=== PATIENT | female | born 1975 | race Caucasian/White ===

== ENCOUNTER → 2019-02-20 10:51 | Outpatient (CLI) | payer OTHER, SELFPAY ==
[2019-02-23 10:20] LABS: HPV Reflexed? NOT INDICATED
== END ==
PROVIDERS: Referring Provider Obstetrics & Gynecology; Visit Provider Obstetrics & Gynecology
DX: Z01.419 Encounter for gynecological examination (general) (routine) without abnormal findings (principal)
CPT/HCPCS: 87624; 88175; G0145

== ENCOUNTER → 2024-06-13 | Outpatient (CLI) | payer OTHER, SELFPAY ==
--- NOTE | 2024-06-13 | IMM_PTH ---
PATIENT: STEPHANIE LIN LOC: [facility] U#:[id number] AGE/SX: 48/F ROOM: RE06/13/[address]: Dr. Gareth Mcdaniel MD : 1975 BED: DIS: 06/13/2024 SPEC #: [id number] RECD: 06/17/24 10:29 STATUS: CAMPOS REQ #: [id number] ROSITA: 06/13/24 00:[address]: Gareth Mcdaniel DEPT: IMMUNOHISTOCHEMISTRY RECD BY: Roberto Elise ENTERED: 06/17/24 10:31 SP TYPE: IMMUNO OTHR DR: TATE Genao Tissues: A - Left breast, NOS B - Axillary lymph node, NOS Procedures: E-CAD (initial) Mammoglobin (initial) CALPONIN-1 (add) CK5-6 (add) CK7 (add) CK8 (add) E-CAD (add) HER2 QUAN (add) KI-67 (add) P53 (add) AK (add) GATA3 (add) P40 (add) ER (initial) PHYSICIAN & [address] [address] SPECIMEN INFORMATION: Tissue Source: A- Left breast, B- Axillary lymph node Clinical Info: Left breast mass and axillary lymph node biopsy Specimen Number: [id number] A, B CPT code: [id number] METHODOLOGY: Deparaffinized sections of prefer/formalin-fixed tissue or PAP/DQ stained slides are incubated with monoclonal/polyclonal antibodies/oligonucleotide probes. Localization is made via biotin free immunoperoxidase method. Appropriate controls are performed and reacted as expected. Results on target cell population are indicated in the following table: RESULTS: ANTIBODY / CLONE RESULT Block A E-Cad (ECH-6) positive CK8 (37mahzN63) positive Calponin-1 (DY711N) negative * CK5-6 (D5 & 1684) negative * P40 (BC28) negative * P53 (DO-7) positive, rare cells (wild type pattern) Ki-67 (30-9) positive, low, ~10% * Positive in the myoepithelial cells in the areas of ductal carcinoma in situ MORPHOMETRIC ANALYSIS ER (clone 6F11) >95%, moderate intensity AK (clone 16/1E2) >95 %, strong intensity Her-2Neu (clone CB11) 2+ The prognostic test for HER2 is performed on formalin-fixed paraffin embedded tissue. A 3+ (positive) staining pattern is defined as intense, homogeneous, complete, circumferential membranous staining in >10% of contiguous tumor cells. A similar weak (2+) staining pattern is interpreted as equivocal. LISA follow-up testing is recommended for all equivocal cases. Positivity/negativity for ER/AK is reported if > or < 1% of the tumor cells are immuno- reactive, respectively. The ASCO/CAP criteria is used for scoring. Reference: Journal of Clinical Oncology, 2013; 31:3622-5677 & 2010; 16:8871-5998. Ischemic time: Less than one hour. Duration of fixation: __ Hrs; Sample Adequate: Yes. These assays have not been validated on decalcified tissues. Results should be interpreted with caution given the likelihood of false negativity on decalcified specimens or fixation greater than 72 hours. Alternative testing methods (FISH/dualISH for Her2; gene expression for ER) are recommended, if applicable. Please notify the laboratory if additional testing is required. Block B E-Cad (ECH-6) positive Mammaglobin (31A5) negative GATA3 (L50-823) positive CK7 (OV-TL12/30) positive CK8 (60fmrcF58) positive These tests were developed and their performance characteristics determined by [facility]. They may not have been cleared or approved by the U.S. Food and Drug Administration. The FDA has determined that such clearance or approval is not necessary. The above immunohistochemical/dualISH markers are ordered and reviewed by the Pathologist. INTERPRETATION: A. 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 Positive for estrogen receptors (favorable prognostic indicator). Positive for progesterone receptors (favorable prognostic indicator). Equivocal for overexpression of LWB5vyw. B. Left axillary lymph node, biopsy: Metastatic carcinoma, consistent with breast primary (ductal carcinoma). SJ.mr 06/18/2024
--- NOTE | 2024-06-13 15:15 | BREAST_PTH ---
PATIENT: STEPHANIE LIN LOC: [facility] U#:[id number] AGE/SX: 48/F ROOM: RE06/13/[address]: Dr. Gareth Mcdaniel MD : 1975 BED: DIS: 06/13/2024 SPEC #: [id number] RECD: 06/14/24 08:49 STATUS: CAMPOS RETahmina #: [id number] ROSITA: 06/13/24 15:[address]: Gareth Mcdaniel DEPT: SURGICAL PATHOLOGY RECD BY: Roberto Elise ENTERED: 06/14/24 08:50 SP TYPE: BREAST OTHR DR: TATE Genao Tissues: A - Left breast, NOS B - Axillary lymph node, NOS Procedures: Surgery Specimen Level IV HEADER OPERATION: Left breast and left axillary lymph node biopsy PRE-OP DIAGNOSIS: Left breast mass and axillary lymph node biopsy TISSUE SUBMITTED: A- Left breast mass, B- Left axillary lymph node MICROSCOPIC DIAGNOSIS A. Left breast mass, core biopsy: Invasive ductal carcinoma. Ductal carcinoma in situ. See cancer summary in the comment section. B. Left axillary lymph node, core biopsy: Metastatic carcinoma, consistent with breast primary. 06/17/2024 COMMENT A. Immunohistochemistry ([id number]) supports the above diagnosis. INVASIVE BREAST CANCER SUMMARY: Procedure: Needle core biopsy Specimen Laterality: Left Tumor site: Not specified Histologic type: Invasive ductal carcinoma, not otherwise specified Provisional Histologic grade: Glandular/tubule Differentiation Score: 2 Nuclear Pleomorphism Score: 2 Mitotic Rate Score:1 Overall grade: 1 (score of 5) Tumor Size (greatest dimension): 1.1cm in greatest length Ductal Carcinoma In situ: Present Architectural Pattern: Solid Nuclear Grade: 2 Necrosis: Not identified Angiolymphatic Invasion: Not identified Microcalcifications: Not identified Additional Findings: None Breast Marker Study: RF25-32 ER: positive (>95, moderate intensity) RI: positive (>95, strong intensity) Her2: equivocal (2+) Ki67: positive, low, ~10% [id number]: is being performed and will be reported as an addendum. The above summary is in compliance with [employer] [place] [employer] (CAP) Cancer Protocols Checklist and [place] [employer] Joint Committee on Cancer (AJCC), Staging Manual, 8th Ed. B. Immunohistochemistry ([id number]) supports the above diagnosis. Metastatic tumor measures 0.5 cm in greatest dimension. This case has been reviewed in consultation with Dr. Goetz who concurs with the above diagnosis. IDC:PW MICROSCOPIC DESCRIPTION Slides are reviewed. GROSS DESCRIPTION A. Received in fixative is one container labeled with the patient's name and designated Left breast. The specimen consists of multiple elongated fragments of barber soft tissue that in aggregate measure 1.5 x 0.3 x 0.1 cm. The specimen is totally submitted in one cassette. B. Received in fixative is one container labeled with the patient's name and designated Left axillary lymph node. The specimen consists of multiple elongated fragments of barber-yellow soft tissue that in aggregate measure 1.5 x 0.3 x 0.1 cm. The specimen is totally submitted in one cassette. 06/14/2024 TC:0 CPT:[id number] ADDENDUM ADDENDUM ADDENDUM ADDENDUM ADDENDUM ADDENDUM ADDENDUM ADDENDUM ADDENDUM ADDENDUM ADDENDUM ADDENDUM ADDENDUM ADDENDUM ADDENDUM ADDENDUM ADDENDUM 07/05/2024 13:36 ADDENDUM 07/05/2024 13:36 ADDENDUM 07/05/2024 13:36 ADDENDUM 07/05/2024 13:36 ADDENDUM 07/05/2024 13:36 AUTOMATED BREAST CANCER HER2/QUAN FISH ANALYSIS FROM [employer] TEST DESCRIPTION INTERPRETATION AND RESULTS [id number] NEGATIVE / NOT AMPLIFIED Her2: CEP-17 ratio: 1.4:1 Average HER2 signal: 3.8 Average CEP-17 signal: 2.7 Number of selected invasive cells scanned: 50 Please see complete report in e-chart or EMR
== END | disposition home or self-care (01) ==
LOC: LABSPEC 06-14 08:29
PROVIDERS: Visit Provider Surgery
DX: N63.20 Unspecified lump in the left breast, unspecified quadrant (principal)
CPT/HCPCS: 88305; 88341; 88342

== ENCOUNTER → 2024-06-24 | Outpatient (CLI) | payer OTHER, SELFPAY ==
--- NOTE | 2024-06-24 12:35 | MRI_ITS ---
STUDY: BILATERAL BREAST MR WITHOUT AND WITH CONTRAST REASON FOR EXAM: Female, 48 years old. Left breast cancer TECHNIQUE: Multi-sequence multi-echo imaging of both breasts was performed with a dedicated breast coil. T1-weighted and T2-weighted images were performed before the administration of contrast. T1-weighted images were also performed after the intravenous administration of 14 cc of Clariscan contrast. COMPARISON: Bilateral diagnostic mammogram dated June 10, 2024 and left breast ultrasound June 10, 2019 FINDINGS: RIGHT BREAST: Heterogeneously dense fibroglandular tissue with minimal background enhancement. No abnormal enhancing masses or areas of non-mass enhancement in the right breast. LEFT BREAST: Heterogeneously dense fibroglandular tissue with minimal background. Irregular enhancing mass at the 2:00 to 3:00 position measuring 2.3 cm x 1.2 cm x 2 cm with a tissue clip artifact within the mass. This mass corresponds to the mass shown on the left breast ultrasound examination. No other abnormal enhancing areas identified. No enlarged or abnormal lymph nodes. No abnormality in the visualized regions of the chest or liver. MRI/Breast Bilateral W/O and W IMPRESSION: Enhancing mass at the 2:00 to 3:00 position of the left breast corresponding to the ultrasonographic abnormality representing the index lesion. No other abnormality identified. CATEGORY: BIRADS Category 6: Known Biopsy-Proven Malignancy - Appropriate Action Should Be Taken. A letter regarding these results will be sent to the patient by the facility within 30 days. Electronically Signed: Luisito Arevalo MD at 12:53 EST ,
== END | disposition home or self-care (01) ==
LOC: MRI 12:30
PROVIDERS: Referring Provider Surgery; Visit Provider Surgery
DX: C50.919 Malignant neoplasm of unspecified site of unspecified female breast (principal)
CPT/HCPCS: 77049; A9575; A4216; C8908

== ENCOUNTER → 2024-07-16 | Outpatient (CLI) | payer OTHER, SELFPAY ==
--- NOTE | 2024-07-16 12:29 | CT_ITS ---
PROCEDURE: CHEST WITH CONTRAST REASON FOR EXAM: Left breast cancer with lymph node involvement. TECHNIQUE: Chest CT with intravenous contrast. One or more dose reduction techniques were used (e.g., Automated exposure control, adjustment of the mA and/or kV according to patient size, use of iterative reconstruction technique). CT Dose Length Product Total 343.47 mGy.cm COMPARISON: None. FINDINGS: Hardware: None. Lymph nodes: No mediastinal, hilar or axillary lymphadenopathy. Small nonspecific bilateral axillary lymph nodes are noted. Heart and Vasculature: Normal heart size. No pericardial effusion. Thoracic aorta and pulmonary arteries are unremarkable. Lungs and Airways: The lungs are normally expanded and clear. Pleura: No pleural effusion. No pneumothorax. Upper Abdomen: Visualized portions of the upper abdominal viscera are unremarkable. Bones: Bone windows are unremarkable. Possible surgical clip noted in the lateral left breast. CT/Chest WITH Contrast IMPRESSION: Unremarkable CT of the chest with intravenous contrast. Small nonspecific bilateral axillary lymph nodes are noted. Reading Location: [id number]
== END | disposition home or self-care (01) ==
LOC: CT 12:22
PROVIDERS: Referring Provider Student in an Organized Health Care Education/Training Program; Visit Provider Student in an Organized Health Care Education/Training Program
DX: C50.912 Malignant neoplasm of unspecified site of left female breast (principal); Z17.0 Estrogen receptor positive status [ER+]
CPT/HCPCS: 71260; Q9967

== ENCOUNTER 2024-08-13 09:32 | Day surgery (SDC) | payer OTHER, SELFPAY ==
[2024-08-13] VITALS (13 sets, daily range): BP systolic 107–138; BP diastolic 58–80; PULSE 59–100; RESP 14–18; TEMP 36.4–37.3; O2SAT 98–100; BMI 22.4
[2024-08-13 09:59] LABS: Internal QC Validated? YES +Cl - CLEAR BKGD; Pregnancy, Urine Negative Negative
--- NOTE | 2024-08-13 10:02 | NM_ITS ---
PROCEDURE: LYMPH NODE INJECTION ONLY REASON FOR EXAM: BREAST CANCER TECHNIQUE: 570 microcuries of Tilmanocept injected subdermally in the left breast. RADIOPHARMACEUTICAL: 507 microcuries of Tilmanocept COMPARISON: None FINDINGS: Subdermal injection of the radiopharmaceutical. NM/Lymph Node Injection Only IMPRESSION: Subdermal injection of the radiopharmaceutical. Reading Location: [place] [address]
--- NOTE | 2024-08-13 10:35 | PCM.PRE.AN2 ---
ASA Classification* ASA Classification ASA Classification: 2 Assessment & Plan Anesthesia* Anesthesia Assessment Anesthesia Assessment: Discussed sedation and/or anesthesia options, risks, benefits, and alternatives with patient/parents/legal guardian/POA. Questions invited. The patient/parents/legal guardian/POA seems to understand and agrees to proceed with anesthesia plan. Reviewed the physical assessment, medical history, allergy history and patient home medications list prior to surgery/procedure/anesthetic and documented any changes. Performed airway and anesthesia risk assessments. Please have background propofol for PONV prevention Anesthesia Type Anesthesia Type: General History Source History Obtained from:: Patient and Chart Anesthesia Focused Assessment* Temperature: 99.1 F Pulse Rate: 73 Blood Pressure: 138/80 Respiratory Rate: 16 Pulse Ox: 100 Oxygen Delivery Method: Room Air Airway Assessment Mouth opens: >3 cm Mallampati Score: I Teeth Condition: Intact and Chipped/Broken (front slightly chipped) Neck Range of motion (ROM): Full ROM Focused Labs Anesthesia Preop lab: CBC WBC 6.5 K/mm3 (4.4-11.0) 07/08/24 10:20 07/08/24 RBC 5.16 M/mm3 (4.2-5.4) 07/08/24 10:20 07/08/24 Hgb 11.2 g/dL (12.0-15.0) L 07/08/24 10:20 07/08/24 Hct 37.3 % (37-47) 07/08/24 10:20 07/08/24 Plt Count 292 K/mm3 (150-450) 07/08/24 10:20 07/08/24 CHEMISTRY Potassium 4.2 mmol/L (3.5-5.1) 07/08/24 10:20 07/08/24 Sodium 140 mmol/L (136-145) 07/08/24 10:20 07/08/24 BUN 12 mg/dL (7-18) 07/08/24 10:20 07/08/24 Creatinine 0.64 mg/dL (0.55-1.02) 07/08/24 10:20 07/08/24 Glucose 95 mg/dL (74-106) 07/08/24 10:20 07/08/24 COAG Urine Test Negative Negative 08/13/24 09:45 08/13/24 Pre-Assessment Diagnosis/Proposed Procedure Planned Operative Procedure(s): LEFT BREAST STEREOTACTIC WIRE LOC LUMPECTOMY X2 SLN BIOPSY AXILLARY DISECTION WITH RIGHT PORT INSERTION PER DR BURNS LEFT AXILLARY IMMEDIATED LYMPHATIC RECONSTRUCTION IWTH LYPHOVENOUS ANASTOMOSIS PER DR FLORES Anesthesia History Anesthesia History - manager residential: Anesthesia History - manager residential Hx Hospitalization No 08/01/24 13:18 Any Problems With Anesthesia No 08/01/24 13:18 Cholinesterase deficiency No 08/01/24 13:18 You/Your Family Experience No 08/01/24 13:18 fever (hyperthermia) with Relationship Recent Exposure to Contagious No 08/13/24 09:57 Disease Does patient have nerve No 08/01/24 13:18 stimulator Patient instructed to have device shut off --Does patient have Pacemaker No 08/13/24 09:57 or ICD? When Was Last Pacemaker Check QUESTION #4 FULL TEXT: You/Your Family Experience fever (hyperthermia) with Anesthesia Any additional information?: No Last Oral Intake Last Oral intake: Last Oral Intake NPO since 07:00 08/13/24 09:57 Meds taken in AM with sips of No 08/13/24 09:57 water? Meds patient instructed to take am of surgery Any additional information?: No PONV PONV - manager residential: PONV - manager residential Female Yes 08/01/24 13:18 HX of Motion Sickness Yes 08/01/24 13:18 HX of N/V After Surgery No 08/01/24 13:18 Non-Smoker Yes 08/01/24 13:18 Duration of Surgery greater Yes 08/01/24 13:18 than 60 minutes Number of Risk Factors 4 08/01/24 13:18 PONV Score Severe Risk 08/01/24 13:18 Any additional information?: No Height & Weight Height & Weight: Anesthesia: Height & Weight Height 5 ft 9 in 08/13/24 09:57 Weight: 69 kg 08/13/24 09:57 Body Mass Index (BMI) 22.4 08/13/24 09:57 Respiratory Assessment Respiratory Assessment - manager residential: Respiratory Tract Infection Hx - manager residential Hx Respiratory Tract Infection No 08/01/24 13:18 Any additional information?: No STOP Sleep Apnea STOP Sleep Apnea - manager residential: STOP Sleep Apnea - manager residential Hx Hypertension No 08/01/24 13:18 Hx Sleep Apnea No 08/01/24 13:18 CPAP BIPAP Do you snore loudly (louder No 08/01/24 13:18 than talking or can be heard Do you often feel tired/ No 08/01/24 13:18 fatigued/ sleepy during daytime? Has anyone observed you stop No 08/01/24 13:18 breathing during sleep? STOP Results Negative 08/01/24 13:18 QUESTION #5 FULL TEXT : Do you snore loudly (louder than talking or can be heard through closed doors)? 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 Specify any problems Hx of Preganancy in last 3 No 08/01/24 13:18 Months Nurse Filling Out Transfusion DSCHRIBER 08/01/24 13:18 & Questions: Date: 08/01/24 08/01/24 13:18 Time: 13:19 08/01/24 13:18 Patient unable to answer at this time (ie. confused, unrespo Any additional information?: No /Reproduction History /Reproductive History - manager residential: /Reproductive Hx- manager residential Hx Now No 08/01/24 13:18 Gestational Age (in weeks): EDC: Hx Hx Para Hx Section SAB No 08/01/24 13:18 Any additional information?: No Active Medications Active Medications: Current Medications Generic Name Dose Route Start Last Admin Trade Name Freq PRN Reason Stop Dose Admin Sodium Chloride 1,000 mls @ 15 mls/hr 08/13/24 09:50 IV 08/18/24 23:09 .Q48H [facility] Protocol PFSH Medical History Wears glasses Low iron Restless leg syndrome History of migraine Non-smoker Iron deficiency anemia due to chronic blood loss Breast cancer Abnormal mammogram of left breast Home Medications ?Medication ?Instructions ?Recorded ?Last Taken ?Type ferrous fumarate 325 mg (106 mg 325 mg PO QDAY 07/09/24 Unknown History iron) tablet ascorbic acid (vitamin C) 500 mg 500 mg PO DAILY 08/01/24 Unknown History tablet (C-500) cholecalciferol (vitamin D3) 25 25 mcg PO DAILY 08/01/24 Unknown History mcg (1,000 unit) capsule (Vitamin D3) Allergy/AdvReac Type Severity Reaction Status Date / Time No Known Allergies Allergy Verified 08/13/24 10:12 Family History Mother CVA (cerebral vascular accident) Surgical History History of Social History Smoking Status: Never smoker alcohol intake: never substance use type: does not use Review of Systems (Anesthesia) ROS Narrative System reviewed and no additional complaints, except as documented. Physical Exam Const alert, oriented x3 and average body habitus Resp normal respiratory effort, normal air movement and clear to auscultation bilaterally Cardio regular rate, regular rhythm, no murmurs and diaphoretic
--- NOTE | 2024-08-13 11:30 | BI_ITS ---
PROCEDURE: BREAST BIOPSY SPECIMEN REASON FOR EXAM: Excisional breast biopsy. TECHNIQUE: Radiograph of the operative specimen was performed. COMPARISON: None FINDINGS: The localization wire with breast tissue is seen. BI/Breast Biopsy Specimen IMPRESSION: The specimen shows a localization wire present. Follow-up code: Routine Follow-up Reading Location: [place] [address]
--- NOTE | 2024-08-13 11:30 | BI_ITS ---
PROCEDURE: BREAST BIOPSY SPECIMEN REASON FOR EXAM: Breast biopsy specimen TECHNIQUE: Radiograph of the operative specimen was obtained. COMPARISON: Prior study done earlier in the day. FINDINGS: The specimen contains the tissue clip markers. BI/Breast Biopsy Specimen IMPRESSION: The specimen contains the tissue clip marker is. Follow-up code: Routine Follow-up Reading Location: [place] [address]
--- NOTE | 2024-08-13 12:00 | LYMN_PTH ---
PATIENT: STEPHANIE LIN LOC: [facility] U#:[id number] AGE/SX: 48/F ROOM: RE08/13/[address]: Dr. Gareth Mcdaniel MD : 1975 BED: DIS: 08/13/2024 SPEC #: [id number] RECD: 08/13/24 15:34 STATUS: CAMPOS REQ #: [id number] ROSITA: 08/13/24 12:[address]: Gareth Mcdaniel DEPT: SURGICAL PATHOLOGY RECD BY: Roberto Elise ENTERED: 08/13/24 15:37 SP TYPE: LYMPH NODE OTHR DR: TATE Genao Tissues: A - Left breast, NOS B - Lymph node, NOS C - Lymph node, NOS D - Axillary lymph node, NOS E - Left breast, NOS Procedures: Frozen Section (charge) Immunohistochemical Stains Frozen Section Add'l ([facility]) Surgery Specimen Level IV IHC Stain ADDITIONAL HEADER OPERATION: Stereo wire localization lumpectomy x2, sentinel lymph node biopsy, blue dye PRE-OP DIAGNOSIS: Left breast cancer TISSUE SUBMITTED: A- Left breast lumpectomy, B- [place] lymph node #1, C- [place] lymph node #2, D- Left axillary contents, E- New anterior margins Ischemic Time: 42 minute Fixation Time: 53 hours FROZEN SECTION DIAGNOSIS B. [place] lymph node #1, biopsy: Positive for metastasis. C. [place] lymph node #2, biopsy: Positive for metastasis. MS/mr 08/13/2024 MICROSCOPIC DIAGNOSIS A: LEFT BREAST, NEEDLE-LOCALIZED LUMPECTOMY: * Invasive ductal carcinoma NST, Grade 2, surgical margins negative, pT2 pN2a. * DCIS, extensive, intermediate grade with focal necrosis, involving the anterior surgical margin. * See Comment for Synoptic Report. B: SENTINEL LYMPH NODE #1, EXCISION: * Positive for metastasis (14 mm) (/). C: SENTINEL LYMPH NODE #2, EXCISION: * Positive for metastasis (/). D: LEFT AXILLARY CONTENTS, EXCISION: * Two lymph nodes positive for metastasis (2/2). E: NEW ANTERIOR MARGINS, EXCISION: * Negative for invasive carcinoma. * Additional IHC to rule out DCIS are PENDING (to be reported in an addendum). COMMENT SYNOPTIC REPORT FOR INVASIVE BREAST CARCINOMA Specimen (P=partial, M=mastectomy): P Laterality (R=right, L=left): L Focality (U=unifocal, M=multifocal): U Tumor size (cm): 2.2 x 1.5 x 1.4 cm Histologic type: invasive ductal carcinoma Histologic grade: 2 ??? Tubule score (1-3): 3 ??? Nuclear score (1-3): 2 ??? Mitotic score (1-3): 1 Skin (I=involved, N=negative, NA=not applicable): N Lymphovascular invasion (E=extensive, F=focal, N=not identified): assessment PENDING IHC (to be reported in an addendum). Margins of main specimen (P=positive, N=negative): N Distance to closest margin of main specimen (mm): 0.5 mm Designation of closest margin of main specimen: posterior Designation of other margins of main specimen </=1 mm: NA Re-resection margin status (P=positive, N=negative, NA=not applicable): N DCIS (P=present, N=not identified): P ?? Nuclear grade: 2 ?? Comedo necrosis (P=present, N=not identified): P ?? Extensive intraductal component (P=present, N=not identified): P ?? Margins of main specimen (P=positive, N=negative): P ?? Distance to closest margin of main specimen (mm): 0 mm ?? Designation of closest margin of main specimen: anterior ?? Designation of other margins of main specimen </=2 mm: posterior ?? Longest span </= 2 mm to margin of main specimen (mm): 2.5 mm ?? Re-resection margin status (P=positive, N=negative, NA=not applicable): N Regional lymph nodes: ?? Total number of lymph nodes: 4 ?? Number of sentinel lymph nodes: 2 ?? Number with macrometastases: 4 ?? Number with micrometastases: NA ?? Number with isolated tumor cells: NA ?? Size of largest cole metastasis (mm): 14 mm ?? Size of extranodal extension (mm) (N=not identified): N Estrogen receptor: positive (95%, strong intensity) Progesterone receptor: positive (90%, intermediate intensity) HER2 IHC: equivocal (2+) HER2 FISH: PENDING (at [facility]) Specimen in which ER/OH/HER2 performed: [id number] A pTNM: pT2 pN2a Additional findings: Comment: IHCs were utilized in the assessment: E cadherin: A1, A2, A3 CK5/6: A1, A2, A3, A8, E5, E7 ER: A1, A2, A3 [place]: A1 HER2: A1 ERG*: A9, A10 *performed at [facility] The above synoptic report complies, in slightly modified form, with the guidelines of the [employer] and the Association of Directors of Anatomic and Surgical Pathology for the reporting of cancer specimens. MICROSCOPIC DESCRIPTION Slides are reviewed. These tests were developed and their performance characteristics determined by [facility]. They may not have been cleared or approved by the U.S. Food and Drug Administration. The FDA has determined that such clearance or approval is not necessary. The above immunohistochemical/dualISH markers are ordered and reviewed by the Pathologist. GROSS DESCRIPTION A: The specimen is received fresh for intraoperative consultation, in a biohazard bag, labeled with the patient's name, accession number and left breast lumpectomy, long suture- lateral, short suture- superior. It consists of an irregularly-shaped lump of yellow-white fibrofatty breast tissue with skin on it and 2 sets of sutures designated as above. The skin is present on the lateral surface of the specimen. A localization wire protrudes out of the skin. The specimen is inked as follows: Superior is blue, inferior is green, anterior is georgina, posterior is black, medial is red and lateral is orange. The specimen is sectioned from medial to lateral at 3 mm intervals, revealing an ill-defined silva-white firm gritty mass which measures 2.2 x 1.5 x 1.4 cm. The mass is located less than 1 mm from the posterior black margin and it appears to involve the anterior georgina margin. It is located 2 cm from the superior blue margin, 1.2 cm from the inferior green margin, 4.5 cm from the medial red margin and 2.5 cm from the lateral orange margin. The tip of the localization wire is located superolateral to the mass. A 3 x 2 mm hemorrhagic biopsy cavity is located in the medial aspect of the mass. The remainder of the breast tissue consists of approximately 75% rubbery white fibrous tissue with 25% fat. No other masses or lesions are identified. Cold ischemia time is 42 minutes. Slitter Processed Film sections including the entire mass are submitted as follows (RS10): Cassette summary: A1-4- mass. A5- tissue inferior to mass. A6- superior perpendicular margin A7-medial perpendicular margin A8-lateral perpendicular margin and skin A9,A10- remainder of mass. B: The specimen is received fresh for intraoperative consultation in a biohazard bag labeled with the patient's name and sentinel lymph node #1. It consists of a nodule of pink-yellow firm to fatty tissue measuring 2.5 x 1.4 x 1.4 cm. It is serially sectioned parallel to the long axis and totally frozen in 3 blocks. Totally submitted for permanent sections after frozen section consultation in cassettes B1-B3. TE3. C: The specimen is received in a biohazard bag, fresh for intraoperative consultation, labeled with the patient's name and sentinel lymph node #2. It consists of a nodule of pink tissue consistent with lymph node, which measures 1.5 x 1 x 0.5 cm. Attached to the lymph node is a segment of fat measuring 2 x 0.8 x 0.2 cm. The lymph node is sectioned parallel to the long axis and totally frozen in 1 block. This tissue is submitted for permanent section in cassette C1 after frozen section and the remainder of the tissue is submitted in cassette C2. TE2. D: The specimen is received in formalin labeled with the patient's name and left axillary contents. It consists of 2 irregularly shaped segments of yellow fatty tissue measuring in aggregate 7.5 x 3.5 x 0.5 cm. Dissection and palpation reveal 2 lymph nodes, measuring 1 cm and 1.3 cm in greatest dimension each. TE 6. Cassette summary: D1-one bivalved lymph node. D2- one bivalved lymph node D3-D6- remainder of fat. E: The specimen is received in formalin labeled with the patient's name and new anterior margins. It consists of multiple unoriented fragments of yellow-white fibrofatty breast tissue which have an aggregate measurement of 7.5 x 5.5 x 2 cm. The pieces range in size from 1.3 cm to 7 cm in greatest dimension. The 3 largest fragments have convex and concave surfaces. The concave surfaces on these fragments appear to be the old margin. The opposite surfaces of these fragments are inked blue. Sectioning through the tissue reveals approximately 60% fibrous white tissue and 40% fat. No suspicious areas are identified. The specimen is totally submitted in 13 cassettes. TE13. EH 08/14/24 CPT: 46875z6,[id number], [id number] ADDENDUM ADDENDUM ADDENDUM ADDENDUM ADDENDUM ADDENDUM ADDENDUM ADDENDUM ADDENDUM ADDENDUM ADDENDUM ADDENDUM 08/21/2024 09:44 ADDENDUM 08/21/2024 09:44 ADDENDUM 08/21/2024 09:44 ADDENDUM 08/21/2024 09:44 ADDENDUM 08/22/2024 15:14 ADDENDUM 08/29/2024 08:13 ADDENDUM 08/21/2024 09:44 This addendum is to report the findings of the additional CK5/6 IHCs performed on blocks A8, E3, E5, E7: A8) A focus of DCIS closely approaches the LATERAL surgical margin of the lumpectomy. E3,5,7) Multiple foci of usual ductal hyperplasia (UDH) are demonstrated. No DCIS is observed in these sections of the new anterior margin. Dr Mcdaniel's office was notified of the addendum report by Roberto Elise (phone call 08/21/2024, 9:45 AM). This addendum is to report the results of the IHC for ERG (blocks A9, A10) performed at [facility]: No definitive lymphovascular invasion is identified with the ERG IHC. All immunohistochemistry, in situ hybridization, and histochemical tests were developed by and are performed at the [facility], [address], [place] [address]. All Immunofluorescent (IF) tests were developed by and are performed at the [facility], [address], [place], [place] ?[address]. All tests reported here, except those addressing HER2 overexpression as a predictive marker, have not been cleared by or approved by the US Food and Drug Administration (FDA). The laboratory is regulated under CLIA as qualified to perform high-complexity testing. The tests are used for clinical purposes. They should not be regarded as investigational or for research. This addendum is added to incorporate an outside pathology consultation report. The case was examined at [facility] (#[id number]) and the following diagnosis was rendered. Left breast, needle -localized lumpectomy: HER2 score: NEGATIVE HER2 FISH RESULT HER SCORE: NEGATIVE HER2 / CEP17 RATIO: 1.4 HER2 COPY NUMBER / CELL: 3.8 Please see complete report in e-chart or EMR *
--- NOTE | 2024-08-13 12:06 | PCM.HP.STD ---
HPI - General General Date of Admission: 08/13/24 Date of Service: 08/13/24 Chief Complaint: BREAST cancer HPI Narrative STEPHANIE LIN, is a 48 F who presents for left breast lumpectomy and axillary disection/SLN bx along with port placement patient recently diagnosed with left breast cancer [facility] Medical History Wears glasses Low iron Restless leg syndrome History of migraine Non-smoker Iron deficiency anemia due to chronic blood loss Breast cancer Abnormal mammogram of left breast Home Medications ?Medication ?Instructions ?Recorded ?Last Taken ?Type ferrous fumarate 325 mg (106 mg 325 mg PO QDAY 07/09/24 Unknown History iron) tablet ascorbic acid (vitamin C) 500 mg 500 mg PO DAILY 08/01/24 Unknown History tablet (C-500) cholecalciferol (vitamin D3) 25 25 mcg PO DAILY 08/01/24 Unknown History mcg (1,000 unit) capsule (Vitamin D3) Allergy/AdvReac Type Severity Reaction Status Date / Time No Known Allergies Allergy Verified 08/13/24 10:12 Family History Mother CVA (cerebral vascular accident) Surgical History History of Social History Smoking Status: Never smoker alcohol intake: never substance use type: does not use Vital Signs Vital Signs Vital Signs: 08/13/24 09:57 08/13/24 09:57 08/13/24 10:43 Temperature 99.1 F 99.1 F Temperature Source Temporal Pulse Rate 73 73 Respiratory Rate 16 16 Respiratory Pattern Normal Blood Pressure 138/80 H 138/80 H Blood Pressure Mean 99 Blood Pressure Source Monitor Blood Pressure Position Semi-Fowlers Blood Pressure Location Left Arm Pulse Ox 100 100 Oxygen Delivery Method Room Air Room Air Weight Weight: 152 lb 1.903 oz Body Mass Index (BMI) 22.4 Results Lab / Micro Data Labs: Laboratory Results - last 24 hr 08/13/24 09:45: Urine Test Negative Imaging Radiology Impression [place] Node 08/13/24 10:02 IMPRESSION: Subdermal injection of the radiopharmaceutical. Reading Location: [facility] Assessment & Plan Assessment/Plan (1) Breast cancer: QUALIFIERS: Breast location: unspecified site of breast Estrogen receptor status: positive Patient sex: female Laterality: left Qualified Code(s): C50.912 - Malignant neoplasm of unspecified site of left female breast; Z17.0 - Estrogen receptor positive status [ER+] PLAN: Plan left breast lumpectomy and SLN Bx / axillary disection along w port placement today
--- NOTE | 2024-08-13 12:23 | PCM.HP.STD ---
[facility] - General General Date of Admission: 08/13/24 Chief Complaint: BREAST cancer [facility] Narrative Susan Chu is a delightful 48-year-old female with past medical history of recently diagnosed ER/TX+ left breast cancer which will likely require left axillary lymph node dissection. She recently met with my partner Dr. Florina Hall to discuss breast reconstruction options, and she follows with Dr. Mcdaniel who is her breast surgeon. The patient has decided on breast conserving therapy with lumpectomy and radiation. I talked to the patient today about immediate lymphatic reconstruction with lymphovenous anastomoses at the time of axillary dissection. No plan for neoadjuvant chemotherapy at this time. Plan from radiation oncology is radiation to the breast and the left axilla. The patient reports that they do not have any personal or family history of bleeding or clotting disorders. No history of problems with anesthesia. Caprini score 5 for her history of malignancy She has had 2 C sections Current Encounter (DATE OF SURGERY H&P UPDATE): I saw and examined the patient this morning in pre-operative holding. We discussed risks and benefits of today's surgery and they would like to proceed. NO CHANGE in health history since last seen and evaluated. Ready to proceed with surgery. [facility] Medical History Wears glasses Low iron Restless leg syndrome History of migraine Non-smoker Iron deficiency anemia due to chronic blood loss Breast cancer Abnormal mammogram of left breast Home Medications ?Medication ?Instructions ?Recorded ?Last Taken ?Type ferrous fumarate 325 mg (106 mg 325 mg PO QDAY 07/09/24 Unknown History iron) tablet ascorbic acid (vitamin C) 500 mg 500 mg PO DAILY 08/01/24 Unknown History tablet (C-500) cholecalciferol (vitamin D3) 25 25 mcg PO DAILY 08/01/24 Unknown History mcg (1,000 unit) capsule (Vitamin D3) Allergy/AdvReac Type Severity Reaction Status Date / Time No Known Allergies Allergy Verified 08/13/24 10:12 Family History Mother CVA (cerebral vascular accident) Surgical History History of Social History Smoking Status: Never smoker alcohol intake: never substance use type: does not use Vital Signs Vital Signs Vital Signs: 08/13/24 09:57 08/13/24 09:57 08/13/24 10:43 Temperature 99.1 F 99.1 F Temperature Source Temporal Pulse Rate 73 73 Respiratory Rate 16 16 Respiratory Pattern Normal Blood Pressure 138/80 H 138/80 H Blood Pressure Mean 99 Blood Pressure Source Monitor Blood Pressure Position Semi-Fowlers Blood Pressure Location Left Arm Pulse Ox 100 100 Oxygen Delivery Method Room Air Room Air Weight Weight: 152 lb 1.903 oz Body Mass Index (BMI) 22.4 Physical Exam Narrative LEFT AXILLA No obvious left axillary lymphadenopathy No baseline LUE swelling/lymphadenopathy s/p wire placement left breast Results Lab / Micro Data Labs: Laboratory Results - last 24 hr 08/13/24 09:45: Urine Test Negative Imaging Radiology Impression [place] Node 08/13/24 10:02 IMPRESSION: Subdermal injection of the radiopharmaceutical. [facility] Assessment & Plan Assessment/Plan (1) Breast cancer: QUALIFIERS: Breast location: unspecified site of breast Estrogen receptor status: positive Patient sex: female Laterality: left Qualified Code(s): C50.912 - Malignant neoplasm of unspecified site of left female breast; Z17.0 - Estrogen receptor positive status [ER+] PLAN: Plan We had an extensive discussion about the risk of developing lymphedema in the months following lymph node sampling. We discussed the varying rates of lymphedema after sentinel node biopsy and after axillary lymph node dissection, which are approximately 6 to 13% and 13 to 65%, respectively. We discussed that studies have shown that patients who had immediate lymphatic reconstruction following axillary dissection (known as LYMPHA) have subsequent lymphedema rates as low as 4% (with lymphedema and rates around 30% in the lymphedema control groups). We discussed conflicting data about immediate lymphatic reconstruction and how more studies need to be performed; however, I also offered her my opinion that I believe it is oncologically safe and effective. Studies have demonstrated metastatic disease at 2 years to be similar between reconstructed and non-reconstructed cohorts (about 12% rate of metastatic disease in both), which I discussed with the patient. After our discussion, she would like to proceed with left immediate lymphatic reconstruction if she requires a left lymph node dissection at the time of the mastectomy and lymph node sampling. We discussed extensively the risks of increased operative time and the risks of anesthesia including strokes (from ischemia/hypovolemia). We discussed the risks of blood clots from prolonged immobilization/general anesthesia. INTERVAL H&P PLAN, DATE OF SURGERY: I spoke with the patient again about the above noted risks and benefits of possible lymphatic reconstruction with immediate lymphovenous bypass. We talked about oncologic safety, risks of anesthesia (prolonging the OR time), as well as post-operative compression and restrictions. She elected to proceed. We will proceed with surgery today.
[2024-08-13] MEDS: Cefazolin 2 GM in Syringe 10 ML IV (12:54)
[2024-08-13] MEDS: Bupiv/Epi 0.25% 30 ML Vial (13:00)
--- NOTE | 2024-08-13 13:21 | PCM.OPRPT ---
Operative Report (Standard) Operative Information Date of Procedure: 08/13/24 Pre-Operative Diagnosis: Left breast cancer with left axillary dissection Post-Operative Diagnosis: Same Surgery/Procedure Performed: 1) No reconstructive surgery required. Physician on standby for possible LVA from (1:30 PM to 3:30 pm, CPT 26175 x 4 Units (Five 30 minute increments)) publishing director: No Type of Anesthesia: General RN Documented Start/Stop Times: Operation Date: 08/13/24 12:00 Case Time Into Pre-Op 08/13/24 09:44 Anesthesia Start 08/13/24 12:29 Into Room 08/13/24 12:29 Procedure Start 08/13/24 12:56 Procedure Start Time: 14:00 Procedure Stop Time: 16:00 Select all DRAINS/GRAFTS/IMPLANTS that apply: None Estimated Blood Loss: none Specimen collected: No Description of surgery: Indications: Susan Chu is a delightful 48-year-old female who on the date of surgery underwent left lumpectomy with lymph node sampling and a full left axillary lymph node dissection of levels 1 and 2 by the general surgery service. Plastic surgery was called into the room for immediate lymphatic reconstruction. Preoperatively I talked to the patient about the risks, benefits, and alternatives to this procedure, and they agreed to proceed if indicated. PROCEDURE DETAILS I was on standby from 1:30 pm to 3:30 pm for possible lymphovenous bypass to reconstruct the left axillary lymphatics. I was a family practice physician assistant to Dr. Mcdaniel for a short portion of the left axillary dissection (please see his separate operative dictation for details). A small amount of Lymphazurin was injected intradermally along the medial left arm in the style of reverse axillary mapping. The left arm carefully so as to promote uptake of the Lymphazurin into the left axilla. There were no obvious transected lymphatics within the wound (no spill of the Lymphazurin was seen) and therefore no targets for reconstruction. Surgical Findings: No targets for lymphatic reconstruction in the left axilla Complications Complications: No
[2024-08-13] MEDS: Isosulfan Blue 1% 5 ML Vial ×2 (14:00→15:46)
--- NOTE | 2024-08-13 17:03 | EX.PCM.DISCH ---
Discharge Instructions Diet Discharge Diet: Light diet - advance as tolerated Activity Discharge Activity: Return to Normal Activity and May Shower May shower in (days): 1 Ice area for (Minutes): 30 Dressing / Incision Call your doctor if your incision/area has: Continuous Slow Oozing, Sudden Increased Bleeding, Increased Pain/ Swelling, Increased Redness, Foul Smelling Discharge and Swelling at the incision site Call your doctor if you observe: Fever of 101 or Higher Cleanse incision/area with: Soap & Water Additional Dressing/Incision Instructions:: Okay to remove Alejandro wrap and gauze prior to first shower. Recommend sports bra or Alejandro wrap for compression. Follow Up Care Please Follow Up With: Gareth Mcdaniel MD When: 1 week. Please call office to schedule appointment. Test Results: Test results from this visit will be discussed in further detail at your follow-up appointment, if applicable. Discharge Plan Admission Primary Reason for Your Visit: Left breast lumpectomy Attending Provider: Gareth Mcdaniel Primary Care Provider: Keira Castillo Instructions Print Language: Icelandic Discharge Orders/Prescriptions Prescriptions: New hydrocodone-acetaminophen 5-325 mg tablet 1 tab PO Q8H PRN (Reason: pain) 4 Days Qty: 10 0RF Continued ferrous fumarate 325 mg (106 mg iron) tablet 325 mg PO QDAY ascorbic acid (vitamin C) [C-500] 500 mg tablet 500 mg PO DAILY cholecalciferol (vitamin D3) [Vitamin D3] 25 mcg (1,000 unit) capsule 25 mcg PO DAILY Referrals / Follow Up: Keira Castillo PA [Primary Care Provider] - Disposition Disposition (needs filled in before D/C Order can be placed): Home, Self Care
--- NOTE | 2024-08-13 17:05 | RAD_ITS ---
PROCEDURE: CXR FOR LINE PLACEMENT REASON FOR EXAM: NEW PORT TECHNIQUE: Frontal view(s) of the chest. COMPARISON: Chest x-ray dated 08/13/2024. FINDINGS: Right chest MediPort is present. The cardiac silhouette is stable in size. No focal infiltrate or consolidation is seen within the lungs. There are no acute osseous abnormalities present. Surgical clips seen within the left axillary region, likely from axillary node dissection. Correlate clinically. RAD/CXR for Line Placement IMPRESSION: Right chest MediPort. No definite new infiltrate or consolidation is seen with in the lungs. Reading Location: [id number]
--- NOTE | 2024-08-13 17:16 | PCM.POST.ANE ---
Anesthesia: Postop Eval I Current Vital Signs Temperature: 98.5 F Pulse Rate: 100 Blood Pressure: 124/68 Respiratory Rate: 18 Pulse Ox: 98 Oxygen Delivery Method: Room Air Assessment Airway patent: Yes Spontaneous unlabored respirations: Yes Mental status: Awake nausea: No Vomiting: No Anesthesia Complication: No Fluid Hydration Crystalloid volume administer (ml): 1,900 Total IV fluid infused: 1,900 Progress Note Anesthesia document: Postop Eval 1 completed: Yes
--- NOTE | 2024-08-13 17:47 | PCM.OPRPT ---
Problems Associated Problem List Diagnoses (1) Breast cancer: Oncology: Peyton Requirements . Oncology surgical intervention performed: Axillary Lymph Node Dissection for Breast Cancer performed Axillary Lymph - Breast Cancer: Synoptic Portion: Element Response Options Operation performed with curative intent. Yes Resection was performed within the boundaries of the axillary vein, chest wall (serratus anterior), and latissimus dorsi. Yes Nerves identified and preserved during dissection (select all that apply) Long thoracic nerve; Thoracodorsal nerve; Branches of the intercostobrachial nerves Level III nodes were removed. Yes Emily Node Biopsy for Breast Cancer performed Emily Node Bx - Breast Cancer: Synoptic Portion: Element Response Options Operation performed with curative intent. Yes Tracer(s) used to identify sentinel nodes in the upfront surgery (non-neoadjuvant) setting (select all that apply). Dye; Radioactive tracer Tracer(s) used to identify sentinel nodes in the neoadjuvant setting (select all that apply). N/A. All nodes (colored or non-colored) present at the end of a dye-filled lymphatic channel were removed. Yes All significantly radioactive nodes were removed. Yes All palpably suspicious nodes were removed. Yes Biopsy-proven positive nodes marked with clips prior to chemotherapy were identified and removed. Yes Multi Select Codes Integumentary Integumentary CPT Codes: 51764 Perq dev breast 1st us imag and 09534 Partial mastectomy Respiratory/Cardiovascular Resp/Cardiovascular CPT Codes: 04187 Insert tunneled cv cath, 68468 Biopsy/removal lymph nodes and 43812 Ra tracer id of sentinl node Operative Report (Standard) Operative Information Date of Procedure: 08/13/24 Pre-Operative Diagnosis: Left breast cancer Post-Operative Diagnosis: Left breast cancer Surgery/Procedure Performed: 1. Right subclavian Mediport placement with C arm. 2. Left breast wire localized lumpectomy 3. Ultrasound-guided localization wire placement in left axilla 4. Left axillary sentinel lymph node biopsy 5. Left axillary lymph node dissection. accounting instructor: Yes Resident Inspector: Karen Richards Tasks completed by list of first job ideas: Closing and Retracting Additional human resource assistant?: Yes Additional Senior Web Services Developer #2: Angel Bernardo Tasks completed by human resource assistant #2: Other Additional human resource assistant?: No Type of Anesthesia: General and Local RN Documented Start/Stop Times: Operation Date: 08/13/24 12:00 Case Time Into Pre-Op 08/13/24 09:44 Anesthesia Start 08/13/24 12:29 Into Room 08/13/24 12:29 Procedure Start 08/13/24 12:56 Procedure End 08/13/24 16:48 Anesthesia End 08/13/24 16:58 Out of Room 08/13/24 16:58 Into Recovery 08/13/24 17:00 Procedure Start Time: 12:56 Procedure Stop Time: 16:48 Select all DRAINS/GRAFTS/IMPLANTS that apply: Implanted device Implanted device details: 8 Vincentian PowerPort Special Medications: 2 g Ancef IV Estimated Blood Loss: 30 mL Specimen collected: Yes Description of specimen(s) removed: 1. Left breast lumpectomy specimen 2. New anterior margin of the left breast lumpectomy 3. Left axillary sentinel lymph node biopsy #1 4. Left axillary sentinel lymph node biopsy #2 5. Left axillary contents Description of surgery: The patient is a 48-year-old female who was recently discovered with left breast cancer. This was discovered as a palpable mass developed. This was biopsied as well as a suspicious lymph node. Both were consistent with breast cancer. After extensive workup, surgical options were discussed and she wished to proceed with lumpectomy and axillary node sampling/dissection. We discussed the details of the planned procedure and she wished to proceed. She will likely need chemotherapy and she requested that Mediport be placed at the time of the surgery as well. Patient was brought to the operating room today following informed consent. Preoperative antibiotics were given and a timeout was performed. Earlier in the day Lymphoseek radioactive tracer was injected into the left periareolar area. A stereotactic wire was placed earlier in the day in radiology as well. A wire was attempted to be placed in the left axilla in radiology but was unable to be performed due to its location. Patient was placed supine on the operative table with arms outstretched on arm boards. A general endotracheal anesthesia was induced. Once adequately sedated the right side of the neck and chest were prepped and draped in the usual sterile manner for placement of the right-sided Mediport. An axillary roll was placed between her shoulder blades. Local anesthetic was then injected into the right periclavicular area. Using the supplied needle and syringe, the right subclavian vein was cannulated. The blood return was a dark red venous appearing blood return. Guidewire was then threaded through the aperture and the needle and secured to the drapes. C-arm was brought in and confirmed good positioning of the wire. The subcutaneous pocket was then created by injecting local anesthetic and then using a #15 blade to make about a 2-1/2 to 3 cm incision just below the entry point of the guidewire. A subcutaneous pocket was created using Bovie electrocautery. Another small incision was made at the entry point of the guidewire. The Mediport tubing was connected to the tunneler and this was tunneled into the larger incision and up and out through the smaller incision. The tubing was cut to about 19 cm. It was attached to the port hub. The hub was then affixed to the chest wall in the pocket using Prolene suture x 2. This fit nicely. The dilator and tear-away sheath were then threaded over the guidewire. This was performed and advanced under C arm. The guidewire and dilator were then removed thus leaving the sheath in place. The free end of the tubing was then threaded down the sheath. The sheath was then extracted. The port was tested using injectable saline. It sonam and flushed easily. C-arm was then brought into confirm good positioning of the port and tubing. The port was then flushed with heparin. The incision overlying the hub was then closed with 3-0 Vicryl and 4-0 Vicryl. 4-0 Vicryl was also used to close the smaller incision as well. Skin glue was applied as dressing along with a sterile 2 x 2 and a large Tegaderm. A postprocedure chest x-ray was performed. The patient was then reprepped and draped for the left breast portion of the surgery. Before doing the full prep, the previously biopsied left axillary lymph node that was suspicious and positive, was localized under ultrasound using a Kopan's needle/wire. This was performed without incident. The left chest, axilla and entire left arm were then prepped and draped in the usual sterile manner. The left breast lumpectomy was performed first. An ellipse incision was made around the entry point of the guidewire. Bovie electrocautery was then used dissect down through subtendinous tissues. The mass seemed to be somewhat close to the overlying skin. Very careful dissection was performed to try to stay as close as possible to the skin anteriorly. The specimen was eventually excised. It was oriented using marking stitches. These marking sutures were such that a long stitch johnson the lateral aspect, and a shorter stitch johnson the more superior aspect. The specimen once removed was sent to radiology and confirmed clip and wire placement. The specimen was then sent to pathology for evaluation. Pathologist stated that the anterior margin seemed very close and potentially even grossly positive. At this point I did go back in and remove some additional subcutaneous tissue anteriorly. I stated as close to the skin as possible. There really was not much additional subcutaneous tissue anteriorly below the skin. This tissue was sent as new anterior margin and was sent for permanent section to pathology. The wound was then copiously irrigated. Hemostasis was achieved using electrocautery. We then turned our attention to the left axilla. An incision was made just below the hairbearing area in the left axilla. Bovie electrocautery was then used dissect down through subcutaneous tissues. The Kopan's wire was able to be traced down to the left axilla. Neoprobe was also utilized, and 2 sentinel lymph nodes which were both blue were located near the wire. The first enlarged lymph node was excised as sentinel lymph node 1. This was x-rayed and did confirm the clip from the previous biopsy. The sentinel lymph node #2 was then removed as well. Both of these were sent to pathology. Both were positive on frozen section. No additional sentinel lymph nodes were encountered as no additional lymph nodes were blue or radioactive. A complete left axillary node dissection was performed. Most of the other lymph node seems to be of more normal size and appearance. Hemostasis was achieved. At this point we asked Dr. Bernardo to come evaluate the axilla for evaluation of a lymphovascular bypass to decrease chances of developing lymphedema. He will dictate his portion of the evaluation. It was eventually noted that no lymphatic leakage was readily apparent with injection of dye and so lymphovascular bypass was not indicated. He did assist with portion of the axillary dissection as well. Again he will dictate his note separately. Finally, the wounds were again irrigated and hemostasis was reconfirmed. Both incisions were closed in a subdermal layer using 3-0 Vicryl. 4-0 Vicryl was then used to close the skin. Dermabond was also applied. 4 x 4 fluffs and an Alejandro wrap were then applied. She was awakened from anesthesia and taken to recovery in good condition. A MANAGER OF HOUSEKEEPING was utilized as a first coat operator. Her role included assistance with positioning, retraction, and incision closure Surgical Findings: See description of surgery Complications Complications: No Admit VTE Documentation VTE Present on Admission: No VTE Mechan Device Prophylaxis: SCD's VTE Pharm Prophylaxis ordered?: No Reason prophylaxis not ordered: Treatment Not Indicated
--- NOTE | 2024-08-13 18:39 | POSTOPAN2_ITS ---
Anesthesia Postop Eval I Sum Postop Eval Completion status Anesthesia document: Postop Eval 1 completed: Yes Anesthesia Postop Eval I Summary Anesthesia Postop Eval I Summary: Anesthesia Postop Eval I: Assessment Summary Airway patent Yes 08/13/24 17:17 FOLDING MACHINE FEEDER.ACAR Spontaneous unlabored Yes 08/13/24 17:17 FOLDING MACHINE FEEDER.ACAR respirations Mental status Awake 08/13/24 17:17 FOLDING MACHINE FEEDER.ACAR nausea No 08/13/24 17:17 FOLDING MACHINE FEEDER.ACAR Vomiting No 08/13/24 17:17 FOLDING MACHINE FEEDER.ACAR Anesthesia Postop Eval I: Fluid Summary Crystalloid volume administer 1,900 08/13/24 17:17 FOLDING MACHINE FEEDER.ACAR (ml) Colloids volume administered ( ml) Blood Product volume administered (ml) Total IV fluid infused 1,900 08/13/24 17:17 FOLDING MACHINE FEEDER.ACAR Anesthesia Postop Eval I: Summary Notes Anesthesia Complication No 08/13/24 17:17 FOLDING MACHINE FEEDER.ACAR Anesthesia Complication Comment: Post-operative progress note Anesthesia: Postop Eval II Evaluation Mental status: Awake Pain Level: 0 nausea: No Vomiting: No Complications Anesthesia Complication: No
--- NOTE | 2024-08-13 18:39 | PCM.POSTANE2 ---
Anesthesia Postop Eval I Sum Postop Eval Completion status Anesthesia document: Postop Eval 1 completed: Yes Anesthesia Postop Eval I Summary Anesthesia Postop Eval I Summary: Anesthesia Postop Eval I: Assessment Summary Airway patent Yes 08/13/24 17:17 SPECIAL EDUCATION ASSOCIATE.ACAR Spontaneous unlabored Yes 08/13/24 17:17 SPECIAL EDUCATION ASSOCIATE.ACAR respirations Mental status Awake 08/13/24 17:17 SPECIAL EDUCATION ASSOCIATE.ACAR nausea No 08/13/24 17:17 SPECIAL EDUCATION ASSOCIATE.ACAR Vomiting No 08/13/24 17:17 SPECIAL EDUCATION ASSOCIATE.ACAR Anesthesia Postop Eval I: Fluid Summary Crystalloid volume administer 1,900 08/13/24 17:17 SPECIAL EDUCATION ASSOCIATE.ACAR (ml) Colloids volume administered ( ml) Blood Product volume administered (ml) Total IV fluid infused 1,900 08/13/24 17:17 SPECIAL EDUCATION ASSOCIATE.ACAR Anesthesia Postop Eval I: Summary Notes Anesthesia Complication No 08/13/24 17:17 SPECIAL EDUCATION ASSOCIATE.ACAR Anesthesia Complication Comment: Post-operative progress note Anesthesia: Postop Eval II Evaluation Mental status: Awake Pain Level: 0 nausea: No Vomiting: No Complications Anesthesia Complication: No
== END 2024-08-13 19:20 | disposition home or self-care (01) ==
LOC: SDC 09:32 → AC 09:35
PROVIDERS: Anesthesiology; Referring Provider Surgery; Visit Provider Surgery
PROC: 0HBV0ZZ Excision of Bilateral Breast, Open Approach (ICD-10-PCS; CPT 19302; principal; 2024-08-13 11:30)
PROC: (CPT 19302; 2024-08-13 11:30)
DX: C50.912 Malignant neoplasm of unspecified site of left female breast (principal); C77.3 Secondary and unspecified malignant neoplasm of axilla and upper limb lymph nodes; Z17.0 Estrogen receptor positive status [ER+]; D50.0 Iron deficiency anemia secondary to blood loss (chronic)
CPT/HCPCS: 19302; 36561; 00404; 38792; 19281; 71045; 76098; 77001; 81025; 88305; 88331; 88332; 88341; 88342; A4648; A9520; C1788; J2405; Q9968

== ENCOUNTER 2024-09-11 09:50 | Day surgery (SDC) | payer OTHER, SELFPAY ==
[2024-09-11] VITALS (7 sets, daily range): BP systolic 102–146; BP diastolic 59–81; PULSE 73–106; RESP 16–18; TEMP 36.5–36.8; O2SAT 100; BMI 22.1
--- NOTE | 2024-09-11 10:10 | PCM.PRE.AN2 ---
ASA Classification* ASA Classification ASA Classification: 2 Assessment & Plan Anesthesia* Anesthesia Assessment Anesthesia Assessment: Discussed sedation and/or anesthesia options, risks, benefits, and alternatives with patient/parents/legal guardian/POA. Questions invited. The patient/parents/legal guardian/POA seems to understand and agrees to proceed with anesthesia plan. Reviewed the physical assessment, medical history, allergy history and patient home medications list prior to surgery/procedure/anesthetic and documented any changes. Performed airway and anesthesia risk assessments. Anesthesia Type Anesthesia Type: General Anesthesia Focused Assessment* Airway Assessment Mouth opens: >3 cm Mallampati Score: II Focused Labs Anesthesia Preop lab: CBC WBC 6.5 K/mm3 (4.4-11.0) 07/08/24 10:20 07/08/24 RBC 5.16 M/mm3 (4.2-5.4) 07/08/24 10:20 07/08/24 Hgb 11.2 g/dL (12.0-15.0) L 07/08/24 10:20 07/08/24 Hct 37.3 % (37-47) 07/08/24 10:20 07/08/24 Plt Count 292 K/mm3 (150-450) 07/08/24 10:20 07/08/24 CHEMISTRY Potassium 4.2 mmol/L (3.5-5.1) 07/08/24 10:20 07/08/24 Sodium 140 mmol/L (136-145) 07/08/24 10:20 07/08/24 BUN 12 mg/dL (7-18) 07/08/24 10:20 07/08/24 Creatinine 0.64 mg/dL (0.55-1.02) 07/08/24 10:20 07/08/24 Glucose 95 mg/dL (74-106) 07/08/24 10:20 07/08/24 COAG Urine Test Negative Negative 08/13/24 09:45 08/13/24 Pre-Assessment Diagnosis/Proposed Procedure Planned Operative Procedure(s): RE-EXCISION BREAST MASS LEFT Anesthesia History Anesthesia History - senior telecommunications 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 When Was Last Pacemaker Check QUESTION #4 FULL TEXT: You/Your Family Experience fever (hyperthermia) with Anesthesia Last Oral Intake Last Oral intake: Last Oral Intake NPO since Meds taken in AM with sips of water? Meds patient instructed to take am of surgery PONV PONV - senior telecommunications engineer: PONV - senior telecommunications engineer Female Yes 08/28/24 14:49 HX of Motion Sickness Yes 08/28/24 14:49 HX of N/V After Surgery No 08/28/24 14:49 Non-Smoker Yes 08/28/24 14:49 Duration of Surgery greater No 08/28/24 14:49 than 60 minutes Number of Risk Factors 3 08/28/24 14:49 PONV Score Moderate Risk 08/28/24 14:49 Height & Weight Height & Weight: Anesthesia: Height & Weight Height 5 ft 9 in 08/26/24 14:33 Respiratory Assessment Respiratory Assessment - senior telecommunications engineer: Respiratory Tract Infection Hx - senior telecommunications engineer Hx Respiratory Tract Infection No 08/28/24 14:49 STOP Sleep Apnea STOP Sleep Apnea - senior telecommunications engineer: STOP Sleep Apnea - senior telecommunications engineer Hx Hypertension No 08/28/24 14:49 Hx Sleep Apnea No 08/28/24 14:49 CPAP BIPAP Do you snore loudly (louder No 08/28/24 14:49 than talking or can be heard Do you often feel tired/ No 08/28/24 14:49 fatigued/ sleepy during daytime? Has anyone observed you stop No 08/28/24 14:49 breathing during sleep? STOP Results Negative 08/28/24 14:49 QUESTION #5 FULL TEXT : Do you snore loudly (louder than talking or can be heard through closed doors)? Tobacco Use History Tobacco Use History - senior telecommunications engineer: Tobacco Use History - senior telecommunications engineer Tobacco Use Smoking Status Never smoker 08/28/24 14:49 Hx Tobacco Use No 08/28/24 14:49 Years Smoking Packs Smoked per Day Smoking Cessation Date was within the last 15 years Hx Smoking Cessation Date Hx Smoking Cessation Counseling Hematologic Medial History Hematologic Hx - senior telecommunications engineer: Hematologic Medical Hx - biomass technician Hx of Blood Transfusion No 08/28/24 14:49 Hx of Transfusion in last 3 No 08/28/24 14:49 Months Date of Last Transfusion (if within last 3 months) Ever experience any problems No 08/28/24 14:49 with transfusion(s)? Specify any problems Hx of Preganancy in last 3 No 08/28/24 14:49 Months Nurse Filling Out Transfusion DSCHRIBER 08/28/24 14:49 & Questions: Date: 08/28/24 08/28/24 14:49 Time: 14:50 08/28/24 14:49 Patient unable to answer at this time (ie. confused, unrespo /Reproduction History /Reproductive History - senior telecommunications engineer: /Reproductive Hx- senior telecommunications engineer Hx Now Gestational Age (in weeks): EDC: Hx Hx Para Hx Section SAB No 08/28/24 14:49 PFSH Medical History Wears glasses Low iron Restless leg syndrome History of migraine Non-smoker Iron deficiency anemia due to chronic blood loss Breast cancer Abnormal mammogram of left breast Home Medications ?Medication ?Instructions ?Recorded ?Last Taken ?Type ferrous fumarate 325 mg (106 mg 325 mg PO QDAY 07/09/24 Unknown History iron) tablet ascorbic acid (vitamin C) 500 mg 500 mg PO DAILY 08/01/24 Unknown History tablet (C-500) cholecalciferol (vitamin D3) 25 25 mcg PO DAILY 08/01/24 Unknown History mcg (1,000 unit) capsule (Vitamin D3) Allergy/AdvReac Type Severity Reaction Status Date / Time No Known Allergies Allergy Verified 08/26/24 14:35 Family History Mother CVA (cerebral vascular accident) Surgical History Status post left breast lumpectomy History of Social History Smoking Status: Never smoker alcohol intake: never substance use type: does not use Review of Systems (Anesthesia) ROS Narrative System reviewed and no additional complaints, except as documented.
[2024-09-11 10:25] LABS: Internal QC Validated? YES +Cl - CLEAR BKGD; Pregnancy, Urine Negative Negative
[2024-09-11 10:26] LABS: Record Kit Lot#,Urine Preg 929381
[2024-09-11] MEDS: 0.9% Normal Saline (1000mL) 1,000 ML 15 ML IV (10:41)
--- NOTE | 2024-09-11 10:57 | PCM.HP.STD ---
HPI - General General Date of Admission: 09/11/24 Date of Service: 09/11/24 Chief Complaint: Breast cancer HPI Narrative STEPHANIE LIN, is a 48 F who presents for reexcision lumpectomy for wider margins. She was recently diagnosed with breast cancer. Lumpectomy was performed however pathology indicated DCIS to be very close to the lateral margin. She presents today for reexcision to ensure sufficient margins prior to beginning chemo and radiation [facility] Medical History Wears glasses Low iron Restless leg syndrome History of migraine Non-smoker Iron deficiency anemia due to chronic blood loss Breast cancer Abnormal mammogram of left breast Home Medications ?Medication ?Instructions ?Recorded ?Last Taken ?Type ferrous fumarate 325 mg (106 mg 325 mg PO QDAY 07/09/24 Unknown History iron) tablet ascorbic acid (vitamin C) 500 mg 500 mg PO DAILY 08/01/24 Unknown History tablet (C-500) cholecalciferol (vitamin D3) 25 25 mcg PO DAILY 08/01/24 Unknown History mcg (1,000 unit) capsule (Vitamin D3) Allergy/AdvReac Type Severity Reaction Status Date / Time No Known Allergies Allergy Verified 09/11/24 10:34 Family History Mother CVA (cerebral vascular accident) Surgical History Status post left breast lumpectomy History of Social History Smoking Status: Never smoker alcohol intake: never substance use type: does not use Vital Signs Vital Signs Vital Signs: 09/11/24 10:36 09/11/24 10:36 Temperature 98.1 F Temperature Source Temporal Pulse Rate 78 Respiratory Rate 18 Respiratory Pattern Normal Blood Pressure 146/81 H Blood Pressure Mean 102 Blood Pressure Source Monitor Blood Pressure Position Sitting Blood Pressure Location Right Arm Pulse Ox 100 Oxygen Delivery Method Room Air Weight Weight: 149 lb 14.629 oz Body Mass Index (BMI) 22.1 Physical Exam Const alert and oriented x3 Results Lab / Micro Data Labs: Laboratory Results - last 24 hr 09/11/24 10:10: Urine Test Negative Assessment & Plan Assessment/Plan (1) Breast cancer: QUALIFIERS: Breast location: unspecified site of breast Estrogen receptor status: positive Patient sex: female Laterality: left Qualified Code(s): C50.912 - Malignant neoplasm of unspecified site of left female breast; Z17.0 - Estrogen receptor positive status [ER+] PLAN: Plan The patient is a 48-year-old female with breast cancer. She presents today for reexcision of her lateral margin to ensure sufficient margins as DCIS was noted to be at or very close to this lateral margin. We discussed the details of the planned surgery in the office. She wishes to proceed. Surgery will take place today
--- NOTE | 2024-09-11 11:30 | BRBX_PTH ---
PATIENT: STEPHANIE LIN LOC: [facility] [place] U#:[id number] AGE/SX: 48/F ROOM: RE09/11/[address]: Dr. Gareth Mcdaniel MD : 1975 BED: DIS: 09/11/2024 SPEC #: [id number] RECD: 09/11/24 13:43 STATUS: CAMPOS REQ #: [id number] ROSITA: 09/11/24 11:[address]: Gareth Mcdaniel DEPT: SURGICAL PATHOLOGY RECD BY: Roberto Elise ENTERED: 09/11/24 13:43 SP TYPE: BREAST BX OTHR DR: TATE Genao Tissues: A - Left breast, NOS Procedures: Immunohistochemical Stains Surgery Specimen Level V IHC Stain ADDITIONAL HEADER OPERATION: Re-excision, breast mass or biopsy PRE-OP DIAGNOSIS: Breast cancer TISSUE SUBMITTED: A- New lateral margin, left breast * long - lateral, short - superior* Ischemic Time: 1 minute Fixation Time: 7 hours MICROSCOPIC DIAGNOSIS A. Left breast, new lateral margin, re-excision lateral margin: * Focal DCIS (ductal carcinoma in situ), 2 mm, greater than 2 mm from the nearest surgical margin (inferior aspect) - see note. * No invasive carcinoma seen. * Fibroadipose tissue with granulation tissue, foreign body giant cell reaction and fat necrosis, consistent with a previous surgical procedure. Note: IHC for SMM, CK5/6, and E-cadherin support the diagnosis. MICROSCOPIC DESCRIPTION Slides are reviewed. All matched controls reacted appropriately. These tests were developed and their performance characteristics determined by [facility]. They may not have been cleared or approved by the U.[place]. Food and Drug Administration. The FDA has determined that such clearance or approval is not necessary. The above immunohistochemical/dualISH markers are ordered and reviewed by the Pathologist. GROSS DESCRIPTION A. Received in formalin in a container labeled with the patient's name, date of , and new lateral margin; long = lateral, short = superior is an oriented, 11.8 g additional left lumpectomy specimen with stitches indicating margins. The specimen is 5.5 cm from anterior to posterior, 2.8 cm from superior to inferior, and 2.2 cm from medial to lateral. The old surgical resection margin exhibits [id number] possible fat necrosis. The new surgical resection margin is barber-yellow and lobulated. Ink jacobs: New lateral margin-greenSuperior aspect of new lateral margin-blueInferior aspect of new lateral margin-red The specimen is serially sectioned from anterior to posterior into 9 slices to reveal pale barber-yellow possible fat necrosis. The cut surfaces are comprised of approximately 80% barber-yellow adipose tissue and 20% white-pink, dense fibrous tissue. No distinct mass lesion is grossly recognized. The entire new surgical resection margin is submitted sequentially from anterior to posterior as follows: NOTE: Yellow ink does not indicate margin and is for orientation only.A1. Slices 1-2 (anterior)A2. Slice 3A3. Slice 4A4. Slice 5, bisected A5-6. Slice 6, bisected and inked yellow where sections connect A7. Slice 7, bisected and inked yellow where sections connectA 8. Slice 8, bisected and inked yellow resections connectA9. Slice 9 (posterior aspect) Total formalin fixation time: Between 6 and 72 hours. [facility] 09-11-2024 CPT:74274, 28274, [id number]
[2024-09-11] MEDS: Bupiv/Epi 0.25% 30 ML Vial (12:08)
[2024-09-11] MEDS: 0.9% Saline Lock 10 ML Syringe IV (12:09)
--- NOTE | 2024-09-11 12:23 | PCM.POST.ANE ---
Anesthesia: Postop Eval I Current Vital Signs Temperature: 97.7 F Pulse Rate: 106 Blood Pressure: 116/69 Respiratory Rate: 16 Pulse Ox: 100 Oxygen Delivery Method: Room Air Assessment Airway patent: Yes Spontaneous unlabored respirations: Yes Mental status: Awake and Calm nausea: No Vomiting: No Anesthesia Complication: No Fluid Hydration Crystalloid volume administer (ml): 800 Total IV fluid infused: 800 Progress Note Anesthesia document: Postop Eval 1 completed: Yes
--- NOTE | 2024-09-11 12:36 | EX.PCM.DISCH ---
Discharge Instructions Diet Discharge Diet: Light diet - advance as tolerated Activity Discharge Activity: Return to Normal Activity May shower in (days): 1 Ice area for (Minutes): 30 Dressing / Incision Call your doctor if your incision/area has: Continuous Slow Oozing, Sudden Increased Bleeding, Increased Pain/ Swelling, Increased Redness, Foul Smelling Discharge and Swelling at the incision site Call your doctor if you observe: Fever of 101 or Higher Cleanse incision/area with: Soap & Water Additional Dressing/Incision Instructions:: Remove gauze dressing prior to first shower. Wear supportive bra/sports bra Follow Up Care Please Follow Up With: Gareth Mcdaniel MD When: Approximately 2 weeks. Please call to schedule appointment Test Results: Test results from this visit will be discussed in further detail at your follow-up appointment, if applicable. Discharge Plan Admission Primary Reason for Your Visit: Left breast cancer Attending Provider: Gareth Mcdaniel Primary Care Provider: Keira Castillo Instructions Print Language: American Discharge Orders/Prescriptions Prescriptions: New oxycodone-acetaminophen [Percocet] 5-325 mg tablet 1 tab PO Q8H PRN (Reason: pain) 3 Days Qty: 9 0RF Continued ferrous fumarate 325 mg (106 mg iron) tablet 325 mg PO QDAY ascorbic acid (vitamin C) [C-500] 500 mg tablet 500 mg PO DAILY cholecalciferol (vitamin D3) [Vitamin D3] 25 mcg (1,000 unit) capsule 25 mcg PO DAILY Referrals / Follow Up: Keira Castillo PA [Primary Care Provider] - Disposition Disposition (needs filled in before D/C Order can be placed): Home, Self Care
--- NOTE | 2024-09-11 12:41 | OP.PCM_ITS ---
Problems Associated Problem List Diagnoses (1) Breast cancer: Procedures Integumentary [id number]: 10376 Partial mastectomy (With modifier 58) Operative Report (Standard) Operative Information Date of Procedure: 09/11/24 Pre-Operative Diagnosis: Left breast cancer Post-Operative Diagnosis: Left breast cancer Surgery/Procedure Performed: 1. Reexcision of left lateral breast margin 2. Flush Mediport with heparin chief information security officer: Yes Delivery Aide: Karen Richards Tasks completed by customer care assistant: Closing and Retracting Additional assistant spa director?: No Type of Anesthesia: Local and MAC RN Documented Start/Stop Times: Operation Date: 09/11/24 11:30 Case Time Into Pre-Op 09/11/24 10:34 Anesthesia Start 09/11/24 11:26 Into Room 09/11/24 11:26 Out of Pre-Op 09/11/24 11:26 Procedure Start 09/11/24 11:49 Procedure End 09/11/24 12:17 Anesthesia End 09/11/24 12:19 Out of Room 09/11/24 12:19 Into Recovery 09/11/24 12:21 Procedure Start Time: 11:49 Procedure Stop Time: 12:17 Select all DRAINS/GRAFTS/IMPLANTS that apply: None Estimated Blood Loss: 10 mL Specimen collected: Yes Description of specimen(s) removed: New left lateral breast margin. Long stitch marking the lateral aspect. Short stitch marking superior aspect Description of surgery: The patient is a 48-year-old female recently diagnosed with left breast cancer. A few weeks ago she underwent left breast lumpectomy. The margins of the invasive cancer were clear however there was a small area in the lateral margin that was considered close for DCIS. This was discussed with radiation oncology, and it was felt that reexcision to ensure excellent margins would be in the patient's best interest. This was offered to the patient and she wished to proceed. She also requested that her right-sided Mediport be flushed as this has not been flushed since it was installed in surgery about 3 to 4 weeks ago. She is not planning to be seen by oncology for another month. The patient was brought to the op room today following informed consent. She was placed supine on the operative table with arms outstretched on arm boards. Bilateral chest and neck regions were prepped and draped in the usual sterile manner. The reexcision lumpectomy was performed first. Residual skin glue was removed. Local anesthetic was infiltrated into the area. #15 blade was then used to make a skin incision through the previous incision. Seroma was then evacuated. This did not appear to be infected. The lateral margin was excised by developing a subdermal plane. This was then grasped with an Allis clamp and this was developed further. The posterior margin was down to the chest wall. There was really minimal if any significant anterior margin. The resultant lateral margin specimen was then oriented such that a long stitch was placed on the lateral aspect. This would be opposite to the seroma cavity. A short stitch was then placed on the anterior aspect of the new margin. Hemostasis was excellent. The wound was then copiously irrigated. Multiple small 5 mm clips were then placed for marking of the biopsy cavity. The wound was then closed using 3-0 Vicryl in the subdermal layer and then 4-0 Vicryl was run in the skin. Skin glue was applied as dressing. The right sided port was then flushed. In order to do so, a small opening was made in the drapes to expose the port. This was prepped underneath sterilely. The port was easily accessed. It sonam and flushed nicely with good blood return. 5 cc of heparin flush was then flushed through the catheter. The site was then dressed with a sterile OpSite. She was then awakened from anesthesia and taken to recovery in good condition. A GUNNER'S MATE was utilized as a plant attendant or assistant operator. Her role included skin retraction and assistance with skin closure Surgical Findings: See operative note Complications Complications: No Admit VTE Documentation VTE Present on Admission: No VTE Mechan Device Prophylaxis: SCD's VTE Pharm Prophylaxis ordered?: No Reason prophylaxis not ordered: Treatment Not Indicated
--- NOTE | 2024-09-11 14:32 | POSTOPAN2_ITS ---
Anesthesia Postop Eval I Sum Postop Eval Completion status Anesthesia document: Postop Eval 1 completed: Yes Anesthesia Postop Eval I Summary Anesthesia Postop Eval I Summary: Anesthesia Postop Eval I: Assessment Summary Airway patent Yes 09/11/24 12:24 FRONT DESK [email or web address] Spontaneous unlabored Yes 09/11/24 12:24 FRONT DESK [email or web address] respirations Mental status Awake,Calm 09/11/24 12:24 FRONT DESK MONITOR.[email or web address] nausea No 09/11/24 12:24 FRONT DESK MONITOR.[email or web address] Vomiting No 09/11/24 12:24 FRONT DESK [email or web address] Anesthesia Postop Eval I: Fluid Summary Crystalloid volume administer 800 09/11/24 12:24 FRONT DESK [email or web address] (ml) Colloids volume administered ( ml) Blood Product volume administered (ml) Total IV fluid infused 800 09/11/24 12:24 FRONT DESK [email or web address] Anesthesia Postop Eval I: Summary Notes Anesthesia Complication No 09/11/24 12:24 FRONT DESK [email or web address] Anesthesia Complication Comment: Post-operative progress note Anesthesia: Postop Eval II Evaluation Mental status: Awake Pain Level: 0 nausea: No Vomiting: No
--- NOTE | 2024-09-11 14:32 | PCM.POSTANE2 ---
Anesthesia Postop Eval I Sum Postop Eval Completion status Anesthesia document: Postop Eval 1 completed: Yes Anesthesia Postop Eval I Summary Anesthesia Postop Eval I Summary: Anesthesia Postop Eval I: Assessment Summary Airway patent Yes 09/11/24 12:24 PRODUCT [email or web address] Spontaneous unlabored Yes 09/11/24 12:24 PRODUCT [email or web address] respirations Mental status Awake,Calm 09/11/24 12:24 PRODUCT DEVELOPMENT.[email or web address] nausea No 09/11/24 12:24 PRODUCT DEVELOPMENT.[email or web address] Vomiting No 09/11/24 12:24 PRODUCT [email or web address] Anesthesia Postop Eval I: Fluid Summary Crystalloid volume administer 800 09/11/24 12:24 PRODUCT [email or web address] (ml) Colloids volume administered ( ml) Blood Product volume administered (ml) Total IV fluid infused 800 09/11/24 12:24 PRODUCT [email or web address] Anesthesia Postop Eval I: Summary Notes Anesthesia Complication No 09/11/24 12:24 PRODUCT [email or web address] Anesthesia Complication Comment: Post-operative progress note Anesthesia: Postop Eval II Evaluation Mental status: Awake Pain Level: 0 nausea: No Vomiting: No
== END 2024-09-11 14:16 | disposition home or self-care (01) ==
LOC: SDC 09:51 → AC 10:05
PROVIDERS: Anesthesiology; Referring Provider Surgery; Visit Provider Surgery
PROC: (CPT 19301; principal; 2024-09-11 11:15)
DX: C50.912 Malignant neoplasm of unspecified site of left female breast (principal); Z17.0 Estrogen receptor positive status [ER+]
CPT/HCPCS: 19301; 00404; 81025; 88305; 88307; 88341; 88342; A4648; A4216

== ENCOUNTER 2024-09-26 09:49 | Outpatient (CLI) | payer OTHER, SELFPAY ==
--- NOTE | 2024-09-26 09:55 | ECHODONC_ITS ---
Reason For Study Reason For Study: ANTINERPLASTIC CHEMO Procedure This was a 2D Doppler, Color Flow transthoracic echocardiogram. Myocardial strain analysis was performed in this exam to aid in the assessment of cardiac function. Exam performed in department. Left Ventricle Normal left ventricle. The global longitudinal strain = -18.4 % (normal). The left ventricular ejection fraction is 60 %. No regional wall motion abnormalities noted. Right Ventricle Normal RV size. Normal systolic function. Atria Normal left atrium. Normal right atrium. Mitral Valve Normal mitral valve. Tricuspid Valve Normal tricuspid valve. Aortic Valve Trisinus/trileaflet aortic valve. Pulmonic Valve Normal pulmonic valve. Great Vessels Normal aortic root. The pulmonary artery is normal size. Inferior vena cava collapse with respiration. Pericardium/Pleural No pericardial effusion. MMode/2D Measurements & Calculations LVIDd: 5.2 cm IVSd: 0.95 cm LVOT diam: 2.0 cm LVIDs: 3.5 cm LVPWd: 0.89 cm LVOT area: 3.2 cm2 RVDd: 3.2 cm FS: 33.0 % Ao root diam: 3.2 cm LAV(MOD-sp4): 26.3 ml LVAd ap4: 24.8 cm2 LVLd ap4: 7.4 cm EDV(MOD-sp4): 69.0 ml EDV(sp4-el): 70.6 ml LVAs ap4: 13.6 cm2 LVLs ap4: 6.0 cm ESV(MOD-sp4): 26.6 ml ESV(sp4-el): 25.9 ml EF(MOD-sp4): 61.5 % EF(sp4-el): 63.3 % SV(MOD-sp4): 42.4 ml SV(sp4-el): 44.7 ml LA A4 area: 12.0 cm2 SI(MOD-sp4): 23.1 ml/m2 LA dimension(2D): 2.9 cm RA A4 area: 11.3 cm2 Time Measurements MV dec time: 0.17 sec Doppler Measurements & Calculations MV E max jonathan: 69.7 cm/sec Lat Peak E' Jonathan: 17.2 cm/sec Med Peak E' Jonathan: 15.8 cm/sec MV A max jonathan: 63.6 cm/sec E/E' lat: 4.0 E/E' med: 4.4 MV E/A: 1.1 MV V2 max: 80.4 cm/sec Ao V2 max: 118.5 cm/sec MV max P.6 mmHg MV dec slope: 422.8 cm/sec2 Ao max P.6 mmHg MV V2 mean: 51.5 cm/sec Ao V2 mean: 84.0 cm/sec MV mean P.2 mmHg Ao mean P.2 mmHg MV V2 VTI: 33.7 cm Ao V2 VTI: 27.9 cm AV (velocity ratio): 0.93 MVA(VTI): 2.5 cm2 PATO(I,D): 3.0 cm2 PATO(V,D): 3.2 cm2 LV V1 max: 116.0 cm/sec SV(LVOT): 83.5 ml PA V2 max: 91.4 cm/sec LV V1 max P.4 mmHg PA V2 mean: 71.7 cm/sec LV V1 mean P.8 mmHg LV V1 mean: 77.3 cm/sec LV V1 VTI: 25.9 cm ECHO/ONC Echo Complete Interpretation Summary Normal left ventricle. The global longitudinal strain = -18.4 % (normal). The left ventricular ejection fraction is 60 %. Structurally normal valves. Ordering Physician: Bandar Stubbs Referring Physician: Bandar Stubbs Performed By: Paula Pavon RCS
== END 2024-09-26 23:59 | disposition home or self-care (01) ==
LOC: CVS 09:52
PROVIDERS: Referring Provider Internal Medicine Hematology & Oncology; Visit Provider Internal Medicine Hematology & Oncology
DX: C50.912 Malignant neoplasm of unspecified site of left female breast (principal)
CPT/HCPCS: 93306; 93356

== ENCOUNTER → 2024-10-09 | Outpatient (CLI) | payer OTHER, SELFPAY ==
--- NOTE | 2024-10-09 09:12 | US_ITS ---
PROCEDURE: PELVIC W/ TRANSVAGINAL 10/09/2024 REASON FOR EXAM: CYST. History of left breast cancer. She had a prior lumpectomy. 1st day of last menstrual period was 10/04/2024. 3 para 3. TECHNIQUE: Transabdominal pelvic ultrasound COMPARISON: PET-CT exam dated 10/02/2024 FINDINGS: Measurements: Uterus: 10.1 x 5.8 x 4.4 cm. The uterus is anteverted. Nabothian cysts are seen. Endometrial Thickness: 6 mm. The endometrial stripe is hyperechoic. Right Ovary: The right ovary was only appreciated on the transabdominal images. Right ovary measures 2.2 x 1.8 x 1.4 cm. Contour and echogenicity are within thin normal limits. Left Ovary: The left ovary was best visualized on the endovaginal pelvic study. The left ovary measures 7.2 x 6.0 x 4.8 cm. There is a cyst identified involving the left ovary measuring 6.2 x 5.8 x 4.2 cm. The borders of the cyst has echogenic foci along it. Other: There is no fluid in the cul-de-sac. The urinary bladder measures 4.0 x 3.1 x 7.1 cm. Urinary bladder volume is 46 mL. US/Pelvic w/ Transvaginal IMPRESSION: 1. The uterus is anteverted. 2. Nabothian cyst. 3. Left ovarian cyst which has echogenic foci along portions of the border. RECOMMENDATION: Follow-up pelvic ultrasound in 6 weeks for re-evaluation of the left ovarian cy st. Reading Location: [id number]
== END | disposition home or self-care (01) ==
PROVIDERS: Referring Provider Internal Medicine Hematology & Oncology; Visit Provider Internal Medicine Hematology & Oncology
DX: N83.209 Unspecified ovarian cyst, unspecified side (principal)
CPT/HCPCS: 76830; 76856

== ENCOUNTER → 2024-12-20 | Outpatient (CLI) | payer OTHER, SELFPAY ==
--- NOTE | 2024-12-20 08:31 | US_ITS ---
EXAM: US Abdomen Limited, Right Upper Quadrant CLINICAL INDICATION: TRANSAMINITIS TECHNIQUE: Real-time ultrasound of the right upper quadrant with image documentation. COMPARISON: No relevant prior studies available. FINDINGS: LIVER: The liver measures up to 6.0 cm. No intrahepatic bile duct dilation. GALLBLADDER: Negative Spence's sign was reported by the escalator installer. 0.5 cm gallbladder polyp. Gallbladder sludge. No gallstones. COMMON BILE DUCT: Unremarkable as visualized. No stones. No dilation. Common bile duct measures 0.31 cm in diameter. PANCREAS: Probable fatty pancreas. RIGHT KIDNEY: Unremarkable. No stones. No hydronephrosis. The right kidney measures 11.1 x 6.2 x 4.0 cm. US/Abdomen Limited IMPRESSION: Gallbladder polyp and sludge. Reading [facility]
== END | disposition home or self-care (01) ==
LOC: US 08:30
PROVIDERS: Referring Provider Nurse Practitioner Family; Visit Provider Nurse Practitioner Family
DX: R74.01 Elevation of levels of liver transaminase levels (principal); C50.912 Malignant neoplasm of unspecified site of left female breast; Z17.0 Estrogen receptor positive status [ER+]
CPT/HCPCS: 76705

== ENCOUNTER → 2024-12-23 | Outpatient (CLI) | payer OTHER, SELFPAY ==
--- NOTE | 2024-12-23 12:20 | US_ITS ---
EXAM: US Pelvis Transabdominal and Transvaginal, Complete CLINICAL INDICATION: OVARIAN CYST TECHNIQUE: Real-time complete transabdominal and transvaginal pelvic ultrasound with image documentation. Transvaginal imaging was used for better evaluation of the endometrium and adnexa. COMPARISON: US Pelvis Transabdominal Endovaginal dated 10/09/2024 FINDINGS: UTERUS/CERVIX: 1.3 cm uterine fibroid. The uterus measures 7.9 x 5.0 x 4.3 cm. The endometrial stripe measures 0.29 cm in thickness. RIGHT OVARY: Unremarkable. Normal blood flow. The right ovary measures 1.7 x 1.5 x 1.4 cm. LEFT OVARY: 7.0 left ovarian cyst containing debris and possible peripheral calculi. Normal blood flow. The left ovary measures 7.7 x 7.3 x 5.8 cm. FREE FLUID: No free fluid. BLADDER: Unremarkable as visualized. Wall is normal thickness for degree of distention. US/Pelvic w/ Transvaginal IMPRESSION: 7.0 left ovarian cyst containing debris and possible peripheral calculi. No si gnificant change from the prior exam. Reading Location[facility]
== END | disposition home or self-care (01) ==
PROVIDERS: Referring Provider Obstetrics & Gynecology; Visit Provider Obstetrics & Gynecology
DX: N83.209 Unspecified ovarian cyst, unspecified side (principal)
CPT/HCPCS: 76830; 76856

== ENCOUNTER → 2025-03-18 | Outpatient (CLI) | payer OTHER, SELFPAY ==
--- NOTE | 2025-03-18 09:53 | BD_ITS ---
PROCEDURE: DEXA BONE DENSITY STUDY 03/18/2025 REASON FOR EXAM: SCREENING F, age 49 y/o . Postmenopausal. TECHNIQUE: Procedure Code: BDDBD Modality: DX Procedure: DEXA BONE DENSITY STUDY COMPARISON: None FINDINGS: BMD and T-SCORES Lumbar spine: 1.035 g/cm2, T-score 0.5 Levels: L1 through L4 Left femoral neck: 0.866 g/cm2, T-score 0.2 Femoral neck comparison data not recommended for monitoring change. Left total hip: 1.025 g/cm2, T-score 0.7 Right femoral neck: 0.946 g/cm2, T-score 0.9 Femoral neck comparison data not recommended for monitoring change. Right total hip: 1.053 g/cm2, T-score 0.9 The World Health Organization has defined the following categories based on bone density: Normal bone density: T-score equal to or greater than -1.0 Osteopenia: T-score between -1.0 and -2.5 Osteoporosis: T-score equal to or less than -2.5 FRAX (or Comparable) Fracture Risk Assessment: 10 Year Probability of Fracture: Major Osteoporotic Fracture: 3.4% Hip Fracture: 0.1% (Note: FRAX is not to be reported in setting of normal range bone density, osteoporosis on DEXA, known history of osteoporosis, prior osteoporotic hip or vertebral fracture, or for any patient undergoing pharmacological treatment for bone loss.) The National Osteoporosis Foundation (NOF) recommends pharmacological treatment for patients with a FRAX 10-year risk of 3% or higher for a hip fracture, or 20% or higher for a major osteoporotic fracture, to prevent osteoporosis and reduce fracture risk. The patient does not meet the pharmacological treatment recommendations for prevention of osteoporosis. BD/Dexa Bone Density Study IMPRESSION: NORMAL T-SCORES. Recommend follow-up as clinically warranted. Reading Location: [place] [id number]
== END | disposition home or self-care (01) ==
LOC: OPBD 09:50
PROVIDERS: Referring Provider Internal Medicine Hematology & Oncology; Visit Provider Internal Medicine Hematology & Oncology
DX: Z78.0 Asymptomatic menopausal state (principal)
CPT/HCPCS: 77080

== ENCOUNTER 2025-05-02 06:28 | Day surgery (SDC) | payer OTHER, SELFPAY ==
--- NOTE | 2025-04-21 07:12 | EKG12_ITS ---
Test Reason : PREOP Blood Pressure : */* mmHG Vent. Rate : 62 BPM Atrial Rate : 62 BPM P-R Int : 146 ms QRS Dur : 72 ms QT Int : 380 ms P-R-T Axes : 73 80 44 degrees QTcB Int : 385 ms Normal sinus rhythm Normal ECG No previous ECGs available Confirmed by VICKIE SYED, DAT ([id number]), publishing editor ISABELLA OLIVARES ([id number]) on 04/21/2025 10:58:53 AM Referred By: Jennifer Gallego Confirmed By: DAT JOHNSTON MD
[2025-04-21 08:04] LABS: Hematocrit 42.4 % (37-47); Hemoglobin 14.1 g/dL (12.0-15.0); Mean Corp Hgb Conc 33.3 g/dL (32-36); Mean Corpuscular Volume 84.8 fL (81-99); Mean Platelet Vol. 9.4 fl (6.2-12.0); Platelet Count 168 K/mm3 (150-450); RBC Distribution Width CV 12.6 % (11.6-14.6); RBC Distribution Width SD 38.8 fl (35.1-43.9); Red Blood Count 5.00 M/mm3 (4.2-5.4); White Blood Count 3.3 K/mm3 (4.4-11.0)
[2025-04-21 08:38] LABS: Anion Gap 10 (5-15); BUN 12 mg/dL (4-19); BUN/Creat Ratio 19.7 RATIO (10-20); Calcium,Total 10.2 mg/dL (7.6-11.0); Carbon Dioxide 28.0 mmol/L (21.0-32.0); Chloride 106 mmol/L (98-108); Glucose 98 mg/dL (70-99); Potassium 4.1 mmol/L (3.3-5.1)
--- NOTE | 2025-04-22 16:58 | PAT.ANESEVAL ---
Pre-Assessment Diagnosis/Proposed Procedure Planned Operative Procedure(s): (B) Laparoscopic, Salpingo-oopherectomy Anesthesia History Anesthesia History - account manager education: Anesthesia History - account manager education Hx Hospitalization No 04/18/25 10:52 Any Problems With Anesthesia No 04/18/25 10:52 Cholinesterase deficiency No 04/18/25 10:52 You/Your Family Experience No 04/18/25 10:52 fever (hyperthermia) with Relationship Recent Exposure to Contagious No 09/11/24 10:36 Disease Does patient have nerve No 04/18/25 10:52 stimulator Patient instructed to have device shut off --Does patient have Pacemaker or ICD? When Was Last Pacemaker Check QUESTION #4 FULL TEXT: You/Your Family Experience fever (hyperthermia) with Anesthesia Last Oral Intake Last Oral intake: Last Oral Intake NPO since Meds taken in AM with sips of water? Meds patient instructed to take am of surgery PONV PONV - account manager education: PONV - account manager education Female Yes 04/18/25 10:52 HX of Motion Sickness Yes 04/18/25 10:52 HX of N/V After Surgery No 04/18/25 10:52 Non-Smoker Yes 04/18/25 10:52 Duration of Surgery greater Yes 04/18/25 10:52 than 60 minutes Number of Risk Factors 4 04/18/25 10:52 PONV Score Severe Risk 04/18/25 10:52 Height & Weight Height & Weight: Anesthesia: Height & Weight Height 5 ft 9 in 03/05/25 09:46 Respiratory Assessment Respiratory Assessment - account manager education: Respiratory Tract Infection Hx - account manager education Hx Respiratory Tract Infection No 04/18/25 10:52 STOP Sleep Apnea STOP Sleep Apnea - account manager education: STOP Sleep Apnea - account manager education Hx Hypertension No 04/18/25 10:52 Hx Sleep Apnea No 04/18/25 10:52 CPAP BIPAP Do you snore loudly (louder No 04/18/25 10:52 than talking or can be heard Do you often feel tired/ No 04/18/25 10:52 fatigued/ sleepy during daytime? Has anyone observed you stop No 04/18/25 10:52 breathing during sleep? STOP Results Negative 04/18/25 10:52 QUESTION #5 FULL TEXT : Do you snore loudly (louder than talking or can be heard through closed doors)? 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 Specify any problems Hx of Preganancy in last 3 No 04/18/25 10:52 Months Nurse Filling Out Transfusion JZOLLINGE 04/18/25 10:52 & Questions: Date: 04/18/25 04/18/25 10:52 Time: 10:54 04/18/25 10:52 Patient unable to answer at this time (ie. confused, unrespo /Reproduction History /Reproductive History - account manager education: /Reproductive Hx- account manager education Hx Now No 04/18/25 10:52 Gestational Age (in weeks): EDC: Hx Hx Para Hx Section SAB No 04/18/25 10:52 Does the father of the baby or his family experience fever w Father of the baby Malignant Hypertension history comment [facility] Medical History (Updated 04/18/25 @ 10:52 by Lori Capps) Transaminitis Regional lymph node metastasis present Encounter for chemotherapy management Well woman exam Ovarian cyst Encounter for education Wears glasses Low iron Restless leg syndrome History of migraine Non-smoker Iron deficiency anemia due to chronic blood loss Breast cancer Abnormal mammogram of left breast Home Medications ?Medication ?Instructions ?Recorded ?Last Taken ?Type ascorbic acid (vitamin C) 500 mg 500 mg PO DAILY 08/01/24 Unknown History tablet (C-500) cholecalciferol (vitamin D3) 25 25 mcg PO DAILY 08/01/24 Unknown History mcg (1,000 unit) capsule (Vitamin D3) trazodone 50 mg tablet 50 mg PO QHS insomnia #30 tabs 04/09/25 Unknown Rx Allergy/AdvReac Type Severity Reaction Status Date / Time No Known Allergies Allergy Verified 04/18/25 10:48 Family History Mother CVA (cerebral vascular accident) Surgical History Status post left breast lumpectomy History of Social History household members: spouse and children number of children: 3 current occupational status: employed current occupation: [email or web address] Smoking Status: Never smoker alcohol intake: never substance use type: does not use seatbelt use: always do you feel safe at home: Yes additional social history: - [place] Audit: Pertinent Findings Pertinent Findings EKG Perinent findings: EKG 04/21/2025. Normal sinus rhythm Echo (EF%) pertinent findings: Echo 09/26/2024. Normal left ventricle. The left ventricular ejection fraction is 60%. Structurally normal valves. Recommendation Anesthesia Recommendation Anesthesia recommendation: OPTIMIZED for anesthesia
[2025-05-02] VITALS (11 sets, daily range): BP systolic 107–123; BP diastolic 54–67; PULSE 84–100; RESP 16–18; TEMP 36.1–36.8; O2SAT 93–100; BMI 23.4
--- OUTSIDE RECORDS SUMMARY | 2025-05-02 06:33 | XMS RPT_ITS | CCD ---
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 Name Role Phone Harvey SYED, Danielito Rodriguez Unavailable Harvey SYED, Danielito Rodriguez Unavailable Luis Angel Claudio MD Unavailable Yolanda KERNS, Korin Bain Unavailable Katia TRANSMISSION TESTER, Gisela Unavailable Vess TRANSMISSION TESTER, Fartun L Unavailable Unavailable Ale ROSE, Brynn Willis Unavailable Unavailable Elayne TRANSMISSION TESTER, Lili Peralta Unavailable Unavailab joselyn Paiz TRANSMISSION TESTER, Debra Unavailable Unavailabl e Stan KERNS, Uma J Unavailable Blas RSOE, Korin Watson Unavailable Unavaila malik Troncoso TRANSMISSION TESTER, Yara Unavailable Unavailable Shawn TRANSMISSION TESTER, Ellie Unavailable Unavailable Veronica KERNS, Romelia J Unavailable Barton TRANSMISSION TESTER, Cathi Unavailable Unavailable Gabino TRANSMISSION TESTER, Shell Unavailable Unavailabl e Unavailable Unavailable General Surgery Provider Unavailable Unavail able LUIS ANGEL CLAUDIO Consulting Unavailable VERONICA, ROMELIA PAC Attending Unavailable MARTIN, ROMELIA PAC Primary Care Unavailable MARTIN, ROMELIA PAC Admitting Unavailable PROVIDER, UNKNOWN Consulting Unavailable PROVIDER, UNKNOWN Consulting Unavailable PROVIDER, UNKNOWN Consulting Unavailable ROSENDO Attending Unavailable Violeta SYED, Dr. Gareth Watson Attending Provider Romelia Cobian Primary Care Provider Romelia Cobian Referring Provider Dr. Gareth Mcdaniel MD Referring Provider Dr. Florina Hall MD Attending Provider Enoc SYED, Dr. Portillo Attending Provider Enoc SYED, Dr. Portillo Referring Provider Dr. Wellington Moctezuma DO Attending Provider Dr. Wellington Moctezuma DO Referring Provider Dr. Angel Bernardo MD Attending Provider Dr. Gareth Mcdaniel MD Other Provider Martin PA, Romelia Primary Care Provider Martin PA, Romelia Referring Provider Violeta SYED, Dr. Gareth Watson Attending Provider Lucas SYED, Dr. Garcia Attending Provider Verna DIRECTOR PHARMACEUTICAL-C, Alyssa Attending Provider Verna DIRECTOR PHARMACEUTICAL-C, Alyssa Other Provider Verna DIRECTOR PHARMACEUTICAL-C, Alyssa Other Provider Martin PA, Romelia Primary Care Provider Dr. Wellington Moctezuma DO Attending Provider Martin PA, Romelia Referring Provider Dr. Gareth Mcdaniel MD Attending Provider Violeta SYED, Dr. Gareth Watson Referring Provider Enoc SYED, Dr. Portillo Attending Provider Dr. Bandar Stubbs MD Referring Provider Verna DIRECTOR PHARMACEUTICAL-C, Alyssa Other Provider Martin PA, Romelia Primary Care Provider Martin PA, Romelia Referring Provider Violeta SYED, Dr. Gareth Watson Attending Provider Verna DIRECTOR PHARMACEUTICAL-C, Alyssa Other Provider Martin PA, Romelia Primary Care Provider Az SYED, Dr. Ortiz Attending Provider Martin PA, Romelia Referring Provider Verna DIRECTOR PHARMACEUTICAL-C, Alyssa Other Provider Martin PA, Romelia Primary Care Provider Violeta SYED, Dr. Gareth Watson Attending Provider Violeta SYED, Dr. Gareth Watson Referring Provider Violeta SYED, Dr. Gareth Watson Other Provider Verna DIRECTOR PHARMACEUTICAL-C, Alyssa Other Provider Julián SYED, Dr. Rodriguez Attending Provider [phone] Martin PA, Romelia Primary Care Provider Martin PA, Romelia Referring Provider Violeta SYED, Dr. Gareth Watson Attending Provider Verna DIRECTOR PHARMACEUTICAL-C, Alyssa Other Provider Martin PA, Romelia Primary Care Provider Martin PA, Romelia Referring Provider Enoc SYED, Dr. Portillo Attending Provider Verna DIRECTOR PHARMACEUTICAL-C, Alyssa Referring Provider Julián SYED, Dr. Rodriguez Referring Provider [phone] Verna DIRECTOR PHARMACEUTICAL-C, Alyssa Other Provider Dr. Leighton Mercado MD Attending Provider Verna DIRECTOR PHARMACEUTICAL-C, Alyssa Other Provider Rj Ta MD Unavailable Martin, Romelia Primary Care Provider Martin PA, Romelia Primary Care Provider Violeta SYED, Dr. Gareth Watson Attending Provider Verna DIRECTOR PHARMACEUTICAL-C, Alyssa Other Provider Unavailable Primary Care Provider Unavailabl e Martin PA, Romelia Primary Care Provider Enoc SYED, Dr. Portillo Attending Provider Enoc SYED, Dr. Portillo Referring Provider Martin PA, Romelia Referring Provider Verna DIRECTOR PHARMACEUTICAL-C, Alyssa Attending Provider Verna DIRECTOR PHARMACEUTICAL-C, Alyssa Other Provider Martin PA, Romelia Primary Care Provider Martin PA, Romelia Referring Provider Verna DIRECTOR PHARMACEUTICAL-C, Alyssa Attending Provider Enoc SYED, Dr. Portillo Attending Provider Verna DIRECTOR PHARMACEUTICAL-C, Alyssa Other Provider Enoc SYED, Dr. Portillo Referring Provider [facility] Attending Unavailable JENNIFER DUENAS Referring Unavailable Martin PA, Romelia Primary Care Physician Martin PA, Romelia Referring Provider Verna DIRECTOR PHARMACEUTICAL-C, Alyssa Attending Physician Enoc SYED, Dr. Portillo Attending Physician Dr. Jennifer Duenas MD Attending Physician Dr. Leighton Mercado MD Attending Physician Verna DIRECTOR PHARMACEUTICAL-C, Alyssa Nurse Practitioner Dr. Wellington Moctezuma DO Attending Physician Martin PA, Romelia Primary Care Physician Martin PA, Romelia Referring Provider Verna DIRECTOR PHARMACEUTICAL-C, Alyssa Attending Physician Martin PA, Romelia Primary Care Physician Martin PA, Romelia Referring Provider Verna DIRECTOR PHARMACEUTICAL-C, Alyssa Attending Physician Verna DIRECTOR PHARMACEUTICAL-C, Alyssa Nurse Practitioner Enoc SYED, Dr. Portillo Referring Provider [phone] Martin, Romelia Primary Care Unavailable Martin, Romelia Referring Unavailable Verna DIRECTOR PHARMACEUTICAL, Alyssa Attending Unavailable Martin, Romelia Primary Care Unavailable Bandar Stubbs Referring Unavailable Bandar Stubbs Attending Unavailable Martin, Romelia Primary Care Unavailable Jennifer Duenas Admitting Unavailable Jennifer Duenas Attending Unavailable Wellington Moctezuma Referring Unavailable Martin, Romelia Primary Care Unavailable Wellington Moctezuma Attending Unavailable WanekGareth Referring Unavailable WanekGareth Attending Unavailable Martin, Romelia Primary Care Unavailable Martin, Romelia Primary Care Unavailable IsckarBandar schmidt Attending Unavailable Martin, Romelia Referring Unavailable Martin, Romelia Primary Care Unavailable Verna DIRECTOR PHARMACEUTICAL, Alyssa Attending Unavailable Martin, Romelia Referring Unavailable Verna DIRECTOR PHARMACEUTICAL, Alyssa Attending Unavailable Martin, Romelia Primary Care Unavailable Verna DIRECTOR PHARMACEUTICAL, Alyssa Referring Unavailable Martin, Romelia Referring Unavailable Martin, Romelia Primary Care Unavailable Florina Hall Attending Unavailable Martin, Romelia Referring Unavailable Martin, Romelia Primary Care Unavailable Angel Bernardo Attending Unavailable RhiannaWellington jones Attending Unavailable Martin, Romelia Primary Care Unavailable Martin, Romelia Referring Unavailable WanekGareth Attending Unavailable Martin, Romelia Primary Care Unavailable Martin, Romelia Referring Unavailable Martin, Romelia Primary Care Unavailable Verna DIRECTOR PHARMACEUTICAL, Alyssa Attending Unavailable Wellington Moctezuma Attending Unavailable Martin, Romelia Primary Care Unavailable Martin, Romelia Referring Unavailable WanGareth jeronimo Referring Unavailable Gareth Mcdaniel Consulting Unavailable WanGareth jeronimo Attending Unavailable Martin, Romelia Primary Care Unavailable Wellington Moctezuma Referring Unavailable Wellington Moctezuma Attending Unavailable Martin, Romelia Primary Care Unavailable Jose Zavala Attending Unavailable Martin, Romelia Primary Care Unavailable Bandar Stubbs Attending Unavailable RishabhkarBandar schmidt Referring Unavailable Martin, Romelia Primary Care Unavailable Wellington Moctezuma Attending Unavailable Martin, Romelia Primary Care Unavailable Wellington Moctezuma Attending Unavailable Martin, Romelia Primary Care Unavailable Martin, Romelia Referring Unavailable Martin, Romelia Primary Care Unavailable Bandar Stubbs Attending Unavailable Martin, Romelia Referring Unavailable WanekGareth Referring Unavailable WanKen jeronimoen A Attending Unavailable Martin, Romelia Primary Care Unavailable Wellington Moctezuma Referring Unavailable Martin, Romelia Primary Care Unavailable Wellington Moctezuma Attending Unavailable Wellington Moctezuma Referring Unavailable Wellington Moctezuma Attending Unavailable Martin, Romelia Primary Care Unavailable Gareth Mcdaniel Attending Unavailable Martin, Romelia Referring Unavailable Martin, Romelia Primary Care Unavailable Martin, Romelia Referring Unavailable Martin, Romelia Primary Care Unavailable Verna DIRECTOR PHARMACEUTICAL, Alyssa Attending Unavailable Martin, Romelia Referring Unavailable Martin, Romelia Primary Care Unavailable Verna DIRECTOR PHARMACEUTICAL, Alyssa Attending Unavailable Martin, Romelia Referring Unavailable Martin, Romelia Primary Care Unavailable Verna DIRECTOR PHARMACEUTICAL, Alyssa Attending Unavailable Martin, Romelia Referring Unavailable Martin, Romelia Primary Care Unavailable Verna DIRECTOR PHARMACEUTICAL, Alyssa Attending Unavailable Gareth Mcdaniel Consulting Unavailable Martin, Romelia Primary Care Unavailable Gareth Mcdaniel Referring Unavailable Angel Bernardo Attending Unavailable Martin, Romelia Attending Unavailable Martin, Romelia Primary Care Unavailable Martin, Romelia Primary Care Unavailable RoniusBandar Referring Unavailable IsckarusBandar Attending Unavailable MarcanthonyJennifer Referring Unavailable MarcanthonyJennifer Attending Unavailable Martin, Romelia Primary Care Unavailable Gareth Mcdaniel Attending Unavailable Martin, Romelia Primary Care Unavailable Martin, Romelia Referring Unavailable Martin, Romelia Primary Care Unavailable Verna DIRECTOR PHARMACEUTICAL, Alyssa Attending Unavailable Wellington Moctezuma Attending Unavailable Martin, Romelia Referring Unavailable Martin, Romelia Primary Care Unavailable Gareth Mcdaniel Attending Unavailable Martin, Romelia Referring Unavailable Martin, Romelia Primary Care Unavailable Martin, Romelia Referring Unavailable IsckarusBandar Attending Unavailable Martin, Romelia Primary Care Unavailable Gareth Mcdaniel Attending Unavailable Martin, Romelia Primary Care Unavailable Martin, Romelia Referring Unavailable Wellington Moctezuma Attending Unavailable Martin, Romelia Primary Care Unavailable Martin, Romelia Referring Unavailable Martin, Romelia Referring Unavailable Martin, Romelia Primary Care Unavailable Verna DIRECTOR PHARMACEUTICAL, Alyssa Attending Unavailable Martin, Romelia Primary Care Unavailable Wellington Moctezuma Attending Unavailable Martin, Romelia Primary Care Unavailable Wellington Moctezuma Attending Unavailable WanGareth jeronimo Attending Unavailable Martin, Romelia Primary Care Unavailable Wanek, Gareth A Referring Unavailable Wanek, Gareth Watson Consulting Unavailable Wanek, Gareth Watson Attending Unavailable Martin, Romelia Primary Care Unavailable Verna DIRECTOR PHARMACEUTICAL, Alyssa Attending Unavailable Martin, Roemlia Referring Unavailable Martin, Romelia Primary Care Unavailable Martin, Romelia Primary Care Unavailable Leighton Mercado Attending Unavailable Martin, Romelia Referring Unavailable MarcanthonyJennifer Admitting Unavailable Marcanthsharon, Jennifer Attending Unavailable Martin, Romelia Primary Care Unavailable Wanek, Gareth A Referring Unavailable Wanek, Gareth A Attending Unavailable Martin, Romelia Primary Care Unavailable Verna DIRECTOR PHARMACEUTICAL, Alyssa Consulting Unavailable Isckarus, Bandar Attending Unavailable Isckarus, Bandar Referring Unavailable Martin, Romelia Primary Care Unavailable Wanek, Gareth A Attending Unavailable Martin, Romelia Referring Unavailable Martin, Romelia Primary Care Unavailable Wanek, Gareth A Referring Unavailable Martin, Romelia Primary Care Unavailable Isckarus, Bandar Attending Unavailable Marcanthony, Jennifer Attending Unavailable Martin, Romelia Referring Unavailable Martin, Romelia Primary Care Unavailable Isckarus, Bandar Attending Unavailable Martin, Romelia Referring Unavailable Martin, Romelia Primary Care Unavailable Rhianna, Wellington Attending Unavailable Amrtin, Romelia Primary Care Unavailable Martin, Romelia Primary Care Unavailable Marcanthony, Jennifer Attending Unavailable Martin, Romelia Referring Unavailable Martin, Romelia Primary Care Unavailable Rhianna, Wellington Attending Unavailable Martin, Romelia Referring Unavailable Martin, Romelia Primary Care Unavailable RhiannaWellington jones Attending Unavailable Isckarus, Bandar Attending Unavailable Isckarus, Arletteour Referring Unavailable Martin, Romelia Primary Care Unavailable Rhianna, Wellington Referring Unavailable Rhianna, Wellington Attending Unavailable Martin, Romelia Primary Care Unavailable Martin PA, Romelia Primary Care Physician Martin PA, Romelia Referring Provider Verna DIRECTOR PHARMACEUTICAL-C, Alyssa Attending Physician Verna DIRECTOR PHARMACEUTICAL-C, Alyssa Referring Provider Julián SYED, Dr. Rodriguez Attending Physician Dr. Jennifer Duenas MD Referring Provider Dr. Leighton Mercado MD Attending Physician Dr. Bandar Stubbs MD Attending Physician Dr. Wellington Moctezuma DO Attending Physician Dr. Wellington Moctezuma DO Referring Provider Dr. Bandar Stubbs MD Referring Provider Verna DIRECTOR PHARMACEUTICAL-C, Alyssa Nurse Practitioner Medications Current Medications Medication Drug Class(es) Dates Sig (Normalized) Sig (Original) ascorbic acid 500 mg oral tablet (20 sources) Vitamin C Start: 08-01-2024 take 1 tablet by mouth once daily take 500 mg by mouth once daily ascorbic acid (VITAMIN C) 250 mg chew Take 500 mg by mouth once daily. Active cholecalciferol 0.025 mg oral capsule (20 sources) Vitamin D Start: 08-01-2024 take 1 capsule by mouth once daily dexamethasone 4 mg oral tablet (20 sources) Corticosteroid Start: 09-26-2024 End: 04-02-2025 Dexamethasone 4 mg tablet Discontinued 8 mg PO .COMPLEX 14 0 November 07, 2024 9:08am April 02, 2025 8:53am Malignant neoplasm of breast Malignant neoplasm of unspecified site of left female breast Estrogen receptor positive status [ER+] 8 mg orally ONLY on days 2-3 of chemotherapy cycle ergocalciferol, vitamin D2, (VITAMIN D2 PO) (1 source) ergocalciferol, vitamin D2, (VITAMIN D2 PO) Take by mouth. Active lidocaine 25 mg/ml / prilocaine 25 mg/ml topical cream (20 sources) Antiarrhythmic, Amide Local Anesthetic Start: 09-26-2024 End: 04-09-2025 Lidocaine-Prilocai ne 2.5-2.5 % cream Discontinued 1 NMA TOPICAL ONCE as needed for port access 30 30 2 September 25, 2024 11:00pm April 09, 2025 8:55am Malignant neoplasm of breast Malignant neoplasm of unspecified site of left female breast Estrogen receptor positive status [ER+] omeprazole 20 mg delayed release oral capsule (20 sources) Proton Pump Inhibitor Start: 11-21-2024 End: 04-02-2025 take 1 capsule by mouth twice daily Omeprazole Magnesium (Acid Metal Rolling Mill Operator (Omeprazole)) 20 mg capsule,delayed release(DR/EC) Discontinued 20 mg PO TWICE A DAY November 20, 2024 11:00pm April 02, 2025 8:53am Start: 12-17-2018 End: 02-19-2021 take 1 capsule by mouth once daily Omeprazole 20 MG Oral Capsule Delayed Release ; 1 (one) Capsule Capsule qd for 0 days Quantity: 30 {Capsule} Refills: 5 Ordered: 19-Feb-2021 LAURA Montalvo Start: 17-Dec-2018 End: 19-Feb-2021 Status: Inactive ondansetron 8 mg disintegrating oral tablet (20 sources) Serotonin-3 Receptor Antagonist Start: 09-26-2024 End: 04-02-2025 take 1 tablet by mouth every eight hours as needed for nausea and vomiting Ondansetron 8 mg tablet,disintegrating Discontinued 8 mg PO Q8H as needed for nausea and vomiting 30 September 25, 2024 11:00pm April 02, 2025 8:53am Malignant neoplasm of breast Malignant neoplasm of unspecified site of left female breast Estrogen receptor positive status [ER+] prochlorperazine 10 mg oral tablet (20 sources) Phenothiazine Start: 09-26-2024 End: 04-02-2025 take 1 tablet by mouth every six hours as needed for nausea and vomiting Prochlorperazine Maleate 10 mg tablet Discontinued 10 mg PO EVERY 6 HOURS as needed for nausea and vomiting 30 September 25, 2024 11:00pm April 02, 2025 8:53am Malignant neoplasm of breast Malignant neoplasm of unspecified site of left female breast Estrogen receptor positive status [ER+] traZODone hydrochloride 50 mg oral tablet (1 source) Serotonin Reuptake Inhibitor Start: 04-09-2025 take 1 tablet by mouth at bedtime Start: 04-09-2025 take 1 tablet by mouth at bedt jerald Completed/Discontinued Medications Medication Drug Class(es) Dates Sig (Normalized) Sig (Original) acetaminophen 325 mg / HYDROcodone bitartrate 5 mg oral tablet (20 sources) Opioid Agonist Start: 08-13-2024 End: 08-20-2024 Hydrocodone-Acetam inophen 5-325 mg tablet Discontinued 1 {tbl} PO Q8H as needed for pain 10 4 0 August 13, 2024 August 20, 2024 1:54pm Malignant neoplasm of breast Malignant neoplasm of unspecified site of left female breast Estrogen receptor positive status [ER+] acetaminophen 325 mg / oxyCODONE hydrochloride 5 mg oral tablet (20 sources) Opioid Agonist Start: 09-11-2024 End: 09-24-2024 Oxycodone-Acetamin ophen (Percocet) 5-325 mg tablet Discontinued 1 {tbl} PO Q8H as needed for pain 9 3 0 September 11, 2024 September 24, 2024 8:36am Malignant neoplasm of breast Malignant neoplasm of unspecified site of left female breast Estrogen receptor positive status [ER+] amoxicillin 875 mg / clavulanate 125 mg oral tablet (20 sources) Penicillin-class Antibacterial Start: 07-05-2022 End: 07-15-2022 take 1 tablet by mouth twice daily Amoxicillin-Pot Clavulanate 875-125 MG Oral Tablet ; 1 (one) Tablet two times daily for 10 days Quantity: 20 {Tablet} Refills: 0 Ordered: 05-Jul-2022 SAUMYA Martin Start: 05-Jul-2022 End: 15-Jul-2022 Status: Inactive Start: 07-02-2016 End: 07-12-2016 take 1 tablet by mouth twice daily at mealtime Augmentin 875-125 MG Oral Tablet ; 1 Tab two times daily for 10 days Quantity: 20 {Tablet} Refills: 0 Ordered: 02-Jul-2016 MD Danielito Gabriel Start: 02-Jul-2016 End: 12-Jul-2016 Status: Inactive Comments: Take with food Comment on above: Take with food azithromycin 250 mg oral tablet (20 sources) Macrolide Antimicrobial Start : 04-25 End: 01-15 ZITHROMAX Z-JE, 250MG (Oral Tablet) ; 2 (two) Tabs day one, then one daily for 4 days for 0 days Quantity: 1 {Z-pack} Refills: 0 Ordered: 15-Jan-2013 LAURA Paiz Start: 25-Apr-2012 End: 15-Jan-2013 Status: Inactive ciprofloxacin 500 mg oral tablet (20 sources) Quinolone Antimicrobial Start : 02-19 End: 03-17 take 1 tablet by mouth once daily Ciprofloxacin HCl 500 MG Oral Tablet ; 1 (one) Tablet daily for 0 days Quantity: 10 {Tablet} Refills: 0 Ordered: 17-Mar-2021 LAURA Barton Cathi Start: 19-Feb-2021 End: 17-Mar-2021 Status: Inactive cyclobenzaprine hydrochloride 5 mg oral tablet (20 sources) Muscle Relaxant Start : 02-19 End: 07-05 take 1 tablet by mouth every eight hours as needed for muscle spasms Cyclobenzaprine HCl 5 MG Oral Tablet ; 1 (one) Tablet q8hrs, prn spasm for 0 days Quantity: 10 {Tablet} Refills: 0 Ordered: 05-Jul-2022 LAURA Holly Lili Peralta Start: 19-Feb-2021 End: 05-Jul-2022 Status: Inactive famotidine 20 mg oral tablet (20 sources) Histamine-2 Receptor Antagonist take 1 tablet by mouth once daily Pepcid 20 MG Oral Tablet ; 1 daily (20 MG) Status: Inactive ferrous fumarate 325 mg oral tablet (20 sources) Start : 07-09 End: 12-04 take 1 tablet by mouth once daily Ferrous Fumarate 325 mg (106 mg iron) tablet Discontinued 325 mg PO daily July 09, 2024 12:00am December 04, 2024 8:22am ferrous sulfate 325 mg oral tablet (20 sources) take 1 tablet by mouth once daily Ferrous Sulfate 325 (65 Fe) MG Oral Tablet ; 1 daily (325 (65 Fe) MG) Status: Inactive fluconazole 150 mg oral tablet (20 sources) Azole Antifungal Start : 07-02 End: 07-03 Diflucan 150 MG Oral Tablet ; 1 Tablet single dose for 1 days Quantity: 1 {Tablet} Refills: 0 Ordered: 02-Jul-2016 MD Danielito Gabriel Start: 02-Jul-2016 End: 03-Jul-2016 Status: Inactive hydrocortisone acetate 25 mg rectal suppository (20 sources) Corticosteroid Start : 10-07 End: 07-02 Anusol-HC 25 MG Rectal Suppository ; 1 (one) Suppository two times daily for 6 days Quantity: 12 {Suppository} Refills: 2 Ordered: 02-Jul-2016 Start: 07-Oct-2013 End: 02-Jul-2016 Status: Inactive methylPREDNISolone 4 mg oral tablet (20 sources) Corticosteroid Start : 02-19 End: 03-17 take 1 tablet by mouth once methylPREDNISolone 4 MG Oral Tablet Therapy Pack ; 4 mg use as directed per instructions in pack for 0 days Quantity: 1 {Packet} Refills: 0 Ordered: 17-Mar-2021 LAURA Barton Start: 19-Feb-2021 End: 17-Mar-2021 Status: Inactive oseltamivir 75 mg oral capsule (20 sources) Neuraminidase Inhibitor Start : 08-06 End: 12-17 take 1 capsule by mouth twice daily Tamiflu 75 MG Oral Capsule ; 1 (one) Capsule two times daily for 0 days Quantity: 10 {Capsule} Refills: 0 Ordered: 17-Dec-2018 ROSE Odonnell Start: 06-Aug-2018 End: 17-Dec-2018 Status: Inactive 0.6 ml pegfilgrastim-cbqv 10 mg/ml prefilled syringe (19 sources) Leukocyte Growth Factor Start : 10-21 End: 12-19 inject 6 mg by subcutaneous injection every other week Pegfilgrastim-Cbqv (Udenyca) 6 mg/0.6 mL syringe Discontinued 6 mg SC .COMPLEX 0.6 7 October 20, 2024 11:00pm December 19, 2024 9:33am 6 mg subcutaneously Q14d; raNITIdine 150 mg oral tablet (20 sources) Histamine-2 Receptor Antagonist Start : 05-18 End: 01-15 take 1 tablet by mouth twice daily RANITIDINE HCL, 150MG (Oral Tablet) ; 1 (one) Tablet two times daily for 0 days Quantity: 60 {Tablet} Refills: 0 Ordered: 15-Jan-2013 LAURA Piaz Start: 18-May-2011 End: 15-Jan-2013 Status: Inactive rizatriptan 10 mg disintegrating oral tablet (20 sources) Serotonin-1b and Serotonin-1d Receptor Agonist Start : 10-21 End: 07-02 take 1 tablet by mouth every two hours Maxalt-DRESSMAKER OR TAILOR 10 MG Oral Tablet Dispersible ; 1 Tab Disp AT ONSET OF HEADACHE, MAY REPEAT AFTER 2 HRS for 0 days Quantity: 6 {Tablet} Refills: 3 Ordered: 02-Jul-2016 Start: 21-Oct-2013 End: 02-Jul-2016 Status: Inactive Comments: Don't exceed 30 mg/24 hours Comment on above: Don't exceed 30 mg/2 4 hours sucralfate 1000 mg oral tablet (20 sources) Aluminum Complex take 1 tablet by mouth four times daily before mealtime Carafate 1 GM Oral Tablet ; 1 four times daily before meals (1 GM) Status: Inactive Problems Active Problems Problem Classification Problem Date Documented Da te Episodic/Chronic Abdominal pain (20 sources) Abdominal pain, epigastric 05-18-2011 Episodic Cancer of breast (20 sources) Malignant neoplasm of unspecified site of left female breast; Translations: [Malignant neoplasm of breast (female), unspecified] Onset: 5 06-20-2024 Chronic Comment on above: ER VA positive, diag nosed Jun 2024 Deficiency and other anemia (20 sources) Iron deficiency anemia due to blood loss; Translations: [Iron deficiency anemia secondary to blood loss (chronic)] 07-08-2024 Chronic Deficiency and other anemia (1 source) Iron deficiency anemia secondary to blood loss (chronic); Translations: [Iron deficiency anemia secondary to blood loss (chronic)] Onset: Chronic Deficiency and other anemia (20 sources) Iron deficiency anemia; Translations: [Iron deficiency anemia, unspecified] 04-29-2019 Episodic Diseases of mouth; excluding dental (20 sources) Diseases of lips 02-20-2012 Episodic E Codes: Adverse effects of medical drugs (20 sources) Pneumococcal vaccine adverse reaction; Translations: [Adverse effect of other bacterial vaccines, initial encounter] 06-06-2024 Episodic Esophageal disorders (20 sources) Gastroesophageal reflux disease; Translations: [Gastro-esophageal reflux disease without esophagitis] 01-22-2019 Chronic Genitourinary symptoms and ill-defined conditions (20 sources) Dysuria; Translations: [Dysuria] 04-12-2010 Episodic Headache; including migraine (20 sources) Daily headache; Translations: [Headache] 10-07-2013 Episodic Hemorrhoids (20 sources) Hemorrhoids; Translations: [Unspecified hemorrhoids] 10-07-2013 Episodic Immunizations and screening for infectious disease (20 sources) Requires measles, mumps and rubella vaccination; Translations: [Encounter for immunization] 01-22-2019 Episodic Inflammatory diseases of female pelvic organs (20 sources) Vulvovaginitis; Translations: [Acute vaginitis] 04-12-2010 Episodic Influenza (20 sources) Influenza; Translations: [Influenza due to unidentified influenza virus with other respiratory manifestations] 08-06-2018 Episodic Intestinal infection (20 sources) Traveler's diarrhea; Translations: [Infectious gastroenteritis and colitis, unspecified] 06-06-2024 Episodic Maintenance chemotherapy; radiotherapy (20 sources) Patient encounter status; Translations: [Encounter for antineoplastic chemotherapy] Onset: 5 10-24-2024 Chronic Mycoses (20 sources) Mycosis; Translations: [Candidiasis, unspecified] 09-04-2014 Episodic Other aftercare (20 sources) Long-term (current) use of other medications 05-17-2010 Episodic Other gastrointestinal disorders (2 sources) Pelvic mass; Translations: [Intra-abdominal and pelvic swelling, mass and lump, unspecified site] Onset: 5 02-19-2025 Episodic Other hematologic conditions (20 sources) History of anemia; Translations: [Personal history of diseases of the blood and blood-forming organs and certain disorders involving the immune mechanism] 06-10-2024 Episodic Other liver diseases (20 sources) Enzyme level - finding; Translations: [Elevated transaminase measurement] 12-19-2024 Episodic Other screening for suspected conditions (not mental disorders or infectious disease) (20 sources) Patient encounter status; Translations: [Encounter for screening for lipoid disorders] 01-11-2019 Episodic Other upper respiratory infections (20 sources) Sinusitis; Translations: [Chronic sinusitis, unspecified] 06-06-2024 Chronic Other upper respiratory infections (20 sources) Upper respiratory infection; Translations: [Acute upper respiratory infection, unspecified] 03-17-2021 Episodic Ovarian cyst (20 sources) Cyst of ovary; Translations: [Unspecified ovarian cyst, unspecified side] Onset: 5 10-03-2024 Episodic Comment on above: repeat US ordered an d cea and ca 125. plan laparoscopic BSO Pneumonia (except that caused by tuberculosis or sexually transmitted disease) (20 sources) Pneumonia; Translations: [Pneumonia, unspecified organism] 01-15-2013 Episodic Residual codes; unclassified (2 sources) Estrogen receptor positive status [ER+]; Translations: [Estrogen receptor positive status [ER+]] Onset: 5 Episodic Residual codes; unclassified (1 source) Insomnia, unspecified; Translations: [Insomnia, unspecified] Onset: 5 Episodic Residual codes; unclassified (1 source) Asymptomatic menopausal state; Translations: [Asymptomatic menopausal state] Onset: 5 Episodic Residual codes; unclassified (2 sources) Insomnia; Translations: [Insomnia, unspecified] 04-09-2025 Episodic Comment on above: trazodone Secondary malignancies (20 sources) Regional lymph node metastasis present ; Translations: [Secondary and unspecified malignant neoplasm of lymph node, unspecified] 12-04-2024 Chronic Secondary malignancies (2 sources) Secondary and unspecified malignant neoplasm of lymph node, unspecified; Translations: [Secondary and unspecified malignant neoplasm of lymph node, unspecified] Onset: 5 Chronic Spondylosis; intervertebral disc disorders; other back problems (20 sources) Low back pain; Translations: [Lumbago] 06-06-2024 Episodic Unclassified (20 sources) deliveries 01-22-2019 Comment on above: 2. Unclassified (20 sources) Number of Children 01-22-2019 Comment on above: 3. Unclassified (20 sources) Number of Pregnancies 01-22-2019 Comment on above: 3. Unclassified (20 sources) Vaginal deliveries 01-22-2019 Comment on above: 1. Unclassified (20 sources) Follow up from hospital stay - Name of Hospital: [facility]. Date of Admission: 12/13/2018. Date of Discharge: 12/13/2018 (same day). The patient was hospitalized for chest pain and Anemia. New medications include Pepcid, Carafate, iron supplement. Patient did not have any consultations ordered while in the hospital. No post hospital therapies were ordered. Patient was discharged to home. Current Symptoms: no symptoms (did have burning pain of chest yesterday but none today). Note for Follow up from hospital stay: reviewed by [facility] 12-17-2018 Unclassified (20 sources) [ADDITIONAL REASON] Transition into care - The patient is transitioning into care from an emergency room ([facility] 12/13/2018) and a summary of care was reviewed. 12-17-2018 Unclassified (20 sources) Headache - The onset of the headache has been gradual and has been occurring in an intermittent pattern for 3 months. The course has been increasing in severity and increasing in frequency. The headache is characterized as moderate, a dull ache, tightness and a pressure sensation. The headache is experienced any time of the day (no diurnal variation) (pain can wake her up in the middle of the night). The headache is described as being located in the frontal area. The symptoms are aggravated by fatigue, but not by noise, bright light, reading, trauma or neck movement. The symptoms have been associated with insomnia and vertigo, while the symptoms have not been associated with blurring of vision, depression, ear pain, eye pain, fever, flashing lights, focal neurological deficit, head trauma, hypertension, migraine in the past, nasal discharge/stuffy nose, nausea, neck pain, neck stiffness, sore throat, tenderness over sinuses, unilateral numbness or vomiting. Note for Headache: duration of REED is also varaiable - can be present for a short time, or like last week, the REED came and was present all week 10-07-2013 Unclassified (12 sources) Transition into care - The patient is transitioning into care from an emergency room ([facility] 12/13/2018) and a summary of care was reviewed. 12-17-2018 Unclassified (12 sources) [ADDITIONAL REASON] Follow up from hospital stay - Name of Hospital: [facility]. Date of Admission: 12/13/2018. Date of Discharge: 12/13/2018 (same day). The patient was hospitalized for chest pain and Anemia. New medications include Pepcid, Carafate, iron supplement. Patient did not have any consultations ordered while in the hospital. No post hospital therapies were ordered. Patient was discharged to home. Current Symptoms: no symptoms (did have burning pain of chest yesterday but none today). Note for Follow up from hospital stay: reviewed by [facility] 12-17-2018 Unclassified (20 sources) Malignant neoplasm of breast; Translations: [C50.919 - Malignant neoplasm of unspecified site of unspecified female breast] Unclassified (8 sources) C50.912 - Malignant neoplasm of unspecified site of left female breast,Z17.0 - Estrogen receptor positive status [ER+] Unclassified (6 sources) C50.412 - Malignant neoplasm of upper-outer quadrant of left female breast,Z17.0 - Estrogen receptor positive status [ER+],C77.9 - Secondary and unspecified malignant neoplasm of lymph node, unspecified,C50.912 - Malignant neoplasm of unspecified site of left female breast Unclassified (1 source) Elevation of levels of liver transaminase levels; Translations: [Elevation of levels of liver transaminase levels] Onset: Unclassified (1 source) C50.412 - Malignant neoplasm of upper-outer quadrant of left female breast,Z17.0 - Estrogen receptor positive status [ER+],C77.9 - Secondary and unspecified malignant neoplasm of lymph node, unspecified Unclassified (1 source) C50.412 - Malignant neoplasm of upper-outer quadrant of left female breast,Z17.0 - Estrogen receptor positive status [ER+] Past or Other Problems Problem Classification Problem Date Documented Date Episodic/Chronic Nonmalignant breast conditions (20 sources) Lump in left breast; Translations: [Unspecified lump in the left breast, unspecified quadrant] Onset: 10-09-2024 06-06-2024 Episodic Unclassified (20 sources) Breast lump - The lump is on the left breast. The onset of the lump has been sudden and has been occurring in a persistent pattern for 1 week. The course has been constant. The lump is described as tender (at times). The lump is described as moderate. The first day of the last menstrual period was : (mid-May). Note for Breast lump: Patient denies any other changes to the breast. She denies any family history of breast cancer. She has never had a mammogram. 06-06-2024 Unclassified (20 sources) Cold Symptoms - Symptoms include sneezing, nasal congestion (Sinus drainage), runny nose, ear pain (left side), sore throat, hoarseness, dry cough, headache and facial pain, but do not include ear fullness, productive cough, wheezing, fever, chills or general malaise. The onset was sudden 2 week(s) ago. The symptoms occur constantly. The patient describes this as moderate in severity and worsening (worse over the past 3 days). Current treatment includes non-prescription cold medication. The patient has been exposed to an individual with similar symptoms (grandchildren). Patient denies history of seasonal allergies or recurrent sinusitis. 07-05-2022 Unclassified (20 sources) Cold Symptoms - Symptoms include nasal congestion, runny nose, ear fullness, sore throat, dry cough, general malaise (fatigue, but no body aches) and headache, but do not include sneezing, ear pain, hoarseness, productive cough, wheezing, fever, chills or facial pain. The onset was sudden 5 day(s) ago. The symptoms occur frequently. The patient describes this as moderate in severity and unchanged. Current treatment includes non-prescription cold medication. Risk factors do not include child in daycare or smoking. The patient has not been exposed to an individual with a cough, an individual with an upper respiratory infection, an individual with similar symptoms, an individual with strep or secondhand smoke. Medical history includes recurrent sinusitis, but patient denies history of seasonal allergies, recurrent strep pharyngitis, asthma, tonsillectomy or recurrent ear infections. Note for Upper respiratory infection: Last seen in our office for sinusitis in 2017.Patient is not currently vaccinated for COVID. 03-17-2021 Unclassified (20 sources) Back pain - The onset of the back pain has been sudden and has been occurring for 1 week. Note for Back pain: -Seeing Dr Garsia. Requesting meds due to travel tomorrow. [facility]. 02-19-2021 Unclassified (20 sources) Well Adult, female - The patient feels well with minor complaints (continues with fatigue. Is taking iron supplement), has decreased energy level and is sleeping well. The first day of the last menstrual period was : (12-24-18). The patient has a balanced diet and takes no supplemental vitamins & iron. The patient exercises weekly (classes at the gym twice a week.). The patient sleeps 6 hours per night. Note for Well Adult, female: reviewed by [facility] 01-22-2019 Unclassified (20 sources) Cold Symptoms - Symptoms include nasal congestion, runny nose, sore throat, hoarseness, dry cough, productive cough, fever, chills, general malaise and headache. The onset was sudden 1 day(s) ago. The symptoms occur constantly. The patient describes this as moderate in severity and worsening. The patient is not currently being treated for this problem. Risk factors do not include smoking. The patient has been exposed to an individual with a cough and an individual with similar symptoms. Patient denies history of asthma. 08-06-2018 Unclassified (20 sources) Cold Symptoms - Symptoms include nasal congestion, runny nose, ear pain, ear fullness, sore throat, dry cough, general malaise, headache and facial pain. The onset was sudden 3 day(s) ago. The symptoms occur constantly. The patient describes this as moderate in severity and worsening. Current treatment includes non-prescription cold medication and an oral decongestant. Risk factors do not include smoking. The patient has not been exposed to an individual with similar symptoms or secondhand smoke. Patient denies history of seasonal allergies. Note for Upper respiratory infection: reviewed by [facility] 07-02-2016 Unclassified (20 sources) Cold Symptoms - Symptoms include nasal congestion, runny nose, purulent discharge, ear fullness, scratchy throat, productive cough, headache and facial pain, but do not include sneezing, ear pain, fever or general malaise. The onset was gradual 2 week(s) ago. The symptoms occur constantly. The patient describes this as moderate in severity and worsening. Current treatment includes non-prescription cold medication. Risk factors do not include smoking. The patient has been exposed to an individual with similar symptoms. Patient denies history of recurrent sinusitis, asthma or tonsillectomy. 08-25-2014 Unclassified (20 sources) pneumovax - Patient received a pneumovax vaccination yesterday in the office and is now having a reaction/irritation to it. On her left arm she has two streaks - going different directions, each from the area where the injection was given. It is raised above the skin, red, and warm. Appears blotchy. No fever, SOB, or nausea. Arm in general is sore (like with a flu shot) but no other symptoms. 02-14-2013 Unclassified (20 sources) Follow up consultation - The patient is here to follow-up after Emergency Room/Urgent Care (01/10/13 at [facility] for pneumonia. given Atb adn did xray showed right middle lobe infiltrate.). Current symptoms include cough. There is no family history of breast cancer, cardiovascular disease, cystic fibrosis or myocardial infarction before age 55. Note for Consultation follow-up: No previous hx of pneumonia. Pt is improving 01-15-2013 Unclassified (20 sources) Cold Symptoms - Symptoms include nasal congestion, runny nose, non-purulent sputum, sore throat, scratchy throat, dry cough, chills, general malaise, headache and facial pain, but do not include sneezing, ear pain, ear fullness or fever. The onset was gradual 3 day(s) ago. The symptoms occur constantly. The patient describes this as moderate in severity and worsening. Current treatment includes NSAIDs. Risk factors do not include smoking. The patient has been exposed to an individual with an upper respiratory infection and an individual with similar symptoms. Medical history includes recurrent sinusitis (once/year), but patient denies history of seasonal allergies, recurrent strep pharyngitis, asthma, tonsillectomy or recurrent ear infections. 04-25-2012 Unclassified (20 sources) dry lips - Pt c/o dry, flaky lips x 1 month. Pt c/o burning pain to lips. Pt has used vaseline, neomycin, blistex and an rx cream for impetigo (had this for one of the children) with no improvement. Pt has not eaten any new foods and does not know the cause of dryness. Denies any bumps or lesions initially. Says she does fairly good with her water intake. 02-20-2012 Unclassified (20 sources) Abdominal pain - The onset of the pain has been acute and has been occurring in an intermittent pattern for 5 days. The course has been recurrent. The pain is described as a moderate burning, sharp pain, dull ache and gnawing. The pain is located in the epigastrium and does not radiate. The symptoms are aggravated by meals (1/2 to 1 hour after eating) but are relieved by nothing (has tried tums without relief). The symptoms have been associated with nausea, while the symptoms have not been associated with bloating, bloody stools, constipation, dark urine, diarrhea, dysuria, fever, hematuria or vomiting. 05-18-2011 Unclassified (20 sources) Cold Symptoms - Symptoms include nasal congestion, runny nose, purulent discharge, ear fullness, sore throat, productive cough, fever, chills and general malaise, but do not include sneezing, ear pain or wheezing. The onset was gradual 2 week(s) ago. The symptoms occur constantly. The patient describes this as moderate in severity and worsening. Current treatment includes non-prescription cold medication (sudafed). Risk factors do not include smoking. The patient has been exposed to an individual with similar symptoms. Medical History dose not include seasonal allergies, recurrent sinusitis or asthma. 04-19-2011 Unclassified (20 sources) UTI - There is no known event that preceded symptom onset. Symptoms include dysuria, but do not include urinary frequency, urinary urgency, hematuria, flank pain, abdominal pain or back pain. The pain is located none (has a slight irritative feeling vaginal). There is no radiation. The patient describes the pain as burning. Onset was gradual 4 day(s) ago. The symptoms occur constantly. The patient describes this as moderate in severity and unchanged. Associated symptoms include vaginal discharge (there is also some increased vaginal discharge as well), but do not include fever, chills, nausea, urinary incontinence, urinary retention or nocturia. Risk factors do not include current or diaphragm use. Note for UTI: Denies risk of STD - monogamous with her ; no h/o STDs; not diabetic; burning is only when urine hits the vaginal skin, it doesn't burn to urinate 04-12-2010 Unclassified (1 source) Well adult female - Note for Well adult female: Last Mammogram 06/10/2024. Right breast normal. Ultrasound done on left breast that was abnormal, pt referred for biopsy. Patient was seen by Dr. Mcdaniel. 06-17-2024 Unclassified (20 sources) [ADDITIONAL REASON] Transition into care - The patient is transitioning into care from another physician ([facility] with Dr. Mcdaniel.) and a summary of care was reviewed. 06-17-2024 Unclassified (20 sources) Well adult female - The patient feels well with no complaints, has good energy level and is sleeping well. The first day of the last menstrual period was : (week of May 13 2024). The patient has a balanced diet and takes no supplemental vitamins & iron. The patient exercises weekly (cross fit 4 times a week). The patient sleeps 8 hours per night. Note for Well adult female: Last Mammogram 06/10/2024. Right breast normal. Ultrasound done on left breast that was abnormal, pt referred for biopsy. Patient was seen by Dr. Mcdaniel. She is currently waiting on the biopsy results.Patient is unsure of last pap, would like to get updated today.Patient has labs to be reviewed today.Patient is interested in colon cancer screening, but would like to finish workup of her breast lump before considering this. 06-17-2024 Unclassified (13 sources) Transition into care - The patient is transitioning into care from another physician ([facility] with Dr. Mcdaniel.) and a summary of care was reviewed. 06-17-2024 Unclassified (13 sources) [ADDITIONAL REASON] Well adult female - The patient feels well with no complaints, has good energy level and is sleeping well. The first day of the last menstrual period was : (week of May 13 2024). The patient has a balanced diet and takes no supplemental vitamins & iron. The patient exercises weekly (cross fit 4 times a week). The patient sleeps 8 hours per night. Note for Well adult female: Last Mammogram 06/10/2024. Right breast normal. Ultrasound done on left breast that was abnormal, pt referred for biopsy. Patient was seen by Dr. Mcdaniel. She is currently waiting on the biopsy results.Patient is unsure of last pap, would like to get updated today.Patient has labs to be reviewed today.Patient is interested in colon cancer screening, but would like to finish workup of her breast lump before considering this. 06-17-2024 Results Test Name Value Interpretation Reference Range Facility End of Treatment Summaryon 1 06-14-2024 End of Treatment Summary Normal [facility] Oncology Visit Reporton 04-05 Oncology Visit Report Normal [facility] Radiation Oncology Visiton 1 06-11-2024 Radiation Oncology Visit Normal [facility] Visit Reporton 04-09-2025 [facility] Visit Report Normal [facility] Radiation Oncology Visiton 1 06-09-2024 Radiation Oncology Visit Normal [facility] Radiation Oncology Visiton 1 Radiation Oncology Visit Normal [facility] Radiation Oncology Visiton 1 Radiation Oncology Visit Normal [facility] Radiation Oncology Visiton 1 Radiation Oncology Visit Normal [facility] Dexa Bone Density Studyon Dexa Bone Density Study Normal [facility] Radiation Oncology Visiton 1 Radiation Oncology Visit Normal [facility] Radiation Oncology Visiton 1 Radiation Oncology Visit Normal [facility] Absolute lymphocyte countOrd ered By: Bandar Stubbs on 02-20-2025 Lymphocytes Auto (Unsp spec) [#/Vol] 1.18 10*3/uL 0.83-4.51 [facility] Absolute neutrophil countOrd ered By: Bandar Stubbs on 02-20-2025 Neutrophils (Bld) [#/Vol] 3.6 10*3/uL 2.0-7.7 [facility] Automated lymphocyte count a s percentage of total leukocytesOrdered By: Bandar Keatingedwin on 02-20-2025 Lymphocytes/100 WBC Auto (Unsp spec) 21.5 % 19-41 [facility] Basophil percentageOrdered B y: Bandar Stubbs on 02-20-2025 Basophils/100 WBC (Bld) 0.7 % 0-1 [facility] CBC W/Diff, Automatedon 02-03 Absolute Lymph 1.18 X10 3/uL Normal 0.83-4.51 [facility] Comment on above: Performed By: #### L 100.0100 ####[facility] [address] [place], [address] Absolute Neut 3.6 X10 3/uL Normal 2.0-7.7 [facility] Comment on above: Performed By: #### L 100.0100 ####[facility] [address] [place], [address] Basophils/100 WBC (Bld) 0.7 % Normal 0-1 [facility] Comment on above: Performed By: #### L 100.0100 ####[facility] [address] [place], [address] Eosinophils/100 WBC (Bld) 2.0 % Normal 0-5 [facility] Comment on above: Performed By: #### L 100.0100 ####[facility] [address] [place], [address] Erythrocyte distribution width (RBC) [Ratio] 12.5 % Normal 11.6-14.6 [facility] Comment on above: Performed By: #### L 100.0100 ####[facility] [address] [place], [address] Hematocrit (Bld) [Volume fraction] 35.9 % Low 37-47 [facility] Comment on above: Performed By: #### L 100.0100 ####[facility] [address] [place], [address] Hemoglobin (Bld) [Mass/Vol] 12.4 g/dL Normal 12.0-15.0 [facility] Comment on above: Performed By: #### L 100.0100 ####[facility] [address] [place], [address] IG% 0.200 Normal 0.0-0.9 [facility] Comment on above: Result Comment: IG% - Immature Granulocytes (promyelocytes, myelocytes andmetamyelocytes) > 1% indicates that a LEFT SHIFT is Present. Performed By: #### L 100.0100 ####[facility] [address] [place], [address] Lymphocytes/100 WBC (Bld) 21.5 % Normal 19-41 [facility] Comment on above: Performed By: #### L 100.0100 ####[facility] [address] [place], [address] MCH (RBC) [Entitic mass] 30.6 pg Normal 27.0-32.0 [facility] Comment on above: Performed By: #### L 100.0100 ####[facility] [address] [place], [address] MCHC (RBC) [Mass/Vol] 34.5 g/dL Normal 32-36 [facility] Comment on above: Performed By: #### L 100.0100 ####[facility] [address] [place], [address] MCV (RBC) [Entitic vol] 88.6 fL Normal 81-99 [facility] Comment on above: Performed By: #### L 100.0100 ####[facility] [address] [place], [address] Monocytes/100 WBC (Bld) 10.4 % High 0-10 [facility] Comment on above: Performed By: #### L 100.0100 ####[facility] [address] [place], [address] Neutrophils/100 WBC (Bld) 65.2 % Normal 47-70 [facility] Comment on above: Performed By: #### L 100.0100 ####[facility] [address] [place], [address] Nucleated RBC (Bld) [#/Vol] 0 10*3/uL Normal 0-5 [facility] Comment on above: Performed By: #### L 100.0100 ####[facility] [address] [place], [address] Platelet mean volume (Bld) [Entitic vol] 9.3 fL Normal 6.2-12.0 [facility] Comment on above: Performed By: #### L 100.0100 ####[facility] [address] [place], [address] Platelets (Bld) [#/Vol] 244 10*3/uL Normal 150-450 [facility] Comment on above: Performed By: #### L 100.0100 ####[facility] [address] [place], [address] RBC (Bld) [#/Vol] 4.05 10*6/uL Low 4.2-5.4 [facility] Comment on above: Performed By: #### L 100.0100 ####[facility] [address] [place], [address] RDW SD 40.5 fl Normal 35.1-43.9 [facility] Comment on above: Performed By: #### L 100.0100 ####[facility] [address] [place], [place], [address] WBC (Bld) [#/Vol] 5.5 10*3/uL Normal 4.4-11.0 [facility] Comment on above: Performed By: #### L 100.0100 ####[facility] [address] [place], [address] Eosinophil percentageOrdered By: [facility] Stubbs on 02-20-2025 Eosinophils/100 WBC (Bld) 2.0 % 0-5 [facility] Erythrocyte distribution wid th ratioOrdered By: [facility] on 02-20-2025 Erythrocyte distribution width (RBC) [Ratio] 12.5 % 11.6-14.6 [facility] Erythrocyte distribution wid th standard deviationOrdered By: [facility] on 02-20-2025 Erythrocyte distribution width (RBC) [Ratio] 40.5 fl 35.1-43.9 [facility] Hematocrit Auto (Bld) [Volum e fraction]Ordered By: [facility] on 02-20-2025 Hematocrit (Bld) [Volume fraction] 35.9 % Low 37-47 [facility] Hemoglobin measurementOrdere d By: [facility] Sutbbs on 02-20-2025 Hemoglobin (Bld) [Mass/Vol] 12.4 g/dL 12.0-15.0 [facility] Immature granulocytes/100 WB C Auto (Bld)Ordered By: [facility] on 02-20-2025 Immature granulocytes/100 WBC (Bld) 0.200 % 0.0-0.9 [facility] Comment on above: IG% - Immature Granu locytes (promyelocytes, myelocytes and metamyelocytes) > 1% indicates that a LEFT SHIFT is Present. MCV (mean corpuscular volume ) determinationOrdered By: Bandar Stubbs on 02-20-2025 MCV (RBC) [Entitic vol] 88.6 fL 81-99 [facility] Mean corpuscular hemoglobin (MCH) determinationOrdered By: [facility] on 02-20-2025 MCH (RBC) [Entitic mass] 30.6 pg 27.0-32.0 [facility] Mean corpuscular hemoglobin concentration (MCHC) determinationOrdered By: Bandar Stubbs on 02-20-2025 MCHC (RBC) [Mass/Vol] 34.5 g/dL 32-36 [facility] Mean platelet volume determi nationOrdered By: Bandar Stubbs on 02-20-2025 Platelet mean volume (Bld) [Entitic vol] 9.3 fL 6.2-12.0 [facility] Monocyte percentageOrdered B y: Bandar Stubbs on 02-20-2025 Monocytes/100 WBC (Bld) 10.4 % High 0-10 [facility] Neutrophil percentageOrdered By: Bandar Stubbs on 02-20-2025 Neutrophils/100 WBC (Bld) 65.2 % 47-70 [facility] Nucleated red blood cell per centageOrdered By: Bandar Stubbs on 02-20-2025 Nucleated RBC/100 WBC (Bld) [Ratio] 0 % 0-5 [facility] Oncology Visit Reporton 02-03 Oncology Visit Report Normal [facility] Platelet countOrdered By: Deven Stubbs on 02-20-2025 Platelets (Bld) [#/Vol] 244 10*3/uL 150-450 [facility] RBC Auto (Bld) [#/Vol]Ordere d By: Bandar Stubbs on 02-20-2025 RBC (Bld) [#/Vol] 4.05 10*6/uL Low 4.2-5.4 [facility] Radiation Oncology Visiton 0 02-20-2025 Radiation Oncology Visit Normal [facility] White blood cell (WBC) count Ordered By: Bandar Stubbs on 02-20-2025 WBC (Bld) [#/Vol] 5.5 10*3/uL 4.4-11.0 [facility] CNOVSPon 02-17-2025 CNOVSP Visit (SP) Office (AGGYNONAALIYAH) -- SUSAN LIN ([id number]) 1975 F Date Time Provider Department 02/17/25 2:00 PM NATACHA BIRMING[place]AM During your visit today, we recorded the following information about you: Temperature Pulse Blood pressure Weight 97.9 degrees 68/minute 122/76 73 kg Height 1.753 m Natacha Birmingham MD 02/19/2025 8:40 AM Signed Gynecologic Oncology Consultation Note [facility] Referring provider: Dr. Jennifer Duenas MD ([facility]) Chief complaint: Left adnexal mass HPI: This is a 49 year old patient with left breast cancer (ER/VA positive, her2 neg), HANNAH, h/o migraines, and restless leg syndrome referred for L adnexal mass. This adnexal mass was first identified on PET CT scan earlier this year - notable it was not PET avid - followed by 2 additional pelvic ultrasounds. Denies nausea, vomiting, changes in bowel or bladder function, bloating, abdominal pain, pelvic pain. No h/o hormone replacement. Initially planned for BSO with Dr. Duenas, last seen on 12/13/24, who rec'd BSO but was referred to [facility] for second opinion. Breast cancer was diagnosed in Jun 2024, ER+ VA+ HER2-. She had lumpectomy and sentinel node dissection with finding of positive nodes. Received 8 cycles of chemo: 4 AC dose-dense and 4 Taxol. Last dose 01/30/25, with plan for radiation. Oncology at [facility]. Dr. Suarez. ROS: 14 point ROS negative unless indicated in above HPI. Medical history: PAST MEDICAL HISTORY Diagnosis Date - Breast cancer, left (HCC) 06/2024 with regional lymph node metastasis - Iron deficiency anemia - Migraine - Restless leg syndrome Surgical history: PAST SURGICAL HISTORY Procedure Laterality Date - DELIVERY ONLY N/A 2007 - SECTION SINGLE N/A 1999 - LUMPECTOMY/RADIOTHERAPY DIAG MAMM/A10 Left 2024 Drag Down history: OB Hx: , [place] 1996 , [place] 1999 c/s, [place] 2007 c/s menarche at 14-14 menses - typically regular, heavy, lasting 5 days Family history: Family History Problem Relation Age of Onset - Stroke Mother - Breast Cancer No Family History - Ovarian cancer No Family History - Uterine Cancer No Family History - Colon Cancer No Family History Social history: SOCIAL HISTORY[1] Medications: Current Outpatient Medications Medication Sig Dispense Refill - ascorbic acid (VITAMIN C) 250 mg chew Take 500 mg by mouth once daily. - ergocalciferol, vitamin D2, (VITAMIN D2 PO) Take by mouth. No current facility-administered medications for this visit. Healthcare maintenance: not discussed today PE: EGOG PS 0 BP 122/76 (BP Site: Right Arm, BP Position: Sitting, BP Cuff Size: Extra Large Adult) Pulse 68 Temp 36.6 ?C (97.9 ?F) (Oral) Ht 175.3 cm (5' 9) Wt 73 kg (161 lb) LMP (LMP Unknown) SpO2 100% BMI 23.78 kg/m? Gen: Alert, comfortable. No acute distress. Card: Regular rate. Resp: Good effort and expansion. Abd: Nondistended. Extremity: No LE edema. Remainder of exam deferred Labs/Imaging: CEA 1.9 (12/19/24) [place] [address].7 (12/19/24) No images were personally reviewed because they were not available. US Pelvis TAB and TV on 12/27/24: Findings; UTERUS/CERVIX: 1.3 cm uterine fibroid. The uterus measures 7.9 x 6.0 x 4.3 cm. The endometrial stripe measures 0.29 cmm in thickness. RIGHT OVARY: Unremarkable. Normal blood flow. The right ovary measures 1.7 x 1.5 x 1.4 cm. LEFT OVARY: 7.0 left ovarian cyst containing debris and possible peripheral calculi. Normal blood flow. The left ovary measures 7.7 x 7.3 x 5.8 cm. FREE FLUID: No free fluid. BLADDER: Unremarkable as visualized. Wall is normal thickness for degree of distention. Impression: 7.0 left ovarian cyst containing debris and possible peripheral calculi. No significant change from the prior exam. PET/CT on 10/01/24 IMPRESSION: Peripheral hypermetabolic uptake along the left breast mass, greatest along the left lower and upper aspects. Recommend correlation with recent lumpectomy surgical margins and consideration of increased reexcision field. Hypermetabolic uptake involving the left level I axillary nodes. No hypermetabolic level II or III nodes visualized on PET-CT examination. Mild asymmetric hypermetabolic activity of the left breat parenchyma compared to the right, which may be due to inflammation from recent surgical excision. Ovarian cystic lesion within the lower pelvis without hypermetabolic activity and most compatible with ovarian cyst, however this is incompletely characterized by noncontrast examination. Pelvic ultrasound is recommended for further evaluation. A/P: This is a 49 year old patient here for consultation for a LEFT ADNEXAL MASS. Pelvic mass: - Discussed differential including benign, borderline, malignant, or metastatic tumors (more content not included)... Normal [facility] Absolute lymphocyte countOrd ered By: Bandar Stubbs on 01-30-2025 Lymphocytes Auto (Unsp spec) [#/Vol] 1.38 10*3/uL 0.83-4.51 [facility] Absolute neutrophil countOrd ered By: [facility] St[facility] on 01-30-2025 Neutrophils (Bld) [#/Vol] 3.5 10*3/uL 2.0-7.7 [facility] Anion gap in Serum or Plasma Ordered By: [facility] Stubbs on 01-30-2025 Anion gap [Moles/Vol] 9 mmol/L 5-15 [facility] Automated lymphocyte count a s percentage of total leukocytesOrdered By: Bandar Stubbs on 01-30-2025 Lymphocytes/100 WBC Auto (Unsp spec) 24.6 % 19-41 [facility] BUN/creatinine ratioOrdered By: [facility] Stub[facility] on 01-30-2025 Urea nitrogen/Creatinine [Mass ratio] 21.5 mg/mg High 10-20 [facility] Basophil percentageOrdered B y: [facility] St[facility] on 01-30-2025 Basophils/100 WBC (Bld) 0.7 % 0-1 [facility] Bilirubin, totalOrdered By: [facility] St[facility] on 01-30-2025 Bilirubin [Mass/Vol] 0.23 mg/dL 0.00-1.30 [facility] CBC W/Diff, Automatedon 01-04 REACTIVE LYMPH 2+ Normal [facility] Comment on above: Performed By: #### L 501.5200, L100.0100, L500.4050 ####[facility] [address] [place], [address] Carbon dioxide, total [Moles /volume] in Central venous bloodOrdered By: Bandar Stubbs on 01-30-2025 CO2 [Moles/Vol] 27.0 mmol/L 21.0-32.0 [facility] Chloride assayOrdered By: Deven Stubbs on 01-30-2025 Chloride [Moles/Vol] 105 mmol/L 98-108 [facility] Comprehensive Metabolic Prof ilon 01-30-2025 Albumin [Mass/Vol] 4.2 g/dL Normal 3.5-5.0 [facility] Comment on above: Performed By: #### L 501.5200, L100.0100, L500.4050 ####[facility] [address] [place], [address] Albumin/Globulin [Mass ratio] 1.7 {ratio} Normal 0.9-2.4 [facility] Comment on above: Performed By: #### L 501.5200, L100.0100, L500.4050 ####[facility] [address] [place], [address] ALK PHOS 114 U/L High 35-104 [facility] Comment on above: Performed By: #### L 501.5200, L100.0100, L500.4050 ####[facility] [address] [place], [address] ALT [Catalytic activity/Vol] 96 U/L High <=34 [facility] Comment on above: Performed By: #### L 501.5200, L100.0100, L500.4050 ####[facility] [address] [place], [address] AST [Catalytic activity/Vol] 51 U/L High <=31 [facility] Comment on above: Performed By: #### L 501.5200, L100.0100, L500.4050 ####[facility] [address] [place], [address] Bilirubin [Mass/Vol] 0.23 mg/dL Normal 0.00-1.30 [facility] Comment on above: Performed By: #### L 501.5200, L100.0100, L500.4050 ####[facility] [address] [place], [address] BUN/CRE 21.5 RATIO High 10-20 [facility] Comment on above: Performed By: #### L 501.5200, L100.0100, L500.4050 ####[facility] [address] [place], [address] Calcium [Mass/Vol] 9.4 mg/dL Normal 7.6-11.0 [facility] Comment on above: Performed By: #### L 501.5200, L100.0100, L500.4050 ####[facility] [address] [place], [address] Chloride [Moles/Vol] 105 mmol/L Normal 98-108 [facility] Comment on above: Performed By: #### L 501.5200, L100.0100, L500.4050 ####[facility] [address] [place], [address] CO2 [Moles/Vol] 27.0 mmol/L Normal 21.0-32.0 [facility] Comment on above: Performed By: #### L 501.5200, L100.0100, L500.4050 ####[facility] [address] [place], [address] Creatinine [Mass/Vol] 0.54 mg/dL Low 0.70-1.20 [facility] Comment on above: Performed By: #### L 501.5200, L100.0100, L500.4050 ####[facility] [address] [place], [address] ECRCL 130.25 ml/min Normal 50-250 [facility] Comment on above: Performed By: #### L 501.5200, L100.0100, L500.4050 ####[facility] [address] [place], [address] GAP 9 Normal 5-15 [facility] Comment on above: Performed By: #### L 501.5200, L100.0100, L500.4050 ####[facility] [address] [place], [address] GFR/1.73 sq M.predicted among non-blacks MDRD (S/P/Bld) [Vol rate/Area] 112 mL/min/{1.73_m2} Normal >60 [facility] Comment on above: Result Comment: mL/m in/1.73m2 CKD-EPI Creatinine Equation (2020) Performed By: #### L 501.5200, L100.0100, L500.4050 ####[facility] [address] [place], [address] Globulin (S) [Mass/Vol] 2.5 g/dL Normal 2.2-4.2 [facility] Comment on above: Performed By: #### L 501.5200, L100.0100, L500.4050 ####[facility] [address] [place], [address] Glucose [Mass/Vol] 79 mg/dL Normal 70-99 [facility] Comment on above: Performed By: #### L 501.5200, L100.0100, L500.4050 ####[facility] [address] [place], [address] Potassium [Moles/Vol] 4.0 mmol/L Normal 3.3-5.1 [facility] Comment on above: Performed By: #### L 501.5200, L100.0100, L500.4050 ####[facility] [address] [place], [address] Sodium [Moles/Vol] 141 mmol/L Normal 133-145 [facility] Comment on above: Performed By: #### L 501.5200, L100.0100, L500.4050 ####[facility] [address] [place], [address] T PROT 6.7 g/dL Normal 5.9-8.4 [facility] Comment on above: Performed By: #### L 501.5200, L100.0100, L500.4050 ####[facility] [address] [place], [address] Urea nitrogen [Mass/Vol] 12 mg/dL Normal 4-19 [facility] Comment on above: Performed By: #### L 501.5200, L100.0100, L500.4050 ####[facility] [address] [place], [address] Eosinophil percentageOrdered By: Bandar Stubbs on 01-30-2025 Eosinophils/100 WBC (Bld) 2.0 % 0-5 [facility] Erythrocyte distribution wid th ratioOrdered By: [facility] St[facility] on 01-30-2025 Erythrocyte distribution width (RBC) [Ratio] 12.4 % 11.6-14.6 [facility] Erythrocyte distribution wid th standard deviationOrdered By: [facility] Stubbs on 01-30-2025 Erythrocyte distribution width (RBC) [Ratio] 40.7 fl 35.1-43.9 [facility] Glomerular filtration rate ( GFR) estimation/1.73 sq m using serum, plasma, or whole bOrdered By: Bandar Stubbs on 01-30-2025 GFR/1.73 sq M.predicted among non-blacks MDRD (S/P/Bld) [Vol rate/Area] 112 mL/min/{1.73_m2} >60 [facility] Comment on above: mL/min/1.73m2 CKD-EP I Creatinine Equation (2020) Hematocrit Auto (Bld) [Volum e fraction]Ordered By: Bandar Stubbs on 01-30-2025 Hematocrit (Bld) [Volume fraction] 35.8 % Low 37-47 [facility] Hemoglobin measurementOrdere d By: Bandar Stubbs on 01-30-2025 Hemoglobin (Bld) [Mass/Vol] 12.0 g/dL 12.0-15.0 [facility] Immature granulocytes/100 WB C Auto (Bld)Ordered By: Bandar Stubbs on 01-30-2025 Immature granulocytes/100 WBC (Bld) 0.700 % 0.0-0.9 [facility] Comment on above: IG% - Immature Granu locytes (promyelocytes, myelocytes and metamyelocytes) > 1% indicates that a LEFT SHIFT is Present. Laboratory - Chemistry and C hemistry - challengeOrdered By: Bandar Stubbs on 01-30-2025 AST [Catalytic activity/Vol] 51 U/L High <32 [facility] MCV (mean corpuscular volume ) determinationOrdered By: Bandar Stubbs on 01-30-2025 MCV (RBC) [Entitic vol] 89.9 fL 81-99 [facility] Magnesiumon 01-30-2025 Magnesium [Mass/Vol] 2.0 mg/dL Normal 1.5-2.2 [facility] Comment on above: Performed By: #### L 501.5200, L100.0100, L500.4050 ####[facility] [address] [place], [address] Magnesium measurement (mass/ volume)Ordered By: Bandar Stubbs on 01-30-2025 Magnesium (Unsp spec) [Mass/Vol] 2.0 mg/dL 1.5-2.2 [facility] Mean corpuscular hemoglobin (MCH) determinationOrdered By: Bandar Stubbs on 01-30-2025 MCH (RBC) [Entitic mass] 30.2 pg 27.0-32.0 [facility] Mean corpuscular hemoglobin concentration (MCHC) determinationOrdered By: Bandar Stubbs on 01-30-2025 MCHC (RBC) [Mass/Vol] 33.5 g/dL 32-36 [facility] Mean platelet volume determi nationOrdered By: Bandar Stubbs on 01-30-2025 Platelet mean volume (Bld) [Entitic vol] 10.0 fL 6.2-12.0 [facility] Monocyte percentageOrdered B y: Bandar Stubbs on 01-30-2025 Monocytes/100 WBC (Bld) 8.8 % 0-10 [facility] Neutrophil percentageOrdered By: Bandar Stubbs on 01-30-2025 Neutrophils/100 WBC (Bld) 63.2 % 47-70 [facility] Nucleated red blood cell per centageOrdered By: Bandar Stubbs on 01-30-2025 Nucleated RBC/100 WBC (Bld) [Ratio] 0 % 0-5 [facility] Oncology Visit Reporton 01-04 Oncology Visit Report Normal [facility] Phosphoruson 01-30-2025 Phosphate [Mass/Vol] 3.8 mg/dL Normal 2.7-4.5 [facility] Comment on above: Performed By: #### L 501.2300 ####[facility] [address] [place], [place], [id number] Platelet countOrdered By: Deven Stubbs on 01-30-2025 Platelets (Bld) [#/Vol] 190 10*3/uL 150-450 [facility] Potassium measurement (mass/ volume)Ordered By: Bandar Stubbs on 01-30-2025 Potassium (Unsp spec) [Mass/Vol] 4.0 mmol/L 3.3-5.1 [facility] RBC Auto (Bld) [#/Vol]Ordere d By: Bandar Stubbs on 01-30-2025 RBC (Bld) [#/Vol] 3.98 10*6/uL Low 4.2-5.4 [facility] Serum creatinine measurement (mass/volume)Ordered By: Bandar Stubbs on 01-30-2025 Creatinine [Mass/Vol] 0.54 mg/dL Low 0.70-1.20 [facility] Serum globulin measurementOr dered By: Badnar Stubbs on 01-30-2025 Globulin (S) [Mass/Vol] 2.5 g/dL 2.2-4.2 [facility] Serum glucose measurement (m ass/volume)Ordered By: Bandar Stubbs on 01-30-2025 Glucose [Mass/Vol] 79 mg/dL 70-99 [facility] Serum or plasma alanine moreno otransferase (ALT) measurementOrdered By: Bandar Stubbs on 01-30-2025 ALT [Catalytic activity/Vol] 96 U/L High <35 [facility] Serum or plasma albumin laurie urement (mass/volume)Ordered By: Bandar Stubbs on 01-30-2025 Albumin [Mass/Vol] 4.2 g/dL 3.5-5.0 [facility] Serum or plasma albumin/glob ulin mass ratioOrdered By: Bandar Stubbs on 01-30-2025 Albumin/Globulin [Mass ratio] 1.7 {ratio} 0.9-2.4 [facility] Serum or plasma alkaline geoffrey sphatase measurementOrdered By: Bandar Stubbs on 01-30-2025 ALP [Catalytic activity/Vol] 114 U/L High 35-104 [facility] Serum or plasma calcium laurie urement (mass/volume)Ordered By: Bandar Stubbs on 01-30-2025 Calcium [Mass/Vol] 9.4 mg/dL 7.6-11.0 [facility] Serum or plasma urea nitroge n measurement (mass/volume)Ordered By: Bandar Stubbs on 01-30-2025 Urea nitrogen [Mass/Vol] 12 mg/dL 4-19 [facility] Sodium levelOrdered By: Arlette Stubbs on 01-30-2025 Sodium [Moles/Vol] 141 mmol/L 133-145 [facility] Total proteinOrdered By: Fabio Stubbs on 01-30-2025 Protein [Mass/Vol] 6.7 g/dL 5.9-8.4 [facility] White blood cell (WBC) count Ordered By: Bandar Stubbs on 01-30-2025 WBC (Bld) [#/Vol] 5.6 10*3/uL 4.4-11.0 [facility] CNPNon 01-28-2025 CNPN Telephone (AGGREID Rodríguez) -- RILEYSUSAN Jose ([id number]) 1975 F Date Time Provider Department 01/28[facility] During your visit today, we recorded the following information about you: Joselyn Yarbrough RN 01/28/2025 3:01 PM Signed Called Susan to review new patient appointment date and time. No answer, left detailed message informing her of 02/17 at 2:00 pm, appointment, and office address. Encouraged her to call with any questions or concerns. Joselyn Yarbrough RN Allergies As of Date: 01/28/2025 (Not on File) Date Reviewed: Never Reviewed Reason for Visit: Appointment [[id number]] Problem List As Of Date: 01/28/2025 (None) Encounter Status:Closed by JOSELYN YARBROUGH on 01/28/25 [facility] Absolute lymphocyte countOrd ered By: Bandar Stubbs on 01-16-2025 Lymphocytes Auto (Unsp spec) [#/Vol] 0.99 10*3/uL 0.83-4.51 [facility] Absolute neutrophil countOrd ered By: Bandar Stubbs on 01-16-2025 Neutrophils (Bld) [#/Vol] 4.3 10*3/uL 2.0-7.7 [facility] Anion gap in Serum or Plasma Ordered By: Bandar Stubbs on 01-16-2025 Anion gap [Moles/Vol] 10 mmol/L 5- [facility] BUN/creatinine ratioOrdered By: Bandar Stubbs on 01-16-2025 Urea nitrogen/Creatinine [Mass ratio] 19.2 mg/mg 10-20 [facility] Basophil percentageOrdered B y: Bandar Stubbs on 01-16-2025 Basophils/100 WBC (Bld) 0.8 % 0-1 [facility] Bilirubin, totalOrdered By: Bandar Keatingedwin on 01-16-2025 Bilirubin [Mass/Vol] 0.42 mg/dL 0.00-1.30 [facility] Blood platelets count (numbe r/volume)Ordered By: Bandar Enoc on 01-16-2025 Platelets (Bld) [#/Vol] 159 10*3/uL 150-450 [facility] CBC W/Diff, Automatedon 01-03 Absolute Lymph 0.99 X10 3/uL Normal 0.83-4.51 [facility] Comment on above: Performed By: #### L 100.0100, L501.5200, L500.4050 ####[facility] [address] [place], [address] Absolute Neut 4.3 X10 3/uL Normal 2.0-7.7 [facility] Comment on above: Performed By: #### L 100.0100, L501.5200, L500.4050 ####[facility] [address] [place], [address] Basophils/100 WBC (Bld) 0.8 % Normal 0-1 [facility] Comment on above: Performed By: #### L 100.0100, L501.5200, L500.4050 ####[facility] [address] [place], [address] Eosinophils/100 WBC (Bld) 2.0 % Normal 0-5 [facility] Comment on above: Performed By: #### L 100.0100, L501.5200, L500.4050 ####[facility] [address] [place], [address] IG% 0.800 Normal 0.0-0.9 [facility] Comment on above: Result Comment: IG% - Immature Granulocytes (promyelocytes, myelocytes andmetamyelocytes) > 1% indicates that a LEFT SHIFT is Present. Performed By: #### L 100.0100, L501.5200, L500.4050 ####[facility] [address] [place], [address] Monocytes/100 WBC (Bld) 7.3 % Normal 0-10 [facility] Comment on above: Performed By: #### L 100.0100, L501.5200, L500.4050 ####[facility] [address] [place], [address] Erythrocyte distribution width (RBC) [Ratio] 13.1 % Normal 11.6-14.6 [facility] Comment on above: Performed By: #### L 100.0100, L501.5200, L500.4050 ####[facility] [address] [place], [address] Hematocrit (Bld) [Volume fraction] 37.1 % Normal 37-47 [facility] Comment on above: Performed By: #### L 100.0100, L501.5200, L500.4050 ####[facility] [address] [place], [address] Hemoglobin (Bld) [Mass/Vol] 12.4 g/dL Normal 12.0-15.0 [facility] Comment on above: Performed By: #### L 100.0100, L501.5200, L500.4050 ####[facility] [address] [place], [address] Lymphocytes/100 WBC (Bld) 16.8 % Low 19-41 [facility] Comment on above: Performed By: #### L 100.0100, L501.5200, L500.4050 ####[facility] [address] [place], [address] MCH (RBC) [Entitic mass] 30.0 pg Normal 27.0-32.0 [facility] Comment on above: Performed By: #### L 100.0100, L501.5200, L500.4050 ####[facility] [address] [place], [address] MCHC (RBC) [Mass/Vol] 33.4 g/dL Normal 32-36 [facility] Comment on above: Performed By: #### L 100.0100, L501.5200, L500.4050 ####[facility] [address] [place], [address] MCV (RBC) [Entitic vol] 89.8 fL Normal 81-99 [facility] Comment on above: Performed By: #### L 100.0100, L501.5200, L500.4050 ####[facility] [address] [place], [address] Neutrophils/100 WBC (Bld) 72.3 % High 47-70 [facility] Comment on above: Performed By: #### L 100.0100, L501.5200, L500.4050 ####[facility] [address] [place], [address] Platelet mean volume (Bld) [Entitic vol] 10.0 fL Normal 6.2-12.0 [facility] Comment on above: Performed By: #### L 100.0100, L501.5200, L500.4050 ####[facility] [address] [place], [address] Platelets (Bld) [#/Vol] 159 10*3/uL Normal 150-450 [facility] Comment on above: Performed By: #### L 100.0100, L501.5200, L500.4050 ####[facility] [address] [place], [address] RBC (Bld) [#/Vol] 4.13 10*6/uL Low 4.2-5.4 [facility] Comment on above: Performed By: #### L 100.0100, L501.5200, L500.4050 ####[facility] [address] [place], [address] RDW SD 43.0 fl Normal 35.1-43.9 [facility] Comment on above: Performed By: #### L 100.0100, L501.5200, L500.4050 ####[facility] [address] [place], [address] WBC (Bld) [#/Vol] 5.9 10*3/uL Normal 4.4-11.0 [facility] Comment on above: Performed By: #### L 100.0100, L501.5200, L500.4050 ####[facility] [address] [place], [address] Carbon dioxide, total [Moles /volume] in Central venous bloodOrdered By: Bandar Stubbs on 01-16-2025 CO2 [Moles/Vol] 25.8 mmol/L 21.0-32.0 [facility] Chloride assayOrdered By: Deven Stubbs on 01-16-2025 Chloride [Moles/Vol] 103 mmol/L 98-108 [facility] Comprehensive Metabolic Prof ilon 01-16-2025 Albumin [Mass/Vol] 4.3 g/dL Normal 3.5-5.0 [facility] Comment on above: Performed By: #### L 100.0100, L501.5200, L500.4050 ####[facility] [address] [place], [address] Albumin/Globulin [Mass ratio] 1.8 {ratio} Normal 0.9-2.4 [facility] Comment on above: Performed By: #### L 100.0100, L501.5200, L500.4050 ####[facility] [address] [place], [address] ALK PHOS 95 U/L Normal 35-104 [facility] Comment on above: Performed By: #### L 100.0100, L501.5200, L500.4050 ####[facility] [address] [place], [address] ALT [Catalytic activity/Vol] 132 U/L High <=34 [facility] Comment on above: Performed By: #### L 100.0100, L501.5200, L500.4050 ####[facility] [address] [place], [address] AST [Catalytic activity/Vol] 70 U/L High <=31 [facility] Comment on above: Performed By: #### L 100.0100, L501.5200, L500.4050 ####[facility] [address] [place], [address] Bilirubin [Mass/Vol] 0.42 mg/dL Normal 0.00-1.30 [facility] Comment on above: Performed By: #### L 100.0100, L501.5200, L500.4050 ####[facility] [address] [place], [address] BUN/CRE 19.2 RATIO Normal 10-20 [facility] Comment on above: Performed By: #### L 100.0100, L501.5200, L500.4050 ####[facility] [address] [place], [address] Calcium [Mass/Vol] 9.8 mg/dL Normal 7.6-11.0 [facility] Comment on above: Performed By: #### L 100.0100, L501.5200, L500.4050 ####[facility] [address] [place], [address] Chloride [Moles/Vol] 103 mmol/L Normal 98-108 [facility] Comment on above: Performed By: #### L 100.0100, L501.5200, L500.4050 ####[facility] [address] [place], [address] CO2 [Moles/Vol] 25.8 mmol/L Normal 21.0-32.0 [facility] Comment on above: Performed By: #### L 100.0100, L501.5200, L500.4050 ####[facility] [address] [place], [address] Creatinine [Mass/Vol] 0.55 mg/dL Low 0.70-1.20 [facility] Comment on above: Performed By: #### L 100.0100, L501.5200, L500.4050 ####[facility] [address] [place], [address] ECRCL 127.89 ml/min Normal 50-250 [facility] Comment on above: Performed By: #### L 100.0100, L501.5200, L500.4050 ####[facility] [address] [place], [address] GAP 10 Normal 5-15 [facility] Comment on above: Performed By: #### L 100.0100, L501.5200, L500.4050 ####[facility] [address] [place], [address] GFR/1.73 sq M.predicted among non-blacks MDRD (S/P/Bld) [Vol rate/Area] 112 mL/min/{1.73_m2} Normal >60 [facility] Comment on above: Result Comment: mL/m in/1.73m2 CKD-EPI Creatinine Equation (2020) Performed By: #### L 100.0100, L501.5200, L500.4050 ####[facility] [address] [place], [address] Globulin (S) [Mass/Vol] 2.4 g/dL Normal 2.2-4.2 [facility] Comment on above: Performed By: #### L 100.0100, L501.5200, L500.4050 ####[facility] [address] [place], [address] Glucose [Mass/Vol] 98 mg/dL Normal 70-99 [facility] Comment on above: Performed By: #### L 100.0100, L501.5200, L500.4050 ####[facility] [address] [place], [address] Potassium [Moles/Vol] 4.2 mmol/L Normal 3.3-5.1 [facility] Comment on above: Performed By: #### L 100.0100, L501.5200, L500.4050 ####[facility] [address] [place], [address] Sodium [Moles/Vol] 139 mmol/L Normal 133-145 [facility] Comment on above: Performed By: #### L 100.0100, L501.5200, L500.4050 ####[facility] [address] [place], [address] T PROT 6.7 g/dL Normal 5.9-8.4 [facility] Comment on above: Performed By: #### L 100.0100, L501.5200, L500.4050 ####[facility] [address] [place], [address] Urea nitrogen [Mass/Vol] 11 mg/dL Normal 4-19 [facility] Comment on above: Performed By: #### L 100.0100, L501.5200, L500.4050 ####[facility] [address] [place], [address] Eosinophil %Ordered By: Arlette Stubbs on 01-16-2025 Eosinophils/100 WBC (Bld) 2.0 % 0-5 [facility] Erythrocyte distribution wid th ratioOrdered By: Bandar Stubbs on 01-16-2025 Erythrocyte distribution width (RBC) [Ratio] 13.1 % 11.6-14.6 [facility] Glomerular filtration rate ( GFR) estimation/1.73 sq m using serum, plasma, or whole bOrdered By: Bandar Stubbs on 01-16-2025 GFR/1.73 sq M.predicted among non-blacks MDRD (S/P/Bld) [Vol rate/Area] 112 mL/min/{1.73_m2} >60 [facility] Comment on above: mL/min/1.73m2 CKD-EP I Creatinine Equation (2020) Hematocrit Auto (Bld) [Volum e fraction]Ordered By: Bandar Stubbs on 01-16-2025 Hematocrit (Bld) [Volume fraction] 37.1 % 37-47 [facility] Hemoglobin measurementOrdere d By: Bandar Stubbs on 01-16-2025 Hemoglobin (Bld) [Mass/Vol] 12.4 g/dL 12.0-15.0 [facility] Immature granulocyte percent ageOrdered By: [facility] on 01-16-2025 Immature granulocytes/100 WBC (Bld) 0.800 % 0.0-0.9 [facility] Comment on above: IG% - Immature Granu locytes (promyelocytes, myelocytes and metamyelocytes) > 1% indicates that a LEFT SHIFT is Present. Laboratory - Chemistry and C hemistry - challengeOrdered By: Bandar Stubbs on 01-16-2025 AST [Catalytic activity/Vol] 70 U/L High <32 [facility] Lymphocyte %Ordered By: Arlette Stubbs on 01-16-2025 Lymphocytes/100 WBC (Bld) 16.8 % Low 19-41 [facility] MCV (mean corpuscular volume ) determinationOrdered By: Bandar Stubbs on 01-16-2025 MCV (RBC) [Entitic vol] 89.8 fL 81-99 [facility] Magnesiumon 01-16-2025 Magnesium [Mass/Vol] 2.1 mg/dL Normal 1.5-2.2 [facility] Comment on above: Performed By: #### L 100.0100, L501.5200, L500.4050 ####[facility] [address] [place], [address] Magnesium measurement (mass/ volume)Ordered By: Bandar Stubbs on 01-16-2025 Magnesium (Unsp spec) [Mass/Vol] 2.1 mg/dL 1.5-2.2 [facility] Mean corpuscular hemoglobin (MCH) determinationOrdered By: Bandar Stubbs on 01-16-2025 MCH (RBC) [Entitic mass] 30.0 pg 27.0-32.0 [facility] Mean corpuscular hemoglobin concentration (MCHC) determinationOrdered By: Bandar Stubbs on 01-16-2025 MCHC (RBC) [Mass/Vol] 33.4 g/dL 32-36 [facility] Mean platelet volume determi nationOrdered By: Bandar Stubbs on 01-16-2025 Platelet mean volume (Bld) [Entitic vol] 10.0 fL 6.2-12.0 [facility] Monocyte percentageOrdered B y: Bandar Stubbs on 01-16-2025 Monocytes/100 WBC (Bld) 7.3 % 0-10 [facility] Neutrophil %Ordered By: Arlette Stubbs on 01-16-2025 Neutrophils/100 WBC (Bld) 72.3 % High 47-70 [facility] Oncology Visit Reporton 01-03 Oncology Visit Report Normal [facility] Potassium measurement (mass/ volume)Ordered By: Bandar Stubbs on 01-16-2025 Potassium (Unsp spec) [Mass/Vol] 4.2 mmol/L 3.3-5.1 [facility] RBC Auto (Bld) [#/Vol]Ordere d By: Bandar Stubbs on 01-16-2025 RBC (Bld) [#/Vol] 4.13 10*6/uL Low 4.2-5.4 [facility] RDWOrdered By: Bandar swann on 01-16-2025 RDW 43.0 fl 35.1-43.9 [facility] Serum creatinine measurement (mass/volume)Ordered By: Bandar Stubbs on 01-16-2025 Creatinine [Mass/Vol] 0.55 mg/dL Low 0.70-1.20 [facility] Serum globulin measurementOr dered By: Bandar Stubbs on 01-16-2025 Globulin (S) [Mass/Vol] 2.4 g/dL 2.2-4.2 [facility] Serum glucose measurement (m ass/volume)Ordered By: Bandar Stubbs on 01-16-2025 Glucose [Mass/Vol] 98 mg/dL 70-99 [facility] Serum or plasma alanine moreno otransferase (ALT) measurementOrdered By: Bandar Stubbs on 01-16-2025 ALT [Catalytic activity/Vol] 132 U/L High <35 [facility] Serum or plasma albumin laurie urement (mass/volume)Ordered By: Bandar Stubbs on 01-16-2025 Albumin [Mass/Vol] 4.3 g/dL 3.5-5.0 [facility] Serum or plasma albumin/glob ulin mass ratioOrdered By: Bandar Stubbs on 01-16-2025 Albumin/Globulin [Mass ratio] 1.8 {ratio} 0.9-2.4 [facility] Serum or plasma alkaline geoffrey sphatase measurementOrdered By: Bandar Stubbs on 01-16-2025 ALP [Catalytic activity/Vol] 95 U/L 35-104 [facility] Serum or plasma calcium laurie urement (mass/volume)Ordered By: Bandar Stubbs on 01-16-2025 Calcium [Mass/Vol] 9.8 mg/dL 7.6-11.0 [facility] Serum or plasma urea nitroge n measurement (mass/volume)Ordered By: Bandar Stubbs on 01-16-2025 Urea nitrogen [Mass/Vol] 11 mg/dL 4-19 [facility] Sodium levelOrdered By: Arlette Stubbs on 01-16-2025 Sodium [Moles/Vol] 139 mmol/L 133-145 [facility] Total proteinOrdered By: Fabio Stubbs on 01-16-2025 Protein [Mass/Vol] 6.7 g/dL 5.9-8.4 [facility] White blood cell (WBC) count Ordered By: Bandar Stubbs on 01-16-2025 WBC (Bld) [#/Vol] 5.9 10*3/uL 4.4-11.0 [facility] Absolute lymphocyte countOrd ered By: [facility] Stubbs on 01-02-2025 Lymphocytes Auto (Unsp spec) [#/Vol] 0.92 10*3/uL 0.83-4.51 [facility] Absolute neutrophil countOrd ered By: [facility] on 01-02-2025 Neutrophils (Bld) [#/Vol] 1.9 10*3/uL Low 2.0-7.7 [facility] Anion gap in Serum or Plasma Ordered By: [facility] St[facility] on 01-02-2025 Anion gap [Moles/Vol] 12 mmol/L 5-15 [facility] Automated lymphocyte count a s percentage of total leukocytesOrdered By: [facility] on 01-02-2025 Lymphocytes/100 WBC Auto (Unsp spec) 24.9 % 19-41 [facility] BUN/creatinine ratioOrdered By: [facility] on 01-02-2025 Urea nitrogen/Creatinine [Mass ratio] 13.8 mg/mg 10-20 [facility] Basophil percentageOrdered B y: [facility] on 01-02-2025 Basophils/100 WBC (Bld) 1.1 % High 0-1 [facility] Bilirubin, totalOrdered By: [facility] on 01-02-2025 Bilirubin [Mass/Vol] 0.30 mg/dL 0.00-1.30 [facility] CBC W/Diff, Automatedon 12-05 Absolute Lymph 0.92 X10 3/uL Normal 0.83-4.51 [facility] Comment on above: Performed By: #### L 501.5200, L100.0100, L500.4050 ####[facility] [address] [place], [place], [address] Absolute Neut 1.9 X10 3/uL Low 2.0-7.7 [facility] Comment on above: Performed By: #### L 501.5200, L100.0100, L500.4050 ####[facility] [address] [place], [address] Basophils/100 WBC (Bld) 1.1 % High 0-1 [facility] Comment on above: Performed By: #### L 501.5200, L100.0100, L500.4050 ####[facility] [address] [place], [address] Eosinophils/100 WBC (Bld) 9.7 % High 0-5 [facility] Comment on above: Performed By: #### L 501.5200, L100.0100, L500.4050 ####[facility] [address] [place], [address] Erythrocyte distribution width (RBC) [Ratio] 14.6 % Normal 11.6-14.6 [facility] Comment on above: Performed By: #### L 501.5200, L100.0100, L500.4050 ####[facility] [address] [place], [address] Hematocrit (Bld) [Volume fraction] 36.2 % Low 37-47 [facility] Comment on above: Performed By: #### L 501.5200, L100.0100, L500.4050 ####[facility] [address] [place], [address] Hemoglobin (Bld) [Mass/Vol] 12.1 g/dL Normal 12.0-15.0 [facility] Comment on above: Performed By: #### L 501.5200, L100.0100, L500.4050 ####[facility] [address] [place], [address] IG% 0.300 Normal 0.0-0.9 [facility] Comment on above: Result Comment: IG% - Immature Granulocytes (promyelocytes, myelocytes andmetamyelocytes) > 1% indicates that a LEFT SHIFT is Present. Performed By: #### L 501.5200, L100.0100, L500.4050 ####[facility] [address] [place], [address] Lymphocytes/100 WBC (Bld) 24.9 % Normal 19-41 [facility] Comment on above: Performed By: #### L 501.5200, L100.0100, L500.4050 ####[facility] [address] [place], [address] MCH (RBC) [Entitic mass] 30.2 pg Normal 27.0-32.0 [facility] Comment on above: Performed By: #### L 501.5200, L100.0100, L500.4050 ####[facility] [address] [place], [address] MCHC (RBC) [Mass/Vol] 33.4 g/dL Normal 32-36 [facility] Comment on above: Performed By: #### L 501.5200, L100.0100, L500.4050 ####[facility] [address] [place], [address] MCV (RBC) [Entitic vol] 90.3 fL Normal 81-99 [facility] Comment on above: Performed By: #### L 501.5200, L100.0100, L500.4050 ####[facility] [address] [place], [address] Monocytes/100 WBC (Bld) 11.6 % High 0-10 [facility] Comment on above: Performed By: #### L 501.5200, L100.0100, L500.4050 ####[facility] [address] [place], [address] Neutrophils/100 WBC (Bld) 52.4 % Normal 47-70 [facility] Comment on above: Performed By: #### L 501.5200, L100.0100, L500.4050 ####[facility] [address] [place], [address] Nucleated RBC (Bld) [#/Vol] 0 10*3/uL Normal 0-5 [facility] Comment on above: Performed By: #### L 501.5200, L100.0100, L500.4050 ####[facility] [address] [place], [address] Platelet mean volume (Bld) [Entitic vol] 10.1 fL Normal 6.2-12.0 [facility] Comment on above: Performed By: #### L 501.5200, L100.0100, L500.4050 ####[facility] [address] [place], [address] Platelets (Bld) [#/Vol] 151 10*3/uL Normal 150-450 [facility] Comment on above: Performed By: #### L 501.5200, L100.0100, L500.4050 ####[facility] [address] [place], [address] RBC (Bld) [#/Vol] 4.01 10*6/uL Low 4.2-5.4 [facility] Comment on above: Performed By: #### L 501.5200, L100.0100, L500.4050 ####[facility] [address] [place], [address] RDW SD 48.9 fl High 35.1-43.9 [facility] Comment on above: Performed By: #### L 501.5200, L100.0100, L500.4050 ####[facility] [address] [place], [address] WBC (Bld) [#/Vol] 3.7 10*3/uL Low 4.4-11.0 [facility] Comment on above: Performed By: #### L 501.5200, L100.0100, L500.4050 ####[facility] [address] [place], [address] Carbon dioxide, total [Moles /volume] in Central venous bloodOrdered By: Bandar Stubbs on 01-02-2025 CO2 [Moles/Vol] 24.6 mmol/L 21.0-32.0 [facility] Chloride assayOrdered By: Deven Stubbs on 01-02-2025 Chloride [Moles/Vol] 107 mmol/L 98-108 [facility] Comprehensive Metabolic Prof ilon 01-02-2025 Albumin [Mass/Vol] 4.3 g/dL Normal 3.5-5.0 [facility] Comment on above: Performed By: #### L 501.5200, L100.0100, L500.4050 ####[facility] [address] [place], [address] Albumin/Globulin [Mass ratio] 1.7 {ratio} Normal 0.9-2.4 [facility] Comment on above: Performed By: #### L 501.5200, L100.0100, L500.4050 ####[facility] [address] [place], [address] ALK PHOS 77 U/L Normal 35-104 [facility] Comment on above: Performed By: #### L 501.5200, L100.0100, L500.4050 ####[facility] [address] [place], [address] ALT [Catalytic activity/Vol] 91 U/L High <=34 [facility] Comment on above: Performed By: #### L 501.5200, L100.0100, L500.4050 ####[facility] [address] [place], [address] AST [Catalytic activity/Vol] 66 U/L High <=31 [facility] Comment on above: Performed By: #### L 501.5200, L100.0100, L500.4050 ####[facility] [address] [place], [address] Bilirubin [Mass/Vol] 0.30 mg/dL Normal 0.00-1.30 [facility] Comment on above: Performed By: #### L 501.5200, L100.0100, L500.4050 ####[facility] [address] [place], [address] BUN/CRE 13.8 RATIO Normal 10-20 [facility] Comment on above: Performed By: #### L 501.5200, L100.0100, L500.4050 ####[facility] [address] [place], [address] Calcium [Mass/Vol] 9.8 mg/dL Normal 7.6-11.0 [facility] Comment on above: Performed By: #### L 501.5200, L100.0100, L500.4050 ####[facility] [address] [place], [address] Chloride [Moles/Vol] 107 mmol/L Normal 98-108 [facility] Comment on above: Performed By: #### L 501.5200, L100.0100, L500.4050 ####[facility] [address] [place], [address] CO2 [Moles/Vol] 24.6 mmol/L Normal 21.0-32.0 [facility] Comment on above: Performed By: #### L 501.5200, L100.0100, L500.4050 ####[facility] [address] [place], [address] Creatinine [Mass/Vol] 0.58 mg/dL Low 0.70-1.20 [facility] Comment on above: Performed By: #### L 501.5200, L100.0100, L500.4050 ####[facility] [address] [place], [address] ECRCL 121.27 ml/min Normal 50-250 [facility] Comment on above: Performed By: #### L 501.5200, L100.0100, L500.4050 ####[facility] [address] [place], [address] GAP 12 Normal 5-15 [facility] Comment on above: Performed By: #### L 501.5200, L100.0100, L500.4050 ####[facility] [address] [place], [address] GFR/1.73 sq M.predicted among non-blacks MDRD (S/P/Bld) [Vol rate/Area] 110 mL/min/{1.73_m2} Normal >60 [facility] Comment on above: Result Comment: mL/m in/1.73m2 CKD-EPI Creatinine Equation (2020) Performed By: #### L 501.5200, L100.0100, L500.4050 ####[facility] [address] [place], [address] Globulin (S) [Mass/Vol] 2.5 g/dL Normal 2.2-4.2 [facility] Comment on above: Performed By: #### L 501.5200, L100.0100, L500.4050 ####[facility] [address] [place], [address] Glucose [Mass/Vol] 101 mg/dL High 70-99 [facility] Comment on above: Performed By: #### L 501.5200, L100.0100, L500.4050 ####[facility] [address] [place], [address] Potassium [Moles/Vol] 4.3 mmol/L Normal 3.3-5.1 [facility] Comment on above: Performed By: #### L 501.5200, L100.0100, L500.4050 ####[facility] [address] [place], [address] Sodium [Moles/Vol] 143 mmol/L Normal 133-145 [facility] Comment on above: Performed By: #### L 501.5200, L100.0100, L500.4050 ####[facility] [address] [place], [address] T PROT 6.8 g/dL Normal 5.9-8.4 [facility] Comment on above: Performed By: #### L 501.5200, L100.0100, L500.4050 ####[facility] [address] [place], [address] Urea nitrogen [Mass/Vol] 8 mg/dL Normal 4-19 [facility] Comment on above: Performed By: #### L 501.5200, L100.0100, L500.4050 ####[facility] [address] [place], [address] Eosinophil percentageOrdered By: Bandar Stubbs on 01-02-2025 Eosinophils/100 WBC (Bld) 9.7 % High 0-5 [facility] Erythrocyte distribution wid th ratioOrdered By: Bandar Stubbs on 01-02-2025 Erythrocyte distribution width (RBC) [Ratio] 14.6 % 11.6-14.6 [facility] Erythrocyte distribution wid th standard deviationOrdered By: Bandar Stubbs on 01-02-2025 Erythrocyte distribution width (RBC) [Ratio] 48.9 fl High 35.1-43.9 [facility] Glomerular filtration rate ( GFR) estimation/1.73 sq m using serum, plasma, or whole bOrdered By: Bandar Stubbs on 01-02-2025 GFR/1.73 sq M.predicted among non-blacks MDRD (S/P/Bld) [Vol rate/Area] 110 mL/min/{1.73_m2} >60 [facility] Comment on above: mL/min/1.73m2 CKD-EP I Creatinine Equation (2020) Hematocrit Auto (Bld) [Volum e fraction]Ordered By: Bandar Stubbs on 01-02-2025 Hematocrit (Bld) [Volume fraction] 36.2 % Low 37-47 [facility] Hemoglobin measurementOrdere d By: Bandar Stubbs on 01-02-2025 Hemoglobin (Bld) [Mass/Vol] 12.1 g/dL 12.0-15.0 [facility] Immature granulocytes/100 WB C Auto (Bld)Ordered By: Bandar Stubbs on 01-02-2025 Immature granulocytes/100 WBC (Bld) 0.300 % 0.0-0.9 [facility] Comment on above: IG% - Immature Granu locytes (promyelocytes, myelocytes and metamyelocytes) > 1% indicates that a LEFT SHIFT is Present. Laboratory - Chemistry and C hemistry - challengeOrdered By: Bandar Stubbs on 01-02-2025 AST [Catalytic activity/Vol] 66 U/L High <32 [facility] MCV (mean corpuscular volume ) determinationOrdered By: Bandar Stubbs on 01-02-2025 MCV (RBC) [Entitic vol] 90.3 fL 81-99 [facility] Magnesiumon 01-02-2025 Magnesium [Mass/Vol] 2.1 mg/dL Normal 1.5-2.2 [facility] Comment on above: Performed By: #### L 501.5200, L100.0100, L500.4050 ####[facility] [address] [place], [address] Magnesium measurement (mass/ volume)Ordered By: Bandar Stubbs on 01-02-2025 Magnesium (Unsp spec) [Mass/Vol] 2.1 mg/dL 1.5-2.2 [facility] Mean corpuscular hemoglobin (MCH) determinationOrdered By: Bandar Stubbs on 01-02-2025 MCH (RBC) [Entitic mass] 30.2 pg 27.0-32.0 [facility] Mean corpuscular hemoglobin concentration (MCHC) determinationOrdered By: Bandar Stubbs on 01-02-2025 MCHC (RBC) [Mass/Vol] 33.4 g/dL 32-36 [facility] Mean platelet volume determi nationOrdered By: Bandar Stubbs on 01-02-2025 Platelet mean volume (Bld) [Entitic vol] 10.1 fL 6.2-12.0 [facility] Monocyte percentageOrdered B y: Bandar Stubbs on 01-02-2025 Monocytes/100 WBC (Bld) 11.6 % High 0-10 [facility] Neutrophil percentageOrdered By: Bandar Stubbs on 01-02-2025 Neutrophils/100 WBC (Bld) 52.4 % 47-70 [facility] Nucleated red blood cell per centageOrdered By: Bandar Stubbs on 01-02-2025 Nucleated RBC/100 WBC (Bld) [Ratio] 0 % 0-5 [facility] Oncology Visit Reporton 12-05 Oncology Visit Report Normal [facility] Platelet countOrdered By: Deven Stubbs on 01-02-2025 Platelets (Bld) [#/Vol] 151 10*3/uL 150-450 [facility] Potassium measurement (mass/ volume)Ordered By: Bandar Stubbs on 01-02-2025 Potassium (Unsp spec) [Mass/Vol] 4.3 mmol/L 3.3-5.1 [facility] RBC Auto (Bld) [#/Vol]Ordere d By: Bandar Stubbs on 01-02-2025 RBC (Bld) [#/Vol] 4.01 10*6/uL Low 4.2-5.4 [facility] Serum creatinine measurement (mass/volume)Ordered By: Bandar Stubbs on 01-02-2025 Creatinine [Mass/Vol] 0.58 mg/dL Low 0.70-1.20 [facility] Serum globulin measurementOr dered By: Bandar Stubbs on 01-02-2025 Globulin (S) [Mass/Vol] 2.5 g/dL 2.2-4.2 [facility] Serum glucose measurement (m ass/volume)Ordered By: Bandar Stubbs on 01-02-2025 Glucose [Mass/Vol] 101 mg/dL High 70-99 [facility] Serum or plasma alanine moreno otransferase (ALT) measurementOrdered By: Bandar Stubbs on 01-02-2025 ALT [Catalytic activity/Vol] 91 U/L High <35 [facility] Serum or plasma albumin laurie urement (mass/volume)Ordered By: Bandar Stubbs on 01-02-2025 Albumin [Mass/Vol] 4.3 g/dL 3.5-5.0 [facility] Serum or plasma albumin/glob ulin mass ratioOrdered By: Bandar Stubbs on 01-02-2025 Albumin/Globulin [Mass ratio] 1.7 {ratio} 0.9-2.4 [facility] Serum or plasma alkaline geoffrey sphatase measurementOrdered By: Bandar Stubbs on 01-02-2025 ALP [Catalytic activity/Vol] 77 U/L 35-104 [facility] Serum or plasma calcium laurie urement (mass/volume)Ordered By: Bandar Stubbs on 01-02-2025 Calcium [Mass/Vol] 9.8 mg/dL 7.6-11.0 [facility] Serum or plasma urea nitroge n measurement (mass/volume)Ordered By: Bandar Stubbs on 01-02-2025 Urea nitrogen [Mass/Vol] 8 mg/dL 4-19 [facility] Sodium levelOrdered By: Arlette Stubbs on 01-02-2025 Sodium [Moles/Vol] 143 mmol/L 133-145 [facility] Total proteinOrdered By: Fabio Stubbs on 01-02-2025 Protein [Mass/Vol] 6.8 g/dL 5.9-8.4 [facility] White blood cell (WBC) count Ordered By: Bandar Stubbs on 01-02-2025 WBC (Bld) [#/Vol] 3.7 10*3/uL Low 4.4-11.0 [facility] Absolute lymphocyte countOrd ered By: Bandar Stubbs on 12-26-2024 Lymphocytes Auto (Unsp spec) [#/Vol] 0.98 10*3/uL 0.83-4.51 [facility] Absolute neutrophil countOrd ered By: Bandar Stubbs on 12-26-2024 Neutrophils (Bld) [#/Vol] 2.2 10*3/uL 2.0-7.7 [facility] Anion gap in Serum or Plasma Ordered By: Bandar Keatingedwin on 12-26-2024 Anion gap [Moles/Vol] 10 mmol/L 5-15 [facility] Automated lymphocyte count a s percentage of total leukocytesOrdered By: Bandar Keatingedwin on 12-26-2024 Lymphocytes/100 WBC Auto (Unsp spec) 24.9 % - [facility] BUN/creatinine ratioOrdered By: [facility] Keatingedwin on 12-26-2024 Urea nitrogen/Creatinine [Mass ratio] 18.5 mg/mg 10- [facility] Basophil percentageOrdered B y: Bandar Keatingedwin on 12-26-2024 Basophils/100 WBC (Bld) 1.5 % High 0-1 [facility] Bilirubin, totalOrdered By: Bandar Keatingedwin on 12-26-2024 Bilirubin [Mass/Vol] 0.36 mg/dL 0.00-1.30 [facility] CBC W/Diff, Automatedon 12-04 Absolute Lymph 0.98 X10 3/uL Normal 0.83-4.51 [facility] Comment on above: Performed By: #### L 500.4050, L501.5200, L100.0100 ####[facility] [address] [place], [address] Absolute Neut 2.2 X10 3/uL Normal 2.0-7.7 [facility] Comment on above: Performed By: #### L 500.4050, L501.5200, L100.0100 ####[facility] [address] [place], [address] Basophils/100 WBC (Bld) 1.5 % High 0-1 [facility] Comment on above: Performed By: #### L 500.4050, L501.5200, L100.0100 ####[facility] [address] [place], [address] Eosinophils/100 WBC (Bld) 3.3 % Normal 0-5 [facility] Comment on above: Performed By: #### L 500.4050, L501.5200, L100.0100 ####[facility] [address] [place], [address] Erythrocyte distribution width (RBC) [Ratio] 16.2 % High 11.6-14.6 [facility] Comment on above: Performed By: #### L 500.4050, L501.5200, L100.0100 ####[facility] [address] [place], [address] Hematocrit (Bld) [Volume fraction] 35.1 % Low 37-47 [facility] Comment on above: Performed By: #### L 500.4050, L501.5200, L100.0100 ####[facility] [address] [place], [address] Hemoglobin (Bld) [Mass/Vol] 11.7 g/dL Low 12.0-15.0 [facility] Comment on above: Performed By: #### L 500.4050, L501.5200, L100.0100 ####[facility] [address] [place], [address] IG% 0.800 Normal 0.0-0.9 [facility] Comment on above: Result Comment: IG% - Immature Granulocytes (promyelocytes, myelocytes andmetamyelocytes) > 1% indicates that a LEFT SHIFT is Present. Performed By: #### L 500.4050, L501.5200, L100.0100 ####[facility] [address] [place], [address] Lymphocytes/100 WBC (Bld) 24.9 % Normal 19-41 [facility] Comment on above: Performed By: #### L 500.4050, L501.5200, L100.0100 ####[facility] [address] [place], [address] MCH (RBC) [Entitic mass] 30.3 pg Normal 27.0-32.0 [facility] Comment on above: Performed By: #### L 500.4050, L501.5200, L100.0100 ####[facility] [address] [place], [address] MCHC (RBC) [Mass/Vol] 33.3 g/dL Normal 32-36 [facility] Comment on above: Performed By: #### L 500.4050, L501.5200, L100.0100 ####[facility] [address] [place], [address] MCV (RBC) [Entitic vol] 90.9 fL Normal 81-99 [facility] Comment on above: Performed By: #### L 500.4050, L501.5200, L100.0100 ####[facility] [address] [place], [address] Monocytes/100 WBC (Bld) 14.7 % High 0-10 [facility] Comment on above: Performed By: #### L 500.4050, L501.5200, L100.0100 ####[facility] [address] [place], [address] Neutrophils/100 WBC (Bld) 54.8 % Normal 47-70 [facility] Comment on above: Performed By: #### L 500.4050, L501.5200, L100.0100 ####[facility] [address] [place], [address] Nucleated RBC (Bld) [#/Vol] 0 10*3/uL Normal 0-5 [facility] Comment on above: Performed By: #### L 500.4050, L501.5200, L100.0100 ####[facility] [address] [place], [address] Platelet mean volume (Bld) [Entitic vol] 9.9 fL Normal 6.2-12.0 [facility] Comment on above: Performed By: #### L 500.4050, L501.5200, L100.0100 ####[facility] [address] [place], [address] Platelets (Bld) [#/Vol] 198 10*3/uL Normal 150-450 [facility] Comment on above: Performed By: #### L 500.4050, L501.5200, L100.0100 ####[facility] [address] [place], [address] RBC (Bld) [#/Vol] 3.86 10*6/uL Low 4.2-5.4 [facility] Comment on above: Performed By: #### L 500.4050, L501.5200, L100.0100 ####[facility] [address] [place], [address] RDW SD 54.0 fl High 35.1-43.9 [facility] Comment on above: Performed By: #### L 500.4050, L501.5200, L100.0100 ####[facility] [address] [place], [address] WBC (Bld) [#/Vol] 3.9 10*3/uL Low 4.4-11.0 [facility] Comment on above: Performed By: #### L 500.4050, L501.5200, L100.0100 ####[facility] [address] [place], [address] Absolute Neut Normal 2.0-7.7 [facility] Comment on above: Result Comment: Canc elled via OM: transaminitis Performed By: #### L 500.4050, L100.0100 ####[facility] [address] [place], [address] HCT Normal 37-47 [facility] Comment on above: Result Comment: Canc elled via OM: transaminitis Performed By: #### L 500.4050, L100.0100 ####[facility] [address] [place], [address] HGB Normal 12.0-15.0 [facility] Comment on above: Result Comment: Canc elled via OM: transaminitis Performed By: #### L 500.4050, L100.0100 ####[facility] [address] [place], [address] MCH Normal 27.0-32.0 [facility] Comment on above: Result Comment: Canc elled via OM: transaminitis Performed By: #### L 500.4050, L100.0100 ####[facility] [address] [place], [address] MCHC Normal 32-36 [facility] Comment on above: Result Comment: Canc elled via OM: transaminitis Performed By: #### L 500.4050, L100.0100 ####[facility] [address] [place], [address] MCV Normal 81-99 [facility] Comment on above: Result Comment: Canc elled via OM: transaminitis Performed By: #### L 500.4050, L100.0100 ####[facility] [address] [place], [address] NEUT% Normal 47-70 [facility] Comment on above: Result Comment: Canc elled via OM: transaminitis Performed By: #### L 500.4050, L100.0100 ####[facility] [address] [place], [address] PLT Normal 150-450 [facility] Comment on above: Result Comment: Canc elled via OM: transaminitis Performed By: #### L 500.4050, L100.0100 ####[facility] [address] [place], [address] RBC Normal 4.2-5.4 [facility] Comment on above: Result Comment: Canc elled via OM: transaminitis Performed By: #### L 500.4050, L100.0100 ####[facility] [address] [place], [address] RDW CV Normal 11.6-14.6 [facility] Comment on above: Result Comment: Canc elled via OM: transaminitis Performed By: #### L 500.4050, L100.0100 ####[facility] [address] [place], [address] RDW SD Normal 35.1-43.9 [facility] Comment on above: Result Comment: Canc elled via OM: transaminitis Performed By: #### L 500.4050, L100.0100 ####[facility] [address] [place], [address] WBC Normal 4.4-11.0 [facility] Comment on above: Result Comment: Canc elled via OM: transaminitis Performed By: #### L 500.4050, L100.0100 ####[facility] [address] [place], [address] Carbon dioxide, total [Moles /volume] in Central venous bloodOrdered By: Bandar Stubbs on 12-26-2024 CO2 [Moles/Vol] 24.9 mmol/L 21.0-32.0 [facility] Chloride assayOrdered By: Deevn Stubbs on 12-26-2024 Chloride [Moles/Vol] 106 mmol/L 98-108 [facility] Comprehensive Metabolic Prof ilon 12-26-2024 Albumin [Mass/Vol] 4.2 g/dL Normal 3.5-5.0 [facility] Comment on above: Performed By: #### L 500.4050, L501.5200, L100.0100 ####[facility] [address] [place], [address] Albumin/Globulin [Mass ratio] 1.8 {ratio} Normal 0.9-2.4 [facility] Comment on above: Performed By: #### L 500.4050, L501.5200, L100.0100 ####[facility] [address] [place], [address] ALK PHOS 81 U/L Normal 35-104 [facility] Comment on above: Performed By: #### L 500.4050, L501.5200, L100.0100 ####[facility] [address] [place], [address] ALT [Catalytic activity/Vol] 99 U/L High <=34 [facility] Comment on above: Performed By: #### L 500.4050, L501.5200, L100.0100 ####[facility] [address] [place], [address] AST [Catalytic activity/Vol] 64 U/L High <=31 [facility] Comment on above: Performed By: #### L 500.4050, L501.5200, L100.0100 ####[facility] [address] [place], [address] Bilirubin [Mass/Vol] 0.36 mg/dL Normal 0.00-1.30 [facility] Comment on above: Performed By: #### L 500.4050, L501.5200, L100.0100 ####[facility] [address] [place], [address] BUN/CRE 18.5 RATIO Normal 10-20 [facility] Comment on above: Performed By: #### L 500.4050, L501.5200, L100.0100 ####[facility] [address] [place], [address] Calcium [Mass/Vol] 9.7 mg/dL Normal 7.6-11.0 [facility] Comment on above: Performed By: #### L 500.4050, L501.5200, L100.0100 ####[facility] [address] [place], [address] Chloride [Moles/Vol] 106 mmol/L Normal 98-108 [facility] Comment on above: Performed By: #### L 500.4050, L501.5200, L100.0100 ####[facility] [address] [place], [address] CO2 [Moles/Vol] 24.9 mmol/L Normal 21.0-32.0 [facility] Comment on above: Performed By: #### L 500.4050, L501.5200, L100.0100 ####[facility] [address] [place], [address] Creatinine [Mass/Vol] 0.58 mg/dL Low 0.70-1.20 [facility] Comment on above: Performed By: #### L 500.4050, L501.5200, L100.0100 ####[facility] [address] [place], [address] ECRCL 122.62 ml/min Normal 50-250 [facility] Comment on above: Performed By: #### L 500.4050, L501.5200, L100.0100 ####[facility] [address] [place], [address] GAP 10 Normal 5-15 [facility] Comment on above: Performed By: #### L 500.4050, L501.5200, L100.0100 ####[facility] [address] [place], [address] GFR/1.73 sq M.predicted among non-blacks MDRD (S/P/Bld) [Vol rate/Area] 111 mL/min/{1.73_m2} Normal >60 [facility] Comment on above: Result Comment: mL/m in/1.73m2 CKD-EPI Creatinine Equation (2020) Performed By: #### L 500.4050, L501.5200, L100.0100 ####[facility] [address] [place], [address] Globulin (S) [Mass/Vol] 2.3 g/dL Normal 2.2-4.2 [facility] Comment on above: Performed By: #### L 500.4050, L501.5200, L100.0100 ####[facility] [address] [place], [address] Glucose [Mass/Vol] 88 mg/dL Normal 70-99 [facility] Comment on above: Performed By: #### L 500.4050, L501.5200, L100.0100 ####[facility] [address] [place], [address] Potassium [Moles/Vol] 4.1 mmol/L Normal 3.3-5.1 [facility] Comment on above: Performed By: #### L 500.4050, L501.5200, L100.0100 ####[facility] [address] [place], [address] Sodium [Moles/Vol] 141 mmol/L Normal 133-145 [facility] Comment on above: Performed By: #### L 500.4050, L501.5200, L100.0100 ####[facility] [address] [place], [address] T PROT 6.6 g/dL Normal 5.9-8.4 [facility] Comment on above: Performed By: #### L 500.4050, L501.5200, L100.0100 ####[facility] [address] [place], [address] Urea nitrogen [Mass/Vol] 11 mg/dL Normal 4-19 [facility] Comment on above: Performed By: #### L 500.4050, L501.5200, L100.0100 ####[facility] [address] [place], [address] ALB Normal 3.5-5.0 [facility] Comment on above: Result Comment: Canc elled via OM: transaminitis Performed By: #### L 500.4050, L100.0100 ####[facility] [address] [place], [address] ALK PHOS Normal 35-104 [facility] Comment on above: Result Comment: Canc elled via OM: transaminitis Performed By: #### L 500.4050, L100.0100 ####[facility] [address] [place], [address] ALT Normal <=34 [facility] Comment on above: Result Comment: Canc elled via OM: transaminitis Performed By: #### L 500.4050, L100.0100 ####[facility] [address] [place], [address] AST Normal <=31 [facility] Comment on above: Result Comment: Canc elled via OM: transaminitis Performed By: #### L 500.4050, L100.0100 ####[facility] [address] [place], [address] BUN Normal 4-19 [facility] Comment on above: Result Comment: Canc elled via OM: transaminitis Performed By: #### L 500.4050, L100.0100 ####[facility] [address] [place], [address] BUN/CRE Normal 10-20 [facility] Comment on above: Result Comment: Canc elled via OM: transaminitis Performed By: #### L 500.4050, L100.0100 ####[facility] [address] [place], [address] Calcium Normal 7.6-11.0 [facility] Comment on above: Result Comment: Canc elled via OM: transaminitis Performed By: #### L 500.4050, L100.0100 ####[facility] [address] [place], [address] CL Normal 98-108 [facility] Comment on above: Result Comment: Canc elled via OM: transaminitis Performed By: #### L 500.4050, L100.0100 ####[facility] [address] [place], [address] CO2 Normal 21.0-32.0 [facility] Comment on above: Result Comment: Canc elled via OM: transaminitis Performed By: #### L 500.4050, L100.0100 ####[facility] [address] [place], [address] CREAT,SERUM Normal 0.70-1.20 [facility] Comment on above: Result Comment: Canc elled via OM: transaminitis Performed By: #### L 500.4050, L100.0100 ####[facility] [address] [place], [address] eGFR Normal >60 [facility] Comment on above: Result Comment: Canc elled via OM: transaminitis Performed By: #### L 500.4050, L100.0100 ####[facility] [address] [place], [address] GAP Normal 5-15 [facility] Comment on above: Result Comment: Canc elled via OM: transaminitis Performed By: #### L 500.4050, L100.0100 ####[facility] [address] [place], [address] GLU Normal 70-99 [facility] Comment on above: Result Comment: Canc elled via OM: transaminitis Performed By: #### L 500.4050, L100.0100 ####[facility] [address] [place], [address] Potassium Normal 3.3-5.1 [facility] Comment on above: Result Comment: Canc elled via OM: transaminitis Performed By: #### L 500.4050, L100.0100 ####[facility] [address] [place], [address] T BILI Normal 0.00-1.30 [facility] Comment on above: Result Comment: Canc elled via OM: transaminitis Performed By: #### L 500.4050, L100.0100 ####[facility] [address] [place], [address] T PROT Normal 5.9-8.4 [facility] Comment on above: Result Comment: Canc elled via OM: transaminitis Performed By: #### L 500.4050, L100.0100 ####[facility] [address] [place], [address] Comprehensive Metabolic Profil Normal 133-145 [facility] Comment on above: Result Comment: Canc elled via OM: transaminitis Performed By: #### L 500.4050, L100.0100 ####[facility] [address] [place], [address] Eosinophil percentageOrdered By: Bandar Stubbs on 12-26-2024 Eosinophils/100 WBC (Bld) 3.3 % 0-5 [facility] Erythrocyte distribution wid th ratioOrdered By: Bandar Stubbs on 12-26-2024 Erythrocyte distribution width (RBC) [Ratio] 16.2 % High 11.6-14.6 [facility] Erythrocyte distribution wid th standard deviationOrdered By: Bandar Stubbs on 12-26-2024 Erythrocyte distribution width (RBC) [Ratio] 54.0 fl High 35.1-43.9 [facility] Glomerular filtration rate ( GFR) estimation/1.73 sq m using serum, plasma, or whole bOrdered By: Bandar Stubbs on 12-26-2024 GFR/1.73 sq M.predicted among non-blacks MDRD (S/P/Bld) [Vol rate/Area] 111 mL/min/{1.73_m2} >60 [facility] Comment on above: mL/min/1.73m2 CKD-EP I Creatinine Equation (2020) Hematocrit Auto (Bld) [Volum e fraction]Ordered By: Bandar Stubbs on 12-26-2024 Hematocrit (Bld) [Volume fraction] 35.1 % Low 37-47 [facility] Hemoglobin measurementOrdere d By: Bandar Stubbs on 12-26-2024 Hemoglobin (Bld) [Mass/Vol] 11.7 g/dL Low 12.0-15.0 [facility] Immature granulocytes/100 WB C Auto (Bld)Ordered By: [facility] on 12-26-2024 Immature granulocytes/100 WBC (Bld) 0.800 % 0.0-0.9 [facility] Comment on above: IG% - Immature Granu locytes (promyelocytes, myelocytes and metamyelocytes) > 1% indicates that a LEFT SHIFT is Present. Laboratory - Chemistry and C hemistry - challengeOrdered By: Bandar Stubbs on 12-26-2024 AST [Catalytic activity/Vol] 64 U/L High <32 [facility] MCV (mean corpuscular volume ) determinationOrdered By: [facility] St[facility] on 12-26-2024 MCV (RBC) [Entitic vol] 90.9 fL 81-99 [facility] Magnesiumon 12-26-2024 Magnesium [Mass/Vol] 2.0 mg/dL Normal 1.5-2.2 [facility] Comment on above: Performed By: #### L 500.4050, L501.5200, L100.0100 ####[facility] [address] [place], [address] Magnesium measurement (mass/ volume)Ordered By: Bandar Stubsb on 12-26-2024 Magnesium (Unsp spec) [Mass/Vol] 2.0 mg/dL 1.5-2.2 [facility] Mean corpuscular hemoglobin (MCH) determinationOrdered By: Bandar Stubbs on 12-26-2024 MCH (RBC) [Entitic mass] 30.3 pg 27.0-32.0 [facility] Mean corpuscular hemoglobin concentration (MCHC) determinationOrdered By: Bandar Stubbs on 12-26-2024 MCHC (RBC) [Mass/Vol] 33.3 g/dL 32-36 [facility] Mean platelet volume determi nationOrdered By: Bandar Stubbs on 12-26-2024 Platelet mean volume (Bld) [Entitic vol] 9.9 fL 6.2-12.0 [facility] Monocyte percentageOrdered B y: Bandar Stubbs on 12-26-2024 Monocytes/100 WBC (Bld) 14.7 % High 0-10 [facility] Neutrophil percentageOrdered By: Bandar Stubbs on 12-26-2024 Neutrophils/100 WBC (Bld) 54.8 % 47-70 [facility] Nucleated red blood cell per centageOrdered By: Bandar Stubbs on 12-26-2024 Nucleated RBC/100 WBC (Bld) [Ratio] 0 % 0-5 [facility] Oncology Visit Reporton 12-04 Oncology Visit Report Normal [facility] Platelet countOrdered By: Deven Stubbs on 12-26-2024 Platelets (Bld) [#/Vol] 198 10*3/uL 150-450 [facility] Potassium measurement (mass/ volume)Ordered By: Bandar Stubbs on 12-26-2024 Potassium (Unsp spec) [Mass/Vol] 4.1 mmol/L 3.3-5.1 [facility] RBC Auto (Bld) [#/Vol]Ordere d By: Bandar Stubbs on 12-26-2024 RBC (Bld) [#/Vol] 3.86 10*6/uL Low 4.2-5.4 [facility] Serum creatinine measurement (mass/volume)Ordered By: Bandar Stubbs on 12-26-2024 Creatinine [Mass/Vol] 0.58 mg/dL Low 0.70-1.20 [facility] Serum globulin measurementOr dered By: Bandar Stubbs on 12-26-2024 Globulin (S) [Mass/Vol] 2.3 g/dL 2.2-4.2 [facility] Serum glucose measurement (m ass/volume)Ordered By: Bandar Stubbs on 12-26-2024 Glucose [Mass/Vol] 88 mg/dL 70-99 [facility] Serum or plasma alanine moreno otransferase (ALT) measurementOrdered By: Bandar Stubbs on 12-26-2024 ALT [Catalytic activity/Vol] 99 U/L High <35 [facility] Serum or plasma albumin laurie urement (mass/volume)Ordered By: Bandar Stubbs on 12-26-2024 Albumin [Mass/Vol] 4.2 g/dL 3.5-5.0 [facility] Serum or plasma albumin/glob ulin mass ratioOrdered By: Bandar Stubbs on 12-26-2024 Albumin/Globulin [Mass ratio] 1.8 {ratio} 0.9-2.4 [facility] Serum or plasma alkaline geoffrey sphatase measurementOrdered By: Bandar Stubbs on 12-26-2024 ALP [Catalytic activity/Vol] 81 U/L 35-104 [facility] Serum or plasma calcium laurie urement (mass/volume)Ordered By: Bandar Stubbs on 12-26-2024 Calcium [Mass/Vol] 9.7 mg/dL 7.6-11.0 [facility] Serum or plasma urea nitroge n measurement (mass/volume)Ordered By: Bandar Stubbs on 12-26-2024 Urea nitrogen [Mass/Vol] 11 mg/dL 4-19 [facility] Sodium levelOrdered By: Arlette Stubbs on 12-26-2024 Sodium [Moles/Vol] 141 mmol/L 133-145 [facility] Total proteinOrdered By: Fabio Stubbs on 12-26-2024 Protein [Mass/Vol] 6.6 g/dL 5.9-8.4 [facility] White blood cell (WBC) count Ordered By: Bandar Stubbs on 12-26-2024 WBC (Bld) [#/Vol] 3.9 10*3/uL Low 4.4-11.0 [facility] CBC W/Diff, Automatedon 12-04 PATH REV Reviewed Normal [facility] Comment on above: Result Comment: SEE REPORT IN PATIENT'S EMR AMENDED REPORT 12/25/24 1110 PATH REV previously reported as: October Performed By: #### L 500.4050, L501.5200, L100.0100 ####[facility] [address] [place], [place], [id number] Pelvic w/ Transvaginalon Pelvic w/ Transvaginal Normal [facility] Abdomen Limitedon 12-20-2024 Abdomen Limited Normal [facility] CEA Serial Monitoron 025 CEA 1.9 ng/mL Normal 0.0-4.7 [facility] Comment on above: Result Comment: Nons mokers <3.9 Smokers <5.6[employer] Electrochemiluminescence Immunoassay(ECLIA)Values obtained with different assay methods or kitscannot be used interchangeably. Results cannot beinterpreted as absolute evidence of the presence orabsence of malignant disease. Performed By: #### L 3100.5000, L3100.2275 ####[facility] [address] [place], [place], [id number] Cancer Antigen 125on 025 CA 125 11.7 U/mL Normal 0.0-38.1 [facility] Comment on above: Result Comment: [employer] Electrochemiluminescence Immunoassay(ECLIA)Values obtained with different assay methods or kits cannotbe used interchangeably. Results cannot be interpreted asabsolute evidence of the presence or absence of malignantdisease.Performed at: [facility] [id number] Director: Ga Coronado PhD, Phone: [phone] Performed By: #### L 3100.5000, L3100.2275 ####[facility] [address] [place], [place], [id number] Absolute lymphocyte countOrd ered By: [facility] on 12-19-2024 Lymphocytes Auto (Unsp spec) [#/Vol] 1.53 10*3/uL 0.83-4.51 [facility] Absolute neutrophil countOrd ered By: [facility] St[facility] on 12-19-2024 Neutrophils (Bld) [#/Vol] 7.9 10*3/uL High 2.0-7.7 [facility] Anion gap in Serum or Plasma Ordered By: [facility] on 12-19-2024 Anion gap [Moles/Vol] 12 mmol/L 5-15 [facility] Automated lymphocyte count a s percentage of total leukocytesOrdered By: [facility] on 12-19-2024 Lymphocytes/100 WBC Auto (Unsp spec) 14.3 % Low 19-41 [facility] BUN/creatinine ratioOrdered By: [facility] on 12-19-2024 Urea nitrogen/Creatinine [Mass ratio] 16.0 mg/mg 10-20 [facility] Basophil percentageOrdered B y: [facility] Stubbs on 12-19-2024 Basophils/100 WBC (Bld) 0.9 % 0- [facility] Bilirubin, totalOrdered By: [facility] on 12-19-2024 Bilirubin [Mass/Vol] 0.28 mg/dL 0.00-1.30 [facility] CBC W/Diff, Automatedon 12-03 Absolute Lymph 1.53 X10 3/uL Normal 0.83-4.51 [facility] Comment on above: Performed By: #### L 500.4050, L501.5200, L100.0100 ####[facility] [address] [place], [place], [id number] Absolute Neut 7.9 X10 3/uL High 2.0-7.7 [facility] Comment on above: Performed By: #### L 500.4050, L501.5200, L100.0100 ####[facility] [address] [place], [address] Basophils/100 WBC (Bld) 0.9 % Normal 0-1 [facility] Comment on above: Performed By: #### L 500.4050, L501.5200, L100.0100 ####[facility] [address] [place], [address] Eosinophils/100 WBC (Bld) 0.7 % Normal 0-5 [facility] Comment on above: Performed By: #### L 500.4050, L501.5200, L100.0100 ####[facility] [address] [place], [address] Erythrocyte distribution width (RBC) [Ratio] 16.4 % High 11.6-14.6 [facility] Comment on above: Performed By: #### L 500.4050, L501.5200, L100.0100 ####[facility] [address] [place], [address] Hematocrit (Bld) [Volume fraction] 35.1 % Low 37-47 [facility] Comment on above: Performed By: #### L 500.4050, L501.5200, L100.0100 ####[facility] [address] [place], [address] Hemoglobin (Bld) [Mass/Vol] 11.8 g/dL Low 12.0-15.0 [facility] Comment on above: Performed By: #### L 500.4050, L501.5200, L100.0100 ####[facility] [address] [place], [address] IG% 3.400 High 0.0-0.9 [facility] Comment on above: Result Comment: IG% - Immature Granulocytes (promyelocytes, myelocytes andmetamyelocytes) > 1% indicates that a LEFT SHIFT is Present. Performed By: #### L 500.4050, L501.5200, L100.0100 ####[facility] [address] [place], [address] Lymphocytes/100 WBC (Bld) 14.3 % Low 19-41 [facility] Comment on above: Performed By: #### L 500.4050, L501.5200, L100.0100 ####[facility] [address] [place], [address] MCH (RBC) [Entitic mass] 30.2 pg Normal 27.0-32.0 [facility] Comment on above: Performed By: #### L 500.4050, L501.5200, L100.0100 ####[facility] [address] [place], [address] MCHC (RBC) [Mass/Vol] 33.6 g/dL Normal 32-36 [facility] Comment on above: Performed By: #### L 500.4050, L501.5200, L100.0100 ####[facility] [address] [place], [address] MCV (RBC) [Entitic vol] 89.8 fL Normal 81-99 [facility] Comment on above: Performed By: #### L 500.4050, L501.5200, L100.0100 ####[facility] [address] [place], [address] Monocytes/100 WBC (Bld) 6.9 % Normal 0-10 [facility] Comment on above: Performed By: #### L 500.4050, L501.5200, L100.0100 ####[facility] [address] [place], [address] Neutrophils/100 WBC (Bld) 73.8 % High 47-70 [facility] Comment on above: Performed By: #### L 500.4050, L501.5200, L100.0100 ####[facility] [address] [place], [address] Nucleated RBC (Bld) [#/Vol] 0 10*3/uL Normal 0-5 [facility] Comment on above: Performed By: #### L 500.4050, L501.5200, L100.0100 ####[facility] [address] [place], [address] Platelet mean volume (Bld) [Entitic vol] 10.2 fL Normal 6.2-12.0 [facility] Comment on above: Performed By: #### L 500.4050, L501.5200, L100.0100 ####[facility] [address] [place], [address] Platelets (Bld) [#/Vol] 162 10*3/uL Normal 150-450 [facility] Comment on above: Performed By: #### L 500.4050, L501.5200, L100.0100 ####[facility] [address] [place], [address] RBC (Bld) [#/Vol] 3.91 10*6/uL Low 4.2-5.4 [facility] Comment on above: Performed By: #### L 500.4050, L501.5200, L100.0100 ####[facility] [address] [place], [address] RDW SD 53.0 fl High 35.1-43.9 [facility] Comment on above: Performed By: #### L 500.4050, L501.5200, L100.0100 ####[facility] [address] [place], [address] WBC (Bld) [#/Vol] 10.7 10*3/uL Normal 4.4-11.0 [facility] Comment on above: Performed By: #### L 500.4050, L501.5200, L100.0100 ####[facility] [address] [place], [address] Cancer antigen 125 (CA-125) measurementOrdered By: Jennifer Duenas on 12-19-2024 Cancer antigen 125 (CA-125) measurement 11.7 U/mL 0.0-38.1 [facility] Comment on above: [employer] El ectrochemiluminescence Immunoassay(ECLIA)Values obtained with different assay methods or kits cannotbe used interchangeably. Results cannot be interpreted asabsolute evidence of the presence or absence of malignantdisease.Performed at: [facility] [id number] Director: Ga Coronado PhD, Phone: [phone] Carbon dioxide, total [Moles /volume] in Central venous bloodOrdered By: Bandar Stubbs on 12-19-2024 CO2 [Moles/Vol] 23.5 mmol/L 21.0-32.0 [facility] Chloride assayOrdered By: Deven Stubbs on 12-19-2024 Chloride [Moles/Vol] 106 mmol/L 98-108 [facility] Comprehensive Metabolic Prof ilon 12-19-2024 Albumin [Mass/Vol] 4.3 g/dL Normal 3.5-5.0 [facility] Comment on above: Performed By: #### L 500.4050, L501.5200, L100.0100 ####[facility] [address] [place], [address] Albumin/Globulin [Mass ratio] 1.7 {ratio} Normal 0.9-2.4 [facility] Comment on above: Performed By: #### L 500.4050, L501.5200, L100.0100 ####[facility] [address] [place], [address] ALK PHOS 120 U/L High 35-104 [facility] Comment on above: Performed By: #### L 500.4050, L501.5200, L100.0100 ####[facility] [address] [place], [address] ALT [Catalytic activity/Vol] 179 U/L High <=34 [facility] Comment on above: Performed By: #### L 500.4050, L501.5200, L100.0100 ####[facility] [address] [place], [address] AST [Catalytic activity/Vol] 113 U/L High <=31 [facility] Comment on above: Performed By: #### L 500.4050, L501.5200, L100.0100 ####[facility] [address] [place], [address] Bilirubin [Mass/Vol] 0.28 mg/dL Normal 0.00-1.30 [facility] Comment on above: Performed By: #### L 500.4050, L501.5200, L100.0100 ####[facility] [address] [place], [address] BUN/CRE 16.0 RATIO Normal 10-20 [facility] Comment on above: Performed By: #### L 500.4050, L501.5200, L100.0100 ####[facility] [address] [place], [address] Calcium [Mass/Vol] 9.5 mg/dL Normal 7.6-11.0 [facility] Comment on above: Performed By: #### L 500.4050, L501.5200, L100.0100 ####[facility] [address] [place], [address] Chloride [Moles/Vol] 106 mmol/L Normal 98-108 [facility] Comment on above: Performed By: #### L 500.4050, L501.5200, L100.0100 ####[facility] [address] [place], [address] CO2 [Moles/Vol] 23.5 mmol/L Normal 21.0-32.0 [facility] Comment on above: Performed By: #### L 500.4050, L501.5200, L100.0100 ####[facility] [address] [place], [address] Creatinine [Mass/Vol] 0.52 mg/dL Low 0.70-1.20 [facility] Comment on above: Performed By: #### L 500.4050, L501.5200, L100.0100 ####[facility] [address] [place], [address] ECRCL 136.77 ml/min Normal 50-250 [facility] Comment on above: Performed By: #### L 500.4050, L501.5200, L100.0100 ####[facility] [address] [place], [address] GAP 12 Normal 5-15 [facility] Comment on above: Performed By: #### L 500.4050, L501.5200, L100.0100 ####[facility] [address] [place], [address] GFR/1.73 sq M.predicted among non-blacks MDRD (S/P/Bld) [Vol rate/Area] 114 mL/min/{1.73_m2} Normal >60 [facility] Comment on above: Result Comment: mL/m in/1.73m2 CKD-EPI Creatinine Equation (2020) Performed By: #### L 500.4050, L501.5200, L100.0100 ####[facility] [address] [place], [address] Globulin (S) [Mass/Vol] 2.5 g/dL Normal 2.2-4.2 [facility] Comment on above: Performed By: #### L 500.4050, L501.5200, L100.0100 ####[facility] [address] [place], [address] Glucose [Mass/Vol] 98 mg/dL Normal 70-99 [facility] Comment on above: Performed By: #### L 500.4050, L501.5200, L100.0100 ####[facility] [address] [place], [address] Potassium [Moles/Vol] 4.2 mmol/L Normal 3.3-5.1 [facility] Comment on above: Performed By: #### L 500.4050, L501.5200, L100.0100 ####[facility] [address] [place], [address] Sodium [Moles/Vol] 141 mmol/L Normal 133-145 [facility] Comment on above: Performed By: #### L 500.4050, L501.5200, L100.0100 ####[facility] [address] [place], [address] T PROT 6.8 g/dL Normal 5.9-8.4 [facility] Comment on above: Performed By: #### L 500.4050, L501.5200, L100.0100 ####[facility] [address] [place], [address] Urea nitrogen [Mass/Vol] 8 mg/dL Normal 4-19 [facility] Comment on above: Performed By: #### L 500.4050, L501.5200, L100.0100 ####[facility] [address] [place], [address] Eosinophil percentageOrdered By: Bandar Stubbs on 12-19-2024 Eosinophils/100 WBC (Bld) 0.7 % 0-5 [facility] Erythrocyte distribution wid th ratioOrdered By: Bandar Stubbs on 12-19-2024 Erythrocyte distribution width (RBC) [Ratio] 16.4 % High 11.6-14.6 [facility] Erythrocyte distribution wid th standard deviationOrdered By: Bandar Stubbs on 12-19-2024 Erythrocyte distribution width (RBC) [Ratio] 53.0 fl High 35.1-43.9 [facility] Glomerular filtration rate ( GFR) estimation/1.73 sq m using serum, plasma, or whole bOrdered By: Bandar Stubbs on 12-19-2024 GFR/1.73 sq M.predicted among non-blacks MDRD (S/P/Bld) [Vol rate/Area] 114 mL/min/{1.73_m2} >60 [facility] Comment on above: mL/min/1.73m2 CKD-EP I Creatinine Equation (2020) Hematocrit Auto (Bld) [Volum e fraction]Ordered By: Bandar Stubbs on 12-19-2024 Hematocrit (Bld) [Volume fraction] 35.1 % Low 37-47 [facility] Hemoglobin measurementOrdere d By: Bandar Stubbs on 12-19-2024 Hemoglobin (Bld) [Mass/Vol] 11.8 g/dL Low 12.0-15.0 [facility] Immature granulocytes/100 WB C Auto (Bld)Ordered By: Bandar Stubbs on 12-19-2024 Immature granulocytes/100 WBC (Bld) 3.400 % High 0.0-0.9 [facility] Comment on above: IG% - Immature Granu locytes (promyelocytes, myelocytes and metamyelocytes) > 1% indicates that a LEFT SHIFT is Present. Laboratory - Chemistry and C hemistry - challengeOrdered By: Bandar Stubbs on 12-19-2024 AST [Catalytic activity/Vol] 113 U/L High <32 [facility] MCV (mean corpuscular volume ) determinationOrdered By: [facility] on 12-19-2024 MCV (RBC) [Entitic vol] 89.8 fL 81-99 [facility] Magnesiumon 12-19-2024 Magnesium [Mass/Vol] 2.2 mg/dL Normal 1.5-2.2 [facility] Comment on above: Performed By: #### L 500.4050, L501.5200, L100.0100 ####[facility] [address] [place], [address] Magnesium measurement (mass/ volume)Ordered By: Bandar Stubbs on 12-19-2024 Magnesium (Unsp spec) [Mass/Vol] 2.2 mg/dL 1.5-2.2 [facility] Mean corpuscular hemoglobin (MCH) determinationOrdered By: Bandar Stubbs on 12-19-2024 MCH (RBC) [Entitic mass] 30.2 pg 27.0-32.0 [facility] Mean corpuscular hemoglobin concentration (MCHC) determinationOrdered By: Bandar Stubbs on 12-19-2024 MCHC (RBC) [Mass/Vol] 33.6 g/dL 32-36 [facility] Mean platelet volume determi nationOrdered By: Bandar Stubbs on 12-19-2024 Platelet mean volume (Bld) [Entitic vol] 10.2 fL 6.2-12.0 [facility] Monocyte percentageOrdered B y: Bandar Stubbs on 12-19-2024 Monocytes/100 WBC (Bld) 6.9 % 0-10 [facility] Neutrophil percentageOrdered By: [facility] on 12-19-2024 Neutrophils/100 WBC (Bld) 73.8 % High 47-70 [facility] Nucleated red blood cell per centageOrdered By: Bandar Stubbs on 12-19-2024 Nucleated RBC/100 WBC (Bld) [Ratio] 0 % 0-5 [facility] Oncology Visit Reporton 12-03 Oncology Visit Report Normal [facility] Platelet countOrdered By: Deven Stubbs on 12-19-2024 Platelets (Bld) [#/Vol] 162 10*3/uL 150-450 [facility] Potassium measurement (mass/ volume)Ordered By: Bandar Stubbs on 12-19-2024 Potassium (Unsp spec) [Mass/Vol] 4.2 mmol/L 3.3-5.1 [facility] RBC Auto (Bld) [#/Vol]Ordere d By: Bandar Stubbs on 12-19-2024 RBC (Bld) [#/Vol] 3.91 10*6/uL Low 4.2-5.4 [facility] Serum creatinine measurement (mass/volume)Ordered By: Bandar Stubbs on 12-19-2024 Creatinine [Mass/Vol] 0.52 mg/dL Low 0.70-1.20 [facility] Serum globulin measurementOr dered By: Bandar Stubbs on 12-19-2024 Globulin (S) [Mass/Vol] 2.5 g/dL 2.2-4.2 [facility] Serum glucose measurement (m ass/volume)Ordered By: Bandar Stubbs on 12-19-2024 Glucose [Mass/Vol] 98 mg/dL 70-99 [facility] Serum or plasma alanine moreno otransferase (ALT) measurementOrdered By: Bandar Stubbs on 12-19-2024 ALT [Catalytic activity/Vol] 179 U/L High <35 [facility] Serum or plasma albumin laurie urement (mass/volume)Ordered By: Bandar Stubbs on 12-19-2024 Albumin [Mass/Vol] 4.3 g/dL 3.5-5.0 [facility] Serum or plasma albumin/glob ulin mass ratioOrdered By: Bandar Stubbs on 12-19-2024 Albumin/Globulin [Mass ratio] 1.7 {ratio} 0.9-2.4 [facility] Serum or plasma alkaline geoffrey sphatase measurementOrdered By: [facility] on 12-19-2024 ALP [Catalytic activity/Vol] 120 U/L High 35-104 [facility] Serum or plasma calcium laurie urement (mass/volume)Ordered By: Bandar Stubbs on 12-19-2024 Calcium [Mass/Vol] 9.5 mg/dL 7.6-11.0 [facility] Serum or plasma carcinoembry onic antigen measurement (mass/volume)Ordered By: Jennifer Duenas on 12-19-2024 Carcinoembryonic Ag [Mass/Vol] 1.9 ng/mL 0.0-4.7 [facility] Comment on above: Nonsmokers <3.9 Smok ers <5.6[employer] Electrochemiluminescence Immunoassay(ECLIA)Values obtained with different assay methods or kitscannot be used interchangeably. Results cannot beinterpreted as absolute evidence of the presence orabsence of malignant disease. Serum or plasma urea nitroge n measurement (mass/volume)Ordered By: Bandar Stubbs on 12-19-2024 Urea nitrogen [Mass/Vol] 8 mg/dL 4-19 [facility] Sodium levelOrdered By: Arlette Stubbs on 12-19-2024 Sodium [Moles/Vol] 141 mmol/L 133-145 [facility] Total proteinOrdered By: Fabio Stubbs on 12-19-2024 Protein [Mass/Vol] 6.8 g/dL 5.9-8.4 [facility] White blood cell (WBC) count Ordered By: Bandar Stubbs on 12-19-2024 WBC (Bld) [#/Vol] 10.7 10*3/uL 4.4-11.0 [facility] Drag Down Office Visit Reporton 12-13-2024 Drag Down Office Visit Report Normal [facility] Absolute lymphocyte countOrd ered By: Bandar Stubbs on 12-04-2024 Lymphocytes Auto (Unsp spec) [#/Vol] 1.32 10*3/uL 0.83-4.51 [facility] Absolute neutrophil countOrd ered By: Bandar Stubbs on 12-04-2024 Neutrophils (Bld) [#/Vol] 4.3 10*3/uL 2.0-7.7 [facility] Anion gap in Serum or Plasma Ordered By: Bandar Stubbs on 12-04-2024 Anion gap [Moles/Vol] 11 mmol/L 5-15 [facility] BUN/creatinine ratioOrdered By: Bandar Stubbs on 12-04-2024 Urea nitrogen/Creatinine [Mass ratio] 18.8 mg/mg 10-20 [facility] Bilirubin, totalOrdered By: Bandar Stubbs on 12-04-2024 Bilirubin [Mass/Vol] 0.20 mg/dL 0.00-1.30 [facility] Blood band neutrophil count as percentage of total leukocytesOrdered By: Bandar Stubbs on 12-04-2024 Band form neutrophils/100 WBC (Bld) 8 % High 0-5 [facility] Blood eosinophils/100 leukoc ytesOrdered By: Bandar Stubbs on 12-04-2024 Eosinophils/100 WBC (Bld) 1 % 0-5 [facility] Blood lymphocytes/100 leukoc ytesOrdered By: Bandar Stubbs on 12-04-2024 Lymphocytes/100 WBC (Bld) 20 % 19-41 [facility] Blood metamyelocytes/100 denise kocytesOrdered By: Bandar Stubbs on 12-04-2024 Metamyelocytes/100 WBC (Bld) 1 % 0-1 [facility] Blood monocytes/100 leukocyt esOrdered By: Bandar Stubbs on 12-04-2024 Monocytes/100 WBC (Bld) 12 % High 0-10 [facility] Blood promyelocytes/100 leuk ocytesOrdered By: Bandar Stubbs on 12-04-2024 Promyelocytes/100 WBC (Bld) 1 % High 0-0 [facility] Blood segmented neutrophils/ 100 leukocytesOrdered By: Bandar Stubbs on 12-04-2024 Segmented neutrophils/100 WBC (Bld) 57 % 47-70 [facility] Carbon dioxide, total [Moles /volume] in Central venous bloodOrdered By: Bandar Stubbs on 12-04-2024 CO2 [Moles/Vol] 26.8 mmol/L 21.0-32.0 [facility] Chloride assayOrdered By: Deven Stubbs on 12-04-2024 Chloride [Moles/Vol] 105 mmol/L 98-108 [facility] Comprehensive Metabolic Prof ilon 12-04-2024 Albumin [Mass/Vol] 4.3 g/dL Normal 3.5-5.0 [facility] Comment on above: Performed By: #### L 500.4050, L501.5200, L100.0100 ####[facility] [address] [place], [address] Albumin/Globulin [Mass ratio] 2.0 {ratio} Normal 0.9-2.4 [facility] Comment on above: Performed By: #### L 500.4050, L501.5200, L100.0100 ####[facility] [address] [place], [address] ALK PHOS 82 U/L Normal 35-104 [facility] Comment on above: Performed By: #### L 500.4050, L501.5200, L100.0100 ####[facility] [address] [place], [address] ALT [Catalytic activity/Vol] 18 U/L Normal <=34 [facility] Comment on above: Performed By: #### L 500.4050, L501.5200, L100.0100 ####[facility] [address] [place], [address] AST [Catalytic activity/Vol] 24 U/L Normal <=31 [facility] Comment on above: Performed By: #### L 500.4050, L501.5200, L100.0100 ####[facility] [address] [place], [address] Bilirubin [Mass/Vol] 0.20 mg/dL Normal 0.00-1.30 [facility] Comment on above: Performed By: #### L 500.4050, L501.5200, L100.0100 ####[facility] [address] [place], [address] BUN/CRE 18.8 RATIO Normal 10-20 [facility] Comment on above: Performed By: #### L 500.4050, L501.5200, L100.0100 ####[facility] [address] [place], [address] Calcium [Mass/Vol] 9.6 mg/dL Normal 7.6-11.0 [facility] Comment on above: Performed By: #### L 500.4050, L501.5200, L100.0100 ####[facility] [address] [place], [address] Chloride [Moles/Vol] 105 mmol/L Normal 98-108 [facility] Comment on above: Performed By: #### L 500.4050, L501.5200, L100.0100 ####[facility] [address] [place], [address] CO2 [Moles/Vol] 26.8 mmol/L Normal 21.0-32.0 [facility] Comment on above: Performed By: #### L 500.4050, L501.5200, L100.0100 ####[facility] [address] [place], [address] Creatinine [Mass/Vol] 0.62 mg/dL Low 0.70-1.20 [facility] Comment on above: Performed By: #### L 500.4050, L501.5200, L100.0100 ####[facility] [address] [place], [address] ECRCL 114.71 ml/min Normal 50-250 [facility] Comment on above: Performed By: #### L 500.4050, L501.5200, L100.0100 ####[facility] [address] [place], [address] GAP 11 Normal 5-15 [facility] Comment on above: Performed By: #### L 500.4050, L501.5200, L100.0100 ####[facility] [address] [place], [address] GFR/1.73 sq M.predicted among non-blacks MDRD (S/P/Bld) [Vol rate/Area] 109 mL/min/{1.73_m2} Normal >60 [facility] Comment on above: Result Comment: mL/m in/1.73m2 CKD-EPI Creatinine Equation (2020) Performed By: #### L 500.4050, L501.5200, L100.0100 ####[facility] [address] [place], [address] Globulin (S) [Mass/Vol] 2.2 g/dL Normal 2.2-4.2 [facility] Comment on above: Performed By: #### L 500.4050, L501.5200, L100.0100 ####[facility] [address] [place], [address] Glucose [Mass/Vol] 88 mg/dL Normal 70-99 [facility] Comment on above: Performed By: #### L 500.4050, L501.5200, L100.0100 ####[facility] [address] [place], [address] Potassium [Moles/Vol] 4.2 mmol/L Normal 3.3-5.1 [facility] Comment on above: Performed By: #### L 500.4050, L501.5200, L100.0100 ####[facility] [address] [place], [address] Sodium [Moles/Vol] 143 mmol/L Normal 133-145 [facility] Comment on above: Performed By: #### L 500.4050, L501.5200, L100.0100 ####[facility] [address] [place], [address] T PROT 6.4 g/dL Normal 5.9-8.4 [facility] Comment on above: Performed By: #### L 500.4050, L501.5200, L100.0100 ####[facility] [address] [place], [address] Urea nitrogen [Mass/Vol] 12 mg/dL Normal 4-19 [facility] Comment on above: Performed By: #### L 500.4050, L501.5200, L100.0100 ####[facility] [address] [place], [address] Erythrocyte distribution wid th ratioOrdered By: Bandar Stubbs on 12-04-2024 Erythrocyte distribution width (RBC) [Ratio] 16.2 % High 11.6-14.6 [facility] Erythrocyte distribution wid th standard deviationOrdered By: Bandar Stubbs on 12-04-2024 Erythrocyte distribution width (RBC) [Ratio] 50.6 fl High 35.1-43.9 [facility] Erythrocyte morphology asses smentOrdered By: Bandar Stubbs on 12-04-2024 RBC morphology finding Nom (Bld) N CHROM NORMAL NORM C&C [facility] Ferritinon 12-04-2024 Ferritin [Mass/Vol] 137 ng/mL Normal 22-378 [facility] Comment on above: Performed By: #### L 503.6550, L503.6030 ####[facility] [address] [place], [place], [id number] Glomerular filtration rate ( GFR) estimation/1.73 sq m using serum, plasma, or whole bOrdered By: Bandar Stubbs on 12-04-2024 GFR/1.73 sq M.predicted among non-blacks MDRD (S/P/Bld) [Vol rate/Area] 109 mL/min/{1.73_m2} >60 [facility] Comment on above: mL/min/1.73m2 CKD-EP I Creatinine Equation (2020) Hematocrit Auto (Bld) [Volum e fraction]Ordered By: Bandar Stubbs on 12-04-2024 Hematocrit (Bld) [Volume fraction] 35.1 % Low 37-47 [facility] Hemoglobin measurementOrdere d By: Bandar Stubbs on 12-04-2024 Hemoglobin (Bld) [Mass/Vol] 11.9 g/dL Low 12.0-15.0 [facility] Iron measurement (mass/mass) Ordered By: Alyssa Gillespie on 12-04-2024 Iron (Unsp spec) [Mass/Mass] 84 ug/dL 50-170 [facility] Iron+Iron Binding Capacityon 12-04-2024 Iron [Mass/Vol] 84 ug/dL Normal 50-170 [facility] Comment on above: Performed By: #### L 503.6550, L503.6030 ####[facility] [address] [place], [address] IRON SATURATION 32.0 Normal 13-59 [facility] Comment on above: Performed By: #### L 503.6550, L503.6030 ####[facility] [address] [place], [address] TIBC 258 ug/dL Normal 250-450 [facility] Comment on above: Performed By: #### L 503.6550, L503.6030 ####[facility] [address] [place], [address] UIBC 174 ug/dL Low 228-428 [facility] Comment on above: Performed By: #### L 503.6550, L548.6030 ####[facility] [address] [place], [address] Laboratory - Chemistry and C hemistry - challengeOrdered By: Bandar Stubbs on 12-04-2024 AST [Catalytic activity/Vol] 24 U/L <32 [facility] Laboratory - Hematology and Cell countsOrdered By: Bandar Stubbs on 12-04-2024 Anisocytosis Ql (Bld) 1+ [facility] MCV (mean corpuscular volume ) determinationOrdered By: Bandar Stubbs on 12-04-2024 MCV (RBC) [Entitic vol] 88.2 fL 81-99 [facility] Magnesiumon 12-04-2024 Magnesium [Mass/Vol] 2.3 mg/dL High 1.5-2.2 [facility] Comment on above: Performed By: #### L 500.4050, L501.5200, L100.0100 ####[facility] [address] [place], [address] Magnesium measurement (mass/ volume)Ordered By: Bandar Stubbs on 12-04-2024 Magnesium (Unsp spec) [Mass/Vol] 2.3 mg/dL High 1.5-2.2 [facility] Mean corpuscular hemoglobin (MCH) determinationOrdered By: Bandar Stubbs on 12-04-2024 MCH (RBC) [Entitic mass] 29.9 pg 27.0-32.0 [facility] Mean corpuscular hemoglobin concentration (MCHC) determinationOrdered By: Bandar Stubbs on 12-04-2024 MCHC (RBC) [Mass/Vol] 33.9 g/dL 32-36 [facility] Mean platelet volume determi nationOrdered By: Bandar Stubbs on 12-04-2024 Platelet mean volume (Bld) [Entitic vol] 9.9 fL 6.2-12.0 [facility] No Panel InformationOrdered By: Alyssa Gillespie on 12-04-2024 Unsaturated Iron Binding Capacity 174 ug/dL Low 228-428 [facility] Oncology Visit Reporton Oncology Visit Report Normal [facility] Platelet countOrdered By: Deven Stubbs on 12-04-2024 Platelets (Bld) [#/Vol] 145 10*3/uL Low 150-450 [facility] Platelet estimateOrdered By: Bandar Stubbs on 12-04-2024 Platelets LM Ql (Bld) ADEQUATE ADEQ [facility] Potassium measurement (mass/ volume)Ordered By: Bandar Stubbs on 12-04-2024 Potassium (Unsp spec) [Mass/Vol] 4.2 mmol/L 3.3-5.1 [facility] RBC Auto (Bld) [#/Vol]Ordere d By: Bandar Stubbs on 12-04-2024 RBC (Bld) [#/Vol] 3.98 10*6/uL Low 4.2-5.4 [facility] Review by pathologistOrdered By: Bandar Stubbs on 12-04-2024 Pathologist review Dayo (Unsp spec) [Interp] Silvana moya [facility] Pathologist review Dayo (Unsp spec) [Interp] Reviewed [facility] Comment on above: Previous reported re sult: Silvana moya Edited by: VERN on 12/25/24:1110SEE REPORT IN PATIENT'S EMR AMENDED REPORT 12/25/24 1110 PATH REV previously reported as: Silvana moya Serum creatinine measurement (mass/volume)Ordered By: Bandar Stubbs on 12-04-2024 Creatinine [Mass/Vol] 0.62 mg/dL Low 0.70-1.20 [facility] Serum globulin measurementOr dered By: Bandar Stubbs on 12-04-2024 Globulin (S) [Mass/Vol] 2.2 g/dL 2.2-4.2 [facility] Serum glucose measurement (m ass/volume)Ordered By: Bandar Stubbs on 12-04-2024 Glucose [Mass/Vol] 88 mg/dL 70-99 [facility] Serum or plasma alanine moreno otransferase (ALT) measurementOrdered By: Bandar Stubbs on 12-04-2024 ALT [Catalytic activity/Vol] 18 U/L <35 [facility] Serum or plasma albumin laurie urement (mass/volume)Ordered By: Bandar Stubbs on 12-04-2024 Albumin [Mass/Vol] 4.3 g/dL 3.5-5.0 [facility] Serum or plasma albumin/glob ulin mass ratioOrdered By: Bandar Stubbs on 12-04-2024 Albumin/Globulin [Mass ratio] 2.0 {ratio} 0.9-2.4 [facility] Serum or plasma alkaline geoffrey sphatase measurementOrdered By: Bandar Stubbs on 12-04-2024 ALP [Catalytic activity/Vol] 82 U/L 35-104 [facility] Serum or plasma calcium laurie urement (mass/volume)Ordered By: Bandar Stubbs on 12-04-2024 Calcium [Mass/Vol] 9.6 mg/dL 7.6-11.0 [facility] Serum or plasma ferritin yimi surement (mass/volume)Ordered By: Alyssa Gillespie on 12-04-2024 Ferritin [Mass/Vol] 137 ng/mL 22-378 [facility] Serum or plasma iron saturat ion measurement (mass fraction)Ordered By: Alyssa Gillespie on 12-04-2024 Iron saturation [Mass fraction] 32.0 % 13-59 [facility] Serum or plasma urea nitroge n measurement (mass/volume)Ordered By: Bandar Stubbs on 12-04-2024 Urea nitrogen [Mass/Vol] 12 mg/dL 4- [facility] Sodium levelOrdered By: Arlette imani Enoc on 12-04-2024 Sodium [Moles/Vol] 143 mmol/L 133-145 [facility] Total cell countOrdered By: Bandar Stubbs on 12-04-2024 Cells counted Molgen (Bld/Tiss) [#] 100 MANUAL DIFF [facility] Total proteinOrdered By: Fabio radha Enoc on 12-04-2024 Protein [Mass/Vol] 6.4 g/dL 5.9-8.4 [facility] White blood cell (WBC) count Ordered By: Bandar Stubbs on 12-04-2024 WBC (Bld) [#/Vol] 6.6 10*3/uL 4.4-11.0 [facility] Absolute lymphocyte countOrd ered By: Bandar Stubbs on 11-21-2024 Lymphocytes Auto (Unsp spec) [#/Vol] 1.40 10*3/uL 0.83-4.51 [facility] Absolute neutrophil countOrd ered By: Bandar Stubbs on 11-21-2024 Neutrophils (Bld) [#/Vol] 3.9 10*3/uL 2.0-7.7 [facility] Anion gap in Serum or Plasma Ordered By: Bandar Stubbs on 11-21-2024 Anion gap [Moles/Vol] 11 mmol/L 5-15 [facility] BUN/creatinine ratioOrdered By: Bandar Stubbs on 11-21-2024 Urea nitrogen/Creatinine [Mass ratio] 16.8 mg/mg 10-20 [facility] Bilirubin, totalOrdered By: Bandar Stubbs on 11-21-2024 Bilirubin [Mass/Vol] 0.18 mg/dL 0.00-1.30 [facility] Blood band neutrophil count as percentage of total leukocytesOrdered By: Bandar Stubbs on 11-21-2024 Band form neutrophils/100 WBC (Bld) 8 % High 0-5 [facility] Blood basophils/100 leukocyt esOrdered By: Bandar Stubbs on 11-21-2024 Basophils/100 WBC (Bld) 1 % 0-1 [facility] Blood lymphocytes/100 leukoc ytesOrdered By: Bandar Stubbs on 11-21-2024 Lymphocytes/100 WBC (Bld) 20 % 19-41 [facility] Blood metamyelocytes/100 denise kocytesOrdered By: Bandar Stubbs on 11-21-2024 Metamyelocytes/100 WBC (Bld) 2 % High 0-1 [facility] Blood monocytes/100 leukocyt esOrdered By: [facility] St[facility] on 11-21-2024 Monocytes/100 WBC (Bld) 10 % 0-10 [facility] Blood segmented neutrophils/ 100 leukocytesOrdered By: [facility] Hospital[facility]ani Stubbs on 11-21-2024 Segmented neutrophils/100 WBC (Bld) 58 % 47-70 [facility] CBC W/Diff, Automatedon 11-03 Absolute Lymph 1.40 X10 3/uL Normal 0.83-4.51 [facility] Comment on above: Performed By: #### L 100.0100, L500.4050 ####[facility] [address] [place], [address] Absolute Neut 3.9 X10 3/uL Normal 2.0-7.7 [facility] Comment on above: Performed By: #### L 100.0100, L500.4050 ####[facility] [address] [place], [address] BAND 8 High 0-5 [facility] Comment on above: Performed By: #### L 100.0100, L500.4050 ####[facility] [address] [place], [address] BASOPHIL 1 Normal 0-1 [facility] Comment on above: Performed By: #### L 100.0100, L500.4050 ####[facility] [address] [place], [address] Lymphocytes (Bld) [#/Vol] 20 10*3/uL Normal 19-41 [facility] Comment on above: Performed By: #### L 100.0100, L500.4050 ####[facility] [address] [place], [address] META 2 High 0-1 [facility] Comment on above: Performed By: #### L 100.0100, L500.4050 ####[facility] [address] [place], [address] Metamyelocytes/100 WBC (Bld) 1 % High 0-0 [facility] Comment on above: Performed By: #### L 100.0100, L500.4050 ####[facility] [address] [place], [address] MONOCYTE 10 Normal 0-10 [facility] Comment on above: Performed By: #### L 100.0100, L500.4050 ####[facility] [address] [place], [address] PLT EST ADEQUATE Normal ADEQ [facility] Comment on above: Performed By: #### L 100.0100, L500.4050 ####[facility] [address] [place], [address] RED CELL MORPH NORM C+C Normal NORM C C [facility] Comment on above: Performed By: #### L 100.0100, L500.4050 ####[facility] [address] [place], [address] SEGS 58 Normal 47-70 [facility] Comment on above: Performed By: #### L 100.0100, L500.4050 ####[facility] [address] [place], [address] TOTAL CELLS 100 Normal MANUAL DIFF [facility] Comment on above: Performed By: #### L 100.0100, L500.4050 ####[facility] [address] [place], [address] Carbon dioxide, total [Moles /volume] in Central venous bloodOrdered By: Bandar Stubbs on 11-21-2024 CO2 [Moles/Vol] 25.3 mmol/L 21.0-32.0 [facility] Chloride assayOrdered By: Deven kayla Enoc on 11-21-2024 Chloride [Moles/Vol] 105 mmol/L 98-108 [facility] Comprehensive Metabolic Prof ilon 11-21-2024 Albumin [Mass/Vol] 4.1 g/dL Normal 3.5-5.0 [facility] Comment on above: Performed By: #### L 100.0100, L500.4050 ####[facility] [address] [place], [address] Albumin/Globulin [Mass ratio] 1.7 {ratio} Normal 0.9-2.4 [facility] Comment on above: Performed By: #### L 100.0100, L500.4050 ####[facility] [address] [place], [address] ALK PHOS 78 U/L Normal 35-104 [facility] Comment on above: Performed By: #### L 100.0100, L500.4050 ####[facility] [address] [place], [address] ALT [Catalytic activity/Vol] 24 U/L Normal <=34 [facility] Comment on above: Performed By: #### L 100.0100, L500.4050 ####[facility] [address] [place], [address] AST [Catalytic activity/Vol] 29 U/L Normal <=31 [facility] Comment on above: Performed By: #### L 100.0100, L500.4050 ####[facility] [address] [place], [address] Bilirubin [Mass/Vol] 0.18 mg/dL Normal 0.00-1.30 [facility] Comment on above: Performed By: #### L 100.0100, L500.4050 ####[facility] [address] [place], [address] BUN/CRE 16.8 RATIO Normal 10-20 [facility] Comment on above: Performed By: #### L 100.0100, L500.4050 ####[facility] [address] [place], [address] Calcium [Mass/Vol] 9.3 mg/dL Normal 7.6-11.0 [facility] Comment on above: Performed By: #### L 100.0100, L500.4050 ####[facility] [address] [place], [address] Chloride [Moles/Vol] 105 mmol/L Normal 98-108 [facility] Comment on above: Performed By: #### L 100.0100, L500.4050 ####[facility] [address] [place], [address] CO2 [Moles/Vol] 25.3 mmol/L Normal 21.0-32.0 [facility] Comment on above: Performed By: #### L 100.0100, L500.4050 ####[facility] [address] [place], [address] Creatinine [Mass/Vol] 0.60 mg/dL Low 0.70-1.20 [facility] Comment on above: Performed By: #### L 100.0100, L500.4050 ####[facility] [address] [place], [address] ECRCL 118.53 ml/min Normal 50-250 [facility] Comment on above: Performed By: #### L 100.0100, L500.4050 ####[facility] [address] [place], [address] GAP 11 Normal 5-15 [facility] Comment on above: Performed By: #### L 100.0100, L500.4050 ####[facility] [address] [place], [address] GFR/1.73 sq M.predicted among non-blacks MDRD (S/P/Bld) [Vol rate/Area] 110 mL/min/{1.73_m2} Normal >60 [facility] Comment on above: Result Comment: mL/m in/1.73m2 CKD-EPI Creatinine Equation (2020) Performed By: #### L 100.0100, L500.4050 ####[facility] [address] [place], [address] Globulin (S) [Mass/Vol] 2.5 g/dL Normal 2.2-4.2 [facility] Comment on above: Performed By: #### L 100.0100, L500.4050 ####[facility] [address] [place], [address] Glucose [Mass/Vol] 110 mg/dL High 70-99 [facility] Comment on above: Performed By: #### L 100.0100, L500.4050 ####[facility] [address] [place], [address] Potassium [Moles/Vol] 4.3 mmol/L Normal 3.3-5.1 [facility] Comment on above: Performed By: #### L 100.0100, L500.4050 ####[facility] [address] [place], [address] Sodium [Moles/Vol] 141 mmol/L Normal 133-145 [facility] Comment on above: Performed By: #### L 100.0100, L500.4050 ####[facility] [address] [place], [address] T PROT 6.6 g/dL Normal 5.9-8.4 [facility] Comment on above: Performed By: #### L 100.0100, L500.4050 ####[facility] [address] [place], [address] Urea nitrogen [Mass/Vol] 10 mg/dL Normal - [facility] Comment on above: Performed By: #### L 100.0100, L500.4050 ####[facility] [address] [place], [address] Erythrocyte distribution wid th ratioOrdered By: Bandar Stubbs on 11-21-2024 Erythrocyte distribution width (RBC) [Ratio] 15.4 % High 11.6-14.6 [facility] Erythrocyte distribution wid th standard deviationOrdered By: Bandar Stubbs on 11-21-2024 Erythrocyte distribution width (RBC) [Ratio] 46.1 fl High 35.1-43.9 [facility] Erythrocyte morphology asses smentOrdered By: Bandar Stubbs on 11-21-2024 RBC morphology finding Nom (Bld) NORM C+C NORMAL NORM C&C [facility] Glomerular filtration rate ( GFR) estimation/1.73 sq m using serum, plasma, or whole bOrdered By: Bandar Stubbs on 11-21-2024 GFR/1.73 sq M.predicted among non-blacks MDRD (S/P/Bld) [Vol rate/Area] 110 mL/min/{1.73_m2} >60 [facility] Comment on above: mL/min/1.73m2 CKD-EP I Creatinine Equation (2020) Hematocrit Auto (Bld) [Volum e fraction]Ordered By: Bandar Stubbs on 11-21-2024 Hematocrit (Bld) [Volume fraction] 35.7 % Low 37-47 [facility] Hemoglobin measurementOrdere d By: Bandar Stubbs on 11-21-2024 Hemoglobin (Bld) [Mass/Vol] 12.0 g/dL 12.0-15.0 [facility] Laboratory - Chemistry and C hemistry - challengeOrdered By: Bandar Stubbs on 11-21-2024 AST [Catalytic activity/Vol] 29 U/L <32 [facility] MCV (mean corpuscular volume ) determinationOrdered By: Bandar Stubbs on 11-21-2024 MCV (RBC) [Entitic vol] 86.4 fL 81-99 [facility] Mean corpuscular hemoglobin (MCH) determinationOrdered By: Bandar Stubbs on 11-21-2024 MCH (RBC) [Entitic mass] 29.1 pg 27.0-32.0 [facility] Mean corpuscular hemoglobin concentration (MCHC) determinationOrdered By: Bandar Stubbs on 11-21-2024 MCHC (RBC) [Mass/Vol] 33.6 g/dL 32-36 [facility] Mean platelet volume determi nationOrdered By: Bandar Stubbs on 11-21-2024 Platelet mean volume (Bld) [Entitic vol] 9.7 fL 6.2-12.0 [facility] Myelocyte %Ordered By: Shanta Stubbs on 11-21-2024 Myelocytes/100 WBC (Bld) 1 % High 0-0 [facility] Oncology Visit Reporton 11-03 Oncology Visit Report Normal [facility] Platelet countOrdered By: Deven Stubbs on 11-21-2024 Platelets (Bld) [#/Vol] 167 10*3/uL 150-450 [facility] Platelet estimateOrdered By: Bandar Stubbs on 11-21-2024 Platelets LM Ql (Bld) ADEQUATE ADEQ [facility] Potassium measurement (mass/ volume)Ordered By: Bandar Stubbs on 11-21-2024 Potassium (Unsp spec) [Mass/Vol] 4.3 mmol/L 3.3-5.1 [facility] RBC Auto (Bld) [#/Vol]Ordere d By: Bandar Stubbs on 11-21-2024 RBC (Bld) [#/Vol] 4.13 10*6/uL Low 4.2-5.4 [facility] Serum creatinine measurement (mass/volume)Ordered By: Bandar Stubbs on 11-21-2024 Creatinine [Mass/Vol] 0.60 mg/dL Low 0.70-1.20 [facility] Serum globulin measurementOr dered By: Bandar Stubbs on 11-21-2024 Globulin (S) [Mass/Vol] 2.5 g/dL 2.2-4.2 [facility] Serum glucose measurement (m ass/volume)Ordered By: Bandar Stubbs on 11-21-2024 Glucose [Mass/Vol] 110 mg/dL High 70-99 [facility] Serum or plasma alanine moreno otransferase (ALT) measurementOrdered By: Bandar Stubbs on 11-21-2024 ALT [Catalytic activity/Vol] 24 U/L <35 [facility] Serum or plasma albumin laurie urement (mass/volume)Ordered By: Badnar Stubbs on 11-21-2024 Albumin [Mass/Vol] 4.1 g/dL 3.5-5.0 [facility] Serum or plasma albumin/glob ulin mass ratioOrdered By: Bandar Stubbs on 11-21-2024 Albumin/Globulin [Mass ratio] 1.7 {ratio} 0.9-2.4 [facility] Serum or plasma alkaline geoffrey sphatase measurementOrdered By: Bandar Stubbs on 11-21-2024 ALP [Catalytic activity/Vol] 78 U/L 35-104 [facility] Serum or plasma calcium laurie urement (mass/volume)Ordered By: Bandar Stubbs on 11-21-2024 Calcium [Mass/Vol] 9.3 mg/dL 7.6-11.0 [facility] Serum or plasma urea nitroge n measurement (mass/volume)Ordered By: Bandar Stubbs on 11-21-2024 Urea nitrogen [Mass/Vol] 10 mg/dL 4-19 [facility] Sodium levelOrdered By: Arlette Stubbs on 11-21-2024 Sodium [Moles/Vol] 141 mmol/L 133-145 [facility] Total cell countOrdered By: Bandar Stubbs on 11-21-2024 Cells counted Molgen (Bld/Tiss) [#] 100 MANUAL DIFF [facility] Total proteinOrdered By: Fabio Stubbs on 11-21-2024 Protein [Mass/Vol] 6.6 g/dL 5.9-8.4 [facility] White blood cell (WBC) count Ordered By: Bandar Stubbs on 11-21-2024 WBC (Bld) [#/Vol] 7.0 10*3/uL 4.4-11.0 [facility] Absolute lymphocyte countOrd ered By: Bandar Stubbs on 11-07-2024 Lymphocytes Auto (Unsp spec) [#/Vol] 1.84 10*3/uL 0.83-4.51 [facility] Absolute neutrophil countOrd ered By: Bandar Stubbs on 11-07-2024 Neutrophils (Bld) [#/Vol] 6.1 10*3/uL 2.0-7.7 [facility] Anion gap in Serum or Plasma Ordered By: Bandar Stubbs on 11-07-2024 Anion gap [Moles/Vol] 11 mmol/L 5-15 [facility] BUN/creatinine ratioOrdered By: Bandar Stubbs on 11-07-2024 Urea nitrogen/Creatinine [Mass ratio] 18.8 mg/mg 10-20 [facility] Bilirubin, totalOrdered By: Bandar Stubbs on 11-07-2024 Bilirubin [Mass/Vol] mg/dL 0.00-1.30 [facility] Blood band neutrophil count as percentage of total leukocytesOrdered By: Bandar Stubbs on 11-07-2024 Band form neutrophils/100 WBC (Bld) 3 % 0-5 [facility] Blood lymphocytes/100 leukoc ytesOrdered By: Bandar Stubbs on 11-07-2024 Lymphocytes/100 WBC (Bld) 21 % 19-41 [facility] Blood metamyelocytes/100 denise kocytesOrdered By: Bandar Stubbs on 11-07-2024 Metamyelocytes/100 WBC (Bld) 2 % High 0-1 [facility] Blood monocytes/100 leukocyt esOrdered By: Bandar Stubbs on 11-07-2024 Monocytes/100 WBC (Bld) 4 % 0-10 [facility] Blood polychromasia detectio n by light microscopyOrdered By: Bandar Stubbs on 11-07-2024 Polychromasia LM Ql (Bld) 1+ [facility] Blood promyelocytes/100 leuk ocytesOrdered By: Bandar Stubbs on 11-07-2024 Promyelocytes/100 WBC (Bld) 1 % High 0-0 [facility] Blood segmented neutrophils/ 100 leukocytesOrdered By: Bandar Stubbs on 11-07-2024 Segmented neutrophils/100 WBC (Bld) 67 % 47-70 [facility] CBC W/Diff, Automatedon Absolute Lymph 1.84 X10 3/uL Normal 0.83-4.51 [facility] Comment on above: Performed By: #### L 500.4050, L100.0100 ####[facility] [address], [address] Absolute Neut 6.1 X10 3/uL Normal 2.0-7.7 [facility] Comment on above: Performed By: #### L 500.4050, L100.0100 ####[facility] [address], [address] Carbon dioxide, total [Moles /volume] in Central venous bloodOrdered By: Bandar Stubbs on 11-07-2024 CO2 [Moles/Vol] 25.5 mmol/L 21.0-32.0 [facility] Chloride assayOrdered By: Deven Stubbs on 11-07-2024 Chloride [Moles/Vol] 103 mmol/L 98-108 [facility] Comprehensive Metabolic Prof ilon 11-07-2024 Albumin [Mass/Vol] 4.4 g/dL Normal 3.5-5.0 [facility] Comment on above: Performed By: #### L 500.4050, L100.0100 ####[facility] [address] [place], [address] Albumin/Globulin [Mass ratio] 1.7 {ratio} Normal 0.9-2.4 [facility] Comment on above: Performed By: #### L 500.4050, L100.0100 ####[facility] [address], [address] ALK PHOS 82 U/L Normal 35-104 [facility] Comment on above: Performed By: #### L 500.4050, L100.0100 ####[facility] [address] [place], [address] ALT [Catalytic activity/Vol] 28 U/L Normal <=34 [facility] Comment on above: Performed By: #### L 500.4050, L100.0100 ####[facility] [address] [place], [address] AST [Catalytic activity/Vol] 33 U/L High <=31 [facility] Comment on above: Performed By: #### L 500.4050, L100.0100 ####[facility] [address] [place], [address] BUN/CRE 18.8 RATIO Normal 10-20 [facility] Comment on above: Performed By: #### L 500.4050, L100.0100 ####[facility] [address] [place], [address] Calcium [Mass/Vol] 9.1 mg/dL Normal 7.6-11.0 [facility] Comment on above: Performed By: #### L 500.4050, L100.0100 ####[facility] [address] [place], [address] Chloride [Moles/Vol] 103 mmol/L Normal 98-108 [facility] Comment on above: Performed By: #### L 500.4050, L100.0100 ####[facility] [address] [place], [address] CO2 [Moles/Vol] 25.5 mmol/L Normal 21.0-32.0 [facility] Comment on above: Performed By: #### L 500.4050, L100.0100 ####[facility] [address] [place], [address] Creatinine [Mass/Vol] 0.61 mg/dL Low 0.70-1.20 [facility] Comment on above: Performed By: #### L 500.4050, L100.0100 ####[facility] [address] [place], [address] ECRCL 116.59 ml/min Normal 50-250 [facility] Comment on above: Performed By: #### L 500.4050, L100.0100 ####[facility] [address] [place], [address] GAP 11 Normal 5-15 [facility] Comment on above: Performed By: #### L 500.4050, L100.0100 ####[facility] [address] [place], [address] GFR/1.73 sq M.predicted among non-blacks MDRD (S/P/Bld) [Vol rate/Area] 110 mL/min/{1.73_m2} Normal >60 [facility] Comment on above: Result Comment: mL/m in/1.73m2 CKD-EPI Creatinine Equation (2020) Performed By: #### L 500.4050, L100.0100 ####[facility] [address] [place], [address] Globulin (S) [Mass/Vol] 2.6 g/dL Normal 2.2-4.2 [facility] Comment on above: Performed By: #### L 500.4050, L100.0100 ####[facility] [address] [place], [address] Glucose [Mass/Vol] 92 mg/dL Normal 70-99 [facility] Comment on above: Performed By: #### L 500.4050, L100.0100 ####[facility] [address] [place], [address] Potassium [Moles/Vol] 4.0 mmol/L Normal 3.3-5.1 [facility] Comment on above: Performed By: #### L 500.4050, L100.0100 ####[facility] [address] [place], [address] Sodium [Moles/Vol] 140 mmol/L Normal 133-145 [facility] Comment on above: Performed By: #### L 500.4050, L100.0100 ####[facility] [address] [place], [address] T BILI < 0.15 Normal 0.00-1.30 [facility] Comment on above: Performed By: #### L 500.4050, L100.0100 ####[facility] [address] [place], [address] T PROT 7.0 g/dL Normal 5.9-8.4 [facility] Comment on above: Performed By: #### L 500.4050, L100.0100 ####[facility] [address] [place], [address] Urea nitrogen [Mass/Vol] 11 mg/dL Normal 4-19 [facility] Comment on above: Performed By: #### L 500.4050, L100.0100 ####[facility] [address] [place], [address] Erythrocyte distribution wid th ratioOrdered By: Bandar Stubbs on 11-07-2024 Erythrocyte distribution width (RBC) [Ratio] 13.8 % 11.6-14.6 [facility] Erythrocyte distribution wid th standard deviationOrdered By: Bandar Stubbs on 11-07-2024 Erythrocyte distribution width (RBC) [Ratio] 40.5 fl 35.1-43.9 [facility] Erythrocyte morphology asses smentOrdered By: Bandar Stubbs on 11-07-2024 RBC morphology finding Nom (Bld) NORM C+C NORMAL NORM C&C [facility] Glomerular filtration rate ( GFR) estimation/1.73 sq m using serum, plasma, or whole bOrdered By: Bandar Stubbs on 11-07-2024 GFR/1.73 sq M.predicted among non-blacks MDRD (S/P/Bld) [Vol rate/Area] 110 mL/min/{1.73_m2} >60 [facility] Comment on above: mL/min/1.73m2 CKD-EP I Creatinine Equation (2020) Hematocrit Auto (Bld) [Volum e fraction]Ordered By: Bandar Stubbs on 11-07-2024 Hematocrit (Bld) [Volume fraction] 37.8 % 37-47 [facility] Hemoglobin measurementOrdere d By: Bandar Stubbs on 11-07-2024 Hemoglobin (Bld) [Mass/Vol] 12.7 g/dL 12.0-15.0 [facility] Laboratory - Chemistry and C hemistry - challengeOrdered By: Bandar Stubbs on 11-07-2024 AST [Catalytic activity/Vol] 33 U/L High <32 [facility] MCV (mean corpuscular volume ) determinationOrdered By: Bandar Stubbs on 11-07-2024 MCV (RBC) [Entitic vol] 85.3 fL 81-99 [facility] Mean corpuscular hemoglobin (MCH) determinationOrdered By: Bandar Stubbs on 11-07-2024 MCH (RBC) [Entitic mass] 28.7 pg 27.0-32.0 [facility] Mean corpuscular hemoglobin concentration (MCHC) determinationOrdered By: Bandar Stubbs on 11-07-2024 MCHC (RBC) [Mass/Vol] 33.6 g/dL 32-36 [facility] Mean platelet volume determi nationOrdered By: Bandar Stubbs on 11-07-2024 Platelet mean volume (Bld) [Entitic vol] 9.7 fL 6.2-12.0 [facility] Myelocyte %Ordered By: Shanta Stubbs on 11-07-2024 Myelocytes/100 WBC (Bld) 2 % High 0-0 [facility] Oncology Visit Reporton 06 Oncology Visit Report Normal [facility] Platelet countOrdered By: Deven Stubbs on 11-07-2024 Platelets (Bld) [#/Vol] 171 10*3/uL 150-450 [facility] Platelet estimateOrdered By: Bandar Stubbs on 11-07-2024 Platelets LM Ql (Bld) A ADEQ [facility] Potassium measurement (mass/ volume)Ordered By: Bandar Stubbs on 11-07-2024 Potassium (Unsp spec) [Mass/Vol] 4.0 mmol/L 3.3-5.1 [facility] RBC Auto (Bld) [#/Vol]Ordere d By: Bandar Stubbs on 11-07-2024 RBC (Bld) [#/Vol] 4.43 10*6/uL 4.2-5.4 [facility] Serum creatinine measurement (mass/volume)Ordered By: Bandar Stubbs on 11-07-2024 Creatinine [Mass/Vol] 0.61 mg/dL Low 0.70-1.20 [facility] Serum globulin measurementOr dered By: Bandar Stubbs on 11-07-2024 Globulin (S) [Mass/Vol] 2.6 g/dL 2.2-4.2 [facility] Serum glucose measurement (m ass/volume)Ordered By: Bandar Stubbs on 11-07-2024 Glucose [Mass/Vol] 92 mg/dL 70-99 [facility] Serum or plasma alanine moreno otransferase (ALT) measurementOrdered By: Bandar Stubbs on 11-07-2024 ALT [Catalytic activity/Vol] 28 U/L <35 [facility] Serum or plasma albumin laurie urement (mass/volume)Ordered By: Bandar Stubbs on 11-07-2024 Albumin [Mass/Vol] 4.4 g/dL 3.5-5.0 [facility] Serum or plasma albumin/glob ulin mass ratioOrdered By: Bandar Stubbs on 11-07-2024 Albumin/Globulin [Mass ratio] 1.7 {ratio} 0.9-2.4 [facility] Serum or plasma alkaline geoffrey sphatase measurementOrdered By: Bandar Stubbs on 11-07-2024 ALP [Catalytic activity/Vol] 82 U/L 35-104 [facility] Serum or plasma calcium laurie urement (mass/volume)Ordered By: Bandar Stubbs on 11-07-2024 Calcium [Mass/Vol] 9.1 mg/dL 7.6-11.0 [facility] Serum or plasma urea nitroge n measurement (mass/volume)Ordered By: Bandar Stubbs on 11-07-2024 Urea nitrogen [Mass/Vol] 11 mg/dL 4-19 [facility] Sodium levelOrdered By: Arlette imani Enoc on 11-07-2024 Sodium [Moles/Vol] 140 mmol/L 133-145 [facility] Total cell countOrdered By: Bandar Stubbs on 11-07-2024 Cells counted Mol[employer] (Bld/Tiss) [#] 100 MANUAL DIFF [facility] Total proteinOrdered By: Fabio radha Stubbs on 11-07-2024 Protein [Mass/Vol] 7.0 g/dL 5.9-8.4 [facility] White blood cell (WBC) count Ordered By: Bandar Stubbs on 11-07-2024 WBC (Bld) [#/Vol] 8.8 10*3/uL 4.4-11.0 [facility] CBC W/Diff, Automatedon 10-04 PATH REV Reviewed Normal [facility] Comment on above: Result Comment: SEE REPORT IN PATIENT'S EMR AMENDED REPORT 10/31/24 1425 PATH REV previously reported as: October griffin Performed By: #### L 100.0100, L500.4050 ####[facility] [address] [place], [place], [id number] Blood eosinophils/100 leukoc ytesOrdered By: Bandar Stubbs on 10-24-2024 Eosinophils/100 WBC (Bld) 1 % 0-5 [facility] Comprehensive Metabolic Prof ilon 10-24-2024 Albumin [Mass/Vol] 4.4 g/dL Normal 3.5-5.0 [facility] Comment on above: Performed By: #### L 100.0100, L500.4050 ####[facility] [address] [place], [place], [id number] Albumin/Globulin [Mass ratio] 1.6 {ratio} Normal 0.9-2.4 [facility] Comment on above: Performed By: #### L 100.0100, L500.4050 ####[facility] [address] [place], [address] ALK PHOS 75 U/L Normal 35-104 [facility] Comment on above: Performed By: #### L 100.0100, L500.4050 ####[facility] [address] [place], [address] ALT [Catalytic activity/Vol] 11 U/L Normal <=34 [facility] Comment on above: Performed By: #### L 100.0100, L500.4050 ####[facility] [address] [place], [address] AST [Catalytic activity/Vol] 20 U/L Normal <=31 [facility] Comment on above: Performed By: #### L 100.0100, L500.4050 ####[facility] [address] [place], [address] BUN/CRE 22.2 RATIO High 10-20 [facility] Comment on above: Performed By: #### L 100.0100, L500.4050 ####[facility] [address] [place], [address] Calcium [Mass/Vol] 9.5 mg/dL Normal 7.6-11.0 [facility] Comment on above: Performed By: #### L 100.0100, L500.4050 ####[facility] [address] [place], [address] Chloride [Moles/Vol] 105 mmol/L Normal 98-108 [facility] Comment on above: Performed By: #### L 100.0100, L500.4050 ####[facility] [address] [place], [address] CO2 [Moles/Vol] 25.0 mmol/L Normal 21.0-32.0 [facility] Comment on above: Performed By: #### L 100.0100, L500.4050 ####[facility] [address] [place], [address] Creatinine [Mass/Vol] 0.59 mg/dL Low 0.70-1.20 [facility] Comment on above: Performed By: #### L 100.0100, L500.4050 ####[facility] [address] [place], [address] ECRCL 120.54 ml/min Normal 50-250 [facility] Comment on above: Performed By: #### L 100.0100, L500.4050 ####[facility] [address] [place], [address] GAP 10 Normal 5-15 [facility] Comment on above: Performed By: #### L 100.0100, L500.4050 ####[facility] [address] [place], [address] GFR/1.73 sq M.predicted among non-blacks MDRD (S/P/Bld) [Vol rate/Area] 110 mL/min/{1.73_m2} Normal >60 [facility] Comment on above: Result Comment: mL/m in/1.73m2 CKD-EPI Creatinine Equation (2020) Performed By: #### L 100.0100, L500.4050 ####[facility] [address] [place], [address] Globulin (S) [Mass/Vol] 2.7 g/dL Normal 2.2-4.2 [facility] Comment on above: Performed By: #### L 100.0100, L500.4050 ####[facility] [address] [place], [address] Glucose [Mass/Vol] 70 mg/dL Normal 70-99 [facility] Comment on above: Performed By: #### L 100.0100, L500.4050 ####[facility] [address] [place], [address] Potassium [Moles/Vol] 4.2 mmol/L Normal 3.3-5.1 [facility] Comment on above: Performed By: #### L 100.0100, L500.4050 ####[facility] [address] [place], [address] Sodium [Moles/Vol] 140 mmol/L Normal 133-145 [facility] Comment on above: Performed By: #### L 100.0100, L500.4050 ####[facility] [address] [place], [address] T BILI < 0.15 Normal 0.00-1.30 [facility] Comment on above: Performed By: #### L 100.0100, L500.4050 ####[facility] [address] [place], [address] T PROT 7.1 g/dL Normal 5.9-8.4 [facility] Comment on above: Performed By: #### L 100.0100, L500.4050 ####[facility] [address] [place], [address] Urea nitrogen [Mass/Vol] 13 mg/dL Normal 4-19 [facility] Comment on above: Performed By: #### L 100.0100, L500.4050 ####[facility] [address] [place], [address] Oncology Visit Reporton 10-04 Oncology Visit Report Normal [facility] Review by pathologistOrdered By: Bandar Stubbs on 10-24-2024 Pathologist review Dayo (Unsp spec) [Interp] Reviewed [facility] Comment on above: Previous reported re sult: Silvana omya Edited by: VERN on 10/31/24:1425SEE REPORT IN PATIENT'S EMR AMENDED REPORT 10/31/24 1425 PATH REV previously reported as: May foll Anion gap in Serum or Plasma Ordered By: Alyssa Gillespie on 10-17-2024 Anion gap [Moles/Vol] 9 mmol/L 10-17 [facility] Automated lymphocyte count a s percentage of total leukocytesOrdered By: Alyssa Gillespie on 10-17-2024 Lymphocytes/100 WBC Auto (Unsp spec) 52.3 % High 19-41 [facility] BUN/creatinine ratioOrdered By: Alyssa Gillespie on 10-17-2024 Urea nitrogen/Creatinine [Mass ratio] 23.7 mg/mg High 03-24 [facility] Basic Metabolic Profile (BMP )on 10-17-2024 BUN/CRE 23.7 RATIO High 03-24 [facility] Comment on above: Performed By: #### L 100.0100, L500.2500 ####[facility] [address] [place], [address] ECRCL 131.70 ml/min Normal 50-250 [facility] Comment on above: Performed By: #### L 100.0100, L500.2500 ####[facility] [address] [place], [address] GAP 9 Normal 10-17 [facility] Comment on above: Performed By: #### L 100.0100, L500.2500 ####[facility] [address] [place], [address] Potassium [Moles/Vol] 4.3 mmol/L Normal 3.3-5.1 [facility] Comment on above: Performed By: #### L 100.0100, L500.2500 ####[facility] [address] [place], [address] Basophil percentageOrdered B y: Alyssa Gillespie on 10-17-2024 Basophils/100 WBC (Bld) 2.3 % High 0-1 [facility] CBC W/Diff, Automatedon 10-03 PLT EST MOD DEC Normal ADEQ [facility] Comment on above: Performed By: #### L 100.0100, L500.2500 ####[facility] [address] [place], [address] REACTIVE LYMPH 1+ Normal [facility] Comment on above: Performed By: #### L 100.0100, L500.2500 ####[facility] [address] [place], [address] TOXIC GRAN 1+ Normal [facility] Comment on above: Performed By: #### L 100.0100, L500.2500 ####[facility] [address] [place], [address] Carbon dioxide, total [Moles /volume] in Central venous bloodOrdered By: Alyssa JohnsonVerna on 10-17-2024 CO2 [Moles/Vol] 26.3 mmol/L Normal 21.0-32.0 [facility] Comment on above: Performed By: #### L 100.0100, L500.2500 ####[facility] [address] [place], [address] Chloride assayOrdered By: Ty ra Gillespie on 10-17-2024 Chloride [Moles/Vol] 104 mmol/L Normal 98-108 [facility] Comment on above: Performed By: #### L 100.0100, L500.2500 ####[facility] [address] [place], [address] Eosinophil percentageOrdered By: Alyssaigor JohnsonVerna on 10-17-2024 Eosinophils/100 WBC (Bld) 9.2 % High 0-5 [facility] Glomerular filtration rate ( GFR) estimation/1.73 sq m using serum, plasma, or whole bOrdered By: Alyssaigor JohnsonVerna on 10-17-2024 GFR/1.73 sq M.predicted among non-blacks MDRD (S/P/Bld) [Vol rate/Area] 113 mL/min/{1.73_m2} Normal >60 [facility] Comment on above: mL/min/1.73m2 CKD-EP I Creatinine Equation (2020) Result Comment: mL/m in/1.73m2 CKD-EPI Creatinine Equation (2020) Performed By: #### L 100.0100, L500.2500 ####[facility] [address] [place], [address] Immature granulocytes/100 WB C Auto (Bld)Ordered By: Alyssa Gillespie on 10-17-2024 Immature granulocytes/100 WBC (Bld) 1.100 % High 0.0-0.9 [facility] Comment on above: IG% - Immature Granu locytes (promyelocytes, myelocytes and metamyelocytes) > 1% indicates that a LEFT SHIFT is Present. Monocyte percentageOrdered B y: Alyssa Gillespie on 10-17-2024 Monocytes/100 WBC (Bld) 7.5 % 0-10 [facility] Nucleated red blood cell per centageOrdered By: Alyssa Gillespie on 10-17-2024 Nucleated RBC/100 WBC (Bld) [Ratio] 0 % 0-5 [facility] Oncology Visit Reporton 10-03 Oncology Visit Report Normal [facility] Potassium measurement (mass/ volume)Ordered By: Alyssa Gillespie on 10-17-2024 Potassium (Unsp spec) [Mass/Vol] 4.3 mmol/L 3.3-5.1 [facility] Serum creatinine measurement (mass/volume)Ordered By: Alyssa Gillespie on 10-17-2024 Creatinine [Mass/Vol] 0.54 mg/dL Low 0.70-1.20 [facility] Comment on above: Performed By: #### L 100.0100, L500.2500 ####[facility] [address] [place], [address] Serum glucose measurement (m ass/volume)Ordered By: Alyssa Gillespie on 10-17-2024 Glucose [Mass/Vol] 85 mg/dL Normal 70-99 [facility] Comment on above: Performed By: #### L 100.0100, L500.2500 ####[facility] [address] [place], [address] Serum or plasma calcium laurie urement (mass/volume)Ordered By: Alyssa Gillespie on 10-17-2024 Calcium [Mass/Vol] 9.3 mg/dL Normal 7.6-11.0 [facility] Comment on above: Performed By: #### L 100.0100, L500.2500 ####[facility] [address] [place], [address] Serum or plasma urea nitroge n measurement (mass/volume)Ordered By: Alyssa Gillespie on 10-17-2024 Urea nitrogen [Mass/Vol] 13 mg/dL Normal 4-19 [facility] Comment on above: Performed By: #### L 100.0100, L500.2500 ####[facility] [address] [place], [address] Sodium levelOrdered By: Alyssa Gillespie on 10-17-2024 Sodium [Moles/Vol] 140 mmol/L Normal 133-145 [facility] Comment on above: Performed By: #### L 100.0100, L500.2500 ####[facility] [address] [place], [address] Toxic leukocyte granulation detectionOrdered By: Alyssa Gillespie on 10-17-2024 Toxic granules LM Ql (Bld) 1+ [facility] Absolute lymphocyte countOrd ered By: Bandar Stubbs on 10-10-2024 Lymphocytes Auto (Unsp spec) [#/Vol] 1.85 10*3/uL 0.83-4.51 [facility] Absolute neutrophil countOrd ered By: Bandar Stubbs on 10-10-2024 Neutrophils (Bld) [#/Vol] 1.9 10*3/uL Low 2.0-7.7 [facility] Anion gap in Serum or Plasma Ordered By: Bandar Stubbs on 10-10-2024 Anion gap [Moles/Vol] 10 mmol/L 5-15 [facility] Automated lymphocyte count a s percentage of total leukocytesOrdered By: Bandar Stubbs on 10-10-2024 Lymphocytes/100 WBC Auto (Unsp spec) 43.3 % High 19-41 [facility] BUN/creatinine ratioOrdered By: Bandar Enoc on 10-10-2024 Urea nitrogen/Creatinine [Mass ratio] 15.4 mg/mg 10-20 [facility] Basophil percentageOrdered B y: Bandar Enoc on 10-10-2024 Basophils/100 WBC (Bld) 0.7 % 0-1 [facility] Bilirubin, totalOrdered By: [facility] St[facility] on 10-10-2024 Bilirubin [Mass/Vol] 0.20 mg/dL 0.00-1.30 [facility] CBC W/Diff, Automatedon Absolute Lymph 1.85 X10 3/uL Normal 0.83-4.51 [facility] Comment on above: Performed By: #### L 500.4050, L100.0100 ####[facility] [address] [place], [address] Absolute Neut 1.9 X10 3/uL Low 2.0-7.7 [facility] Comment on above: Performed By: #### L 500.4050, L100.0100 ####[facility] [address] [place], [address] Basophils/100 WBC (Bld) 0.7 % Normal 0-1 [facility] Comment on above: Performed By: #### L 500.4050, L100.0100 ####[facility] [address] [place], [address] Eosinophils/100 WBC (Bld) 3.0 % Normal 0-5 [facility] Comment on above: Performed By: #### L 500.4050, L100.0100 ####[facility] [address] [place], [address] Erythrocyte distribution width (RBC) [Ratio] 14.0 % Normal 11.6-14.6 [facility] Comment on above: Performed By: #### L 500.4050, L100.0100 ####[facility] [address] [place], [address] Hematocrit (Bld) [Volume fraction] 39.6 % Normal 37-47 [facility] Comment on above: Performed By: #### L 500.4050, L100.0100 ####[facility] [address] [place], [address] Hemoglobin (Bld) [Mass/Vol] 13.2 g/dL Normal 12.0-15.0 [facility] Comment on above: Performed By: #### L 500.4050, L100.0100 ####[facility] [address] [place], [address] IG% 0.000 Normal 0.0-0.9 [facility] Comment on above: Result Comment: IG% - Immature Granulocytes (promyelocytes, myelocytes andmetamyelocytes) > 1% indicates that a LEFT SHIFT is Present. Performed By: #### L 500.4050, L100.0100 ####[facility] [address] [place], [address] Lymphocytes/100 WBC (Bld) 43.3 % High 19-41 [facility] Comment on above: Performed By: #### L 500.4050, L100.0100 ####[facility] [address] [place], [address] MCH (RBC) [Entitic mass] 27.6 pg Normal 27.0-32.0 [facility] Comment on above: Performed By: #### L 500.4050, L100.0100 ####[facility] [address] [place], [address] MCHC (RBC) [Mass/Vol] 33.3 g/dL Normal 32-36 [facility] Comment on above: Performed By: #### L 500.4050, L100.0100 ####[facility] [address] [place], [address] MCV (RBC) [Entitic vol] 82.8 fL Normal 81-99 [facility] Comment on above: Performed By: #### L 500.4050, L100.0100 ####[facility] [address] [place], [address] Monocytes/100 WBC (Bld) 9.1 % Normal 0-10 [facility] Comment on above: Performed By: #### L 500.4050, L100.0100 ####[facility] [address] [place], [address] Neutrophils/100 WBC (Bld) 43.9 % Low 47-70 [facility] Comment on above: Performed By: #### L 500.4050, L100.0100 ####[facility] [address] [place], [address] Nucleated RBC (Bld) [#/Vol] 0 10*3/uL Normal 0-5 [facility] Comment on above: Performed By: #### L 500.4050, L100.0100 ####[facility] [address] [place], [address] Platelet mean volume (Bld) [Entitic vol] 10.1 fL Normal 6.2-12.0 [facility] Comment on above: Performed By: #### L 500.4050, L100.0100 ####[facility] [address] [place], [address] Platelets (Bld) [#/Vol] 196 10*3/uL Normal 150-450 [facility] Comment on above: Performed By: #### L 500.4050, L100.0100 ####[facility] [address] [place], [address] RBC (Bld) [#/Vol] 4.78 10*6/uL Normal 4.2-5.4 [facility] Comment on above: Performed By: #### L 500.4050, L100.0100 ####[facility] [address] [place], [address] RDW SD 41.1 fl Normal 35.1-43.9 [facility] Comment on above: Performed By: #### L 500.4050, L100.0100 ####[facility] [address] [place], [address] WBC (Bld) [#/Vol] 4.3 10*3/uL Low 4.4-11.0 [facility] Comment on above: Performed By: #### L 500.4050, L100.0100 ####[facility] [address] [place], [address] Carbon dioxide, total [Moles /volume] in Central venous bloodOrdered By: Bandar Stubbs on 10-10-2024 CO2 [Moles/Vol] 24.6 mmol/L 21.0-32.0 [facility] Chloride assayOrdered By: Deven Stubbs on 10-10-2024 Chloride [Moles/Vol] 106 mmol/L 98-108 [facility] Comprehensive Metabolic Prof ilon 10-10-2024 Albumin [Mass/Vol] 4.3 g/dL Normal 3.5-5.0 [facility] Comment on above: Performed By: #### L 500.4050, L100.0100 ####[facility] [address] [place], [address] Albumin/Globulin [Mass ratio] 1.7 {ratio} Normal 0.9-2.4 [facility] Comment on above: Performed By: #### L 500.4050, L100.0100 ####[facility] [address] [place], [address] ALK PHOS 56 U/L Normal 35-104 [facility] Comment on above: Performed By: #### L 500.4050, L100.0100 ####[facility] [address] [place], [address] ALT [Catalytic activity/Vol] 14 U/L Normal <=34 [facility] Comment on above: Performed By: #### L 500.4050, L100.0100 ####[facility] [address] [place], [address] AST [Catalytic activity/Vol] 22 U/L Normal <=31 [facility] Comment on above: Performed By: #### L 500.4050, L100.0100 ####[facility] [address] [place], [address] Bilirubin [Mass/Vol] 0.20 mg/dL Normal 0.00-1.30 [facility] Comment on above: Performed By: #### L 500.4050, L100.0100 ####[facility] [address] [place], [address] BUN/CRE 15.4 RATIO Normal 10-20 [facility] Comment on above: Performed By: #### L 500.4050, L100.0100 ####[facility] [address] [place], [address] Calcium [Mass/Vol] 9.5 mg/dL Normal 7.6-11.0 [facility] Comment on above: Performed By: #### L 500.4050, L100.0100 ####[facility] [address] [place], [address] Chloride [Moles/Vol] 106 mmol/L Normal 98-108 [facility] Comment on above: Performed By: #### L 500.4050, L100.0100 ####[facility] [address] [place], [address] CO2 [Moles/Vol] 24.6 mmol/L Normal 21.0-32.0 [facility] Comment on above: Performed By: #### L 500.4050, L100.0100 ####[facility] [address] [place], [address] Creatinine [Mass/Vol] 0.60 mg/dL Low 0.70-1.20 [facility] Comment on above: Performed By: #### L 500.4050, L100.0100 ####[facility] [address] [place], [address] ECRCL 118.53 ml/min Normal 50-250 [facility] Comment on above: Performed By: #### L 500.4050, L100.0100 ####[facility] [address] [place], [address] GAP 10 Normal 5-15 [facility] Comment on above: Performed By: #### L 500.4050, L100.0100 ####[facility] [address] [place], [address] GFR/1.73 sq M.predicted among non-blacks MDRD (S/P/Bld) [Vol rate/Area] 110 mL/min/{1.73_m2} Normal >60 [facility] Comment on above: Result Comment: mL/m in/1.73m2 CKD-EPI Creatinine Equation (2020) Performed By: #### L 500.4050, L100.0100 ####[facility] [address] [place], [address] Globulin (S) [Mass/Vol] 2.6 g/dL Normal 2.2-4.2 [facility] Comment on above: Performed By: #### L 500.4050, L100.0100 ####[facility] [address] [place], [address] Glucose [Mass/Vol] 94 mg/dL Normal 70-99 [facility] Comment on above: Performed By: #### L 500.4050, L100.0100 ####[facility] [address] [place], [address] Potassium [Moles/Vol] 4.1 mmol/L Normal 3.3-5.1 [facility] Comment on above: Performed By: #### L 500.4050, L100.0100 ####[facility] [address] [place], [address] Sodium [Moles/Vol] 140 mmol/L Normal 133-145 [facility] Comment on above: Performed By: #### L 500.4050, L100.0100 ####[facility] [address] [place], [address] T PROT 6.9 g/dL Normal 5.9-8.4 [facility] Comment on above: Performed By: #### L 500.4050, L100.0100 ####[facility] [address] [place], [address] Urea nitrogen [Mass/Vol] 9 mg/dL Normal 4-19 [facility] Comment on above: Performed By: #### L 500.4050, L100.0100 ####[facility] [address] [place], [address] Eosinophil percentageOrdered By: Bandar Stubbs on 10-10-2024 Eosinophils/100 WBC (Bld) 3.0 % 0-5 [facility] Erythrocyte distribution wid th ratioOrdered By: Bandar Stubbs on 10-10-2024 Erythrocyte distribution width (RBC) [Ratio] 14.0 % 11.6-14.6 [facility] Erythrocyte distribution wid th standard deviationOrdered By: Bandar Stubbs on 10-10-2024 Erythrocyte distribution width (RBC) [Ratio] 41.1 fl 35.1-43.9 [facility] Glomerular filtration rate ( GFR) estimation/1.73 sq m using serum, plasma, or whole bOrdered By: Bandar Stubbs on 10-10-2024 GFR/1.73 sq M.predicted among non-blacks MDRD (S/P/Bld) [Vol rate/Area] 110 mL/min/{1.73_m2} >60 [facility] Comment on above: mL/min/1.73m2 CKD-EP I Creatinine Equation (2020) Hematocrit Auto (Bld) [Volum e fraction]Ordered By: Bandar Stubbs on 10-10-2024 Hematocrit (Bld) [Volume fraction] 39.6 % 37-47 [facility] Hemoglobin measurementOrdere d By: Bandar Stubbs on 10-10-2024 Hemoglobin (Bld) [Mass/Vol] 13.2 g/dL 12.0-15.0 [facility] Immature granulocytes/100 WB C Auto (Bld)Ordered By: [facility] on 10-10-2024 Immature granulocytes/100 WBC (Bld) 0.000 % 0.0-0.9 [facility] Comment on above: IG% - Immature Granu locytes (promyelocytes, myelocytes and metamyelocytes) > 1% indicates that a LEFT SHIFT is Present. Laboratory - Chemistry and C hemistry - challengeOrdered By: Bandar Stubbs on 10-10-2024 AST [Catalytic activity/Vol] 22 U/L <32 [facility] MCV (mean corpuscular volume ) determinationOrdered By: Bandar Stubbs on 10-10-2024 MCV (RBC) [Entitic vol] 82.8 fL 81-99 [facility] Mean corpuscular hemoglobin (MCH) determinationOrdered By: [facility] St[facility] on 10-10-2024 MCH (RBC) [Entitic mass] 27.6 pg 27.0-32.0 [facility] Mean corpuscular hemoglobin concentration (MCHC) determinationOrdered By: Bandar Stubbs on 10-10-2024 MCHC (RBC) [Mass/Vol] 33.3 g/dL 32-36 [facility] Mean platelet volume determi nationOrdered By: Bandar Stubbs on 10-10-2024 Platelet mean volume (Bld) [Entitic vol] 10.1 fL 6.2-12.0 [facility] Monocyte percentageOrdered B y: Bandar Stubbs on 10-10-2024 Monocytes/100 WBC (Bld) 9.1 % 0-10 [facility] Neutrophil percentageOrdered By: aBndar Stubbs on 10-10-2024 Neutrophils/100 WBC (Bld) 43.9 % Low 47-70 [facility] Nucleated red blood cell per centageOrdered By: Bandar Stubbs on 10-10-2024 Nucleated RBC/100 WBC (Bld) [Ratio] 0 % 0-5 [facility] Oncology Visit Reporton 05-0 Oncology Visit Report Normal [facility] Platelet countOrdered By: Deven Stubbs on 10-10-2024 Platelets (Bld) [#/Vol] 196 10*3/uL 150-450 [facility] Potassium measurement (mass/ volume)Ordered By: Bandar Stubbs on 10-10-2024 Potassium (Unsp spec) [Mass/Vol] 4.1 mmol/L 3.3-5.1 [facility] RBC Auto (Bld) [#/Vol]Ordere d By: Bandar Stubbs on 10-10-2024 RBC (Bld) [#/Vol] 4.78 10*6/uL 4.2-5.4 [facility] Serum creatinine measurement (mass/volume)Ordered By: Bandar Stubbs on 10-10-2024 Creatinine [Mass/Vol] 0.60 mg/dL Low 0.70-1.20 [facility] Serum globulin measurementOr dered By: Bandar Stubbs on 10-10-2024 Globulin (S) [Mass/Vol] 2.6 g/dL 2.2-4.2 [facility] Serum glucose measurement (m ass/volume)Ordered By: Bandar Stubbs on 10-10-2024 Glucose [Mass/Vol] 94 mg/dL 70-99 [facility] Serum or plasma alanine moreno otransferase (ALT) measurementOrdered By: Bandar Stubbs on 10-10-2024 ALT [Catalytic activity/Vol] 14 U/L <35 [facility] Serum or plasma albumin laurie urement (mass/volume)Ordered By: Bandar Stubbs on 10-10-2024 Albumin [Mass/Vol] 4.3 g/dL 3.5-5.0 [facility] Serum or plasma albumin/glob ulin mass ratioOrdered By: Bandar Enoc on 10-10-2024 Albumin/Globulin [Mass ratio] 1.7 {ratio} 0.9-2.4 [facility] Serum or plasma alkaline geoffrey sphatase measurementOrdered By: Arletteimani Stubbs on 10-10-2024 ALP [Catalytic activity/Vol] 56 U/L 35-104 [facility] Serum or plasma calcium laurie urement (mass/volume)Ordered By: [facility] St[facility] on 10-10-2024 Calcium [Mass/Vol] 9.5 mg/dL 7.6-11.0 [facility] Serum or plasma urea nitroge n measurement (mass/volume)Ordered By: Bandar Stubbs on 10-10-2024 Urea nitrogen [Mass/Vol] 9 mg/dL 4-19 [facility] Sodium levelOrdered By: Arlette Stubbs on 10-10-2024 Sodium [Moles/Vol] 140 mmol/L 133-145 [facility] Total proteinOrdered By: Fabio Stubbs on 10-10-2024 Protein [Mass/Vol] 6.9 g/dL 5.9-8.4 [facility] White blood cell (WBC) count Ordered By: Bandar Stubbs on 10-10-2024 WBC (Bld) [#/Vol] 4.3 10*3/uL Low 4.4-11.0 [facility] Pelvic w/ Transvaginalon Pelvic w/ Transvaginal Normal [facility] Positron emission tomography scan reportOrdered By: Julieta Gallo on 10-02-2024 PT Unspecified body region [facility] Imaging Services [address] [place] [address] PET/CT Tumor Base -Thigh Init MR#: [id number] Acct: [id number] Name: SUSAN LIN Rep #: [id number] : 1975 F 48 From: Fidelia Gallo MD PCP: TATE Genao Status: REG RCR Study:PET/CT Tumor Base -Thigh Init Date of E xaeverett: 10/01/24 Exam# [id number] Ordering Dr: Bandar Stubbs MD EXAM: PET/CT Study CLINICAL HISTORY: 48 y/o F with leftbreast cancer, initial staging. Positive left axillary lymph node. 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 COMPARISON: CT chest 07/16/2024. TECHNIQUE: PROCEDURE: Following the intravenous administration of radionucleotide, image acquisition on a dedicated PET/CT unit was performed at one hour post injection. A preliminary CT study encompassing the Skull base, neck, chest, abdomen, pelvis, and proximal thighs was performed for purposes of attenuation correction and anatomic localization. The patient's blood glucose level was 78 mg/dL (allowable range: 50-180 mg/dL). RADIOPHARMACEUTICAL: 13.9 mCi 18F-FDG (Fluorodeoxyglucose F18) IV was injected into patient. FINDINGS: Physiologic uptake: There may be expected metabolic uptake within the brain, tongue and floor of the mouth and larynx/vocal cords, heart, maddy (many normal individuals have hilar uptake in less than 3 nodes with mildly avid hilar nodes less than 2.7 SUV), liver and spleen, system, and GI tract and symmetric muscle uptake. FDG AVID AND NON-AVID LESIONS. Reported avid SUV values (g/mL*) are maximum SUV. Average liver parenchyma SUV: 2.0 HEAD/NECK: No suspicious hypermetabolic lesions. CHEST: Mildly hypermetabolic left axillary node, demonstrating a maximum SUV of 2.2. Left breast mass demonstrating central hypometabolism/necrosis, and peripheral hypermetabolism. The areas of greatest hypermetabolic activity are along the inner aspects of the breast mass, for example along the left lower inner aspect of thebreast mass, there is an area of focal hypermetabolic activity with a maximum SUV of 4.5. Additionally, there is asymmetric hypermetabolic activity of the left breast parenchyma (max SUV 3.7) compared with the right breast parenchyma (max SUV 1.5). ABDOMEN: No suspicious hypermetabolic lesions. PELVIS: No suspicious hypermetabolic lesions. Additional CT findings: Right IJ chest port with tip terminating in the right atrium. Minimal thoracic aortic calcifications. Left upper outer breast mass with surgical clips and scattered subcutaneous air,compatible postsurgical status. Additional surgical clips within the left axilla. Ovarian cystic lesion within the lower pelvis, measuring 6.4 x 4.5 cm (CT image 252). Thoracolumbar spondylosis. PET/PET/CT Tumor Base -Thigh Init IMPRESSION: 1. Peripheral hypermetabolic uptake along the left breast mass, greatest along the left lower and upper aspects. Recommend correlation with recent lumpectomy surgical margins and consideration of increased reexcision field. 2. Hypermetabolic uptake involving the left level I axillary nodes. No hypermetabolic level II or III nodes visualized on PET-CT examination. 3. Mild asymmetric hypermetabolic activity of the left breast parenchyma compared to the right, which may be due to inflammation from recent surgical excision. 4. Ovarian cystic lesion within the lower pelvis without hypermetabolic activityand most compatible with ovarian cyst, however this is incompletely characterized by noncontrast examination. Pelvic ultrasound is recommended for further evaluation. Please note the low-dose CT scan was performed to facilitate PET image reconstruction and anatomic localization and does not replace a diagnostic CT. Any diagnostic CT requested and performed at the time of the PET will be reported separately. Reading Location: [id number] CC: Dr. Bandar Stubbs MD; TATE Genao ~ Mud Car Worker: Signed [facility] PET/CT Tumor Base -Thigh Ini ton 10-01-2024 PET/CT Tumor Base -Thigh Init Normal [facility] ONC Echo Completeon 09-27-19 25 ONC Echo Complete Normal [facility] Oncology Visit Reporton 09-04 Oncology Visit Report Normal [facility] Surgery Visit Reporton 09-24 Surgery Visit Report Normal [facility] Discharge Instructionon Discharge Instruction Normal [facility] Immunohistochemical Stainson 09-11-2024 Immunohistochemical Stains Normal [facility] Comment on above: Performed By: #### P [facility] ####[facility] [address] [place], [place], [address] MR/POSTOP.ANEon 09-11-2024 MR/POSTOP.ANE Normal [facility] MR/[id number] 09-11-2024 MR/POSTOPAN2 Normal [facility] Operative Reporton Operative Report Normal [facility] ,Urineon 09-11-2024 Beta HCG ( test) Ql (U) Negative Normal [facility] Comment on above: Result Comment: Very dilute urine specimens, as indicated by a low specificgravity, may not contain outside medical sales representative levels of hCG.If is still suspected, a first morning urinespecimen should be collected 48 hours later and tested. Performed By: #### L 400.7600 ####[facility] [address] [place] [address], [address] Urine testOrdered By: Yovany Rios on 09-11-2024 HCG ( test) Ql (U) Negative [facility] Comment on above: Very dilute urine sp ecimens, as indicated by a low specificgravity, may not contain outside medical sales representative levels of hCG. If is still suspected, a first morning urinespecimen should be collected 48 hours later and tested. Oncology Visit Reporton 08-04 Oncology Visit Report Normal [facility] SURG PATH REQUESTon 08-22-19 Case Report Normal [facility] Comment on above: Result Comment: Surg ical Pathology Report Case: [id number] Authorizing Provider: Georgette Chatman MD Collected: 08/21/2024 01:38 PM Ordering Location[facility] Received: 08/21/2024 01:32 PM [place] Pathologist: Dallin Esparza MD, PhD Specimen: SURG PATH, Outside unstained slides [id number] (A1); Left breast, needle-localized lumectomy; molecular testing Performed By: #### S URGP #### [facility] (DEFAULT) [address] [place] [address] Clinical History Normal [facility] Comment on above: Result Comment: Requ est received from Georgette Chatman MD at [facility], [address] [place] [address], for molecular studies on a unstained slides received from [facility]. Performed By: #### S URGP #### [facility] (DEFAULT) [address] [address] Gross Description Normal [facility] Comment on above: Result Comment: The following material(s) are received from [facility], [address] [place] [address] with an identifying Surgical Pathology Report: 1 H&E and 2 unstained slides marked [id number] (A1), which is submitted to the [facility] histology/IHC laboratory for recutting and additional staining for HER2 FISH testing. Materials will be returned upon completion. Grosser for this case was: Gia De Leon Performed By: #### S URGP #### [facility] (DEFAULT) [address] [address] Microscopic Description [facility] Comment on above: Result Comment: Tiss ue was assessed by a molecular pathologist to select areas for analysis and to correlate immunostaining with histology. No morphologic assessment was requested. Performed By: #### S URGP #### [facility] (DEFAULT) [address] [address] Pathologic Diagnosis [facility] Comment on above: Result Comment: Outs jesse Slides: [id number] (08/13/24) Left breast, needle-localized lumpectomy: HER2 score: Negative (see FISH results for details) at 2116 EDT Performed By: #### S URGP #### [facility] (DEFAULT) [address] [address] Professional Interpretation Performed at: [facility] Comment on above: Result Comment: [facility] For Immediate Release [facility] Yes [address], [facility] Lyndora [address] [place], [place] [address] Performed By: #### S URGP #### [facility] (DEFAULT) [address] [address] Surgery Visit Reporton 08-20 Surgery Visit Report Normal [facility] Breast Biopsy Specimenon Breast Biopsy Specimen Normal [facility] Breast imaging reportOrdered By: Antione Walter on 08-13-2024 Study report [facility] Imaging Services [address] [place] [address] Breast Biopsy Specimen MR#: [id number] Acct: [id number] Name: SUSAN LIN Rep #: [id number] : 1975 F 48 From: [place] MD PCP: TATE Genao Status: REG [facility] Study:Breast Biopsy Specimen Date of Exam: 08/13/24 Exam# [id number] Ordering Dr: St abdias Mcdaniel MD PROCEDURE: BREAST BIOPSY SPECIMEN REASON FOR EXAM: Breast biopsy specimen TECHNIQUE: Radiograph of the operative specimen was obtained. COMPARISON: Prior study done earlier in the day. FINDINGS: The specimen contains the tissue clip markers. BI/Breast Biopsy Specimen IMPRESSION: The specimen contains the tissue clip marker is. Follow-up code: Routine Follow-up Reading Location: [place] [address] CC: Dr. Gareth Mcdaniel MD; TATE Genao ~ Mud Car Worker: Signed [facility] Study report [facility] Imaging Services [address] [place] [address] Breast Biopsy Specimen MR#: [id number] Acct: [id number] Name: SUSAN LIN Rep #: [id number] : 1975 F 48 From: [place] MD PCP: TATE Genao Status: REG [facility] Study:Breast Biopsy Specimen Date of Exam: 08/13/24 Exam# [id number] Ordering Dr: St abdias Mcdaniel MD PROCEDURE: BREAST BIOPSY SPECIMEN REASON FOR EXAM: Excisional breast biopsy. TECHNIQUE: Radiograph of the operative specimen was performed. COMPARISON: None FINDINGS: The localization wire with breast tissue is seen. BI/Breast Biopsy Specimen IMPRESSION: The specimen shows a localization wire present. Follow-up code: Routine Follow-up Reading Location: [place] [address] CC: Dr. Gareth Mcdaniel MD; TATE Genao ~ Mud Car Worker: Signed [facility] CXR for Line Placementon CXR for Line Placement Normal [facility] Discharge Instructionon 08-03 Discharge Instruction Normal [facility] Frozen Section (charge)on Frozen Section (charge) Normal [facility] Comment on above: Performed By: #### P FSC ####[facility] [address] [place], [place], [id number] H AND P Exam - Surgicalon H&P Exam - Surgical Normal [facility] Lymph Node Injection Onlyon 08-13-2024 Lymph Node Injection Only Normal [facility] MR/POSTOP.ANEon 08-13-2024 MR/POSTOP.ANE Normal [facility] MR/[id number] 08-13-2024 MR/POSTOPAN2 Normal [facility] Operative Reporton Operative Report Normal [facility] [facility] Operative Report Normal [facility] ,Urineon 08-13-2024 Beta HCG ( test) Ql (U) Negative Normal [facility] Comment on above: Result Comment: Very dilute urine specimens, as indicated by a low specificgravity, may not contain outside medical sales representative levels of hCG.If is still suspected, a first morning urinespecimen should be collected 48 hours later and tested. Performed By: #### L 400.7600 ####[facility] [address] [place], [place], [address] Urine testOrdered By: Yovany Rios on 08-13-2024 HCG ( test) Ql (U) Negative [facility] Comment on above: Very dilute urine sp ecimens, as indicated by a low specificgravity, may not contain outside medical sales representative levels of hCG. If is still suspected, a first morning urinespecimen should be collected 48 hours later and tested. Plastic Surgery Visit Report on 07-25-2024 Plastic Surgery Visit Report Normal [facility] Surgery Visit Reporton 07-18 Surgery Visit Report Normal [facility] Chest WITH Contraston 2024 Chest WITH Contrast Normal [facility] Radiation Oncology Visiton 0 07-09-2024 Radiation Oncology Visit Normal [facility] Absolute lymphocyte countOrd ered By: [facility] on 07-08-2024 Lymphocytes Auto (Unsp spec) [#/Vol] 2.20 10*3/uL 0.83-4.51 [facility] Absolute neutrophil countOrd ered By: [facility] St[facility] on 07-08-2024 Neutrophils (Bld) [#/Vol] 3.6 10*3/uL 2.0-7.7 [facility] Albumin to globulin ratioOrd ered By: [facility] on 07-08-2024 Albumin/Globulin [Mass ratio] 1.0 {ratio} 0.9-2.4 [facility] Automated lymphocyte count a s percentage of total leukocytesOrdered By: [facility] Stubbs on 07-08-2024 Lymphocytes/100 WBC Auto (Unsp spec) 34.1 % 19-41 [facility] Basophil percentageOrdered B y: [facility] on 07-08-2024 Basophils/100 WBC (Bld) 0.6 % 0-1 [facility] Bilirubin, totalOrdered By: [facility] Stubbs on 07-08-2024 Bilirubin [Mass/Vol] 0.50 mg/dL 0.20-1.00 [facility] Comment on above: For patients on eltr ombopag therapy, use of Dimension [place] TBIL is not recommended. Blood urea nitrogen (BUN)/cr eatinine ratioOrdered By: [facility] Stubbs on 07-08-2024 Urea nitrogen/Creatinine [Mass ratio] 18.9 mg/mg 10-20 [facility] CBC W/Diff, Automatedon Absolute Lymph 2.20 X10 3/uL Normal 0.83-4.51 [facility] Comment on above: Performed By: #### L 100.0100, L503.6030, L500.4050, L900.0098, L503.6550 ####[facility] [address] [place], [address] Absolute Neut 3.6 X10 3/uL Normal 2.0-7.7 [facility] Comment on above: Performed By: #### L 100.0100, L503.6030, L500.4050, L900.0098, L503.6550 ####[facility] [address] [place], [address] Basophils/100 WBC (Bld) 0.6 % Normal 0-1 [facility] Comment on above: Performed By: #### L 100.0100, L503.6030, L500.4050, L900.0098, L503.6550 ####[facility] [address] [place], [address] Eosinophils/100 WBC (Bld) 1.2 % Normal 0-5 [facility] Comment on above: Performed By: #### L 100.0100, L503.6030, L500.4050, L900.0098, L503.6550 ####[facility] [address] [place], [address] Erythrocyte distribution width (RBC) [Ratio] 18.6 % High 11.6-14.6 [facility] Comment on above: Performed By: #### L 100.0100, L503.6030, L500.4050, L900.0098, L503.6550 ####[facility] [address] [place], [address] Hematocrit (Bld) [Volume fraction] 37.3 % Normal 37-47 [facility] Comment on above: Performed By: #### L 100.0100, L503.6030, L500.4050, L900.0098, L503.6550 ####[facility] [address] [place], [address] Hemoglobin (Bld) [Mass/Vol] 11.2 g/dL Low 12.0-15.0 [facility] Comment on above: Performed By: #### L 100.0100, L503.6030, L500.4050, L900.0098, L503.6550 ####[facility] [address] [place], [address] IG% 0.300 Normal 0.0-0.9 [facility] Comment on above: Result Comment: IG% - Immature Granulocytes (promyelocytes, myelocytes andmetamyelocytes) > 1% indicates that a LEFT SHIFT is Present. Performed By: #### L 100.0100, L503.6030, L500.4050, L900.0098, L503.6550 ####[facility] [address] [place], [address] Lymphocytes/100 WBC (Bld) 34.1 % Normal 19-41 [facility] Comment on above: Performed By: #### L 100.0100, L503.6030, L500.4050, L900.0098, L503.6550 ####[facility] [address] [place], [address] MCH (RBC) [Entitic mass] 21.7 pg Low 27.0-32.0 [facility] Comment on above: Performed By: #### L 100.0100, L503.6030, L500.4050, L900.0098, L503.6550 ####[facility] [address] [place], [address] MCHC (RBC) [Mass/Vol] 30.0 g/dL Low 32-36 [facility] Comment on above: Performed By: #### L 100.0100, L503.6030, L500.4050, L900.0098, L503.6550 ####[facility] [address] [place], [address] MCV (RBC) [Entitic vol] 72.3 fL Low 81-99 [facility] Comment on above: Performed By: #### L 100.0100, L503.6030, L500.4050, L900.0098, L503.6550 ####[facility] [address] [place], [address] Monocytes/100 WBC (Bld) 8.5 % Normal 0-10 [facility] Comment on above: Performed By: #### L 100.0100, L503.6030, L500.4050, L900.0098, L503.6550 ####[facility] [address] [place], [address] Neutrophils/100 WBC (Bld) 55.3 % Normal 47-70 [facility] Comment on above: Performed By: #### L 100.0100, L503.6030, L500.4050, L900.0098, L503.6550 ####[facility] [address] [place], [address] Nucleated RBC (Bld) [#/Vol] 0 10*3/uL Normal 0-5 [facility] Comment on above: Performed By: #### L 100.0100, L503.6030, L500.4050, L900.0098, L503.6550 ####[facility] [address] [place], [address] Platelet mean volume (Bld) [Entitic vol] 10.2 fL Normal 6.2-12.0 [facility] Comment on above: Performed By: #### L 100.0100, L503.6030, L500.4050, L900.0098, L503.6550 ####[facility] [address] [place], [address] Platelets (Bld) [#/Vol] 292 10*3/uL Normal 150-450 [facility] Comment on above: Performed By: #### L 100.0100, L503.6030, L500.4050, L900.0098, L503.6550 ####[facility] [address] [place], [address] RBC (Bld) [#/Vol] 5.16 10*6/uL Normal 4.2-5.4 [facility] Comment on above: Performed By: #### L 100.0100, L503.6030, L500.4050, L900.0098, L503.6550 ####[facility] [address] [place], [address] RDW SD 47.8 fl High 35.1-43.9 [facility] Comment on above: Performed By: #### L 100.0100, L503.6030, L500.4050, L900.0098, L503.6550 ####[facility] [address] [place], [address] WBC (Bld) [#/Vol] 6.5 10*3/uL Normal 4.4-11.0 [facility] Comment on above: Performed By: #### L 100.0100, L503.6030, L500.4050, L900.0098, L503.6550 ####[facility] [address] [place], [address] Carbon dioxide measurementOr dered By: Bandar Stubbs on 07-08-2024 CO2 [Moles/Vol] 27.0 mmol/L 21.0-32.0 [facility] Chloride measurementOrdered By: Bandar Stubbs on 07-08-2024 Chloride [Moles/Vol] 108 mmol/L High 98-107 [facility] Comprehensive Metabolic Prof ilon 07-08-2024 Albumin [Mass/Vol] 4.0 g/dL Normal 3.2-5.0 [facility] Comment on above: Performed By: #### L 100.0100, L503.6030, L500.4050, L900.0098, L503.6550 ####[facility] [address] [place], [address] Albumin/Globulin [Mass ratio] 1.0 {ratio} Normal 0.9-2.4 [facility] Comment on above: Performed By: #### L 100.0100, L503.6030, L500.4050, L900.0098, L503.6550 ####[facility] [address] [place], [address] ALK P 59 U/L Normal 45-117 [facility] Comment on above: Performed By: #### L 100.0100, L503.6030, L500.4050, L900.0098, L503.6550 ####[facility] [address] [place], [address] ALT [Catalytic activity/Vol] 22 U/L Normal 13-56 [facility] Comment on above: Performed By: #### L 100.0100, L503.6030, L500.4050, L900.0098, L503.6550 ####[facility] [address] [place], [address] AST [Catalytic activity/Vol] 16 U/L Normal 15-37 [facility] Comment on above: Performed By: #### L 100.0100, L503.6030, L500.4050, L900.0098, L503.6550 ####[facility] [address] [place], [address] Bilirubin [Mass/Vol] 0.50 mg/dL Normal 0.20-1.00 [facility] Comment on above: Result Comment: For patients on eltrombopag therapy, use of Dimension [place] TBIL is not recommended. Performed By: #### L 100.0100, L503.6030, L500.4050, L900.0098, L503.6550 ####[facility] [address] [place], [address] BUN/CRE 18.9 RATIO Normal 10-20 [facility] Comment on above: Performed By: #### L 100.0100, L503.6030, L500.4050, L900.0098, L503.6550 ####[facility] [address] [place], [address] CA,Total 9.6 mg/dL Normal 8.5-10.1 [facility] Comment on above: Performed By: #### L 100.0100, L503.6030, L500.4050, L900.0098, L503.6550 ####[facility] [address] [place], [address] Chloride [Moles/Vol] 108 mmol/L High 98-107 [facility] Comment on above: Performed By: #### L 100.0100, L503.6030, L500.4050, L900.0098, L503.6550 ####[facility] [address] [place], [address] CO2 [Moles/Vol] 27.0 mmol/L Normal 21.0-32.0 [facility] Comment on above: Performed By: #### L 100.0100, L503.6030, L500.4050, L900.0098, L503.6550 ####[facility] [address] [place], [address] Creatinine [Mass/Vol] 0.64 mg/dL Normal 0.55-1.02 [facility] Comment on above: Result Comment: The validity of the calculated GFR GFRAA in patients over70 years has not been determined. Clinical correlation isessential. Performed By: #### L 100.0100, L503.6030, L500.4050, L900.0098, L503.6550 ####[facility] [address] [place], [address] EST GFR - AA 128 mL/min Normal >60 [facility] Comment on above: Result Comment: Afri can Cymraes GFR Calc Performed By: #### L 100.0100, L503.6030, L500.4050, L900.0098, L503.6550 ####[facility] [address] [place], [address] GAP 5 Normal 5-15 [facility] Comment on above: Performed By: #### L 100.0100, L503.6030, L500.4050, L900.0098, L503.6550 ####[facility] [address] [place], [address] GFR/1.73 sq M.predicted among non-blacks MDRD (S/P/Bld) [Vol rate/Area] 105 mL/min/{1.73_m2} Normal >60 [facility] Comment on above: Result Comment: Non- GFR Calc Performed By: #### L 100.0100, L503.6030, L500.4050, L900.0098, L503.6550 ####[facility] [address] [place], [address] Globulin (S) [Mass/Vol] 4.2 g/dL Normal 2.2-4.2 [facility] Comment on above: Performed By: #### L 100.0100, L503.6030, L500.4050, L900.0098, L503.6550 ####[facility] [address] [place], [address] Glucose [Mass/Vol] 95 mg/dL Normal 74-106 [facility] Comment on above: Performed By: #### L 100.0100, L503.6030, L500.4050, L900.0098, L503.6550 ####[facility] [address] [place], [address] Potassium [Moles/Vol] 4.2 mmol/L Normal 3.5-5.1 [facility] Comment on above: Performed By: #### L 100.0100, L503.6030, L500.4050, L900.0098, L503.6550 ####[facility] [address] [place], [address] Sodium [Moles/Vol] 140 mmol/L Normal 136-145 [facility] Comment on above: Performed By: #### L 100.0100, L503.6030, L500.4050, L900.0098, L503.6550 ####[facility] [address] [place], [address] T PROT 8.2 g/dL Normal 6.4-8.2 [facility] Comment on above: Performed By: #### L 100.0100, L503.6030, L500.4050, L900.0098, L503.6550 ####[facility] [address] [place], [address] Urea nitrogen [Mass/Vol] 12 mg/dL Normal 7-18 [facility] Comment on above: Performed By: #### L 100.0100, L503.6030, L500.4050, L900.0098, L503.6550 ####[facility] [address] [place], [address] Eosinophil percentageOrdered By: Bandar Stubbs on 07-08-2024 Eosinophils/100 WBC (Bld) 1.2 % 0-5 [facility] Erythrocyte distribution wid th ratioOrdered By: Bandar Stubbs on 07-08-2024 Erythrocyte distribution width (RBC) [Ratio] 18.6 % High 11.6-14.6 [facility] Erythrocyte distribution wid th standard deviationOrdered By: Bandar Stubbs on 07-08-2024 Erythrocyte distribution width (RBC) [Entitic vol] 47.8 fL High 35.1-43.9 [facility] Erythrocyte distribution width (RBC) [Ratio] 47.8 fl High 35.1-43.9 [facility] Estimated glomerular filtrat ion rate (GFR) AmericanOrdered By: Bandar Stubbs on 07-08-2024 Estimated GFR (MDRD) Amer 128 mL/min >60 [facility] Comment on above: GFR Calc Ferritinon 07-08-2024 Ferritin [Mass/Vol] 3 ng/mL Low 8-252 [facility] Comment on above: Performed By: #### L 100.0100, L503.6030, L500.4050, L900.0098, L503.6550 ####[facility] [address] [place], [address] Ferritin measurementOrdered By: Bandar Stubbs on 07-08-2024 Ferritin [Mass/Vol] 3 ng/mL Low 8-252 [facility] Glomerular filtration rate ( GFR) estimationOrdered By: Bandar Stubbs on 07-08-2024 Estimated GFR (MDRD) Non-Af Amer 105 mL/min >60 [facility] Comment on above: Non- GFR Calc GFR/1.73 sq M.predicted among non-blacks MDRD (S/P/Bld) [Vol rate/Area] 105 mL/min/{1.73_m2} >60 [facility] Comment on above: Non- GFR Calc Glucose measurementOrdered B y: Bandar Stubbs on 07-08-2024 Glucose [Mass/Vol] 95 mg/dL 74-106 [facility] Hematocrit Auto (Bld) [Volum e fraction]Ordered By: Bandar Stubbs on 07-08-2024 Hematocrit (Bld) [Volume fraction] 37.3 % 37-47 [facility] Hemoglobin measurementOrdere d By: Bandar Stubbs on 07-08-2024 Hemoglobin (Bld) [Mass/Vol] 11.2 g/dL Low 12.0-15.0 [facility] Immature granulocytes/100 WB C Auto (Bld)Ordered By: Bandar Stubbs on 07-08-2024 Immature granulocytes/100 WBC (Bld) 0.300 % 0.0-0.9 [facility] Comment on above: IG% - Immature Granu locytes (promyelocytes, myelocytes and metamyelocytes) > 1% indicates that a LEFT SHIFT is Present. Iron (Unsp spec) [Mass/Mass] Ordered By: Bandar Stubbs on 07-08-2024 Iron [Mass/Vol] 19 ug/dL Low 50-170 [facility] Iron measurement (mass/mass) Ordered By: Bandar Stubbs on 07-08-2024 Iron (Unsp spec) [Mass/Mass] 19 ug/dL Low 50-170 [facility] Iron saturation [Mass fracti on]Ordered By: Bandar Stubbs on 07-08-2024 Iron Saturation 5.0 % Low 15.0-55.0 [facility] Iron+Iron Binding Capacityon 07-08-2024 Iron [Mass/Vol] 19 ug/dL Low 50-170 [facility] Comment on above: Performed By: #### L 100.0100, L503.6030, L500.4050, L900.0098, L503.6550 ####[facility] [address] [place], [address] IRON SATURATION 5.0 Low 15.0-55.0 [facility] Comment on above: Performed By: #### L 100.0100, L503.6030, L500.4050, L900.0098, L503.6550 ####[facility] [address] [place], [address] TIBC 378 ug/dL Normal 250-450 [facility] Comment on above: Performed By: #### L 100.0100, L503.6030, L500.4050, L900.0098, L503.6550 ####[facility] [address] [place], [address] Laboratory - Chemistry and C hemistry - challengeOrdered By: Bandar Stubbs on 07-08-2024 AST [Catalytic activity/Vol] 16 U/L 15-37 [facility] Lymphocytes Auto (Unsp spec) [#/Vol]Ordered By: Bandar Stubbs on 07-08-2024 Lymphocytes (Bld) [#/Vol] 2.20 10*3/uL 0.83-4.51 [facility] Lymphocytes/100 WBC Auto (Un sp spec)Ordered By: Bandar Stubbs on 07-08-2024 Lymphocytes/100 WBC (Bld) 34.1 % 19-41 [facility] MCV (mean corpuscular volume ) determinationOrdered By: Bandar Stubbs on 07-08-2024 MCV (RBC) [Entitic vol] 72.3 fL Low 81-99 [facility] Mean corpuscular hemoglobin (MCH) determinationOrdered By: [facility] on 07-08-2024 MCH (RBC) [Entitic mass] 21.7 pg Low 27.0-32.0 [facility] Mean corpuscular hemoglobin concentration (MCHC) determinationOrdered By: [facility] on 07-08-2024 MCHC (RBC) [Mass/Vol] 30.0 g/dL Low 32-36 [facility] Mean platelet volume determi nationOrdered By: [facility] on 07-08-2024 Platelet mean volume (Bld) [Entitic vol] 10.2 fL 6.2-12.0 [facility] Miscellaneous procedureOrder ed By: Bandar Stubbs on 07-08-2024 Miscellaneous Test Comment SEE SCANNED REPORT [facility] Monocyte percentageOrdered B y: Bandar Stubbs on 07-08-2024 Monocytes/100 WBC (Bld) 8.5 % 0-10 [facility] NATERAon 07-08-2024 NATURA SEE SCANNED REPORT Normal [facility] Comment on above: Performed By: #### L 100.0100, L503.6030, L500.4050, L900.0098, L503.6550 ####[facility] [address] [place], [address] Neutrophil percentageOrdered By: Bandar Stubbs on 07-08-2024 Neutrophils/100 WBC (Bld) 55.3 % 47-70 [facility] Nucleated red blood cell per centageOrdered By: Bandar Stubbs on 07-08-2024 Nucleated RBC/100 WBC (Bld) [Ratio] 0 % 0-5 [facility] Oncology Visit Reporton 020 Oncology Visit Report Normal [facility] Platelet countOrdered By: Deven Stubbs on 07-08-2024 Platelets (Bld) [#/Vol] 292 10*3/uL 150-450 [facility] Potassium measurementOrdered By: Bandar Stubbs on 07-08-2024 Potassium [Moles/Vol] 4.2 mmol/L 3.5-5.1 [facility] RBC Auto (Bld) [#/Vol]Ordere d By: Bandar Stubbs on 07-08-2024 RBC (Bld) [#/Vol] 5.16 10*6/uL 4.2-5.4 [facility] Serum anion gap measurementO rdered By: Bandar Stubbs on 07-08-2024 Anion gap [Moles/Vol] 5 mmol/L 5-15 [facility] Serum globulin measurementOr dered By: Bandar Stubbs on 07-08-2024 Globulin (S) [Mass/Vol] 4.2 g/dL 2.2-4.2 [facility] Serum or plasma alanine moreno otransferase (ALT) measurementOrdered By: Bandar Stubbs on 07-08-2024 ALT [Catalytic activity/Vol] 22 U/L 13-56 [facility] Serum or plasma albumin laurie urement (mass/volume)Ordered By: Bandar Stubbs on 07-08-2024 Albumin [Mass/Vol] 4.0 g/dL 3.2-5.0 [facility] Serum or plasma alkaline geoffrey sphatase measurementOrdered By: Bandar Stubbs on 07-08-2024 ALP [Catalytic activity/Vol] 59 U/L 45-117 [facility] Serum or plasma calcium laurie urement (mass/volume)Ordered By: Bandar Stubbs on 07-08-2024 Calcium [Mass/Vol] 9.6 mg/dL 8.5-10.1 [facility] Serum or plasma creatinine m easurement (mass/volume)Ordered By: Bandar Stubbs on 07-08-2024 Creatinine [Mass/Vol] 0.64 mg/dL 0.55-1.02 [facility] Comment on above: The validity of the calculated GFR & GFRAA in patients over 70 years has not been determined. Clinical correlation is essential. Serum or plasma iron saturat ion measurement (mass fraction)Ordered By: Bandar Stubbs on 07-08-2024 Iron saturation [Mass fraction] 5.0 % Low 15.0-55.0 [facility] Serum or plasma urea nitroge n measurement (mass/volume)Ordered By: Bandar Stubbs on 07-08-2024 Urea nitrogen [Mass/Vol] 12 mg/dL 7-18 [facility] Sodium levelOrdered By: Arlette Stubbs on 07-08-2024 Sodium [Moles/Vol] 140 mmol/L 136-145 [facility] TIBCOrdered By: Bandar portillo on 07-08-2024 Total Iron Binding Capacity 378 ug/dL 250-450 [facility] Total proteinOrdered By: Fabio Stubbs on 07-08-2024 Protein [Mass/Vol] 8.2 g/dL 6.4-8.2 [facility] White blood cell (WBC) count Ordered By: Bandar Stubbs on 07-08-2024 WBC (Bld) [#/Vol] 6.5 10*3/uL 4.4-11.0 [facility] Plastic Surgery Visit Report on 07-02-2024 Plastic Surgery Visit Report Normal [facility] Breast Bilateral W/O and Won 06-24-2024 Breast Bilateral W/O and W Normal [facility] Surgery Visit Reporton 06-20 Surgery Visit Report Normal [facility] THINPREP TIS PAP AND HPV mRN A E6/E7on 06-18-2024 CLINICAL INFORMATION: Normal [facility] Comment on above: Result Comment: None given Performed By: #### 9 0933 #### [facility] [address], [address] [place] [address] Human Resources Intern: Greg Gomes MD COMMENT Normal [facility] Comment on above: Result Comment: EXPL ANATORY NOTE: The Pap is a screening test for cervical cancer. It is not a diagnostic test and is subject to false negative and false positive results. It is most reliable when a satisfactory sample, regularly obtained, is submitted with relevant clinical findings and history, and when the Pap result is evaluated along with historic and current clinical information. Performed By: #### 9 0933 #### [facility] [place] [address] Human Resources Intern: Greg Gomes MD COMMENT: Normal [facility] Comment on above: Result Comment: This Pap test has been evaluated with computer assisted technology. Performed By: #### 9 0933 #### [facility] [address], [address] [place] [address] Human Resources Intern: Greg Gomes MD INSURANCE ADMINISTRATOR: Normal [facility] Comment on above: Result Comment: EMP, CT(ASCP) CT screening location: [place] [address]. Performed By: #### 9 0933 #### [facility] [address], [address] [place] [address] Human Resources Intern: Greg Gomes MD HPV mRNA E6/E7 Not detected Normal Not Detected [facility] Comment on above: Result Comment: Meth odology: Fruit Sorter-Mediated Amplification This assay detects E6/E7 viral messenger RNA (mRNA) from 14 high-risk HPV types (16,18,31,33,35,39,45,51,52,56,58,59,66,68). Cervical sources are required for HPV testing. If a vaginal source from a patient who has had a total hysterectomy with removal of cervix was submitted, please contact the testing laboratory for alternative testing options. For additional information, please refer to http://[email or web address]/faq/DTT818u6 (This link if provided for information/ educational purposes only.) Performed By: #### 9 0933 #### [facility] [address], [address] [place] [address] Human Resources Intern: Greg Gomes MD INTERPRETATION/RESULT: Normal [facility] Comment on above: Result Comment: Cyto logy Results: Negative for intraepithelial lesion or malignancy. Performed By: #### 9 0933 #### [facility] [address], [address] [place] [address] Human Resources Intern: Greg Gomes MD LMP: Normal [facility] Comment on above: Result Comment: None given Performed By: #### 9 0933 #### [facility] [place] [address] Human Resources Intern: Greg Gomes MD PREV. BX: Normal [facility] Comment on above: Result Comment: None given Performed By: #### 9 0933 #### [facility] [place] [address] Human Resources Intern: Greg Gomes MD PREV. PAP: Normal [facility] Comment on above: Result Comment: None given Performed By: #### 9 0933 #### [facility] [place] [address] Human Resources Intern: Greg Gomes MD SOURCE: Normal [facility] Comment on above: Result Comment: Endo cervix Performed By: #### 9 0933 #### [facility] [place] [address] Human Resources Intern: Greg Gomes MD STATEMENT OF ADEQUACY: Normal [facility] Comment on above: Result Comment: Sati sfactory for evaluation. Endocervical/transformation zone component absent. Performed By: #### 9 0933 #### [facility] [place] [address] Human Resources Intern: Greg Gomes MD Panel Informationon 06-17 [id number] SEE NOTE Normal [facility], Inc.; [employer] CLINICAL INFORMATION: SEE NOTE Normal [facility], [facility].; [facility] COMMENT: SEE NOTE Normal [facility], [facility].; [employer] [facility], Inc. INSURANCE ADMINISTRATOR: SEE NOTE Normal [facility].; [facility] HPV mRNA E6/E7 Not detected Normal [facility], [facility].; [employer] [facility], Inc. INTERPRETATION/RESULT: SEE NOTE Normal [facility], Inc.; [facility] [employer], [employer]. LMP: SEE NOTE Normal [facility] [employer].; [facility] PREV. BX: SEE NOTE Normal [email or web address] PREV. PAP: SEE NOTE Normal [employer] SOURCE: SEE NOTE Normal [employer] Inc.; [employer], [employer] STATEMENT OF ADEQUACY: SEE NOTE Normal [facility] [employer] ER (initial)on 06-13-2024 ER (initial) Normal [facility] Comment on above: Performed By: #### P ER ####[facility] [id number] [place], [place], [id number] Surgery Specimen Level Sona 06-13-2024 Surgery Specimen Level IV Normal [facility] Comment on above: Performed By: #### P SUIV ####[facility] [address] [place], [place], [id number] Surgery Visit Reporton 06-13 Surgery Visit Report Normal [facility] CBC (INCLUDES DIFF/PLT)on Basophils (Bld) [#/Vol] 0.049 10*3/uL Normal 0-200 [facility] Comment on above: Performed By: #### 1 023, 7599, 1568 #### [facility] [address], [address] [place] [address] Human Resources Intern: Greg Gomes MD Basophils/100 WBC (Bld) 1.0 % Normal [facility] Comment on above: Performed By: #### 1 230, 7599, 5299 #### [facility] [address] , [address] [place] [address] Human Resources Intern: Greg Gomes MD Eosinophils (Bld) [#/Vol] 0.098 10*3/uL Normal 15-500 [facility] Comment on above: Performed By: #### 1 230, 7599, 8099 #### [facility] [address], [address] [place] [address] Human Resources Intern: Greg Gomes MD Eosinophils/100 WBC (Bld) 2.0 % Normal [facility] Comment on above: Performed By: #### 1 023, 7599, 6399 #### [facility] of [place] [address] Human Resources Intern: Greg Gomes MD Erythrocyte distribution width (RBC) [Ratio] 15.4 % High 11.0-15.0 [facility] Comment on above: Performed By: #### 1 023, 7599, 6399 #### [facility] of [address], [address] [place] [address] Human Resources Intern: Greg Gomes MD Hematocrit (Bld) [Volume fraction] 38.7 % Normal 35.0-45.0 [facility] Comment on above: Performed By: #### 1 023, 7599, 6399 #### [facility] [place] [address] Human Resources Intern: Greg Gomes MD Hemoglobin (Bld) [Mass/Vol] 11.3 g/dL Low 11.7-15.5 [facility] Comment on above: Performed By: #### 1 230, 7599, 6399 #### [facility] [place] [address] Human Resources Intern: Greg Gomes MD Lymphocytes (Bld) [#/Vol] 1.96 10*3/uL Normal 850-3900 [facility] Comment on above: Performed By: #### 1 230, 7599, 6399 #### [facility] [place] [address] Human Resources Intern: Greg Gomes MD Lymphocytes/100 WBC (Bld) 40.0 % Normal [facility] Comment on above: Performed By: #### 1 023, 7599, 6399 #### [facility] [place] [address] Human Resources Intern: Greg Gomes MD MCH (RBC) [Entitic mass] 21.6 pg Low 27.0-33.0 [facility] Comment on above: Performed By: #### 1 230, 7599, 6399 #### [facility] of [address], [address] [place] [address] Human Resources Intern: Greg Gomes MD MCHC (RBC) [Mass/Vol] 29.2 g/dL Low 32.0-36.[address] [facility] Comment on above: Result Comment: For adults, a slight decrease in the calculated MCHC value (in the range of 30 to 32 g/dL) is most likely not clinically significant; however, it should be interpreted with caution in correlation with other red cell parameters and the patient's clinical condition. Performed By: #### 1 023, 7599, 6399 #### [facility] [place] [address] Human Resources Intern: Greg Gomes MD MCV (RBC) [Entitic vol] 73.9 fL Low 80.0-100.0 [facility] Comment on above: Performed By: #### 1 230, 7599, 6399 #### [facility] [place] [address] Human Resources Intern: Greg Gomes MD Monocytes (Bld) [#/Vol] 0.436 10*3/uL Normal 200-950 [facility] Comment on above: Performed By: #### 1 023, 7599, 6399 #### [facility] [place] [address] Human Resources Intern: Greg Gomes MD Monocytes/100 WBC (Bld) 8.9 % Normal [facility] Comment on above: Performed By: #### 1 023, 7599, 6399 #### [facility] [place] [address] Human Resources Intern: Greg Gomes MD Neutrophils (Bld) [#/Vol] 2.357 10*3/uL Normal 9158-2175 [facility] Comment on above: Performed By: #### 1 023, 7599, 6399 #### [facility] [place] [address] Human Resources Intern: Greg Gomes MD Neutrophils/100 WBC (Bld) 48.1 % Normal [facility] Comment on above: Performed By: #### 1 0231, 7600, 6399 #### [facility] of [address], [address] [place] [address] Human Resources Intern: Greg Gomes MD Platelet mean volume (Bld) [Entitic vol] 11.0 fL Normal 7.5-12.5 [facility] Comment on above: Performed By: #### 1 0231, 7599, 6399 #### [facility] of [address], [address] [place] [address] Human Resources Intern: Greg Gomes MD Platelets (Bld) [#/Vol] 266 10*3/uL Normal 140-400 [facility] Comment on above: Performed By: #### 1 023, 7599, 6399 #### [facility] of [address], [address] [place] [address] Human Resources Intern: Greg Gomes MD RBC (Bld) [#/Vol] 5.24 10*6/uL High 3.80-5.10 [facility] Comment on above: Performed By: #### 1 023, 7599, 6399 #### [facility] of [address], [address] [place] [address] Human Resources Intern: Greg Gomes MD WBC (Bld) [#/Vol] 4.9 10*3/uL Normal 3.8-10.8 [facility] Comment on above: Performed By: #### 1 023, 7599, 6399 #### [facility] of [address], [address] [place] [address] Human Resources Intern: Greg Gomes MD COMPREHENSIVE METABOLIC PANE [facility] 06-11-2024 Albumin [Mass/Vol] 4.5 g/dL Normal 3.6-5.1 [facility] Comment on above: Performed By: #### 1 0231, 7599, 6399 #### [facility] of [address], [address] [place] [address] Human Resources Intern: Greg Gomes MD Albumin/Globulin [Mass ratio] 2.0 {ratio} Normal 1.0-2.5 [facility] Comment on above: Performed By: #### 1 0231, 7599, 6399 #### [facility] of [address], [address] [place] [address] Human Resources Intern: Greg Gomes MD ALP [Catalytic activity/Vol] 49 U/L Normal 31-125 [facility] Comment on above: Performed By: #### 1 0231, 7599, 6399 #### [facility] of [address], [address] [place] [address] Human Resources Intern: Greg Gomes MD ALT [Catalytic activity/Vol] 44 U/L High 6-29 [facility] Comment on above: Performed By: #### 1 023, 7599, 6399 #### [facility] of [address], [address] [place] [address] Human Resources Intern: Greg Gomes MD AST [Catalytic activity/Vol] 31 U/L Normal 10-35 [facility] Comment on above: Performed By: #### 1 023, 7599, 6399 #### [facility] [place] [address] Human Resources Intern: Greg Gomes MD Bilirubin [Mass/Vol] 0.4 mg/dL Normal 0.2-1.2 [facility] Comment on above: Performed By: #### 1 023, 7599, 6399 #### [facility] [place] [address] Human Resources Intern: Greg Gomes MD BUN/CREATININE RATIO SEE NOTE: Normal 6-22 [facility] Comment on above: Result Comment: Not Reported: BUN and Creatinine are within reference range. Performed By: #### 1 0231, 7600, 6399 #### [facility] [address], [address] [place] [address] Human Resources Intern: Greg Gomes MD Calcium [Mass/Vol] 9.2 mg/dL Normal 8.6-10.2 [facility] Comment on above: Performed By: #### 1 230, 7599, 6399 #### [facility] [place] [address] Human Resources Intern: Greg Gomes MD Chloride [Moles/Vol] 106 mmol/L Normal 98-110 [facility] Comment on above: Performed By: #### 1 230, 7599, 6399 #### [facility] of [address], [address] [place] [address] Human Resources Intern: Greg Gomes MD CO2 [Moles/Vol] 26 mmol/L Normal 20-32 [facility] Comment on above: Performed By: #### 1 230, 7599, 6399 #### [facility] [place] [address] Human Resources Intern: Greg Gomes MD Creatinine [Mass/Vol] 0.66 mg/dL Normal 0.50-0.[address] [facility] Comment on above: Performed By: #### 1 230, 7599, 6399 #### [facility] [place] [address] Human Resources Intern: Greg Gomes MD GFR/1.73 sq M.predicted among non-blacks MDRD (S/P/Bld) [Vol rate/Area] 107 mL/min/{1.73_m2} Normal > OR = 60 [facility] Comment on above: Performed By: #### 1 230, 7599, 6399 #### [facility] [place] [address] Human Resources Intern: Greg Gomes MD Globulin (S) [Mass/Vol] 2.3 g/dL Normal 1.9-3.7 [facility] Comment on above: Performed By: #### 1 023, 7599, 6399 #### [facility] [place] [address] Human Resources Intern: Greg Gomes MD Glucose [Mass/Vol] 92 mg/dL Normal 65-99 [facility] Comment on above: Result Comment: Fasting reference interval Performed By: #### 1 0231, 7599, 6399 #### [facility] of [address], [address] [place] [address] Human Resources Intern: Greg Gomes MD Potassium [Moles/Vol] 4.4 mmol/L Normal 3.5-5.3 [facility] Comment on above: Performed By: #### 1 0231, 7599, 6399 #### [facility] of [address], [address] [place] [address] Human Resources Intern: Greg Gomes MD Protein [Mass/Vol] 6.8 g/dL Normal 6.1-8.1 [facility] Comment on above: Performed By: #### 1 023, 7599, 6399 #### [facility] [place] [address] Human Resources Intern: Greg Gomes MD Sodium [Moles/Vol] 138 mmol/L Normal 135-146 [facility] Comment on above: Performed By: #### 1 023, 7599, 6399 #### [facility] [place] [address] Human Resources Intern: Greg Gomes MD Urea nitrogen [Mass/Vol] 12 mg/dL Normal 7-25 [facility] Comment on above: Performed By: #### 1 023, 7599, 6399 #### [facility] [place] [address] Human Resources Intern: Greg Gomes MD LIPID PANEL, STANDARD Cholesterol [Mass/Vol] 165 mg/dL Normal <200 [facility] Comment on above: Performed By: #### 1 0231, 7599, 6399 #### [facility] [place] [address] Human Resources Intern: Greg Gomes MD Cholesterol in HDL [Mass/Vol] 59 mg/dL Normal > OR = 50 [facility] Comment on above: Performed By: #### 1 0231, 7599, 6399 #### [facility] [address], [address] [place] [address] Human Resources Intern: Greg Gomes MD Cholesterol in LDL [Mass/Vol] 90 mg/dL Normal [facility] Comment on above: Result Comment: Refe rence range: <100 Desirable range <100 mg/dL for primary prevention; <70 mg/dL for patients with CHD or diabetic patients with > or = 2 CHD risk factors. LDL-C is now calculated using the Alonzo calculation, which is a validated novel method providing better accuracy than the Friedewald equation in the estimation of LDL-C. [place] SCHMITZ et al. MARKUS. 2013;310(64): 4104-1274 (http://education.IndianStage/faq/PFV126) Performed By: #### 1 023, 7599, 7899 #### [facility] [address], [address] [place] [address] Human Resources Intern: Greg Gomes MD Cholesterol.total/Chol esterol in HDL [Mass ratio] 2.8 {ratio} Normal <5.0 [facility] Comment on above: Performed By: #### 1 230, 127, 2739 #### [facility] [place] [address] Human Resources Intern: Greg Gomes MD NON HDL CHOLESTEROL 106 mg/dL (calc) Normal <130 [facility] Comment on above: Result Comment: For patients with diabetes plus 1 major ASCVD risk factor, treating to a non-HDL-C goal of <100 mg/dL (LDL-C of <70 mg/dL) is considered a therapeutic option. Performed By: #### 1 0231, 0, 3299 #### [facility] [place] [address] Human Resources Intern: Greg Gomes MD Triglyceride [Mass/Vol] 69 mg/dL Normal <150 [facility] Comment on above: Performed By: #### 1 023, 7380, 8899 #### [facility] [place] [address] Human Resources Intern: Greg Gomes MD 3D MAMM BILAT DIAGNOSTICon 0 06-10-2024 3D MAMM BILAT DIAGNOSTIC [place] [address] Patient: SUSAN LIN Phone#: : 1975 Age: 48 Gender: F Pt. Type: Out Account: [id number] Location: 2 Ordering: ROMELIA MARTIN Exam Date: 06/10/2024/13:30 Family Phys: Charge Code: [id number] Physician: [place] Order #: [id number] Dose#: PROCEDURE: BILATERAL DIAGNOSTIC BREAST TOMOSYNTHESIS MAMMOGRAM WITH CAD COMPARISON: None. INDICATIONS: Left breast lump. BREAST COMPOSITION: Heterogeneously dense, which may obscure small masses. FINDINGS: DIAGNOSTIC CATEGORY 0--INCOMPLETE: NEED ADDITIONAL IMAGING EVALUATION. LEFT BREAST: ASYMMETRY visible on only the cc view, located in the lateral breast, at the posterior depth, with size of approximately 9x7 mm. RIGHT BREAST: No significant suspicious finding. RECOMMENDATIONS: ULTRASOUND: LEFT BREAST --We will perform a same day ultrasound and provide an additional report. PLEASE NOTE: A NORMAL MAMMOGRAM DOES NOT EXCLUDE THE POSSIBILITY OF BREAST CANCER. A CLINICALLY SUSPICIOUS PALPABLE LUMP SHOULD BE BIOPSIED. THIS FACILITY UTILIZES A REMINDER SYSTEM TO ENSURE THAT ALL PATIENTS RECEIVE REMINDER LETTERS FOR APPOINTMENTS. THIS INCLUDES REMINDERS FOR ROUTINE MAMMOGRAMS, DIAGNOSITC MAMMOGRAMS, OR OTHER BREAST IMAGING INTERVENTIONS WHEN APPROPRIATE. THIS PATIENT WILL BE PLACED IN THE APPROPRIATE REMINDER SYSTEM. Dictated by: Brook Apple MD on 06/10/2024 at 13:52 Approved by: Brook Apple MD on 06/10/2024 at 14:03 Normal [facility] - Chemistry and C hemistry - challengeon 06-10-2024 Albumin [Mass/Vol] 4.5 g/dL Normal 3.6 - 5.1 g/dL [facility] Albumin/Globulin [Mass ratio] 2.0 {ratio} Normal 1.0 - 2.5 [facility], [facility].; [facility] ALP [Catalytic activity/Vol] 49 U/L Normal 31 - 125 U/L [facility], [facility]. ALT [Catalytic activity/Vol] 44 U/L Abnormal 6 - 29 U/L [facility].; [facility], [facility]. AST [Catalytic activity/Vol] 31 U/L Normal 10 - 35 U/L [facility], [facility].; [facility], [facility] Bilirubin [Mass/Vol] 0.4 mg/dL Normal 0.2 - 1 .2 mg/dL [facility].; [facility], [facility]. Calcium [Mass/Vol] 9.2 mg/dL Normal 8.6 - 10. 2 mg/dL [facility], [facility].; [facility], [facility] Chloride [Moles/Vol] 106 mmol/L Normal 98 - 11 0 mmol/L [facility].; [facility], [facility]. Cholesterol [Mass/Vol] 165 mg/dL Normal [facility], [facility] Cholesterol in HDL [Mass/Vol] 59 mg/dL Normal [facility].; [facility], [facility]. Cholesterol in LDL [Mass/Vol] 90 mg/dL Normal [facility], [facility].; [facility], [facility]. CO2 [Moles/Vol] 26 mmol/L Normal 20 - 32 mmol/L [facility].; [facility], [facility]. Creatinine [Mass/Vol] 0.66 mg/dL Normal 0.50 - 0.99 mg/dL [facility], [facility].; [facility], [facility]. GFR/1.73 sq M.predicted among non-blacks MDRD (S/P/Bld) [Vol rate/Area] 107 mL/min/{1.73_m2} Normal [facility], [facility].; [facility], [facility]. Glucose [Mass/Vol] 92 mg/dL Normal 65 - 99 mg/dL [facility], [facility].; [facility], [facility]. Potassium [Moles/Vol] 4.4 mmol/L Normal 3.5 - 5.3 mmol/L [facility], [facility].; [facility], [facility] Protein [Mass/Vol] 6.8 g/dL Normal 6.1 - 8.1 g/dL [facility].; [facility]. Sodium [Moles/Vol] 138 mmol/L Normal 135 - 146 mmol/L [facility].; [facility] Triglyceride [Mass/Vol] 69 mg/dL Normal [facility].; [facility], [facility] Urea nitrogen [Mass/Vol] 12 mg/dL Normal 7 - 25 mg/dL [facility].; [facility] Laboratory - Hematology and Cell countson 06-10-2024 Basophils (Bld) [#/Vol] 0.049 10*3/uL Normal 0 - 200 {cells/uL} [facility].; [facility] Basophils/100 WBC (Bld) 1.0 % Normal [facility]; [facility], [facility] Eosinophils (Bld) [#/Vol] 0.098 10*3/uL Normal 15 - 500 {cells/uL} [facility].; [facility] Eosinophils/100 WBC (Bld) 2.0 % Normal [facility]; [facility] Erythrocyte distribution width (RBC) [Ratio] 15.4 % Abnormal 11.0 - 15.0 % [facility].; [facility], [facility] Hematocrit (Bld) [Volume fraction] 38.7 % Normal 35.0 - 45.0 % [facility], [facility].; [facility], [facility] Hemoglobin (Bld) [Mass/Vol] 11.3 g/dL Abnormal 11.7 - 15.5 g/dL [facility].; [facility], [facility]. Lymphocytes (Bld) [#/Vol] 1.96 10*3/uL Normal 850 - 3900 {cells/uL} [facility].; [facility] Lymphocytes/100 WBC (Bld) 40.0 % Normal [facility].; [facility], [facility]. MCH (RBC) [Entitic mass] 21.6 pg Abnormal 27.0 - 33.0 pg [facility].; [facility], [facility]. MCHC (RBC) [Mass/Vol] 29.2 g/dL Abnormal 32.0 - 36.0 g/dL [employer] [facility], Inc.; [employer] MCV (RBC) [Entitic vol] 73.9 fL Abnormal 80.0 - 100.0 fL [employer] Monocytes (Bld) [#/Vol] 0.436 10*3/uL Normal 200 - 950 {cells/uL} [employer] Monocytes/100 WBC (Bld) 8.9 % Normal [employer] Neutrophils (Bld) [#/Vol] 2.357 10*3/uL Normal 1500 - 7800 {cells/uL} [employer] Neutrophils/100 WBC (Bld) 48.1 % Normal [employer] Platelet mean volume (Bld) [Entitic vol] 11.0 fL Normal 7.5 - 12.5 fL [employer] Platelets (Bld) [#/Vol] 266 10*3/uL Normal 140 - 400 [employer] RBC (Bld) [#/Vol] 5.24 10*6/uL Abnormal 3.80 - 5.10 {Million/u L} [employer] WBC (Bld) [#/Vol] 4.9 10*3/uL Normal 3.8 - 10.8 [employer] No Panel Informationon 06-10 BUN/CREATININE RATIO SEE NOTE: Normal 6 - 22 [facility] [employer] CHOL/HDLC RATIO 2.8 Normal [employer] GLOBULIN 2.3 Normal 1.9 - 3.7 [employer] NON HDL CHOLESTEROL 106 Normal [facility] [employer] US BREAST LT UNILATERAL COMP LETEon 06-10-2024 BREAST LT UNILATERAL COMPLETE [place] [address] Patient: SUSAN LIN Phone#: : 1975 Age: 48 Gender: F Pt. Type: Out Account: [id number] Location: [facility] Ordering: ROMELIA MARTIN Exam Date: 06/10/2024/13:50 Family Phys: Charge Code: [id number] Physician: [place] Order #: [id number] Dose#: PROCEDURE: ULTRASOUND BREAST LT COMPARISON: None. INDICATIONS: Left breast mass. TECHNIQUE: Breast ultrasound was performed, with evaluation focusing on all four quadrants. FINDINGS: DIAGNOSTIC CATEGORY 5--HIGHLY SUGGESTIVE OF MALIGNANCY: FINDING(S) HAS A HIGH PROBABILITY OF BEING MALIGNANT; LEFT BREAST: Solid suspicious-appearing lesion, hypoechoic echotexture, mid-breast depth, 2 o'clock position, and [id number] mm size. LEFT AXILLARY: Abnormal-appearing lymph node in the axilla. The cortex is lobulated and thickened measuring up to 0.6 cm in thickness. There is at least one other similar appearing abnormal axillary lymph node. RECOMMENDATIONS: ULTRASOUND-GUIDED CORE BIOPSY: LEFT BREAST AND AXILLARY LYMPH NODE. This report was communicated by telephone to Romelia Martin PA-C at the dictation time indicated below. PLEASE NOTE: A NORMAL MAMMOGRAM DOES NOT EXCLUDE THE POSSIBILITY OF BREAST CANCER. A CLINICALLY SUSPICIOUS PALPABLE LUMP SHOULD BE BIOPSIED. Dictated by: Brook Apple MD on 06/10/2024 at 14:51 Approved by: Brook Apple MD on 06/10/2024 at 14:59 Normal [facility] - Hematology and Cell countson 03-26-2019 Basophils (Bld) [#/Vol] 30 {Cells}/uL Normal 0 - 200 {Cells}/uL [employer] Basophils/100 WBC (Bld) 0.5 % Normal 0 - 1 % [employer], [employer] Eosinophils (Bld) [#/Vol] 210 {Cells}/uL Normal 15 - 500 {Cells}/uL [employer] Eosinophils/100 WBC (Bld) 3.4 % Normal 0 - 4 % [facility], [facility] Erythrocyte distribution width (RBC) [Ratio] 14.7 % Normal 11.0 - 15.0 % [facility].; [facility], [facility] Hematocrit (Bld) [Volume fraction] 39.2 % Normal 35.0 - 45.0 % [facility], [facility].; [facility], [facility] Hemoglobin (Bld) [Mass/Vol] 12.3 g/dL Normal 11.7 - 15.5 g/dL [facility].; [facility], [facility] Lymphocytes (Bld) [#/Vol] 1970 {Cells}/uL Normal 850 - 3900 {Cells}/uL [facility], [facility] Lymphocytes/100 WBC (Bld) 31.6 % Normal 12 - 47 % [facility].; [facility], [facility] MCH (RBC) [Entitic mass] 24.2 pg Abnormal 27.0 - 33.0 PG [facility].; [facility], [facility]. MCHC (RBC) [Mass/Vol] 31.4 g/dL Abnormal 32.0 - 36.0 g/dL [facility].; [facility], [facility]. MCV (RBC) [Entitic vol] 77.0 fL Abnormal 80.0 - 100.0 fL [facility].; [facility], [facility]. Monocytes (Bld) [#/Vol] 460 {Cells}/uL Normal 200 - 950 {Cells}/uL [facility].; [facility], [facility]. Monocytes/100 WBC (Bld) 7.4 % Normal 4 - 12 % [facility], [facility]. Neutrophils (Bld) [#/Vol] 3550 {Cells}/uL Normal 1500 - 7800 {Cells}/uL [facility].; [facility], [facility]. Neutrophils/100 WBC (Bld) 57.1 % Normal 40 - 75 % [facility], [facility].; [employer] [facility], [facility]. Platelet mean volume (Bld) [Entitic vol] 10.5 fL Normal 7.5 - 12.5 fL [facility].; [facility], [facility]. Platelets (Bld) [#/Vol] 242 10*3/uL Normal 140 - 400 10*3/uL [facility], [facility].; [facility], [facility]. RBC (Bld) [#/Vol] 5.09 10*6/uL Normal 3.80 - 5.10 10*6/uL [facility] Inc.; [facility], [facility]. WBC (Bld) [#/Vol] 6.2 10*3/uL Normal 3.8 - 10.8 10*3/uL [facility], [facility].; [employer], [employer] Laboratory - Chemistry and C hemistry - challengeon 01-11-2019 Albumin [Mass/Vol] 4.6 g/dL Normal 3.6 - 5.1 g/dL [facility], [facility].; [employer], [facility]. Albumin/Globulin [Mass ratio] 1.8 {ratio} Normal 1.0 - 2.5 [facility].; [facility], [facility]. ALP [Catalytic activity/Vol] 49 U/L Normal 33 - 115 U/L [facility], [facility].; [employer], [employer]. ALT [Catalytic activity/Vol] 12 U/L Normal 6 - 29 U/L [facility].; [employer] [facility], Inc. AST [Catalytic activity/Vol] 18 U/L Normal 10 - 30 U/L [facility], [facility].; [employer], [facility]. Bilirubin [Mass/Vol] 0.4 mg/dL Normal 0.2 - 1 .2 mg/dL [facility], [facility].; [employer] Calcium [Mass/Vol] 9.8 mg/dL Normal 8.6 - 10. 2 mg/dL [facility], [facility].; [employer] [facility], [facility]. Chloride [Moles/Vol] 103 mmol/L Normal 98 - 11 0 mmol/L [facility], [facility].; [employer] Cholesterol [Mass/Vol] 186 mg/dL Normal [facility], [facility].; [employer] Cholesterol in HDL [Mass/Vol] 71 mg/dL Normal [facility], [facility].; [facility], Inc[employer] Cholesterol in LDL [Mass/Vol] 100 mg/dL Normal 0 - 100 mg/dL [facility], [facility].; [facility], [facility]. Cholesterol non HDL [Mass/Vol] 115 mg/dL Normal [facility], [facility].; [facility], [facility]. Cholesterol.total/Chol esterol in HDL [Mass ratio] 2.6 {ratio} Normal [facility], [facility].; [facility], [facility]. CO2 [Moles/Vol] 29 mmol/L Normal 20 - 32 mmol/L [facility], [facility].; [employer] [facility], [facility]. Creatinine [Mass/Vol] 0.72 mg/dL Normal 0.50 - 1.10 mg/dL [facility], [facility].; [facility], [facility]. GFR/1.73 sq M.predicted among blacks MDRD (S/P/Bld) [Vol rate/Area] 118 {ML/MIN/1.73M2} Normal [facility], [facility].; [facility], [facility]. GFR/1.73 sq M.predicted MDRD (S/P/Bld) [Vol rate/Area] 102 {ML/MIN/1.73M2} Normal [facility], [facility].; [employer] [facility], [facility]. Globulin (S) [Mass/Vol] 2.7 g/dL Normal 1.9 - 3.7 g/dL [facility], [facility].; [employer] [facility], Inc. Glucose [Mass/Vol] 91 mg/dL Normal 65 - 99 mg/dL [facility], [facility].; [employer] [facility], Inc. Potassium [Moles/Vol] 4.8 mmol/L Normal 3.5 - 5.3 mmol/L [facility], [facility].; [employer] [facility], [facility]. Protein [Mass/Vol] 7.3 g/dL Normal 6.1 - 8.1 g/dL [facility], [facility].; [employer] Sodium [Moles/Vol] 139 mmol/L Normal 135 - 146 mmol/L [facility], [facility].; [employer] Triglyceride [Mass/Vol] 68 mg/dL Normal [facility], [facility].; [employer] [facility], Inc. Urea nitrogen [Mass/Vol] 12 mg/dL Normal 7 - 25 mg/dL [facility].; [employer] Urea nitrogen/Creatinine [Mass ratio] 16.4 mg/mg Normal 6 - 22 [employer] Laboratory - Hematology and Cell countson 01-11-2019 Basophils (Bld) [#/Vol] 60 {Cells}/uL Normal 0 - 200 {Cells}/uL [facility].; [employer] Basophils/100 WBC (Bld) 1.4 % Abnormal 0 - 1 % [employer].; [employer], [facility]. Eosinophils (Bld) [#/Vol] 130 {Cells}/uL Normal 15 - 500 {Cells}/uL [employer] Eosinophils/100 WBC (Bld) 2.9 % Normal 0 - 4 % [employer].; [employer] Erythrocyte distribution width (RBC) [Ratio] 22.9 % Abnormal 11.0 - 15.0 % [employer] [facility].; [employer] Hematocrit (Bld) [Volume fraction] 37.5 % Normal 35.0 - 45.0 % [employer].; [employer], [employer]. Hemoglobin (Bld) [Mass/Vol] 11.0 g/dL Abnormal 11.7 - 15.5 g/dL [facility].; [employer], [facility]. Lymphocytes (Bld) [#/Vol] 1670 {Cells}/uL Normal 850 - 3900 {Cells}/uL [employer].; [employer]. Lymphocytes/100 WBC (Bld) 37.8 % Normal 12 - 47 % [employer].; [employer], [employer]. MCH (RBC) [Entitic mass] 21.2 pg Abnormal 27.0 - 33.0 PG [employer].; [employer], [employer]. MCHC (RBC) [Mass/Vol] 29.3 g/dL Abnormal 32.0 - 36.0 g/dL [employer] [facility], [employer].; [employer], [employer]. MCV (RBC) [Entitic vol] 72.4 fL Abnormal 80.0 - 100.0 fL [facility].; [employer]. Monocytes (Bld) [#/Vol] 420 {Cells}/uL Normal 200 - 950 {Cells}/uL [employer]. Monocytes/100 WBC (Bld) 9.5 % Normal 4 - 12 % [employer], [employer]. Neutrophils (Bld) [#/Vol] 2140 {Cells}/uL Normal 1500 - 7800 {Cells}/uL [employer]. Neutrophils/100 WBC (Bld) 48.4 % Normal 40 - 75 % [employer].; [employer], [employer]. Platelet mean volume (Bld) [Entitic vol] 11.1 fL Normal 7.5 - 12.5 fL [employer], [employer]. Platelets (Bld) [#/Vol] 232 10*3/uL Normal 140 - 400 10*3/uL [employer].; [employer]. RBC (Bld) [#/Vol] 5.18 10*6/uL Abnormal 3.80 - 5.10 10*6/uL [employer].; [employer], [employer]. WBC (Bld) [#/Vol] 4.4 10*3/uL Normal 3.8 - 10.8 10*3/uL [employer]. Laboratory - Chemistry and C hemistry - challengeon 04-12-2010 Bilirubin Ql (U) Negative Normal [employer]. Ketones Ql (U) Negative Normal [employer]. pH (U) 8.5 [pH] Normal 4.6 - 8.0 [employer].; [employer]. Specific gravity (U) [Rel density] 1.015 Normal 1.001 - 1.025 [employer].; [employer]. Laboratory - Hematology and Cell countson 04-12-2010 Hemoglobin Ql (U) Negative Normal [employer].; [employer]. Laboratory - Specimen inform ationon 04-12-2010 Appearance (U) clear Normal [employer]. Color (U) yellow Normal [employer].; [employer]. Laboratory - Urinalysison Glucose Test strip (U) [Mass/Vol] n Normal [employer]. Leukocyte esterase Test strip Ql (U) trace Normal [employer].; [employer]. Nitrite Ql (U) Negative Normal [employer].; [employer]. Protein Ql (U) 30 mg/dL Abnormal [employer].; [employer]. No Panel Informationon 04-12 UA - UROBILINOGEN 0.2 mg/dL Normal [employer].; [employer]. Vital Signs Date Time Vital Sign Value Performing Clinician Facility 04-14-2025 13:57-0500 Body height 175.26 cm Romelia Martin PA Work Phone: 1(235)487-508973 [address] 04-14-2025 13:57-0500 Body mass index (BMI) [Ratio] 24.2 kg/m2 Romelia Martin PA Work Phone: 1(901)577-849881 [place] [address] 04-14-2025 13:57-0500 Body temperature 98.2 [degF] Romelia Martin PA Work Phone: 1(042)577-056081 [place] [address] 04-14-2025 13:57-0500 Body weight 74.41 kg Romelia Martin PA Work Phone: 2(107)416-292281 [place] [address] 04-14-2025 13:57-0500 Diastolic blood pressure 70 mm[Hg] Romelia Martin PA Work Phone: 3(222)692-676081 [place] [address] 04-14-2025 13:57-0500 Heart rate 63 /min Romelia Martin PA Work Phone: 7(849)055-012981 [place] [address] 04-14-2025 13:57-0500 Respiratory rate 18 /min Romelia Martin PA Work Phone: [facility] 04-14-2025 13:57-0500 SaO2% (BldA) [Mass fraction] 99 % Romelia Martin PA Work Phone: [facility] 04-14-2025 13:57-0500 Systolic blood pressure 125 mm[Hg] Romelia Martin PA Work Phone: [facility] 04-09-2025 09:37-0500 Body mass index (BMI) [Ratio] 23.8 kg/m2 Romelia Martin PA Work Phone: 7(190)542-223481 [place] [address] 04-09-2025 09:37-0500 Body temperature 97.1 [degF] Romelia Martin PA Work Phone: 9(788)168-917273 [address] 04-09-2025 09:37-0500 Body weight 73.08 kg Romelia Martin PA Work Phone: 0(824)891-551573 [address] 04-09-2025 09:37-0500 Diastolic blood pressure 74 mm[Hg] Romelia Martin PA Work Phone: 5(305)278-578381 [place] [address] 04-09-2025 09:37-0500 Heart rate 70 /min Romelia Martin PA Work Phone: 1(091)603-424276 [place] [address] 04-09-2025 09:37-0500 Respiratory rate 18 /min Romelia Martin PA Work Phone: 7(410)517-536676 [place] [address] 04-09-2025 09:37-0500 SaO2% (BldA) [Mass fraction] 100 % Romelia Martin PA Work Phone: 3(390)236-374481 [place] [address] 04-09-2025 09:37-0500 Systolic blood pressure 113 mm[Hg] Romelia Martin PA Work Phone: 3(805)101-688081 [place] [address] 04-09-2025 08:50-0500 Body mass index (BMI) [Ratio] 23.8 kg/m2 Romelia Martin PA Work Phone: 9(906)170-080181 [place] [address] 04-09-2025 08:50-0500 Body weight 73.17 kg Romelia Martin PA Work Phone: 0(989)238-990281 [place] [address] 04-09-2025 08:50-0500 Diastolic blood pressure 74 mm[Hg] Romelia Martin PA Work Phone: [facility] 04-09-2025 08:50-0500 Systolic blood pressure 113 mm[Hg] Romelia Martin PA Work Phone: [facility] 04-02-2025 09:53-0400 Body mass index (BMI) [Ratio] 24 kg/m2 Romelia Martin PA Work Phone: [facility] 04-02-2025 09:53-0400 Body temperature 96.9 [degF] Romelia Martin PA Work Phone: [facility] 04-02-2025 09:53-0400 Body weight 73.7 kg Romelia Martin PA Work Phone: [facility] 04-02-2025 09:53-0400 Diastolic blood pressure 72 mm[Hg] Romelia Martin PA Work Phone: [facility] 04-02-2025 09:53-0400 Heart rate 72 /min Romelia Martin PA Work Phone: [facility] 04-02-2025 09:53-0400 Respiratory rate 16 /min Romelia Martin PA Work Phone: [facility] 04-02-2025 09:53-0400 SaO2% (BldA) [Mass fraction] 100 % Romelia Martin PA Work Phone: [facility] 04-02-2025 09:53-0400 Systolic blood pressure 111 mm[Hg] Romelia Martin PA Work Phone: [facility] 03-26-2025 09:48-0400 Body height 175.26 cm Romelia Martin PA Work Phone: [facility] 03-26-2025 09:48-0400 Body mass index (BMI) [Ratio] 24.2 kg/m2 Romelia Martin PA Work Phone: [facility] 03-26-2025 09:48-0400 Body temperature 96.4 [degF] Romelia Martin PA Work Phone: 3(501)480-646681 [place] [address] 03-26-2025 09:48-0400 Body weight 74.47 kg Romelia Martin PA Work Phone: 0(335)991-886376 [place] [address] 03-26-2025 09:48-0400 Diastolic blood pressure 76 mm[Hg] Romelia Martin PA Work Phone: 7(968)821-162676 [place] [address] 03-26-2025 09:48-0400 Heart rate 63 /min Romelia Martin PA Work Phone: 9(146)625-986676 [place] [address] 03-26-2025 09:48-0400 Respiratory rate 16 /min Romelia Martin PA Work Phone: 1(430)636-673276 [place] [address] 03-26-2025 09:48-0400 SaO2% (BldA) [Mass fraction] 100 % Romelia Martin PA Work Phone: 8(803)124-530376 [place] [address] 03-26-2025 09:48-0400 Systolic blood pressure 113 mm[Hg] Romelia Martin PA Work Phone: 6(464)532-354576 [place] [address] 03-19-2025 09:45-0400 Body mass index (BMI) [Ratio] 24 kg/m2 Romelia Martin PA Work Phone: 1(371)757-796776 [place] [address] 03-19-2025 09:45-0400 Body temperature 98.1 [degF] Romelia Martin PA Work Phone: 3(899)072-806476 [place] [address] 03-19-2025 09:45-0400 Body weight 73.68 kg Romelia Martin PA Work Phone: 5(207)771-556876 [place] [address] 03-19-2025 09:45-0400 Diastolic blood pressure 76 mm[Hg] Romelia Martin PA Work Phone: 7(110)637-274776 [place] [address] 03-19-2025 09:45-0400 Heart rate 66 /min Romelia Martin PA Work Phone: 0(808)355-079176 [place] [address] 03-19-2025 09:45-0400 Respiratory rate 18 /min Romelia Martin PA Work Phone: 6(547)366-749681 [place] [address] 03-19-2025 09:45-0400 SaO2% (BldA) [Mass fraction] 100 % Romelia Martin PA Work Phone: [facility] 03-19-2025 09:45-0400 Systolic blood pressure 124 mm[Hg] Romelia Martin PA Work Phone: [facility] 03-12-2025 10:12-0400 Body height 175.26 cm Romelia Martin PA Work Phone: [facility] 03-12-2025 10:12-0400 Body mass index (BMI) [Ratio] 23.9 kg/m2 Romelia Martin PA Work Phone: 9(264)916-148481 [place] [address] 03-12-2025 10:12-0400 Body temperature 98.1 [degF] Romelia Martin PA Work Phone: 7(355)677-665281 [place] [address] 03-12-2025 10:12-0400 Body weight 73.59 kg Romelia Martin PA Work Phone: 6(189)942-499381 [place] [address] 03-12-2025 10:12-0400 Diastolic blood pressure 74 mm[Hg] Romelia Martin PA Work Phone: 0(130)297-008381 [place] [address] 03-12-2025 10:12-0400 Heart rate 63 /min Romelia Martin PA Work Phone: 7(031)556-913581 [place] [address] 03-12-2025 10:12-0400 Respiratory rate 18 /min Romelia Martin PA Work Phone: [facility] 03-12-2025 10:12-0400 SaO2% (BldA) [Mass fraction] 96 % Romelia Martin PA Work Phone: [facility] 03-12-2025 10:12-0400 Systolic blood pressure 113 mm[Hg] Romelia Martin PA Work Phone: [facility] 03-05-2025 09:46-0400 Body height 175.26 cm Romelia Martin PA Work Phone: [facility] 03-05-2025 09:46-0400 Body mass index (BMI) [Ratio] 23.6 kg/m2 Romelia Martin PA Work Phone: [facility] 03-05-2025 09:46-0400 Body temperature 98.2 [degF] Romelia Martin PA Work Phone: [facility] 03-05-2025 09:46-0400 Body weight 72.57 kg Romelia Martin PA Work Phone: 1(708)177-502681 [place] [address] 03-05-2025 09:46-0400 Diastolic blood pressure 77 mm[Hg] Romelia Martin PA Work Phone: 2(264)937-703981 [place] [address] 03-05-2025 09:46-0400 Heart rate 68 /min Romelia Martin PA Work Phone: [facility] 03-05-2025 09:46-0400 Respiratory rate 16 /min Romelia Martin PA Work Phone: 0(243)306-882481 [place] [address] 03-05-2025 09:46-0400 SaO2% (BldA) [Mass fraction] 100 % Romelia Martin PA Work Phone: 3(214)640-096681 [place] [address] 03-05-2025 09:46-0400 Systolic blood pressure 121 mm[Hg] Romelia Martin PA Work Phone: 2(447)663-999273 [address] 02-20-2025 13:52-0400 Body height 175.26 cm Romelia Martin PA Work Phone: 8(852)378-641881 [place] [address] 02-20-2025 13:50-0400 Body mass index (BMI) [Ratio] 23.6 kg/m2 Romelia Martin PA Work Phone: 0(028)234-503381 [place] [address] 02-20-2025 13:50-0400 Body temperature 97.8 [degF] Romelia Martin PA Work Phone: [facility] 02-20-2025 13:50-0400 Body weight 72.57 kg Romelia Martin PA Work Phone: [facility] 02-20-2025 13:50-0400 Diastolic blood pressure 73 mm[Hg] Romelia Martin PA Work Phone: 8(730)414-952481 [place] [address] 02-20-2025 13:50-0400 Heart rate 67 /min Romelia Martin PA Work Phone: 6(455)673-644973 [address] 02-20-2025 13:50-0400 Respiratory rate 18 /min Romelia Martin PA Work Phone: 1(731)058-390376 [place] [address] 02-20-2025 13:50-0400 SaO2% (BldA) [Mass fraction] 99 % Romelia Martin PA Work Phone: 8(887)999-271776 [place] [address] 02-20-2025 13:50-0400 Systolic blood pressure 123 mm[Hg] Romelia Martin PA Work Phone: 1(320)715-846276 [place] [address] 02-20-2025 12:44-0400 Body mass index (BMI) [Ratio] 23.6 kg/m2 Romelia Martin PA Work Phone: 3(382)570-929176 [place] [address] 02-20-2025 12:44-0400 Body temperature 97.8 [degF] Romelia Martin PA Work Phone: 0(127)958-021676 [place] [address] 02-20-2025 12:44-0400 Body weight 72.71 kg Romelia Martin PA Work Phone: 0(382)851-581976 [place] [address] 02-20-2025 12:44-0400 Diastolic blood pressure 73 mm[Hg] Romelia Martin PA Work Phone: 3(826)285-419476 [place] [address] 02-20-2025 12:44-0400 Heart rate 67 /min Romelia Martin PA Work Phone: 7(389)768-377176 [place] [address] 02-20-2025 12:44-0400 Respiratory rate 18 /min Romelia Martin PA Work Phone: 2(836)513-607376 [place] [address] 02-20-2025 12:44-0400 SaO2% (BldA) [Mass fraction] 99 % Romelia Martin PA Work Phone: 3(175)826-404376 [place] [address] 02-20-2025 12:44-0400 Systolic blood pressure 123 mm[Hg] Romelia Martin PA Work Phone: 4(108)920-226981 [place] [address] 02-17-2025 13:59-0400 Body height 175.3 cm Natacha Birmingham MD Work Phone: [facility] 02-17-2025 13:59-0400 Body mass index (BMI) [Ratio] 23.78 kg/m2 Natacha Birmingham MD Work Phone: [facility] 02-17-2025 13:59-0400 Body temperature 97.9 [degF] Natacha Birmingham MD Work Phone: [facility] 02-17-2025 13:59-0400 Body weight 73.03 kg Natacha Birmingham MD Work Phone: [facility] 02-17-2025 13:59-0400 Diastolic blood pressure 76 mm[Hg] Natacha Birmingham MD Work Phone: [facility] 02-17-2025 13:59-0400 Heart rate 68 /min Natacha Birmingham MD Work Phone: [facility] 02-17-2025 13:59-0400 SaO2% (BldA) [Mass fraction] 100 % Natacha Birmingham MD Work Phone: [facility] 02-17-2025 13:59-0400 Systolic blood pressure 122 mm[Hg] Natacha Birmingham MD Work Phone: [facility] 01-31-2025 14:08-0400 Body temperature 96.5 [degF] Romelia Martin PA Work Phone: [facility] 01-31-2025 14:08-0400 Diastolic blood pressure 52 mm[Hg] Romelia Martin PA Work Phone: [facility] 01-31-2025 14:08-0400 Heart rate 81 /min Romelia Martin PA Work Phone: [facility] 01-31-2025 14:08-0400 Respiratory rate 16 /min Romelia Martin PA Work Phone: [facility] 01-31-2025 14:08-0400 SaO2% (BldA) [Mass fraction] 100 % Romelia Martin PA Work Phone: 1(279)712-541681 [place] [address] 01-31-2025 14:08-0400 Systolic blood pressure 110 mm[Hg] Romelia Martin PA Work Phone: [facility] 01-30-2025 09:54-0400 Body height 175.26 cm Romelia Martin PA Work Phone: 6(835)021-586681 [place] [address] 01-30-2025 09:54-0400 Body mass index (BMI) [Ratio] 23.9 kg/m2 Romelia Martin PA Work Phone: 0(962)104-290973 [address] 01-30-2025 09:54-0400 Body temperature 98.2 [degF] Romelia Martin PA Work Phone: 4(388)960-913873 [address] 01-30-2025 09:54-0400 Body weight 73.53 kg Romelia Martin PA Work Phone: 7(941)662-150481 [place] [address] 01-30-2025 09:54-0400 Diastolic blood pressure 85 mm[Hg] Romelia Martin PA Work Phone: 6(207)882-385173 [address] 01-30-2025 09:54-0400 Heart rate 67 /min Romelia Martin PA Work Phone: 8(257)577-258681 [place] [address] 01-30-2025 09:54-0400 Respiratory rate 16 /min Romelia Martin PA Work Phone: 2(367)622-988681 [place] [address] 01-30-2025 09:54-0400 SaO2% (BldA) [Mass fraction] 100 % Romelia Martin PA Work Phone: [facility] 01-30-2025 09:54-0400 Systolic blood pressure 133 mm[Hg] Romelia Martin PA Work Phone: 0(077)572-431581 [place] [address] 01-17-2025 14:06-0400 Body temperature 97.3 [degF] Romelia Martin PA Work Phone: 1(682)186-068281 [place] [address] 01-17-2025 14:06-0400 Diastolic blood pressure 60 mm[Hg] Romelia Martin PA Work Phone: [facility] 01-17-2025 14:06-0400 Heart rate 76 /min Romelia Martin PA Work Phone: [facility] 01-17-2025 14:06-0400 Respiratory rate 14 /min Romelia Martin PA Work Phone: [facility] 01-17-2025 14:06-0400 SaO2% (BldA) [Mass fraction] 100 % Romelia Martin PA Work Phone: 2(214)489-692481 [place] [address] 01-17-2025 14:06-0400 Systolic blood pressure 132 mm[Hg] Romelia Martin PA Work Phone: 2(899)520-490781 [place] [address] 01-16-2025 09:25-0400 Body height 175.26 cm Romelia Martin PA Work Phone: 4(851)511-641581 [place] [address] 01-16-2025 09:25-0400 Body mass index (BMI) [Ratio] 23.6 kg/m2 Romelia Martin PA Work Phone: 7(905)342-543181 [place] [address] 01-16-2025 09:25-0400 Body temperature 97.9 [degF] Romelia Martin PA Work Phone: 1(281)664-714473 [address] 01-16-2025 09:25-0400 Body weight 72.63 kg Romelia Martin PA Work Phone: 3(540)530-612673 [address] 01-16-2025 09:25-0400 Diastolic blood pressure 81 mm[Hg] Romelia Martin PA Work Phone: 1(668)040-893281 [place] [address] 01-16-2025 09:25-0400 Heart rate 62 /min Romelia Martin PA Work Phone: 8(528)698-017481 [place] [address] 01-16-2025 09:25-0400 Respiratory rate 18 /min Romelia Martin PA Work Phone: 2(552)463-284081 [place] [address] 01-16-2025 09:25-0400 SaO2% (BldA) [Mass fraction] 98 % Romelia Martin PA Work Phone: 3(713)742-337081 [place] [address] 01-16-2025 09:25-0400 Systolic blood pressure 122 mm[Hg] Romelia Martin PA Work Phone: [facility] 01-03-2025 14:58-0400 Body temperature 96.9 [degF] Romelia Martin PA Work Phone: [facility] 01-03-2025 14:58-0400 Diastolic blood pressure 58 mm[Hg] Romelia Martin PA Work Phone: 4(418)135-696781 [place] [address] 01-03-2025 14:58-0400 Heart rate 67 /min Romelia Martin PA Work Phone: 7(868)312-870881 [place] [address] 01-03-2025 14:58-0400 Respiratory rate 16 /min Romelia Martin PA Work Phone: 7(045)416-899081 [place] [address] 01-03-2025 14:58-0400 SaO2% (BldA) [Mass fraction] 100 % Romelia Martin PA Work Phone: 6(852)875-998081 [place] [address] 01-03-2025 14:58-0400 Systolic blood pressure 126 mm[Hg] Romelia Martin PA Work Phone: 8(941)413-469281 [place] [address] 01-02-2025 09:43-0400 Body height 175.26 cm Romelia Martin PA Work Phone: 6(302)975-772981 [place] [address] 01-02-2025 09:43-0400 Body mass index (BMI) [Ratio] 23.6 kg/m2 Romelia Martin PA Work Phone: [facility] 01-02-2025 09:43-0400 Body temperature 98.2 [degF] Romelia Martin PA Work Phone: [facility] 01-02-2025 09:43-0400 Body weight 72.37 kg Romelia Martin PA Work Phone: [facility] 01-02-2025 09:43-0400 Diastolic blood pressure 75 mm[Hg] Romelia Martin PA Work Phone: [facility] 01-02-2025 09:43-0400 Heart rate 66 /min Romelia Martin PA Work Phone: 7(666)800-406381 [place] [address] 01-02-2025 09:43-0400 Respiratory rate 18 /min Romelia Martin PA Work Phone: 7(516)363-424781 [place] [address] 01-02-2025 09:43-0400 SaO2% (BldA) [Mass fraction] 100 % Romelia Martin PA Work Phone: 8(247)271-711481 [place] [address] 01-02-2025 09:43-0400 Systolic blood pressure 112 mm[Hg] Romelia Martin PA Work Phone: 8(514)698-910781 [place] [address] 12-26-2024 08:06-0400 Body height 175.26 cm Romelia Martin PA Work Phone: 5(764)185-178473 [address] 12-26-2024 08:06-0400 Body mass index (BMI) [Ratio] 23.5 kg/m2 Romelia Martin PA Work Phone: 4(767)507-673881 [place] [address] 12-26-2024 08:06-0400 Body temperature 98.3 [degF] Romelia Martin PA Work Phone: 4(907)610-409381 [place] [address] 12-26-2024 08:06-0400 Body weight 72.14 kg Romelia Martin PA Work Phone: 5(150)929-180776 [place] [address] 12-26-2024 08:06-0400 Diastolic blood pressure 71 mm[Hg] Romelia Martin PA Work Phone: 1(282)538-749373 [address] 12-26-2024 08:06-0400 Heart rate 65 /min Romelia Martin PA Work Phone: 4(639)011-207473 [address] 12-26-2024 08:06-0400 Respiratory rate 18 /min Romelia Martin PA Work Phone: 6(479)487-359781 [place] [address] 12-26-2024 08:06-0400 SaO2% (BldA) [Mass fraction] 100 % Romelia Martin PA Work Phone: 1(266)876-317381 [place] [address] 12-26-2024 08:06-0400 Systolic blood pressure 107 mm[Hg] Romelia Martin PA Work Phone: 5(398)721-877381 [place] [address] 12-19-2024 09:45-0400 Body height 175.26 cm Romelia Martin PA Work Phone: 2(352)811-631476 [place] [address] 12-19-2024 09:45-0400 Body mass index (BMI) [Ratio] 23.5 kg/m2 Romelia Martin PA Work Phone: 3(680)124-294281 [place] [address] 12-19-2024 09:45-0400 Body temperature 98.5 [degF] Romelia Martin PA Work Phone: 5(216)993-124081 [place] [address] 12-19-2024 09:45-0400 Body weight 72.2 kg Romelia Martin PA Work Phone: 5(557)836-141576 [place] [address] 12-19-2024 09:45-0400 Diastolic blood pressure 71 mm[Hg] Romelia Martin PA Work Phone: 5(779)166-096776 [place] [address] 12-19-2024 09:45-0400 Heart rate 67 /min Romelia Martin PA Work Phone: 8(140)776-824276 [place] [address] 12-19-2024 09:45-0400 Respiratory rate 16 /min Romelia Martin PA Work Phone: 0(895)426-304776 [place] [address] 12-19-2024 09:45-0400 SaO2% (BldA) [Mass fraction] 100 % Romelia Martin PA Work Phone: 1(974)166-763381 [place] [address] 12-19-2024 09:45-0400 Systolic blood pressure 124 mm[Hg] Romelia Martin PA Work Phone: 8(957)425-850381 [place] [address] 12-13-2024 14:33-0400 Body height 175.26 cm Romelia Martin PA Work Phone: 2(287)520-938006 [place] [address] 12-13-2024 14:33-0400 Body mass index (BMI) [Ratio] 23.8 kg/m2 Romelia Martin PA Work Phone: 1(152)554-592381 [place] [address] 12-13-2024 14:33-0400 Body weight 73.02 kg Romelia Martin PA Work Phone: 8(341)515-602181 [place] [address] 12-13-2024 14:33-0400 Diastolic blood pressure 76 mm[Hg] Romelia Martin PA Work Phone: [facility] 12-13-2024 14:33-0400 Systolic blood pressure 129 mm[Hg] Romelia Martin PA Work Phone: [facility] 12-05-2024 15:27-0400 Body temperature 96.6 [degF] Romelia Martin PA Work Phone: [facility] 12-05-2024 15:27-0400 Diastolic blood pressure 64 mm[Hg] Romelia Martin PA Work Phone: 8(881)112-504481 [place] [address] 12-05-2024 15:27-0400 Heart rate 77 /min Romelia Martin PA Work Phone: 6(780)656-103881 [place] [address] 12-05-2024 15:27-0400 Respiratory rate 16 /min Romelia Martin PA Work Phone: 1(587)492-593381 [place] [address] 12-05-2024 15:27-0400 SaO2% (BldA) [Mass fraction] 99 % Romelia Martin PA Work Phone: 1(191)630-988281 [place] [address] 12-05-2024 15:27-0400 Systolic blood pressure 126 mm[Hg] Romelia Martin PA Work Phone: 9(719)156-400681 [place] [address] 12-04-2024 09:22-0400 Body height 175.26 cm Romelia Martin PA Work Phone: [facility] 12-04-2024 09:22-0400 Body mass index (BMI) [Ratio] 23 kg/m2 Romelia Martin PA Work Phone: [facility] 12-04-2024 09:22-0400 Body temperature 97.8 [degF] Romelia Martin PA Work Phone: [facility] 12-04-2024 09:22-0400 Body weight 70.81 kg Romelia Martin PA Work Phone: [facility] 12-04-2024 09:22-0400 Diastolic blood pressure 69 mm[Hg] Romelia Martin PA Work Phone: [facility] 12-04-2024 09:22-0400 Heart rate 67 /min Romelia Martin PA Work Phone: [facility] 12-04-2024 09:22-0400 Respiratory rate 16 /min Romelia Martin PA Work Phone: [facility] 12-04-2024 09:22-0400 SaO2% (BldA) [Mass fraction] 95 % Romelia Martin PA Work Phone: [facility] 12-04-2024 09:22-0400 Systolic blood pressure 112 mm[Hg] Romelia Martin PA Work Phone: 4(391)352-213581 [place] [address] 11-22-2024 13:00-0400 Body temperature 96.1 [degF] Romelia Martin PA Work Phone: 6(380)025-776881 [place] [address] 11-22-2024 13:00-0400 Diastolic blood pressure 59 mm[Hg] Romelia Martin PA Work Phone: 8(048)647-266081 [place] [address] 11-22-2024 13:00-0400 Heart rate 65 /min Romelia Martin PA Work Phone: 9(448)297-895981 [place] [address] 11-22-2024 13:00-0400 Respiratory rate 16 /min Romelia Martin PA Work Phone: 8(400)933-311981 [place] [address] 11-22-2024 13:00-0400 SaO2% (BldA) [Mass fraction] 100 % Romelia Martin PA Work Phone: 2(805)573-423181 [place] [address] 11-22-2024 13:00-0400 Systolic blood pressure 105 mm[Hg] Romelia Martin PA Work Phone: 5(516)876-413881 [place] [address] 11-21-2024 09:20-0400 Body height 175.26 cm Romelia Martin PA Work Phone: [facility] 11-21-2024 09:20-0400 Body mass index (BMI) [Ratio] 23.1 kg/m2 Romelia Martin PA Work Phone: 1(989)855-073881 [place] [address] 11-21-2024 09:20-0400 Body temperature 98.2 [degF] Romelia Martin PA Work Phone: 8(032)719-106081 [place] [address] 11-21-2024 09:20-0400 Body weight 71.21 kg Romelia Martin PA Work Phone: [facility] 11-21-2024 09:20-0400 Diastolic blood pressure 74 mm[Hg] Romelia Martin PA Work Phone: 7(279)645-793481 [place] [address] 11-21-2024 09:20-0400 Heart rate 63 /min Romelia Martin PA Work Phone: 6(011)397-354681 [place] [address] 11-21-2024 09:20-0400 Respiratory rate 16 /min Romelia Martin PA Work Phone: 1(664)122-573381 [place] [address] 11-21-2024 09:20-0400 SaO2% (BldA) [Mass fraction] 100 % Romelia Martin PA Work Phone: 9(538)693-745881 [place] [address] 11-21-2024 09:20-0400 Systolic blood pressure 121 mm[Hg] Romelia Martin PA Work Phone: 6(358)788-544781 [place] [address] 11-07-2024 13:45-0400 Diastolic blood pressure 69 mm[Hg] Romelia Martin PA Work Phone: 9(096)841-462281 [place] [address] 11-07-2024 13:45-0400 Systolic blood pressure 121 mm[Hg] Romelia Martin PA Work Phone: 3(296)442-731881 [place] [address] 11-07-2024 09:38-0400 Body height 175.26 cm Romelia Martin PA Work Phone: 5(855)017-304281 [place] [address] 11-07-2024 09:38-0400 Body mass index (BMI) [Ratio] 22.7 kg/m2 Romelia Martin PA Work Phone: 6(578)948-526181 [place] [address] 11-07-2024 09:38-0400 Body temperature 97.5 [degF] Romelia Mratin PA Work Phone: 4(424)963-161081 [place] [address] 11-07-2024 09:38-0400 Body weight 69.9 kg Romelia Martin PA Work Phone: [facility] 11-07-2024 09:38-0400 Diastolic blood pressure 76 mm[Hg] Romelia Martin PA Work Phone: [facility] 11-07-2024 09:38-0400 Heart rate 71 /min Romelia Martin PA Work Phone: 1(270)047-093581 [place] [address] 11-07-2024 09:38-0400 Respiratory rate 16 /min Romelia Martin PA Work Phone: 0(640)582-654681 [place] [address] 11-07-2024 09:38-0400 SaO2% (BldA) [Mass fraction] 100 % Romelia Martin PA Work Phone: 9(582)049-861881 [place] [address] 11-07-2024 09:38-0400 Systolic blood pressure 116 mm[Hg] Romelia Martin PA Work Phone: 1(524)440-076473 [address] 10-24-2024 09:11-0400 Body mass index (BMI) [Ratio] 22.7 kg/m2 Romelia Martin PA Work Phone: 6(727)876-443981 [place] [address] 10-24-2024 09:11-0400 Body temperature 97.8 [degF] Romelia Martin PA Work Phone: 2(204)797-022573 [address] 10-24-2024 09:11-0400 Body weight 69.85 kg Romelia Martin PA Work Phone: 9(071)229-455273 [address] 10-24-2024 09:11-0400 Diastolic blood pressure 75 mm[Hg] Romelia Martin PA Work Phone: 1(787)772-140473 [address] 10-24-2024 09:11-0400 Heart rate 64 /min Romelia Martin PA Work Phone: 3(732)272-911081 [place] [address] 10-24-2024 09:11-0400 Respiratory rate 18 /min Romelia Martin PA Work Phone: 0(504)683-265273 [address] 10-24-2024 09:11-0400 SaO2% (BldA) [Mass fraction] 100 % Romelia Martin PA Work Phone: 5(094)956-088576 [place] [address] 10-24-2024 09:11-0400 Systolic blood pressure 114 mm[Hg] Romelia Martin PA Work Phone: 0(259)724-886276 [place] [address] 10-17-2024 09:23-0400 Body height 175.26 cm Romelia Martin PA Work Phone: 4(335)726-012576 [place] [address] 10-17-2024 09:23-0400 Body mass index (BMI) [Ratio] 22.4 kg/m2 Romelia Martin PA Work Phone: 2(025)203-352376 [place] [address] 10-17-2024 09:23-0400 Body temperature 98.2 [degF] Romelia Martin PA Work Phone: 5(054)372-196176 [place] [address] 10-17-2024 09:23-0400 Body weight 69.05 kg Romelia Martin PA Work Phone: 4(007)777-273076 [place] [address] 10-17-2024 09:23-0400 Diastolic blood pressure 76 mm[Hg] Romelia Martin PA Work Phone: 5(156)837-157176 [place] [address] 10-17-2024 09:23-0400 Heart rate 72 /min Romelia Martin PA Work Phone: 3(097)637-810176 [place] [address] 10-17-2024 09:23-0400 Respiratory rate 16 /min Romelia Martin PA Work Phone: 8(620)023-483976 [place] [address] 10-17-2024 09:23-0400 SaO2% (BldA) [Mass fraction] 100 % Romelia Martin PA Work Phone: 7(926)229-113976 [place] [address] 10-17-2024 09:23-0400 Systolic blood pressure 124 mm[Hg] Romelia Martin PA Work Phone: 1(538)495-188376 [place] [address] 10-11-2024 13:37-0400 Body temperature 96.8 [degF] Romelia Martin PA Work Phone: 9(038)698-481676 [place] [address] 10-11-2024 13:37-0400 Diastolic blood pressure 64 mm[Hg] Romelia Martin PA Work Phone: 8(631)036-713576 [place] [address] 10-11-2024 13:37-0400 Heart rate 79 /min Romelia Martin PA Work Phone: [facility] 10-11-2024 13:37-0400 Respiratory rate 16 /min Romelia Martin PA Work Phone: 7(891)902-904881 [place] [address] 10-11-2024 13:37-0400 SaO2% (BldA) [Mass fraction] 100 % Romelia Martin PA Work Phone: [facility] 10-11-2024 13:37-0400 Systolic blood pressure 113 mm[Hg] Romelia Martin PA Work Phone: 3(163)633-665573 [address] 10-10-2024 09:32-0400 Body height 175.26 cm Romelia Martin PA Work Phone: 4(766)792-557573 [address] 10-10-2024 09:12-0400 Body mass index (BMI) [Ratio] 22.9 kg/m2 Romelia Martin PA Work Phone: 5(518)740-581981 [place] [address] 10-10-2024 09:12-0400 Body temperature 97.3 [degF] Romelia Martin PA Work Phone: 0(259)461-976973 [address] 10-10-2024 09:12-0400 Body weight 70.47 kg Romelia Martin PA Work Phone: 0(387)600-924573 [address] 10-10-2024 09:12-0400 Diastolic blood pressure 81 mm[Hg] Romelia Martin PA Work Phone: 4(232)353-038381 [place] [address] 10-10-2024 09:12-0400 Heart rate 59 /min Romelia Martin PA Work Phone: 1(847)504-751181 [place] [address] 10-10-2024 09:12-0400 Respiratory rate 16 /min Romelia Martin PA Work Phone: 9(831)886-949981 [place] [address] 10-10-2024 09:12-0400 SaO2% (BldA) [Mass fraction] 100 % Romelia Martin PA Work Phone: [facility] 10-10-2024 09:12-0400 Systolic blood pressure 122 mm[Hg] Romelia Martin PA Work Phone: [facility] 09-26-2024 11:13-0400 Body mass index (BMI) [Ratio] 22.8 kg/m2 Romelia Martin PA Work Phone: 1(928)800-835381 [place] [address] 09-26-2024 11:13-0400 Body temperature 98.2 [degF] Romelia Martin PA Work Phone: 2(041)902-989481 [place] [address] 09-26-2024 11:13-0400 Body weight 70.3 kg Romelia Martin PA Work Phone: 8(167)509-519381 [place] [address] 09-26-2024 11:13-0400 Diastolic blood pressure 73 mm[Hg] Romelia Martin PA Work Phone: 7(024)606-092873 [address] 09-26-2024 11:13-0400 Heart rate 60 /min Romelia Martin PA Work Phone: 6(962)774-906373 [address] 09-26-2024 11:13-0400 Respiratory rate 16 /min Romelia Martin PA Work Phone: 9(397)060-278081 [place] [address] 09-26-2024 11:13-0400 SaO2% (BldA) [Mass fraction] 100 % Romelia Martin PA Work Phone: 0(430)703-713481 [place] [address] 09-26-2024 11:13-0400 Systolic blood pressure 115 mm[Hg] Romelia Martin PA Work Phone: 5(382)549-758881 [place] [address] 09-24-2024 09:35-0400 Body mass index (BMI) [Ratio] 21.9 kg/m2 Romelia Martin PA Work Phone: 8(050)909-010281 [place] [address] 09-24-2024 09:35-0400 Body weight 67.58 kg Romelia Martin PA Work Phone: 8(599)897-547481 [place] [address] 09-24-2024 09:35-0400 Respiratory rate 18 /min Romelia Martin PA Work Phone: 9(000)985-645081 [place] [address] 09-11-2024 12:59-0400 Body temperature 98.3 [degF] Romelia Martin PA Work Phone: 9(875)050-267881 [place] [address] 09-11-2024 12:59-0400 Diastolic blood pressure 66 mm[Hg] Romelia Martin PA Work Phone: [facility] 09-11-2024 12:59-0400 Heart rate 81 /min Romelia Martin PA Work Phone: [facility] 09-11-2024 12:59-0400 Respiratory rate 16 /min Romelia Martin PA Work Phone: 6(118)170-525081 [place] [address] 09-11-2024 12:59-0400 SaO2% (BldA) [Mass fraction] 100 % Romelia Martin PA Work Phone: 8(700)787-979881 [place] [address] 09-11-2024 12:59-0400 Systolic blood pressure 110 mm[Hg] Romelia Martin PA Work Phone: 7(719)797-524081 [place] [address] 09-11-2024 10:36-0400 Body height 175.26 cm Romelia Martin PA Work Phone: 9(689)149-107181 [place] [address] 09-11-2024 10:36-0400 Body mass index (BMI) [Ratio] 22.1 kg/m2 Romelia Martin PA Work Phone: 0(418)280-155981 [place] [address] 09-11-2024 10:36-0400 Body weight 68 kg Romelia Martin PA Work Phone: 3(903)909-188081 [place] [address] 08-26-2024 14:33-0400 Body mass index (BMI) [Ratio] 22.6 kg/m2 Romelia Martin PA Work Phone: [facility] 08-26-2024 14:33-0400 Body temperature 98.9 [degF] Romelia Martin PA Work Phone: [facility] 08-26-2024 14:33-0400 Body weight 69.56 kg Romelia Martin PA Work Phone: [facility] 08-26-2024 14:33-0400 Diastolic blood pressure 75 mm[Hg] Romelia Martin PA Work Phone: [facility] 08-26-2024 14:33-0400 Heart rate 77 /min Romelia Martin PA Work Phone: [facility] 08-26-2024 14:33-0400 Respiratory rate 16 /min Romelia Martin PA Work Phone: [facility] 08-26-2024 14:33-0400 SaO2% (BldA) [Mass fraction] 98 % Romelia Martin PA Work Phone: [facility] 08-26-2024 14:33-0400 Systolic blood pressure 113 mm[Hg] Romelia Martin PA Work Phone: 4(238)268-249581 [place] [address] 08-13-2024 19:05-0400 Body temperature 98.6 [degF] Romelia Martin PA Work Phone: 5(857)580-646773 [address] 08-13-2024 19:05-0400 Diastolic blood pressure 61 mm[Hg] Romelia Martin PA Work Phone: 5(004)705-819581 [place] [address] 08-13-2024 19:05-0400 Heart rate 69 /min Romelia Martin PA Work Phone: 2(647)835-512181 [place] [address] 08-13-2024 19:05-0400 Respiratory rate 16 /min Romelia Martin PA Work Phone: 0(550)210-040181 [place] [address] 08-13-2024 19:05-0400 SaO2% (BldA) [Mass fraction] 98 % Romelia Martin PA Work Phone: 1(024)563-830981 [place] [address] 08-13-2024 19:05-0400 Systolic blood pressure 107 mm[Hg] Romelia Martin PA Work Phone: 9(880)767-317481 [place] [address] 08-13-2024 09:57-0400 Body height 175.26 cm Romelia Martin PA Work Phone: 4(614)249-989381 [place] [address] 08-13-2024 09:57-0400 Body mass index (BMI) [Ratio] 22.4 kg/m2 Romelia Martin PA Work Phone: 4(684)688-767481 [place] [address] 08-13-2024 09:57-0400 Body weight 69 kg Romelia Martin PA Work Phone: 7(116)731-004881 [place] [address] 07-25-2024 08:19-0500 Body mass index (BMI) [Ratio] 22.8 kg/m2 Romelia Martin PA Work Phone: 0(382)311-691781 [place] [address] 07-25-2024 08:19-0500 Body temperature 99.6 [degF] Romelia Martin PA Work Phone: 6(199)754-642181 [place] [address] 07-25-2024 08:19-0500 Body weight 70.36 kg Romelia Martin PA Work Phone: 0(645)812-033081 [place] [address] 07-25-2024 08:19-0500 Diastolic blood pressure 67 mm[Hg] Romelia Martin PA Work Phone: 5(555)112-978676 [place] [address] 07-25-2024 08:19-0500 Heart rate 63 /min Romelia Martin PA Work Phone: 5(119)889-200381 [place] [address] 07-25-2024 08:19-0500 Respiratory rate 18 /min Romelia Martin PA Work Phone: 5(984)172-113773 [address] 07-25-2024 08:19-0500 SaO2% (BldA) [Mass fraction] 98 % Romelia Martin PA Work Phone: 5(930)380-712281 [place] [address] 07-25-2024 08:19-0500 Systolic blood pressure 107 mm[Hg] Romelia Martin PA Work Phone: 7(858)133-408081 [place] [address] 07-09-2024 14:07-0500 Body mass index (BMI) [Ratio] 22.5 kg/m2 Romelia Martin PA Work Phone: 4(517)318-516881 [place] [address] 07-09-2024 14:07-0500 Body temperature 97.9 [degF] Romelia Martin PA Work Phone: 3(626)049-559381 [place] [address] 07-09-2024 14:07-0500 Body weight 69.17 kg Romelia Martin PA Work Phone: [facility] 07-09-2024 14:07-0500 Diastolic blood pressure 74 mm[Hg] Romelia Martin PA Work Phone: 7(144)467-655581 [place] [address] 07-09-2024 14:07-0500 Heart rate 72 /min Romelia Martin PA Work Phone: [facility] 07-09-2024 14:07-0500 Respiratory rate 16 /min Romelia Martin PA Work Phone: [facility] 07-09-2024 14:07-0500 SaO2% (BldA) [Mass fraction] 100 % Romelia Martin PA Work Phone: [facility] 07-09-2024 14:07-0500 Systolic blood pressure 118 mm[Hg] Romelia Martin PA Work Phone: [facility] 07-08-2024 08:58-0500 Body mass index (BMI) [Ratio] 22.5 kg/m2 Romelia Martin PA Work Phone: [facility] 07-08-2024 08:58-0500 Body temperature 98.3 [degF] Romelia Martin PA Work Phone: [facility] 07-08-2024 08:58-0500 Body weight 69.17 kg Romelia Martin PA Work Phone: 2(100)034-068281 [place] [address] 07-08-2024 08:58-0500 Diastolic blood pressure 76 mm[Hg] Romelia Martin PA Work Phone: [facility] 07-08-2024 08:58-0500 Heart rate 87 /min Romelia Martin PA Work Phone: [facility] 07-08-2024 08:58-0500 Respiratory rate 16 /min Romelia Martin PA Work Phone: [facility] 07-08-2024 08:58-0500 SaO2% (BldA) [Mass fraction] 99 % Romelia Martin PA Work Phone: [facility] 07-08-2024 08:58-0500 Systolic blood pressure 123 mm[Hg] Romelia Martin PA Work Phone: [facility] 07-02-2024 13:35-0500 Body mass index (BMI) [Ratio] 22.5 kg/m2 Romelia Martin PA Work Phone: [facility] 07-02-2024 13:35-0500 Body temperature 97.9 [degF] Romelia Martin PA Work Phone: [facility] 07-02-2024 13:35-0500 Body weight 69.11 kg Romelia Martin PA Work Phone: [facility] 07-02-2024 13:35-0500 Diastolic blood pressure 70 mm[Hg] Romelia Martin PA Work Phone: [phone] [place] [address] 07-02-2024 13:35-0500 Heart rate 66 /min Romelia Martin PA Work Phone: [facility] 07-02-2024 13:35-0500 Respiratory rate 18 /min Romelia Martin PA Work Phone: [phone])350-984173 [address] 07-02-2024 13:35-0500 SaO2% (BldA) [Mass fraction] 97 % Romelia Martin PA Work Phone: [phone] [place] [address] 07-02-2024 13:35-0500 Systolic blood pressure 121 mm[Hg] Romelia Martin PA Work Phone: 1(004)561-973273 [address] 06-20-2024 07:58-0500 Body mass index (BMI) [Ratio] 23.6 kg/m2 Romelia Martin PA Work Phone: [facility] 06-20-2024 07:58-0500 Body temperature 97.2 [degF] Romelia Martin PA Work Phone: [facility] 06-20-2024 07:58-0500 Body weight 72.57 kg Romelia Martin PA Work Phone: [facility] 06-20-2024 07:58-0500 Diastolic blood pressure 73 mm[Hg] Romelia Martin PA Work Phone: [facility] 06-20-2024 07:58-0500 Heart rate 63 /min Romelia Martin PA Work Phone: [facility] 06-20-2024 07:58-0500 Respiratory rate 18 /min Romelia Martin PA Work Phone: [facility] 06-20-2024 07:58-0500 SaO2% (BldA) [Mass fraction] 100 % Romelia Martin PA Work Phone: [facility] 06-20-2024 07:58-0500 Systolic blood pressure 115 mm[Hg] Romelia Martin PA Work Phone: [facility] 06-17-2024 08:50-0500 Body height 177.8 cm Korin Odonnell RN [facility], [facility].; [employer] [facility], [facility]. 06-17-2024 08:50-0500 Body mass index (BMI) [Ratio] 22.81 kg/m2 Korin [facility]donnell RN [facility].; [facility]. 06-17-2024 08:50-0500 Body surface area Derived from formula 1.89 m2 Korin [facility]donnell RN [facility].; [employer] [facility], [facility]. 06-17-2024 08:50-0500 Body weight 72.12 kg Korin Odonnell RN [employer] [facility].; [employer] [facility], [facility]. 06-17-2024 08:50-0500 Diastolic blood pressure 59 mm[Hg] Korin Odonnell RN [facility] [facility].; [employer]. Comment on above: Patient Position: Sitting; Cuff Location : Left Arm; Cuff Size: Standard 06-17-2024 08:50-0500 Heart rate 61 /min Korin Odonnell RN [facility]Un[employer] [facility] Center[facility].; [employer]. Comment on above: Pattern: Regular 06-17-2024 08:50-0500 Systolic blood pressure 106 mm[Hg] Korin Odonnell RN [employer] [facility].; [employer]. Comment on above: Patient Position: Sitting; Cuff Location : Left Arm; Cuff Size: Standard 06-13-2024 14:41-0500 Body mass index (BMI) [Ratio] 23.5 kg/m2 Romelia Martin PA Work Phone: [facility] 06-13-2024 14:41-0500 Body temperature 97.3 [degF] Romelia Martin PA Work Phone: [facility] 06-13-2024 14:41-0500 Body weight 72.29 kg Romelia Martin PA Work Phone: [facility] 06-13-2024 14:41-0500 Diastolic blood pressure 78 mm[Hg] Romelia Martin PA Work Phone: [facility] 06-13-2024 14:41-0500 Heart rate 76 /min Romelia Martin PA Work Phone: [facility] 06-13-2024 14:41-0500 Respiratory rate 18 /min Romelia Martin PA Work Phone: [phone] [address] 06-13-2024 14:41-0500 SaO2% (BldA) [Mass fraction] 100 % Romelia Martin PA Work Phone: [facility] 06-13-2024 14:41-0500 Systolic blood pressure 118 mm[Hg] Romelia Martin PA Work Phone: [facility] 06-06-2024 15:06-0500 Body height 177.8 cm Shell Lloyd LPN [facility], [facility].; [facility], [facility]. 06-06-2024 15:06-0500 Body mass index (BMI) [Ratio] 22.96 kg/m2 Shell Lloyd LPN [facility], [facility].; [facility], [facility]. 06-06-2024 15:06-0500 Body surface area Derived from formula 1.9 m2 Shell Lloyd LPN [facility], [facility].; [facility], [facility]. 06-06-2024 15:06-0500 Body temperature 98.4 [degF] Shell Lloyd LPN [facility], [facility].; [facility], [facility]. Comment on above: Method: Tympanic 06-06-2024 15:06-0500 Body weight 72.58 kg Shell Lloyd [facility], [facility].; [facility], Inc[facility] 06-06-2024 15:06-0500 Diastolic blood pressure 77 mm[Hg] Shellgarcia Lloyd [facility], [facility].; [facility], Inc. Comment on above: Patient Position: Sitting; Cuff Location : Left Arm; Cuff Size: Standard 06-06-2024 15:06-0500 Heart rate 69 /min [facility], Inc.; [facility], Inc. Comment on above: Pattern: Regular 06-06-2024 15:06-0500 Systolic blood pressure 118 mm[Hg] Shell Lloyd [facility], Inc.; [employer] [facility], Inc. Comment on above: Patient Position: Sitting; Cuff Location : Left Arm; Cuff Size: Standard 07-05-2022 09:05-0500 Body height 177.8 cm Lili Holly [facility], Inc.; [facility], Inc[facility] 07-05-2022 09:05-0500 Body mass index (BMI) [Ratio] 22.38 kg/m2 Sulema Stuckey [facility], Inc.; [facility], Inc. 07-05-2022 09:05-0500 Body surface area Derived from formula 1.88 m2 [facility] Elayne [facility], [facility].; [facility], Inc. 07-05-2022 09:05-0500 Body temperature 97.6 [degF] SulemaKathryn Holly [facility], [facility].; [employer] [facility], Inc. Comment on above: Method: Tympanic 07-05-2022 09:05-0500 Body weight 70.76 kg Lili Holly [facility], Inc.; [facility], Inc[facility] 07-05-2022 09:05-0500 Diastolic blood pressure 75 mm[Hg] Lili Holly [facility], [facility].; [employer] [facility], Inc. Comment on above: Patient Position: Sitting; Cuff Location : Left Arm; Cuff Size: Large 07-05-2022 09:05-0500 Heart rate 75 /min Lili Holly [facility].; [employer] [facility] Center[facility]. Comment on above: Pattern: Regular 07-05-2022 09:05-0500 Inhaled oxygen concentration 21 % Lili Peralta [place] [facility].; [employer] [facility] Center[facility]. Comment on above: Room air 07-05-2022 09:05-0500 SaO2% (BldA) [Mass fraction] 100 % Lili Peralta [place] [facility].; [employer] [facility]. 07-05-2022 09:05-0500 Systolic blood pressure 136 mm[Hg] Lili Holly [facility].; [employer] [facility] Center[facility]. Comment on above: Patient Position: Sitting; Cuff Location : Left Arm; Cuff Size: Large 03-17-2021 11:040 Body height 177.8 cm Cathi Barton [facility].; [employer] [facility] Center[facility]. 03-17-2021 11:26040 Body mass index (BMI) [Ratio] 22.96 kg/m2 Cathi Barton [facility].; [employer] [facility], [employer]. 03-17-2021 11:040 Body surface area Derived from formula 1.9 m2 Cathi Barton [facility].; [employer] [facility], [employer]. 03-17-2021 11:040 Body temperature 98 [degF] Cathi Barton [facility].; [employer] [facility] Center[facility]. Comment on above: Method: Tympanic 03-17-2021 11:040 Body weight 72.58 kg Cathi Barton [facility].; [employer] [facility]. 03-17-2021 11:040 Diastolic blood pressure 73 mm[Hg] Cathi Barton [facility].; [employer]. Comment on above: Patient Position: Sitting; Cuff Location : Left Arm; Cuff Size: Standard 03-17-2021 11:260400 Heart rate 79 /min Cathi Barton LPN [facility].; [employer]. Comment on above: Pattern: Regular 03-17-2021 11:26-0400 Inhaled oxygen concentration 21 % Cathi Barton TRANSMISSION TESTER [facility], Inc.; [employer]. Comment on above: Room air 03-17-2021 11:26-0400 SaO2% (BldA) [Mass fraction] 99 % Cathi Barton TRANSMISSION TESTER [facility], Inc.; [employer] 03-17-2021 11:26-0400 Systolic blood pressure 114 mm[Hg] Cathi Barton [facility], [employer].; [employer]. Comment on above: Patient Position: Sitting; Cuff Location : Left Arm; Cuff Size: Standard 02-19-2021 11:32-0400 Body height 177.8 cm Gisela Montalvo TRANSMISSION TESTER Work Phone: [facility].; [employer]. 02-19-2021 11:32-0400 Body mass index (BMI) [Ratio] 23.67 kg/m2 Gisela Katia TRANSMISSION TESTER Work Phone: [employer] [facility].; [employer]. 02-19-2021 11:32-0400 Body surface area Derived from formula 1.92 m2 Gisela Katia TRANSMISSION TESTER Work Phone: [facility]ríguezUnbabel [facility] Center[facility]el[facility].; [employer], [employer]. 02-19-2021 11:32-0400 Body weight 74.84 kg Gisela Katia TRANSMISSION TESTER Work Phone: [employer] [facility].; [employer]. 02-19-2021 11:32-0400 Diastolic blood pressure 61 mm[Hg] Gisela Montalvo TRANSMISSION TESTER Work Phone: [employer].; [employer]. Comment on above: Patient Position: Sitting; Cuff Location : Left Arm; Cuff Size: Large 02-19-2021 11:32-0400 Heart rate 73 /min Gisela Montalvo TRANSMISSION TESTER Work Phone: [employer].; [employer]. Comment on above: Pattern: Regular 02-19-2021 11:32-0400 Systolic blood pressure 117 mm[Hg] Gisela Montalvo LPN Work Phone: [employer] [facility], [employer].; [employer]. Comment on above: Patient Position: Sitting; Cuff Location : Left Arm; Cuff Size: Large 01-22-2019 11:27-0400 Body height 177.8 cm Lili Holly [facility], Inc.; [employer] 01-22-2019 11:27-0400 Body mass index (BMI) [Ratio] 23.82 kg/m2 Lili Holly [facility], Inc.; [employer] 01-22-2019 11:27-0400 Body surface area Derived from formula 1.93 m2 Lili Holly [facility] [employer] [facility], Inc.; [employer], [employer]. 01-22-2019 11:27-0400 Body weight 75.3 kg Lili Holly [facility] [employer] [facility], Inc.; [employer], [employer]. 01-22-2019 11:27-0400 Diastolic blood pressure 70 mm[Hg] Lili Holly [facility] [employer] [facility], Inc.; [employer], [employer]. Comment on above: Patient Position: Sitting; Cuff Location : Left Arm; Cuff Size: Large 01-22-2019 11:27-0400 Heart rate 80 /min Lili Holly [facility], Inc.; [employer] Comment on above: Pattern: Regular 01-22-2019 11:27-0400 Systolic blood pressure 110 mm[Hg] Lili Holly [facility] [employer] [facility], Inc.; [employer]. Comment on above: Patient Position: Sitting; Cuff Location : Left Arm; Cuff Size: Large 12-17-2018 08:59-0400 Body height 177.8 cm Korin Odonnell RN [employer] [facility], [employer].; [employer] 12-17-2018 08:59-0400 Body mass index (BMI) [Ratio] 23.82 kg/m2 Korin Odonnell RN [employer] [facility], Inc.; [employer] 12-17-2018 08:59-0400 Body surface area Derived from formula 1.93 m2 Korin Odonnell RN [employer], [employer].; [employer] 12-17-2018 08:59-0400 Body weight 75.3 kg Korin Odonnell RN [employer], Inc.; [employer] 12-17-2018 08:59-0400 Diastolic blood pressure 57 mm[Hg] Korin Odonnell RN [employer], [employer].; [employer]. Comment on above: Patient Position: Sitting; Cuff Location : Left Arm; Cuff Size: Standard 12-17-2018 08:59-0400 Heart rate 75 /min Korin Odonnell RN [employer], [employer].; [employer]. Comment on above: Pattern: Regular 12-17-2018 08:59-0400 Systolic blood pressure 96 mm[Hg] Korin Odonnell RN [employer], [employer].; [employer]. Comment on above: Patient Position: Sitting; Cuff Location : Left Arm; Cuff Size: Standard 08-06-2018 13:33-0500 Body height 177.8 cm Neilee Jose Vess TRANSMISSION TESTER [employer], [employer].; [employer] 08-06-2018 13:33-0500 Body mass index (BMI) [Ratio] 23.1 kg/m2 Neilee L Vess TRANSMISSION TESTER [employer], [employer].; [employer] 08-06-2018 13:33-0500 Body surface area Derived from formula 1.9 m2 Neilee L Vess TRANSMISSION TESTER [employer], [employer].; [email or web address] 08-06-2018 13:33-0500 Body temperature 101.3 [degF] Neilee L Vess [employer]SMISSION TE[employer].; [employer]. Comment on above: Method: Tympanic 08-06-2018 13:33-0500 Body weight 73.03 kg Neilee L Vess [employer]SM[employer]ION [employer].; [email or web address] 08-06-2018 13:33-0500 Diastolic blood pressure 70 mm[Hg] Neilee L Vess TRANSMISSION TESTER [employer].; [employer]. Comment on above: Patient Position: Sitting; Cuff Location : Left Arm; Cuff Size: Standard 08-06-2018 13:33-0500 Heart rate 70 /min Neilee Jose Vess TRANSMISSION TESTER [employer].; [employer]. Comment on above: Pattern: Regular 08-06-2018 13:33-0500 Systolic blood pressure 113 mm[Hg] Neilee L Vess TRANSMISSION TESTER [email or web address].; [email or web address] Comment on above: Patient Position: Sitting; Cuff Location : Left Arm; Cuff Size: Standard 07-02-2016 08:36-0500 Body height 177.8 cm Danielito Gabriel MD Work Phone: [employer].; [employer]. 07-02-2016 08:36-0500 Body mass index (BMI) [Ratio] 22.96 kg/m2 Danielito Gabriel MD Work Phone: [employer].; [employer]. 07-02-2016 08:36-0500 Body surface area Derived from formula 1.9 m2 Danielito Gabriel MD Work Phone: [employer].; [employer]. 07-02-2016 08:36-0500 Body temperature 97.7 [degF] Danielito Gabriel MD Work Phone: [employer].; [employer]. Comment on above: Method: Tympanic 07-02-2016 08:36-0500 Body weight 72.58 kg Danielito Gabriel MD Work Phone: [employer].; [employer]. 07-02-2016 08:36-0500 Diastolic blood pressure 72 mm[Hg] Danielito Gabriel MD Work Phone: [employer].; [employer]. Comment on above: Patient Position: Sitting; Cuff Location : Right Arm; Cuff Size: Standard 07-02-2016 08:36-0500 Heart rate 87 /min Danielito Gabriel MD Work Phone: [employer].; [employer]. Comment on above: Pattern: Regular 07-02-2016 08:36-0500 Systolic blood pressure 113 mm[Hg] Danielito Gabriel MD Work Phone: [employer].; [employer]. Comment on above: Patient Position: Sitting; Cuff Location : Right Arm; Cuff Size: Standard 08-25-2014 09:11-0400 Body height 177.8 cm Brynn Aguilera RN [employer].; [employer]. 08-25-2014 09:11-0400 Body mass index (BMI) [Ratio] 23.96 kg/m2 Brynn Aguilera RN [employer].; [employer]. 08-25-2014 09:11-0400 Body surface area Derived from formula 1.93 m2 Brynn Aguilera RN [employer].; [employer]. 08-25-2014 09:11-0400 Body temperature 97.5 [degF] Brynn Aguilera RN [employer].; [employer]. Comment on above: Method: Tympanic 08-25-2014 09:110400 Body weight 75.75 kg Brynn Aguilera RN [employer].; [employer]. 08-25-2014 09:11-0400 Diastolic blood pressure 70 mm[Hg] Brynn Aguielra RN [employer].; [employer]. Comment on above: Patient Position: Sitting; Cuff Location : Left Arm; Cuff Size: Standard 08-25-2014 09:110400 Heart rate 62 /min Brynn Aguilera RN [employer].; [employer]. Comment on above: Pattern: Regular 08-25-2014 09:11-0400 Systolic blood pressure 113 mm[Hg] Brynn Aguilera RN [employer].; [employer]. Comment on above: Patient Position: Sitting; Cuff Location : Left Arm; Cuff Size: Standard 10-07-2013 13:33-0400 Body height 177.8 cm Brynn Aguilera RN [employer].; [employer]. 10-07-2013 13:33-0400 Body mass index (BMI) [Ratio] 23.55 kg/m2 rBynn Aguilera RN [employer] [facility].; [employer]. 10-07-2013 13:33-0400 Body surface area Derived from formula 1.92 m2 Brynn Aguilera RN [employer] [facility].; [employer]. 10-07-2013 13:33-0400 Body temperature 98.2 [degF] Brynn Aguilera RN [employer] [facility].; [employer]. Comment on above: Method: Tympanic 10-07-2013 13:33-0400 Body weight 74.44 kg Brynn Aguilera RN [employer]. 10-07-2013 13:33-0400 Diastolic blood pressure 71 mm[Hg] Brynn Aguilera RN [employer] [facility] Center[facility].; [employer]. Comment on above: Patient Position: Sitting; Cuff Location : Left Arm; Cuff Size: Standard 10-07-2013 13:33-0400 Heart rate 78 /min Brynn Aguilera RN [employer] [facility].; [employer]. Comment on above: Pattern: Regular 10-07-2013 13:33-0400 Systolic blood pressure 137 mm[Hg] Brynn Aguilera RN [employer]. Comment on above: Patient Position: Sitting; Cuff Location : Left Arm; Cuff Size: Standard 02-14-2013 16:06-0400 Body height 177.8 cm Debra Paiz LPN [employer] [facility], [employer].; [employer]. 02-14-2013 16:06-0400 Body mass index (BMI) [Ratio] 23.73 kg/m2 Debra Paiz LPN [employer].; [employer]. 02-14-2013 16:06-0400 Body surface area Derived from formula 1.93 m2 Debra Paiz LPN [employer].; [employer]. 02-14-2013 16:06-0400 Body weight 75.01 kg Debra Paiz LPN [employer].; [employer]. 02-14-2013 16:06-0400 Diastolic blood pressure 68 mm[Hg] Debra Paiz LAURA [facility], Inc.; [employer], [employer]. Comment on above: Patient Position: Sitting; Cuff Location : Left Arm; Cuff Size: Standard 02-14-2013 16:06-0400 Heart rate 76 /min Debra Paiz LAURA [facility], Inc.; [employer], [employer] Comment on above: Pattern: Regular 02-14-2013 16:06-0400 Systolic blood pressure 119 mm[Hg] Debra Paiz TRANSMISSION TESTER [facility], Inc.; [employer], [employer]. Comment on above: Patient Position: Sitting; Cuff Location : Left Arm; Cuff Size: Standard 01-15-2013 11:260400 Body height 177.8 cm Debra Paiz [facility], Inc.; [employer] 01-15-2013 11:26-0400 Body mass index (BMI) [Ratio] 22.98 kg/m2 Debra Pizanoilene [facility], Inc.; [employer] 01-15-2013 11:26-0400 Body surface area Derived from formula 1.9 m2 Debra Buschmary ellen [facility], Inc.; [employer] 01-15-2013 11:26-0400 Body weight 72.63 kg Debra Paiz LAURA [facility], Inc.; [employer], [employer] 01-15-2013 11:26-0400 Diastolic blood pressure 71 mm[Hg] Debra Paiz TRANSMISSION TESTER [facility], Inc.; [employer], [employer]. Comment on above: Patient Position: Sitting; Cuff Location : Left Arm; Cuff Size: Standard 01-15-2013 11:26-0400 Heart rate 74 /min Debra Paiz TRANSMISSION TESTER [facility], Inc.; [employer]. Comment on above: Pattern: Regular 01-15-2013 11:26-0400 Inhaled oxygen concentration 21 % Debra Pizanoilnee [facility], Inc.; [employer]. Comment on above: Room air 01-15-2013 11:26-0400 SaO2% (BldA) [Mass fraction] 99 % Debra Paiz LPN [employer] [facility].; [employer]. 01-15-2013 11:26-0400 Systolic blood pressure 114 mm[Hg] Debra Chencho SANCHEZ [facility].; [employer]. Comment on above: Patient Position: Sitting; Cuff Location : Left Arm; Cuff Size: Standard 04-25-2012 10:20-0500 Body height 177.8 cm Brynn Aguilera RN [employer]. 04-25-2012 10:20-0500 Body mass index (BMI) [Ratio] 23.42 kg/m2 Brynn Aguilera RN [employer] [facility].; [employer]. 04-25-2012 10:20-0500 Body surface area Derived from formula 1.91 m2 Brynn Aguilera RN [employer].; [employer]. 04-25-2012 10:20-0500 Body temperature 97.6 [degF] Brynn Aguilera RN [employer].; [employer]. Comment on above: Method: Tympanic 04-25-2012 10:20-0500 Body weight 74.03 kg Brynn Aguilera RN [employer]. 04-25-2012 10:20-0500 Diastolic blood pressure 69 mm[Hg] Brynn Aguilera RN [employer]. Comment on above: Patient Position: Sitting; Cuff Location : Left Arm; Cuff Size: Standard 04-25-2012 10:20-0500 Heart rate 81 /min Brynn Aguilera RN [employer].; [employer]. Comment on above: Pattern: Regular 04-25-2012 10:20-0500 Systolic blood pressure 103 mm[Hg] Brynn Aguilera RN [employer].; [employer]. Comment on above: Patient Position: Sitting; Cuff Location : Left Arm; Cuff Size: Standard 02-20-2012 14:43-0400 Body height 177.8 cm Brynn Aguilera RN [facility] Inc.; [employer]. 02-20-2012 14:43-0400 Body mass index (BMI) [Ratio] 23.36 kg/m2 Brynn Aguilera RN [employer] [facility].; [employer]. 02-20-2012 14:43-0400 Body surface area Derived from formula 1.91 m2 Brynn Aguilera RN [employer] [facility].; [employer]. 02-20-2012 14:43-0400 Body temperature 99 [degF] Brynn Aguilera RN [employer] [facility].; [employer]. Comment on above: Method: Tympanic 02-20-2012 14:43-0400 Body weight 73.85 kg Brynn Aguilera RN [employer] [facility].; [employer]. 02-20-2012 14:43-0400 Diastolic blood pressure 73 mm[Hg] Brynn Aguilera RN [employer].; [employer]. Comment on above: Patient Position: Sitting; Cuff Location : Left Arm; Cuff Size: Standard 02-20-2012 14:43-0400 Heart rate 81 /min Brynn Aguilera RN [employer].; [employer]. Comment on above: Pattern: Regular 02-20-2012 14:43-0400 Systolic blood pressure 123 mm[Hg] Brynn Aguilera RN [employer].; [employer]. Comment on above: Patient Position: Sitting; Cuff Location : Left Arm; Cuff Size: Standard 05-18-2011 13:28-0500 Body height 177.8 cm Brynn Aguilera RN [employer] [facility].; [employer]. 05-18-2011 13:28-0500 Body mass index (BMI) [Ratio] 22.56 kg/m2 Brynn Aguilera RN [employer] & Lily.; [facility]ríguezLignol. 05-18-2011 13:28-0500 Body surface area Derived from formula 1.88 m2 Brynn Aguilera RN [facility] [employer] [facility].; [employer]. 05-18-2011 13:28-0500 Body temperature 97.8 [degF] Brynn Aguilera RN [employer] [employer] Lily.; [employer]. Comment on above: Method: Tympanic 05-18-2011 13:28-0500 Body weight 71.31 kg Brynn Aguilera RN [employer] [employer] Lily.; [employer]. 05-18-2011 13:28-0500 Diastolic blood pressure 61 mm[Hg] Brynn Aguilera RN [facility] Lily.; [employer]. Comment on above: Patient Position: Sitting; Cuff Location : Left Arm; Cuff Size: Standard 05-18-2011 13:28-0500 Heart rate 97 /min Brynn Aguilera RN [facility] Lily.; [employer]. Comment on above: Pattern: Regular 05-18-2011 13:28-0500 Systolic blood pressure 124 mm[Hg] Brynn Aguilera RN [employer] [employer] Lily.; [employer]. Comment on above: Patient Position: Sitting; Cuff Location : Left Arm; Cuff Size: Standard 04-19-2011 09:04-0500 Body temperature 97.9 [degF] Neilee L Vess [employer]guezLignol.; [employer]. 04-19-2011 09:04-0500 Body weight 70.31 kg Neilee L Vess [employer]SM[employer]ríguezLignol.; [employer]. 04-19-2011 09:04-0500 Diastolic blood pressure 73 mm[Hg] Neilee L Vess [employer]SM[employer]Lignol.; [employer]. Comment on above: Patient Position: Sitting; Cuff Location : Left Arm; Cuff Size: Standard 04-19-2011 09:04-0500 Heart rate 91 /min Neilee L Vess TRANSM[employer] TE[employer] RodríguezLignol.; [employer]. Comment on above: Pattern: Regular 04-19-2011 09:04-0500 Systolic blood pressure 106 mm[Hg] Neilee L Vess [employer]SM[employer] TE[employer]Lignol.; [employer]. Comment on above: Patient Position: Sitting; Cuff Location : Left Arm; Cuff Size: Standard 04-12-2010 16:07-0500 Body temperature 97.1 [degF] Brynn Aguilera RN [facility]uezLignol.; [facility] Comment on above: Method: Tympanic 04-12-2010 16:07-0500 Body weight 70.76 kg Brynn [facility]ilera RN [facility]. 04-12-2010 16:07-0500 Diastolic blood pressure 65 mm[Hg] Brynn Aguilera RN [facility].; [facility]. Comment on above: Patient Position: Sitting; Cuff Location : Left Arm; Cuff Size: Standard 04-12-2010 16:07-0500 Heart rate 73 /min Brynn Aguilera RN [facility].; [facility] [employer] [facility]. Comment on above: Pattern: Regular 04-12-2010 16:07-0500 Systolic blood pressure 102 mm[Hg] Brynn Aguilera RN [facility].; [facility] [employer] [facility]. Comment on above: Patient Position: Sitting; Cuff Location : Left Arm; Cuff Size: Standard Encounters Encounter Date Encounter Type Care Provider Facility Start: 04-14-2025 End: 04-14-2025 ambulatory Romelia Martin [facility] Start: 04-11-2025 ambulatory Rom[facility] Start: 04-09-2025 End: 04-09-2025 ambulatory Romelia Martin [facility] Start: 04-07-2025 ambulatory Romelia Martin [facility] Start: 04-02-2025 End: 04-02-2025 ambulatory Romelia Martin [facility] Start: 03-26-2025 End: 03-26-[address] [facility] Work Phone: Start: 03-26-2025 End: 03-26-2025 ambulatory Wellington Moctezuma [facility] Start: 03-19-2025 End: 03-19-[address] [facility] Work Phone: Start: 03-19-2025 End: 03-19-2025 ambulatory Romelia Veronica PA Work Phone: -[facility] Start: 03-18-2025 End: 03-18-[address] Bandar Stubbs MD -[facility] Work Phone: Start: 03-18-[address] Bandar pineda MD -[facility] Start: 03-18-2025 End: 03-18-2025 ambulatory Romelia Martin Facility:[facility] Start: 03-12-[address] Bandar pineda MD -Radiation Oncology Start: 03-12-2025 End: 03-12-[address] Wellington Moctezuma DO [facility] Work Phone: Start: 03-12-2025 End: 03-12-2025 ambulatory Romelia Martin PA Work Phone: [facility] Start: 03-05-2025 End: 03-05-2025 ambulatory Romelia Martin PA Work Phone: [facility] Start: 03-05-2025 End: 03-05-[address] Wellington Moctezuma DO [facility] Work Phone: Start: 03-05-[address] Bandar pineda MD -Radiation Oncology Start: 03-03-2025 ambulatory [facility] Start: 03-03-2025 Non-patient / Non-visit Dr. Wellington Moctezuma DO [facility] Start: 02-28-2025 ambulatory [facility] Start: 02-28-2025 Non-patient / Non-visit Dr. Wellington Moctezuma [facility] Start: 02-27-2025 ambulatory [facility] Start: 02-27-2025 Non-patient / Non-visit Dr. Wellington Moctezuma [facility] Start: 02-25-2025 ambulatory [facility] Start: 02-25-2025 Non-patient / Non-visit Dr. Wellington Moctezuma [facility] Start: 02-20-[address] Bandar pineda MD -[facility] Start: 02-20-2025 End: 02-20-[address] Bandar Stubbs MD -[facility] Work Phone: Start: 02-20-2025 End: 02-20-2025 ambulatory Romelia Martin PA Work Phone: [facility] Start: 02-20-2025 Non-patient / Non-visit Dr. Wellington Moctezuma DO [facility] Start: 02-20-2025 End: 02-20-[address] Wellington Moctezuma DO [facility] Work Phone: Start: 02-20-2025 End: 02-20-2025 ambulatory Romelia Martin PA Work Phone: [facility] Start: 02-17-2025 End: 04-14-2025 ambulatory Alyssa Gillespie DIRECTOR PHARMACEUTICAL Facility:[facility] Start: 02-17-2025 End: 02-17-2025 Manual pelvic examination Natacha Birmingham MD Work Phone: [facility] Gynecology Oncology Comment on above: Pelvic mass (Primary Dx); Malignant neoplasm of left female breast, unspecified estrogen receptor status, unspecified site of breast (HCC) Start: 02-17-2025 End: 02-17-2025 Patient encounter procedure Natacha Birmingham MD Work Phone: [facility] Gynecology Oncology Start: 02-17-2025 End: 02-17-2025 ambulatory NATACHA BIRMINGHAM Facility:[facility] Start: 02-04-2025 ambulatory Jennifer Stark lity:[facility] Start: 01-31-2025 ambulatory Romelia Martin P A Work Phone: [facility] Start: 01-31-[address] Bandar pineda MD -[facility] Start: 01-30-[address] Bandar pineda MD -[facility] Start: 01-30-2025 End: 01-30-2025 Patient encounter procedure Alyssa Gillespie NP -[facility] Work Phone: Start: 01-30-2025 End: 01-30-2025 ambulatory Romelia Martin PA Work Phone: -[facility] Start: 01-28-2025 End: 01-28-2025 Telephone encounter Natacha Birmingham MD Work Phone: [facility] Gynecology Oncology Comment on above: Appointment Start: 01-16-[address] Bandar pineda MD -[facility] Start: 01-16-2025 End: 01-16-[address] Bandar Stubbs MD -[facility] Work Phone: Start: 01-16-2025 End: 01-16-2025 ambulatory Romelia Martin PA Work Phone: -[facility] Start: 01-13-2025 End: 01-13-2025 Telephone encounter Rj Ta MD Work Phone: [facility] Gynecologic Oncology [facility] Start: 01-02-[address] Bandar pineda MD -[facility] Start: 01-02-2025 End: 01-02-[address] Leighton Mercado MD -[facility] Work Phone: Start: 01-02-2025 End: 01-02-2025 ambulatory Romelia Martin PA Work Phone: -[facility] Start: 12-26-2024 End: 12-26-2024 Patient encounter procedure Alyssa Gillespie NP-C -[facility] Work Phone: Start: 12-26-2024 End: 12-26-2024 ambulatory Romelia Martin PA Work Phone: -[facility] Start: 12-26-[address] Bandar pineda MD -[facility] Start: 12-23-2024 End: 12-23-2024 ambulatory Romelia Martin PA Work Phone: [facility] Start: 12-23-2024 End: 12-23-[address] Jennifer Duenas MD -[facility] Work Phone: Start: 12-23-2024 End: 12-23-2024 ambulatory Jennifer Duenas Facility:[facility] Start: 12-20-2024 End: 12-20-2024 ambulatory Romelia Martin PA Work Phone: -Ultrasound [facility] Start: 12-20-2024 End: 12-20-2024 Patient encounter procedure Alyssa Verna DIRECTOR PHARMACEUTICAL-C -Ultrasound [facility] Work Phone: Start: 12-19-[address] Bandar pineda MD -[facility] Start: 12-19-2024 End: 12-19-2024 Patient encounter procedure Alyssa Verna DIRECTOR PHARMACEUTICAL-C -[facility] Work Phone: Start: 12-19-2024 End: 12-20-2024 ambulatory Romelia Martin PA Work Phone: -[facility] Start: 12-13-2024 End: 12-13-[address] Jennifer Duenas MD -[facility] Work Phone: Start: 12-13-2024 End: 12-13-2024 ambulatory Romelia Martin PA Work Phone: -[facility] Start: 12-05-[address] Bandar pineda MD -[facility] Start: 12-04-2024 End: 12-04-[address] Bandar Stubbs MD -[facility] Work Phone: Start: 12-04-2024 End: 12-04-2024 ambulatory Bandar Stubbs [facility] Start: 12-04-[address] Bandar pineda MD -[facility] Start: 11-21-[address] Bandar pineda MD -[facility] Start: 11-21-2024 End: 11-21-2024 Patient encounter procedure Alyssa Verna DIRECTOR PHARMACEUTICAL-C -[facility] Work Phone: Start: 11-21-2024 End: 11-21-2024 ambulatory Romelia Martin PA Work Phone: [facility] Work Phone: Start: 11-07-2024 End: 11-07-2024 Patient encounter procedure Alyssa Verna DIRECTOR PHARMACEUTICAL-C -[facility] Work Phone: Start: 11-07-2024 End: 11-07-2024 ambulatory Romelia Martin PA Work Phone: [facility] Work Phone: Start: 11-07-[address] Bandar pineda MD -[facility] Start: 10-24-2024 End: 10-24-2024 Patient encounter procedure Alyssa Verna DIRECTOR PHARMACEUTICAL-C -[facility] Work Phone: Start: 10-24-2024 End: 10-24-2024 ambulatory Romelia Martin [facility] Start: 10-17-2024 End: 10-17-2024 Patient encounter procedure Alyssa Verna DIRECTOR PHARMACEUTICAL-C -[facility] Work Phone: Start: 10-17-2024 End: 10-17-2024 ambulatory Romelia Martin PA Work Phone: [facility] Work Phone: Start: 10-17-[address] Bandar pineda MD -[facility] Start: 10-11-[address] Bandar pineda MD -[facility] Start: 10-10-2024 End: 10-10-2024 Patient encounter procedure Alyssa Verna DIRECTOR PHARMACEUTICAL-C -[facility] Work Phone: Start: 10-10-2024 End: 10-10-2024 ambulatory Romelia Martin [facility] Start: 10-09-2024 End: 10-09-2024 ambulatory Romelia Martin PA Work Phone: [facility] Work Phone: Start: 10-09-2024 End: 10-09-[address] Bandar Stubbs MD -[facility] Work Phone: Start: 10-09-2024 End: 10-09-2024 ambulatory [facility] Facility:[facility] Start: 10-03-2024 Patient encounter procedure Romelia Martin PA Work Phone: [facility] Start: 09-27-2024 Encounter for other preprocedural examination Gareth Mcdaniel [facility] Start: 09-26-2024 End: 09-26-2024 ambulatory Romelia Martin [facility] Start: 09-26-2024 Non-patient / Non-visit Dr. Jose Zavala MD -[facility] Start: 09-26-2024 End: 09-26-2024 Patient encounter procedure Alyssa Gillespie NP-Paolo -[facility] Work Phone: Start: 09-26-2024 End: 09-26-2024 ambulatory [facility] Facility:[facility] Start: 09-24-2024 End: 09-24-[address] Gareth Mcdaniel MD -[facility] Work Phone: Start: 09-24-2024 End: 09-24-2024 ambulatory Romelia Martin [facility] Start: 09-11-2024 Non-patient / Non-visit Dr. Gareth Mcdaniel MD -[facility] Start: 09-11-2024 ambulatory Gareth Mcdaniel Facility [facility] Start: 09-11-2024 End: 09-11-2024 Admission to same day surgery center Dr. Gareth Mcdaniel MD -[facility] Start: 09-11-2024 End: 09-11-2024 ambulatory Romelia Martin PA Work Phone: [facility] Work Phone: Start: 08-26-2024 End: 08-26-[address] Bandar Stubbs MD -[facility] Work Phone: Start: 08-26-2024 End: 08-26-2024 ambulatory Romelia Martin [facility] Start: 08-20-2024 End: 08-20-[address] Gareth Mcdaniel MD -[facility] Work Phone: Start: 08-20-2024 End: 08-20-2024 ambulatory Gareth Mcdaniel [facility] Start: 08-13-2024 ambulatory Gareth Mcdaniel Facility [facility] Start: 08-13-2024 Non-patient / Non-visit Dr. Angle Bernardo MD -[facility] Start: 08-13-2024 End: 08-13-2024 Admission to same day surgery center Dr. Gareth Mcdaniel MD -[facility] Start: 08-13-2024 End: 08-13-2024 ambulatory Romelia Martin PA Work Phone: [facility] Work Phone: Start: 07-25-2024 End: 07-25-[address] Angel Bernardo MD -[facility] Work Phone: Start: 07-25-2024 End: 07-25-2024 ambulatory Romelia Martin [facility] Start: 07-18-2024 End: 07-18-[address] Gareth Mcdaniel MD -[facility] Work Phone: Start: 07-18-2024 End: 07-18-2024 ambulatory Gareth Mcdaniel [facility] Start: 07-16-2024 End: 07-16-[address] Wellington Moctezuma DO -[facility] Work Phone: Start: 07-16-2024 End: 07-16-2024 ambulatory Wellington Moctezuma Facility:[facility] Start: 07-09-2024 End: 07-09-[address] Wellington Moctezuma DO [facility] Work Phone: Start: 07-09-2024 End: 07-09-2024 ambulatory Wellington Moctezuma [facility] Start: 07-08-[address] Bandar pineda MD -Radiation Oncology Start: 07-08-2024 End: 07-08-[address] Bandar Stubbs MD -[facility] Work Phone: Start: 07-08-2024 End: 07-08-2024 ambulatory Gareth Mcdaniel [facility] Start: 07-02-2024 End: 07-02-[address] Florina Hall MD -[facility] Work Phone: Start: 07-02-2024 End: 07-02-2024 ambulatory Romelia Martin [facility] Start: 06-26-2024 ambulatory [facility] Start: 06-24-2024 End: 06-24-[address] Gareth Mcdaniel MD -[facility] Work Phone: Start: 06-24-2024 End: 06-24-2024 ambulatory Gareth Mcdaniel Facility:[facility] Start: 06-20-2024 End: 06-20-2024 Historical Summary Danielito Gabriel MD Work Phone: [employer] Start: 06-20-2024 End: 06-20-[address] Gareth Mcdaniel MD -[facility] Work Phone: Start: 06-20-2024 End: 06-20-2024 ambulatory Gareth Mcdaniel [facility] Start: 06-17-2024 End: 06-17-2024 Orders Danielito Gabriel MD Work Phone: [employer]. Start: 06-17-2024 End: 06-17-2024 Patient encounter status aDnielito Gabriel MD Work Phone: [employer] [facility] Start: 06-17-2024 ambulatory Romelia Martin [facility] Start: 06-17-2024 End: 06-17-2024 Periodic preventive med est patient 40-64yrs Danielito Gabriel MD Work Phone: [employer]. Start: 06-17-2024 End: 06-17-2024 Patient encounter status Korin Odonnell RN [employer] [facility] Start: 06-17-2024 Review Danielito Gabriel MD Work Phone: [employer] Start: 06-13-2024 End: 06-13-[address] Gareth Mcdaniel MD -[facility] Work Phone: Start: 06-13-2024 End: 06-13-2024 ambulatory Gareth Mcdaniel [facility] Start: 06-13-2024 End: 06-13-2024 ambulatory Gareth Mcdaniel Facility:[facility] Start: 06-12-2024 Review Danielito Gabriel MD Work Phone: [employer] Start: 06-12-2024 End: 06-12-2024 Patient encounter procedure Danielito Gabriel MD Work Phone: [employer] Start: 06-10-2024 End: 06-10-2024 Orders Danielito Gabriel MD Work Phone: [employer] Start: 06-10-2024 End: 06-10-2024 ambulatory [facility] Start: 06-10-2024 End: 06-10-2024 Orders Danielito Gabriel MD Work Phone: [employer] Start: 06-06-2024 End: 06-06-2024 Office outpatient visit 15 minutes Danielito Gabriel MD Work Phone: [employer] Start: 07-05-2022 End: 07-05-2022 Office outpatient visit 15 minutes Danielito Gabriel MD Work Phone: [employer] Start: 03-17-2021 End: 03-17-2021 Office outpatient visit 15 minutes Danielito Gabriel MD Work Phone: [employer] Start: 02-19-2021 End: 02-19-2021 Patient encounter procedure Danielito Gabriel MD Work Phone: [employer] Start: 04-29-2019 End: 04-29-2019 Orders Danielito Gabriel MD Work Phone: [employer] Start: 03-26-2019 End: 03-26-2019 Orders Danielito Gabriel MD Work Phone: [employer]. Start: 01-22-2019 End: 01-21-2019 Historical Summary Danielito Gabriel MD Work Phone: [employer]. Start: 01-22-2019 End: 01-22-2019 Orders Danielito Gabriel MD Work Phone: [employer]. Start: 01-22-2019 End: 01-22-2019 Patient encounter status Danielito Gabriel MD Work Phone: [employer] Start: 01-22-2019 End: 01-22-2019 Periodic preventive med est patient 40-64yrs Danielito Gabriel MD Work Phone: [employer]. Start: 01-11-2019 End: 01-11-2019 Orders Danielito Gabriel MD Work Phone: [employer]. Start: 12-18-2018 End: 12-18-2018 Telephone follow-up Danielito Gabriel MD Work Phone: [employer] Start: 12-17-2018 End: 12-17-2018 Office outpatient visit 15 minutes Danieltio Gabriel MD Work Phone: [employer] Start: 08-06-2018 End: 08-07-2018 Medication Danielito Gabriel MD Work Phone: [employer]. Start: 08-06-2018 End: 08-06-2018 Office outpatient visit 15 minutes Danielito Gabriel MD Work Phone: [employer]. Start: 07-02-2016 End: 07-02-2016 Office outpatient visit 15 minutes Danielito Gabreil MD Work Phone: [employer]. Start: 09-04-2014 End: 09-04-2014 Medication Danielito Gabriel MD Work Phone: [employer]. Start: 08-25-2014 End: 08-25-2014 Patient encounter procedure Danielito Gabriel MD Work Phone: [employer]. Start: 10-21-2013 End: 10-21-2013 Medication Danielito Gabriel MD Work Phone: [employer] Start: 10-07-2013 End: 10-07-2013 Patient encounter procedure Danielito Gabriel MD Work Phone: [employer] Start: 02-14-2013 End: 02-14-2013 Patient encounter procedure Danielito Gabriel MD Work Phone: [facility] Start: 02-13-2013 End: 02-13-2013 Nursing evaluation of patient and report Danielito Gabriel MD Work Phone: [employer] Start: 01-15-2013 End: 01-15-2013 Patient encounter procedure Danielito Gabriel MD Work Phone: [facility] Start: 04-25-2012 End: 04-25-2012 Patient encounter procedure Danielito Gabriel MD Work Phone: [employer] Start: 02-20-2012 End: 02-20-2012 Patient encounter procedure Danielito Gabriel MD Work Phone: [facility] Start: 05-18-2011 End: 05-18-2011 Patient encounter procedure Danielito Gabriel MD Work Phone: [employer] Start: 04-19-2011 End: 04-19-2011 Patient encounter procedure Danielito Gabriel MD Work Phone: [facility] Start: 05-17-2010 End: 05-17-2010 Medication Danielito Gabriel MD Work Phone: [employer] Start: 04-12-2010 End: 04-12-2010 Patient encounter procedure Danielito Gabriel MD Work Phone: [facility] Follow-up encounter Romelia buckley PA-C Work Phone: [employer] Procedures Date Procedure Procedure Detail Performing Clinician Start: 03-18-2025 Dual energy X-ray absorptiometry Romelia YBARRA Work Phone: Start: 01-30-2025 Estimated creatinine clearance Romelia YBARRA Work Phone: Start: 01-30-2025 Reactive lymphocyte count Romelia Martin PA Work Phone: Start: 01-30-2025 Serum inorganic phos phate measurement Romelia Martin PA Work Phone: Start: 01-16-2025 Estimated creatinine clearance Romelia Martin PA Work Phone: Start: 01-02-2025 Estimated creatinine clearance Romelia Martin PA Work Phone: Start: 12-26-2024 Estimated creatinine clearance Romelia Martin PA Work Phone: Start: 12-23-2024 Pelvic echography Rebec ca Martin PA Work Phone: Start: 12-20-2024 Ultrasonography of abdomen Romelia Martin PA Work Phone: Start: 12-19-2024 Estimated creatinine clearance Romelia Martin PA Work Phone: Start: 12-19-2024 Lab findings surveillance Romelia Martin PA Work Phone: Start: 12-04-2024 Estimated creatinine clearance Romelia Martin PA Work Phone: Start: 12-04-2024 Flow cytometry cell surf marker techl only 1st Romelia Martin PA Work Phone: Start: 12-04-2024 Total iron binding c apacity measurement Romelia Martin PA Work Phone: Start: 11-21-2024 Estimated creatinine clearance Romelia Martin PA Work Phone: Start: 11-21-2024 Flow cytometry cell surf marker techl only 1st Romelia Martin PA Work Phone: Start: 11-07-2024 Estimated creatinine clearance Romelia Martin PA Work Phone: Start: 11-07-2024 Flow cytometry cell surf marker techl only 1st Romelia Martin PA Work Phone: Start: 10-17-2024 Estimated creatinine clearance Romelia Martin PA Work Phone: Start: 10-17-2024 Reactive lymphocyte count Romelia Martin PA Work Phone: Start: 10-10-2024 Estimated creatinine clearance Romelia Martin PA Work Phone: Start: 10-09-2024 Pelvic echography Rebec ca Martin PA Work Phone: Start: 10-01-2024 Positron emission to mography with computed tomography Romelia Martin PA Work Phone: Start: 09-11-2024 Excisional biopsy of breast with preoperative localization Romelia Martin PA Work Phone: Start: 08-13-2024 Plain chest X-ray Rebec ca Martin PA Work Phone: Start: 08-13-2024 Implantation to cardiovascular system Romelia Martin PA Work Phone: Start: 08-13-2024 Lumpectomy of breast Re tu Martin PA Work Phone: Start: 08-13-2024 Specimen mammography Re tu Martin PA Work Phone: Start: 08-13-2024 Fluoroscopic guidance R ebecca Martin PA Work Phone: Start: 08-13-2024 Breast procedure Rebecc a Martin PA Work Phone: Start: 08-13-2024 Radionuclide sentine l lymph node study Romelia Martin PA Work Phone: Start: 07-16-2024 CT of thorax with contrast Romelia Martin PA Work Phone: Start: 07-08-2024 Measurement of renal function Romelia Martin PA Work Phone: Comment on above: GFR Calc Start: 07-08-2024 Procedure Romelia Be an PA Work Phone: Start: 07-08-2024 Total iron binding c apacity measurement Romelia Martin PA Work Phone: Start: 06-24-2024 MRI of bilateral erickson asts with contrast Romelia Martin PA Work Phone: Start: 06-17-2024 End: 06-17-2024 Depression screening Danielito Gabriel MD Work Phone: Start: 06-17-2024 End: 06-17-2024 Pos clin depres scrn f/u doc Danielito hansen MD Work Phone: Start: 06-17-2024 End: 06-17-2024 Scr dep neg, no plan reqd Danielito Gabriel MD Work Phone: Start: 06-13-2024 End: 06-13-2024 Biopsy of breast Korin Odonnell RN Start: 06-10-2024 End: 06-10-2024 Lab findings surveillance Korin neff RN Comment on above: 92 in CMP Start: 06-10-2024 End: 06-10-2024 Lipid panel Korin Odonnell RN Start: 06-06-2024 End: 06-10-2024 Us breast uni real time with image limited Romelia Martin PA-C Work Phone: Start: 06-06-2024 End: 06-11-2024 Diagnostic mammography computer-aided detcj bi Romelia Martin PA-C Work Phone: Start: 01-22-2019 End: 01-22-2019 Depression screening Danielito Gabriel MD Work Phone: Start: 01-22-2019 End: 01-22-2019 Scr dep neg, no plan reqd Danielito Gabriel MD Work Phone: Start: 01-11-2019 End: 01-11-2019 Lab findings surveillance Lili Dealpatrick jacobs LPN Comment on above: 91 Start: 01-11-2019 End: 01-11-2019 Lipid panel Lili Holly LP N Start: 10-07-2013 End: 10-10-2013 Ct head/brain w/o contrast material Korin Guerrero PA-C Work Phone: section Sulema Vignesh salas [employer]SM[employer]ION TE[employer] Comment on above: 2007 section Korin Odonnell RN Comment on above: 2007 Ligation of fallopian tube Everett Holly LPN Comment on above: 2007 Ligation of fallopian tube K mariya Odonnell RN Comment on above: 2007 Plan of Treatment Date Care Activity Detail Author Start: 2049 RSV Immunization for Adults (1 - 1-dose 75+ series) RSV Immunization for Adults (1 - 1-dose 75+ series) [facility] Start: 06-06-2025 Screening for malign ant neoplasm of breast Mammogram [facility] Start: 05-02-2025 ambulatory Facility:[facility] Start: 04-14-2025 Registered Recurring Registered Recu rring -[facility] Start: 04-14-2025 End: 04-14-2025 Patient encounter procedure Encounter for education -[facility] Work Phone: Start: 04-11-2025 Non-patient / Non-visit Non-pa tient / Non-visit -[facility] Work Phone: Start: 04-11-2025 Registered Recurring Registered Recu rring -[facility] Start: 04-09-2025 End: 04-09-2025 Patient encounter procedure -[facility] Work Phone: Start: 04-07-2025 Non-patient / Non-visit Non-pa tient / Non-visit -[facility] Start: 04-02-2025 End: 04-02-2025 Patient encounter procedure Breast cancer, left breast -[facility] Work Phone: Start: 04-01-2025 Registered Recurring Registered Recu rring -[facility] Start: 03-26-2025 End: 03-26-2025 Patient encounter procedure Breast cancer, left breast -[facility] Work Phone: Start: 02-17-2025 End: 02-17-2025 ambulatory 02/17/2025 2:00 PM EDT Visit (SP) Office [facility] [address] [place], [place] [id number] Natacha Birmingham MD [address] [address] 7cm ovarian cyst [facility] Comment on above: 7cm ovarian cyst Start: 02-03-2025 Influenza vaccination Influenza Vacc ine (#1) [facility] Start: 01-30-2025 [facility] Start: 01-30-2025 Vital signs measurements [facility] Start: 01-16-2025 [facility] Start: 01-16-2025 Vital signs measurements [facility] Start: 01-02-2025 [facility] Start: 01-02-2025 Vital signs measurements [facility] Start: 2024 Pneumococcal Vaccine : 50+ (1 of 1 - PCV) Pneumococcal Vaccine: 50+ (1 of 1 - PCV) [facility] Start: 2024 Pneumococcal Vaccine : 50+ (2 of 2 - PCV) Pneumococcal Vaccine: 50+ (2 of 2 - PCV) [facility] Start: 2024 Pneumococcal Vaccine : 50+ Years (2 of 2 - PCV) Pneumococcal Vaccine: 50+ Years (2 of 2 - PCV) [facility] Start: 2024 Shingrix Vaccine (1 of 2) Iverson grix Vaccine (1 of 2) [facility] Start: 2024 Zoster Vaccines (1 of 2) Zoste r Vaccines (1 of 2) [facility] Start: 12-26-2024 [facility] Start: 12-26-2024 Vital signs measurements [facility] Start: 12-26-2024 [facility] Start: 12-23-2024 Pelvic echography Pelvic w/ Transvag inal [facility] Start: 12-23-2024 US Pelvis [facility] Start: 12-19-2024 Cancer Ag 125 [Units/volume] in Serum or Plasma [facility] Start: 12-19-2024 Lab findings surveillance [facility] Start: 12-19-2024 [facility] Start: 12-19-2024 Vital signs measurements [facility] Start: 12-04-2024 [facility] Start: 12-04-2024 Vital signs measurements [facility] Start: 11-21-2024 [facility] Start: 11-07-2024 [facility] Start: 10-24-2024 Venous catheter care management [facility] Start: 10-17-2024 [facility] Start: 09-11-2024 Mastectomy partial PARTIAL MASTECTOM Y [facility] Start: 09-11-2024 Patient discharge [facility] Start: 08-26-[address] [facility] Work Phone: Start: 08-13-2024 Patient discharge [facility] Start: 08-13-2024 Anesthesia radical/modified radical breast ANESTH SURGERY OF BREAST [facility] Start: 08-13-2024 Inj radioactive trac er for id of sentinel node RA TRACER ID OF SENTINL NODE [facility] Start: 08-13-2024 Insj tunneled ctr va d w/subq port age 4 yr/> INSERT TUNNELED CV CATH [facility] Start: 08-13-2024 Mastectomy partial w/axillary lymphadenectomy P-MASTECTOMY W/LN REMOVAL [facility] Start: 08-13-2024 Urine test [facility] Start: 07-08-[address] [facility] Work Phone: Start: 06-20-[address] [facility] Work Phone: Start: 06-17-2024 Patient encounter procedure Medical; PHYSICAL - [facility]. Start: 17-Jun-2024 09:50-05:00 SAUMYA Martin Appointment Request [facility]. Start: 06-17-2024 Cytp c/v auto thin l yr prepj scr mnl rescr phys [facility]. Start: 06-10-2024 Blood count complete auto&auto difrntl wbc CBC, PLATELETS & AUT DIFF (F) (05876) Start: 10-Jun-2024 Request [employer]; [facility]. Start: 06-10-2024 Comprehensive metabo lic panel CMP w/ GFR* (95561) Start: 10-Jun-2024 Request [facility]. Start: 06-10-2024 Lipid panel LIPID PANEL ([id number]) Start: 10-Jun-2024 Request [facility]. Start: 06-10-2024 Us guidance needle placement img s&i ULTRASOUND GUIDED BIOPSY OF LEFT BREAST (29508) Start: 10-Jun-2024 Intent [facility]; [facility] Start: 06-10-2024 Nursing evaluation o f patient and report Medical; Nurse visit - FASTING LABS-[facility] Start: 10-Jun-2024 08:30-05:00 ROOM, PROCEDURE (DRAW) Appointment [facility] Start: 06-06-2024 Diagnostic mammograp hy computer-aided detcj bi Mammogram 3D DIAGNOSTIC, bilateral (tomosynthesis) (08384) Start: 06-Jun-2024 Intent [facility]; [facility] Start: 06-06-2024 Us breast uni real t jerald with image limited Breast US, Unilateral Complete, Left (32786) Start: 06-Jun-2024 Intent [facility]; [facility] Start: 02-04-2024 COVID-19 Vaccine ( season) COVID-19 Vaccine ( season) [facility] Start: 01-01-2020 Diabetes Screening Diabetes Screenin g [facility] Start: 01-01-2020 Lipid panel Lipid Screening [facility] Start: 01-01-2020 Screening for malign ant neoplasm of colon [facility] Start: 2014 Screening for malign ant neoplasm of breast Mammogram Screening [facility] Start: 2004 Screening for malign ant neoplasm of cervix [facility] Start: 01-01-1996 Screening for malign ant neoplasm of cervix [facility] Start: 1993 DTaP/Tdap/Td Vaccine s (1 - Tdap) DTaP/Tdap/Td Vaccines (1 - Tdap) [facility] Start: 1993 Hepatitis B Vaccine (1 of 3 - 19+ 3-dose series) Hepatitis B Vaccine (1 of 3 - 19+ 3-dose series) [facility] Start: 1993 Hepatitis B Vaccines (1 of 3 - 19+ 3-dose series) Hepatitis B Vaccines (1 of 3 - 19+ 3-dose series) [facility] Start: 1993 Urine microalbumin profile DTa P,Tdap,Td Vaccine (1 - Tdap) [facility] Start: 1992 Anxiety Screening Anxiety Screening [facility] Start: 1992 Depression Screening Depression Scre [facility] Start: 1992 Hepatitis C screening Hepatitis C Sc sanjeev [facility] Start: 1992 HIV screening HIV Screening [facility] Start: 1986 Depression Screening Depression Scre [facility] Start: 1974 HIV screening HIV Screening [facility] Start: 1974 Screening for malign ant neoplasm of colon [facility] Alanine aminotransfe rase [Enzymatic activity/volume] in Serum or Plasma [facility] Albumin [Mass/volume ] in Serum or Plasma [facility] Alkaline phosphatase [Enzymatic activity/volume] in Serum or Plasma [facility] Anion gap in Serum o r Plasma [facility] Bilirubin, total measurement [facility] BUN/Creatinine ratio [facility] Calcium [Mass/volume ] in Serum or Plasma [facility] Carbon dioxide, tota l [Moles/volume] in Central venous blood [facility] Carcinoembryonic ant igen measurement [facility] CBC W Auto Different ial panel - Blood [facility] Comprehensive metabo lic 2000 panel - Serum or Plasma [facility] Creatinine [Mass/vol ume] in Serum or Plasma [facility] Erythrocyte mean corpuscular volume determination [facility] Erythrocyte mean corpuscular volume determination [facility] Ferritin [Mass/volum e] in Serum or Plasma [facility] Glucose [Mass/volume ] in Serum or Plasma [facility] Hematocrit [Volume Fraction] of Blood [facility] Hematocrit [Volume Fraction] of Blood [facility] Hemoglobin [Mass/vol ume] in Blood [facility] Hemoglobin [Mass/vol ume] in Blood [facility] Iron and Iron bindin g capacity panel - Serum or Plasma [facility] Leukocytes [#/volume ] in Blood [facility] Leukocytes [#/volume ] in Blood [facility] Magnesium measurement [facility] Mean corpuscular hemoglobin concentration determination [facility] Mean corpuscular hemoglobin concentration determination [facility] Mean corpuscular hemoglobin determination [facility] Mean corpuscular hemoglobin determination [facility] Measurement of renal function [facility] Neutrophil count [facility] Neutrophil count [facility] Neutrophil percent differential count [facility] Neutrophil percent differential count [facility] Patient referral [facility] Work Phone: Platelets [#/volume] in Blood [facility] Platelets [#/volume] in Blood [facility] Positron emission tomography with computed tomography [facility] Potassium measurement [facility] Red blood cell count [facility] Red blood cell count [facility] Red cell distributio n width determination [facility] Red cell distributio n width determination [facility] Serum chloride measurement [facility] Serum inorganic phos phate measurement [facility] Sodium measurement [facility] Total protein measurement [facility] Urea nitrogen [Mass/volume] in Serum or Plasma [facility] US Abdomen limited [facility] US Heart [facility] US Pelvis [facility] Immunizations Immunization Date Immunization Notes Care Provider Oliva shanks 01-22-2019 measles, mumps and rubella virus vaccine Danielito Gabriel MD Work Phone: [facility]; [facility]. Comment on above: Site: Right ArmVIS G iven: * Measles/Mumps/Rubella (MMR) (07/17/17) 02-13-2013 pneumococcal polysaccharide vaccine, 23 valent Danielito Gabriel MD Work Phone: [facility]; [facility]. Comment on above: Site: Deltoid (Left) VIS Given: * Pneumococcal Polysaccharide (PPSV23) (03/10/09) 04-12-2010 influenza, seasonal, injectable Danielito Gabriel MD Work Phone: [facility]; [facility]. Comment on above: Site: Deltoid Area ( Left)VIS Given: * Inactivated Influenza Vaccine (01/13/09) 04-12-2010 IMMUNIZATION ADMIN ([id number]) Danielito Gabriel MD Work Phone: [facility]; [facility]. 04-12-2010 influenza virus vacc ine, unspecified formulation Rj Ta MD Work Phone: [facility] Payers Date Payer Category Payer Commercial Managed C are - HMO [employer] [id number] 5 2024 Exclusive Provider Organization [facility] [id number] 5 2024 Private Health Insurance [employer] E [id number] 2024 Self-pay 2024 Unknown [id number] 1974 Unknown [id number] 2.16.840.1.313034.3.579 .2.651 Self-pay [id number] Unknown [employer] Unknown [id number] 2.16.840.1.216687.3.579 .2.462 Unknown [id number] 2.16.840.1.367913.3.579 .2.462 Unknown [id number] 2.16.840.1.707256.3.579 .2.462 Unknown [id number] 2.16.840.1.765004.3.579 .2.462 Unknown [id number] 2.16.840.1.969990.3.579 .2.462 Unknown [id number] 2.16.840.1.103948.3.579 .2.462 Unknown [id number] 2.16.840.1.784398.3.579 .2.462 Unknown [id number] 2.16.840.1.965144.3.579 .2.462 Unknown [id number] 2.16.840.1.940547.3.579 .2.462 Unknown [id number] 2.16.840.1.044598.3.579 .2.462 Unknown [id number] 2.16.840.1.452606.3.579 .2.462 Unknown [id number] 2.16.840.1.566161.3.579 .2.462 Unknown [id number] 2.16.840.1.437273.3.579 .2.462 Unknown [id number] 2.16.840.1.723458.3.579 .2.462 Unknown [id number] 2.16.840.1.351082.3.579 .2.462 Unknown [id number] 2.840.1.097308.3.579 .2.462 Unknown [id number] 2.16.840.1.192193.3.579 .2.462 Unknown [id number] 2.840.1.756981.3.579 .2.462 Unknown [id number] 2.840.1.710695.3.579 .2.462 Unknown [id number] 2.840.1.445610.3.579 .2.462 Unknown [id number] 2.840.1.817831.3.579 .2.462 Unknown [id number] 2.840.1.996845.3.579 .2.462 Unknown [id number] 2.840.1.580163.3.579 .2.462 Unknown [id number] 2.840.1.199218.3.579 .2.462 Unknown [id number] 2.840.1.742218.3.579 .2.462 Unknown [id number] 2.840.1.528624.3.579 .2.462 Unknown [id number] 2.840.1.182089.3.579 .2.462 Unknown [id number] .840.1.452881.3.579 .2.462 Unknown [id number] 2.840.1.663603.3.579 .2.462 Unknown [id number] 2.840.1.650210.3.579 .2.462 Unknown [id number] 2.840.1.581979.3.579 .2.462 Unknown [id number] 2.840.1.835596.3.579 .2.462 Unknown [id number] 2.840.1.028381.3.579 .2.462 Unknown [id number] 2.16.840.1.454203.3.579 .2.462 Unknown [id number] 2.16.840.1.161274.3.579 .2.462 Unknown [id number] 2.16.840.1.119432.3.579 .2.462 Unknown [id number] 2.16.840.1.396942.3.579 .2.462 Unknown [id number] 2.16.840.1.297792.3.579 .2.462 Unknown [id number] 2.16.840.1.056718.3.579 .2.462 Unknown [id number] 2.16.840.1.905594.3.579 .2.462 Unknown [id number] 2.16.840.1.453878.3.579 .2.462 Unknown [id number] 2.16.840.1.429105.3.579 .2.462 Unknown [id number] 2.16.840.1.286669.3.579 .2.462 Unknown [id number] 2..840.1.026095.3.579 .2.462 Unknown [id number] 2.16.840.1.599509.3.579 .2.462 Unknown [id number] 2.16.840.1.978492.3.579 .2.462 Unknown [id number] 2.16.840.1.920377.3.579 .2.462 Unknown [id number] 2.16.840.1.851277.3.579 .2.462 Unknown [id number] 2.16.840.1.520916.3.579 .2.462 Unknown [id number] 2.16.840.1.808450.3.579 .2.462 Unknown [id number] 2.16.840.1.657727.3.579 .2.462 Unknown [id number] 2.16.840.1.376909.3.579 .2.462 Unknown [id number] 2.16.840.1.900061.3.579 .2.462 Unknown [id number] 2.16.840.1.379949.3.579 .2.462 Unknown [id number] 2.16.840.1.350572.3.579 .2.462 Unknown [id number] 2.16.840.1.364298.3.579 .2.462 Unknown [id number] 2.16.840.1.089363.3.579 .2.462 Unknown [id number] 2.16.840.1.613236.3.579 .2.462 Unknown [id number] 2.16.840.1.888174.3.579 .2.462 Unknown [id number] 2.16.840.1.405580.3.579 .2.462 Social History Date Type Detail Facility Tobacco Use: Tobacco Use: ; N ever smoker. [facility] Start: 1975 Female [facility] Start: 08-01-2024 End: 12-13-2024 Never smoked tobacco [facility] Alcohol Use: Alcohol Use: ; None. [facility] Start: 01-10-2025 End: 02-17-2025 Caffeine Use Caffeine Use [facility]; [facility] Start: 08-13-2024 End: 01-06-2025 Sex Female (finding) [facility] Start: 01-10-2025 End: 02-17-2025 Tobacco use and exposure Smokeless tobacco non-user [facility] Start: 01-10-2025 Alcoholic beverage intake Ex-drinker (finding) [facility] Start: 01-10-2025 End: 02-17-2025 Tobacco use panel [facility] Start: 1975 Sex assigned at Not on file [facility] Tobacco smoking status [facility] Tobacco smoking consumption unknown [facility] Work Phone: Start: 05-06-2012 Sex Female [facility] Start: 02-17-2025 Alcoholic beverage intake Lifetime non-drinker (finding) [facility] How often do you hav e a drink containing alcohol? Never [facility] NEGATED: Highlighted row Not [facility] Medical Equipment Procedure Code Equipment Code Equipment Origin al Text Equipment Identifier Dates Lumpectomy, breast, bilateral, after needle localization, with bilateral sentinel and Ligation clip, metallic ()[id number] FDA Start: 08-13-2024 Lumpectomy, breast, bilateral, after needle localization, with bilateral sentinel and Ligation clip, metallic ()[id number] FDA Start: 08-13-2024 Lumpectomy, breast, bilateral, after needle localization, with bilateral sentinel and Ligation clip, metallic ()[id number] FDA Start: 08-13-2024 Lumpectomy, breast, bilateral, after needle localization, with bilateral sentinel and Ligation clip, metallic ()[id number] FDA Start: 08-13-2024 Lumpectomy, breast, bilateral, after needle localization, with bilateral sentinel and Ligation clip, metallic ()[id number] FDA Start: 08-13-2024 Excisional biopsy of mass of breast with needle localization Ligation clip, metallic ()[id number] FDA Start: 09-11-2024 ([id number]) Vascular port/catheter ()[id number] FDA Start: 08-13-2024 Goals Date Patient Goal Desired Activity /State Functional Status Date Assessment [facility] Status Date Assessment Result Facility 01-03-2025 Cognitive function Awake;Alert;A ppropriate;Fo llows Commands [facility] Work Phone: 09-11-2024 Cognitive function Voice/Name [facility] Work Phone: 08-13-2024 Cognitive function Voice/Name [facility] Work Phone: Clinical Notes 06-13-2024 to 03-26-2025 Natacha Birmingham MD - 02/17/2025 2:00 PM EDTTelephone Encounter - Joselyn Yarbrough RN - 01/28/2025 2:58 PM EDTTelephone Encounter - Joeslyn Yarbrough RN - 01/28/2025 2:58 PM EDT Note Date & Type Note Facility 03-26-2025 Progress note [facility] 03-19-2025 Progress note [facility] 03-05-2025 Progress note [facility] 02-20-2025 Progress note [facility] 02-20-2025 Progress note [facility] 02-17-2025 History of Present illness Narrative Gynecologic Oncology Consultation Note [facility] Referring provider: Dr. Jennifer Duenas MD ([facility]) Chief complaint: Left adnexal mass HPI: This is a 49 year old patient with left breast cancer (ER/VA positive, her2 neg), HANNAH, h/o migraines, and restless leg syndrome referred for L adnexal mass. This adnexal mass was first identified on PET CT scan earlier this year - notable it was not PET avid - followed by 2 additional pelvic ultrasounds. Denies nausea, vomiting, changes in bowel or bladder function, bloating, abdominal pain, pelvic pain. No h/o hormone replacement. Initially planned for BSO with Dr. Duenas, last seen on 12/13/24, who rec'd BSO but was referred to [facility] for second opinion. Breast cancer was diagnosed in Jun 2024, ER+ VA+ HER2-. She had lumpectomy and sentinel node dissection with finding of positive nodes. Received 8 cycles of chemo: 4 AC dose-dense and 4 Taxol. Last dose 01/30/25, with plan for radiation. Oncology at [facility]. Dr. Suarez. ROS: 14 point ROS negative unless indicated in above HPI. Medical history: PAST MEDICAL HISTORY Diagnosis Date Breast cancer, left (HCC) 06/2024 with regional lymph node metastasis Iron deficiency anemia Migraine Restless leg syndrome Surgical history: PAST SURGICAL HISTORY Procedure Laterality Date DELIVERY ONLY N/A 2007 SECTION SINGLE N/A 1999 LUMPECTOMY/RADIOTHERAPY DIAG MAMM/A10 Left 2024 Drag Down history: OB Hx: , William 1996 , Ch[place] 1999 c/s, Chiny[place] 2007 c/s menarche at 14-15 menses - typically regular, heavy, lasting 5 days Family history: Family History Problem Relation Age of Onset Stroke Mother Breast Cancer No Family History Ovarian cancer No Family History Uterine Cancer No Family History Colon Cancer No Family History Social history: SOCIAL HISTORY[1] Medications: Current Outpatient Medications Medication Sig Dispense Refill ascorbic acid (VITAMIN C) 250 mg chew Take 500 mg by mouth once daily. ergocalciferol, vitamin D2, (VITAMIN D2 PO) Take by mouth. No current facility-administered medications for this visit. Healthcare maintenance: not discussed today PE: EGOG PS 0 BP 122/76 (BP Site: Right Arm, BP Position: Sitting, BP Cuff Size: Extra Large Adult) Pulse 68 Temp 36.6 C (97.9 F) (Oral) Ht 175.3 cm (5' 9) Wt 73 kg (161 lb) LMP (LMP Unknown) SpO2 100% BMI 23.78 kg/m Gen: Alert, comfortable. No acute distress. Card: Regular rate. Resp: Good effort and expansion. Abd: Nondistended. Extremity: No LE edema. Remainder of exam deferred Labs/Imaging: CEA 1.9 (12/19/24) [place] [address].7 (12/19/24) No images were personally reviewed because they were not available. US Pelvis TAB and TV on 12/27/24: Findings; UTERUS/CERVIX: 1.3 cm uterine fibroid. The uterus measures 7.9 x 6.0 x 4.3 cm. The endometrial stripe measures 0.29 cmm in thickness. RIGHT OVARY: Unremarkable. Normal blood flow. The right ovary measures 1.7 x 1.5 x 1.4 cm. LEFT OVARY: 7.0 left ovarian cyst containing debris and possible peripheral calculi. Normal blood flow. The left ovary measures 7.7 x 7.3 x 5.8 cm. FREE FLUID: No free fluid. BLADDER: Unremarkable as visualized. Wall is normal thickness for degree of distention. Impression: 7.0 left ovarian cyst containing debris and possible peripheral calculi. No significant change from the prior exam. PET/CT on 10/01/24 IMPRESSION: Peripheral hypermetabolic uptake along the left breast mass, greatest along the left lower and upper aspects. Recommend correlation with recent lumpectomy surgical margins and consideration of increased reexcision field. Hypermetabolic uptake involving the left level I axillary nodes. No hypermetabolic level II or III nodes visualized on PET-CT examination. Mild asymmetric hypermetabolic activity of the left breat parenchyma compared to the right, which may be due to inflammation from recent surgical excision. Ovarian cystic lesion within the lower pelvis without hypermetabolic activity and most compatible with ovarian cyst, however this is incompletely characterized by noncontrast examination. Pelvic ultrasound is recommended for further evaluation. A/P: This is a 49 year old patient here for consultation for a LEFT ADNEXAL MASS. Pelvic mass: - Discussed differential including benign, borderline, malignant, or metastatic tumors to the ovary. - After history, exam, and reviewing imaging reports, I feel this is most likely a benign ovarian cyst. However, we discussed that ultimately the only way to accurately diagnose an ovarian mass is through removal and pathologic evaluation. - I will request and review her imaging in more detail and discuss any changes to the plan at that time. - In the context of her left breast cancer with regional lymph node metastasis, a nonurgent BSO is recommended for further management of her breast cancer. This can be delayed until she completes her radiation and be performed by her general civilian jail officer unless I feel otherwise upon my personal review of her imaging. - Will call once images are available, and I have had a chance to review them. Left Breast cancer: - Discussed the role of genetic testing given her age of diagnosis - Reports BRCA testing negative. Unsure if she had panel testing. - Will request records from [employer] and order genetic testing if not done already Hot flashes: - Discussed SSRIs and Veozah as nonhormonal treatment methods. - Advised patient to consider her options and then follow up with me, her benign civilian jail officer, or her breast oncologist. Natacha Birmingham MD, MPH Gynecologic Oncologist Medical Decision Making: Problems: Moderate: New problem with uncertain prognosis High: Illness/injury w/ threat to life/body function Data: Unique source(s) for external note(s) reviewed: 3+ Unique test result(s) reviewed: 3+ Independent interpretation of test from other physician/QHCP Risk: Minimal: Minimal risk from testing/treatment Medical Decision Making Level: 5 - High [1] Social History Tobacco Use Smoking status: Never Smokeless tobacco: Never Substance Use Topics Alcohol use: Never Drug use: Never documented in this encounter [facility] 02-17-2025 Note HNO ID: [id number] Author: NATACHA BIRMINGHAM MD Service: ? Author Type: Physician Type: Progress Notes Filed: 02/19/2025 08:40 Note Text: Gynecologic Oncology Consultation Note [facility] Referring provider: Dr. Jennifer Duenas MD ([facility]) Chief complaint: Left adnexal mass HPI: This is a 49 year old patient with left breast cancer (ER/VA positive, her2 neg), HANNAH, h/o migraines, and restless leg syndrome referred for L adnexal mass. This adnexal mass was first identified on PET CT scan earlier this year - notable it was not PET avid - followed by 2 additional pelvic ultrasounds. Denies nausea, vomiting, changes in bowel or bladder function, bloating, abdominal pain, pelvic pain. No h/o hormone replacement. Initially planned for BSO with Dr. Duenas, last seen on 12/13/24, who rec'd BSO but was referred to [facility] for second opinion. Breast cancer was diagnosed in Jun 2024, ER+ VA+ HER2-. She had lumpectomy and sentinel node dissection with finding of positive nodes. Received 8 cycles of chemo: 4 AC dose-dense and 4 Taxol. Last dose 01/30/25, with plan for radiation. Oncology at [facility]. Dr. Suarez. ROS: 14 point ROS negative unless indicated in above HPI. Medical history: PAST MEDICAL HISTORY Diagnosis Date - Breast cancer, left (HCC) 06/2024 with regional lymph node metastasis - Iron deficiency anemia - Migraine - Restless leg syndrome Surgical history: PAST SURGICAL HISTORY Procedure Laterality Date - DELIVERY ONLY N/A 2007 - SECTION SINGLE N/A 1999 - LUMPECTOMY/RADIOTHERAPY DIAG MAMM/A10 Left 2024 Drag Down history: OB Hx: , William 1996 , Cholo 1999 c/s, Chinyere 2007 c/s menarche at 14-14 menses - typically regular, heavy, lasting 5 days Family history: Family History Problem Relation Age of Onset - Stroke Mother - Breast Cancer No Family History - Ovarian cancer No Family History - Uterine Cancer No Family History - Colon Cancer No Family History Social history: SOCIAL HISTORY[1] Medications: Current Outpatient Medications Medication Sig Dispense Refill - ascorbic acid (VITAMIN C) 250 mg chew Take 500 mg by mouth once daily. - ergocalciferol, vitamin D2, (VITAMIN D2 PO) Take by mouth. No current facility-administered medications for this visit. Healthcare maintenance: not discussed today PE: EGOG PS 0 BP 122/76 (BP Site: Right Arm, BP Position: Sitting, BP Cuff Size: Extra Large Adult) Pulse 68 Temp 36.6 ?C (97.9 ?F) (Oral) Ht 175.3 cm (5' 9) Wt 73 kg (161 lb) LMP (LMP Unknown) SpO2 100% BMI 23.78 kg/m? Gen: Alert, comfortable. No acute distress. Card: Regular rate. Resp: Good effort and expansion. Abd: Nondistended. Extremity: No LE edema. Remainder of exam deferred Labs/Imaging: CEA 1.9 (12/19/24) [place] [address].7 (12/19/24) No images were personally reviewed because they were not available. US Pelvis TAB and TV on 12/27/24: Findings; UTERUS/CERVIX: 1.3 cm uterine fibroid. The uterus measures 7.9 x 6.0 x 4.3 cm. The endometrial stripe measures 0.29 cmm in thickness. RIGHT OVARY: Unremarkable. Normal blood flow. The right ovary measures 1.7 x 1.5 x 1.4 cm. LEFT OVARY: 7.0 left ovarian cyst containing debris and possible peripheral calculi. Normal blood flow. The left ovary measures 7.7 x 7.3 x 5.8 cm. FREE FLUID: No free fluid. BLADDER: Unremarkable as visualized. Wall is normal thickness for degree of distention. Impression: 7.0 left ovarian cyst containing debris and possible peripheral calculi. No significant change from the prior exam. PET/CT on 10/01/24 IMPRESSION: Peripheral hypermetabolic uptake along the left breast mass, greatest along the left lower and upper aspects. Recommend correlation with recent lumpectomy surgical margins and consideration of increased reexcision field. Hypermetabolic uptake involving the left level I axillary nodes. No hypermetabolic level II or III nodes visualized on PET-CT examination. Mild asymmetric hypermetabolic activity of the left breat parenchyma compared to the right, which may be due to inflammation from recent surgical excision. Ovarian cystic lesion within the lower pelvis without hypermetabolic activity and most compatible with ovarian cyst, however this is incompletely characterized by noncontrast examination. Pelvic ultrasound is recommended for further evaluation. A/P: This is a 49 year old patient here for consultation for a LEFT ADNEXAL MASS. Pelvic mass: - Discussed differential including benign, borderline, malignant, or metastatic tumors to the ovary. - After history, exam, and reviewing imaging reports, I feel this is most likely a benign ovarian cyst. However, we discussed that ultimately the only way to accurately diagnose an ovarian mass is through removal and pathologic evaluation. - I will request and review her imaging in more det (more content not included)... [facility] 01-28-2025 Telephone encounter Note Called Susan to review new patient appointment date and time. No answer, left detailed message informing her of 02/17 at 2:00 pm, appointment, and office address. Encouraged her to call with any questions or concerns. Joselyn Yarbrough RN [facility] 01-28-2025 Miscellaneous Notes Called Susan to review new patient appointment date and time. No answer, left detailed message informing her of 02/17 at 2:00 pm, appointment, and office address. Encouraged her to call with any questions or concerns. Joselyn Yarbrough RN documented in this encounter [facility] 01-16-2025 Progress note [facility] 01-16-2025 Progress note Note Date/Time January 16, 2025 9:47am [facility] [address] [place] [address] OFFICE VISIT Date of Service: 01/16/25 0920 MR#: [id number] Acct: [id number] Name: SUSAN LIN Rep #: [id number] : 1975 From: Bandar portillo MD Age/Sex: 49/F [place] [facility] Status: Signed HPI Subjective Date of Service 01/16/25 Chief Complaint Breast cancer on treatment History of Present Illness 49-year-old female who never had screening mammography and presented in June 2024 after a self palpated painless left breast mass. June 10, 2024 left breast ultrasound: Category 5, solid lesion at 12 o'clock position measuring 19 mm in maximum diameter in addition to an abnormal appearing left axillary lymph June 13, 2024 MICROSCOPIC DIAGNOSIS A. Left breast mass, core biopsy: Invasive ductal carcinoma. Ductal carcinoma in situ. See cancer summary in the comment section. B. Left axillary lymph node, core biopsy: Metastatic carcinoma, consistent with breast primary. ER: positive (>95, moderate intensity) VA: positive (>95, strong intensity) Her2: equivocal (2+) Ki67: positive, low, ~10% [id number]: [facility] lab not amplified. June 24, 2024 breast MRI: IMPRESSION: Enhancing mass at the 2:00 to 3:00 position of the left breast corresponding to the ultrasonographic abnormality representing the index lesion. No other abnormality identified. August 13, 2024 lumpectomy with sentinel lymph node biopsy: MICROSCOPIC DIAGNOSIS A: LEFT BREAST, NEEDLE-LOCALIZED LUMPECTOMY: - Invasive ductal carcinoma NST, Grade 2, surgical margins negative, pT2 pN2a. - DCIS, extensive, intermediate grade with focal necrosis, involving the anterior surgical margin. - See Comment for Synoptic Report. B: SENTINEL LYMPH NODE #1, EXCISION: - Positive for metastasis (14 mm) (06/05). C: SENTINEL LYMPH NODE #2, EXCISION: - Positive for metastasis (/). D: LEFT AXILLARY CONTENTS, EXCISION: - Two lymph nodes positive for metastasis (2/2). E: NEW ANTERIOR MARGINS, EXCISION: - Negative for invasive carcinoma. - Additional IHC to rule out DCIS are PENDING (to be reported in an addendum). SYNOPTIC REPORT FOR INVASIVE BREAST CARCINOMA Specimen (P=partial, M=mastectomy): P Laterality (R=right, L=left): L Focality (U=unifocal, M=multifocal): U Tumor size (cm): 2.2 x 1.5 x 1.4 cm Histologic type: invasive ductal carcinoma Histologic grade: 2 Tubule score (1-3): 3 Nuclear score (1-3): 2 Mitotic score (1-3): 1 Skin (I=involved, N=negative, NA=not applicable): N Lymphovascular invasion (E=extensive, F=focal, N=not identified): assessment PENDING IHC (to be reported in an addendum). Margins of main specimen (P=positive, N=negative): N Distance to closest margin of main specimen (mm): 0.5 mm Designation of closest margin of main specimen: posterior Designation of other margins of main specimen </=1 mm: NA Re-resection margin status (P=positive, N=negative, NA=not applicable): N DCIS (P=present, N=not identified): P Nuclear grade: 2 Comedo necrosis (P=present, N=not identified): P Extensive intraductal component (P=present, N=not identified): P Margins of main specimen (P=positive, N=negative): P Distance to closest margin of main specimen (mm): 0 mm Designation of closest margin of main specimen: anterior Designation of other margins of main specimen </=2 mm: posterior Longest span </= 2 mm to margin of main specimen (mm): 2.5 mm Re-resection margin status (P=positive, N=negative, NA=not applicable): N Regional lymph nodes: Total number of lymph nodes: 4 Number of sentinel lymph nodes: 2 Number with macrometastases: 4 Number with micrometastases: NA Number with isolated tumor cells: NA Size of largest cole metastasis (mm): 14 mm Size of extranodal extension (mm) (N=not identified): N Estrogen receptor: positive (95%, strong intensity) Progesterone receptor: positive (90%, intermediate intensity) HER2 IHC: equivocal (2+) HER2 FISH: PENDING (at [facility]) Specimen in which ER/VA/HER2 performed: [id number] pTNM: pT2 pN2a ADDENDUM This addendum is to report the results of the IHC for ERG (blocks A9, A10) performed at [facility]: No definitive lymphovascular invasion is identified with the ERG IHC. ADDENDUM This addendum is to report the findings of the additional CK5/6 IHCs performed on blocks A8, E3, E5, E7: A8) A focus of DCIS closely approaches the LATERAL surgical margin of the lumpectomy. E3,5,7) Multiple foci of usual ductal hyperplasia (UDH) are demonstrated. No DCIS is observed in these sections of the new anterior margin. Genetic test ([facility]) July 2024 no known pathogenic or likely pathogenic variant detected. Treatment summary and response: Lumpectomy with sentinel lymph node biopsy August 13, 2024. Margin reexcision scheduled September 11, 2024 Adjuvant adriamycin/cyclophosphamide October 10?November (4 cycles) Adjuvant paclitaxel December 04, 2024 [facility] Medical History Transaminitis Regional lymph node metastasis present Encounter for chemotherapy management Well woman exam Ovarian cyst Encounter for education Wears glasses Low iron Restless leg syndrome History of migraine Non-smoker Iron deficiency anemia due to chronic blood loss Breast cancer Abnormal mammogram of left breast Surgical History Status post left breast lumpectomy History of Family History Mother CVA (cerebral vascular accident) Social History household members: spouse and children number of children: 3 current occupational status: employed current occupation: [employer] Smoking Status: Never smoker alcohol intake: never substance use type: does not use seatbelt use: always do you feel safe at home: Yes additional social history: - Reji ROS Constitutional Constitutional: Reports systems reviewed and no addt'l complaints, except as documented; Denies fever(s) or weight loss Eyes Eyes: Reports systems reviewed and no addt'l complaints, except as documented ENT HEENT: Reports systems reviewed and no addt'l complaints, except as documented; Denies mouth lesions Cardiovascular Cardiovascular: Reports systems reviewed and no addt'l complaints, except as documented; Denies chest pain with activity or edema Respiratory/Chest Respiratory/Chest: Reports systems reviewed and no addt'l complaints, except as documented; Denies cough or dyspnea on exertion Gastrointestinal Gastrointestinal: Reports systems reviewed and no addt'l complaints, except as documented; Denies change in bowel habits, hematochezia or melena Genitourinary Genitourinary: Reports systems reviewed and no addt'l complaints, except as documented Musculoskeletal Musculoskeletal: Reports systems reviewed and no addt'l complaints, except as documented Integumentary Integumentary: Reports systems reviewed and no addt'l complaints, except as documented; Denies new lesions Neurologic Neurologic: Reports systems reviewed and no addt'l complaints, except as documented; Denies focal weakness or paresthesias Psychiatric Psychiatric: Reports systems reviewed and no addt'l complaints, except as documented Hematologic/Lymphatic Hematologic/Lymphatic: Reports systems reviewed and no addt'l complaints, exceptas documented Allergic/Immunologic Allergic/Immunologic: Reports systems reviewed and no addt'l complaints, except as documented Intake Vital Signs 12/04/24 09:22 12/26/24 08:06 01/02/25 09:43 01/16/25 09:22 01/16/25 09:25 Height 5 ft 9 in 5 ft 9 in 5 ft 9 in 5 ft 9 in 5 ft 9 in Weight: 72.376 kg 72.631 kg BMI 23.6 23.6 BP 112/75 122/81 H Blood Pressure Location Rt brachial Lt brachial Position Sitting Sitting Respiration 18 18 Pulse 66 62 Pulse Source Monitor Monitor Temp 98.2 F 97.9 F Temperature Source Temporal Artery Temporal Artery Pulse Oximetry (%) 100 98 Oxygen Delivery Method room air room air Intake Is patient in pain?: No Allergies No Known Allergies Allergy (Verified 01/16/25 09:24) Medications ?Medication ?Instructions ?Recorded ?Confirmed ?Type ascorbic acid (vitamin C) 500 mg 500 mg PO DAILY 08/0101/16/25 History tablet (C-500) cholecalciferol (vitamin D3) 25 25 mcg PO DAILY 01/16/25 History mcg (1,000 unit) capsule (Vitamin D3) lidocaine-prilocaine 2.5 %-2.5 % 1 applic topical ONCE PRN port 09/26/24 01/16/25 Rx topical cream access 30 days #30 grams ondansetron 8 mg disintegrating 8 mg PO Q8H PRN nausea and 09/26/24 01/16/25 Rx tablet vomiting #30 tabs prochlorperazine maleate 10 mg 10 mg PO Q6H PRN nausea and 09/26/24 01/16/25 Rx tablet vomiting #30 tabs dexamethasone 4 mg tablet 8 mg (2 x 4 mg) PO .COMPLEX #14 11/07/24 01/16/25 Rx tabs omeprazole magnesium 20 mg 20 mg PO BID 11/21/2401/16 History capsule,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)) Central Venous Access Central Venous Access: Yes Port/PICC: Port Exam Physical Exam Narrative ECOG 0-1 Const alert, oriented x3 and no apparent distress General Appearance: cooperative and comfortable HEENT normocephalic Face and Sinus: normal facial exam Mouth: oral and palatal mucosa normal Eyes General Eye: normal appearance of both eyes Neck no lymphadenopathy and no JVD Chest Chest: vascular access Resp clear to auscultation bilaterally Cardio regular rate and regular rhythm GI soft to palpation, non-tender and non-distended; Negative for hepatosplenomegaly Back/Spine no thoracic nor lumbar tenderness Extremity no clubbing, cyanosis or edema Skin no rashes or lesions noted Neuro CN's II-XII intact bilaterally, moves all extremities and no focal motor deficits Coordination / Balance: [id number] test normal Speech: speech normal Psych mental status grossly normal Coding Level of Care Code Off vis,est,level 4 Exam Problem Focused Diagnoses Malignant neoplasm of left breast in female, estrogen receptor positive, unspecified site of breast C50.912; Z17.0 Breast location: unspecified site of breast Estrogen receptor status: positive Patient sex: female Laterality: left Regional lymph node metastasis present C77.9 Iron deficiency anemia due to chronic blood loss D50.0 Assessment and Plan Assessment and Plan (1) Breast cancer: Status: Acute Qualifiers: Breast location: unspecified site of breast Estrogen receptor status: positive Patient sex: female Laterality: left Qualified Code(s): C50.912 - Malignant neoplasm of unspecified site of left female breast; Z17.0 - Estrogen receptor positive status [ER+] Comment: ER VA positive, diagnosed Jun 2024 (2) Regional lymph node metastasis present: Status: Acute (3) Iron deficiency anemia due to chronic blood loss: Status: Chronic Plan 49-year-old female, premenopausal at diagnosis with invasive ductal cancer of the left breast high risk pathologic stage IIIA (T2, N2, M0) with metastatic cancer confirmed in all 4 sentinel lymph nodes. Cancer is ER positive (over 95% moderate), VA positive (over 95%, strong) HER2 2+ by immunohistochemistry, not amplified by FISH, Ki-67 positive low about 10%). Overall grade 2 Patient underwent lumpectomy with sentinel lymph node biopsy August 2024, reexcision of margin September 2024 and started systemic adjuvant chemotherapy October 2024 starting with dose dense Adriamycin and Cytoxan, completed 4 cycles which she tolerated with no grade 3 or 4 toxicities. She is then started the second phase of systemic adjuvant chemotherapy with Taxol December 05, 2023 Chronic comorbid conditions: Chronic iron deficiency anemia from menstrual loss. Recommendations: Based on NCCN guidelines and up-to-date review of treatment of early-stage breast cancer with intent to cure options are: 1-continue the second phase of systemic adjuvant chemotherapy with 4 cycles of Taxol at a dose dense schedule supported with growth factor December 04, 2024. 2. Adjuvant radiation therapy to the axilla to follow systemic chemotherapy. 3. Adjuvant hormonal therapy following radiation with an aromatase inhibitor, LHRH agonist ovarian suppression (until she undergoes planned oophorectomy) and 2 years of abemaciclib for high risk breast cancer. 4. Iron deficiency anemia chronic menstrual blood loss, she took oral iron for a while then she stopped due to GI side effects. Her anemia and iron profile has improved. Will recheck her iron profile after the end of systemic chemotherapy. Patient seen with her family, impression and plan discussed. Bandar Stubbs MD Salesperson Furniture, [facility] Divisions of Medical Oncology & Hematology Department of Internal Medicine [place] [id number] This note was generated using a voice recognition system software. Although it was reviewed by the author prior to finalization, it may still contain incorrect words, spelling, and punctuation that were not noted when reviewing prior to saving. If a clinically significant typo or inaccurately typed phrase is noted, please notify the author. 01/16/25 0947 <Electronically signed by Bandar swann MD> Date _ Bandar Munoz Signature: Date (if applicable) CC: ~ [facility] Work Phone: [phone]) 626-101108-11-2025 Telephone encounter Note* Telephone Encounter - Isaias Bo - 01/13/2025 2:01 PM EDT Patient came into office and showed [employer] network. Double checked with coworkerand the [employer] system, insurance is out of network. Informed patient. Patient acknowledged. Called referring office and informed them that we do not take the insurance. They stated they will take care of sending referral to another location. Apologized to patient for spending time coming here when insurance is OON but explained that her referring office did not send the card(s). Patient acknowledged. [id number] Miscellaneous Notes* Telephone Encounter - Isaias Bo - 01/13/2025 2:01 PM EDT Patient came into office and showed [employer] insurance select network. Double checked with coworkerand the [employer] system, insurance is out of network. Informed patient. Patient acknowledged. Called referring office and informed them that we do not take the insurance. They stated they will take care of sending referral to another location. Apologized to patient for spending time coming here when insurance is OON but explained that her referring office did not send the card(s). Patient acknowledged. documented in this encounterSWayne [id number] Radiology Diagnostic study note [facility] Imaging Services [address] [place] [address] Abdomen Limited MR#: [id number] Acct: [id number] Name: SUSAN LIN Rep #: [id number] : 1975 F [id number] From: Camilla Godinez MD PCP: TATE Genao Status: REG CLI Study:Abdomen Limited Date of Exam: 12/03 01/27 Exam# [id number] Ordering Dr: Alyssa Martinez NP DIRECTOR PHARMACEUTICAL-Paolo EXAM: US Abdomen Limited, Right Upper Quadrant CLINICAL INDICATION: TRANSAMINITIS TECHNIQUE: Real-time ultrasound of the right upper quadrant with image documentation. COMPARISON: No relevant prior studies available. FINDINGS: LIVER: The liver measures up to 6.0 cm. No intrahepatic bile duct dilation. GALLBLADDER: Negative Spence's sign was reported by the chief deputy clerk/bailiff. 0.5 cm gallbladder polyp. Gallbladder sludge. No gallstones. COMMON BILE DUCT: Unremarkable as visualized. No stones. No dilation. Commonbile duct measures 0.31cm in diameter. PANCREAS: Probable fatty pancreas. RIGHT KIDNEY: Unremarkable. No stones. No hydronephrosis. The right kidney measures 11.1 x 6.2 x 4.0 cm. US/Abdomen Limited IMPRESSION: Gallbladder polyp and sludge. Reading Location: [facility] CC: RAEGAN-Paolo Gillespie; TATE Genao ~ Mud Car Worker: Signed [facility]07-17-2025 Evaluation note* Diagnosis Onset Date Resolution Status Admit Date Encounter for chemotherapy management acute December 19, 2024 8:44am Transaminitis acute December 19, 2024 8:44am Breast cancer chronic December 19, 2024 8:44am Iron deficiency anemia due t o chronic blood loss chronic December 19 8:44am 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 December 19, 2024 8:44am Encounter for chemotherapy management acute December 26, 2024 7:33am Transaminitis acute December 26, 2024 7:33am Breast cancer chronic December 26, 2024 7:33am Iron deficiency anemia due t o chronic blood loss chronic December 26 7:33am 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 December 26, 2024 7:33am Encounter for chemotherapy management acute January 02, 2025 8:27am Transaminitis acute January 02, 2025 8:27am Breast cancer chronic January 02, 2025 8:27am Iron deficiency anemia due t o chronic blood loss chronic January 02 8:27am 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 January 02, 2025 8:27am Breast cancer chronic January 8:13am Iron deficiency anemia due t o chronic blood loss chronic January 16, 2025 8:13am 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 January 16 8:13am Encounter for chemotherapy management acute January 30 9:14am Breast cancer chronic January 9:14am Iron deficiency anemia due t o chronic blood loss chronic January 30, 2025 9:14am 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 January 30 9:14am Breast cancer, left breast acute February 20, 2025 12:27pm Breast cancer chronic February 032024 1:53pm Iron deficiency anemia due t o chronic blood loss chronic February 1:53pm 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 February 20, 2025 1:53pm Breast cancer, left breast acute March 05, 2025 9:23am Breast cancer, left breast acute March 12, 2025 9:11am Breast cancer, left breast acute March 19, 2025 9:17am Breast cancer, left breast acute March 26, 2025 9:19am Breast cancer, left breast acute April 02, 2025 9:16am Insomnia acute April 09, 2025 8:47am Ovarian cyst acute April 8:47am Breast cancer, left breast acute April 09, 2025 9:34am Encounter for education acute N ov2024 1:49pm Breast cancer chronic April 142024 1:49pm 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 April 14 1:49pm [facility] Work Phone: [phone] [facility] [address] [place] [address] OFFICE VISIT Date of Service: 12/19/24 0936 MR#: [id number] Acct: [id number] Name: SUSAN LIN Rep #: [id number] : 1975 From: Alyssa Garcia DIRECTOR PHARMACEUTICAL DIRECTOR PHARMACEUTICAL-C Age/Sex: 48/F [place] [facility] Status: Signed HPI Subjective Date of Service 12/19/24 Chief Complaint Breast cancer on treatment History of Present Illness 48-year-old female who never had screening mammography and presented in June 2024 after a self palpated painless left breast mass. June 10, 2024 left breast ultrasound: Category 5, solid lesion at 12 o'clock position measuring 19 mm in maximum diameter in addition to an abnormal appearing left axillary lymph June 13, 2024 MICROSCOPIC DIAGNOSIS A. Left breast mass, core biopsy: Invasive ductal carcinoma. Ductal carcinoma in situ. See cancer summary in the comment section. B. Left axillary lymph node, core biopsy: Metastatic carcinoma, consistent with breast primary. ER: positive (>95, moderate intensity) VA: positive (>95, strong intensity) Her2: equivocal (2+) Ki67: positive, low, ~10% [id number]: [facility] lab not amplified. June 24, 2024 breast MRI: IMPRESSION: Enhancing mass at the 2:00 to 3:00 position of the left breast corresponding to the ultrasonographic abnormality representing the index lesion. No other abnormality identified. August 13, 2024 lumpectomy with sentinel lymph node biopsy: MICROSCOPIC DIAGNOSIS A: LEFT BREAST, NEEDLE-LOCALIZED LUMPECTOMY: - Invasive ductal carcinoma NST, Grade 2, surgical margins negative, pT2 pN2a. - DCIS, extensive, intermediate grade with focal necrosis, involving the anterior surgical margin. - See Comment for Synoptic Report. B: SENTINEL LYMPH NODE #1, EXCISION: - Positive for metastasis (14 mm) (/). C: SENTINEL LYMPH NODE #2, EXCISION: - Positive for metastasis (1/). D: LEFT AXILLARY CONTENTS, EXCISION: - Two lymph nodes positive for metastasis (2/2). E: NEW ANTERIOR MARGINS, EXCISION: - Negative for invasive carcinoma. - Additional IHC to rule out DCIS are PENDING (to be reported in an addendum). SYNOPTIC REPORT FOR INVASIVE BREAST CARCINOMA Specimen (P=partial, M=mastectomy): P Laterality (R=right, L=left): L Focality (U=unifocal, M=multifocal): U Tumor size (cm): 2.2 x 1.5 x 1.4 cm Histologic type: invasive ductal carcinoma Histologic grade: 2 Tubule score (1-3): 3 Nuclear score (1-3): 2 Mitotic score (1-3): 1 Skin (I=involved, N=negative, NA=not applicable): N Lymphovascular invasion (E=extensive, F=focal, N=not identified): assessment PENDING IHC (to be reported in an addendum). Margins of main specimen (P=positive, N=negative): N Distance to closest margin of main specimen (mm): 0.5 mm Designation of closest margin of main specimen: posterior Designation of other margins of main specimen Re-resection margin status (P=positive, N=negative, NA=not applicable): N DCIS (P=present, N=not identified): P Nuclear grade: 2 Comedo necrosis (P=present, N=not identified): P Extensive intraductal component (P=present, N=not identified): P Margins of main specimen (P=positive, N=negative): P Distance to closest margin of main specimen (mm): 0 mm Designation of closest margin of main specimen: anterior Designation of other margins of main specimen Longest span Re-resection margin status (P=positive, N=negative, NA=not applicable): N Regional lymph nodes: Total number of lymph nodes: 4 Number of sentinel lymph nodes: 2 Number with macrometastases: 4 Number with micrometastases: NA Number with isolated tumor cells: NA Size of largest cole metastasis (mm): 14 mm Size of extranodal extension (mm) (N=not identified): N Estrogen receptor: positive (95%, strong intensity) Progesterone receptor: positive (90%, intermediate intensity) HER2 IHC: equivocal (2+) HER2 FISH: PENDING (at [facility]) Specimen in which ER/VA/HER2 performed: [id number] A pTNM: pT2 pN2a ADDENDUM This addendum is to report the results of the IHC for ERG (blocks A9, A10) performed at [facility]: No definitive lymphovascular invasion is identified with the ERG IHC. ADDENDUM This addendum is to report the findings of the additional CK5/6 IHCs performed on blocks A8, E3, E5, E7: A8) A focus of DCIS closely approaches the LATERAL surgical margin of the lumpectomy. E3,5,7) Multiple foci of usual ductal hyperplasia (UDH) are demonstrated. No DCIS is observed in these sections of the new anterior margin. Genetic test ([facility]) July 2024 no known pathogenic or likely pathogenic variant detected. Treatment summary and response: Lumpectomy with sentinel lymph node biopsy August 13, 2024. Margin reexcision scheduled September 11, 2024 Adjuvant adriamycin/cyclophosphamide October 10?November (4 cycles) Adjuvant paclitaxel December 04, 2024 Interval History The patient is presenting to clinic accompanied by spouse and friend for an evaluation anticipatingshe will begin cycle 6 Taxol. Tolerated first Taxol well citing less nausea but increase in severity and duration of bone ache following G CSF injection. Specifically denies fever, chills, sweats, headache, dizziness, chest pain,palpitations, cough, shortness of breath, abdominal pain, changes in her bowel habits/alexandru colored stools, pruritus, swelling or pain of her extremities and any episodes of bleeding or abnormal bruising. Appetite good, p.o. fluid intake described as adequate. Urine described as straw-colored. PFSH Medical History Regional lymph node metastasis present Encounter for chemotherapy management Well woman exam Ovarian cyst Encounter for education Wears glasses Low iron Restless leg syndrome History of migraine Non-smoker Iron deficiency anemia due to chronic blood loss Breast cancer Abnormal mammogram of left breast Surgical History Status post left breast lumpectomy History of Family History Mother CVA (cerebral vascular accident) Social History household members: spouse and children number of children: 3 current occupational status: employed current occupation: [employer] Smoking Status: Never smoker alcohol intake: never substance use type: does not use seatbelt use: always do you feel safe at home: Yes additional social history: - Reji ROS ROS Narrative Negative except as documented in the interval HPI Intake Vital Signs 11/21/24 09:20 12/19/24 09:37 12/19/24 09:45 Height 5 ft 9 in 5 ft 9 in 5 ft 9 in Weight: 159 lb 3 oz BMI 23.5 BP 124/71 H Blood Pressure Location Rt brachial Position Sitting Respiration 16 Pulse 67 Pulse Source Monitor Temp 98.5 F Temperature Source Temporal Artery Pulse Oximetry (%) 100 Oxygen Delivery Method room air Intake Is patient in pain?: No Allergies No Known Allergies Allergy (Verified 12/19/24 09:45) Medications ?Medication ?Instructions ?Recorded ?Confirmed ?Type ascorbic acid (vitamin C) 500 mg 500 mg PO DAILY 08/0112/19/24 History tablet (C-500) cholecalciferol (vitamin D3) 25 25 mcg PO DAILY 12/19/24 History mcg (1,000 unit) capsule (Vitamin D3) lidocaine-prilocaine 2.5 %-2.5 % 1 applic topical ONCE PRN port 09/26/24 12/19/24 Rx topical cream access 30 days #30 grams ondansetron 8 mg disintegrating 8 mg PO Q8H PRN nausea and 09/26/24 12/19/24 Rx tablet vomiting #30 tabs prochlorperazine maleate 10 mg 10 mg PO Q6H PRN nausea and 09/26/24 12/19/24 Rx tablet vomiting #30 tabs dexamethasone 4 mg tablet 8 mg (2 x 4 mg) PO .COMPLEX #14 11/07/24 12/19/24 Rx tabs omeprazole magnesium 20 mg 20 mg PO BID 11/21/2412/19 History capsule,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)) Have you fallen in the past year?: No Central Venous Access Central Venous Access: Yes Port/PICC: Port Laboratory Tests 12/19/24 08:44 WBC 10.7 Hgb 11.8 L Hct 35.1 L Plt Count 162 Absolute Neuts (auto) 7.9 H Sodium 141 Potassium 4.2 Chloride 106 Carbon Dioxide 23.5 BUN 8 Creatinine 0.52 L Glucose 98 Calcium 9.5 Magnesium 2.2 Total Bilirubin 0.28 AST 113 H ALT 179 H Alkaline Phosphatase 120 H Exam Physical Exam Narrative ECOG 0-1 Const alert, oriented x3 and no apparent distress General Appearance: comfortable HEENT normocephalic Face and Sinus: normal facial exam Mouth: oral and palatal mucosa normal Eyes General Eye: normal appearance of both eyes Neck no lymphadenopathy and no JVD Chest Chest: vascular access Resp clear to auscultation bilaterally Cardio regular rate and regular rhythm GI soft to palpation, non-tender and non-distended; Negative for hepatosplenomegaly Back/Spine no thoracic nor lumbar tenderness Extremity no clubbing, cyanosis or edema Skin no rashes or lesions noted Neuro CN's II-XII intact bilaterally, moves all extremities and no focal motor deficits Speech: speech normal Psych mental status grossly normal Coding Level of Care Code Off vis,est,level 4 Exam Problem Focused Diagnoses Malignant neoplasm of left breast in female, estrogen receptor positive, unspecified site of bgdnfqZ39.912; Z17.0 Breast location: unspecified site of breast Estrogen receptor status: positive Patient sex: female Laterality: left Regional lymph node metastasis present C77.9 Iron deficiency anemia due to chronic blood loss D50.0 Transaminitis R74.01 Encounter for chemotherapy management Z51.11 Assessment and Plan Assessment and Plan (1) Breast cancer: Status: Acute Qualifiers: Breast location: unspecified site of breast Estrogen receptor status: positive Patient sex: female Laterality: left Qualified Code(s): C50.912 - Malignant neoplasm of unspecified site of left female breast; Z17.0 - Estrogen receptor positive status [ER+] Comment: ER VA positive, diagnosed Jun 2024 (2) Regional lymph node metastasis present: Status: Acute (3) Iron deficiency anemia due to chronic blood loss: Status: Chronic (4) Transaminitis: Status: Acute (5) Encounter for chemotherapy management: Status: Acute Orders: Orders Abdomen Limited Today C50.912 - Malignant neoplasm of unspecified site of left female breast, R74.01 - Elevation of levels of liver transaminase levels, Z17.0 - Estrogen receptor positive status [ER+] Medications: Discontinued pegfilgrastim-cbqv (Udenyca) Discontinued Reason: Pt no longer taking (0.6 mL) 6 mg subcutaneously Q14d; 0.6 mL 7RF Plan 48-year-old female, premenopausal at diagnosis with invasive ductal cancer of the left breast high risk pathologic stage IIIA (T2, N2, M0) with metastatic cancer confirmed in all 4 sentinel lymph nodes. Cancer is ER positive (over 95% moderate), VA positive (over 95%, strong) HER2 2+ by immunohistochemistry, not amplified by FISH, Ki-67 positive low about 10%). Overall grade 2 Patient underwent lumpectomy with sentinel lymph node biopsy August 2024, reexcision of margin September2024 and started systemic adjuvant chemotherapy October 2024 starting with dose dense Adriamycin and Cytoxan which she tolerated with no grade 3 or 4 toxicities. Chronic comorbid conditions: Chronic iron deficiency anemia from menstrual loss. Recommendations: Based on NCCN guidelines and up-to-date review of treatment of early-stage breast cancer with intent to cure options are: 1-start the second phase of systemic adjuvant chemotherapy with 4 cycles of Taxol at a dose dense schedule supported with growth factor December 04, 2024. Hold cycle 2 dose dense Taxol today due to transaminitis. consider changing to 21 day Taxol administration. 2. Adjuvant radiation therapy to the axilla to follow systemic chemotherapy. 3. Adjuvant hormonal therapy following radiation with an aromatase inhibitor, LHRH agonist ovarian suppression (until she undergoes planned oophorectomy tentatively planned for February 04, 2025 under the care of Dr. Eddie Pereira) and 2 years of abemaciclib for high risk breast cancer. 4. Iron deficiency anemia chronic menstrual blood loss, she took oral iron for a while then she stopped due to GI side effects. Her anemia and iron profile has improved. Will recheck her iron profileafter the end of systemic chemotherapy. 5. Transaminitis?AST/ALT today greater than 3 times upper limit of normal. Delay cycle 2 dose denseTaxol. Request ultrasound abd Clinical Quality Measures Falls Risk Screening/Assistive Devices Have you fallen in the past year?: No 12/19/24 1043 h DIRECTOR PHARMACEUTICAL DIRECTOR PHARMACEUTICAL-C> Date _ Alyssa Gillespie DIRECTOR PHARMACEUTICAL DIRECTOR PHARMACEUTICAL-C Cosigner Signature: Date (if applicable) CC: ~ [facility]07-17-2025 Progress note Author Alyssa Gillespie [facility] Note Date/Time December 19, 2024 10:4 3am [facility] [address] [place] [address] [place] [address] OFFICE VISIT Date of Service: 12/19/24 0936 MR#: [id number] Acct: [id number] Name: SUSAN LIN Rep #: [id number] : 1975 From: Alyssa Garcia ch DIRECTOR PHARMACEUTICAL DIRECTOR PHARMACEUTICAL-C Age/Sex: 48/F [place] [facility] Status: Signed HPI Subjective Date of Service 12/19/24 Chief Complaint Breast cancer on treatment History of Present Illness 48-year-old female who never had screening mammography and presented in June 2024 after a self palpated painless left breast mass. June 10, 2024 left breast ultrasound: Category 5, solid lesion at 12 o'clock position measuring 19 mm in maximum diameter in addition to an abnormal appearing left axillary lymph June 13, 2024 MICROSCOPIC DIAGNOSIS A. Left breast mass, core biopsy: Invasive ductal carcinoma. Ductal carcinoma in situ. See cancer summary in the comment section. B. Left axillary lymph node, core biopsy: Metastatic carcinoma, consistent with breast primary. ER: positive (>95, moderate intensity) VA: positive (>95, strong intensity) Her2: equivocal (2+) Ki67: positive, low, ~10% [id number]: [facility] lab not amplified. June 24, 2024 breast MRI: IMPRESSION: Enhancing mass at the 2:00 to 3:00 position of the left breast corresponding to the ultrasonographic abnormality representing the index lesion. No other abnormality identified. August 13, 2024 lumpectomy with sentinel lymph node biopsy: MICROSCOPIC DIAGNOSIS A: LEFT BREAST, NEEDLE-LOCALIZED LUMPECTOMY: - Invasive ductal carcinoma NST, Grade 2, surgical margins negative, pT2 pN2a. - DCIS, extensive, intermediate grade with focal necrosis, involving the anterior surgical margin. - See Comment for Synoptic Report. B: SENTINEL LYMPH NODE #1, EXCISION: - Positive for metastasis (14 mm) (/). C: SENTINEL LYMPH NODE #2, EXCISION: - Positive for metastasis (/). D: LEFT AXILLARY CONTENTS, EXCISION: - Two lymph nodes positive for metastasis (2/2). E: NEW ANTERIOR MARGINS, EXCISION: - Negative for invasive carcinoma. - Additional IHC to rule out DCIS are PENDING (to be reported in an addendum). SYNOPTIC REPORT FOR INVASIVE BREAST CARCINOMA Specimen (P=partial, M=mastectomy): P Laterality (R=right, L=left): L Focality (U=unifocal, M=multifocal): U Tumor size (cm): 2.2 x 1.5 x 1.4 cm Histologic type: invasive ductal carcinoma Histologic grade: 2 Tubule score (1-3): 3 Nuclear score (1-3): 2 Mitotic score (1-3): 1 Skin (I=involved, N=negative, NA=not applicable): N Lymphovascular invasion (E=extensive, F=focal, N=not identified): assessment PENDING IHC (to be reported in an addendum). Margins of main specimen (P=positive, N=negative): N Distance to closest margin of main specimen (mm): 0.5 mm Designation of closest margin of main specimen: posterior Designation of other margins of main specimen </=1 mm: NA Re-resection margin status (P=positive, N=negative, NA=not applicable): N DCIS (P=present, N=not identified): P Nuclear grade: 2 Comedo necrosis (P=present, N=not identified): P Extensive intraductal component (P=present, N=not identified): P Margins of main specimen (P=positive, N=negative): P Distance to closest margin of main specimen (mm): 0 mm Designation of closest margin of main specimen: anterior Designation of other margins of main specimen </=2 mm: posterior Longest span </= 2 mm to margin of main specimen (mm): 2.5 mm Re-resection margin status (P=positive, N=negative, NA=not applicable): N Regional lymph nodes: Total number of lymph nodes: 4 Number of sentinel lymph nodes: 2 Number with macrometastases: 4 Number with micrometastases: NA Number with isolated tumor cells: NA Size of largest cole metastasis (mm): 14 mm Size of extranodal extension (mm) (N=not identified): N Estrogen receptor: positive (95%, strong intensity) Progesterone receptor: positive (90%, intermediate intensity) HER2 IHC: equivocal (2+) HER2 FISH: PENDING (at [facility]) Specimen in which ER/VA/HER2 performed: [id number] A pTNM: pT2 pN2a ADDENDUM This addendum is to report the results of the IHC for ERG (blocks A9, A10) performed at [facility]: No definitive lymphovascular invasion is identified with the ERG IHC. ADDENDUM This addendum is to report the findings of the additional CK5/6 IHCs performed on blocks A8, E3, E5, E7: A8) A focus of DCIS closely approaches the LATERAL surgical margin of the lumpectomy. E3,5,7) Multiple foci of usual ductal hyperplasia (UDH) are demonstrated. No DCIS is observed in these sections of the new anterior margin. Genetic test ([facility]elfina) July 2024 no known pathogenic or likely pathogenic variant detected. Treatment summary and response: Lumpectomy with sentinel lymph node biopsy August 13, 2024. Margin reexcision scheduled September 11, 2024 Adjuvant adriamycin/cyclophosphamide October 10?November (4 cycles) Adjuvant paclitaxel December 04, 2024 Interval History The patient is presenting to clinic accompanied by spouse and friend for an evaluation anticipating she will begin cycle 6 Taxol. Tolerated first Taxol well citing less nausea but increase in severity and duration of bone ache following G CSF injection. Specifically denies fever, chills, sweats, headache, dizziness, chest pain, palpitations, cough, shortness of breath, abdominal pain, changes in her bowel habits/alexandru colored stools, pruritus, swelling or pain of her extremities and any episodes of bleeding or abnormal bruising. Appetite good, p.o. fluid intake described as adequate. Urine described as straw-colored. PFSH Medical History Regional lymph node metastasis present Encounter for chemotherapy management Well woman exam Ovarian cyst Encounter for education Wears glasses Low iron Restless leg syndrome History of migraine Non-smoker Iron deficiency anemia due to chronic blood loss Breast cancer Abnormal mammogram of left breast Surgical History Status post left breast lumpectomy History of Family History Mother CVA (cerebral vascular accident) Social History household members: spouse and children number of children: 3 current occupational status: employed current occupation: [employer] Smoking Status: Never smoker alcohol intake: never substance use type: does not use seatbelt use: always do you feel safe at home: Yes additional social history: - Reji ROS ROS Narrative Negative except as documented in the interval HPI Intake Vital Signs 11/21/24 09:20 12/19/24 09:37 12/19/24 09:45 Height 5 ft 9 in 5 ft 9 in 5 ft 9 in Weight: 159 lb 3 oz BMI 23.5 BP 124/71 H Blood Pressure Location Rt brachial Position Sitting Respiration 16 Pulse 67 Pulse Source Monitor Temp 98.5 F Temperature Source Temporal Artery Pulse Oximetry (%) 100 Oxygen Delivery Method room air Intake Is patient in pain?: No Allergies No Known Allergies Allergy (Verified 12/19/24 09:45) Medications ?Medication ?Instructions ?Recorded ?Confirmed ?Type ascorbic acid (vitamin C) 500 mg 500 mg PO DAILY 08/0112/19/24 History tablet (C-500) cholecalciferol (vitamin D3) 25 25 mcg PO DAILY 12/19/24 History mcg (1,000 unit) capsule (Vitamin D3) lidocaine-prilocaine 2.5 %-2.5 % 1 applic topical ONCE PRN port 09/26/24 12/19/24 Rx topical cream access 30 days #30 grams ondansetron 8 mg disintegrating 8 mg PO Q8H PRN nausea and 09/26/24 12/19/24 Rx tablet vomiting #30 tabs prochlorperazine maleate 10 mg 10 mg PO Q6H PRN nausea and 09/26/24 12/19/24 Rx tablet vomiting #30 tabs dexamethasone 4 mg tablet 8 mg (2 x 4 mg) PO .COMPLEX #14 11/07/24 12/19/24 Rx tabs omeprazole magnesium 20 mg 20 mg PO BID 11/21/2412/19 History capsule,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)) Have you fallen in the past year?: No Central Venous Access Central Venous Access: Yes Port/PICC: Port Laboratory Tests 12/19/24 08:44 WBC 10.7 Hgb 11.8 L Hct 35.1 L Plt Count 162 Absolute Neuts (auto) 7.9 H Sodium 141 Potassium 4.2 Chloride 106 Carbon Dioxide 23.5 BUN 8 Creatinine 0.52 L Glucose 98 Calcium 9.5 Magnesium 2.2 Total Bilirubin 0.28 AST 113 H ALT 179 H Alkaline Phosphatase 120 H Exam Physical Exam Narrative ECOG 0-1 Const alert, oriented x3 and no apparent distress General Appearance: comfortable HEENT normocephalic Face and Sinus: normal facial exam Mouth: oral and palatal mucosa normal Eyes General Eye: normal appearance of both eyes Neck no lymphadenopathy and no JVD Chest Chest: vascular access Resp clear to auscultation bilaterally Cardio regular rate and regular rhythm GI soft to palpation, non-tender and non-distended; Negative for hepatosplenomegaly Back/Spine no thoracic nor lumbar tenderness Extremity no clubbing, cyanosis or edema Skin no rashes or lesions noted Neuro CN's II-XII intact bilaterally, moves all extremities and no focal motor deficits Speech: speech normal Psych mental status grossly normal Coding Level of Care Code Off vis,est,level 4 Exam Problem Focused Diagnoses Malignant neoplasm of left breast in female, estrogen receptor positive, unspecified site of breast C50.912; Z17.0 Breast location: unspecified site of breast Estrogen receptor status: positive Patient sex: female Laterality: left Regional lymph node metastasis present C77.9 Iron deficiency anemia due to chronic blood loss D50.0 Transaminitis R74.01 Encounter for chemotherapy management Z51.11 Assessment and Plan Assessment and Plan (1) Breast cancer: Status: Acute Qualifiers: Breast location: unspecified site of breast Estrogen receptor status: positive Patient sex: female Laterality: left Qualified Code(s): C50.912 - Malignant neoplasm of unspecified site of left female breast; Z17.0 - Estrogen receptor positive status [ER+] Comment: ER VA positive, diagnosed Jun 2024 (2) Regional lymph node metastasis present: Status: Acute (3) Iron deficiency anemia due to chronic blood loss: Status: Chronic (4) Transaminitis: Status: Acute (5) Encounter for chemotherapy management: Status: Acute Orders: Orders Abdomen Limited Today C50.912 - Malignant neoplasm of unspecified site of left female breast, R74.01 - Elevation of levels of liver transaminase levels, Z17.0 - Estrogen receptor positive status [ER+] Medications: Discontinued pegfilgrastim-cbqv (Udenyca) Discontinued Reason: Pt no longer taking (0.6 mL) 6 mg subcutaneously Q14d; 0.6 mL 7RF Plan 48-year-old female, premenopausal at diagnosis with invasive ductal cancer of the left breast high risk pathologic stage IIIA (T2, N2, M0) with metastatic cancer confirmed in all 4 sentinel lymph nodes. Cancer is ER positive (over 95% moderate), VA positive (over 95%, strong) HER2 2+ by immunohistochemistry, not amplified by FISH, Ki-67 positive low about 10%). Overall grade 2 Patient underwent lumpectomy with sentinel lymph node biopsy August 2024, reexcision of margin September 2024 and started systemic adjuvant chemotherapy October 2024 starting with dose dense Adriamycin and Cytoxan which she tolerated with no grade 3 or 4 toxicities. Chronic comorbid conditions: Chronic iron deficiency anemia from menstrual loss. Recommendations: Based on NCCN guidelines and up-to-date review of treatment of early-stage breast cancer with intent to cure options are: 1-start the second phase of systemic adjuvant chemotherapy with 4 cycles of Taxol at a dose dense schedule supported with growth factor December 04, 2024. Hold cycle 2 dose dense Taxol today due to transaminitis. consider changing to 21 day Taxol administration. 2. Adjuvant radiation therapy to the axilla to follow systemic chemotherapy. 3. Adjuvant hormonal therapy following radiation with an aromatase inhibitor, LHRH agonist ovarian suppression (until she undergoes planned oophorectomy tentatively planned for February 04, 2025 under the care of Dr. Eddie Pereira) and 2 years of abemaciclib for high risk breast cancer. 4. Iron deficiency anemia chronic menstrual blood loss, she took oral iron for a while then she stopped due to GI side effects. Her anemia and iron profile has improved. Will recheck her iron profile after the end of systemic chemotherapy. 5. Transaminitis?AST/ALT today greater than 3 times upper limit of normal. Delay cycle 2 dose dense Taxol. Request ultrasound abd Clinical Quality Measures Falls Risk Screening/Assistive Devices Have you fallen in the past year?: No 12/19/24 1043 <Electronically signed by Alyssa peña NP, NP-C> Date _ Alyssa HUMPHRIES Cosigner Signature: Date (if applicable) CC: ~ [facility] Work Phone: 1(381) 751-601107-02-2025 Evaluation note* Diagnosis Onset Date Resolution Status Admit Date Breast cancer chronic December 04 8:15am Iron deficiency anemia due t o chronic blood loss chronic December 04 8:15am Regional lymph node metastas is present December 04, 2024 8 :15am Ovarian cyst acute December 13 2:20pm Encounter for chemotherapy management acute December 19, 2024 8:44am Transaminitis acute December 19, 2024 8:44am Breast cancer chronic December 19, 2024 8:44am Iron deficiency anemia due t o chronic blood loss chronic December 19 8:44am 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 December 19, 2024 8:44am Encounter for chemotherapy management acute December 26, 2024 7:33am Transaminitis acute December 26, 2024 7:33am Breast cancer chronic December 26, 2024 7:33am Iron deficiency anemia due t o chronic blood loss chronic December 26 7:33am 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 December 26, 2024 7:33am Encounter for chemotherapy management acute January 02, 2025 8:27am Transaminitis acute January 02, 2025 8:27am Breast cancer chronic January 02, 2025 8:27am Iron deficiency anemia due t o chronic blood loss chronic January 02 8:27am 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 January 02, 2025 8:27am Breast cancer chronic January 8:13am Iron deficiency anemia due t o chronic blood loss chronic January 16, 2025 8:13am 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 January 16 8:13am Encounter for chemotherapy management acute January 30 9:14am Breast cancer chronic January 9:14am Iron deficiency anemia due t o chronic blood loss chronic January 30, 2025 9:14am 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 January 30 9:14am Breast cancer, left breast acute February 20, 2025 12:27pm Breast cancer chronic February 032024 1:53pm Iron deficiency anemia due t o chronic blood loss chronic February 1:53pm 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 February 20, 2025 1:53pm Breast cancer, left breast acute March 05, 2025 9:23am Breast cancer, left breast acute March 12, 2025 9:11am Breast cancer, left breast acute March 19, 2025 9:17am Breast cancer, left breast acute March 26, 2025 9:19am [facility] Work Phone: [phone]) 883-321506-19-2025 Evaluation note* Diagnosis Onset Date Resolution Status Admit Date Encounter for chemotherapy management acute November 21, 2024 8:41am Breast cancer chronic November 21, 2024 8:41am Breast cancer chronic December 04 8:15am Iron deficiency anemia due t o chronic blood loss chronic December 04 8:15am 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 December 04, 2024 8 :15am Ovarian cyst acute December 13 2:20pm Encounter for chemotherapy management acute December 19, 2024 8:44am Transaminitis acute December 19, 2024 8:44am Breast cancer chronic December 19, 2024 8:44am Iron deficiency anemia due t o chronic blood loss chronic December 19 8:44am 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 December 19, 2024 8:44am Encounter for chemotherapy management acute December 26, 2024 7:33am Transaminitis acute December 26, 2024 7:33am Breast cancer chronic December 26, 2024 7:33am Iron deficiency anemia due t o chronic blood loss chronic December 26 7:33am 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 December 26, 2024 7:33am Encounter for chemotherapy management acute January 02, 2025 8:27am Transaminitis acute January 02, 2025 8:27am Breast cancer chronic January 02, 2025 8:27am Iron deficiency anemia due t o chronic blood loss chronic January 02 8:27am 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 January 02, 2025 8:27am Breast cancer chronic January 8:13am Iron deficiency anemia due t o chronic blood loss chronic January 16, 2025 8:13am 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 January 16 8:13am Encounter for chemotherapy management acute January 30 9:14am Breast cancer chronic January 9:14am Iron deficiency anemia due t o chronic blood loss chronic January 30, 2025 9:14am 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 January 30 9:14am Breast cancer, left breast acute February 20, 2025 12:27pm Breast cancer chronic February 032024 1:53pm Iron deficiency anemia due t o chronic blood loss chronic February 1:53pm 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 February 20, 2025 1:53pm Breast cancer, left breast acute March 05, 2025 9:23am [facility] Work Phone: 1(976) 975-829706-19-[address] [facility] [address] [place] [address] [place] [address] OFFICE VISIT Date of Service: 11/21/2420 MR#: [id number] Acct: [id number] Name: SUSAN LIN Rep #: [id number] : 1975 From: Alyssa Garcia ch DIRECTOR PHARMACEUTICAL DIRECTOR PHARMACEUTICAL-C Age/Sex: 48/F [place] [facility] Status: Signed HPI Subjective Date of Service 11/21/24 Chief Complaint Breast cancer on treatment History of Present Illness 48-year-old female who never had screening mammography and presented in June 2024 after a self palpated painless left breast mass. June 10, 2024 left breast ultrasound: Category 5, solid lesion at 12 o'clock position measuring 19 mm in maximum diameter in addition to an abnormal appearing left axillary lymph June 13, 2024 MICROSCOPIC DIAGNOSIS A. Left breast mass, core biopsy: Invasive ductal carcinoma. Ductal carcinoma in situ. See cancer summary in the comment section. B. Left axillary lymph node, core biopsy: Metastatic carcinoma, consistent with breast primary. ER: positive (>95, moderate intensity) VA: positive (>95, strong intensity) Her2: equivocal (2+) Ki67: positive, low, ~10% [id number]: [facility] lab not amplified. June 24, 2024 breast MRI: IMPRESSION: Enhancing mass at the 2:00 to 3:00 position of the left breast corresponding to the ultrasonographic abnormality representing the index lesion. No other abnormality identified. August 13, 2024 lumpectomy with sentinel lymph node biopsy: MICROSCOPIC DIAGNOSIS A: LEFT BREAST, NEEDLE-LOCALIZED LUMPECTOMY: - Invasive ductal carcinoma NST, Grade 2, surgical margins negative, pT2 pN2a. - DCIS, extensive, intermediate grade with focal necrosis, involving the anterior surgical margin. - See Comment for Synoptic Report. B: SENTINEL LYMPH NODE #1, EXCISION: - Positive for metastasis (14 mm) (06/05). C: SENTINEL LYMPH NODE #2, EXCISION: - Positive for metastasis (/). D: LEFT AXILLARY CONTENTS, EXCISION: - Two lymph nodes positive for metastasis (2/2). E: NEW ANTERIOR MARGINS, EXCISION: - Negative for invasive carcinoma. - Additional IHC to rule out DCIS are PENDING (to be reported in an addendum). SYNOPTIC REPORT FOR INVASIVE BREAST CARCINOMA Specimen (P=partial, M=mastectomy): P Laterality (R=right, L=left): L Focality (U=unifocal, M=multifocal): U Tumor size (cm): 2.2 x 1.5 x 1.4 cm Histologic type: invasive ductal carcinoma Histologic grade: 2 Tubule score (1-3): 3 Nuclear score (1-3): 2 Mitotic score (1-3): 1 Skin (I=involved, N=negative, NA=not applicable): N Lymphovascular invasion (E=extensive, F=focal, N=not identified): assessment PENDING IHC (to be reported in an addendum). Margins of main specimen (P=positive, N=negative): N Distance to closest margin of main specimen (mm): 0.5 mm Designation of closest margin of main specimen: posterior Designation of other margins of main specimen Re-resection margin status (P=positive, N=negative, NA=not applicable): N DCIS (P=present, N=not identified): P Nuclear grade: 2 Comedo necrosis (P=present, N=not identified): P Extensive intraductal component (P=present, N=not identified): P Margins of main specimen (P=positive, N=negative): P Distance to closest margin of main specimen (mm): 0 mm Designation of closest margin of main specimen: anterior Designation of other margins of main specimen Longest span Re-resection margin status (P=positive, N=negative, NA=not applicable): N Regional lymph nodes: Total number of lymph nodes: 4 Number of sentinel lymph nodes: 2 Number with macrometastases: 4 Number with micrometastases: NA Number with isolated tumor cells: NA Size of largest cole metastasis (mm): 14 mm Size of extranodal extension (mm) (N=not identified): N Estrogen receptor: positive (95%, strong intensity) Progesterone receptor: positive (90%, intermediate intensity) HER2 IHC: equivocal (2+) HER2 FISH: PENDING (at [facility]) Specimen in which ER/VA/HER2 performed: [id number] A pTNM: pT2 pN2a ADDENDUM This addendum is to report the results of the IHC for ERG (blocks A9, A10) performed at [facility]: No definitive lymphovascular invasion is identified with the ERG IHC. ADDENDUM This addendum is to report the findings of the additional CK5/6 IHCs performed on blocks A8, E3, E5, E7: A8) A focus of DCIS closely approaches the LATERAL surgical margin of the lumpectomy. E3,5,7) Multiple foci of usual ductal hyperplasia (UDH) are demonstrated. No DCIS is observed in these sections of the new anterior margin Genetic test (Delfina) July 2024 no known pathogenic or likely pathogenic variant detected. September 27, 2019 five 2D echocardiogram Interpretation summary Normal left ventricle. The global longitudinal strain equals -18.4% (normal). The left ventricular ejection fraction is 60%. Structurally normal valves. October 01, 2024 PET/CT Tumor Base -Thigh Init IMPRESSION: 1. Peripheral hypermetabolic uptake along the left breast mass, greatest along the left lower and upper aspects. Recommend correlation with recent lumpectomy surgical margins and consideration of increased reexcision field. 2. Hypermetabolic uptake involving the left level I axillary nodes. No hypermetabolic level II or III nodes visualized on PET-CT examination. 3. Mild asymmetric hypermetabolic activity of the left breast parenchyma compared to the right, which may be due to inflammation from recent surgical excision. 4. Ovarian cystic lesion within the lower pelvis without hypermetabolic activityand most compatiblewith ovarian cyst, however this is incompletely characterized by noncontrast examination. Pelvic ultrasound is recommended forfurther evaluation. Treatment summary and response: Lumpectomy with sentinel lymph node biopsy August 13, 2024. Margin reexcision September 11, 2024 Adjuvant adriamycin/cyclophosphamide October 10, 2024 Interval History The patient is presenting to clinic accompanied by spouse for an evaluation anticipating she will begin cycle 4 AC. Extended PO dexamethasone to day 4 with cycle 2, nausea improved. Primary concern is dyspepsia and heartburn. Taking omeprazole and using Tums as needed with minimal relief. Taking PO iron with vit C daily. GI upset improved if she takes iron with food. LBM 11/20/24. Using senna/colace daily. LMP 11/01/24. Specifically denies fever/chills, sweats, dizziness, CP, palpitations, cough, SOB, abd pain, swelling of her extremities. [facility] Medical History Encounter for chemotherapy management Well woman exam Ovarian cyst Encounter for education Wears glasses Low iron Restless leg syndrome History of migraine Non-smoker Iron deficiency anemia due to chronic blood loss Breast cancer Abnormal mammogram of left breast Surgical History Status post left breast lumpectomy History of Family History Mother CVA (cerebral vascular accident) Social History Smoking Status: Never smoker alcohol intake: never substance use type: does not use ROS ROS Narrative Negative except as documented in the interval HPI Intake Vital Signs 10/10/24 09:32 11/21/24 09:20 Height 5 ft 9 in 5 ft 9 in Weight: 157 lb BMI 23.1 BP 121/74 H Blood Pressure Location Lt brachial Position Sitting Respiration 16 Pulse 63 Pulse Source Monitor Temp 98.2 F Temperature Source Temporal Artery Pulse Oximetry (%) 100 Oxygen Delivery Method room air Intake Employee Representative Required: No Accompanied by: Is patient in pain?: No Allergies No Known Allergies Allergy (Verified 11/21/24 09:25) Medications ?Medication ?Instructions ?Recorded ?Confirmed ?Type ferrous fumarate 325 mg (106 mg 325 mg PO QDAY 07/09/ 5 11/21/24 History iron) tablet ascorbic acid (vitamin C) 500 mg 500 mg PO DAILY 08/0111/21/24 History tablet (C-500) cholecalciferol (vitamin D3) 25 25 mcg PO DAILY 11/21/24 History mcg (1,000 unit) capsule (Vitamin D3) lidocaine-prilocaine 2.5 %-2.5 % 1 applic topical ONCE PRN port 09/26/24 11/21/24 Rx topical cream access 30 days #30 grams ondansetron 8 mg disintegrating 8 mg PO Q8H PRN nausea and 09/26/24 11/21/24 Rx tablet vomiting #30 tabs prochlorperazine maleate 10 mg 10 mg PO Q6H PRN nausea and 09/26/24 11/21/24 Rx tablet vomiting #30 tabs pegfilgrastim-cbqv 6 mg/0.6 mL 6 mg (0.6 mL) subcut .C OMPLEX #0.6 10/21/24 11/21/24 Rx subcutaneous syringe (Udenyca) mL dexamethasone 4 mg tablet 8 mg (2 x 4 mg) PO .COMPLEX #14 11/07/24 11/21/24 Rx tabs omeprazole magnesium 20 mg 20 mg PO BID 11/21/2411/21 History capsule,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)) Central Venous Access Central Venous Access: Yes Port/PICC: Port (right chest) Laboratory Tests 11/21/24 08:57 WBC 7.0 Hgb 12.0 Hct 35.7 L Plt Count 167 Sodium 141 Potassium 4.3 Chloride 105 Carbon Dioxide 25.3 BUN 10 Creatinine 0.60 L Glucose 110 H Calcium 9.3 Total Bilirubin 0.18 AST 29 ALT 24 Alkaline Phosphatase 78 Albumin 4.1 Exam Physical Exam Narrative ECOG 0 Const alert, oriented x3 and no apparent distress General Appearance: comfortable HEENT normocephalic Head and Scalp: other Other Details: alopecia Mouth: No lesions and No thrush Eyes General Eye: normal appearance of both eyes Neck no lymphadenopathy and no JVD Chest Chest: vascular access Resp normal respiratory effort and clear to auscultation bilaterally Cardio regular rate, regular rhythm, S1 normal heart sound and S2 normal heart sound GI normal to inspection, nondistended, normoactive bowel sounds and non-tender Back/Spine no CVA tenderness and no thoracic nor lumbar tenderness Extremity no clubbing, cyanosis or edema Skin no rashes or lesions noted Neuro oriented x3 and CN's II-XII intact bilaterally Gait (Neuro): normal gait Psych mental status grossly normal Attitude: calm and engaged Coding Level of Care Code Off vis,est,level 4 Exam Problem Focused Diagnoses Malignant neoplasm of left breast in female, estrogen receptor positive, unspecified site of eqjbanS95.912; Z17.0 Breast location: unspecified site of breast Estrogen receptor status: positive Patient sex: female Laterality: left Encounter for chemotherapy management Z51.11 Assessment and Plan Assessment and Plan (1) Breast cancer: Status: Acute Qualifiers: Breast location: unspecified site of breast Estrogen receptor status: positive Patient sex: female Laterality: left Qualified Code(s): C50.912 - Malignant neoplasm of unspecified site of left female breast; Z17.0 - Estrogen receptor positive status [ER+] Comment: ER VA positive, diagnosed Jun 2024 (2) Encounter for chemotherapy management: Status: Acute Orders: Orders Ferritin 2 Weeks D50.0 - Iron deficiency anemia secondary to blood loss (chronic) Iron+Iron Binding Capacity 2 Weeks D50.0 - Iron deficiency anemia secondary to blood loss (chronic) Plan 48-year-old female, premenopausal at diagnosis with invasive ductal cancer of the left breast high risk pathologic stage IIIA (T2, N2, M0) with metastatic cancer confirmed in all 4 sentinel lymph nodes. Cancer is ER positive (over 95% moderate), VA positive (over 95%, strong) HER2 2+ by immunohistochemistry, not amplified by FISH, Ki-67 positive low about 10%). Overall grade 2 Reexcision of a close margin September 11, 2024. Chronic comorbid conditions: Chronic iron deficiency anemia from menstrual loss. Recommendations: Based on NCCN guidelines and up-to-date review of treatment of early-stage breast cancer with intent to cure options are: 1-continue systemic adjuvant chemotherapy with 4 cycles dose dense AC (Adriamycin plus Cytoxan) followed by 4 cycles dose dense T (paclitaxel) with supportive treatment that includes antiemetics and primary prophylaxis with growth factor. Labs reviewed with the patient. CBC values are acceptable parameters are treatment. She is not endorse any signs or symptoms of toxicity contraindicating chemotherapy will proceed with cycle 4 AC. Patient will be supported with G-CSF day 2 2. Adjuvant radiation therapy to the axilla to follow systemic chemotherapy. 3. Adjuvant hormonal therapy following radiation with an aromatase inhibitor, LHRH agonist ovarian suppression (until she undergoes planned oophorectomy) and 2 years of abemaciclib for high risk breast cancer. 4. Ovarian cyst- described as complex, reported on PET/CT 10/01/24, Pelvic US performed 10/09/24 reports presence of left ovarian cyst with echogenic foci. She will meet with sail repairer, [facility] on 12/13/24. 5. Iron deficiency anemia chronic menstrual blood loss thus, continue oral iron supplement 1 tabletdaily at least 6 months. However, Hemoglobin 12 today and she is experiencing GI upset, questionably exacerbated by PO iron. Advised to hold PO iron x 1 week and assess for improvement. RTO on 12/04/24 to begin adjuvant dd Taxol (1 day early to account for holiday) 11/21/24 1012 h DIRECTOR PHARMACEUTICAL DIRECTOR PHARMACEUTICAL-C> Date _ Alyssa Gillespie NP DIRECTOR PHARMACEUTICAL-C Cosigner Signature: Date (if applicable) CC: ~ [facility]06-19-2025 Progress note Author Alyssa Gillespie [facility] Note Date/Time November 21, 2024 10:1 2am [facility] [address] [address] OFFICE VISIT Date of Service: 11/21/24919 MR#: [id number] Acct: [id number] Name: SUSAN LIN Rep #: [id number] : 1975 From: Alyssa Garcia ch DIRECTOR PHARMACEUTICAL DIRECTOR PHARMACEUTICAL-C Age/Sex: 48/F [place] [facility] Status: Signed HPI Subjective Date of Service 11/21/24 Chief Complaint Breast cancer on treatment History of Present Illness 48-year-old female who never had screening mammography and presented in June 2024 after a self palpated painless left breast mass. June 10, 2024 left breast ultrasound: Category 5, solid lesion at 12 o'clock position measuring 19 mm in maximum diameter in addition to an abnormal appearing left axillary lymph June 13, 2024 MICROSCOPIC DIAGNOSIS A. Left breast mass, core biopsy: Invasive ductal carcinoma. Ductal carcinoma in situ. See cancer summary in the comment section. B. Left axillary lymph node, core biopsy: Metastatic carcinoma, consistent with breast primary. ER: positive (>95, moderate intensity) VA: positive (>95, strong intensity) Her2: equivocal (2+) Ki67: positive, low, ~10% [id number]: [facility] lab not amplified. June 24, 2024 breast MRI: IMPRESSION: Enhancing mass at the 2:00 to 3:00 position of the left breast corresponding to the ultrasonographic abnormality representing the index lesion. No other abnormality identified. August 13, 2024 lumpectomy with sentinel lymph node biopsy: MICROSCOPIC DIAGNOSIS A: LEFT BREAST, NEEDLE-LOCALIZED LUMPECTOMY: - Invasive ductal carcinoma NST, Grade 2, surgical margins negative, pT2 pN2a. - DCIS, extensive, intermediate grade with focal necrosis, involving the anterior surgical margin. - See Comment for Synoptic Report. B: SENTINEL LYMPH NODE #1, EXCISION: - Positive for metastasis (14 mm) (/). C: SENTINEL LYMPH NODE #2, EXCISION: - Positive for metastasis (1/). D: LEFT AXILLARY CONTENTS, EXCISION: - Two lymph nodes positive for metastasis (2/2). E: NEW ANTERIOR MARGINS, EXCISION: - Negative for invasive carcinoma. - Additional IHC to rule out DCIS are PENDING (to be reported in an addendum). SYNOPTIC REPORT FOR INVASIVE BREAST CARCINOMA Specimen (P=partial, M=mastectomy): P Laterality (R=right, L=left): L Focality (U=unifocal, M=multifocal): U Tumor size (cm): 2.2 x 1.5 x 1.4 cm Histologic type: invasive ductal carcinoma Histologic grade: 2 Tubule score (1-3): 3 Nuclear score (1-3): 2 Mitotic score (1-3): 1 Skin (I=involved, N=negative, NA=not applicable): N Lymphovascular invasion (E=extensive, F=focal, N=not identified): assessment PENDING IHC (to be reported in an addendum). Margins of main specimen (P=positive, N=negative): N Distance to closest margin of main specimen (mm): 0.5 mm Designation of closest margin of main specimen: posterior Designation of other margins of main specimen </=1 mm: NA Re-resection margin status (P=positive, N=negative, NA=not applicable): N DCIS (P=present, N=not identified): P Nuclear grade: 2 Comedo necrosis (P=present, N=not identified): P Extensive intraductal component (P=present, N=not identified): P Margins of main specimen (P=positive, N=negative): P Distance to closest margin of main specimen (mm): 0 mm Designation of closest margin of main specimen: anterior Designation of other margins of main specimen </=2 mm: posterior Longest span </= 2 mm to margin of main specimen (mm): 2.5 mm Re-resection margin status (P=positive, N=negative, NA=not applicable): N Regional lymph nodes: Total number of lymph nodes: 4 Number of sentinel lymph nodes: 2 Number with macrometastases: 4 Number with micrometastases: NA Number with isolated tumor cells: NA Size of largest cole metastasis (mm): 14 mm Size of extranodal extension (mm) (N=not identified): N Estrogen receptor: positive (95%, strong intensity) Progesterone receptor: positive (90%, intermediate intensity) HER2 IHC: equivocal (2+) HER2 FISH: PENDING (at [facility]) Specimen in which ER/VA/HER2 performed: [id number] A pTNM: pT2 pN2a ADDENDUM This addendum is to report the results of the IHC for ERG (blocks A9, A10) performed at [facility]: No definitive lymphovascular invasion is identified with the ERG IHC. ADDENDUM This addendum is to report the findings of the additional CK5/6 IHCs performed on blocks A8, E3, E5, E7: A8) A focus of DCIS closely approaches the LATERAL surgical margin of the lumpectomy. E3,5,7) Multiple foci of usual ductal hyperplasia (UDH) are demonstrated. No DCIS is observed in these sections of the new anterior margin Genetic test (Delfina) July 2024 no known pathogenic or likely pathogenic variant detected. September 27, 2019 five 2D echocardiogram Interpretation summary Normal left ventricle. The global longitudinal strain equals -18.4% (normal). The left ventricular ejection fraction is 60%. Structurally normal valves. October 01, 2024 PET/CT Tumor Base -Thigh Init IMPRESSION: 1. Peripheral hypermetabolic uptake along the left breast mass, greatest along the left lower and upper aspects. Recommend correlation with recent lumpectomy surgical margins and consideration of increased reexcision field. 2. Hypermetabolic uptake involving the left level I axillary nodes. No hypermetabolic level II or III nodes visualized on PET-CT examination. 3. Mild asymmetric hypermetabolic activity of the left breast parenchyma compared to the right, which may be due to inflammation from recent surgical excision. 4. Ovarian cystic lesion within the lower pelvis without hypermetabolic activityand most compatible with ovarian cyst, however this is incompletely characterized by noncontrast examination. Pelvic ultrasound is recommended for further evaluation. Treatment summary and response: Lumpectomy with sentinel lymph node biopsy August 13, 2024. Margin reexcision September 11, 2024 Adjuvant adriamycin/cyclophosphamide October 10, 2024 Interval History The patient is presenting to clinic accompanied by spouse for an evaluation anticipating she will begin cycle 4 AC. Extended PO dexamethasone to day 4 with cycle 2, nausea improved. Primary concern is dyspepsia and heartburn. Taking omeprazole and using Tums as needed with minimal relief. Taking PO iron with vit C daily. GI upset improved if she takes iron with food. LBM 11/20/24. Using senna/colace daily. LMP 11/01/24. Specifically denies fever/chills, sweats, dizziness, CP, palpitations, cough, SOB, abd pain, swelling of her extremities. [facility] Medical History Encounter for chemotherapy management Well woman exam Ovarian cyst Encounter for education Wears glasses Low iron Restless leg syndrome History of migraine Non-smoker Iron deficiency anemia due to chronic blood loss Breast cancer Abnormal mammogram of left breast Surgical History Status post left breast lumpectomy History of Family History Mother CVA (cerebral vascular accident) Social History Smoking Status: Never smoker alcohol intake: never substance use type: does not use ROS ROS Narrative Negative except as documented in the interval HPI Intake Vital Signs 10/10/24 09:32 11/21/24 09:20 Height 5 ft 9 in 5 ft 9 in Weight: 157 lb BMI 23.1 BP 121/74 H Blood Pressure Location Lt brachial Position Sitting Respiration 16 Pulse 63 Pulse Source Monitor Temp 98.2 F Temperature Source Temporal Artery Pulse Oximetry (%) 100 Oxygen Delivery Method room air Intake Employee Representative Required: No Accompanied by: Is patient in pain?: No Allergies No Known Allergies Allergy (Verified 11/21/24 09:25) Medications ?Medication ?Instructions ?Recorded ?Confirmed ?Type ferrous fumarate 325 mg (106 mg 325 mg PO QDAY 5 11/21/24 History iron) tablet ascorbic acid (vitamin C) 500 mg 500 mg PO DAILY 08/0111/21/24 History tablet (C-500) cholecalciferol (vitamin D3) 25 25 mcg PO DAILY 11/21/24 History mcg (1,000 unit) capsule (Vitamin D3) lidocaine-prilocaine 2.5 %-2.5 % 1 applic topical ONCE PRN port 09/26/24 11/21/24 Rx topical cream access 30 days #30 grams ondansetron 8 mg disintegrating 8 mg PO Q8H PRN nausea and 09/26/24 11/21/24 Rx tablet vomiting #30 tabs prochlorperazine maleate 10 mg 10 mg PO Q6H PRN nausea and 09/26/24 11/21/24 Rx tablet vomiting #30 tabs pegfilgrastim-cbqv 6 mg/0.6 mL 6 mg (0.6 mL) subcut .C OMPLEX #0.6 10/21/24 11/21/24 Rx subcutaneous syringe (Udenyca) mL dexamethasone 4 mg tablet 8 mg (2 x 4 mg) PO .COMPLEX #14 11/07/24 11/21/24 Rx tabs omeprazole magnesium 20 mg 20 mg PO BID 06/19/25 06/19 /25 History capsule,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)) Central Venous Access Central Venous Access: Yes Port/PICC: Port (right chest) Laboratory Tests 11/21/24 08:57 WBC 7.0 Hgb 12.0 Hct 35.7 L Plt Count 167 Sodium 141 Potassium 4.3 Chloride 105 Carbon Dioxide 25.3 BUN 10 Creatinine 0.60 L Glucose 110 H Calcium 9.3 Total Bilirubin 0.18 AST 29 ALT 24 Alkaline Phosphatase 78 Albumin 4.1 Exam Physical Exam Narrative ECOG 0 Const alert, oriented x3 and no apparent distress General Appearance: comfortable HEENT normocephalic Head and Scalp: other Other Details: alopecia Mouth: No lesions and No thrush Eyes General Eye: normal appearance of both eyes Neck no lymphadenopathy and no JVD Chest Chest: vascular access Resp normal respiratory effort and clear to auscultation bilaterally Cardio regular rate, regular rhythm, S1 normal heart sound and S2 normal heart sound GI normal to inspection, nondistended, normoactive bowel sounds and non-tender Back/Spine no CVA tenderness and no thoracic nor lumbar tenderness Extremity no clubbing, cyanosis or edema Skin no rashes or lesions noted Neuro oriented x3 and CN's II-XII intact bilaterally Gait (Neuro): normal gait Psych mental status grossly normal Attitude: calm and engaged Coding Level of Care Code Off vis,est,level 4 Exam Problem Focused Diagnoses Malignant neoplasm of left breast in female, estrogen receptor positive, unspecified site of breast C50.912; Z17.0 Breast location: unspecified site of breast Estrogen receptor status: positive Patient sex: female Laterality: left Encounter for chemotherapy management Z51.11 Assessment and Plan Assessment and Plan (1) Breast cancer: Status: Acute Qualifiers: Breast location: unspecified site of breast Estrogen receptor status: positive Patient sex: female Laterality: left Qualified Code(s): C50.912 - Malignant neoplasm of unspecified site of left female breast; Z17.0 - Estrogen receptor positive status [ER+] Comment: ER VA positive, diagnosed Jun 2024 (2) Encounter for chemotherapy management: Status: Acute Orders: Orders Ferritin 2 Weeks D50.0 - Iron deficiency anemia secondary to blood loss (chronic) Iron+Iron Binding Capacity 2 Weeks D50.0 - Iron deficiency anemia secondary to blood loss (chronic) Plan 48-year-old female, premenopausal at diagnosis with invasive ductal cancer of the left breast high risk pathologic stage IIIA (T2, N2, M0) with metastatic cancer confirmed in all 4 sentinel lymph nodes. Cancer is ER positive (over 95% moderate), VA positive (over 95%, strong) HER2 2+ by immunohistochemistry, not amplified by FISH, Ki-67 positive low about 10%). Overall grade 2 Reexcision of a close margin September 11, 2024. Chronic comorbid conditions: Chronic iron deficiency anemia from menstrual loss. Recommendations: Based on NCCN guidelines and up-to-date review of treatment of early-stage breast cancer with intent to cure options are: 1-continue systemic adjuvant chemotherapy with 4 cycles dose dense AC (Adriamycin plus Cytoxan) followed by 4 cycles dose dense T (paclitaxel) with supportive treatment that includes antiemetics and primary prophylaxis with growth factor. Labs reviewed with the patient. CBC values are acceptable parameters are treatment. She is not endorse any signs or symptoms of toxicity contraindicating chemotherapy will proceed with cycle 4 AC. Patient will be supported with G-CSF day 2 2. Adjuvant radiation therapy to the axilla to follow systemic chemotherapy. 3. Adjuvant hormonal therapy following radiation with an aromatase inhibitor, LHRH agonist ovarian suppression (until she undergoes planned oophorectomy) and 2 years of abemaciclib for high risk breast cancer. 4. Ovarian cyst- described as complex, reported on PET/CT 10/01/24, Pelvic US performed 10/09/24 reports presence of left ovarian cyst with echogenic foci. She will meet with sail repairer, [facility] on 12/13/24. 5. Iron deficiency anemia chronic menstrual blood loss thus, continue oral iron supplement 1 tablet daily at least 6 months. However, Hemoglobin 12 today and she is experiencing GI upset, questionably exacerbated by PO iron. Advised to hold PO iron x 1 week and assess for improvement. RTO on 12/04/24 to begin adjuvant dd Taxol (1 day early to account for holiday) 11/21/24 1012 <Electronically signed by Alyssa peña NP DIRECTOR PHARMACEUTICAL-C> Date _ Alyssa VILLAVICENCIOC Cosigner Signature: Date (if applicable) CC: ~ [facility] Work Phone: 1(742) 973-526206-05-2025 Evaluation note* Diagnosis Onset Date Resolution Status Admit Date Encounter for chemotherapy management acute November 07, 2024 8 :53am Breast cancer chronic November 07 8:53am Encounter for chemotherapy management acute November 21, 2024 8:41am Breast cancer chronic November 21, 2024 8:41am Breast cancer chronic December 04 8:15am Iron deficiency anemia due t o chronic blood loss chronic December 04 8:15am 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 December 04, 2024 8 :15am Ovarian cyst acute December 13 2:20pm Encounter for chemotherapy management acute December 19, 2024 8:44am Transaminitis acute December 19, 2024 8:44am Breast cancer chronic December 19, 2024 8:44am Iron deficiency anemia due t o chronic blood loss chronic December 19 8:44am 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 December 19, 2024 8:44am Encounter for chemotherapy management acute December 26, 2024 7:33am Transaminitis acute December 26, 2024 7:33am Breast cancer chronic December 26, 2024 7:33am Iron deficiency anemia due t o chronic blood loss chronic December 26 7:33am 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 December 26, 2024 7:33am Encounter for chemotherapy management acute January 02, 2025 8:27am Transaminitis acute January 02, 2025 8:27am Breast cancer chronic January 02, 2025 8:27am Iron deficiency anemia due t o chronic blood loss chronic January 02 8:27am 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 January 02, 2025 8:27am Breast cancer chronic January 8:13am Iron deficiency anemia due t o chronic blood loss chronic January 16, 2025 8:13am 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 January 16 8:13am Encounter for chemotherapy management acute January 30 9:14am Breast cancer chronic January 9:14am Iron deficiency anemia due t o chronic blood loss chronic January 30, 2025 9:14am 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 January 30 9:14am Breast cancer, left breast acute February 20, 2025 12:27pm Breast cancer chronic February 032024 1:53pm Iron deficiency anemia due t o chronic blood loss chronic February 1:53pm 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 February 20, 2025 1:53pm [facility] Work Phone: 1(649) 400-471506-05-2025 Evaluation note* Diagnosis Onset Date Resolution Status Admit Date Encounter for chemotherapy management acute November 07, 2024 8 :53am Breast cancer chronic November 07 8:53am Encounter for chemotherapy management acute November 21, 2024 8:41am Breast cancer chronic November 21, 2024 8:41am Breast cancer chronic December 04 8:15am Iron deficiency anemia due t o chronic blood loss chronic December 04 8:15am 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 December 04, 2024 8 :15am Ovarian cyst acute December 13 2:20pm Encounter for chemotherapy management acute December 19, 2024 8:44am Transaminitis acute December 19, 2024 8:44am Breast cancer chronic December 19, 2024 8:44am Iron deficiency anemia due t o chronic blood loss chronic December 19 8:44am 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 December 19, 2024 8:44am Encounter for chemotherapy management acute December 26, 2024 7:33am Transaminitis acute December 26, 2024 7:33am Breast cancer chronic December 26, 2024 7:33am Iron deficiency anemia due t o chronic blood loss chronic December 26 7:33am 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 December 26, 2024 7:33am Encounter for chemotherapy management acute January 02, 2025 8:27am Transaminitis acute January 02, 2025 8:27am Breast cancer chronic January 02, 2025 8:27am Iron deficiency anemia due t o chronic blood loss chronic January 02 8:27am 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 January 02, 2025 8:27am Breast cancer chronic January 8:13am Iron deficiency anemia due t o chronic blood loss chronic January 16, 2025 8:13am 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 January 16 8:13am Encounter for chemotherapy management acute January 30 9:14am Breast cancer chronic January 9:14am Iron deficiency anemia due t o chronic blood loss chronic January 30, 2025 9:14am 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 January 30 9:14am Breast cancer, left breast acute February 20, 2025 12:27pm Breast cancer chronic February 032024 1:53pm Iron deficiency anemia due t o chronic blood loss chronic February 1:53pm 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 February 20, 2025 1:53pm Breast cancer, left breast acute March 05, 2025 9:23am [facility] Work Phone: 1(106) 779-538205-22-2025 Evaluation note* Diagnosis Onset Date Resolution Status Admit Date Breast cancer acute October 24 8:49am Encounter for chemotherapy management acute October 24, 2024 8 :49am Breast cancer acute November 07 8:53am Encounter for chemotherapy management acute November 07, 2024 8 :53am Breast cancer acute November 21, 2024 8:41am Encounter for chemotherapy management acute November 21, 2024 8:41am Breast cancer acute December 04 8:15am Regional lymph node metastas is present acute December 04, 2024 8 :15am Iron deficiency anemia due t o chronic blood loss chronic December 04 8:15am Ovarian cyst acute December 13 2:20pm Breast cancer acute December 19, 2024 8:44am Encounter for chemotherapy management acute December 19, 2024 8:44am Regional lymph node metastas is present acute December 19, 2024 8:44am Transaminitis acute December 19, 2024 8:44am Iron deficiency anemia due t o chronic blood loss chronic December 19 8:44am Breast cancer acute December 26, 2024 7:33am Encounter for chemotherapy management acute December 26, 2024 7:33am Regional lymph node metastas is present acute December 26, 2024 7:33am Transaminitis acute December 26, 2024 7:33am Iron deficiency anemia due t o chronic blood loss chronic December 26 7:33am Breast cancer acute January 02, 2025 8:27am Encounter for chemotherapy management acute January 02, 2025 8:27am Regional lymph node metastas is present acute January 02, 2025 8:27am Transaminitis acute January 02, 2025 8:27am Iron deficiency anemia due t o chronic blood loss chronic January 02 8:27am Breast cancer acute January 8:13am Regional lymph node metastas is present acute January 16 8:13am Iron deficiency anemia due t o chronic blood loss chronic January 16, 2025 8:13am Breast cancer acute January 9:14am Encounter for chemotherapy management acute January 30 9:14am Regional lymph node metastas is present acute January 30 9:14am Iron deficiency anemia due t o chronic blood loss chronic January 30, 2025 9:14am [facility] Work Phone: 1(761) 425-346705-15-2025 [facility] [address] [place] [id number] OFFICE VISIT Date of Service: 10/17/24 0919 MR#: [id number] Acct: [id number] Name: SUSAN LIN Rep #: [id number] : 1975 From: Alyssa Garcia ch DIRECTOR PHARMACEUTICAL DIRECTOR PHARMACEUTICAL-C Age/Sex: 48/F [place] [facility] [place]: Signed HPI Subjective Date of Service 10/17/24 Chief Complaint Breast cancer on treatment History of Present Illness 48-year-old female who never had screening mammography and presented in June 2024 after a self palpated painless left breast mass. June 10, 2024 left breast ultrasound: Category 5, solid lesion at 12 o'clock position measuring 19 mm in maximum diameter in addition to an abnormal appearing left axillary lymph June 13, 2024 MICROSCOPIC DIAGNOSIS A. Left breast mass, core biopsy: Invasive ductal carcinoma. Ductal carcinoma in situ. See cancer summary in the comment section. B. Left axillary lymph node, core biopsy: Metastatic carcinoma, consistent with breast primary. ER: positive (>95, moderate intensity) VA: positive (>95, strong intensity) Her2: equivocal (2+) Ki67: positive, low, ~10% [id number]: [facility] lab not amplified. June 24, 2024 breast MRI: IMPRESSION: Enhancing mass at the 2:00 to 3:00 position of the left breast corresponding to the ultrasonographic abnormality representing the index lesion. No other abnormality identified. August 13, 2024 lumpectomy with sentinel lymph node biopsy: MICROSCOPIC DIAGNOSIS A: LEFT BREAST, NEEDLE-LOCALIZED LUMPECTOMY: - Invasive ductal carcinoma NST, Grade 2, surgical margins negative, pT2 pN2a. - DCIS, extensive, intermediate grade with focal necrosis, involving the anterior surgical margin. - See Comment for Synoptic Report. B: SENTINEL LYMPH NODE #1, EXCISION: - Positive for metastasis (14 mm) (06/05). C: SENTINEL LYMPH NODE #2, EXCISION: - Positive for metastasis (/). D: LEFT AXILLARY CONTENTS, EXCISION: - Two lymph nodes positive for metastasis (/). E: NEW ANTERIOR MARGINS, EXCISION: - Negative for invasive carcinoma. - Additional IHC to rule out DCIS are PENDING (to be reported in an addendum). SYNOPTIC REPORT FOR INVASIVE BREAST CARCINOMA Specimen (P=partial, M=mastectomy): P Laterality (R=right, L=left): L Focality (U=unifocal, M=multifocal): U Tumor size (cm): 2.2 x 1.5 x 1.4 cm Histologic type: invasive ductal carcinoma Histologic grade: 2 Tubule score (1-3): 3 Nuclear score (1-3): 2 Mitotic score (1-3): 1 Skin (I=involved, N=negative, NA=not applicable): N Lymphovascular invasion (E=extensive, F=focal, N=not identified): assessment PENDING IHC (to be reported in an addendum). Margins of main specimen (P=positive, N=negative): N Distance to closest margin of main specimen (mm): 0.5 mm Designation of closest margin of main specimen: posterior Designation of other margins of main specimen Re-resection margin status (P=positive, N=negative, NA=not applicable): N DCIS (P=present, N=not identified): P Nuclear grade: 2 Comedo necrosis (P=present, N=not identified): P Extensive intraductal component (P=present, N=not identified): P Margins of main specimen (P=positive, N=negative): P Distance to closest margin of main specimen (mm): 0 mm Designation of closest margin of main specimen: anterior Designation of other margins of main specimen Longest span Re-resection margin status (P=positive, N=negative, NA=not applicable): N Regional lymph nodes: Total number of lymph nodes: 4 Number of sentinel lymph nodes: 2 Number with macrometastases: 4 Number with micrometastases: NA Number with isolated tumor cells: NA Size of largest cole metastasis (mm): 14 mm Size of extranodal extension (mm) (N=not identified): N Estrogen receptor: positive (95%, strong intensity) Progesterone receptor: positive (90%, intermediate intensity) HER2 IHC: equivocal (2+) HER2 FISH: PENDING (at [facility]) Specimen in which ER/VA/HER2 performed: [id number] pTNM: pT2 pN2a ADDENDUM This addendum is to report the results of the IHC for ERG (blocks A9, A10) performed at [facility]: No definitive lymphovascular invasion is identified with the ERG IHC. ADDENDUM This addendum is to report the findings of the additional CK5/6 IHCs performed on blocks A8, E3, E5, E7: A8) A focus of DCIS closely approaches the LATERAL surgical margin of the lumpectomy. E3,5,7) Multiple foci of usual ductal hyperplasia (UDH) are demonstrated. No DCIS is observed in these sections of the new anterior margin Genetic test (Delfina) July 2024 no known pathogenic or likely pathogenic variant detected. September 27, 2019 five 2D echocardiogram Interpretation summary Normal left ventricle. The global longitudinal strain equals -18.4% (normal). The left ventricular ejection fraction is 60%. Structurally normal valves. October 01, 2024 PET/CT Tumor Base -Thigh Init IMPRESSION: 1. Peripheral hypermetabolic uptake along the left breast mass, greatest along the left lower and upper aspects. Recommend correlation with recent lumpectomy surgical margins and consideration of increased reexcision field. 2. Hypermetabolic uptake involving the left level I axillary nodes. No hypermetabolic level II or III nodes visualized on PET-CT examination. 3. Mild asymmetric hypermetabolic activity of the left breast parenchyma compared to the right, which may be due to inflammation from recent surgical excision. 4. Ovarian cystic lesion within the lower pelvis without hypermetabolic activityand most compatiblewith ovarian cyst, however this is incompletely characterized by noncontrast examination. Pelvic ultrasound is recommended forfurther evaluation. Treatment summary and response: Lumpectomy with sentinel lymph node biopsy August 13, 2024. Margin reexcision September 11, 2024 Adjuvant adriamycin/cyclophosphamide October 10, 2024 Interval History The patient is presenting to clinic accompanied by spouse for a planned toxicityassessment, began adjuvant AC-T on 10/10/24. Concerns today include nausea and decreased appetite, peaked day 3 through 6. No emesis. Required 3doses of ondansetron. Did not use compazine. Confirms she took dexamethasone on days 2 & 3. Didexperience some heartburn. Did not take any otc antacids. C/o headache d3. Bone pain/fatigue lasted approx 1-2 days also. Confirms she took Claritin days 1-present. Required one dose of Aleve. No BM on days 1-3, now are daily. Took one dose of senna/colace yesterday. LBM 10/17/24. Appetite now fair, PO fluid intake estimated as 32 oz per day. Specifically denies fever/chills, sweats, dizziness, CP, palpitations, cough, SOB, abd pain, Reports surgical wound is healing well without difficulty. Attempted Rajendra, butreports it made me gag. PFSH Medical History Well woman exam Ovarian cyst Encounter for education Wears glasses Low iron Restless leg syndrome History of migraine Non-smoker Iron deficiency anemia due to chronic blood loss Breast cancer Abnormal mammogram of left breast Surgical History Status post left breast lumpectomy History of Family History Mother CVA (cerebral vascular accident) Social History Smoking Status: Never smoker alcohol intake: never substance use type: does not use ROS ROS Narrative Negative except as documented in the interval HPI Intake Vital Signs 10/10/24 09:32 10/17/24 09:20 10/17/24 09:23 Height 5 ft 9 in 5 ft 9 in 5 ft 9 in Weight: 152 lb 4 oz BMI 22.4 BP 124/76 H Blood Pressure Location Rt brachial Position Sitting Respiration 16 Pulse 72 Pulse Source Monitor Temp 98.2 F Temperature Source Temporal Artery Pulse Oximetry (%) 100 Oxygen Delivery Method room air Intake Is patient in pain?: No Allergies No Known Allergies Allergy (Verified 10/17/24 09:23) Medications ?Medication ?Instructions ?Recorded ?Confirmed ?Type ferrous fumarate 325 mg (106 mg 325 mg PO QDAY 5 10/17/24 History iron) tablet ascorbic acid (vitamin C) 500 mg 500 mg PO DAILY 08/0110/17/24 History tablet (C-500) cholecalciferol (vitamin D3) 25 25 mcg PO DAILY 10/17/24 History mcg (1,000 unit) capsule (Vitamin D3) dexamethasone 4 mg tablet 8 mg (2 x 4 mg) PO .COMPLEX #32 09/26/24 10/17/24 Rx tabs lidocaine-prilocaine 2.5 %-2.5 % 1 applic topical ONCE PRN port 09/26/2410/17 Rx topical cream access 30 days #30 grams ondansetron 8 mg disintegrating 8 mg PO Q8H PRN nausea and 09/26/24 10/17/24 Rx tablet vomiting #30 tabs prochlorperazine maleate 10 mg 10 mg PO Q6H PRN nausea and 09/26/24 10/17/24 Rx tablet vomiting #30 tabs Central Venous Access Central Venous Access: Yes Laboratory Tests 10/10/24 10/17/24 08:34 09:00 WBC 4.3 L Hgb 13.2 Hct 39.6 Sodium 140 Potassium 4.3 Chloride 104 BUN 13 Creatinine 0.54 L Est GFR (MDRD) Non-Af 113 Glucose 85 Calcium 9.3 Exam Physical Exam Narrative ECOG 0 Const alert, oriented x3 and no apparent distress General Appearance: comfortable HEENT normocephalic Mouth: No lesions and No thrush Eyes General Eye: normal appearance of both eyes Neck no lymphadenopathy and no JVD Chest Chest: vascular access Resp normal respiratory effort and clear to auscultation bilaterally Cardio regular rate, regular rhythm, S1 normal heart sound and S2 normal heart sound GI normal to inspection, nondistended, normoactive bowel sounds and non-tender Back/Spine no CVA tenderness and no thoracic nor lumbar tenderness Extremity no clubbing, cyanosis or edema Skin no rashes or lesions noted Neuro oriented x3 and CN's II-XII intact bilaterally Gait (Neuro): normal gait Psych mental status grossly normal Attitude: calm and engaged Coding Level of Care Code Off vis,est,level 4 Exam Problem Focused Diagnoses Malignant neoplasm of left breast in female, estrogen receptor positive, unspecified site of jhonigS74.912; Z17.0 Breast location: unspecified site of breast Estrogen receptor status: positive Patient sex: female Laterality: left Iron deficiency anemia due to chronic blood loss D50.0 Assessment and Plan Assessment and Plan (1) Breast cancer: Status: Acute Qualifiers: Breast location: unspecified site of breast Estrogen receptor status: positive Patient sex: female Laterality: left Qualified Code(s): C50.912 - Malignant neoplasm of unspecified site of left female breast; Z17.0 - Estrogen receptor positive status [ER+] Comment: ER VA positive, diagnosed Jun 2024 (2) Iron deficiency anemia due to chronic blood loss: Status: Chronic Plan 48-year-old female, premenopausal at diagnosis with invasive ductal cancer of the left breast high risk pathologic stage IIIA (T2, N2, M0) with metastatic cancer confirmed in all 4 sentinel lymph nodes. Cancer is ER positive (over 95% moderate), VA positive (over 95%, strong) HER2 2+ by immunohistochemistry, not amplified by FISH, Ki-67 positive low about 10%). Overall grade 2 Reexcision of a close margin September 11, 2024. Chronic comorbid conditions: Chronic iron deficiency anemia from menstrual loss. Recommendations: Based on NCCN guidelines and up-to-date review of treatment of early-stage breast cancer with intent to cure options are: 1- Systemic adjuvant chemotherapy with 4 cycles dose dense AC (Adriamycin plus Cytoxan) followed by4 cycles dose dense T (paclitaxel) with supportive treatment that includes antiemetics and primary prophylaxis with growth factor. tolerated cycle 1 AC without any grade 2 or higher toxicities. No evidence of dehydration or electrolyte abnormalities today. 2. Adjuvant radiation therapy to the axilla to follow systemic chemotherapy. 3. Adjuvant hormonal therapy following radiation with an aromatase inhibitor, LHRH agonist ovarian suppression (until she undergoes planned oophorectomy) and 2 years of abemaciclib for high risk breast cancer. 4. Ovarian cyst- described as complex, reported on PET/CT 10/01/24, Pelvic US performed 10/09/24 reports presence of left ovarian cyst with echogenic foci. She was referred to sail repairer, [facility] on 10/03/24. 5. Iron deficiency anemia chronic menstrual blood loss continue oral iron supplement 1 tablet dailyat least 6 months. CBC pending. 6. Post operative period- Left breast re excision cite healing well, edges well approximated. Advised Rajendra BID hidden in smoothie. 7. CINV- grade 1. Add dexamethasone 8 mg on day 4 also with future cycles with PPI on days 1-4 withsenna/colace on days 1-3 also. Discussed olanzapine, hold for now. 8. Headache- day 3 of treatment cycle. Etiology unclear, dehydration, ondansetron, vs side effect of pegfilgrastim. Instructed to monitor for reoccurrance of headache with future use of ondansetron, discontinue ondansetron and use compazine if headache is associated with 5-HT3. RTO 10/24/24 for ?c2 AC. 10/17/24 1030 h DIRECTOR PHARMACEUTICAL DIRECTOR PHARMACEUTICAL-C> Date _ Alyssa Gillespie DIRECTOR PHARMACEUTICAL DIRECTOR PHARMACEUTICAL-C Cosigner Signature: Date (if applicable) CC: ~ [facility]05-15-2025 Progress note Author Alyssa Gillespie [facility] Note Date/Time October 17, 2024 10:30 am [facility] [place] [address] OFFICE VISIT Date of Service: 10/17/24 0919 MR#: [id number] Acct: [id number] Name: SUSAN LIN Rep #: [id number] : 1975 From: Alyssa Garcia ch DIRECTOR PHARMACEUTICAL DIRECTOR PHARMACEUTICAL-C Age/Sex: 48/F [place] [facility] Status: Signed HPI Subjective Date of Service 10/17/24 Chief Complaint Breast cancer on treatment History of Present Illness 48-year-old female who never had screening mammography and presented in June 2024 after a self palpated painless left breast mass. June 10, 2024 left breast ultrasound: Category 5, solid lesion at 12 o'clock position measuring 19 mm in maximum diameter in addition to an abnormal appearing left axillary lymph June 13, 2024 MICROSCOPIC DIAGNOSIS A. Left breast mass, core biopsy: Invasive ductal carcinoma. Ductal carcinoma in situ. See cancer summary in the comment section. B. Left axillary lymph node, core biopsy: Metastatic carcinoma, consistent with breast primary. ER: positive (>95, moderate intensity) VA: positive (>95, strong intensity) Her2: equivocal (2+) Ki67: positive, low, ~10% [id number]: [facility] lab not amplified. June 24, 2024 breast MRI: IMPRESSION: Enhancing mass at the 2:00 to 3:00 position of the left breast corresponding to the ultrasonographic abnormality representing the index lesion. No other abnormality identified. August 13, 2024 lumpectomy with sentinel lymph node biopsy: MICROSCOPIC DIAGNOSIS A: LEFT BREAST, NEEDLE-LOCALIZED LUMPECTOMY: - Invasive ductal carcinoma NST, Grade 2, surgical margins negative, pT2 pN2a. - DCIS, extensive, intermediate grade with focal necrosis, involving the anterior surgical margin. - See Comment for Synoptic Report. B: SENTINEL LYMPH NODE #1, EXCISION: - Positive for metastasis (14 mm) (/). C: SENTINEL LYMPH NODE #2, EXCISION: - Positive for metastasis (1/). D: LEFT AXILLARY CONTENTS, EXCISION: - Two lymph nodes positive for metastasis (2/2). E: NEW ANTERIOR MARGINS, EXCISION: - Negative for invasive carcinoma. - Additional IHC to rule out DCIS are PENDING (to be reported in an addendum). SYNOPTIC REPORT FOR INVASIVE BREAST CARCINOMA Specimen (P=partial, M=mastectomy): P Laterality (R=right, L=left): L Focality (U=unifocal, M=multifocal): U Tumor size (cm): 2.2 x 1.5 x 1.4 cm Histologic type: invasive ductal carcinoma Histologic grade: 2 Tubule score (1-3): 3 Nuclear score (1-3): 2 Mitotic score (1-3): 1 Skin (I=involved, N=negative, NA=not applicable): N Lymphovascular invasion (E=extensive, F=focal, N=not identified): assessment PENDING IHC (to be reported in an addendum). Margins of main specimen (P=positive, N=negative): N Distance to closest margin of main specimen (mm): 0.5 mm Designation of closest margin of main specimen: posterior Designation of other margins of main specimen </=1 mm: NA Re-resection margin status (P=positive, N=negative, NA=not applicable): N DCIS (P=present, N=not identified): P Nuclear grade: 2 Comedo necrosis (P=present, N=not identified): P Extensive intraductal component (P=present, N=not identified): P Margins of main specimen (P=positive, N=negative): P Distance to closest margin of main specimen (mm): 0 mm Designation of closest margin of main specimen: anterior Designation of other margins of main specimen </=2 mm: posterior Longest span </= 2 mm to margin of main specimen (mm): 2.5 mm Re-resection margin status (P=positive, N=negative, NA=not applicable): N Regional lymph nodes: Total number of lymph nodes: 4 Number of sentinel lymph nodes: 2 Number with macrometastases: 4 Number with micrometastases: NA Number with isolated tumor cells: NA Size of largest cole metastasis (mm): 14 mm Size of extranodal extension (mm) (N=not identified): N Estrogen receptor: positive (95%, strong intensity) Progesterone receptor: positive (90%, intermediate intensity) HER2 IHC: equivocal (2+) HER2 FISH: PENDING (at [facility]) Specimen in which ER/VA/HER2 performed: [id number] A pTNM: pT2 pN2a ADDENDUM This addendum is to report the results of the IHC for ERG (blocks A9, A10) performed at [facility]: No definitive lymphovascular invasion is identified with the ERG IHC. ADDENDUM This addendum is to report the findings of the additional CK5/6 IHCs performed on blocks A8, E3, E5, E7: A8) A focus of DCIS closely approaches the LATERAL surgical margin of the lumpectomy. E3,5,7) Multiple foci of usual ductal hyperplasia (UDH) are demonstrated. No DCIS is observed in these sections of the new anterior margin Genetic test (Delfina) July 2024 no known pathogenic or likely pathogenic variant detected. September 27, 2019 five 2D echocardiogram Interpretation summary Normal left ventricle. The global longitudinal strain equals -18.4% (normal). The left ventricular ejection fraction is 60%. Structurally normal valves. October 01, 2024 PET/CT Tumor Base -Thigh Init IMPRESSION: 1. Peripheral hypermetabolic uptake along the left breast mass, greatest along the left lower and upper aspects. Recommend correlation with recent lumpectomy surgical margins and consideration of increased reexcision field. 2. Hypermetabolic uptake involving the left level I axillary nodes. No hypermetabolic level II or III nodes visualized on PET-CT examination. 3. Mild asymmetric hypermetabolic activity of the left breast parenchyma compared to the right, which may be due to inflammation from recent surgical excision. 4. Ovarian cystic lesion within the lower pelvis without hypermetabolic activityand most compatible with ovarian cyst, however this is incompletely characterized by noncontrast examination. Pelvic ultrasound is recommended for further evaluation. Treatment summary and response: Lumpectomy with sentinel lymph node biopsy August 13, 2024. Margin reexcision September 11, 2024 Adjuvant adriamycin/cyclophosphamide October 10, 2024 Interval History The patient is presenting to clinic accompanied by spouse for a planned toxicityassessment, began adjuvant AC-T on 10/10/24. Concerns today include nausea and decreased appetite, peaked day 3 through 6. No emesis. Required 3 doses of ondansetron. Did not use compazine. Confirms she took dexamethasone on days 2 & 3. Did experience some heartburn. Did not take any otc antacids. C/o headache d3. Bone pain/fatigue lasted approx 1-2 days also. Confirms she took Claritin days 1-present. Required one dose of Aleve. No BM on days 1-3, now are daily. Took one dose of senna/colace yesterday. LBM 10/17/24. Appetite now fair, PO fluid intake estimated as 32 oz per day. Specifically denies fever/chills, sweats, dizziness, CP, palpitations, cough, SOB, abd pain, Reports surgical wound is healing well without difficulty. Attempted Rajendra, butreports it made me gag. [facility] Medical History Well woman exam Ovarian cyst Encounter for education Wears glasses Low iron Restless leg syndrome History of migraine Non-smoker Iron deficiency anemia due to chronic blood loss Breast cancer Abnormal mammogram of left breast Surgical History Status post left breast lumpectomy History of Family History Mother CVA (cerebral vascular accident) Social History Smoking Status: Never smoker alcohol intake: never substance use type: does not use ROS ROS Narrative Negative except as documented in the interval HPI Intake Vital Signs 10/10/24 09:32 10/17/24 09:20 10/17/24 09:23 Height 5 ft 9 in 5 ft 9 in 5 ft 9 in Weight: 152 lb 4 oz BMI 22.4 BP 124/76 H Blood Pressure Location Rt brachial Position Sitting Respiration 16 Pulse 72 Pulse Source Monitor Temp 98.2 F Temperature Source Temporal Artery Pulse Oximetry (%) 100 Oxygen Delivery Method room air Intake Is patient in pain?: No Allergies No Known Allergies Allergy (Verified 10/17/24 09:23) Medications ?Medication ?Instructions ?Recorded ?Confirmed ?Type ferrous fumarate 325 mg (106 mg 325 mg PO QDAY 5 10/17/24 History iron) tablet ascorbic acid (vitamin C) 500 mg 500 mg PO DAILY 08/0110/17/24 History tablet (C-500) cholecalciferol (vitamin D3) 25 25 mcg PO DAILY 10/17/24 History mcg (1,000 unit) capsule (Vitamin D3) dexamethasone 4 mg tablet 8 mg (2 x 4 mg) PO .COMPLEX #32 09/26/24 10/17/24 Rx tabs lidocaine-prilocaine 2.5 %-2.5 % 1 applic topical ONCE PRN port 09/26/2410/17 Rx topical cream access 30 days #30 grams ondansetron 8 mg disintegrating 8 mg PO Q8H PRN nausea and 09/26/24 10/17/24 Rx tablet vomiting #30 tabs prochlorperazine maleate 10 mg 10 mg PO Q6H PRN nausea and 09/26/24 10/17/24 Rx tablet vomiting #30 tabs Central Venous Access Central Venous Access: Yes Laboratory Tests 10/10/24 10/17/24 08:34 09:00 WBC 4.3 L Hgb 13.2 Hct 39.6 Sodium 140 Potassium 4.3 Chloride 104 BUN 13 Creatinine 0.54 L Est GFR (MDRD) Non-Af 113 Glucose 85 Calcium 9.3 Exam Physical Exam Narrative ECOG 0 Const alert, oriented x3 and no apparent distress General Appearance: comfortable HEENT normocephalic Mouth: No lesions and No thrush Eyes General Eye: normal appearance of both eyes Neck no lymphadenopathy and no JVD Chest Chest: vascular access Resp normal respiratory effort and clear to auscultation bilaterally Cardio regular rate, regular rhythm, S1 normal heart sound and S2 normal heart sound GI normal to inspection, nondistended, normoactive bowel sounds and non-tender Back/Spine no CVA tenderness and no thoracic nor lumbar tenderness Extremity no clubbing, cyanosis or edema Skin no rashes or lesions noted Neuro oriented x3 and CN's II-XII intact bilaterally Gait (Neuro): normal gait Psych mental status grossly normal Attitude: calm and engaged Coding Level of Care Code Off vis,est,level 4 Exam Problem Focused Diagnoses Malignant neoplasm of left breast in female, estrogen receptor positive, unspecified site of breast C50.912; Z17.0 Breast location: unspecified site of breast Estrogen receptor status: positive Patient sex: female Laterality: left Iron deficiency anemia due to chronic blood loss D50.0 Assessment and Plan Assessment and Plan (1) Breast cancer: Status: Acute Qualifiers: Breast location: unspecified site of breast Estrogen receptor status: positive Patient sex: female Laterality: left Qualified Code(s): C50.912 - Malignant neoplasm of unspecified site of left female breast; Z17.0 - Estrogen receptor positive status [ER+] Comment: ER VA positive, diagnosed Jun 2024 (2) Iron deficiency anemia due to chronic blood loss: Status: Chronic Plan 48-year-old female, premenopausal at diagnosis with invasive ductal cancer of the left breast high risk pathologic stage IIIA (T2, N2, M0) with metastatic cancer confirmed in all 4 sentinel lymph nodes. Cancer is ER positive (over 95% moderate), VA positive (over 95%, strong) HER2 2+ by immunohistochemistry, not amplified by FISH, Ki-67 positive low about 10%). Overall grade 2 Reexcision of a close margin September 11, 2024. Chronic comorbid conditions: Chronic iron deficiency anemia from menstrual loss. Recommendations: Based on NCCN guidelines and up-to-date review of treatment of early-stage breast cancer with intent to cure options are: 1- Systemic adjuvant chemotherapy with 4 cycles dose dense AC (Adriamycin plus Cytoxan) followed by 4 cycles dose dense T (paclitaxel) with supportive treatment that includes antiemetics and primary prophylaxis with growth factor. tolerated cycle 1 AC without any grade 2 or higher toxicities. No evidence of dehydration or electrolyte abnormalities today. 2. Adjuvant radiation therapy to the axilla to follow systemic chemotherapy. 3. Adjuvant hormonal therapy following radiation with an aromatase inhibitor, LHRH agonist ovarian suppression (until she undergoes planned oophorectomy) and 2 years of abemaciclib for high risk breast cancer. 4. Ovarian cyst- described as complex, reported on PET/CT 10/01/24, Pelvic US performed 10/09/24 reports presence of left ovarian cyst with echogenic foci. She was referred to sail repairer, [facility] on 10/03/24. 5. Iron deficiency anemia chronic menstrual blood loss continue oral iron supplement 1 tablet daily at least 6 months. CBC pending. 6. Post operative period- Left breast re excision cite healing well, edges well approximated. Advised Rajendra BID hidden in smoothie. 7. CINV- grade 1. Add dexamethasone 8 mg on day 4 also with future cycles with PPI on days 1-4 with senna/colace on days 1-3 also. Discussed olanzapine, hold for now. 8. Headache- day 3 of treatment cycle. Etiology unclear, dehydration, ondansetron, vs side effect of pegfilgrastim. Instructed to monitor for reoccurrance of headache with future use of ondansetron, discontinue ondansetron and use compazine if headache is associated with 5-HT3. RTO 10/24/24 for ?c2 AC. 10/17/24 1030 <Electronically signed by Alyssa peña NP DIRECTOR PHARMACEUTICAL-C> Date _ Alyssa JohnsonVerna DIRECTOR PHARMACEUTICAL DIRECTOR PHARMACEUTICAL-C Cosigner Signature: Date (if applicable) CC: ~ [facility] Work Phone: 1(856) 172-582805-13-2025 Radiology Diagnostic study note [facility] Imaging Services [address] [place], [place] [address] Pelvic w/ Transvaginal MR#: [id number] Acct: [id number] Name: SUSAN LIN Rep #: [id number] : 1975 F 48 From: Jaime Celestin DO PCP: T[facility] Genao Status: REG CLI Study:Pelvic w/ Transvaginal Date of Exam: 10/09/24 Exam# [id number] Ordering Dr: Bandar Stubbs MD PROCEDURE: PELVIC W/ TRANSVAGINAL 10/09/2024 REASON FOR EXAM: CYST. History of left breast cancer. She had a prior lumpectomy. 1st day of last menstrual period was 10/04/2024. 3 para 3. TECHNIQUE: Transabdominal pelvic ultrasound COMPARISON: PET-CT exam dated 10/02/2024 FINDINGS: Measurements: Uterus: 10.1 x 5.8 x 4.4 cm. The uterus is anteverted. Nabothian cysts are seen. Endometrial Thickness: 6 mm. The endometrial stripe is hyperechoic. Right Ovary: The right ovary was only appreciated on the transabdominal images. Right ovary measures 2.2 x 1.8 x 1.4 cm. Contour and echogenicity are within thin normal limits. Left Ovary: The left ovary was best visualized on the endovaginal pelvic study. The left ovary measures 7.2 x 6.0 x 4.8 cm. There is a cyst identified involving the left ovary measuring 6.2 x 5.8 x 4.2 cm. The borders of the cyst has echogenic foci along it. Other: There is no fluid in the cul-de-sac. The urinary bladder measures 4.0 x 3.1 x 7.1 cm. Urinary bladder volume is 46 mL. US/Pelvic w/ Transvaginal IMPRESSION: 1. The uterus is anteverted. 2. Nabothian cyst. 3. Left ovarian cyst which has echogenic foci along portions of the border. RECOMMENDATION: Follow-up pelvic ultrasound in 6 weeks for re-evaluation of the left ovarian cyst. Reading Location: [id number] CC: Dr. Bandar Stubbs MD; TATE Genao ~ [employer] Worker: Signed [facility]05-08-2025 Evaluation note* Diagnosis Onset Date Resolution Status Admit Date Breast cancer acute October 10 8:07am Iron deficiency anemia due t o chronic blood loss chronic October 10, 2024 8:07am Breast cancer acute October 17 8:50am Iron deficiency anemia due t o chronic blood loss chronic October 17 8:50am Breast cancer acute October 24 8:49am Encounter for chemotherapy management acute October 24, 2024 8 :49am Breast cancer acute November 07 8:53am Encounter for chemotherapy management acute November 07, 2024 8 :53am Breast cancer acute November 21, 2024 8:41am Encounter for chemotherapy management acute November 21, 2024 8:41am Breast cancer acute December 04 8:15am Regional lymph node metastas is present acute December 04, 2024 8 :15am Iron deficiency anemia due t o chronic blood loss chronic December 04 8:15am Ovarian cyst acute December 13 025 2:20pm Breast cancer acute December 19, 2024 8:44am Encounter for chemotherapy management acute December 19, 2024 8:44am Regional lymph node metastas is present acute December 19, 2024 8:44am Transaminitis acute December 19, 2024 8:44am Iron deficiency anemia due t o chronic blood loss chronic December 19 8:44am Breast cancer acute December 26, 2024 7:33am Encounter for chemotherapy management acute Jayla 24th, 2025 7:33am Regional lymph node metastas is present acute December 26, 2024 7:33am Transaminitis acute December 26, 2024 7:33am Iron deficiency anemia due t o chronic blood loss chronic December 26 7:33am Breast cancer acute January 02, 2025 8:27am Encounter for chemotherapy management acute January 02, 2025 8:27am Regional lymph node metastas is present acute January 02, 2025 8:27am Transaminitis acute January 02, 2025 8:27am Iron deficiency anemia due t o chronic blood loss chronic January 02 8:27am Breast cancer acute January 8:13am Regional lymph node metastas is present acute January 16 8:13am Iron deficiency anemia due t o chronic blood loss chronic January 16, 2025 8:13am Breast cancer acute January 9:14am Regional lymph node metastas is present acute January 30 9:14am Iron deficiency anemia due t o chronic blood loss chronic January 30, 2025 9:14am [facility] Work Phone: 1(274) 946-549804-22-2025 Evaluation note* Diagnosis Onset Date Resolution Status Admit Date Breast cancer acute September 24, 2024 9:32am Breast cancer acute September 26, 2024 10:48am Encounter for education acute A pril 2024 10:48am Iron deficiency anemia due t o chronic blood loss chronic September 26, 025 10:48am Breast cancer acute October 10 8:07am Iron deficiency anemia due t o chronic blood loss chronic October 10, 2024 8:07am Breast cancer acute October 17 025 8:50am Iron deficiency anemia due t o chronic blood loss chronic October 17 8:50am Breast cancer acute October 24 8:49am Encounter for chemotherapy management acute October 24, 2024 8 :49am Breast cancer acute November 07 8:53am Encounter for chemotherapy management acute November 07, 2024 8 :53am Breast cancer acute November 21, 2024 8:41am Encounter for chemotherapy management acute November 21, 2024 8:41am Breast cancer acute December 04 8:15am Regional lymph node metastas is present acute December 04, 2024 8 :15am Iron deficiency anemia due t o chronic blood loss chronic December 04 8:15am Ovarian cyst acute December 13, 025 2:20pm Breast cancer acute December 19, 2024 8:44am Encounter for chemotherapy management acute December 19, 2024 8:44am Regional lymph node metastas is present acute December 19, 2024 8:44am Transaminitis acute December 19, 2024 8:44am Iron deficiency anemia due t o chronic blood loss chronic December 19 8:44am Breast cancer acute December 26, 2024 7:33am Encounter for chemotherapy management acute December 26, 2024 7:33am Regional lymph node metastas is present acute December 26, 2024 7:33am Transaminitis acute December 26, 2024 7:33am Iron deficiency anemia due t o chronic blood loss chronic December 26 7:33am Breast cancer acute January 02, 2025 8:27am Encounter for chemotherapy management acute January 02, 2025 8:27am Regional lymph node metastas is present acute January 02, 2025 8:27am Transaminitis acute January 02, 2025 8:27am Iron deficiency anemia due t o chronic blood loss chronic January 02 8:27am Breast cancer acute January 8:13am Regional lymph node metastas is present acute January 16 8:13am Iron deficiency anemia due t o chronic blood loss chronic January 16, 2025 8:13am [facility] Work Phone: 1(109) 796-681904-09-2025 Discharge summary [facility] Medical Records Department [address] [place] [address] Instructions for Home/Discharge Instructions 09/11/24 1236 MR#: [id number] Acct: [id number] Name: SUSAN LIN Rep #:[id number] : 1975 48 From: Gareth Mcdaniel MD PCP: [facility] [place] [facility] [place] Diet Discharge Diet: Light diet - advance as tolerated Activity Discharge Activity: Return to Normal Activity May shower in (days): 1 Ice area for (Minutes): 30 Dressing / Incision Call your doctor if your incision/area has: Continuous Slow Oozing, Sudden Increased Bleeding, Increased Pain/ Swelling, Increased Redness, Foul Smelling Discharge and Swelling at the incision site Call your doctor if you observe: Fever of 101 or Higher Cleanse incision/area with: Soap & Water Additional Dressing/Incision Instructions:: Remove gauze dressing prior to firstshower. Wear supportive bra/sports bra Follow Up Care Please Follow Up With: Gareth Mcdaniel MD When: Approximately 2 weeks. Please call to schedule appointment Test Results: Test results from this visit will be discussed in further detail at your follow- up appointment, if applicable. Discharge Plan Admission Primary Reason for Your Visit: Left breast cancer Attending Provider: Gareth Mcdaniel Primary Care Provider: Romelia Martin Print Language: Greek Discharge Orders/Prescriptions Prescriptions: New oxycodone-acetaminophen [Percocet] 5-325 mg tablet 1 tab PO Q8H PRN (Reason: pain) 3 Days Qty: 9 0RF Continued ferrous fumarate 325 mg (106 mg iron) tablet 325 mg PO QDAY ascorbic acid (vitamin C) [C-500] 500 mg tablet 500 mg PO DAILY cholecalciferol (vitamin D3) [Vitamin D3] 25 mcg (1,000 unit) capsule 25 mcg PO DAILY Referrals / Follow Up: Romelia Martin PA [Primary Care Provider] - Disposition Disposition (needs filled in before D/C Order can be placed): Home, Self Care 09/11/24 1359Stabdias Mcdaniel MD CC: TATE Genao ~ Signed [facility]04-09-2025 Procedure note [facility] Medical Records Department [address] [place] [address] Operative Report 09/11/24 1241 MR#: [id number] Acct: [id number] Name: SUSAN LIN Rep #:[id number] : 1975 48 From: Gareth Mcdaniel MD PCP: TATE Genao Status:[facility] Location: [place] [address] Problems Associated Problem List Diagnoses (1) Breast cancer: Procedures Integumentary [id number]: [id number] Partial mastectomy (With modifier 58) Operative Report (Standard) Operative Information Date of Procedure: 09/11/24 Pre-Operative Diagnosis: Left breast cancer Post-Operative Diagnosis: Left breast cancer Surgery/Procedure Performed: 1. Reexcision of left lateral breast margin 2. Flush Mediport with heparin tap puller: Yes Real Estate Paralegal: Karen Richards Tasks completed by assistant product manager: Closing and Retracting Additional hotel assistant manager?: No Type of Anesthesia: Local and MAC RN Documented Start/Stop Times: Operation Date: 09/11/24 11:30 Case Time Into Pre-Op 09/11/24 10:34 Anesthesia Start 09/11/24 11:26 Into Room 09/11/24 11:26 Out of Pre-Op 09/11/24 11:26 Procedure Start 09/11/24 11:49 Procedure End 09/11/24 12:17 Anesthesia End 09/11/24 12:19 Out of Room 09/11/24 12:19 Into Recovery 09/11/24 12:21 Procedure Start Time: 11:49 Procedure Stop Time: 12:17 Select all DRAINS/GRAFTS/IMPLANTS that apply: None Estimated Blood Loss: 10 mL Specimen collected: Yes Description of specimen(s) removed: New left lateral breast margin. Long stitch marking the lateral aspect. Short stitch marking superior aspect Description of surgery: The patient is a 48-year-old female recently diagnosed with left breast cancer. A few weeks ago sheunderwent left breast lumpectomy. The margins of the invasive cancer were clear however there was asmall area in the lateral margin that was considered close for DCIS. This was discussed with radiation oncology,and it was felt that reexcision to ensure excellent margins would be in the patient's best interest. This was offered to the patient and she wished to proceed. She also requested that herright-sided Mediport be flushed as this has not been flushed since it was installed in surgery about 3 to 4 weeks ago. She is not planning to be seen by oncology for another month. The patient was brought to the op room today following informed consent. She was placed supine on the operative table with arms outstretched on arm boards. Bilateral chest and neck regions were prepped and draped in the usual sterile manner. The reexcision lumpectomy was performed first. Residual skin glue was removed. Local anesthetic was infiltrated into the area. #15 blade was then used to make a skin incision through the previous incision. Seroma was then evacuated. This did not appear to be infected. The lateral margin was excised by developing a subdermal plane. This was then grasped with an Allis clamp and this was developed further. The posterior margin was down to the chest wall. There was really minimal if any significant anterior margin. The resultant lateral margin specimen was then oriented such that a long stitch was placed on the lateral aspect. This would be opposite to the seroma cavity. A short stitch was then placed on the anterior aspect of the new margin. Hemostasis wasexcellent. The wound was then copiously irrigated. Multiple small 5 mm clips were then placed for marking of the biopsy cavity. The wound was then closed using 3-0 Vicryl in the subdermal layer and then 4-0 Vicryl was run in the skin. Skin glue was applied as dressing. The right sided port was then flushed. In order to do so, a small opening was made in the drapes toexpose the port. This was prepped underneath sterilely. The port was easily accessed. It sonam and flushed nicely with good blood return. 5 cc of heparin flush was then flushed through the catheter. The site was then dressed with a sterile OpSite. She was then awakened from anesthesia and taken to recovery in good condition. A BANK ANALYST was utilized as a assistant toddler teacher. Her role included skin retraction andassistance with skinclosure Surgical Findings: See operative note Complications Complications: No Admit VTE Documentation VTE Present on Admission: No VTE Mechan Device Prophylaxis: SCD's VTE Pharm Prophylaxis ordered?: No Reason prophylaxis not ordered: Treatment Not Indicated 09/11/24 1304 Cosigner Signature (if applicable): CC: Dr. Gareth Mcdaniel MD; TATE Genao~ Signed [facility]04-09-2025 History and physical note Author [facility] Note Date/Time September 11, 2024 10:5 8am [facility] Medical Records Department [address] [place] [address] History & Physical Exam 09/11/24 1057 MR#: [id number] Acct: [id number] Name: SUSAN LIN Rep #:[id number] : 1975 48 From: Gareth Mcdaniel MD PCP: TATE Genao [place] [facility] [place] [id number] HPI - General General Date of Admission: 09/11/24 Date of Service: 09/11/24 Chief Complaint: Breast cancer HPI Narrative SUSAN LIN, is a 48 F who presents for reexcision lumpectomy for wider margins. She was recently diagnosed with breast cancer. Lumpectomy was performed however pathology indicated DCIS to be very close to the lateral margin. She presents today for reexcision to ensure sufficient margins prior tobeginning chemo and radiation [facility] Medical History Wears glasses Low iron Restless leg syndrome History of migraine Non-smoker Iron deficiency anemia due to chronic blood loss Breast cancer Abnormal mammogram of left breast Home Medications ?Medication ?Instructions ?Recorded ?Last Taken ?Type ferrous fumarate 325 mg (106 mg 325 mg PO QDAY 5 Unknown History iron) tablet ascorbic acid (vitamin C) 500 mg 500 mg PO DAILY 08/01 Unknown History tablet (C-500) cholecalciferol (vitamin D3) 25 25 mcg PO DAILY Unknown History mcg (1,000 unit) capsule (Vitamin D3) Allergy/AdvReac Type Severity Reaction Status Date / Time No Known Allergies Allergy Verified 09/11/24 10:34 Family History Mother CVA (cerebral vascular accident) Surgical History Status post left breast lumpectomy History of Social History Smoking Status: Never smoker alcohol intake: never substance use type: does not use Vital Signs Vital Signs Vital Signs: 09/11/24 10:36 09/11/24 10:36 Temperature 98.1 F Temperature Source Temporal Pulse Rate 78 Respiratory Rate 18 Respiratory Pattern Normal Blood Pressure 146/81 H Blood Pressure Mean 102 Blood Pressure Source Monitor Blood Pressure Position Sitting Blood Pressure Location Right Arm Pulse Ox 100 Oxygen Delivery Method Room Air Weight Weight: 149 lb 14.629 oz Body Mass Index (BMI) 22.1 Physical Exam Const alert and oriented x3 Results Lab / Micro Data Labs: Laboratory Results - last 24 hr 09/11/24 10:10: Urine Test Negative Assessment & Plan Assessment/Plan (1) Breast cancer: QUALIFIERS: Breast location: unspecified site of breast Estrogen receptor status: positive Patient sex: female Laterality: left Qualified Code(s): C50.912 - Malignant neoplasm of unspecified site of left female breast;Z17.0 - Estrogen receptor positive status [ER+] PLAN: Plan The patient is a 48-year-old female with breast cancer. She presents today for reexcision of her lateral margin to ensure sufficient margins as DCIS was noted to be at or very close to this lateral margin. We discussed the details of the planned surgery in the office. She wishes to proceed. Surgery will take place today 09/11/24 1058 <Electronically signed by Gareth Mcdaniel MD> Cosigner Signature (if applicable): CC: Dr. Gareth Mcdaniel MD; TATE Genao~ Signed [facility] Work Phone: 1(102) 497-442204-09-2025 Consult note [facility] Medical Records Department [address] [place] [address] Anesthesia Postop Eval I 09/11/24 1223 MR#: [id number] Acct: [id number] Name: SUSAN LIN Rep #:[id number] : 1975 48 From: Deidra silva CRNA PCP: TATE Genao [place] [facility] [place] C Location: [place] [address] Anesthesia: Postop Eval I Current Vital Signs Temperature: 97.7 F Pulse Rate: 106 Blood Pressure: 116/69 Respiratory Rate: 16 Pulse Ox: 100 Oxygen Delivery Method: Room Air Assessment Airway patent: Yes Spontaneous unlabored respirations: Yes Mental status: Awake and Calm nausea: No Vomiting: No Anesthesia Complication: No Fluid Hydration Crystalloid volume administer (ml): 800 Total IV fluid infused: 800 Progress Note Anesthesia document: Postop Eval 1 completed: Yes 09/11/24 1224 kit MOYA> Date _ Deidra Magana CRNA Cosigner Signature: Date CC: ~ Signed [facility]04-09-2025 Consult note Author Yovany Rios [facility] Note Date/Time September 11, 2024 10:1 1am [facility] Medical Records Department [address] [place] [address] Pre-Anesthesia Evaluation 09/11/24 1010 MR#: [id number] Acct: [id number] Name: SUSAN LIN Rep #:[id number] : 1975 48 From: Yovany Rios MD PCP: TATE Genao [place] [facility] [place] C Location: [place] [address] ASA Classification* ASA Classification ASA Classification: 2 Assessment & Plan Anesthesia* Anesthesia Assessment Anesthesia Assessment: Discussed sedation and/or anesthesia options, risks, benefits, and alternatives with patient/parents/legal guardian/POA. Questions invited. The patient/parents/legal guardian/POA seems to understand and agrees to proceedwith anesthesia plan. Reviewed the physical assessment, medical history, allergy history and patient home medications list prior to surgery/procedure/anesthetic and documented any changes. Performed airway and anesthesia risk assessments. Anesthesia Type Anesthesia Type: General Anesthesia Focused Assessment* Airway Assessment Mouth opens: >3 cm Mallampati Score: II Focused Labs Anesthesia Preop lab: CBC WBC 6.5 K/mm3 (4.4-11.0) 07/08/24 10:07/08/24 RBC 5.16 M/mm3 (4.2-5.4) 07/08/24 10:07/08/24 Hgb 11.2 g/dL (12.0-15.0) L 07/08/24 10: 5 Hct 37.3 % (37-47) 07/08/24 10:07/08/24 Plt Count 292 K/mm3 (150-450) 07/08/24 10:20 07/08/24 CHEMISTRY Potassium 4.2 mmol/L (3.5-5.1) 07/08/24 10:20 07/08/24 Sodium 140 mmol/L (136-145) 07/08/24 10:20 07/08/24 BUN 12 mg/dL (7-18) 07/08/24 10:20 07/08/24 Creatinine 0.64 mg/dL (0.55-1.02) 07/08/24 10:20 07/08/24 Glucose 95 mg/dL (74-106) 07/08/24 10:20 07/08/24 COAG Urine Test Negative Negative 08/13/24 09:45 08/13/24 Pre-Assessment Diagnosis/Proposed Procedure Planned Operative Procedure(s): RE-EXCISION BREAST MASS LEFT Anesthesia History Anesthesia History - manager telecom: Anesthesia History - manager telecom Hx Hospitalization No 08/28/24 14:49 Any Problems With Anesthesia No 08/28/24 14:49 Cholinesterase deficiency No 08/28/24 14:49 You/Your Family Experience No 08/28/24 14:49 fever (hyperthermia) with Relationship Recent Exposure to Contagious No 08/13/24 09:57 Disease Does patient have nerve No 08/28/24 14:49 stimulator Patient instructed to have device shut off --Does patient have Pacemaker or ICD? When Was Last Pacemaker Check QUESTION #4 FULL TEXT: You/Your Family Experience fever (hyperthermia) with Anesthesia Last Oral Intake Last Oral intake: Last Oral Intake NPO since Meds taken in AM with sips of water? Meds patient instructed to take am of surgery PONV PONV - manager telecom: PONV - manager telecom Female Yes 08/28/24 14:49 HX of Motion Sickness Yes 08/28/24 14:49 HX of N/V After Surgery No 08/28/24 14:49 Non-Smoker Yes 08/28/24 14:49 Duration of Surgery greater No 08/28/24 14:49 than 60 minutes Number of Risk Factors 3 08/28/24 14:49 PONV Score Moderate Risk 08/28/24 14:49 Height & Weight Height & Weight: Anesthesia: Height & Weight Height 5 ft 9 in 08/26/24 14:33 Respiratory Assessment Respiratory Assessment - manager telecom: Respiratory Tract Infection Hx - manager telecom Hx Respiratory Tract Infection No 08/28/24 14:49 STOP Sleep Apnea STOP Sleep Apnea - manager telecom: STOP Sleep Apnea - manager telecom Hx Hypertension No 08/28/24 14:49 Hx Sleep Apnea No 08/28/24 14:49 CPAP BIPAP Do you snore loudly (louder No 08/28/24 14:49 than talking or can be heard Do you often feel tired/ No 08/28/24 14:49 fatigued/ sleepy during daytime? Has anyone observed you stop No 08/28/24 14:49 breathing during sleep? STOP Results Negative 08/28/24 14:49 QUESTION #5 FULL TEXT : Do you snore loudly (louder than talking or can be heard through closed doors)? 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 Specify any problems Hx of Preganancy in last 3 No 08/28/24 14:49 Months Nurse Filling Out Transfusion DSCHRIBER 08/28/24 14:49 & Questions: Date: 08/28/24 08/28/24 14:49 Time: 14:50 08/28/24 14:49 Patient unable to answer at this time (ie. confused, unrespo /Reproduction History /Reproductive History - manager telecom: /Reproductive Hx- manager telecom Hx Now Gestational Age (in weeks): EDC: Hx Hx Para Hx Section SAB No 08/28/24 14:49 PFSH Medical History Wears glasses Low iron Restless leg syndrome History of migraine Non-smoker Iron deficiency anemia due to chronic blood loss Breast cancer Abnormal mammogram of left breast Home Medications ?Medication ?Instructions ?Recorded ?Last Taken ?Type ferrous fumarate 325 mg (106 mg 325 mg PO QDAY 5 Unknown History iron) tablet ascorbic acid (vitamin C) 500 mg 500 mg PO DAILY 08/01 Unknown History tablet (C-500) cholecalciferol (vitamin D3) 25 25 mcg PO DAILY Unknown History mcg (1,000 unit) capsule (Vitamin D3) Allergy/AdvReac Type Severity Reaction Status Date / Time No Known Allergies Allergy Verified 08/26/24 14:35 Family History Mother CVA (cerebral vascular accident) Surgical History Status post left breast lumpectomy History of Social History Smoking Status: Never smoker alcohol intake: never substance use type: does not use Review of Systems (Anesthesia) ROS Narrative System reviewed and no additional complaints, except as documented. 09/11/24 1011 <Electronically signed by Yovany Rios MD > Date _ Yovany Rios MD Cosigner Signature: Date CC: ~ Signed [facility] Work Phone: 1(258) 942-373704-09-2025 Evaluation note* Diagnosis Onset Date Resolution Status Admit Date Breast cancer acute September 11, 2024 9:50am Breast cancer acute September 24, 2024 9:32am Breast cancer acute September 26, 2024 10:48am Encounter for education acute A pril 2024 10:48am Iron deficiency anemia due t o chronic blood loss chronic September 26, 2 025 10:48am Breast cancer acute October 10 8:07am Iron deficiency anemia due t o chronic blood loss chronic October 10, 2024 8:07am Breast cancer acute October 17, 2 025 8:50am Iron deficiency anemia due t o chronic blood loss chronic October 17 8:50am Breast cancer acute October 24 8:49am Encounter for chemotherapy management acute October 24, 2024 8 :49am Breast cancer acute November 07 8:53am Encounter for chemotherapy management acute November 07, 2024 8 :53am Breast cancer acute November 21, 2024 8:41am Encounter for chemotherapy management acute November 21, 2024 8:41am Breast cancer acute December 04 8:15am Regional lymph node metastas is present acute December 04, 2024 8 :15am Iron deficiency anemia due t o chronic blood loss chronic December 04 8:15am Ovarian cyst acute December 13 2:20pm Breast cancer acute December 19, 2024 8:44am Encounter for chemotherapy management acute December 19, 2024 8:44am Regional lymph node metastas is present acute December 19, 2024 8:44am Transaminitis acute December 19, 2024 8:44am Iron deficiency anemia due t o chronic blood loss chronic December 19 8:44am [facility] Work Phone: [phone]) 991-852804-09-2025 Evaluation note* Diagnosis Onset Date Resolution Status Admit Date Breast cancer acute September 11, 2024 9:50am Breast cancer acute September 24, 2024 9:32am Breast cancer acute September 26, 2024 10:48am Encounter for education acute A pril 2024 10:48am Iron deficiency anemia due t o chronic blood loss chronic September 26 10:48am Breast cancer acute October 10 8:07am Iron deficiency anemia due t o chronic blood loss chronic October 10, 2024 8:07am Breast cancer acute October 17 8:50am Iron deficiency anemia due t o chronic blood loss chronic October 17 8:50am Breast cancer acute October 24 8:49am Encounter for chemotherapy management acute October 24, 2024 8 :49am Breast cancer acute November 07 8:53am Encounter for chemotherapy management acute November 07, 2024 8 :53am Breast cancer acute November 21, 2024 8:41am Encounter for chemotherapy management acute November 21, 2024 8:41am Breast cancer acute December 04 8:15am Regional lymph node metastas is present acute December 04, 2024 8 :15am Iron deficiency anemia due t o chronic blood loss chronic December 04 8:15am Ovarian cyst acute December 13 025 2:20pm Breast cancer acute December 19, 2024 8:44am Encounter for chemotherapy management acute December 19, 2024 8:44am Regional lymph node metastas is present acute December 19, 2024 8:44am Transaminitis acute December 19, 2024 8:44am Iron deficiency anemia due t o chronic blood loss chronic December 19 8:44am Breast cancer acute December 26, 2024 7:33am Encounter for chemotherapy management acute December 26, 2024 7:33am Regional lymph node metastas is present acute December 26, 2024 7:33am Transaminitis acute December 26, 2024 7:33am Iron deficiency anemia due t o chronic blood loss chronic December 26 7:33am [facility] Work Phone: [phone]) 448-721104-09-2025 Evaluation note* Diagnosis Onset Date Resolution Status Admit Date Breast cancer acute September 11, 2024 9:50am Breast cancer acute September 24, 2024 9:32am Breast cancer acute September 26, 2024 10:48am Encounter for education acute A pril 2024 10:48am Iron deficiency anemia due t o chronic blood loss chronic September 26 025 10:48am Breast cancer acute October 10 8:07am Iron deficiency anemia due t o chronic blood loss chronic October 10, 2024 8:07am Breast cancer acute October 17, 025 8:50am Iron deficiency anemia due t o chronic blood loss chronic October 17 8:50am Breast cancer acute October 24, 025 8:49am Encounter for chemotherapy management acute October 24, 2024 8 :49am Breast cancer acute November 07 8:53am Encounter for chemotherapy management acute November 07, 2024 8 :53am Breast cancer acute November 21, 2024 8:41am Encounter for chemotherapy management acute November 21, 2024 8:41am Breast cancer acute December 04 025 8:15am Regional lymph node metastas is present acute December 04, 2024 8 :15am Iron deficiency anemia due t o chronic blood loss chronic December 04 8:15am Ovarian cyst acute December 13, 2 025 2:20pm Breast cancer acute December 19, 2024 8:44am Encounter for chemotherapy management acute December 19, 2024 8:44am Regional lymph node metastas is present acute December 19, 2024 8:44am Transaminitis acute December 19, 2024 8:44am Iron deficiency anemia due t o chronic blood loss chronic December 19 8:44am Breast cancer acute December 26, 2024 7:33am Encounter for chemotherapy management acute December 26, 2024 7:33am Regional lymph node metastas is present acute December 26, 2024 7:33am Transaminitis acute December 26, 2024 7:33am Iron deficiency anemia due t o chronic blood loss chronic December 26 7:33am Breast cancer acute January 02, 2025 8:27am Encounter for chemotherapy management acute January 02, 2025 8:27am Regional lymph node metastas is present acute January 02, 2025 8:27am Transaminitis acute January 02, 2025 8:27am Iron deficiency anemia due t o chronic blood loss chronic January 02 8:27am [facility] Work Phone: [phone]) 189-982204-09-2025 History and physical note [facility] Medical Records Department [address] [place] [id number] History & Physical Exam 09/11/24 1057 MR#: [id number] Acct: [id number] Name: SUSAN LIN Rep #:[id number] : 1975 48 From: Gareth Mcdaniel MD PCP: TATE Genao [place] [facility] [place] [id number] HPI - General General Date of Admission: 09/11/24 Date of Service: 09/11/24 Chief Complaint: Breast cancer HPI Narrative SUSAN LIN, is a 48 F who presents for reexcision lumpectomy for wider margins. She was recently diagnosed with breast cancer. Lumpectomy was performed however pathology indicated DCIS to be very close to the lateral margin. She presents today for reexcision to ensure sufficient margins prior tobeginning chemo and radiation [facility] Medical History Wears glasses Low iron Restless leg syndrome History of migraine Non-smoker Iron deficiency anemia due to chronic blood loss Breast cancer Abnormal mammogram of left breast Home Medications ?Medication ?Instructions ?Recorded ?Last Taken ?Type ferrous fumarate 325 mg (106 mg 325 mg PO QDAY 5 Unknown History iron) tablet ascorbic acid (vitamin C) 500 mg 500 mg PO DAILY 08/01 Unknown History tablet (C-500) cholecalciferol (vitamin D3) 25 25 mcg PO DAILY Unknown History mcg (1,000 unit) capsule (Vitamin D3) Allergy/AdvReac Type Severity Reaction Status Date / Time No Known Allergies Allergy Verified 09/11/24 10:34 Family History Mother CVA (cerebral vascular accident) Surgical History Status post left breast lumpectomy History of Social History Smoking Status: Never smoker alcohol intake: never substance use type: does not use Vital Signs Vital Signs Vital Signs: 09/11/24 10:36 09/11/24 10:36 Temperature 98.1 F Temperature Source Temporal Pulse Rate 78 Respiratory Rate 18 Respiratory Pattern Normal Blood Pressure 146/81 H Blood Pressure Mean 102 Blood Pressure Source Monitor Blood Pressure Position Sitting Blood Pressure Location Right Arm Pulse Ox 100 Oxygen Delivery Method Room Air Weight Weight: 149 lb 14.629 oz Body Mass Index (BMI) 22.1 Physical Exam Const alert and oriented x3 Results Lab / Micro Data Labs: Laboratory Results - last 24 hr 09/11/24 10:10: Urine Test Negative Assessment & Plan Assessment/Plan (1) Breast cancer: QUALIFIERS: Breast location: unspecified site of breast Estrogen receptor status: positive Patient sex: female Laterality: left Qualified Code(s): C50.912 - Malignant neoplasm of unspecified site of left female breast;Z17.0 - Estrogen receptor positive status [ER+] PLAN: Plan The patient is a 48-year-old female with breast cancer. She presents today for reexcision of her lateral margin to ensure sufficient margins as DCIS was noted to be at or very close to this lateral margin. We discussed the details of the planned surgery in the office. She wishes to proceed. Surgerywill take place today 09/11/24 1058 Cosigner Signature (if applicable): CC: Dr. Gareth Mcdaniel MD; TATE Genao~ Signed [facility]04-09-20[facility] Consult note [facility] Medical Records Department [address] [place] [address] Pre-Anesthesia Evaluation 09/11/24 1010 MR#: [id number] Acct: [id number] Name: SUSAN LIN Rep #:[id number] : 1975 48 From: Yovany Rios MD PCP: TATE Genao [place] [facility] [place] C Location: [place] [address] ASA Classification* ASA Classification ASA Classification: 2 Assessment & Plan Anesthesia* Anesthesia Assessment Anesthesia Assessment: Discussed sedation and/or anesthesia options, risks, benefits, and alternatives with patient/parents/legal guardian/POA. Questions invited. The patient/parents/legal guardian/POA seems to understand and agrees to proceedwith anesthesia plan. Reviewed the physical assessment, medical history, allergy history and patient home medications list prior to surgery/procedure/anesthetic and documented any changes. Performed airway and anesthesia risk assessments. Anesthesia Type Anesthesia Type: General Anesthesia Focused Assessment* Airway Assessment Mouth opens: >3 cm Mallampati Score: II Focused Labs Anesthesia Preop lab: CBC WBC 6.5 K/mm3 (4.4-11.0) 07/08/24 10:20 07/08/24 RBC 5.16 M/mm3 (4.2-5.4) 07/08/24 10:07/08/24 Hgb 11.2 g/dL (12.0-15.0) L 07/08/24 10:20 5 Hct 37.3 % (37-47) 07/08/24 10:20 07/08/24 Plt Count 292 K/mm3 (150-450) 07/08/24 10:20 07/08/24 CHEMISTRY Potassium 4.2 mmol/L (3.5-5.1) 07/08/24 10:20 07/08/24 Sodium 140 mmol/L (136-145) 07/08/24 10:20 07/08/24 BUN 12 mg/dL (7-18) 07/08/24 10:20 07/08/24 Creatinine 0.64 mg/dL (0.55-1.02) 07/08/24 10:20 07/08/24 Glucose 95 mg/dL (74-106) 07/08/24 10:20 07/08/24 COAG Urine Test Negative Negative 08/13/24 09:45 08/13/24 Pre-Assessment Diagnosis/Proposed Procedure Planned Operative Procedure(s): RE-EXCISION BREAST MASS LEFT Anesthesia History Anesthesia History - manager telecom: Anesthesia History - manager telecom Hx Hospitalization No 08/28/24 14:49 Any Problems With Anesthesia No 08/28/24 14:49 Cholinesterase deficiency No 08/28/24 14:49 You/Your Family Experience No 08/28/24 14:49 fever (hyperthermia) with Relationship Recent Exposure to Contagious No 08/13/24 09:57 Disease Does patient have nerve No 08/28/24 14:49 stimulator Patient instructed to have device shut off --Does patient have Pacemaker or ICD? When Was Last Pacemaker Check QUESTION #4 FULL TEXT: You/Your Family Experience fever (hyperthermia) with Anesthesia Last Oral Intake Last Oral intake: Last Oral Intake NPO since Meds taken in AM with sips of water? Meds patient instructed to take am of surgery PONV PONV - manager telecom: PONV - manager telecom Female Yes 08/28/24 14:49 HX of Motion Sickness Yes 08/28/24 14:49 HX of N/V After Surgery No 08/28/24 14:49 Non-Smoker Yes 08/28/24 14:49 Duration of Surgery greater No 08/28/24 14:49 than 60 minutes Number of Risk Factors 3 08/28/24 14:49 PONV Score Moderate Risk 08/28/24 14:49 Height & Weight Height & Weight: Anesthesia: Height & Weight Height 5 ft 9 in 08/26/24 14:33 Respiratory Assessment Respiratory Assessment - manager telecom: Respiratory Tract Infection Hx - manager telecom Hx Respiratory Tract Infection No 08/28/24 14:49 STOP Sleep Apnea STOP Sleep Apnea - manager telecom: STOP Sleep Apnea - manager telecom Hx Hypertension No 08/28/24 14:49 Hx Sleep Apnea No 08/28/24 14:49 CPAP BIPAP Do you snore loudly (louder No 08/28/24 14:49 than talking or can be heard Do you often feel tired/ No 08/28/24 14:49 fatigued/ sleepy during daytime? Has anyone observed you stop No 08/28/24 14:49 breathing during sleep? STOP Results Negative 08/28/24 14:49 QUESTION #5 FULL TEXT : Do you snore loudly (louder than talking or can be heard through closeddoors)? 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 Specify any problems Hx of Preganancy in last 3 No 08/28/24 14:49 Months Nurse Filling Out Transfusion DSCHRIBER 08/28/24 14:49 & Questions: Date: 08/28/24 08/28/24 14:49 Time: 14:50 08/28/24 14:49 Patient unable to answer at this time (ie. confused, unrespo /Reproduction History /Reproductive History - manager telecom: /Reproductive Hx- manager telecom Hx Now Gestational Age (in weeks): EDC: Hx Hx Para Hx Section SAB No 08/28/24 14:49 PFSH Medical History Wears glasses Low iron Restless leg syndrome History of migraine Non-smoker Iron deficiency anemia due to chronic blood loss Breast cancer Abnormal mammogram of left breast Home Medications ?Medication ?Instructions ?Recorded ?Last Taken ?Type ferrous fumarate 325 mg (106 mg 325 mg PO QDAY 02/04/2 5 Unknown History iron) tablet ascorbic acid (vitamin C) 500 mg 500 mg PO DAILY 08/01 Unknown History tablet (C-500) cholecalciferol (vitamin D3) 25 25 mcg PO DAILY Unknown History mcg (1,000 unit) capsule (Vitamin D3) Allergy/AdvReac Type Severity Reaction Status Date / Time No Known Allergies Allergy Verified 08/26/24 14:35 Family History Mother CVA (cerebral vascular accident) Surgical History Status post left breast lumpectomy History of Social History Smoking Status: Never smoker alcohol intake: never substance use type: does not use Review of Systems (Anesthesia) ROS Narrative System reviewed and no additional complaints, except as documented. 09/11/24 1011 > Date _ Yovany Rios MD Cosigner Signature: Date CC: ~ Signed [facility]03-24-2025 Evaluation note* Diagnosis Onset Date Resolution Status Admit Date Breast cancer acute August 26, 2024 2:24pm Iron deficiency anemia due t o chronic blood loss chronic August 26, 2 025 2:24pm Breast cancer acute September 11, 2024 9:50am Breast cancer acute September 24, 2024 9:32am Breast cancer acute September 26, 2024 10:48am Encounter for education acute A pril 2024 10:48am Iron deficiency anemia due t o chronic blood loss chronic September 26, 2 025 10:48am Breast cancer acute October 10 8:07am Iron deficiency anemia due t o chronic blood loss chronic October 10, 2024 8:07am Breast cancer acute October 17, 2 025 8:50am Iron deficiency anemia due t o chronic blood loss chronic October 17 8:50am Breast cancer acute October 24 025 8:49am Encounter for chemotherapy management acute October 24, 2024 8 :49am Breast cancer acute November 07 8:53am Encounter for chemotherapy management acute November 07, 2024 8 :53am Breast cancer acute November 21, 2024 8:41am Encounter for chemotherapy management acute November 21, 2024 8:41am Breast cancer acute December 04 8:15am Regional lymph node metastas is present acute December 04, 2024 8 :15am Iron deficiency anemia due t o chronic blood loss chronic December 04 8:15am Ovarian cyst acute December 13 2:20pm Breast cancer acute December 19, 2024 8:44am Encounter for chemotherapy management acute December 19, 2024 8:44am Regional lymph node metastas is present acute December 19, 2024 8:44am Transaminitis acute December 19, 2024 8:44am Iron deficiency anemia due t o chronic blood loss chronic December 19 8:44am [facility] Work Phone: 1(377) 582-733003-18-2025 Evaluation note* Diagnosis Onset Date Resolution Status Admit Date Breast cancer acute August 20, 2024 2:45pm Breast cancer acute August 26, 2024 2:24pm Iron deficiency anemia due t o chronic blood loss chronic August 26 025 2:24pm Breast cancer acute September 11, 2024 9:50am Breast cancer acute September 24, 2024 9:32am Breast cancer acute September 26, 2024 10:48am Encounter for education acute A pri 2024 10:48am Iron deficiency anemia due t o chronic blood loss chronic September 26 025 10:48am Breast cancer acute October 10 8:07am Iron deficiency anemia due t o chronic blood loss chronic October 10, 2024 8:07am Breast cancer acute October 17 025 8:50am Iron deficiency anemia due t o chronic blood loss chronic October 17 8:50am Breast cancer acute October 24 025 8:49am Encounter for chemotherapy management acute October 24, 2024 8 :49am Breast cancer acute November 07 025 8:53am Encounter for chemotherapy management acute November 07, 2024 8 :53am Breast cancer acute November 21, 2024 8:41am Encounter for chemotherapy management acute November 21, 2024 8:41am Breast cancer acute December 04 8:15am Regional lymph node metastas is present acute December 04, 2024 8 :15am Iron deficiency anemia due t o chronic blood loss chronic December 04 8:15am [facility] Work Phone: 1(101) 760-111603-11-2025 Consult note Author Paolo Espinoza [facility] Note Date/Time August 13, 2024 5:1 7pm [facility] Medical Records Department [address] [place] [address] Anesthesia Postop Eval I 08/13/241715 MR#: [id number] Acct: [id number] Name: SUSAN LIN Rep #:[id number] : 1975 48 From: Paolo bell CRNA PCP: TATE Genao [place] [facility] [place] C Location: [place] [address] Anesthesia: Postop Eval I Current Vital Signs Temperature: 98.5 F Pulse Rate: 100 Blood Pressure: 124/68 Respiratory Rate: 18 Pulse Ox: 98 Oxygen Delivery Method: Room Air Assessment Airway patent: Yes Spontaneous unlabored respirations: Yes Mental status: Awake nausea: No Vomiting: No Anesthesia Complication: No Fluid Hydration Crystalloid volume administer (ml): 1,900 Total IV fluid infused: 1,900 Progress Note Anesthesia document: Postop Eval 1 completed: Yes 08/13/241716 <Electronically signed by Paolo matthews CRNA> Date _ Paolo Espinoza CRNA Cosigner Signature: Date CC: ~ Signed [facility] Work Phone: 1(462) 955-267903-11-2025 Discharge summary Author Gareth Mcdaniel [facility] Note Date/Time August 13, 2024 6:1 7pm [facility] Medical Records Department [address] [place] [address] Instructions for Home/Discharge Instructions 08/13/24 1703 MR#: [id number] Acct: [id number] Name: SUSAN LIN Rep #:[id number] : 1975 48 From: Gareth Mcdaniel MD PCP: TATE Genao [place] [facility] [place] Instructions Diet Discharge Diet: Light diet - advance as tolerated Activity Discharge Activity: Return to Normal Activity and May Shower May shower in (days): 1 Ice area for (Minutes): 30 Dressing / Incision Call your doctor if your incision/area has: Continuous Slow Oozing, Sudden Increased Bleeding, Increased Pain/ Swelling, Increased Redness, Foul Smelling Discharge and Swelling at the incision site Call your doctor if you observe: Fever of 101 or Higher Cleanse incision/area with: Soap & Water Additional Dressing/Incision Instructions:: Okay to remove Alejandro wrap and gauze prior to first shower. Recommend sports bra or Alejandro wrap for compression. Follow Up Care Please Follow Up With: Gareth Mcdaniel MD When: 1 week. Please call office to schedule appointment. Test Results: Test results from this visit will be discussed in further detail at your follow- up appointment, if applicable. Discharge Plan Admission Primary Reason for Your Visit: Left breast lumpectomy Attending Provider: Gareth Mcdaniel Primary Care Provider: Romelia Martin Instructions Print Language: Greek Discharge Orders/Prescriptions Prescriptions: New hydrocodone-acetaminophen 5-325 mg tablet 1 tab PO Q8H PRN (Reason: pain) 4 Days Qty: 10 0RF Continued ferrous fumarate 325 mg (106 mg iron) tablet 325 mg PO QDAY ascorbic acid (vitamin C) [C-500] 500 mg tablet 500 mg PO DAILY cholecalciferol (vitamin D3) [Vitamin D3] 25 mcg (1,000 unit) capsule 25 mcg PO DAILY Referrals / Follow Up: Romelia Martin PA [Primary Care Provider] - Disposition Disposition (needs filled in before D/C Order can be placed): Home, Self Care 08/13/241816<Electronically signed by Gareth Mcdaniel MD>Gareth Mcdaniel MD CC: TATE Genao ~ Signed [facility] Work Phone: 1(750) 377-755903-11-2025 Consult note [facility] Medical Records Department [address] [place] [address] Anesthesia Postop Eval II 08/13/24 1839 MR#: [id number] Acct: [id number] Name: SUSAN LIN Rep #:[id number] : 1975 48 From: Marc Griffith MD PCP: TATE Genao [place] [facility] [place] C Location: [place] [address] Anesthesia Postop Eval I Sum Postop Eval Completion status Anesthesia document: Postop Eval 1 completed: Yes Anesthesia Postop Eval I Summary Anesthesia Postop Eval I Summary: Anesthesia Postop Eval I: Assessment Summary Airway patent Yes 08/13/24 17:17 [email or web address] Spontaneous unlabored Yes 08/13/24 17:17 [email or web address] respirations Mental status Awake 08/13/24 17:17 [email or web address] nausea No 08/13/24 17:17 [email or web address] Vomiting No 08/13/24 17:17 [email or web address] Anesthesia Postop Eval I: Fluid Summary Crystalloid volume administer 1,900 08/13/24 17:17 [email or web address] (ml) Colloids volume administered ( ml) Blood Product volume administered (ml) Total IV fluid infused 1,900 08/13/24 17:17 [email or web address] Anesthesia Postop Eval I: Summary Notes Anesthesia Complication No 08/13/24 17:17 [email or web address] Anesthesia Complication Comment: Post-operative progress note Anesthesia: Postop Eval II Evaluation Mental status: Awake Pain Level: 0 nausea: No Vomiting: No Complications Anesthesia Complication: No 08/13/24 1840 MD> Date _ Marc Griffith MD Cosigner Signature: Date CC: ~ Signed [facility]03-11-2025 Discharge summary [facility] Medical Records Department [address] [place] [address] Instructions for Home/Discharge Instructions 08/13/24 1703 MR#: [id number] Acct: [id number] Name: SUSAN LIN Rep #:[id number] : 1975 48 From: Gareth Mcdaniel MD PCP: TATE Genao [place] [facility] [place] Instructions Diet Discharge Diet: Light diet - advance as tolerated Activity Discharge Activity: Return to Normal Activity and May Shower May shower in (days): 1 Ice area for (Minutes): 30 Dressing / Incision Call your doctor if your incision/area has: Continuous Slow Oozing, Sudden Increased Bleeding, Increased Pain/ Swelling, Increased Redness, Foul Smelling Discharge and Swelling at the incision site Call your doctor if you observe: Fever of 101 or Higher Cleanse incision/area with: Soap & Water Additional Dressing/Incision Instructions:: Okay to remove Alejandro wrap and gauze prior to first shower. Recommend sports bra or Alejandro wrap for compression. Follow Up Care Please Follow Up With: Gareth Mcdaniel MD When: 1 week. Please call office to schedule appointment. Test Results: Test results from this visit will be discussed in further detail at your follow- up appointment, if applicable. Discharge Plan Admission Primary Reason for Your Visit: Left breast lumpectomy Attending Provider: Gareth Mcdaniel Primary Care Provider: Romelia Martin Instructions Print Language: Greek Discharge Orders/Prescriptions Prescriptions: New hydrocodone-acetaminophen 5-325 mg tablet 1 tab PO Q8H PRN (Reason: pain) 4 Days Qty: 10 0RF Continued ferrous fumarate 325 mg (106 mg iron) tablet 325 mg PO QDAY ascorbic acid (vitamin C) [C-500] 500 mg tablet 500 mg PO DAILY cholecalciferol (vitamin D3) [Vitamin D3] 25 mcg (1,000 unit) capsule 25 mcg PO DAILY Referrals / Follow Up: Romelia Martin PA [Primary Care Provider] - Disposition Disposition (needs filled in before D/C Order can be placed): Home, Self Care 08/13/24 1817Gareth Mcdaniel MD CC: TATE Genao ~ Signed [facility]03-11-2025 Procedure note [facility] Medical Records Department [address] [place] [address] Operative Report 08/13/24 1747 MR#: [id number] Acct: [id number] Name: SUSAN LIN Rep #:[id number] : 1975 48 From: Gareth Mcdaniel MD PCP: TATE Genao [place] [facility] [place] [address] Problems Associated Problem List Diagnoses (1) Breast cancer: Oncology: Peyton Requirements . Oncology surgical intervention performed: Axillary Lymph Node Dissection for Breast Cancer performed Axillary Lymph - Breast Cancer: Synoptic Portion: Element Response Options Operation performed with curative intent. Yes Resection was performed within the boundaries of the axillary vein, chest wall (serratus anterior),and latissimus dorsi. Yes Nerves identified and preserved during dissection (select all that apply) Long thoracic nerve; Thoracodorsal nerve; Branches of the intercostobrachial nerves Level III nodes were removed. Yes Wilkinson Node Biopsy for Breast Cancer performed Wilkinson Node Bx - Breast Cancer: Synoptic Portion: Element Response Options Operation performed with curative intent. Yes Tracer(s) used to identify sentinel nodes in the upfront surgery (non- neoadjuvant) setting (select all that apply). Dye; Radioactive tracer Tracer(s) used to identify sentinel nodes in the neoadjuvant setting (select allthat apply). N/A. All nodes (colored or non-colored) present at the end of a dye-filled lymphatic channel were removed. Yes All significantly radioactive nodes were removed. Yes All palpably suspicious nodes were removed. Yes Biopsy-proven positive nodes marked with clips prior to chemotherapy were identified and removed. Yes Multi Select Codes Integumentary Integumentary CPT Codes: 31060 Perq dev breast 1st [place] imag [place] 8[address]33 Partial mastectomy Respiratory/Cardiovascular Resp/Cardiovascular CPT Codes: 90592 Insert tunneled cv cath, 92323 Biopsy/removal lymph nodes [place] 93838 Ra tracer id of sentinl node Operative Report (Standard) Operative Information Date of Procedure: 08/13/24 Pre-Operative Diagnosis: Left breast cancer Post-Operative Diagnosis: Left breast cancer Surgery/Procedure Performed: 1. Right subclavian Mediport placement with C arm. 2. Left breast wire localized lumpectomy 3. Ultrasound-guided localization wire placement in left axilla 4. Left axillary sentinel lymph node biopsy 5. Left axillary lymph node dissection. tap puller: Yes Real Estate Paralegal: Karen Richards Tasks completed by assistant product manager: Closing and Retracting Additional hotel assistant manager?: Yes Additional Parts Runner #2: Angel Bernardo Tasks completed by hotel assistant manager #2: Other Additional hotel assistant manager?: No Type of Anesthesia: General and Local RN Documented Start/Stop Times: Operation Date: 08/13/24 12:00 Case Time Into Pre-Op 08/13/24 09:44 Anesthesia Start 08/13/24 12:29 Into Room 08/13/24 12:29 Procedure Start 08/13/24 12:56 Procedure End 08/13/24 16:48 Anesthesia End 08/13/24 16:58 Out of Room 08/13/24 16:58 Into Recovery 08/13/24 17:00 Procedure Start Time: 12:56 Procedure Stop Time: 16:48 Select all DRAINS/GRAFTS/IMPLANTS that apply: Implanted device Implanted device details: 8 Sami PowerPort Special Medications: 2 g Ancef IV Estimated Blood Loss: 30 mL Specimen collected: Yes Description of specimen(s) removed: 1. Left breast lumpectomy specimen 2. New anterior margin of the left breast lumpectomy 3. Left axillary sentinel lymph node biopsy #1 4. Left axillary sentinel lymph node biopsy #2 5. Left axillary contents Description of surgery: The patient is a 48-year-old female who was recently discovered with left breastcancer. This was discovered as a palpable mass developed. This was biopsied aswell as a suspicious lymph node. Both were consistent with breast cancer. After extensive workup, surgical options were discussed and she wished to proceed with lumpectomy and axillary node sampling/dissection. We discussed thedetails of theplanned procedure and she wished to proceed. She will likely need chemotherapy and she requested that Mediport be placed at the time of the surgery as well. Patient was brought to the operating room today following informed consent. Preoperative antibiotics were given and a timeout was performed. Earlier in theday Lymphoseek radioactive tracer was injected into the left periareolar area. A stereotactic wire was placed earlier in the day in radiology aswell. A wire was attempted to be placed in the left axilla in radiology but was unable to be performed due to its location. Patient was placed supine on the operative tablewith arms outstretched on arm boards. A general endotracheal anesthesia was induced. Once adequately sedated the right side of the neck and chest were prepped and draped in the usual sterile manner for placement of the right-sided Mediport. An axillary roll was placed between her shoulder blades. Local anesthetic was then injected into the right periclavicular area. Using the supplied needle and syringe, the right subclavian vein was cannulated. The blood return was a dark red venous appearing blood return. Guidewire was then threaded through the aperture and the needle and secured to the drapes. C-arm was brought in and confirmed good positioning of the wire. The subcutaneous pocket was then created by injecting local anesthetic and then using a #15 bladeto make about a 2-1/2 to 3 cm incision just below the entry point of the guidewire. A subcutaneous pocket was created using Bovie electrocautery. Another small in cision was made at the entry point of the guidewire. The Mediport tubing was connected to the tunneler and this was tunneled into the larger incision and up and out through the smaller incision. The tubing was cutto about 19 cm. It was attached to the port hub. The hub was then affixed to the chestwall in the pocket using Prolene suture x 2. This fit nicely. The dilator and tear-away sheath werethen threaded over the guidewire. This was performed and advanced under C arm. The guidewire and dilator were then removedthus leaving the sheath in place. The free end of the tubing was then threaded down the sheath. The sheath was then extracted. The port was tested using injectable saline. It sonam and flushed easily. C-arm was then brought into confirm good positioning of the port and tubing. The port was then flushed with heparin. The incision overlying the hub was then closed with 3-0 Vicryl and 4-0Vicryl. 4-0 Vicryl was also used to close the smaller incision as well. Skin glue was applied as dressing along with a sterile 2 x 2 and a large Tegaderm. Apostprocedure chest x-ray was perfo rmed. The patient was then reprepped and draped for the left breast portion of the surgery. Before doing the full prep, thepreviously biopsied left axillary lymph node that was suspicious and positive, was localized under ultrasound using a Kopan's needle/wire. This was performed without incident. The left chest, axilla and entire left arm were then prepped and draped in the usual sterile manner.The left breast lumpectomy was performed first. An ellipse incision was made around the entry pointof the guidewire. Bovie electrocautery was then used dissect down through subtendinous tissues. Themass seemed to be somewhat close to the overlying skin. Very careful dissection was performed to try to stay as close as possible to the skin anteriorly. The specimen was eventually excised. It was oriented using markingstitches. These marking sutures were such that a long stitch johnson the lateral aspect, and a shorter stitch johnson the more superior aspect. The specimen once removed was sent to radiology and confirmed clip and wire placement. The specimen was then sent to pathology for evaluation. Pathologist stated that theanterior margin seemed very close and potentially even grossly positive. At this point I did go back in and remove some additional subcutaneous tissue anteriorly. I stated as close to the skin as possible. There really was not much additional subcutaneous tissue anteriorly below the skin. This tissue was sent as new anterior margin and was sent for permanent section to pathology. The wound was then copiously irrigated. Hemostasis was achieved using electrocautery. We then turned our attention to the left axilla. An incision was made just below the hairbearing area in the left axilla. Bovie electrocautery was then used dissect down through subcutaneous tissues. The Kopan's wire was able to be traced down to the left axilla. Neoprobe was also utilized, and 2 sentinel lymph nodes which were both blue were located near the wire. The first enlarged lymph node was excised as sentinel lymph node 1. Thiswas x-rayed and did confirm the clip from the previous biopsy. The sentinel lymph node #2 was then removed as well. Both of these were sent to pathology. Both were positive on frozen section. No additional sentinel lymph nodes were encountered as no additionallymph nodes were blue or radioactive. A complete left axillary node dissection was performed. Most of the other lymph node seemsto be of more normal size and appearance. Hemostasis was achieved. At this point we asked Dr. Bernardo to come evaluate the axilla for evaluation of a lymphovascular bypass to decrease chances of developing lymphedema. He will dictate his portion of the evaluation. It was eventually noted that no lymphatic leakage was readily apparent with injection of dye and so lymphovascular bypass was not indicated. He did assist with portion of the axillary dissection as well. Again he will dictate his note separately. Finally, the wounds were again irrigated and hemostasis was re confirmed. Both incisions wereclosed in a subdermal layer using 3-0 Vicryl. 4-0 Vicryl was then used to closethe skin. Dermabond was also applied. 4 x 4 fluffs and an Alejandro wrap were then applied. She was awakened from anesthesia and taken to recovery in good condition. A BANK ANALYST was utilized as a assistant toddler teacher. Her role included assistance with positioning, retraction, and incision closure Surgical Findings: See description of surgery Complications Complications: No Admit VTE Documentation VTE Present on Admission: No VTE Mechan Device Prophylaxis: SCD's VTE Pharm Prophylaxis ordered?: No Reason prophylaxis not ordered: Treatment Not Indicated 08/13/241816 Cosigner Signature (if applicable): CC: Dr. Gareth Mcdaniel MD; TATE Genao~ Signed [facility]03-11-2025 Radiology Diagnostic study note [facility] Imaging Services [address] [place] [id number] CXR for Line Placement MR#: [id number] Acct: [id number] Name: SUSAN LIN Rep #: [id number] : 1975 F 48 From: Solomon Zaragoza MD PCP: TATE Genao Status: [facility] Study:CXR for Line Placement Date of Exam: 08/13/24 Exam# [id number] Ordering Dr: St abdias Mcdaniel MD PROCEDURE: CXR FOR LINE PLACEMENT REASON FOR EXAM: NEW PORT TECHNIQUE: Frontal view(s) of the chest. COMPARISON: Chest x-ray dated 08/13/2024. FINDINGS: Right chest MediPort is present. The cardiac silhouette is stable in size. No focal infiltrate or consolidation is seen within the lungs. There are no acute osseous abnormalities present. Surgical clips seen within the left axillary region, likely from axillary node dissection. Correlate clinically. RAD/CXR for Line Placement IMPRESSION: Right chest MediPort. No definite new infiltrate or consolidation is seen within the lungs. Reading Location: [id number] CC: Dr. Gareth Mcdaniel MD; TATE Genao ~ Mud Car Worker: Signed [facility]03-11-2025 Consult note [facility] Medical Records Department [address] [place] [address] Anesthesia Postop Eval I 08/13/24 1716 MR#: [id number] Acct: [id number] Name: SUSAN LINN Rep #:[id number] : 1975 48 From: Paolo bell GRINDER PCP: TATE Genao [place] [facility] [place] C Location: [place] [address] Anesthesia: Postop Eval I Current Vital Signs Temperature: 98.5 F Pulse Rate: 100 Blood Pressure: 124/68 Respiratory Rate: 18 Pulse Ox: 98 Oxygen Delivery Method: Room Air Assessment Airway patent: Yes Spontaneous unlabored respirations: Yes Mental status: Awake nausea: No Vomiting: No Anesthesia Complication: No Fluid Hydration Crystalloid volume administer (ml): 1,900 Total IV fluid infused: 1,900 Progress Note Anesthesia document: Postop Eval 1 completed: Yes 08/13/241716 ero GRINDER> Date _ Paolo Carriero GRINDER Cosigner Signature: Date CC: ~ Signed [facility]03-11-2025 Procedure note [facility] Medical Records Department [address] [place] [address] Operative Report 08/13/24 1321 MR#: [id number] Acct: [id number] Name: LIN,SUSAN ANTIONE Rep #:[id number] : 1975 48 From: Angel Bernardo MD PCP: TATE Genao [place] [place] Location: AC[facility]-1 Operative Report (Standard) Operative Information Date of Procedure: 08/13/24 Pre-Operative Diagnosis: Left breast cancer with left axillary dissection Post-Operative Diagnosis: Same Surgery/Procedure Performed: 1) No reconstructive surgery required. Physician on standby for possible LVA from (1:30 PM to 3:30 pm, CPT 96009 x 4 Units (Five 30 minute increments)) tap puller: No Type of Anesthesia: General RN Documented Start/Stop Times: Operation Date: 08/13/24 12:00 Case Time Into Pre-Op 08/13/24 09:44 Anesthesia Start 08/13/24 12:29 Into Room 08/13/24 12:29 Procedure Start 08/13/24 12:56 Procedure Start Time: 14:00 Procedure Stop Time: 16:00 Select all DRAINS/GRAFTS/IMPLANTS that apply: None Estimated Blood Loss: none Specimen collected: No Description of surgery: Indications: Susan Lin is a delightful 48-year-old female who on the date of surgery underwent left lumpectomy with lymph node sampling and a full left axillary lymph node dissection of levels 1 and 2 by the general surgery service. Plasticsurgery was called into the room for immediate lymphatic reconstruction. Preoperatively I talked to the patient about the risks, benefits, and alternatives to this procedure, and they agreed to proceed if indicated. PROCEDURE DETAILS I was on standby from 1:30 pm to 3:30 pm for possible lymphovenous bypass to reconstruct the left axillary lymphatics. I was a assistant toddler teacher to Dr. Mcdaniel for a short portion of the left axillary dissection (please see his separate operative dictation for details). A small amount of Lymphazurin was injected intradermally along the medial left arm in the style of reverse axillary mapping. The left arm carefully so as to promote uptake of the Lymphazurin into theleft axilla. There were no obvious transected lymphatics within the wound (no spill of the Lymphazurin was seen) and therefore no targets for reconstruction. Surgical Findings: No targets for lymphatic reconstruction in the left axilla Complications Complications: No 08/13/24 6907 Cosigner Signature (if applicable): CC: Dr. Angel Bernardo MD; Dr. Gareth Mcdaniel MD; TATE Genao~ Signed [facility]03-11-2025 History and physical note Author Angel Bernardo [facility] Note Date/Time August 13, 2024 12: 26pm [facility] Medical Records Department [address] [place] [address] H&P Exam - Surgical 08/13/24 1223 MR#: [id number] Acct: [id number] Name: SUSAN LIN Rep #:[id number] : 1975 48 From: Angel Bernardo MD PCP: TATE Genao [place] [facility] [place] [address]-1 HPI - General General Date of Admission: 08/13/24 Chief Complaint: BREAST cancer HPI Narrative Susan Lin is a delightful 48-year-old female with past medical history of recently diagnosed ER/VA+ left breast cancer which will likely require left axillary lymph node dissection. She recently met with my partner Dr. Florina Hall to discuss breast reconstruction options, and she follows with Dr. Hagen is her breast surgeon. The patient has decided on breast conserving therapywith lumpectomy and radiation. I talked to the patient today about immediate lymphatic reconstruction with lymphovenous anastomoses at the time of axillary dissection. No plan for neoadjuvant chemotherapy at this time. Plan from radiation oncology is radiation to the breast and the left axilla. The patient reports that they do not have any personal or family history of bleeding or clotting disorders. No history of problems with anesthesia. Caprini score 5 for her history of malignancy She has had 2 C sections Current Encounter (DATE OF SURGERY H&P UPDATE): I saw and examined the patient this morning in pre-operative holding. We discussed risks and benefits of today's surgery and they would like to proceed. NO CHANGE in health history since last seen and evaluated. Ready to proceed with surgery. [facility] Medical History Wears glasses Low iron Restless leg syndrome History of migraine Non-smoker Iron deficiency anemia due to chronic blood loss Breast cancer Abnormal mammogram of left breast Home Medications ?Medication ?Instructions ?Recorded ?Last Taken ?Type ferrous fumarate 325 mg (106 mg 325 mg PO QDAY 5 Unknown History iron) tablet ascorbic acid (vitamin C) 500 mg 500 mg PO DAILY 08/01 Unknown History tablet (C-500) cholecalciferol (vitamin D3) 25 25 mcg PO DAILY Unknown History mcg (1,000 unit) capsule (Vitamin D3) Allergy/AdvReac Type Severity Reaction Status Date / Time No Known Allergies Allergy Verified 08/13/24 10:12 Family History Mother CVA (cerebral vascular accident) Surgical History History of Social History Smoking Status: Never smoker alcohol intake: never substance use type: does not use Vital Signs Vital Signs Vital Signs: 08/13/24 09:57 08/13/24 09:57 08/13/24 10:43 Temperature 99.1 F 99.1 F Temperature Source Temporal Pulse Rate 73 73 Respiratory Rate 16 16 Respiratory Pattern Normal Blood Pressure 138/80 H 138/80 H Blood Pressure Mean 99 Blood Pressure Source Monitor Blood Pressure Position Semi-Fowlers Blood Pressure Location Left Arm Pulse Ox 100 100 Oxygen Delivery Method Room Air Room Air Weight Weight: 152 lb 1.903 oz Body Mass Index (BMI) 22.4 Physical Exam Narrative LEFT AXILLA No obvious left axillary lymphadenopathy No baseline LUE swelling/lymphadenopathy s/p wire placement left breast Results Lab / Micro Data Labs: Laboratory Results - last 24 hr 08/13/24 09:45: Urine Test Negative Imaging Radiology Impression Wilkinson Node 08/13/24 10:02 IMPRESSION: Subdermal injection of the radiopharmaceutical. Reading Location: [facility] Assessment & Plan Assessment/Plan (1) Breast cancer: QUALIFIERS: Breast location: unspecified site of breast Estrogen receptor status: positive Patient sex: female Laterality: left Qualified Code(s): C50.912 - Malignant neoplasm of unspecified site of left female breast;Z17.0 - Estrogen receptor positive status [ER+] PLAN: Plan We had an extensive discussion about the risk of developing lymphedema in the months following lymph node sampling. We discussed the varying rates of lymphedema after sentinel node biopsy and after axillary lymph node dissection, which are approximately 6 to 13% and 13 to 65%, respectively. We discussed that studies have shown that patients who had immediate lymphatic reconstruction following axillary dissection (known as LYMPHA) have subsequent lymphedema rates as low as 4% (with lymphedema and rates around 30% in the lymphedema control groups). We discussed conflicting data about immediate lymphatic reconstruction and how more studies need to be performed; however, I also offered her my opinion that I believe it is oncologically safe and effective. Studies have demonstrated metastatic disease at 2 years to be similar between reconstructed and non-reconstructed cohorts (about 12% rate of metastatic disease in both), which I discussed with the patient. After our discussion, she would like to proceed with left immediate lymphatic reconstruction if she requires a left lymph node dissection at the time of the mastectomy and lymph node sampling. We discussed extensively the risks of increased operative time and the risks of anesthesia including strokes (from ischemia/hypovolemia). We discussed the risks of blood clots from prolonged immobilization/general anesthesia. INTERVAL H&P PLAN, DATE OF SURGERY: I spoke with the patient again about the above noted risks and benefits of possible lymphatic reconstruction with immediate lymphovenous bypass. We talked about oncologic safety, risks of anesthesia (prolonging the OR time), as well as post-operative compression and restrictions. She elected to proceed. We will proceed with surgery today. 08/13/24 1226 <Electronically signed by Angel Bernardo MD> Cosigner Signature (if applicable): CC: Dr. Angel Bernardo MD; TATE Genao~ Signed [facility] Work Phone: 1(911) 743-511303-11-2025 History and physical note Author Gareth Mcdaniel [facility] Note Date/Time August 13, 2024 12: 13pm [facility] Medical Records Department [address] [place] [address] History & Physical Exam 08/13/24 1206 MR#: [id number] Acct: [id number] Name: SUSAN LIN Rep #:[id number] : 1975 48 From: Gareth Mcdaniel MD PCP: TATE Genao Status:[facility] Location: [address] - General General Date of Admission: 08/13/24 Date of Service: 08/13/24 Chief Complaint: BREAST cancer HPI Narrative SUSAN LIN, is a 48 F who presents for left breast lumpectomy and axillary disection/SLN bx along with port placement patient recently diagnosed with left breast cancer [facility] Medical History Wears glasses Low iron Restless leg syndrome History of migraine Non-smoker Iron deficiency anemia due to chronic blood loss Breast cancer Abnormal mammogram of left breast Home Medications ?Medication ?Instructions ?Recorded ?Last Taken ?Type ferrous fumarate 325 mg (106 mg 325 mg PO QDAY 5 Unknown History iron) tablet ascorbic acid (vitamin C) 500 mg 500 mg PO DAILY 08/01 Unknown History tablet (C-500) cholecalciferol (vitamin D3) 25 25 mcg PO DAILY Unknown History mcg (1,000 unit) capsule (Vitamin D3) Allergy/AdvReac Type Severity Reaction Status Date / Time No Known Allergies Allergy Verified 08/13/24 10:12 Family History Mother CVA (cerebral vascular accident) Surgical History History of Social History Smoking Status: Never smoker alcohol intake: never substance use type: does not use Vital Signs Vital Signs Vital Signs: 08/13/24 09:57 08/13/24 09:57 08/13/24 10:43 Temperature 99.1 F 99.1 F Temperature Source Temporal Pulse Rate 73 73 Respiratory Rate 16 16 Respiratory Pattern Normal Blood Pressure 138/80 H 138/80 H Blood Pressure Mean 99 Blood Pressure Source Monitor Blood Pressure Position Semi-Fowlers Blood Pressure Location Left Arm Pulse Ox 100 100 Oxygen Delivery Method Room Air Room Air Weight Weight: 152 lb 1.903 oz Body Mass Index (BMI) 22.4 Results Lab / Micro Data Labs: Laboratory Results - last 24 hr 08/13/24 09:45: Urine Test Negative Imaging Radiology Impression Wilkinson Node 08/13/24 10:02 IMPRESSION: Subdermal injection of the radiopharmaceutical. Reading Location: [place] [address] Assessment & Plan Assessment/Plan (1) Breast cancer: QUALIFIERS: Breast location: unspecified site of breast Estrogen receptor status: positive Patient sex: female Laterality: left Qualified Code(s): C50.912 - Malignant neoplasm of unspecified site of left female breast;Z17.0 - Estrogen receptor positive status [ER+] PLAN: Plan left breast lumpectomy and SLN Bx / axillary disection along w port placement today 08/13/24 1213 <Electronically signed by Graeth Mcdaniel MD> Cosigner Signature (if applicable): CC: Dr. Gareth Mcdaniel MD; TATE Genao~ Signed [facility] Work Phone: 1(909) 442-527903-11-2025 Consult note Author Marc [facility] Note Date/Time August 13, 2024 10: 47am [facility] Medical Records Department [address] [place] [address] Pre-Anesthesia Evaluation 08/13/24 1035 MR#: [id number] Acct: [id number] Name: SUSAN LIN Rep #:[id number] : 1975 48 From: Marc Griffith MD PCP: TATE Genao [place] [facility] [place] Race: C Location: [place] [address] ASA Classification* ASA Classification ASA Classification: 2 Assessment & Plan Anesthesia* Anesthesia Assessment Anesthesia Assessment: Discussed sedation and/or anesthesia options, risks, benefits, and alternatives with patient/parents/legal guardian/POA. Questions invited. The patient/parents/legal guardian/POA seems to understand and agrees to proceedwith anesthesia plan. Reviewed the physical assessment, medical history, allergy history and patient home medications list prior to surgery/procedure/anesthetic and documented any changes. Performed airway and anesthesia risk assessments. Please have background propofol for PONV prevention Anesthesia Type Anesthesia Type: General History Source History Obtained from:: Patient and Chart Anesthesia Focused Assessment* Temperature: 99.1 F Pulse Rate: 73 Blood Pressure: 138/80 Respiratory Rate: 16 Pulse Ox: 100 Oxygen Delivery Method: Room Air Airway Assessment Mouth opens: >3 cm Mallampati Score: I Teeth Condition: Intact and Chipped/Broken (front slightly chipped) Neck Range of motion (ROM): Full ROM Focused Labs Anesthesia Preop lab: CBC WBC 6.5 K/mm3 (4.4-11.0) 07/08/24 10:20 07/08/24 RBC 5.16 M/mm3 (4.2-5.4) 07/08/24 10:20 07/08/24 Hgb 11.2 g/dL (12.0-15.0) L 07/08/24 10:20 5 Hct 37.3 % (37-47) 07/08/24 10:20 07/08/24 Plt Count 292 K/mm3 (150-450) 07/08/24 10:20 07/08/24 CHEMISTRY Potassium 4.2 mmol/L (3.5-5.1) 07/08/24 10:20 07/08/24 Sodium 140 mmol/L (136-145) 07/08/24 10:20 07/08/24 BUN 12 mg/dL (7-18) 07/08/24 10:20 07/08/24 Creatinine 0.64 mg/dL (0.55-1.02) 07/08/24 10:20 07/08/24 Glucose 95 mg/dL (74-106) 07/08/24 10:20 07/08/24 COAG Urine Test Negative Negative 08/13/24 09:45 08/13/24 Pre-Assessment Diagnosis/Proposed Procedure Planned Operative Procedure(s): LEFT BREAST STEREOTACTIC WIRE LOC LUMPECTOMY X2 SLN BIOPSY AXILLARY DISECTION WITH RIGHT PORT INSERTION PER DR MCDANIEL LEFT AXILLARY IMMEDIATED LYMPHATIC RECONSTRUCTION IWTH LYPHOVENOUS ANASTOMOSIS PER DR BERNARDO Anesthesia History Anesthesia History - manager telecom: Anesthesia History - manager telecom Hx Hospitalization No 08/01/24 13:18 Any Problems With Anesthesia No 08/01/24 13:18 Cholinesterase deficiency No 08/01/24 13:18 You/Your Family Experience No 08/01/24 13:18 fever (hyperthermia) with Relationship Recent Exposure to Contagious No 08/13/24 09:57 Disease Does patient have nerve No 08/01/24 13:18 stimulator Patient instructed to have device shut off --Does patient have Pacemaker No 08/13/24 09:57 or ICD? When Was Last Pacemaker Check QUESTION #4 FULL TEXT: You/Your Family Experience fever (hyperthermia) with Anesthesia Any additional information?: No Last Oral Intake Last Oral intake: Last Oral Intake NPO since 07:00 08/13/24 09:57 Meds taken in AM with sips of No 08/13/24 09:57 water? Meds patient instructed to take am of surgery Any additional information?: No PONV PONV - manager telecom: PONV - manager telecom Female Yes 08/01/24 13:18 HX of Motion Sickness Yes 08/01/24 13:18 HX of N/V After Surgery No 08/01/24 13:18 Non-Smoker Yes 08/01/24 13:18 Duration of Surgery greater Yes 08/01/24 13:18 than 60 minutes Number of Risk Factors 4 08/01/24 13:18 PONV Score Severe Risk 08/01/24 13:18 Any additional information?: No Height & Weight Height & Weight: Anesthesia: Height & Weight Height 5 ft 9 in 08/13/24 09:57 Weight: 69 kg 08/13/24 09:57 Body Mass Index (BMI) 22.4 08/13/24 09:57 Respiratory Assessment Respiratory Assessment - manager telecom: Respiratory Tract Infection Hx - manager telecom Hx Respiratory Tract Infection No 08/01/24 13:18 Any additional information?: No STOP Sleep Apnea STOP Sleep Apnea - manager telecom: STOP Sleep Apnea - manager telecom Hx Hypertension No 08/01/24 13:18 Hx Sleep Apnea No 08/01/24 13:18 CPAP BIPAP Do you snore loudly (louder No 08/01/24 13:18 than talking or can be heard Do you often feel tired/ No 08/01/24 13:18 fatigued/ sleepy during daytime? Has anyone observed you stop No 08/01/24 13:18 breathing during sleep? STOP Results Negative 08/01/24 13:18 QUESTION #5 FULL TEXT : Do you snore loudly (louder than talking or can be heard through closed doors)? Any additional information?: No Tobacco Use History Tobacco Use History - manager telecom: Tobacco Use History - manager telecom Tobacco Use Smoking Status Never smoker 08/01/24 13:18 Hx Tobacco Use No 08/01/24 13:18 Years Smoking Packs Smoked per Day Smoking Cessation Date was within the last 15 years Hx Smoking Cessation Date Hx Smoking Cessation Counseling Any additional information?: No Hematologic Medial History Hematologic Hx - manager telecom: Hematologic Medical Hx - national account director Hx of Blood Transfusion No 08/01/24 13:18 Hx of Transfusion in last 3 No 08/01/24 13:18 Months Date of Last Transfusion (if within last 3 months) Ever experience any problems No 08/01/24 13:18 with transfusion(s)? Specify any problems Hx of Preganancy in last 3 No 08/01/24 13:18 Months Nurse Filling Out Transfusion DSCHRIBER 08/01/24 13:18 & Questions: Date: 08/01/24 08/01/24 13:18 Time: 13:19 08/01/24 13:18 Patient unable to answer at this time (ie. 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: /Reproductive Hx- manager telecom Hx Now No 08/01/24 13:18 Gestational Age (in weeks): EDC: Hx Hx Para Hx Section SAB No 08/01/24 13:18 Any additional information?: No Active Medications Active Medications: Current Medications Generic Name Dose Route Start Last Admin Trade Name Freq PRN Reason Stop Dose Admin Sodium Chloride 1,000 mls @ 15 mls/hr 08/13/24 09:50 IV 08/18/24 23:09 .Q48H [facility] Protocol PFSH Medical History Wears glasses Low iron Restless leg syndrome History of migraine Non-smoker Iron deficiency anemia due to chronic blood loss Breast cancer Abnormal mammogram of left breast Home Medications ?Medication ?Instructions ?Recorded ?Last Taken ?Type ferrous fumarate 325 mg (106 mg 325 mg PO QDAY 5 Unknown History iron) tablet ascorbic acid (vitamin C) 500 mg 500 mg PO DAILY 08/01 Unknown History tablet (C-500) cholecalciferol (vitamin D3) 25 25 mcg PO DAILY Unknown History mcg (1,000 unit) capsule (Vitamin D3) Allergy/AdvReac Type Severity Reaction Status Date / Time No Known Allergies Allergy Verified 08/13/24 10:12 Family History Mother CVA (cerebral vascular accident) Surgical History History of Social History Smoking Status: Never smoker alcohol intake: never substance use type: does not use Review of Systems (Anesthesia) ROS Narrative System reviewed and no additional complaints, except as documented. Physical Exam Const alert, oriented x3 and average body habitus Resp normal respiratory effort, normal air movement and clear to auscultation bilaterally Cardio regular rate, regular rhythm, no murmurs and diaphoretic 08/13/24 1047 <Electronically signed by Marc Griffith MD> Date _ Marc Griffith MD Cosigner Signature: Date CC: ~ Signed [facility] Work Phone: 1(912) 657-789803-11-2025 History and physical note [facility] Medical Records Department [address] [address] H&P Exam - Surgical 08/13/24 1223 MR#: [id number] Acct: [id number] Name: SUSAN LIN Rep #:[id number] : 1975 48 From: Angel Bernardo MD PCP: TATE Genao Status:[facility] Location: [place] [address] HPI - General General Date of Admission: 08/13/24 Chief Complaint: BREAST cancer HPI Narrative Susan Lin is a delightful 48-year-old female with past medical history of recently diagnosed ER/VA+ left breast cancer which will likely require left axillary lymph node dissection. She recently met with my partner Dr. Florina Hall to discuss breast reconstruction options, and she follows withDr. Hagen is her breast surgeon. The patient has decided on breast conserving therapywith lumpectomy and radiation. I talked to the patient today about immediate lymphatic reconstruction with lymphovenous anastomoses at the time of axillary dissection. No plan for neoadjuvant chemotherapy at this time. Plan from radiation oncology is radiation to the breast and the left axilla. The patient reports that they do not have any personal or family history of bleeding or clotting disorders. No history of problems with anesthesia. Caprini score 5 for her history of malignancy She has had 2 C sections Current Encounter (DATE OF SURGERY H&P UPDATE): I saw and examined the patient this morning in pre-operative holding. We discussed risks and benefits of today's surgery and they would like to proceed. NO CHANGE in health history since last seen and evaluated. Ready to proceed with surgery. [facility] Medical History Wears glasses Low iron Restless leg syndrome History of migraine Non-smoker Iron deficiency anemia due to chronic blood loss Breast cancer Abnormal mammogram of left breast Home Medications ?Medication ?Instructions ?Recorded ?Last Taken ?Type ferrous fumarate 325 mg (106 mg 325 mg PO QDAY 5 Unknown History iron) tablet ascorbic acid (vitamin C) 500 mg 500 mg PO DAILY 08/01 Unknown History tablet (C-500) cholecalciferol (vitamin D3) 25 25 mcg PO DAILY Unknown History mcg (1,000 unit) capsule (Vitamin D3) Allergy/AdvReac Type Severity Reaction Status Date / Time No Known Allergies Allergy Verified 08/13/24 10:12 Family History Mother CVA (cerebral vascular accident) Surgical History History of Social History Smoking Status: Never smoker alcohol intake: never substance use type: does not use Vital Signs Vital Signs Vital Signs: 08/13/24 09:57 08/13/24 09:57 08/13/24 10:43 Temperature 99.1 F 99.1 F Temperature Source Temporal Pulse Rate 73 73 Respiratory Rate 16 16 Respiratory Pattern Normal Blood Pressure 138/80 H 138/80 H Blood Pressure Mean 99 Blood Pressure Source Monitor Blood Pressure Position Semi-Fowlers Blood Pressure Location Left Arm Pulse Ox 100 100 Oxygen Delivery Method Room Air Room Air Weight Weight: 152 lb 1.903 oz Body Mass Index (BMI) 22.4 Physical Exam Narrative LEFT AXILLA No obvious left axillary lymphadenopathy No baseline LUE swelling/lymphadenopathy s/p wire placement left breast Results Lab / Micro Data Labs: Laboratory Results - last 24 hr 08/13/24 09:45: Urine Test Negative Imaging Radiology Impression Wilkinson Node 08/13/24 10:02 IMPRESSION: Subdermal injection of the radiopharmaceutical. Reading Location: [facility]-1 Assessment & Plan Assessment/Plan (1) Breast cancer: QUALIFIERS: Breast location: unspecified site of breast Estrogen receptor status: positive Patient sex: female Laterality: left Qualified Code(s): C50.912 - Malignant neoplasm of unspecified site of left female breast;Z17.0 - Estrogen receptor positive status [ER+] PLAN: Plan We had an extensive discussion about the risk of developing lymphedema in the months following lymph node sampling. We discussed the varying rates of lymphedema after sentinel node biopsy and after axillary lymph node dissection, which are approximately 6 to 13% and 13 to 65%, respectively. We discussed that studies have shown that patients who had immediate lymphatic reconstruction following axillary dissection (known as LYMPHA) have subsequent lymphedema rates as low as 4% (with lymphedema and rates around 30% in the lymphedema control groups). We discussed conflicting data about immediate lymphatic reconstruction and how more studies need to be performed; however, I also offered her my op inion that I believe it is oncologically safe and effective. Studies have demonstrated metastatic disease at 2 years to be similar between reconstructed and non-reconstructed cohorts (about 12% rate of metastatic disease in both), which I discussed with the patient. After our discussion, she would like to proceed with left immediate lymphatic reconstruction if sherequires a left lymph node dissection at the time of the mastectomy and lymph node sampling. We discussed extensively the risks of increased operative time and the risks of anesthesia including strokes (from ischemia/hypovolemia). We discussed the risks of blood clots from prolonged immobilization/general anesthesia. INTERVAL H&P PLAN, DATE OF SURGERY: I spoke with the patient again about the above noted risks and benefits of possible lymphatic reconstruction with immediate lymphovenous bypass. We talked about oncologic safety, risks of anesthesia (prolonging the OR time), as well as post-operative compression and restrictions. She elected to proceed. We will proceed with surgery today. 08/13/24 1226 Cosigner Signature (if applicable): CC: Dr. Angel Bernardo MD; TATE Genao~ Signed [facility]03-11-2025 History and physical note [facility] Medical Records Department [address] [place] [address] History & Physical Exam 08/13/24 1206 MR#: [id number] Acct: [id number] Name: SUSAN LIN Rep #:[id number] : 1975 48 From: Gareth Mcdaniel MD PCP: TATE Genao Status:[facility] Location: [place] [address] HPI - General General Date of Admission: 08/13/24 Date of Service: 08/13/24 Chief Complaint: BREAST cancer HPI Narrative SUSAN LIN, is a 48 F who presents for left breast lumpectomy and axillary disection/SLN bx alongwith port placement patient recently diagnosed with left breast cancer [facility] Medical History Wears glasses Low iron Restless leg syndrome History of migraine Non-smoker Iron deficiency anemia due to chronic blood loss Breast cancer Abnormal mammogram of left breast Home Medications ?Medication ?Instructions ?Recorded ?Last Taken ?Type ferrous fumarate 325 mg (106 mg 325 mg PO QDAY 5 Unknown History iron) tablet ascorbic acid (vitamin C) 500 mg 500 mg PO DAILY 08/01 Unknown History tablet (C-500) cholecalciferol (vitamin D3) 25 25 mcg PO DAILY Unknown History mcg (1,000 unit) capsule (Vitamin D3) Allergy/AdvReac Type Severity Reaction Status Date / Time No Known Allergies Allergy Verified 08/13/24 10:12 Family History Mother CVA (cerebral vascular accident) Surgical History History of Social History Smoking Status: Never smoker alcohol intake: never substance use type: does not use Vital Signs Vital Signs Vital Signs: 08/13/24 09:57 08/13/24 09:57 08/13/24 10:43 Temperature 99.1 F 99.1 F Temperature Source Temporal Pulse Rate 73 73 Respiratory Rate 16 16 Respiratory Pattern Normal Blood Pressure 138/80 H 138/80 H Blood Pressure Mean 99 Blood Pressure Source Monitor Blood Pressure Position Semi-Fowlers Blood Pressure Location Left Arm Pulse Ox 100 100 Oxygen Delivery Method Room Air Room Air Weight Weight: 152 lb 1.903 oz Body Mass Index (BMI) 22.4 Results Lab / Micro Data Labs: Laboratory Results - last 24 hr 08/13/24 09:45: Urine Test Negative Imaging Radiology Impression Wilkinson Node 08/13/24 10:02 IMPRESSION: Subdermal injection of the radiopharmaceutical. Reading Location: [facility]-1 Assessment & Plan Assessment/Plan (1) Breast cancer: QUALIFIERS: Breast location: unspecified site of breast Estrogen receptor status: positive Patient sex: female Laterality: left Qualified Code(s): C50.912 - Malignant neoplasm of unspecified site of left female breast;Z17.0 - Estrogen receptor positive status [ER+] PLAN: Plan left breast lumpectomy and SLN Bx / axillary disection along w port placement today 08/13/24 1213 Cosigner Signature (if applicable): CC: Dr. Gareth Mcdaniel MD; TATE Genao~ Signed [facility]03-11-2025 [facility]03-11-2025 Evaluation note* Diagnosis Onset Date Resolution Status Admit Date Breast cancer acute August 13, 2024 9:32am Breast cancer acute August 20, 2024 2:45pm Breast cancer acute August 26, 2024 2:24pm Iron deficiency anemia due t o chronic blood loss chronic August 26, 2 025 2:24pm Breast cancer acute September 11, 2024 9:50am Breast cancer acute September 24, 2024 9:32am Breast cancer acute September 26, 2024 10:48am Encounter for education acute A pril 2024 10:48am Iron deficiency anemia due t o chronic blood loss chronic September 26, 025 10:48am Breast cancer acute October 10 8:07am Iron deficiency anemia due t o chronic blood loss chronic October 10, 2024 8:07am Breast cancer acute October 17, 8:50am Iron deficiency anemia due t o chronic blood loss chronic October 17 8:50am Breast cancer acute October 24, 025 8:49am Encounter for chemotherapy management acute October 24, 2024 8 :49am Breast cancer acute November 07 8:53am Encounter for chemotherapy management acute November 07, 2024 8 :53am Breast cancer acute November 21, 2024 8:41am Encounter for chemotherapy management acute November 21, 2024 8:41am Breast cancer acute December 04, 8:15am Regional lymph node metastas is present acute December 04, 2024 8 :15am Iron deficiency anemia due t o chronic blood loss chronic December 04 8:15am [facility] Work Phone: 1(103) 264-565403-11-2025 Nuclear medicine Diagnostic study note [facility] Imaging Services [address] [place] [id number] Lymph Node Injection Only MR#: [id number] Acct: [id number] Name: SUSAN LIN Rep #: [id number] : 1975 F 48 From: Sherman Walter MD PCP: TATE Genao Status: [facility] Study:Lymph Node Injection Only Date of Exam: 08/13/24 Exam# [id number] Ordering Dr: Mikaela Johnson PA-C PROCEDURE: LYMPH NODE INJECTION ONLY REASON FOR EXAM: BREAST CANCER TECHNIQUE: 570 microcuries of Tilmanocept injected subdermally in the left breast. RADIOPHARMACEUTICAL: 507 microcuries of Tilmanocept COMPARISON: None FINDINGS: Subdermal injection of the radiopharmaceutical. NM/Lymph Node Injection Only IMPRESSION: Subdermal injection of the radiopharmaceutical. Reading Location: [facility]-1 CC: SAUMYA Johnson; Dr. Gareth Mcdaniel MD; TATE Genao ~ [employer]ud [employer] Worker: Signed [facility]03-11-2025 Consult note [facility] Medical Records Department [address] [place] [address] Pre-Anesthesia Evaluation 08/13/24 1035 MR#: [id number] Acct: [id number] Name: SUSAN LIN Rep #:[id number] : 1975 48 From: aMrc Griffith MD PCP: TATE Genao Status:REG SDC Y Race: C Location: [place] [address] ASA Classification* ASA Classification ASA Classification: 2 Assessment & Plan Anesthesia* Anesthesia Assessment Anesthesia Assessment: Discussed sedation and/or anesthesia options, risks, benefits, and alternatives with patient/parents/legal guardian/POA. Questions invited. The patient/parents/legal guardian/POA seems to understand and agrees to proceedwith anesthesia plan. Reviewed the physical assessment, medical history, allergy history and patient home medications list prior to surgery/procedure/anesthetic and documented any changes. Performed airway and anesthesia risk assessments. Please have background propofol for PONV prevention Anesthesia Type Anesthesia Type: General History Source History Obtained from:: Patient and Chart Anesthesia Focused Assessment* Temperature: 99.1 F Pulse Rate: 73 Blood Pressure: 138/80 Respiratory Rate: 16 Pulse Ox: 100 Oxygen Delivery Method: Room Air Airway Assessment Mouth opens: >3 cm Mallampati Score: I Teeth Condition: Intact and Chipped/Broken (front slightly chipped) Neck Range of motion (ROM): Full ROM Focused Labs Anesthesia Preop lab: CBC WBC 6.5 K/mm3 (4.4-11.0) 07/08/24 10:20 07/08/24 RBC 5.16 M/mm3 (4.2-5.4) 07/08/24 10:07/08/24 Hgb 11.2 g/dL (12.0-15.0) L 07/08/24 10:20 5 Hct 37.3 % (37-47) 07/08/24 10:07/08/24 Plt Count 292 K/mm3 (150-450) 07/08/24 10:20 07/08/24 CHEMISTRY Potassium 4.2 mmol/L (3.5-5.1) 07/08/24 10:20 07/08/24 Sodium 140 mmol/L (136-145) 07/08/24 10:20 07/08/24 BUN 12 mg/dL (7-18) 07/08/24 10:20 07/08/24 Creatinine 0.64 mg/dL (0.55-1.02) 07/08/24 10:20 07/08/24 Glucose 95 mg/dL (74-106) 07/08/24 10:20 07/08/24 COAG Urine Test Negative Negative 08/13/24 09:45 08/13/24 Pre-Assessment Diagnosis/Proposed Procedure Planned Operative Procedure(s): LEFT BREAST STEREOTACTIC WIRE LOC LUMPECTOMY X2 SLN BIOPSY AXILLARYDISECTION WITH RIGHT PORT INSERTION PER DR MCDANIEL LEFT AXILLARY IMMEDIATED LYMPHATIC RECONSTRUCTION IWTH LYPHOVENOUS ANASTOMOSIS PER DR BERNARDO Anesthesia History Anesthesia History - manager telecom: Anesthesia History - manager telecom Hx Hospitalization No 08/01/24 13:18 Any Problems With Anesthesia No 08/01/24 13:18 Cholinesterase deficiency No 08/01/24 13:18 You/Your Family Experience No 08/01/24 13:18 fever (hyperthermia) with Relationship Recent Exposure to Contagious No 08/13/24 09:57 Disease Does patient have nerve No 08/01/24 13:18 stimulator Patient instructed to have device shut off --Does patient have Pacemaker No 08/13/24 09:57 or ICD? When Was Last Pacemaker Check QUESTION #4 FULL TEXT: You/Your Family Experience fever (hyperthermia) with Anesthesia Any additional information?: No Last Oral Intake Last Oral intake: Last Oral Intake NPO since 07:00 08/13/24 09:57 Meds taken in AM with sips of No 08/13/24 09:57 water? Meds patient instructed to take am of surgery Any additional information?: No PONV PONV - manager telecom: PONV - manager telecom Female Yes 08/01/24 13:18 HX of Motion Sickness Yes 08/01/24 13:18 HX of N/V After Surgery No 08/01/24 13:18 Non-Smoker Yes 08/01/24 13:18 Duration of Surgery greater Yes 08/01/24 13:18 than 60 minutes Number of Risk Factors 4 08/01/24 13:18 PONV Score Severe Risk 08/01/24 13:18 Any additional information?: No Height & Weight Height & Weight: Anesthesia: Height & Weight Height 5 ft 9 in 08/13/24 09:57 Weight: 69 kg 08/13/24 09:57 Body Mass Index (BMI) 22.4 08/13/24 09:57 Respiratory Assessment Respiratory Assessment - manager telecom: Respiratory Tract Infection Hx - manager telecom Hx Respiratory Tract Infection No 08/01/24 13:18 Any additional information?: No STOP Sleep Apnea STOP Sleep Apnea - manager telecom: STOP Sleep Apnea - manager telecom Hx Hypertension No 08/01/24 13:18 Hx Sleep Apnea No 08/01/24 13:18 CPAP BIPAP Do you snore loudly (louder No 08/01/24 13:18 than talking or can be heard Do you often feel tired/ No 08/01/24 13:18 fatigued/ sleepy during daytime? Has anyone observed you stop No 08/01/24 13:18 breathing during sleep? STOP Results Negative 08/01/24 13:18 QUESTION #5 FULL TEXT : Do you snore loudly (louder than talking or can be heard through closeddoors)? Any additional information?: No Tobacco Use History Tobacco Use History - manager telecom: Tobacco Use History - manager telecom Tobacco Use Smoking Status Never smoker 08/01/24 13:18 Hx Tobacco Use No 08/01/24 13:18 Years Smoking Packs Smoked per Day Smoking Cessation Date was within the last 15 years Hx Smoking Cessation Date Hx Smoking Cessation Counseling Any additional information?: No Hematologic Medial History Hematologic Hx - manager telecom: Hematologic Medical Hx - national account director Hx of Blood Transfusion No 08/01/24 13:18 Hx of Transfusion in last 3 No 08/01/24 13:18 Months Date of Last Transfusion (if within last 3 months) Ever experience any problems No 08/01/24 13:18 with transfusion(s)? Specify any problems Hx of Preganancy in last 3 No 08/01/24 13:18 Months Nurse Filling Out Transfusion DSCHRIBER 08/01/24 13:18 & Questions: Date: 08/01/24 08/01/24 13:18 Time: 13:19 08/01/24 13:18 Patient unable to answer at this time (ie. 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: /Reproductive Hx- manager telecom Hx Now No 08/01/24 13:18 Gestational Age (in weeks): EDC: Hx Hx Para Hx Section SAB No 08/01/24 13:18 Any additional information?: No Active Medications Active Medications: Current Medications Generic Name Dose Route Start Last Admin Trade Name Freq PRN Reason Stop Dose Admin Sodium Chloride 1,000 mls @ 15 mls/hr 08/13/24 09:50 IV 08/18/24 23:09 .Q48H [facility] Protocol [facility] Medical History Wears glasses Low iron Restless leg syndrome History of migraine Non-smoker Iron deficiency anemia due to chronic blood loss Breast cancer Abnormal mammogram of left breast Home Medications ?Medication ?Instructions ?Recorded ?Last Taken ?Type ferrous fumarate 325 mg (106 mg 325 mg PO QDAY 5 Unknown History iron) tablet ascorbic acid (vitamin C) 500 mg 500 mg PO DAILY 08/01 Unknown History tablet (C-500) cholecalciferol (vitamin D3) 25 25 mcg PO DAILY Unknown History mcg (1,000 unit) capsule (Vitamin D3) Allergy/AdvReac Type Severity Reaction Status Date / Time No Known Allergies Allergy Verified 08/13/24 10:12 Family History Mother CVA (cerebral vascular accident) Surgical History History of Social History Smoking Status: Never smoker alcohol intake: never substance use type: does not use Review of Systems (Anesthesia) ROS Narrative System reviewed and no additional complaints, except as documented. Physical Exam Const alert, oriented x3 and average body habitus Resp normal respiratory effort, normal air movement and clear to auscultation bilaterally Cardio regular rate, regular rhythm, no murmurs and diaphoretic 08/13/24 1047 MD> Date _ Marc Griffith MD Cosigner Signature: Date CC: ~ Signed [facility]02-20-2025 Evaluation note* Diagnosis Onset Date Resolution Status Admit Date Breast cancer acute July 252024 7:56am Breast cancer acute August 13, 2024 9:32am Breast cancer acute August 20, 2024 2:45pm Breast cancer acute August 26, 2024 2:24pm Iron deficiency anemia due t o chronic blood loss chronic August 26, 2 025 2:24pm Breast cancer acute September 11, 2024 9:50am Breast cancer acute September 24, 2024 9:32am Breast cancer acute September 26, 2024 10:48am Encounter for education acute A pri 2024 10:48am Iron deficiency anemia due t o chronic blood loss chronic September 26, 2 025 10:48am Breast cancer acute October 10 8:07am Iron deficiency anemia due t o chronic blood loss chronic October 10, 2024 8:07am Breast cancer acute October 17, 2 025 8:50am Iron deficiency anemia due t o chronic blood loss chronic October 17 8:50am Breast cancer acute October 24, 2 025 8:49am Encounter for chemotherapy management acute October 24, 2024 8 :49am Breast cancer acute November 07, 025 8:53am Encounter for chemotherapy management acute November 07, 2024 8 :53am Breast cancer acute November 21, 2024 8:41am Encounter for chemotherapy management acute November 21, 2024 8:41am [facility] Work Phone: 1(542) 805-806602-13-2025 Evaluation note* Diagnosis Onset Date Resolution Status Admit Date Breast cancer acute July 182024 2:26pm Breast cancer acute July 252024 7:56am Breast cancer acute August 13, 2024 9:32am Breast cancer acute August 20, 2024 2:45pm Breast cancer acute August 26, 2024 2:24pm Iron deficiency anemia due t o chronic blood loss chronic August 26, 025 2:24pm Breast cancer acute September 11, 2024 9:50am Breast cancer acute September 24, 2024 9:32am Breast cancer acute September 26, 2024 10:48am Encounter for education acute A pril 2024 10:48am Iron deficiency anemia due t o chronic blood loss chronic September 26, 025 10:48am Breast cancer acute October 10 8:07am Iron deficiency anemia due t o chronic blood loss chronic October 10, 2024 8:07am Breast cancer acute October 17 025 8:50am Iron deficiency anemia due t o chronic blood loss chronic October 17 8:50am Breast cancer acute October 24, 025 8:49am Encounter for chemotherapy management acute October 24, 2024 8 :49am Breast cancer acute November 07 025 8:53am Encounter for chemotherapy management acute November 07, 2024 8 :53am [facility] Work Phone: 1(522) 771-200701-16-2025 Evaluation note* Diagnosis Onset Date Resolution Status Admit Date Breast cancer acute June 7:53am Breast cancer acute June 1:05pm Left breast mass deleted July 02, 2024 1:05pm Breast cancer acute July 8:52am Iron deficiency anemia due t o chronic blood loss chronic July 08, 2024 8:52am Breast cancer acute July 1:47pm Breast cancer acute July 182024 2:26pm Breast cancer acute July 252024 7:56am Breast cancer acute August 13, 2024 9:32am Breast cancer acute August 20, 2024 2:45pm Breast cancer acute August 26, 2024 2:24pm Iron deficiency anemia due t o chronic blood loss chronic August 26, 025 2:24pm Breast cancer acute September 11, 2024 9:50am Breast cancer acute September 24, 2024 9:32am Breast cancer acute September 26, 2024 10:48am Encounter for education acute A pril 2024 10:48am Iron deficiency anemia due t o chronic blood loss chronic September 26 2 025 10:48am Breast cancer acute October 10 8:07am Iron deficiency anemia due t o chronic blood loss chronic October 10, 2024 8:07am [facility] Work Phone: 1(670) 667-785101-16-2025 Evaluation note* Diagnosis Onset Date Resolution Status Admit Date Breast cancer acute June 7:53am Breast cancer acute June 1:05pm Left breast mass deleted July 02, 2024 1:05pm Breast cancer acute July 8:52am Iron deficiency anemia due t o chronic blood loss chronic July 08, 2024 8:52am Breast cancer acute July 1:47pm Breast cancer acute July 182024 2:26pm Breast cancer acute July 252024 7:56am Breast cancer acute August 13, 2024 9:32am Breast cancer acute August 20, 2024 2:45pm Breast cancer acute August 26, 2024 2:24pm Iron deficiency anemia due t o chronic blood loss chronic August 26, 2 025 2:24pm Breast cancer acute September 11, 2024 9:50am Breast cancer acute September 24, 2024 9:32am Breast cancer acute September 26, 2024 10:48am Encounter for education acute A pril 2024 10:48am Iron deficiency anemia due t o chronic blood loss chronic September 26, 2 025 10:48am Breast cancer acute October 10 8:07am Iron deficiency anemia due t o chronic blood loss chronic October 10, 2024 8:07am Breast cancer acute October 17, 2 025 8:50am Iron deficiency anemia due t o chronic blood loss chronic October 17 8:50am [facility] Work Phone: 1(135) 667-744501-09-2025 Evaluation note* Diagnosis Onset Date Resolution Status Admit Date Left breast mass deleted June 13, 2024 2:27pm Breast cancer acute June 7:53am Breast cancer acute June 1:05pm Left breast mass deleted July 02, 2024 1:05pm Breast cancer acute July 8:52am Iron deficiency anemia due t o chronic blood loss chronic July 08, 2024 8:52am Breast cancer acute July 1:47pm Breast cancer acute July 182024 2:26pm Breast cancer acute July 252024 7:56am Breast cancer acute August 13, 2024 9:32am [facility] Work Phone: 1(155) 883-264601-09-2025 Evaluation note* Diagnosis Onset Date Resolution Status Admit Date Left breast mass deleted June 13, 2024 2:27pm Breast cancer acute June 7:53am Breast cancer acute June 1:05pm Left breast mass deleted July 02, 2024 1:05pm Breast cancer acute July 8:52am Iron deficiency anemia due t o chronic blood loss chronic July 08, 2024 8:52am Breast cancer acute July 1:47pm Breast cancer acute July 182024 2:26pm Breast cancer acute July 252024 7:56am Breast cancer acute August 13, 2024 9:32am Breast cancer acute August 20, 2024 2:45pm Breast cancer acute August 26, 2024 2:24pm Iron deficiency anemia due t o chronic blood loss chronic August 26, 2:24pm Breast cancer acute September 11, 2024 9:50am [facility] Work Phone: Consult note Author Marc Griffith [facility] Note Date/Time August 13, 2024 6:4 0pm [facility] Medical Records Department [address] [place] [id number] Anesthesia Postop Eval II 08/13/24 1839 MR#: [id number] Acct: [id number] Name: SUSAN LIN Rep #:[id number] : 1975 48 From: Marc Griffith MD PCP: TATE Genao Status:REG SDC Y Race: C Location: [place] [address] Anesthesia Postop Eval I Sum Postop Eval Completion status Anesthesia document: Postop Eval 1 completed: Yes Anesthesia Postop Eval I Summary Anesthesia Postop Eval I Summary: Anesthesia Postop Eval I: Assessment Summary Airway patent Yes 08/13/24 17:17 [email or web address] Spontaneous unlabored Yes 08/13/24 17:17 [email or web address] respirations Mental status Awake 08/13/24 17:17 [email or web address] nausea No 08/13/24 17:17 [email or web address] Vomiting No 08/13/24 17:17 [email or web address] Anesthesia Postop Eval I: Fluid Summary Crystalloid volume administer 1,900 08/13/24 17:17 [email or web address] (ml) Colloids volume administered ( ml) Blood Product volume administered (ml) Total IV fluid infused 1,900 08/13/24 17:17 [email or web address] Anesthesia Postop Eval I: Summary Notes Anesthesia Complication No 08/13/24 17:17 [email or web address] Anesthesia Complication Comment: Post-operative progress note Anesthesia: Postop Eval II Evaluation Mental status: Awake Pain Level: 0 nausea: No Vomiting: No Complications Anesthesia Complication: No 08/13/24 1840 <Electronically signed by Marc Griffith MD> Date _ Marc Griffith MD Cosigner Signature: Date CC: ~ Signed [facility] Work Phone: Consult note Author Deidra Magana [facility] Note Date/Time September 11, 2024 12:2 4pm [facility] Medical Records Department [address] [place] [address] Anesthesia Postop Eval I 09/11/24 1223 MR#: [id number] Acct: [id number] Name: SUSAN LIN Rep #:[id number] : 1975 48 From: Deidra silva GRINDER PCP: TATE Genao Status:REG SDC Y Race: C Location: [place] [address] Anesthesia: Postop Eval I Current Vital Signs Temperature: 97.7 F Pulse Rate: 106 Blood Pressure: 116/69 Respiratory Rate: 16 Pulse Ox: 100 Oxygen Delivery Method: Room Air Assessment Airway patent: Yes Spontaneous unlabored respirations: Yes Mental status: Awake and Calm nausea: No Vomiting: No Anesthesia Complication: No Fluid Hydration Crystalloid volume administer (ml): 800 Total IV fluid infused: 800 Progress Note Anesthesia document: Postop Eval 1 completed: Yes 09/11/24 1224 <Electronically signed by Deidra pantoja GRINDER> Date _ Deidra Magana GRINDER Cosigner Signature: Date CC: ~ Signed [facility] Work Phone: Discharge summary Author Gareth Mcdaniel [facility] Note Date/Time September 11, 2024 1:59 pm [facility] Medical Records Department [address] [place] [address] Instructions for Home/Discharge Instructions 09/11/24 1236 MR#: [id number] Acct: [id number] Name: SUSAN LIN Rep #:[id number] : 1975 48 From: Gareth Mcdaniel MD PCP: TATE Genao [place] [facility] [place] Diet Discharge Diet: Light diet - advance as tolerated Activity Discharge Activity: Return to Normal Activity May shower in (days): 1 Ice area for (Minutes): 30 Dressing / Incision Call your doctor if your incision/area has: Continuous Slow Oozing, Sudden Increased Bleeding, Increased Pain/ Swelling, Increased Redness, Foul Smelling Discharge and Swelling at the incision site Call your doctor if you observe: Fever of 101 or Higher Cleanse incision/area with: Soap & Water Additional Dressing/Incision Instructions:: Remove gauze dressing prior to firstshower. Wear supportive bra/sports bra Follow Up Care Please Follow Up With: Gareth Mcdaniel MD When: Approximately 2 weeks. Please call to schedule appointment Test Results: Test results from this visit will be discussed in further detail at your follow- up appointment, if applicable. Discharge Plan Admission Primary Reason for Your Visit: Left breast cancer Attending Provider: Gareth Mcdaniel Primary Care Provider: Romelia Martin Instructions Print Language: Greek Discharge Orders/Prescriptions Prescriptions: New oxycodone-acetaminophen [Percocet] 5-325 mg tablet 1 tab PO Q8H PRN (Reason: pain) 3 Days Qty: 9 0RF Continued ferrous fumarate 325 mg (106 mg iron) tablet 325 mg PO QDAY ascorbic acid (vitamin C) [C-500] 500 mg tablet 500 mg PO DAILY cholecalciferol (vitamin D3) [Vitamin D3] 25 mcg (1,000 unit) capsule 25 mcg PO DAILY Referrals / Follow Up: Romelia Martin PA [Primary Care Provider] - Disposition Disposition (needs filled in before D/C Order can be placed): Home, Self Care 09/11/24 2604<Electronically signed by Gareth Mcdaniel MD>Gareth Mcdaniel MD CC: TATE Genao ~ Signed [facility] Work Phone: Evaluation note* Diagnosis Pelvic mass- Primary Abdominal or pelvic swelling, mass or lump, unspecified site Malignant neoplasm of left female breast, unspecified estrogen receptor status, unspecified site of breast (HCC) documented in this encounter [facility] Discharge instructionsAmbulatory Orders* General Surgery Location: None Selected [facility] Work Phone: Progress note Author Wellington Moctezuma [facility] Services Note Date/Time February 20, 2025 1:38pm [facility] [address] [place] [id number] OFFICE VISIT Date of Service: 02/20/25 1234 MR#: [id number] Acct: [id number] Name: SUSAN LIN Rep #: [id number] : 1975 From: Wellington cochran DO Age/Sex: 49/F [place] [facility] [place]: Signed Intake Vital Signs 01/30/25 09:54 02/20/25 12:44 02/20/25 12:46 Height 5 ft 9 in 5 ft 9 in 5 ft 9 in Weight: 160 lb 5 oz BMI 23.6 BP 123/73 H Blood Pressure Location Rt brachial Position Sitting Respiration 18 Pulse 67 Pulse Source Monitor Temp 97.8 F Temperature Source Temporal Artery Pulse Oximetry (%) 99 Oxygen Delivery Method room air Intake Is patient in pain?: No Allergies No Known Allergies Allergy (Verified 02/20/25 12:34) Medications ?Medication ?Instructions ?Recorded ?Confirmed ?Type ascorbic acid (vitamin C) 500 mg 500 mg PO DAILY 08/0102/20/25 History tablet (C-500) cholecalciferol (vitamin D3) 25 25 mcg PO DAILY 02/20/25 History mcg (1,000 unit) capsule (Vitamin D3) lidocaine-prilocaine 2.5 %-2.5 % 1 applic topical ONCE PRN port 09/26/24 02/20/25 Rx topical cream access 30 days #30 grams ondansetron 8 mg disintegrating 8 mg PO Q8H PRN nausea and 09/26/24 02/20/25 Rx tablet vomiting #30 tabs prochlorperazine maleate 10 mg 10 mg PO Q6H PRN nausea and 09/26/24 02/20/25 Rx tablet vomiting #30 tabs dexamethasone 4 mg tablet 8 mg (2 x 4 mg) PO .COMPLEX #14 11/07/24 02/20/25 Rx tabs omeprazole magnesium 20 mg 20 mg PO BID 11/21/2402/20 History capsule,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)) Central Venous Access Central Venous Access: Yes Port/PICC: Port PFSH [facility] Medical History Transaminitis Regional lymph node metastasis present Encounter for chemotherapy management Well woman exam Ovarian cyst Encounter for education Wears glasses Low iron Restless leg syndrome History of migraine Non-smoker Iron deficiency anemia due to chronic blood loss Breast cancer Abnormal mammogram of left breast Home Medications ?Medication ?Instructions ?Recorded ?Last Taken ?Type ascorbic acid (vitamin C) 500 mg 500 mg PO DAILY 08/01 Unknown History tablet (C-500) cholecalciferol (vitamin D3) 25 25 mcg PO DAILY Unknown History mcg (1,000 unit) capsule (Vitamin D3) lidocaine-prilocaine 2.5 %-2.5 % 1 applic topical ONCE PRN port 09/26/24 Unknown Rx topical cream access 30 days #30 grams ondansetron 8 mg disintegrating 8 mg PO Q8H PRN nausea and 09/26/24 Unknown Rx tablet vomiting #30 tabs prochlorperazine maleate 10 mg 10 mg PO Q6H PRN nausea and 09/26/24 Unknown Rx tablet vomiting #30 tabs dexamethasone 4 mg tablet 8 mg (2 x 4 mg) PO .COMPLEX #14 11/07/24 Unknown Rx tabs omeprazole magnesium 20 mg 20 mg PO BID 11/21/24 Unkno wn History capsule,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)) Allergy/AdvReac Type Severity Reaction Status Date / Time No Known Allergies Allergy Verified 02/20/25 12:34 Family History Mother CVA (cerebral vascular accident) Surgical History Status post left breast lumpectomy History of Social History household members: spouse and children number of children: 3 current occupational status: employed current occupation: [employer] Smoking Status: Never smoker alcohol intake: never substance use type: does not use seatbelt use: always do you feel safe at home: Yes additional social history: - Reji Diagnosis: Susan Lin is a 49 year-old female diagnosed with pathologic stage IIIA (cT2 cN2a M0) grade 2 invasive ductal carcinoma (ER > 95%, VA > 95%, HER2 2+ IHC and negative on FISH) of the left breast status post left breast and left axillary ultrasound (06/10/2024), left breast and left axillary biopsy (06/13/2024), bilateral breast MRI with and without contrast (06/24/2024), evaluation by medical oncology (07/08/2024) completion of left breast lumpectomy and sentinel lymph node biopsy as well as LN dissection (08/13/2024), completion of reexcisionof lateral margin (09/11/2024), completion of PET scan (10/01/2024).? From 10/10/2024? 01/30/2025 she completed adjuvant AC+T. History of Present Illness: 06/10/2024: Patient completed left breast ultrasound due to having left breast palpable mass.? This demonstrated a solid suspicious appearing lesion with hypoechoic echotexture at the mid breast depth 2 o'clock position measuring about 12 x 11 x 19 mm.? Left axillary ultrasound demonstrated abnormal appearinglymph node in the axilla with cortex that is lobulated and thickened measuring up to 6 mm in thickness with at least 1 other similar-appearing abnormal axillary lymph node. 06/13/2024: Patient completed ultrasound-guided core biopsy of the left breast andalso the left axilla.? Pathology demonstrated grade 1 invasive ductal carcinoma (ER > 95%, VA > 95%, HER2 2+ IHC and negative on FISH) 06/24/2024: Patient completed bilateral breast MRI with and without contrast.? This demonstrated an enhancing mass at the 2 to 3 o'clock position of the left breast measuring about 2.3 x 1.2 x 2 cm with a clip noted in the lesion.? This mass corresponds to the mass shown on the left breast ultrasound.? No other abnormalities are appreciated.? There are no enlarged or abnormal appearing lymph nodes. 08/13/2024: Patient completed left breast lumpectomy and sentinel lymph node biopsy as well as axillary dissection.? Pathology was consistent with grade 2 invasive ductal carcinoma measuring 2.2 x 1.5 x 1.4 cm, margins are negative with the closest margin being 0.5 mm posteriorly, there is grade 2 DCIS associate with the mass with positive margin anterior and posterior measuring 2.5 mm, reresection margins negative other than possible lateral margin.? 2 lymph nodes were removed and 2 additional nodes were removed and all 4 lymph nodes contain macrometastasis with the largest being 1.4 cm with no evidence of extranodal extension.? pT2 pN2a 09/11/2024: Patient completed lateral margin reexcision.? This demonstrated focal DCIS measuring 2 mm with a negative surgical margin. 10/01/2024: Patient completed PET scan.? This demonstrated mildly hypermetabolic left axillary lymph node demonstrating max SUV of 2.2, left breast mass showing peripheral hypermetabolic uptake greatest in the lower left and upper aspects.? Level 1 axillary lymph nodes but no level 2 or 3 axillary lymph nodes.? Left ovarian lesion which is not hypermetabolic.? (12/23/2024: Patient completed pelvic/transvaginal ultrasound which demonstrated a 7 cm ovarian cyst containingdebris and possible peripheral calculi From 10/10/2024-11/21/2024: completed 4 cycles of AC From 12/04/2024 ? 01/30/2025: completed 4 cycles of paclitaxel Radiation Treatment History: No prior history of ration therapy. No pacemaker. No diagnosis of radiosensitizing comorbidity. Interval History: Patient presents for follow-up to proceed with CT simulation and adjuvant radiation therapy. She is doing very well overall. She completed chemotherapy about 3 weeks ago and reports tolerating this fairly well overall. She does still have some fatigue. She denies lymphedema or difficulty with arm range of motion. She denies any new pain or problems with breathing. She is staying very active in her daily life and continues to complete ADLs without any difficulty. She denies any other problems or concerns at this time. Review of Systems: A 12-point review of systems was completed and was negative except for what is noted in the HPI/Interval History and by the nurse. Physical Exam: Weight: 160 lbs 5 oz ECO KARNOFSKY SCORE: 90% CONSTITUTIONAL: Well-developed, well-nourished, and in no apparent distress. NECK: Supple, no thyromegaly, and non-tender. Trachea midline. No cervical or supraclavicular adenopathy noted. CARDIAC: Regular rate and rhythm. Normal S1, S2. No murmurs, rubs, or gallops. PULMONARY/CHEST: Lungs are clear to auscultation and percussion bilaterally. No wheezes, rhonchi, or crackles noted. No increased work of breathing. BREAST: deferred EXTREMITIES: Full range of motion in all four extremities. No evidence of edema. PSYCHIATRIC: Appropriate mood and affect for the clinical situation. Imaging: As per HPI Laboratory Data: None Assessment & Plan Assessment/Plan (1) Breast cancer, left breast: QUALIFIERS: Breast location: upper outer quadrant of breast Estrogen receptor status: positive Patient sex: female Qualified Code(s): C50.412 - Malignant neoplasm of upper-outer quadrant of left female breast; Z17.0 - Estrogen receptor positive status [ER+] PLAN: Plan Assessment: Susan Lin is a 49 year-old female diagnosed with pathologic stage IIIA (cT2 cN2a M0) grade 2 invasive ductal carcinoma (ER > 95%, VA > 95%, HER2 2+ IHC and negative on FISH) of the left breast status post left breast and left axillary ultrasound (06/10/2024), left breast and left axillary biopsy (06/13/2024), bilateral breast MRI with and without contrast (06/24/2024), evaluation by medical oncology (07/08/2024) completion of left breast lumpectomy and sentinel lymph node biopsy as well as LN dissection (08/13/2024), completion of reexcision of lateral margin (09/11/2024), completion of PET scan (10/01/2024).? From 10/10/2024 ? 01/30/2025 she completed adjuvant AC+T. Plan: Patient presents for follow-up prior to CT simulation. She completed adjuvant chemotherapy about 3 weeks ago and is doing well. We again reviewed the benefits of adjuvant radiation therapy both the left breast and regional lymph nodes. Following our discussion the patient desired to proceed with treatment. I discussed the risks, benefits, and alternatives to radiation therapy and all questions and concerns were answered to the best of my ability.? I explained the logistics of radiation therapy.? In particular, I discussed that the radiation proceeds over several weeks and is delivered with daily fractionation.? The process of planning radiation therapy was also discussed including the need for CT simulation, placement of tattoos or other marking, completion of the CT scan, and treatment planning including a verification simulation prior to initiation of treatment.? I then discussed the possibility of acute side effects from radiation which would include but are not limited to skin erythema/tanning, chest wall/breast discomfort, chest wall/breast swelling, mild esophagitis, possibly a cough/pneumnitis, and fatigue.? The temporary nature of the symptoms, supportive therapies that are available, as well as the expected average timeline for the resolution was all discussed.? The risk of permanent complications was then discussed and these would include but are not limited to, a 10-15% risk of permanent skin color/texture change in the area of the treated skin, lymphedema which would generally be about 5-10% after sentinel lymph node biopsy and 15-20% after axillary lymph node dissection (additional 5% risk with cole irradiation), 3-5% risk for muscle fibrosis causing decreased arm range of motion, risk for poor cosmetic outcome/capsular contracture that could require further surgery, chest wall fibrosis that could result in pain or reduced range of motion, <5% risk of radiation pneumonitis or lung fibrosis, radiation induced heart disease, small risk of rib fracture underlying the treated chest wall, poor wound healing in the event of future surgery to the radiated site, and a less than 1% long-term risk of secondary malignancy.? She desired to proceed with treatment and informed consent was obtained. CT SIM was completed without difficulty. We will plan to have her return in the next couple weeks to initiate treatment and she was instructed to call with any further questions or concerns in the interim. Thank you for allowing me to participate in the management and care of your patient. If I may answer any questions in the interim, please do not hesitate to contact me at any time. Wellington Moctezuma DO, MS [employer], Department of Radiation Oncology [facility] Coding Level of Care Code Off vis,est,level 3 Diagnoses Malignant neoplasm of upper-outer quadrant of left breast in female, estrogen receptor positive C50.412; Z17.0 Breast location: upper outer quadrant of breast Estrogen receptor status: positive Patient sex: female 02/20/25 8912 <Electronically signed by Wellington Moctezuma DO> Date _ Wellington Moctezuma DO Cosigner Signature: Date (if applicable) CC: ~ [facility] Work Phone: Progress note Author Bandar Stubbs [facility] Note Date/Time February 20, 2025 2:10pm [place] [address] [place] [address] OFFICE VISIT Date of Service: 02/20/25 1349 MR#: [id number] Acct: [id number] Name: SUSAN LIN Rep #: [id number] : 1975 From: Bandar portillo MD Age/Sex: 49/F [place] [facility] [place] Status: Signed HPI Subjective Date of Service 02/20/25 Chief Complaint Breast cancer on treatment History of Present Illness 49-year-old female who never had screening mammography and presented in June 2024 after a self palpated painless left breast mass. June 10, 2024 left breast ultrasound: Category 5, solid lesion at 12 o'clock position measuring 19 mm in maximum diameter in addition to an abnormal appearing left axillary lymph June 13, 2024 MICROSCOPIC DIAGNOSIS A. Left breast mass, core biopsy: Invasive ductal carcinoma. Ductal carcinoma in situ. See cancer summary in the comment section. B. Left axillary lymph node, core biopsy: Metastatic carcinoma, consistent with breast primary. ER: positive (>95, moderate intensity) VA: positive (>95, strong intensity) Her2: equivocal (2+) Ki67: positive, low, ~10% [id number]: [facility] lab not amplified. June 24, 2024 breast MRI: IMPRESSION: Enhancing mass at the 2:00 to 3:00 position of the left breast corresponding to the ultrasonographic abnormality representing the index lesion. No other abnormality identified. August 13, 2024 lumpectomy with sentinel lymph node biopsy: MICROSCOPIC DIAGNOSIS A: LEFT BREAST, NEEDLE-LOCALIZED LUMPECTOMY: - Invasive ductal carcinoma NST, Grade 2, surgical margins negative, pT2 pN2a. - DCIS, extensive, intermediate grade with focal necrosis, involving the anterior surgical margin. - See Comment for Synoptic Report. B: SENTINEL LYMPH NODE #1, EXCISION: - Positive for metastasis (14 mm) (06/05). C: SENTINEL LYMPH NODE #2, EXCISION: - Positive for metastasis (/). D: LEFT AXILLARY CONTENTS, EXCISION: - Two lymph nodes positive for metastasis (2/2). E: NEW ANTERIOR MARGINS, EXCISION: - Negative for invasive carcinoma. - Additional IHC to rule out DCIS are PENDING (to be reported in an addendum). SYNOPTIC REPORT FOR INVASIVE BREAST CARCINOMA Specimen (P=partial, M=mastectomy): P Laterality (R=right, L=left): L Focality (U=unifocal, M=multifocal): U Tumor size (cm): 2.2 x 1.5 x 1.4 cm Histologic type: invasive ductal carcinoma Histologic grade: 2 Tubule score (1-3): 3 Nuclear score (1-3): 2 Mitotic score (1-3): 1 Skin (I=involved, N=negative, NA=not applicable): N Lymphovascular invasion (E=extensive, F=focal, N=not identified): assessment PENDING IHC (to be reported in an addendum). Margins of main specimen (P=positive, N=negative): N Distance to closest margin of main specimen (mm): 0.5 mm Designation of closest margin of main specimen: posterior Designation of other margins of main specimen </=1 mm: NA Re-resection margin status (P=positive, N=negative, NA=not applicable): N DCIS (P=present, N=not identified): P Nuclear grade: 2 Comedo necrosis (P=present, N=not identified): P Extensive intraductal component (P=present, N=not identified): P Margins of main specimen (P=positive, N=negative): P Distance to closest margin of main specimen (mm): 0 mm Designation of closest margin of main specimen: anterior Designation of other margins of main specimen </=2 mm: posterior Longest span </= 2 mm to margin of main specimen (mm): 2.5 mm Re-resection margin status (P=positive, N=negative, NA=not applicable): N Regional lymph nodes: Total number of lymph nodes: 4 Number of sentinel lymph nodes: 2 Number with macrometastases: 4 Number with micrometastases: NA Number with isolated tumor cells: NA Size of largest cole metastasis (mm): 14 mm Size of extranodal extension (mm) (N=not identified): N Estrogen receptor: positive (95%, strong intensity) Progesterone receptor: positive (90%, intermediate intensity) HER2 IHC: equivocal (2+) HER2 FISH: PENDING (at [facility]) Specimen in which ER/VA/HER2 performed: [id number] pTNM: pT2 pN2a ADDENDUM This addendum is to report the results of the IHC for ERG (blocks A9, A10) performed at [facility]: No definitive lymphovascular invasion is identified with the ERG IHC. ADDENDUM This addendum is to report the findings of the additional CK5/6 IHCs performed on blocks A8, E3, E5, E7: A8) A focus of DCIS closely approaches the LATERAL surgical margin of the lumpectomy. E3,5,7) Multiple foci of usual ductal hyperplasia (UDH) are demonstrated. No DCIS is observed in these sections of the new anterior margin. Genetic test ([facility]) July 2024 no known pathogenic or likely pathogenic variant detected. Treatment summary and response: Lumpectomy with sentinel lymph node biopsy August 13, 2024. Margin reexcision scheduled September 11, 2024 Adjuvant adriamycin/cyclophosphamide October 10?November (4 cycles) Adjuvant paclitaxel December 04-January 30, 2025 (4 cycles) PFSH Medical History Transaminitis Regional lymph node metastasis present Encounter for chemotherapy management Well woman exam Ovarian cyst Encounter for education Wears glasses Low iron Restless leg syndrome History of migraine Non-smoker Iron deficiency anemia due to chronic blood loss Breast cancer Abnormal mammogram of left breast Surgical History Status post left breast lumpectomy History of Family History Mother CVA (cerebral vascular accident) Social History household members: spouse and children number of children: 3 current occupational status: employed current occupation: [employer] Smoking Status: Never smoker alcohol intake: never substance use type: does not use seatbelt use: always do you feel safe at home: Yes additional social history: - Reji ROS Constitutional Constitutional: Reports systems reviewed and no addt'l complaints, except as documented; Denies fever(s) or weight loss Eyes Eyes: Reports systems reviewed and no addt'l complaints, except as documented ENT HEENT: Reports systems reviewed and no addt'l complaints, except as documented; Denies mouth lesions Cardiovascular Cardiovascular: Reports systems reviewed and no addt'l complaints, except as documented; Denies chest pain with activity or edema Respiratory/Chest Respiratory/Chest: Reports systems reviewed and no addt'l complaints, except as documented; Denies cough or dyspnea on exertion Gastrointestinal Gastrointestinal: Reports systems reviewed and no addt'l complaints, except as documented; Denies change in bowel habits, hematochezia or melena Genitourinary Genitourinary: Reports systems reviewed and no addt'l complaints, except as documented and other Details: Last menstrual period was October 2024 Musculoskeletal Musculoskeletal: Reports systems reviewed and no addt'l complaints, except as documented Integumentary Integumentary: Reports systems reviewed and no addt'l complaints, except as documented; Denies new lesions Neurologic Neurologic: Reports systems reviewed and no addt'l complaints, except as documented; Denies focal weakness or paresthesias Psychiatric Psychiatric: Reports systems reviewed and no addt'l complaints, except as documented Endocrine Endocrinology: Reports flushing Hematologic/Lymphatic Hematologic/Lymphatic: Reports systems reviewed and no addt'l complaints, exceptas documented Allergic/Immunologic Allergic/Immunologic: Reports systems reviewed and no addt'l complaints, except as documented Intake Vital Signs 01/30/25 09:54 02/20/25 12:44 02/20/25 13:50 02/20/25 13:52 Height 5 ft 9 in 5 ft 9 in 5 ft 9 in Weight: 72.717 kg 72.575 kg BMI 23.6 BP 123/73 H Blood Pressure Location Lt brachial Position Sitting Respiration 18 Pulse 67 Pulse Source Monitor Temp 97.8 F Temperature Source Temporal Artery Pulse Oximetry (%) 99 Oxygen Delivery Method room air Intake Allergies No Known Allergies Allergy (Verified 02/20/25 13:53) Medications ?Medication ?Instructions ?Recorded ?Confirmed ?Type ascorbic acid (vitamin C) 500 mg 500 mg PO DAILY 08/0102/20/25 History tablet (C-500) cholecalciferol (vitamin D3) 25 25 mcg PO DAILY 02/20/25 History mcg (1,000 unit) capsule (Vitamin D3) lidocaine-prilocaine 2.5 %-2.5 % 1 applic topical ONCE PRN port 09/26/24 02/20/25 Rx topical cream access 30 days #30 grams ondansetron 8 mg disintegrating 8 mg PO Q8H PRN nausea and 09/26/24 02/20/25 Rx tablet vomiting #30 tabs prochlorperazine maleate 10 mg 10 mg PO Q6H PRN nausea and 09/26/24 02/20/25 Rx tablet vomiting #30 tabs dexamethasone 4 mg tablet 8 mg (2 x 4 mg) PO .COMPLEX #14 11/07/24 02/20/25 Rx tabs omeprazole magnesium 20 mg 20 mg PO BID 11/21/2402/20 History capsule,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)) Have you fallen in the past year?: No Central Venous Access Central Venous Access: Yes Port/PICC: Port Exam Physical Exam Narrative ECOG 0 Const alert, oriented x3 and no apparent distress Coding Level of Care Code Off vis,est,level 3 Exam Problem Focused Diagnoses Malignant neoplasm of left breast in female, estrogen receptor positive, unspecified site of breast C50.912; Z17.0 Breast location: unspecified site of breast Estrogen receptor status: positive Patient sex: female Laterality: left Regional lymph node metastasis present C77.9 Iron deficiency anemia due to chronic blood loss D50.0 Assessment and Plan Assessment and Plan (1) Breast cancer: Status: Chronic Qualifiers: Breast location: unspecified site of breast Estrogen receptor status: positive Patient sex: female Laterality: left Qualified Code(s): C50.912 - Malignant neoplasm of unspecified site of left female breast; Z17.0 - Estrogen receptor positive status [ER+] Comment: ER VA positive, diagnosed Jun 2024 (2) Regional lymph node metastasis present: Status: Chronic (3) Iron deficiency anemia due to chronic blood loss: Status: Chronic Plan 49-year-old female, premenopausal at diagnosis with invasive ductal cancer of the left breast high risk pathologic stage IIIA (T2, N2, M0) with metastatic cancer confirmed in all 4 sentinel lymph nodes. Cancer is ER positive (over 95% moderate), VA positive (over 95%, strong) HER2 2+ by immunohistochemistry, not amplified by FISH, Ki-67 positive low about 10%). Overall grade 2 Patient underwent lumpectomy with sentinel lymph node biopsy August 2024, reexcision of margin September 2024 and started systemic adjuvant chemotherapy October 2024 starting with Adriamycin and Cytoxan, followed by 4 cycles of Taxol on the dose dense schedule. She concluded all her adjuvant chemotherapy with no grade 3 or 4 toxicities Chronic comorbid conditions: Chronic iron deficiency anemia from menstrual loss. Recommendations: Based on NCCN guidelines and up-to-date review of treatment of early-stage breast cancer with intent to cure options are: 1-concluded adjuvant chemotherapy. 2. Adjuvant radiation therapy to the axilla to follow systemic chemotherapy. 3. Adjuvant hormonal therapy following radiation with an aromatase inhibitor, LHRH agonist ovarian suppression (until she undergoes planned oophorectomy) and 2 years of abemaciclib for high risk breast cancer. 4. Iron deficiency anemia chronic menstrual blood loss, she took oral iron for a while then she stopped due to GI side effects. Her anemia and iron profile has improved. Patient seen with her family, impression and plan discussed. Bandar Stubbs MD Salesperson Furn[employer], [facility] Divisions of Medical Oncology & Hematology Department of Internal Medicine [place] [phone] This note was generated using a voice recognition system software. Although it was reviewed by the author prior to finalization, it may still contain incorrect words, spelling, and punctuation that were not noted when reviewing prior to saving. If a clinically significant typo or inaccurately typed phrase is noted, please notify the author. Clinical Quality Measures Falls Risk Screening/Assistive Devices Have you fallen in the past year?: No 02/20/25 1410 <Electronically signed by Bandar swann MD> Date _ Bandar Stubbs MD Cosigner Signature: Date (if applicable) CC: ~ [facility] Work Phone: Progress note Author Wellington Moctezuma [facility] Note Date/Time March 05, 2025 9: 56am [facility] [place] [address] OFFICE VISIT Date of Service: 03/05/2544 MR#: [id number] Acct: [id number] Name: SUSAN LIN Rep #: [id number] : 1975 From: Wellington Avalos sammie DO Age/Sex: 49/F [place] [facility] Status: Signed Intake Vital Signs 02/20/25 13:52 03/05/25 09:46 Height 5 ft 9 in 5 ft 9 in Weight: 160 lb BMI 23.6 BP 121/77 H Blood Pressure Location Rt brachial Position Sitting Respiration 16 Pulse 68 Pulse Source Monitor Temp 98.2 F Temperature Source Temporal Artery Pulse Oximetry (%) 100 Oxygen Delivery Method room air Intake Is patient in pain?: No Allergies No Known Allergies Allergy (Verified 03/05/25 09:46) Medications ?Medication ?Instructions ?Recorded ?Confirmed ?Type ascorbic acid (vitamin C) 500 mg 500 mg PO DAILY 08/0103/05/25 History tablet (C-500) cholecalciferol (vitamin D3) 25 25 mcg PO DAILY 03/05/25 History mcg (1,000 unit) capsule (Vitamin D3) lidocaine-prilocaine 2.5 %-2.5 % 1 applic topical ONCE PRN port 09/26/24 03/05/25 Rx topical cream access 30 days #30 grams ondansetron 8 mg disintegrating 8 mg PO Q8H PRN nausea and 09/26/24 03/05/25 Rx tablet vomiting #30 tabs prochlorperazine maleate 10 mg 10 mg PO Q6H PRN nausea and 09/26/24 03/05/25 Rx tablet vomiting #30 tabs dexamethasone 4 mg tablet 8 mg (2 x 4 mg) PO .COMPLEX #14 11/07/24 03/05/25 Rx tabs omeprazole magnesium 20 mg 20 mg PO BID 11/21/2403/05 History capsule,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)) PFSH PFSH Medical History Transaminitis Regional lymph node metastasis present Encounter for chemotherapy management Well woman exam Ovarian cyst Encounter for education Wears glasses Low iron Restless leg syndrome History of migraine Non-smoker Iron deficiency anemia due to chronic blood loss Breast cancer Abnormal mammogram of left breast Home Medications ?Medication ?Instructions ?Recorded ?Last Taken ?Type ascorbic acid (vitamin C) 500 mg 500 mg PO DAILY 08/01 Unknown History tablet (C-500) cholecalciferol (vitamin D3) 25 25 mcg PO DAILY Unknown History mcg (1,000 unit) capsule (Vitamin D3) lidocaine-prilocaine 2.5 %-2.5 % 1 applic topical ONCE PRN port 09/26/24 Unknown Rx topical cream access 30 days #30 grams ondansetron 8 mg disintegrating 8 mg PO Q8H PRN nausea and 09/26/24 Unknown Rx tablet vomiting #30 tabs prochlorperazine maleate 10 mg 10 mg PO Q6H PRN nausea and 09/26/24 Unknown Rx tablet vomiting #30 tabs dexamethasone 4 mg tablet 8 mg (2 x 4 mg) PO .COMPLEX #14 11/07/24 Unknown Rx tabs omeprazole magnesium 20 mg 20 mg PO BID 11/21/24 Unkno wn History capsule,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)) Allergy/AdvReac Type Severity Reaction Status Date / Time No Known Allergies Allergy Verified 03/05/25 09:46 Family History Mother CVA (cerebral vascular accident) Surgical History Status post left breast lumpectomy History of Social History household members: spouse and children number of children: 3 current occupational status: employed current occupation: [employer] Smoking Status: Never smoker alcohol intake: never substance use type: does not use seatbelt use: always do you feel safe at home: Yes additional social history: - Reji Diagnosis: Susan Lin is a 49 year-old female diagnosed with pathologic stage IIIA (cT2 cN2a M0) grade 2 invasive ductal carcinoma (ER > 95%, VA > 95%, HER2 2+ IHC and negative on FISH) of the left breast status post left breast and left axillary ultrasound (06/10/2024), left breast and left axillary biopsy (06/13/2024), bilateral breast MRI with and without contrast (06/24/2024), evaluation by medical oncology (07/08/2024) completion of left breast lumpectomy and sentinel lymph node biopsy as well as LN dissection (08/13/2024), completion of reexcisionof lateral margin (09/11/2024), completion of PET scan (10/01/2024).? From 10/10/2024? 01/30/2025 she completed adjuvant AC+T. Plan: Plan was made to complete adjuvant radiation therapy to the left breast and regional lymph nodes consisting of 5000 cGy delivered in 25 fractions followed by a boost to lumpectomy cavity consisting of 1000 centigrade delivered in 5 fractions. She was treated using a DIBH technique in the supine position. Treatment Data: Treatment Site: Left breast and RNI Current total dose/Total dose planned: 600 cGy / 5000 cGy; 0 cGy / 1000 cGy Fraction number: ; 0 / 5 Chemotherapy: none Subjective: Pain: 0 / 10 Fatigue: none Breast: no edema or pain. No skin erythema, rash, desquamation. Resp: no SOB, cough Objective: Weight: 160 lbs Physical Exam: Gen: NAD Breast: well healed lumpectomy incision. No edema or pain. No skin erythema, rash, desquamation. Labs: None Assessment & Plan Assessment/Plan (1) Breast cancer, left breast: QUALIFIERS: Breast location: upper outer quadrant of breast Estrogen receptor status: positive Patient sex: female Qualified Code(s): C50.412 - Malignant neoplasm of upper-outer quadrant of left female breast; Z17.0 - Estrogen receptor positive status [ER+] PLAN: Plan Assessment: Tolerating treatment well overall.? I reviewed and approved all treatment associated imaging. No treatment associated toxicities are noted at this time Plan: Continue treatment as planned.? I have reviewed potential treatment associated toxicities as well as timing for resolution and management. Skin: reviewed skin care instructions Follow up next week or sooner if needed. Thank you for allowing me to participate in the management and care of your patient. If I may answer any questions in the interim, please do not hesitate to contact me at any time. Wellington Moctezuma DO, MS [employer], Department of Radiation Oncology [facility] Coding Level of Care Code Radiation Tx Management x5 Diagnoses Malignant neoplasm of upper-outer quadrant of left breast in female, estrogen receptor positive C50.412; Z17.0 Breast location: upper outer quadrant of breast Estrogen receptor status: positive Patient sex: female 03/05/2559 <Electronically signed by Wellington Moctezuma DO> Date _ Wellington Moctezuma DO Cosigner Signature: Date (if applicable) CC: ~ [facility] Work Phone: Progress note Author Wellington Moctezuma [facility] Note Date/Time March 19, 2025 9 :57am [facility] [address] [address] OFFICE VISIT Date of Service: 03/19/25940 MR#: [id number] Acct: [id number] Name: SUSAN LIN Rep #: [id number] : 1975 From: Wellington cochran DO Age/Sex: 49/F [place] [facility] [place]: Signed Intake Vital Signs 02/20/25 13:52 03/19/25 09:45 Height 5 ft 9 in 5 ft 9 in Weight: 162 lb 7 oz BMI 24.0 BP 124/76 H Blood Pressure Location Rt brachial Position Sitting Respiration 18 Pulse 66 Pulse Source Monitor Temp 98.1 F Temperature Source Temporal Artery Pulse Oximetry (%) 100 Oxygen Delivery Method room air Intake Is patient in pain?: No Allergies No Known Allergies Allergy (Verified 03/19/25 09:44) Medications ?Medication ?Instructions ?Recorded ?Confirmed ?Type ascorbic acid (vitamin C) 500 mg 500 mg PO DAILY 08/0103/19/25 History tablet (C-500) cholecalciferol (vitamin D3) 25 25 mcg PO DAILY 03/19/25 History mcg (1,000 unit) capsule (Vitamin D3) lidocaine-prilocaine 2.5 %-2.5 % 1 applic topical ONCE PRN port 09/26/24 03/19/25 Rx topical cream access 30 days #30 grams ondansetron 8 mg disintegrating 8 mg PO Q8H PRN nausea and 09/26/24 03/19/25 Rx tablet vomiting #30 tabs prochlorperazine maleate 10 mg 10 mg PO Q6H PRN nausea and 09/26/24 03/19/25 Rx tablet vomiting #30 tabs dexamethasone 4 mg tablet 8 mg (2 x 4 mg) PO .COMPLEX #14 11/07/24 03/19/25 Rx tabs omeprazole magnesium 20 mg 20 mg PO BID 11/21/2403/19 History capsule,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)) PFSH PFSH Medical History Transaminitis Regional lymph node metastasis present Encounter for chemotherapy management Well woman exam Ovarian cyst Encounter for education Wears glasses Low iron Restless leg syndrome History of migraine Non-smoker Iron deficiency anemia due to chronic blood loss Breast cancer Abnormal mammogram of left breast Home Medications ?Medication ?Instructions ?Recorded ?Last Taken ?Type ascorbic acid (vitamin C) 500 mg 500 mg PO DAILY 08/01 Unknown History tablet (C-500) cholecalciferol (vitamin D3) 25 25 mcg PO DAILY Unknown History mcg (1,000 unit) capsule (Vitamin D3) lidocaine-prilocaine 2.5 %-2.5 % 1 applic topical ONCE PRN port 09/26/24 Unknown Rx topical cream access 30 days #30 grams ondansetron 8 mg disintegrating 8 mg PO Q8H PRN nausea and 09/26/24 Unknown Rx tablet vomiting #30 tabs prochlorperazine maleate 10 mg 10 mg PO Q6H PRN nausea and 09/26/24 Unknown Rx tablet vomiting #30 tabs dexamethasone 4 mg tablet 8 mg (2 x 4 mg) PO .COMPLEX #14 11/07/24 Unknown Rx tabs omeprazole magnesium 20 mg 20 mg PO BID 11/21/24 Unkno wn History capsule,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)) Allergy/AdvReac Type Severity Reaction Status Date / Time No Known Allergies Allergy Verified 03/19/25 09:44 Family History Mother CVA (cerebral vascular accident) Surgical History Status post left breast lumpectomy History of Social History household members: spouse and children number of children: 3 current occupational status: employed current occupation: [employer] Smoking Status: Never smoker alcohol intake: never substance use type: does not use seatbelt use: always do you feel safe at home: Yes additional social history: - Reji Diagnosis: Susan Lin is a 49 year-old female diagnosed with pathologic stage IIIA (cT2 cN2a M0) grade 2 invasive ductal carcinoma (ER > 95%, VA > 95%, HER2 2+ IHC and negative on FISH) of the left breast status post left breast and left axillary ultrasound (06/10/2024), left breast and left axillary biopsy (06/13/2024), bilateral breast MRI with and without contrast (06/24/2024), evaluation by medical oncology (07/08/2024) completion of left breast lumpectomy and sentinel lymph node biopsy as well as LN dissection (08/13/2024), completion of reexcision of lateral margin (09/11/2024), completion of PET scan (10/01/2024).? From 10/10/2024 ? 01/30/2025 she completed adjuvant AC+T. Plan: Plan was made to complete adjuvant radiation therapy to the left breast and regional lymph nodes consisting of 5000 cGy delivered in 25 fractions followed by a boost to lumpectomy cavity consisting of 1000 centigrade delivered in 5 fractions. She was treated using a DIBH technique in the supine position. Treatment Data: Treatment Site: Left breast and RNI Current total dose/Total dose planned: 2600 cGy / 5000 cGy; 0 cGy / 1000 cGy Fraction number: ; 0 / 5 Chemotherapy: none Subjective: Pain: 0 / 10 Fatigue: mild, stable from pre-treatment Breast: no edema or pain. mild skin erythema, mild miliaria rubra rash, no desquamation. Resp: no SOB, cough Objective: Weight: 162 lbs Physical Exam: Gen: NAD Breast: well healed lumpectomy incision. No edema or pain. mild skin erythema,mild miliaria rubra rash, no desquamation. Labs: None Assessment & Plan Assessment/Plan (1) Breast cancer, left breast: QUALIFIERS: Breast location: upper outer quadrant of breast Estrogen receptor status: positive Patient sex: female Qualified Code(s): C50.412 - Malignant neoplasm of upper-outer quadrant of left female breast; Z17.0 - Estrogen receptor positive status [ER+] PLAN: Plan Assessment: Tolerating treatment well overall.? I reviewed and approved all treatment associated imaging. fatigue, mild miliaria rubra, hydrocortisone cream Plan: Continue treatment as planned.? I have reviewed potential treatment associated toxicities as well as timing for resolution and management. Skin: reviewed skin care instructions Follow up next week or sooner if needed. Thank you for allowing me to participate in the management and care of your patient. If I may answer any questions in the interim, please do not hesitate to contact me at any time. Wellington Moctezuma DO, MS Salesperson [employer], Department of Radiation Oncology [facility] Coding Level of Care Code Radiation Tx Management x5 Diagnoses Malignant neoplasm of upper-outer quadrant of left breast in female, estrogen receptor positive C50.412; Z17.0 Breast location: upper outer quadrant of breast Estrogen receptor status: positive Patient sex: female 03/19/25 2803 <Electronically signed by Wellington Moctezuma DO> Date _ Wellington Moctezuma DO Cosigner Signature: Date (if applicable) CC: ~ [facility] Work Phone: Progress note Author Wellington Moctezuma [facility] Services Note Date/Time March 26, 2025 1 1:01am [facility] [place] [address] OFFICE VISIT Date of Service: 03/26/25944 MR#: [id number] Acct: [id number] Name: SUSAN LIN Rep #: [id number] : 1975 From: Wellington cochran DO Age/Sex: 49/F [place] [facility] Status: Signed Intake Vital Signs 02/20/25 13:52 03/26/25 09:48 Height 5 ft 9 in 5 ft 9 in Weight: 164 lb 3 oz BMI 24.2 BP 113/76 Blood Pressure Location Rt brachial Position Sitting Respiration 16 Pulse 63 Pulse Source Monitor Temp 96.4 F L Temperature Source Temporal Artery Pulse Oximetry (%) 100 Oxygen Delivery Method room air Intake Is patient in pain?: No Allergies No Known Allergies Allergy (Verified 03/26/25 09:47) Medications ?Medication ?Instructions ?Recorded ?Confirmed ?Type ascorbic acid (vitamin C) 500 mg 500 mg PO DAILY 08/0103/26/25 History tablet (C-500) cholecalciferol (vitamin D3) 25 25 mcg PO DAILY 03/26/25 History mcg (1,000 unit) capsule (Vitamin D3) lidocaine-prilocaine 2.5 %-2.5 % 1 applic topical ONCE PRN port 09/26/24 03/26/25 Rx topical cream access 30 days #30 grams ondansetron 8 mg disintegrating 8 mg PO Q8H PRN nausea and 09/26/24 03/26/25 Rx tablet vomiting #30 tabs prochlorperazine maleate 10 mg 10 mg PO Q6H PRN nausea and 09/26/24 03/26/25 Rx tablet vomiting #30 tabs dexamethasone 4 mg tablet 8 mg (2 x 4 mg) PO .COMPLEX #14 11/07/24 03/26/25 Rx tabs omeprazole magnesium 20 mg 20 mg PO BID 11/21/2403/26 History capsule,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)) Central Venous Access Central Venous Access: Yes Port/PICC: Port [facility] Medical History Transaminitis Regional lymph node metastasis present Encounter for chemotherapy management Well woman exam Ovarian cyst Encounter for education Wears glasses Low iron Restless leg syndrome History of migraine Non-smoker Iron deficiency anemia due to chronic blood loss Breast cancer Abnormal mammogram of left breast Home Medications ?Medication ?Instructions ?Recorded ?Last Taken ?Type ascorbic acid (vitamin C) 500 mg 500 mg PO DAILY 08/01 Unknown History tablet (C-500) cholecalciferol (vitamin D3) 25 25 mcg PO DAILY Unknown History mcg (1,000 unit) capsule (Vitamin D3) lidocaine-prilocaine 2.5 %-2.5 % 1 applic topical ONCE PRN port 09/26/24 Unknown Rx topical cream access 30 days #30 grams ondansetron 8 mg disintegrating 8 mg PO Q8H PRN nausea and 09/26/24 Unknown Rx tablet vomiting #30 tabs prochlorperazine maleate 10 mg 10 mg PO Q6H PRN nausea and 09/26/24 Unknown Rx tablet vomiting #30 tabs dexamethasone 4 mg tablet 8 mg (2 x 4 mg) PO .COMPLEX #14 11/07/24 Unknown Rx tabs omeprazole magnesium 20 mg 20 mg PO BID 11/21/24 Unkno wn History capsule,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)) Allergy/AdvReac Type Severity Reaction Status Date / Time No Known Allergies Allergy Verified 03/26/25 09:47 Family History Mother CVA (cerebral vascular accident) Surgical History Status post left breast lumpectomy History of Social History household members: spouse and children number of children: 3 current occupational status: employed current occupation: [employer] Smoking Status: Never smoker alcohol intake: never substance use type: does not use seatbelt use: always do you feel safe at home: Yes additional social history: - Reji Diagnosis: Susan Lin is a 49 year-old female diagnosed with pathologic stage IIIA (cT2 cN2a M0) grade 2 invasive ductal carcinoma (ER > 95%, VA > 95%, HER2 2+ IHC and negative on FISH) of the left breast status post left breast and left axillary ultrasound (06/10/2024), left breast and left axillary biopsy (06/13/2024), bilateral breast MRI with and without contrast (06/24/2024), evaluation by medical oncology (07/08/2024) completion of left breast lumpectomy and sentinel lymph node biopsy as well as LN dissection (08/13/2024), completion of reexcisionof lateral margin (09/11/2024), completion of PET scan (10/01/2024).? From 10/10/2024? 01/30/2025 she completed adjuvant AC+T. Plan: Plan was made to complete adjuvant radiation therapy to the left breast and regional lymph nodes consisting of 5000 cGy delivered in 25 fractions followed by a boost to lumpectomy cavity consisting of 1000 centigrade delivered in 5 fractions. She was treated using a DIBH technique in the supine position. Treatment Data: Treatment Site: Left breast and RNI Current total dose/Total dose planned: 3600 cGy / 5000 cGy; 0 cGy / 1000 cGy Fraction number: ; 0 / 5 Chemotherapy: none Subjective: Pain: 0 / 10 Fatigue: mild, stable from pre-treatment Breast: no edema or pain. mild skin erythema, moderate miliaria rubra rash, no desquamation. Resp: no SOB, cough Objective: Weight: 164 lbs Physical Exam: Gen: NAD Breast: well healed lumpectomy incision. No edema or pain. moderate skin erythema, mild miliaria rubra rash, no desquamation. Labs: None Assessment & Plan Assessment/Plan (1) Breast cancer, left breast: QUALIFIERS: Breast location: upper outer quadrant of breast Estrogen receptor status: positive Patient sex: female Qualified Code(s): C50.412 - Malignant neoplasm of upper-outer quadrant of left female breast; Z17.0 - Estrogen receptor positive status [ER+] PLAN: Plan Assessment: Tolerating treatment well overall.? I reviewed and approved all treatment associated imaging. fatigue, mild miliaria rubra, hydrocortisone cream skin: grade 1-2 erythema Plan: Continue treatment as planned.? I have reviewed potential treatment associated toxicities as well as timing for resolution and management. Skin: reviewed skin care instructions Follow up next week or sooner if needed. Thank you for allowing me to participate in the management and care of your patient. If I may answer any questions in the interim, please do not hesitate to contact me at any time. Wellington Moctezuma DO, MS [employer]person [employer], Department of Radiation Oncology [facility] Coding Level of Care Code Radiation Tx Management x5 Diagnoses Malignant neoplasm of upper-outer quadrant of left breast in female, estrogen receptor positive C50.412; Z17.0 Breast location: upper outer quadrant of breast Estrogen receptor status: positive Patient sex: female 03/26/25 1004 <Electronically signed by Wellington Moctezuma DO> Date _ Wellington Moctezuma DO Cosigner Signature: Date (if applicable) CC: ~ [facility] Work Phone: Reason for referral (narrative)No reason for referral information availableWShelby [facility] Work Phone: Family History Diabetes Mellitus Type II Status:Active Commen ts:Grandparents Osteoarthritis Status:Active Comments:Grandfa ther Diabetes Mellitus Type II Status:Active Commen ts:Grandparents Osteoarthritis Status:Active Comments:Grandfa ther Diabetes Mellitus Type II Status:Active Commen ts:Grandparents Osteoarthritis Status:Active Comments:Grandfa ther Diabetes Mellitus Type II Status:Active Commen ts:Grandparents Osteoarthritis Status:Active Comments:Grandfa ther Diabetes Mellitus Type II Status:Active Commen ts:Grandparents Osteoarthritis Status:Active Comments:Grandfa ther Diabetes Mellitus Type II Status:Active Commen ts:Grandparents Osteoarthritis Status:Active Comments:Grandfa ther Diabetes Mellitus Type II Status:Active Commen ts:Grandparents Osteoarthritis Status:Active Comments:Grandfa ther Diabetes Mellitus Type II Status:Active Commen ts:Grandparents Osteoarthritis Status:Active Comments:Grandfa ther Diabetes Mellitus Type II Status:Active Commen ts:Grandparents Osteoarthritis Status:Active Comments:Grandfa ther Diabetes Mellitus Type II Status:Active Commen ts:Grandparents Osteoarthritis Status:Active Comments:Grandfa ther Diabetes Mellitus Type II Status:Active Commen ts:Grandparents Osteoarthritis Status:Active Comments:Grandfa ther Diabetes Mellitus Type II Status:Active Commen ts:Grandparents Osteoarthritis Status:Active Comments:Grandfa ther Diabetes Mellitus Type II Status:Active Commen ts:Grandparents Osteoarthritis Status:Active Comments:Grandfa ther Diabetes Mellitus Type II Status:Active Commen ts:Grandparents Osteoarthritis Status:Active Comments:Grandfa ther Diabetes Mellitus Type II Status:Active Commen ts:Grandparents Osteoarthritis Status:Active Comments:Grandfa ther Diabetes Mellitus Type II Status:Active Commen ts:Grandparents Osteoarthritis Status:Active Comments:Grandfa ther Diabetes Mellitus Type II Status:Active Commen ts:Grandparents Osteoarthritis Status:Active Comments:Grandfa ther Diabetes Mellitus Type II Status:Active Commen ts:Grandparents Osteoarthritis Status:Active Comments:Grandfa ther Diabetes Mellitus Type II Status:Active Commen ts:Grandparents Osteoarthritis Status:Active Comments:Grandfa ther Diabetes Mellitus Type II Status:Active Commen ts:Grandparents Osteoarthritis Status:Active Comments:Grandfa ther Diabetes Mellitus Type II Status:Active Commen ts:Grandparents Osteoarthritis Status:Active Comments:Grandfa ther Diabetes Mellitus Type II Status:Active Commen ts:Grandparents Osteoarthritis Status:Active Comments:Grandfa ther Diabetes Mellitus Type II Status:Active Commen ts:Grandparents Osteoarthritis Status:Active Comments:Grandfa ther Diabetes Mellitus Type II Status:Active Commen ts:Grandparents Osteoarthritis Status:Active Comments:Grandfa ther Diabetes Mellitus Type II Status:Active Commen ts:Grandparents Osteoarthritis Status:Active Comments:Grandfa ther Diabetes Mellitus Type II Status:Active Commen ts:Grandparents Osteoarthritis Status:Active Comments:Grandfa ther Diabetes Mellitus Type II Status:Active Commen ts:Grandparents Osteoarthritis Status:Active Comments:Grandfa ther Diabetes Mellitus Type II Status:Active Commen ts:Grandparents Osteoarthritis Status:Active Comments:Grandfa ther Diabetes Mellitus Type II Status:Active Commen ts:Grandparents Osteoarthritis Status:Active Comments:Grandfa ther Relationship Condition Age at Onset Recorded Date/T jerald mother Cerebrovascular accident (CVA) Unknown Diabetes Mellitus Type II Status:Active Commen ts:Grandparents Osteoarthritis Status:Active Comments:Grandfa ther Diabetes Mellitus Type II Status:Active Commen ts:Grandparents Osteoarthritis Status:Active Comments:Grandfa ther Diabetes Mellitus Type II Status:Active Commen ts:Grandparents Osteoarthritis Status:Active Comments:Grandfa ther Diabetes Mellitus Type II Status:Active Commen ts:Grandparents Osteoarthritis Status:Active Comments:Grandfa ther Diabetes Mellitus Type II Status:Active Commen ts:Grandparents Osteoarthritis Status:Active Comments:Grandfa ther Diabetes Mellitus Type II Status:Active Commen ts:Grandparents Osteoarthritis Status:Active Comments:Grandfa ther Diabetes Mellitus Type II Status:Active Commen ts:Grandparents Osteoarthritis Status:Active Comments:Grandfa ther Diabetes Mellitus Type II Status:Active Commen ts:Grandparents Osteoarthritis Status:Active Comments:Grandfa ther Diabetes Mellitus Type II Status:Active Commen ts:Grandparents Osteoarthritis Status:Active Comments:Grandfa ther Diabetes Mellitus Type II Status:Active Commen ts:Grandparents Osteoarthritis Status:Active Comments:Grandfa ther Diabetes Mellitus Type II Status:Active Commen ts:Grandparents Osteoarthritis Status:Active Comments:Grandfa ther Diabetes Mellitus Type II Status:Active Commen ts:Grandparents Osteoarthritis Status:Active Comments:Grandfa ther Diabetes Mellitus Type II Status:Active Commen ts:Grandparents Osteoarthritis Status:Active Comments:Grandfa ther Diabetes Mellitus Type II Status:Active Commen ts:Grandparents Osteoarthritis Status:Active Comments:Grandfa ther Diabetes Mellitus Type II Status:Active Commen ts:Grandparents Osteoarthritis Status:Active Comments:Grandfa ther Diabetes Mellitus Type II Status:Active Commen ts:Grandparents Osteoarthritis Status:Active Comments:Grandfa ther Diabetes Mellitus Type II Status:Active Commen ts:Grandparents Osteoarthritis Status:Active Comments:Grandfa ther Diabetes Mellitus Type II Status:Active Commen ts:Grandparents Osteoarthritis Status:Active Comments:Grandfa ther Diabetes Mellitus Type II Status:Active Commen ts:Grandparents Osteoarthritis Status:Active Comments:Grandfa ther Diabetes Mellitus Type II Status:Active Commen ts:Grandparents Osteoarthritis Status:Active Comments:Grandfa ther Diabetes Mellitus Type II Status:Active Commen ts:Grandparents Osteoarthritis Status:Active Comments:Grandfa ther Diabetes Mellitus Type II Status:Active Commen ts:Grandparents Osteoarthritis Status:Active Comments:Grandfa ther Diabetes Mellitus Type II Status:Active Commen ts:Grandparents Osteoarthritis Status:Active Comments:Grandfa ther Diabetes Mellitus Type II Status:Active Commen ts:Grandparents Osteoarthritis Status:Active Comments:Grandfa ther Diabetes Mellitus Type II Status:Active Commen ts:Grandparents Osteoarthritis Status:Active Comments:Grandfa ther Diabetes Mellitus Type II Status:Active Commen ts:Grandparents Osteoarthritis Status:Active Comments:Grandfa ther Diabetes Mellitus Type II Status:Active Commen ts:Grandparents Osteoarthritis Status:Active Comments:Grandfa ther Diabetes Mellitus Type II Status:Active Commen ts:Grandparents Osteoarthritis Status:Active Comments:Grandfa ther Diabetes Mellitus Type II Status:Active Commen ts:Grandparents Osteoarthritis Status:Active Comments:Grandfa ther Summary Purpose Advance Directives Advance Directive Response Recorded Date/ Time Living Will No August 01 025 2:18pm Power of Stock Speculator No August 01, 2024 2:18pm Advance Directive Response Recorded Date/ Time Living Will No August 28, 2024 2:49pm Do you have a Healthcare Power of Stock Speculator? No August 28, 2024 2:49pm Living Will No August 01 2 025 2:18pm Do you have a Healthcare Power of Stock Speculator? No August 01, 2024 2:18pm Advance Directive Response Recorded Date/ Time Living Will No August 28, 2024 2:49pm Do you have a Healthcare Power of Stock Speculator? No August 28, 2024 2:49pm Living Will No August 01 2 025 2:18pm Do you have a Healthcare Power of Stock Speculator? No August 01, 2024 2:18pm Living Will No October 11, 2024 1: 37pm Do you have a Healthcare Power of Stock Speculator? No October 11, 2024 1:37pm Advance Directives No October 11, 2024 1:37pm Advance Directive Response Recorded Date/ Time Living Will No August 28, 2024 2:49pm Do you have a Healthcare Power of Stock Speculator? No August 28, 2024 2:49pm Living Will No August 01 2 025 2:18pm Do you have a Healthcare Power of Stock Speculator? No August 01, 2024 2:18pm Living Will No October 24, 2024 1 0:44am Do you have a Healthcare Power of Stock Speculator? No October 24, 2024 10:44am Advance Directives No October 24 10:44am Advance Directive Response Recorded Date/ Time Living Will No August 28, 2024 2:49pm Do you have a Healthcare Power of Stock Speculator? No August 28, 2024 2:49pm Living Will No August 01, 2 025 2:18pm Do you have a Healthcare Power of Stock Speculator? No August 01, 2024 2:18pm Living Will No November 07, 2024 1 0:58am Do you have a Healthcare Power of Stock Speculator? No November 07, 2024 10:58am Advance Directives No November 07 10:58am Advance Directive Response Recorded Date/ Time Living Will No August 28, 2024 2:49pm Do you have a Healthcare Power of Stock Speculator? No August 28, 2024 2:49pm Living Will No August 01, 2 025 2:18pm Do you have a Healthcare Power of Stock Speculator? No August 01, 2024 2:18pm Living Will No November 22, 2024 1:08pm Do you have a Healthcare Power of Stock Speculator? No November 22, 2024 1:08pm Advance Directives No November 22 1:08pm Advance Directive Response Recorded Date/ Time Living Will No August 28, 2024 2:49pm Do you have a Healthcare Power of Stock Speculator? No August 28, 2024 2:49pm Living Will No December 05, 2024 3 :27pm Do you have a Healthcare Power of Stock Speculator? No December 05, 2024 3:27pm Advance Directives No December 05 3:27pm Advance Directive Response Recorded Date/ Time Living Will No January 03, 2025 3:04pm Do you have a Healthcare Power of Stock Speculator? No January 03, 2025 3:04pm Advance Directives No January 03, 2 025 3:04pm Advance Directive Response Recorded Date/ Time Living Will No January 17 2:06pm Do you have a Healthcare Power of Stock Speculator? No January 17, 2025 2:06pm Advance Directives No January 17, 2025 2:06pm Advance Directive Response Recorded Date/ Time Living Will No January 31 2:08pm Do you have a Healthcare Power of Stock Speculator? No January 31, 2025 2:08pm Advance Directives No January 31, 2025 2:08pm Advance Directive Response Recorded Date/ Time Living Will No January 31 1:08pm Do you have a Healthcare Power of Stock Speculator? No January 31, 2025 1:08pm Advance Directives No January 31, 2025 1:08pm Chief Complaint and Reason for Visit Chief Complaint Admit Date BIRADS 5 June 13, 2024 2: 27pm GO OVER PATH/DISCUSS SURGERY June 7:53am BREAST CANCER June 24, 2024 1 2:29pm BREAST RECONSTRUCTION July 02, 2024 1:05pm BREAST CA July 08, 2024 8 :52am CONSULT - BREAST July 09, 2024 1 :47pm eval LNs for breast cancer July 12:19pm discuss mri/surgery options July 2:26pm BREAST RECONSTRUCTION July 25 7:56am Stereo wire localization lumpectomy x2, SLN bx, bl August 13, 2024 9:32am Stereo wire localization lumpectomy x2, SLN bx, bl August 13, 2024 12:06pm Stereo wire localization lumpectomy x2, SLN bx, bl August 13, 2024 12:23pm Reason for Visit Admit Date Left breast mass June 13, 2024 2: 27pm Breast cancer June 20, 2024 7 :53am Breast cancer July 02, 2024 1 :05pm Left breast mass July 02, 2024 1 :05pm Breast cancer July 08, 2024 8 :52am Iron deficiency anemia due to chronic bl ood loss July 08, 2024 8:52am Breast cancer July 09, 2024 1 :47pm Breast cancer July 18, 2024 2:26pm Breast cancer July 25, 2024 7:56am Breast cancer August 13, 2024 9:3 2am Chief Complaint Admit Date BIRADS 5 June 13, 2024 2: 27pm GO OVER PATH/DISCUSS SURGERY June 7:53am BREAST CANCER June 24, 2024 1 2:29pm BREAST RECONSTRUCTION July 02, 2024 1:05pm BREAST CA July 08, 2024 8 :52am CONSULT - BREAST July 09, 2024 1 :47pm eval LNs for breast cancer July 12:19pm discuss mri/surgery options July 2:26pm BREAST RECONSTRUCTION July 25 7:56am Stereo wire localization lumpectomy x2, SLN bx, bl August 13, 2024 9:32am Stereo wire localization lumpectomy x2, SLN bx, bl August 13, 2024 12:06pm Stereo wire localization lumpectomy x2, SLN bx, bl August 13, 2024 12:23pm S/P LUMPECTOMY August 20, 2024 2:4 5pm 3 WKS POST OP August 26, 2024 2:2 4pm Re-Excision, Breast Mass or Biopsy September 11, 2024 9:50am Amb Documentation September 11, 2024 10:5 6am Re-Excision, Breast Mass or Biopsy September 11, 2024 10:57am Reason for Visit Admit Date Left breast mass June 13, 2024 2: 27pm Breast cancer June 20, 2024 7 :53am Breast cancer July 02, 2024 1 :05pm Left breast mass July 02, 2024 1 :05pm Breast cancer July 08, 2024 8 :52am Iron deficiency anemia due to chronic bl ood loss July 08, 2024 8:52am Breast cancer July 09, 2024 1 :47pm Breast cancer July 18, 2024 2:26pm Breast cancer July 25, 2024 7:56am Breast cancer August 13, 2024 9:3 2am Breast cancer August 20, 2024 2:4 5pm Breast cancer August 26, 2024 2:2 4pm Iron deficiency anemia due to chronic bl ood loss August 26, 2024 2:24pm Breast cancer September 11, 2024 9:50 am Chief Complaint Admit Date GO OVER PATH/DISCUSS SURGERY June 7:53am BREAST CANCER June 24, 2024 1 2:29pm BREAST RECONSTRUCTION July 02, 2024 1:05pm BREAST CA July 08, 2024 8 :52am BREAST July 08, 2024 1 0:06am CONSULT - BREAST July 09, 2024 1 :47pm eval LNs for breast cancer July 12:19pm discuss mri/surgery options July 2:26pm BREAST RECONSTRUCTION July 25 7:56am Stereo wire localization lumpectomy x2, SLN bx, bl August 13, 2024 9:32am Stereo wire localization lumpectomy x2, SLN bx, bl August 13, 2024 12:06pm Stereo wire localization lumpectomy x2, SLN bx, bl August 13, 2024 12:23pm S/P LUMPECTOMY August 20, 2024 2:4 5pm 3 WKS POST OP August 26, 2024 2:2 4pm Re-Excision, Breast Mass or Biopsy September 11, 2024 9:50am Amb Documentation September 11, 2024 10:5 6am Re-Excision, Breast Mass or Biopsy September 11, 2024 10:57am RE-EXCISION OF MARGINS 4-9 September 24, 9:32am Encounter for therapeutic drug level mon itoring September 26, 2024 9:49am CHEMO ED September 26, 2024 10: 48am Unspecified ovarian cyst, unspecified si de October 09, 2024 9:09am NEW START October 10, 2024 8:07am [email or web address] October 11, 2024 1:30pm Reason for Visit Admit Date Breast cancer June 20, 2024 7 :53am Breast cancer July 02, 2024 1 :05pm Left breast mass July 02, 2024 1 :05pm Breast cancer July 08, 2024 8 :52am Iron deficiency anemia due to chronic bl ood loss July 08, 2024 8:52am Breast cancer July 09, 2024 1 :47pm Breast cancer July 18, 2024 2:26pm Breast cancer July 25, 2024 7:56am Breast cancer August 13, 2024 9:3 2am Breast cancer August 20, 2024 2:4 5pm Breast cancer August 26, 2024 2:2 4pm Iron deficiency anemia due to chronic bl ood loss August 26, 2024 2:24pm Breast cancer September 11, 2024 9:50 am Breast cancer September 24, 2024 9:3 2am Breast cancer September 26, 2024 10: 48am Encounter for education September 26, 2024 10:48am Iron deficiency anemia due to chronic bl ood loss September 26, 2024 10:48am Breast cancer October 10, 2024 8:07am Iron deficiency anemia due to chronic bl ood loss October 10, 2024 8:07am Chief Complaint Admit Date GO OVER PATH/DISCUSS SURGERY June 7:53am BREAST CANCER June 24, 2024 1 2:29pm BREAST RECONSTRUCTION July 02, 2024 1:05pm BREAST CA July 08, 2024 8 :52am BREAST July 08, 2024 1 0:06am CONSULT - BREAST July 09, 2024 1 :47pm eval LNs for breast cancer July 12:19pm discuss mri/surgery options July 2:26pm BREAST RECONSTRUCTION July 25 7:56am Stereo wire localization lumpectomy x2, SLN bx, bl August 13, 2024 9:32am Stereo wire localization lumpectomy x2, SLN bx, bl August 13, 2024 12:06pm Stereo wire localization lumpectomy x2, SLN bx, bl August 13, 2024 12:23pm S/P LUMPECTOMY August 20, 2024 2:4 5pm 3 WKS POST OP August 26, 2024 2:2 4pm Re-Excision, Breast Mass or Biopsy September 11, 2024 9:50am Amb Documentation September 11, 2024 10:5 6am Re-Excision, Breast Mass or Biopsy September 11, 2024 10:57am RE-EXCISION OF MARGINS 4-9 September 24, 2 025 9:32am Encounter for therapeutic drug level mon itoring September 26, 2024 9:49am CHEMO ED September 26, 2024 10: 48am Unspecified ovarian cyst, unspecified si de October 09, 2024 9:09am NEW START October 10, 2024 8:07am [email or web address] October 17, 2024 8:45a m 1 WEEK LABS TOX CHECK October 17, 2024 8:5 0am Reason for Visit Admit Date Breast cancer June 20, 2024 7 :53am Breast cancer July 02, 2024 1 :05pm Left breast mass July 02, 2024 1 :05pm Breast cancer July 08, 2024 8 :52am Iron deficiency anemia due to chronic bl ood loss July 08, 2024 8:52am Breast cancer July 09, 2024 1 :47pm Breast cancer July 18, 2024 2:26pm Breast cancer July 25, 2024 7:56am Breast cancer August 13, 2024 9:3 2am Breast cancer August 20, 2024 2:4 5pm Breast cancer August 26, 2024 2:2 4pm Iron deficiency anemia due to chronic bl ood loss August 26, 2024 2:24pm Breast cancer September 11, 2024 9:50 am Breast cancer September 24, 2024 9:3 2am Breast cancer September 26, 2024 10: 48am Encounter for education September 26, 2024 10:48am Iron deficiency anemia due to chronic bl ood loss September 26, 2024 10:48am Breast cancer October 10, 2024 8:07am Iron deficiency anemia due to chronic bl ood loss October 10, 2024 8:07am Breast cancer October 17, 2024 8:50a m Iron deficiency anemia due to chronic bl ood loss October 17, 2024 8:50am Chief Complaint Admit Date eval LNs for breast cancer July 12:19pm discuss mri/surgery options July 2:26pm BREAST RECONSTRUCTION July 25 7:56am Stereo wire localization lumpectomy x2, SLN bx, bl August 13, 2024 9:32am Stereo wire localization lumpectomy x2, SLN bx, bl August 13, 2024 12:06pm Stereo wire localization lumpectomy x2, SLN bx, bl August 13, 2024 12:23pm S/P LUMPECTOMY August 20, 2024 2:4 5pm 3 WKS POST OP August 26, 2024 2:2 4pm Re-Excision, Breast Mass or Biopsy September 11, 2024 9:50am Amb Documentation September 11, 2024 10:5 6am Re-Excision, Breast Mass or Biopsy September 11, 2024 10:57am RE-EXCISION OF MARGINS 4-9 September 24, 2 025 9:32am Encounter for therapeutic drug level mon itoring September 26, 2024 9:49am CHEMO ED September 26, 2024 10: 48am Unspecified ovarian cyst, unspecified si de October 09, 2024 9:09am NEW START October 10, 2024 8:07am 1 WEEK LABS TOX CHECK October 17, 2024 8:5 0am 2 WEEK LABS TX October 24, 2024 8:49a m udenyca November 07, 2024 8:45a m 2 WEEK LABS TX November 07, 2024 8:53a m Reason for Visit Admit Date Breast cancer July 18, 2024 2:26pm Breast cancer July 25, 2024 7:56am Breast cancer August 13, 2024 9:3 2am Breast cancer August 20, 2024 2:4 5pm Breast cancer August 26, 2024 2:2 4pm Iron deficiency anemia due to chronic bl ood loss August 26, 2024 2:24pm Breast cancer September 11, 2024 9:50 am Breast cancer September 24, 2024 9:3 2am Breast cancer September 26, 2024 10: 48am Encounter for education September 26, 2024 10:48am Iron deficiency anemia due to chronic bl ood loss September 26, 2024 10:48am Breast cancer October 10, 2024 8:07am Iron deficiency anemia due to chronic bl ood loss October 10, 2024 8:07am Breast cancer October 17, 2024 8:50a m Iron deficiency anemia due to chronic bl ood loss October 17, 2024 8:50am Breast cancer October 24, 2024 8:49a m Encounter for chemotherapy management Ma y 2024 8:49am Breast cancer November 07, 2024 8:53a m Encounter for chemotherapy management Ju ne 2024 8:53am Chief Complaint Admit Date BREAST RECONSTRUCTION July 25 7:56am Stereo wire localization lumpectomy x2, SLN bx, bl August 13, 2024 9:32am Stereo wire localization lumpectomy x2, SLN bx, bl August 13, 2024 12:06pm Stereo wire localization lumpectomy x2, SLN bx, bl August 13, 2024 12:23pm S/P LUMPECTOMY August 20, 2024 2:4 5pm 3 WKS POST OP August 26, 2024 2:2 4pm Re-Excision, Breast Mass or Biopsy September 11, 2024 9:50am Amb Documentation September 11, 2024 10:5 6am Re-Excision, Breast Mass or Biopsy September 11, 2024 10:57am RE-EXCISION OF MARGINS 4-9 September 24, 2 025 9:32am Encounter for therapeutic drug level mon itoring September 26, 2024 9:49am CHEMO ED September 26, 2024 10: 48am Unspecified ovarian cyst, unspecified si de October 09, 2024 9:09am NEW START October 10, 2024 8:07am 1 WEEK LABS TOX CHECK October 17, 2024 8:5 0am 2 WEEK LABS TX October 24, 2024 8:49a m 2 WEEK LABS TX November 07, 2024 8:53a m 2 WEEK TX LABS November 21, 2024 8:41 am Growth factor injection November 21, 2024 8:45am Reason for Visit Admit Date Breast cancer July 25, 2024 7:56am Breast cancer August 13, 2024 9:3 2am Breast cancer August 20, 2024 2:4 5pm Breast cancer August 26, 2024 2:2 4pm Iron deficiency anemia due to chronic bl ood loss August 26, 2024 2:24pm Breast cancer September 11, 2024 9:50 am Breast cancer September 24, 2024 9:3 2am Breast cancer September 26, 2024 10: 48am Encounter for education September 26, 2024 10:48am Iron deficiency anemia due to chronic bl ood loss September 26, 2024 10:48am Breast cancer October 10, 2024 8:07am Iron deficiency anemia due to chronic bl ood loss October 10, 2024 8:07am Breast cancer October 17, 2024 8:50a m Iron deficiency anemia due to chronic bl ood loss October 17, 2024 8:50am Breast cancer October 24, 2024 8:49a m Encounter for chemotherapy management Deven y 2024 8:49am Breast cancer November 07, 2024 8:53a m Encounter for chemotherapy management [place] ne 2024 8:53am Breast cancer November 21, 2024 8:41 am Encounter for chemotherapy management [place]per[place] ne 2024 8:41am Chief Complaint Admit Date Stereo wire localization lumpectomy x2, SLN bx, bl August 13, 2024 9:32am Stereo wire localization lumpectomy x2, SLN bx, bl August 13, 2024 12:06pm Stereo wire localization lumpectomy x2, SLN bx, bl August 13, 2024 12:23pm S/P LUMPECTOMY August 20, 2024 2:4 5pm 3 WKS POST OP August 26, 2024 2:2 4pm Re-Excision, Breast Mass or Biopsy September 11, 2024 9:50am Amb Documentation September 11, 2024 10:5 6am Re-Excision, Breast Mass or Biopsy September 11, 2024 10:57am RE-EXCISION OF MARGINS 4-9 September 24, 2 025 9:32am Encounter for therapeutic drug level mon itoring September 26, 2024 9:49am CHEMO ED September 26, 2024 10: 48am Unspecified ovarian cyst, unspecified si de October 09, 2024 9:09am NEW START October 10, 2024 8:07am 1 WEEK LABS TOX CHECK October 17, 2024 8:5 0am 2 WEEK LABS TX October 24, 2024 8:49a m 2 WEEK LABS TX November 07, 2024 8:53a m 2 WEEK TX LABS November 21, 2024 8:41 am Growth factor injection December 04, 2024 8 :15am Reason for Visit Admit Date Breast cancer August 13, 2024 9:3 2am Breast cancer August 20, 2024 2:4 5pm Breast cancer August 26, 2024 2:2 4pm Iron deficiency anemia due to chronic bl ood loss August 26, 2024 2:24pm Breast cancer September 11, 2024 9:50 am Breast cancer September 24, 2024 9:3 2am Breast cancer September 26, 2024 10: 48am Encounter for education September 26, 2024 10:48am Iron deficiency anemia due to chronic bl ood loss September 26, 2024 10:48am Breast cancer October 10, 2024 8:07am Iron deficiency anemia due to chronic bl ood loss October 10, 2024 8:07am Breast cancer October 17, 2024 8:50a m Iron deficiency anemia due to chronic bl ood loss October 17, 2024 8:50am Breast cancer October 24, 2024 8:49a m Encounter for chemotherapy management Ma y 2024 8:49am Breast cancer November 07, 2024 8:53a m Encounter for chemotherapy management Ju ne 2024 8:53am Breast cancer November 21, 2024 8:41 am Encounter for chemotherapy management Ju ne 2024 8:41am Breast cancer December 04, 2024 8:15a m Regional lymph node metastasis present J edin 2024 8:15am Iron deficiency anemia due to chronic bl ood loss December 04, 2024 8:15am Chief Complaint Admit Date S/P LUMPECTOMY August 20, 2024 2:4 5pm 3 WKS POST OP August 26, 2024 2:2 4pm Re-Excision, Breast Mass or Biopsy September 11, 2024 9:50am Amb Documentation September 11, 2024 10:5 6am Re-Excision, Breast Mass or Biopsy September 11, 2024 10:57am RE-EXCISION OF MARGINS 4-9 September 24, 2 025 9:32am Encounter for therapeutic drug level mon itoring September 26, 2024 9:49am CHEMO ED September 26, 2024 10: 48am Unspecified ovarian cyst, unspecified si de October 09, 2024 9:09am NEW START October 10, 2024 8:07am 1 WEEK LABS TOX CHECK October 17, 2024 8:5 0am 2 WEEK LABS TX October 24, 2024 8:49a m 2 WEEK LABS TX November 07, 2024 8:53a m 2 WEEK TX LABS November 21, 2024 8:41 am 2 WKS - LABS - TAXOL December 04, 2024 8:15 am Growth factor injection December 05, 2024 3 :30pm Ovarian Cysts ([facility]) December 13, 2024 2:20pm Reason for Visit Admit Date Breast cancer August 20, 2024 2:4 5pm Breast cancer August 26, 2024 2:2 4pm Iron deficiency anemia due to chronic bl ood loss August 26, 2024 2:24pm Breast cancer September 11, 2024 9:50 am Breast cancer September 24, 2024 9:3 2am Breast cancer September 26, 2024 10: 48am Encounter for education September 26, 2024 10:48am Iron deficiency anemia due to chronic bl ood loss September 26, 2024 10:48am Breast cancer October 10, 2024 8:07am Iron deficiency anemia due to chronic bl ood loss October 10, 2024 8:07am Breast cancer October 17, 2024 8:50a m Iron deficiency anemia due to chronic bl ood loss October 17, 2024 8:50am Breast cancer October 24, 2024 8:49a m Encounter for chemotherapy management Deven y 2024 8:49am Breast cancer November 07, 2024 8:53a m Encounter for chemotherapy management Ju ne 2024 8:53am Breast cancer November 21, 2024 8:41 am Encounter for chemotherapy management Ju ne 2024 8:41am Breast cancer December 04, 2024 8:15a m Regional lymph node metastasis present J edin 2024 8:15am Iron deficiency anemia due to chronic bl ood loss December 04, 2024 8:15am Chief Complaint Admit Date 3 WKS POST OP August 26, 2024 2:2 4pm Re-Excision, Breast Mass or Biopsy September 11, 2024 9:50am Amb Documentation September 11, 2024 10:5 6am Re-Excision, Breast Mass or Biopsy September 11, 2024 10:57am RE-EXCISION OF MARGINS 4-9 September 24, 025 9:32am Encounter for therapeutic drug level mon itoring September 26, 2024 9:49am CHEMO ED September 26, 2024 10: 48am Unspecified ovarian cyst, unspecified si de October 09, 2024 9:09am NEW START October 10, 2024 8:07am 1 WEEK LABS TOX CHECK October 17, 2024 8:5 0am 2 WEEK LABS TX October 24, 2024 8:49a m 2 WEEK LABS TX November 07, 2024 8:53a m 2 WEEK TX LABS November 21, 2024 8:41 am 2 WKS - LABS - TAXOL December 04, 2024 8:15 am Ovarian Cysts ([facility]) December 13, 2024 2:20pm 2 WKS - LABS - TAXOL December 19, 2024 8:4 4am Growth factor injection December 19, 2024 8:45am Reason for Visit Admit Date Breast cancer August 26, 2024 2:2 4pm Iron deficiency anemia due to chronic bl ood loss August 26, 2024 2:24pm Breast cancer September 11, 2024 9:50 am Breast cancer September 24, 2024 9:3 2am Breast cancer September 26, 2024 10: 48am Encounter for education September 26, 2024 10:48am Iron deficiency anemia due to chronic bl ood loss September 26, 2024 10:48am Breast cancer October 10, 2024 8:07am Iron deficiency anemia due to chronic bl ood loss October 10, 2024 8:07am Breast cancer October 17, 2024 8:50a m Iron deficiency anemia due to chronic bl ood loss October 17, 2024 8:50am Breast cancer October 24, 2024 8:49a m Encounter for chemotherapy management Ma y 2024 8:49am Breast cancer November 07, 2024 8:53a m Encounter for chemotherapy management Ju ne 2024 8:53am Breast cancer November 21, 2024 8:41 am Encounter for chemotherapy management Ju ne 2024 8:41am Breast cancer December 04, 2024 8:15a m Regional lymph node metastasis present J [facility] 2024 8:15am Iron deficiency anemia due to chronic bl ood loss December 04, 2024 8:15am Ovarian cyst December 13, 2024 2:20 pm Breast cancer December 19, 2024 8:44 am Encounter for chemotherapy management Ju ly 2024 8:44am Regional lymph node metastasis present J [facility] 2024 8:44am Transaminitis December 19, 2024 8:44 am Iron deficiency anemia due to chronic bl ood loss December 19, 2024 8:44am Chief Complaint Admit Date Re-Excision, Breast Mass or Biopsy September 11, 2024 9:50am Amb Documentation September 11, 2024 10:5 6am Re-Excision, Breast Mass or Biopsy September 11, 2024 10:57am RE-EXCISION OF MARGINS 4-9 September 24, 2 025 9:32am Encounter for therapeutic drug level mon itoring September 26, 2024 9:49am CHEMO ED September 26, 2024 10: 48am Unspecified ovarian cyst, unspecified si de October 09, 2024 9:09am NEW START October 10, 2024 8:07am 1 WEEK LABS TOX CHECK October 17, 2024 8:5 0am 2 WEEK LABS TX October 24, 2024 8:49a m 2 WEEK LABS TX November 07, 2024 8:53a m 2 WEEK TX LABS November 21, 2024 8:41 am 2 WKS - LABS - TAXOL December 04, 2024 8:15 am Ovarian Cysts ([facility]) December 13, 2024 2:20pm 2 WKS - LABS - TAXOL December 19, 2024 8:4 4am Growth factor injection December 19, 2024 8:45am transaminitis December 20, 2024 8:29 am Unspecified ovarian cyst, unspecified si de December 23, 2024 12:17pm Reason for Visit Admit Date Breast cancer September 11, 2024 9:50 am Breast cancer September 24, 2024 9:3 2am Breast cancer September 26, 2024 10: 48am Encounter for education September 26, 2024 10:48am Iron deficiency anemia due to chronic bl ood loss September 26, 2024 10:48am Breast cancer October 10, 2024 8:07am Iron deficiency anemia due to chronic bl ood loss October 10, 2024 8:07am Breast cancer October 17, 2024 8:50a m Iron deficiency anemia due to chronic bl ood loss October 17, 2024 8:50am Breast cancer October 24, 2024 8:49a m Encounter for chemotherapy management Deven y 2024 8:49am Breast cancer November 07, 2024 8:53a m Encounter for chemotherapy management Ju ne 2024 8:53am Breast cancer November 21, 2024 8:41 am Encounter for chemotherapy management Ju ne 2024 8:41am Breast cancer December 04, 2024 8:15a m Regional lymph node metastasis present J edin 2024 8:15am Iron deficiency anemia due to chronic bl ood loss December 04, 2024 8:15am Ovarian cyst December 13, 2024 2:20 pm Breast cancer December 19, 2024 8:44 am Encounter for chemotherapy management Ju ly 2024 8:44am Regional lymph node metastasis present J edin 2024 8:44am Transaminitis December 19, 2024 8:44 am Iron deficiency anemia due to chronic bl ood loss December 19, 2024 8:44am Chief Complaint Admit Date Re-Excision, Breast Mass or Biopsy September 11, 2024 9:50am Amb Documentation September 11, 2024 10:5 6am Re-Excision, Breast Mass or Biopsy September 11, 2024 10:57am RE-EXCISION OF MARGINS 4-9 September 24, 2 025 9:32am Encounter for therapeutic drug level mon itoring September 26, 2024 9:49am CHEMO ED September 26, 2024 10: 48am Unspecified ovarian cyst, unspecified si de October 09, 2024 9:09am NEW START October 10, 2024 8:07am 1 WEEK LABS TOX CHECK October 17, 2024 8:5 0am 2 WEEK LABS TX October 24, 2024 8:49a m 2 WEEK LABS TX November 07, 2024 8:53a m 2 WEEK TX LABS November 21, 2024 8:41 am 2 WKS - LABS - TAXOL December 04, 2024 8:15 am Ovarian Cysts ([facility]) December 13, 2024 2:20pm 2 WKS - LABS - TAXOL December 19, 2024 8:4 4am transaminitis December 20, 2024 8:29 am Unspecified ovarian cyst, unspecified si de December 23, 2024 12:17pm Growth factor injection December 26, 2024 7:30am 1 WK - LABS - TAXOL December 26, 2024 7:33 am Reason for Visit Admit Date Breast cancer September 11, 2024 9:50 am Breast cancer September 24, 2024 9:3 2am Breast cancer September 26, 2024 10: 48am Encounter for education September 26, 2024 10:48am Iron deficiency anemia due to chronic bl ood loss September 26, 2024 10:48am Breast cancer October 10, 2024 8:07am Iron deficiency anemia due to chronic bl ood loss October 10, 2024 8:07am Breast cancer October 17, 2024 8:50a m Iron deficiency anemia due to chronic bl ood loss October 17, 2024 8:50am Breast cancer October 24, 2024 8:49a m Encounter for chemotherapy management Ma y 2024 8:49am Breast cancer November 07, 2024 8:53a m Encounter for chemotherapy management Ju ne 2024 8:53am Breast cancer November 21, 2024 8:41 am Encounter for chemotherapy management Ju ne 2024 8:41am Breast cancer December 04, 2024 8:15a m Regional lymph node metastasis present J edin 2024 8:15am Iron deficiency anemia due to chronic bl ood loss December 04, 2024 8:15am Ovarian cyst December 13, 2024 2:20 pm Breast cancer December 19, 2024 8:44 am Encounter for chemotherapy management Ju ly 2024 8:44am Regional lymph node metastasis present J edin 2024 8:44am Transaminitis December 19, 2024 8:44 am Iron deficiency anemia due to chronic bl ood loss December 19, 2024 8:44am Breast cancer December 26, 2024 7:33 am Encounter for chemotherapy management Ju ly 2024 7:33am Regional lymph node metastasis present J edin 2024 7:33am Transaminitis December 26, 2024 7:33 am Iron deficiency anemia due to chronic bl ood loss December 26, 2024 7:33am Chief Complaint Admit Date Re-Excision, Breast Mass or Biopsy September 11, 2024 9:50am Amb Documentation September 11, 2024 10:5 6am Re-Excision, Breast Mass or Biopsy September 11, 2024 10:57am RE-EXCISION OF MARGINS 4-9 September 24, 025 9:32am Encounter for therapeutic drug level mon itoring September 26, 2024 9:49am CHEMO ED September 26, 2024 10: 48am Unspecified ovarian cyst, unspecified si de October 09, 2024 9:09am NEW START October 10, 2024 8:07am 1 WEEK LABS TOX CHECK October 17, 2024 8:5 0am 2 WEEK LABS TX October 24, 2024 8:49a m 2 WEEK LABS TX November 07, 2024 8:53a m 2 WEEK TX LABS November 21, 2024 8:41 am 2 WKS - LABS - TAXOL December 04, 2024 8:15 am Ovarian Cysts ([facility]) December 13, 2024 2:20pm 2 WKS - LABS - TAXOL December 19, 2024 8:4 4am transaminitis December 20, 2024 8:29 am Unspecified ovarian cyst, unspecified si de December 23, 2024 12:17pm 1 WK - LABS - TAXOL December 26, 2024 7:33 am 2 WKS - LABS - TAXOL January 02, 2025 8:2 7am Growth factor injection January 02, 2025 8:45am Reason for Visit Admit Date Breast cancer September 11, 2024 9:50 am Breast cancer September 24, 2024 9:3 2am Breast cancer September 26, 2024 10: 48am Encounter for education September 26, 2024 10:48am Iron deficiency anemia due to chronic bl ood loss September 26, 2024 10:48am Breast cancer October 10, 2024 8:07am Iron deficiency anemia due to chronic bl ood loss October 10, 2024 8:07am Breast cancer October 17, 2024 8:50a m Iron deficiency anemia due to chronic bl ood loss October 17, 2024 8:50am Breast cancer October 24, 2024 8:49a m Encounter for chemotherapy management Deven y 2024 8:49am Breast cancer November 07, 2024 8:53a m Encounter for chemotherapy management Ju ne 2024 8:53am Breast cancer November 21, 2024 8:41 am Encounter for chemotherapy management Ju ne 2024 8:41am Breast cancer December 04, 2024 8:15a m Regional lymph node metastasis present J [facility] 2024 8:15am Iron deficiency anemia due to chronic bl ood loss December 04, 2024 8:15am Ovarian cyst December 13, 2024 2:20 pm Breast cancer December 19, 2024 8:44 am Encounter for chemotherapy management Ju ly 2024 8:44am Regional lymph node metastasis present J [facility] 2024 8:44am Transaminitis December 19, 2024 8:44 am Iron deficiency anemia due to chronic bl ood loss December 19, 2024 8:44am Breast cancer December 26, 2024 7:33 am Encounter for chemotherapy management Ju ly 2024 7:33am Regional lymph node metastasis present J [facility] 2024 7:33am Transaminitis December 26, 2024 7:33 am Iron deficiency anemia due to chronic bl ood loss December 26, 2024 7:33am Breast cancer January 02, 2025 8:27 am Encounter for chemotherapy management Ju ly 2024 8:27am Regional lymph node metastasis present J [facility] 2024 8:27am Transaminitis January 02, 2025 8:27 am Iron deficiency anemia due to chronic bl ood loss January 02, 2025 8:27am Chief Complaint Admit Date RE-EXCISION OF MARGINS 4-9 September 24, 2 025 9:32am Encounter for therapeutic drug level mon itoring September 26, 2024 9:49am CHEMO ED September 26, 2024 10: 48am Unspecified ovarian cyst, unspecified si de October 09, 2024 9:09am NEW START October 10, 2024 8:07am 1 WEEK LABS TOX CHECK October 17, 2024 8:5 0am 2 WEEK LABS TX October 24, 2024 8:49a m 2 WEEK LABS TX November 07, 2024 8:53a m 2 WEEK TX LABS November 21, 2024 8:41 am 2 WKS - LABS - TAXOL December 04, 2024 8:15 am Ovarian Cysts ([facility]) December 13, 2024 2:20pm 2 WKS - LABS - TAXOL December 19, 2024 8:4 4am transaminitis December 20, 2024 8:29 am Unspecified ovarian cyst, unspecified si de December 23, 2024 12:17pm 1 WK - LABS - TAXOL December 26, 2024 7:33 am 2 WKS - LABS - TAXOL January 02, 2025 8:2 7am TOX CHECK - LABS January 16, 2025 8: 13am Nyvepria January 16, 2025 8: 15am Reason for Visit Admit Date Breast cancer September 24, 2024 9:3 2am Breast cancer September 26, 2024 10: 48am Encounter for education September 26, 2024 10:48am Iron deficiency anemia due to chronic bl ood loss September 26, 2024 10:48am Breast cancer October 10, 2024 8:07am Iron deficiency anemia due to chronic bl ood loss October 10, 2024 8:07am Breast cancer October 17, 2024 8:50a m Iron deficiency anemia due to chronic bl ood loss October 17, 2024 8:50am Breast cancer October 24, 2024 8:49a m Encounter for chemotherapy management Deven y 2024 8:49am Breast cancer November 07, 2024 8:53a m Encounter for chemotherapy management Esperanza 2024 8:53am Breast cancer November 21, 2024 8:41 am Encounter for chemotherapy management Esperanza ne 2024 8:41am Breast cancer December 04, 2024 8:15a m Regional lymph node metastasis present J [facility] 2024 8:15am Iron deficiency anemia due to chronic bl ood loss December 04, 2024 8:15am Ovarian cyst December 13, 2024 2:20 pm Breast cancer December 19, 2024 8:44 am Encounter for chemotherapy management Esperanza ly 2024 8:44am Regional lymph node metastasis present J [facility] 2024 8:44am Transaminitis December 19, 2024 8:44 am Iron deficiency anemia due to chronic bl ood loss December 19, 2024 8:44am Breast cancer December 26, 2024 7:33 am Encounter for chemotherapy management Esperanza ly 2024 7:33am Regional lymph node metastasis present J [facility] 2024 7:33am Transaminitis December 26, 2024 7:33 am Iron deficiency anemia due to chronic bl ood loss December 26, 2024 7:33am Breast cancer January 02, 2025 8:27 am Encounter for chemotherapy management Esperanza garibay 2024 8:27am Regional lymph node metastasis present J [facility] 2024 8:27am Transaminitis January 02, 2025 8:27 am Iron deficiency anemia due to chronic bl ood loss January 02, 2025 8:27am Breast cancer January 16, 2025 8: 13am Regional lymph node metastasis present A ugust 2024 8:13am Iron deficiency anemia due to chronic bl ood loss January 16, 2025 8:13am Chief Complaint Admit Date Unspecified ovarian cyst, unspecified si de October 09, 2024 9:09am NEW START October 10, 2024 8:07am 1 WEEK LABS TOX CHECK October 17, 2024 8:5 0am 2 WEEK LABS TX October 24, 2024 8:49a m 2 WEEK LABS TX November 07, 2024 8:53a m 2 WEEK TX LABS November 21, 2024 8:41 am 2 WKS - LABS - TAXOL December 04, 2024 8:15 am Ovarian Cysts ([facility]) December 13, 2024 2:20pm 2 WKS - LABS - TAXOL December 19, 2024 8:4 4am transaminitis December 20, 2024 8:29 am Unspecified ovarian cyst, unspecified si de December 23, 2024 12:17pm 1 WK - LABS - TAXOL December 26, 2024 7:33 am 2 WKS - LABS - TAXOL January 02, 2025 8:2 7am TOX CHECK - LABS January 16, 2025 8: 13am 2 WKS - LABS - TAXOL January 30, 2025 9 :14am Nyvepria January 30, 2025 9: 15am Reason for Visit Admit Date Breast cancer October 10, 2024 8:07am Iron deficiency anemia due to chronic bl ood loss October 10, 2024 8:07am Breast cancer October 17, 2024 8:50a m Iron deficiency anemia due to chronic bl ood loss October 17, 2024 8:50am Breast cancer October 24, 2024 8:49a m Encounter for chemotherapy management Deven y 2024 8:49am Breast cancer November 07, 2024 8:53a m Encounter for chemotherapy management Ju ne 2024 8:53am Breast cancer November 21, 2024 8:41 am Encounter for chemotherapy management Ju ne 2024 8:41am Breast cancer December 04, 2024 8:15a m Regional lymph node metastasis present J edin 2024 8:15am Iron deficiency anemia due to chronic bl ood loss December 04, 2024 8:15am Ovarian cyst December 13, 2024 2:20 pm Breast cancer December 19, 2024 8:44 am Encounter for chemotherapy management Ju ly 2024 8:44am Regional lymph node metastasis present J edin 2024 8:44am Transaminitis December 19, 2024 8:44 am Iron deficiency anemia due to chronic bl ood loss December 19, 2024 8:44am Breast cancer December 26, 2024 7:33 am Encounter for chemotherapy management Ju ly 2024 7:33am Regional lymph node metastasis present J edin 2024 7:33am Transaminitis December 26, 2024 7:33 am Iron deficiency anemia due to chronic bl ood loss December 26, 2024 7:33am Breast cancer January 02, 2025 8:27 am Encounter for chemotherapy management Ju ly 2024 8:27am Regional lymph node metastasis present J edin 2024 8:27am Transaminitis January 02, 2025 8:27 am Iron deficiency anemia due to chronic bl ood loss January 02, 2025 8:27am Breast cancer January 16, 2025 8: 13am Regional lymph node metastasis present A ugust 2024 8:13am Iron deficiency anemia due to chronic bl ood loss January 16, 2025 8:13am Breast cancer January 30, 2025 9: 14am Regional lymph node metastasis present A ugust 2024 9:14am Iron deficiency anemia due to chronic bl ood loss January 30, 2025 9:14am Chief Complaint Admit Date 2 WEEK LABS TX October 24, 2024 8:49a m 2 WEEK LABS TX November 07, 2024 8:53a m 2 WEEK TX LABS November 21, 2024 8:41 am 2 WKS - LABS - TAXOL December 04, 2024 8:15 am Ovarian Cysts ([facility]) December 13, 2024 2:20pm 2 WKS - LABS - TAXOL December 19, 2024 8:4 4am transaminitis December 20, 2024 8:29 am Unspecified ovarian cyst, unspecified si de December 23, 2024 12:17pm 1 WK - LABS - TAXOL December 26, 2024 7:33 am 2 WKS - LABS - TAXOL January 02, 2025 8:2 7am TOX CHECK - LABS January 16, 2025 8: 13am 2 WKS - LABS - TAXOL January 30, 2025 9 :14am Nyvepria January 31, 2025 2: 00pm Reason for Visit Admit Date Breast cancer October 24, 2024 8:49a m Encounter for chemotherapy management Ma y 2024 8:49am Breast cancer November 07, 2024 8:53a m Encounter for chemotherapy management Esperanza ne 2024 8:53am Breast cancer November 21, 2024 8:41 am Encounter for chemotherapy management Esperanza ne 2024 8:41am Breast cancer December 04, 2024 8:15a m Regional lymph node metastasis present J edin 2024 8:15am Iron deficiency anemia due to chronic bl ood loss December 04, 2024 8:15am Ovarian cyst December 13, 2024 2:20 pm Breast cancer December 19, 2024 8:44 am Encounter for chemotherapy management Espearnza ly 2024 8:44am Regional lymph node metastasis present J edin 2024 8:44am Transaminitis December 19, 2024 8:44 am Iron deficiency anemia due to chronic bl ood loss December 19, 2024 8:44am Breast cancer December 26, 2024 7:33 am Encounter for chemotherapy management Ju ly 2024 7:33am Regional lymph node metastasis present J edin 2024 7:33am Transaminitis December 26, 2024 7:33 am Iron deficiency anemia due to chronic bl ood loss December 26, 2024 7:33am Breast cancer January 02, 2025 8:27 am Encounter for chemotherapy management Ju ly 2024 8:27am Regional lymph node metastasis present J [facility] 2024 8:27am Transaminitis January 02, 2025 8:27 am Iron deficiency anemia due to chronic bl ood loss January 02, 2025 8:27am Breast cancer January 16, 2025 8: 13am Regional lymph node metastasis present A ugust 2024 8:13am Iron deficiency anemia due to chronic bl ood loss January 16, 2025 8:13am Breast cancer January 30, 2025 9: 14am Encounter for chemotherapy management Karely valle 2024 9:14am Regional lymph node metastasis present A ugust 2024 9:14am Iron deficiency anemia due to chronic bl ood loss January 30, 2025 9:14am Chief Complaint Admit Date 2 WEEK LABS TX November 07, 2024 8:53a m 2 WEEK TX LABS November 21, 2024 8:41 am 2 WKS - LABS - TAXOL December 04, 2024 8:15 am Ovarian Cysts ([facility]) December 13, 2024 2:20pm 2 WKS - LABS - TAXOL December 19, 2024 8:4 4am transaminitis December 20, 2024 8:29 am Unspecified ovarian cyst, unspecified si de December 23, 2024 12:17pm 1 WK - LABS - TAXOL December 26, 2024 7:33 am 2 WKS - LABS - TAXOL January 02, 2025 8:2 7am TOX CHECK - LABS January 16, 2025 8: 13am 2 WKS - LABS - TAXOL January 30, 2025 9 :14am Nyvepria January 31, 2025 2: 00pm Follow up-breast February 20, 2025 12:27pm 3 WKS - LABS GET [facility] LOAN COORDINATOR ONC NOTES S eptember 2024 1:53pm . February 20, 2025 2:00pm Reason for Visit Admit Date Encounter for chemotherapy management Ju ne 2024 8:53am Breast cancer November 07, 2024 8:53a m Encounter for chemotherapy management Ju ne 2024 8:41am Breast cancer November 21, 2024 8:41 am Breast cancer December 04, 2024 8:15a m Iron deficiency anemia due to chronic bl ood loss December 04, 2024 8:15am Regional lymph node metastasis present J edin 2024 8:15am Ovarian cyst December 13, 2024 2:20 pm Encounter for chemotherapy management Ju ly 2024 8:44am Transaminitis December 19, 2024 8:44 am Breast cancer December 19, 2024 8:44 am Iron deficiency anemia due to chronic bl ood loss December 19, 2024 8:44am Regional lymph node metastasis present J edin 2024 8:44am Encounter for chemotherapy management Ju ly 2024 7:33am Transaminitis December 26, 2024 7:33 am Breast cancer December 26, 2024 7:33 am Iron deficiency anemia due to chronic bl ood loss December 26, 2024 7:33am Regional lymph node metastasis present J edin 2024 7:33am Encounter for chemotherapy management Ju ly 2024 8:27am Transaminitis January 02, 2025 8:27 am Breast cancer January 02, 2025 8:27 am Iron deficiency anemia due to chronic bl ood loss January 02, 2025 8:27am Regional lymph node metastasis present J edin 2024 8:27am Breast cancer January 16, 2025 8: 13am Iron deficiency anemia due to chronic bl ood loss January 16, 2025 8:13am Regional lymph node metastasis present A ugust 2024 8:13am Encounter for chemotherapy management Au leonard 2024 9:14am Breast cancer January 30, 2025 9: 14am Iron deficiency anemia due to chronic bl ood loss January 30, 2025 9:14am Regional lymph node metastasis present A ugust 2024 9:14am Breast cancer, left breast February 12:27pm Breast cancer February 20, 2025 1:53pm Iron deficiency anemia due to chronic bl ood loss February 20, 2025 1:53pm Regional lymph node metastasis present S epteer 2024 1:53pm Chief Complaint Admit Date 2 WEEK LABS TX November 07, 2024 8:53a m 2 WEEK TX LABS November 21, 2024 8:41 am 2 WKS - LABS - TAXOL December 04, 2024 8:15 am Ovarian Cysts ([facility]) December 13, 2024 2:20pm 2 WKS - LABS - TAXOL December 19, 2024 8:4 4am transaminitis December 20, 2024 8:29 am Unspecified ovarian cyst, unspecified si de December 23, 2024 12:17pm 1 WK - LABS - TAXOL December 26, 2024 7:33 am 2 WKS - LABS - TAXOL January 02, 2025 8:2 7am TOX CHECK - LABS January 16, 2025 8: 13am 2 WKS - LABS - TAXOL January 30, 2025 9 :14am Nyvepria January 31, 2025 2: 00pm Follow up-breast February 20, 2025 12:27pm 3 WKS - LABS GET [facility] LOAN COORDINATOR ONC NOTES S [facility] 2024 1:53pm . March 05, 2025 9: 20am OTV March 05, 2025 9: 23am Reason for Visit Admit Date Encounter for chemotherapy management Esperanza ne 2024 8:53am Breast cancer November 07, 2024 8:53a m Encounter for chemotherapy management Esperanza ne 2024 8:41am Breast cancer November 21, 2024 8:41 am Breast cancer December 04, 2024 8:15a m Iron deficiency anemia due to chronic bl ood loss December 04, 2024 8:15am Regional lymph node metastasis present J edin 2024 8:15am Ovarian cyst December 13, 2024 2:20 pm Encounter for chemotherapy management Esperanza ly 2024 8:44am Transaminitis December 19, 2024 8:44 am Breast cancer December 19, 2024 8:44 am Iron deficiency anemia due to chronic bl ood loss December 19, 2024 8:44am Regional lymph node metastasis present J edin 2024 8:44am Encounter for chemotherapy management Ju ly 2024 7:33am Transaminitis December 26, 2024 7:33 am Breast cancer December 26, 2024 7:33 am Iron deficiency anemia due to chronic bl ood loss December 26, 2024 7:33am Regional lymph node metastasis present J edin 2024 7:33am Encounter for chemotherapy management Ju ly 2024 8:27am Transaminitis January 02, 2025 8:27 am Breast cancer January 02, 2025 8:27 am Iron deficiency anemia due to chronic bl ood loss January 02, 2025 8:27am Regional lymph node metastasis present J [facility] 2024 8:27am Breast cancer January 16, 2025 8: 13am Iron deficiency anemia due to chronic bl ood loss January 16, 2025 8:13am Regional lymph node metastasis present A ugust 2024 8:13am Encounter for chemotherapy management [facility] 2024 9:14am Breast cancer January 30, 2025 9: 14am Iron deficiency anemia due to chronic bl ood loss January 30, 2025 9:14am Regional lymph node metastasis present A ugust 2024 9:14am Breast cancer, left breast February 12:27pm Breast cancer February 20, 2025 1:53pm Iron deficiency anemia due to chronic bl ood loss February 20, 2025 1:53pm Regional lymph node metastasis present S [facility] 2024 1:53pm Breast cancer, left breast March 05, 2025 9:23am Chief Complaint Admit Date 2 WEEK TX LABS November 21, 2024 8:41 am 2 WKS - LABS - TAXOL December 04, 2024 8:15 am Ovarian Cysts ([facility]) December 13, 2024 2:20pm 2 WKS - LABS - TAXOL December 19, 2024 8:4 4am transaminitis December 20, 2024 8:29 am Unspecified ovarian cyst, unspecified si de December 23, 2024 12:17pm 1 WK - LABS - TAXOL December 26, 2024 7:33 am 2 WKS - LABS - TAXOL January 02, 2025 8:2 7am TOX CHECK - LABS January 16, 2025 8: 13am 2 WKS - LABS - TAXOL January 30, 2025 9 :14am Nyvepria January 31, 2025 2: 00pm Follow up-breast February 20, 2025 12:27pm 3 WKS - LABS GET [facility] LOAN COORDINATOR ONC NOTES S eptember 2024 1:53pm OTV March 05, 2025 9: 23am OTV March 12, 2025 9: 11am . March 12, 2025 9: 20am Reason for Visit Admit Date Encounter for chemotherapy management [place] 2024 8:41am Breast cancer November 21, 2024 8:41 am Breast cancer December 04, 2024 8:15a m Iron deficiency anemia due to chronic bl ood loss December 04, 2024 8:15am Regional lymph node metastasis present J [facility] 2024 8:15am Ovarian cyst December 13, 2024 2:20 pm Encounter for chemotherapy management [place] 2024 8:44am Transaminitis December 19, 2024 8:44 am Breast cancer December 19, 2024 8:44 am Iron deficiency anemia due to chronic bl ood loss December 19, 2024 8:44am Regional lymph node metastasis present J [facility] 2024 8:44am Encounter for chemotherapy management [place] 2024 7:33am Transaminitis December 26, 2024 7:33 am Breast cancer December 26, 2024 7:33 am Iron deficiency anemia due to chronic bl ood loss December 26, 2024 7:33am Regional lymph node metastasis present J [facility] 2024 7:33am Encounter for chemotherapy management [place] 2024 8:27am Transaminitis January 02, 2025 8:27 am Breast cancer January 02, 2025 8:27 am Iron deficiency anemia due to chronic bl ood loss January 02, 2025 8:27am Regional lymph node metastasis present J [facility] 2024 8:27am Breast cancer January 16, 2025 8: 13am Iron deficiency anemia due to chronic bl ood loss January 16, 2025 8:13am Regional lymph node metastasis present A ugust 2024 8:13am Encounter for chemotherapy management [facility] 2024 9:14am Breast cancer January 30, 2025 9: 14am Iron deficiency anemia due to chronic bl ood loss January 30, 2025 9:14am Regional lymph node metastasis present A ugust 2024 9:14am Breast cancer, left breast February 12:27pm Breast cancer February 20, 2025 1:53pm Iron deficiency anemia due to chronic bl ood loss February 20, 2025 1:53pm Regional lymph node metastasis present S eptember 2024 1:53pm Breast cancer, left breast March 05, 2025 9:23am Chief Complaint Admit Date 2 WKS - LABS - TAXOL December 04, 2024 8:15 am Ovarian Cysts ([facility]) December 13, 2024 2:20pm 2 WKS - LABS - TAXOL December 19, 2024 8:4 4am transaminitis December 20, 2024 8:29 am Unspecified ovarian cyst, unspecified si de December 23, 2024 12:17pm 1 WK - LABS - TAXOL December 26, 2024 7:33 am 2 WKS - LABS - TAXOL January 02, 2025 8:2 7am TOX CHECK - LABS January 16, 2025 8: 13am 2 WKS - LABS - TAXOL January 30, 2025 9 :14am Follow up-breast February 20, 2025 12:27pm 3 WKS - LABS GET [facility] LOAN COORDINATOR ONC NOTES [facility] 2024 1:53pm OTV March 05, 2025 9: 23am OTV March 12, 2025 9: 11am Nyvepria March 18, 2025 9 :00am SCREENING Asymptomatic menopausal state March 18, 2025 9:49am OTV March 19, 2025 9 :17am OTV March 26, 2025 9 :19am . April 01, 2025 9 :20am Reason for Visit Admit Date Breast cancer December 04, 2024 8:15a m Iron deficiency anemia due to chronic bl ood loss December 04, 2024 8:15am Regional lymph node metastasis present J [facility] 2024 8:15am Ovarian cyst December 13, 2024 2:20 pm Encounter for chemotherapy management [place] 2024 8:44am Transaminitis December 19, 2024 8:44 am Breast cancer December 19, 2024 8:44 am Iron deficiency anemia due to chronic bl ood loss December 19, 2024 8:44am Regional lymph node metastasis present J [facility] 2024 8:44am Encounter for chemotherapy management [place] 2024 7:33am Transaminitis December 26, 2024 7:33 am Breast cancer December 26, 2024 7:33 am Iron deficiency anemia due to chronic bl ood loss December 26, 2024 7:33am Regional lymph node metastasis present J [facility] 2024 7:33am Encounter for chemotherapy management [place] 2024 8:27am Transaminitis January 02, 2025 8:27 am Breast cancer January 02, 2025 8:27 am Iron deficiency anemia due to chronic bl ood loss January 02, 2025 8:27am Regional lymph node metastasis present J [facility] 2024 8:27am Breast cancer January 16, 2025 8: 13am Iron deficiency anemia due to chronic bl ood loss January 16, 2025 8:13am Regional lymph node metastasis present A ugust 2024 8:13am Encounter for chemotherapy management [facility] 2024 9:14am Breast cancer January 30, 2025 9: 14am Iron deficiency anemia due to chronic bl ood loss January 30, 2025 9:14am Regional lymph node metastasis present A ugust 2024 9:14am Breast cancer, left breast February 12:27pm Breast cancer February 20, 2025 1:53pm Iron deficiency anemia due to chronic bl ood loss February 20, 2025 1:53pm Regional lymph node metastasis present S [facility] 2024 1:53pm Breast cancer, left breast March 05, 2025 9:23am Breast cancer, left breast March 12, 2025 9:11am Breast cancer, left breast March 19, 2025 9:17am Breast cancer, left breast March 26, 2025 9:19am Chief Complaint Admit Date 2 WKS - LABS - TAXOL December 19, 2024 8:4 4am transaminitis December 20, 2024 8:29 am Unspecified ovarian cyst, unspecified si de December 23, 2024 12:17pm 1 WK - LABS - TAXOL December 26, 2024 7:33 am 2 WKS - LABS - TAXOL January 02, 2025 8:2 7am TOX CHECK - LABS January 16, 2025 8: 13am 2 WKS - LABS - TAXOL January 30, 2025 9 :14am Follow up-breast February 20, 2025 12:27pm 3 WKS - LABS GET [facility] LOAN COORDINATOR ONC NOTES S eptember 2024 1:53pm OTV March 05, 2025 9: 23am OTV March 12, 2025 9: 11am SCREENING Asymptomatic menopausal state March 18, 2025 9:49am OTV March 19, 2025 9 :17am OTV March 26, 2025 9 :19am OTV April 02, 2025 9 :16am BS April 09, 2025 8 :47am OTV April 09, 2025 9 :34am . April 11, 2025 9 :20am Amb Documentation April 11, 2025 9 :36am SCP/CHEMO ED April 14, 2025 1:49pm Nyvepria April 14, 2025 3:30pm Reason for Visit Admit Date Encounter for chemotherapy management [place] 2024 8:44am Transaminitis December 19, 2024 8:44 am Breast cancer December 19, 2024 8:44 am Iron deficiency anemia due to chronic bl ood loss December 19, 2024 8:44am Regional lymph node metastasis present J [facility] 2024 8:44am Encounter for chemotherapy management [place] 2024 7:33am Transaminitis December 26, 2024 7:33 am Breast cancer December 26, 2024 7:33 am Iron deficiency anemia due to chronic bl ood loss December 26, 2024 7:33am Regional lymph node metastasis present J [facility] 2024 7:33am Encounter for chemotherapy management [place] 2024 8:27am Transaminitis January 02, 2025 8:27 am Breast cancer January 02, 2025 8:27 am Iron deficiency anemia due to chronic bl ood loss January 02, 2025 8:27am Regional lymph node metastasis present J [facility] 2024 8:27am Breast cancer January 16, 2025 8: 13am Iron deficiency anemia due to chronic bl ood loss January 16, 2025 8:13am Regional lymph node metastasis present A [place]ust 2024 8:13am Encounter for chemotherapy management [facility] 2024 9:14am Breast cancer January 30, 2025 9: 14am Iron deficiency anemia due to chronic bl ood loss January 30, 2025 9:14am Regional lymph node metastasis present A ugust 2024 9:14am Breast cancer, left breast February 12:27pm Breast cancer February 20, 2025 1:53pm Iron deficiency anemia due to chronic bl ood loss February 20, 2025 1:53pm Regional lymph node metastasis present S eptember 2024 1:53pm Breast cancer, left breast March 05, 2025 9:23am Breast cancer, left breast March 12, 2025 9:11am Breast cancer, left breast March 19, 2025 9:17am Breast cancer, left breast March 26, 2025 9:19am Breast cancer, left breast April 02, 2025 9:16am Insomnia April 09, 2025 8 :47am Ovarian cyst April 09, 2025 8 :47am Breast cancer, left breast April 09, 2025 9:34am Encounter for education April 14 1:49pm Breast cancer April 14, 2025 1:49pm Regional lymph node metastasis present N ovember 2024 1:49pm Additional Source Comments INFORMATION SOURCE (unrecogn ized section and content) DATE CREATED AUTHOR 06/14/2024 [facility] DATE CREATED AUTHOR AUTHOR'S ORGANIZ ATION 06/21/2024 [facility] DATE CREATED AUTHOR AUTHOR'S ORGANIZ ATION 06/28/2024 [facility] DATE CREATED AUTHOR AUTHOR'S ORGANIZ ATION 08/30/2024 [facility] DATE CREATED AUTHOR AUTHOR'S ORGANIZ ATION 02/20/2025 [facility] DATE CREATED AUTHOR AUTHOR'S ORGANIZ ATION 04/17/2025 [facility] Care Teams (unrecognized sec tion and content) Team Status: Active Member Role Status Dates Romelia Martin PA Primary Care Provider Active Team Status: Inactive Member Role Status Dates Dr. Gareth Mcdaniel MD Attending Provider Active Start: June 13, 2024 End: June 13, 2024 Romelia Martin , PA Primary Care Provider Active S tart: June 13, 2024 End: June 13, 2024 Romelia Martin , PA Referring Provider Active Star t: June 13, 2024 End: June 13, 2024 Team Status: Inactive Member Role Status Dates Romelia Martin , PA Primary Care Provider Active S tart: June 13, 2024 End: June 13, 2024 Dr. Gareth Mcdaniel MD Attending Provider Active Start: June 13, 2024 End: June 13, 2024 Team Status: Inactive Member Role Status Dates Romeliania Martin , PA Primary Care Provider Active S tart: June 20, 2024 End: June 20, 2024 Romelia Veronica , PA Referring Provider Active Star t: June 20, 2024 End: June 20, 2024 Dr. Gareth Mcdaniel MD Attending Provider Active Start: June 20, 2024 End: June 20, 2024 Team Status: Inactive Member Role Status Dates Romeliania Martin , PA Primary Care Provider Active S tart: June 24, 2024 End: June 24, 2024 Dr. Gareth Mcdaniel MD Attending Provider Active Start: June 24, 2024 End: June 24, 2024 Dr. Gareth Mcdaniel MD Referring Provider Active Start: June 24, 2024 End: June 24, 2024 Team Status: Inactive Member Role Status Dates Romelia Martin , PA Primary Care Provider Active S tart: July 02, 2024 End: July 02, 2024 Romelia Martin , PA Referring Provider Active Star t: July 02, 2024 End: July 02, 2024 Dr. Florina Hall MD Attending Provider Active Start: July 02, 2024 End: July 02, 2024 Team Status: Inactive Member Role Status Dates Romelia Martin , PA Primary Care Provider Active S tart: July 08, 2024 End: July 08, 2024 Dr. Bandar Stubbs MD Attending Provider Active Start: July 08, 2024 End: July 08, 2024 Dr. Gareth Mcdaniel MD Referring Provider Active Start: July 08, 2024 End: July 08, 2024 Team Status: Active Member Role Status Dates Romeliania Martin , PA Primary Care Provider Active S tart: July 08, 2024 Dr. Bandar Stubbs MD Attending Provider Active Start: July 08, 2024 Dr. Bandar Stubbs MD Referring Provider Active Start: July 08, 2024 Team Status: Inactive Member Role Status Dates Romelia Martin , PA Primary Care Provider Active S tart: July 09, 2024 End: July 09, 2024 Romelia Martin , PA Referring Provider Active Star t: July 09, 2024 End: July 09, 2024 Dr. Wellington Moctezuma DO Attending Provider Active Start: July 09, 2024 End: July 09, 2024 Team Status: Inactive Member Role Status Dates Romelia Martin , PA Primary Care Provider Active S tart: July 16, 2024 End: July 16, 2024 Dr. Wellington Moctezuma DO Attending Provider Active Start: July 16, 2024 End: July 16, 2024 Dr. Wellington Moctezuma DO Referring Provider Active Start: July 16, 2024 End: July 16, 2024 Team Status: Inactive Member Role Status Dates Romelia Martin , PA Primary Care Provider Active S tart: July 18, 2024 End: July 18, 2024 Romelia Martin , PA Referring Provider Active Star t: July 18, 2024 End: July 18, 2024 Dr. Gareth Mcdaniel MD Attending Provider Active Start: July 18, 2024 End: July 18, 2024 Team Status: Inactive Member Role Status Dates Romelia Martin , PA Primary Care Provider Active S tart: July 25, 2024 End: July 25, 2024 Romelia Martin , PA Referring Provider Active Star t: July 25, 2024 End: July 25, 2024 Dr. Angel Bernardo MD Attending Provider Active Start: July 25, 2024 End: July 25, 2024 Team Status: Inactive Member Role Status Dates Romelia Martin , PA Primary Care Provider Active S tart: August 13, 2024 End: August 13, 2024 Dr. Gareth Mcdaniel MD Attending Provider Active Start: August 13, 2024 End: August 13, 2024 Dr. Gareth Mcdaniel MD Referring Provider Active Start: August 13, 2024 End: August 13, 2024 Team Status: Active Member Role Status Dates TATE Genao Primary Care Provider Active S tart: August 13, 2024 Dr. Gareth Mcdaniel MD Attending Provider Active Start: August 13, 2024 Dr. Gareth Mcdaniel MD Referring Provider Active Start: August 13, 2024 Dr. Gareth Mcdaniel MD Other Provider Active St art: August 13, 2024 Team Status: Active Member Role Status Dates Romeliania Martin PA Primary Care Provider Active S tart: August 13, 2024 Dr. Gareth Mcdaniel MD Referring Provider Active Start: August 13, 2024 Dr. Gareth Mcdaniel MD Other Provider Active St art: August 13, 2024 Dr. Angel Bernardo MD Attending Provider Active Start: August 13, 2024 Team Status: Inactive Member Role Status Dates Romelia Veronica , PA Primary Care Provider Active S tart: August 20, 2024 End: August 20, 2024 Romelia Martin , PA Referring Provider Active Star t: August 20, 2024 End: August 20, 2024 Dr. Gareth Mcdaniel MD Attending Provider Active Start: August 20, 2024 End: August 20, 2024 Team Status: Inactive Member Role Status Dates Romelia Martin , PA Primary Care Provider Active S tart: August 26, 2024 End: August 26, 2024 Romelia Martin , PA Referring Provider Active Star t: August 26, 2024 End: August 26, 2024 Dr. Bandar Stubbs MD Attending Provider Active Start: August 26, 2024 End: August 26, 2024 Team Status: Inactive Member Role Status Dates Romeliania Martin , PA Primary Care Provider Active S tart: September 11, 2024 End: September 11, 2024 Dr. Gareth Mcdaniel MD Attending Provider Active Start: September 11, 2024 End: September 11, 2024 Dr. Gareth Mcdaniel MD Referring Provider Active Start: September 11, 2024 End: September 11, 2024 Team Status: Active Member Role Status Dates Romelia Martin , PA Primary Care Provider Active S tart: September 11, 2024 Dr. Gareth Mcdaniel MD Attending Provider Active Start: September 11, 2024 Team Status: Active Member Role Status Dates Romelia Martin PA Primary Care Provider Active S tart: September 11, 2024 Dr. Gareth Mcdaniel MD Attending Provider Active Start: September 11, 2024 Dr. Gareth Mcdaniel MD Referring Provider Active Start: September 11, 2024 Dr. Gareth Mcdaniel MD Other Provider Active St art: September 11, 2024 Team Status: Inactive Member Role Status Dates Romeliania Martin PA Primary Care Provider Active S tart: September 24, 2024 End: September 24, 2024 Romeliania Martin PA Referring Provider Active Star t: September 24, 2024 End: September 24, 2024 Dr. Gareth Mcdaniel MD Attending Provider Active Start: September 24, 2024 End: September 24, 2024 Team Status: Inactive Member Role Status Dates Romeliaina Martin PA Primary Care Provider Active S tart: September 26, 2024 End: September 26, 2024 Dr. Bandar Stubbs MD Attending Provider Active Start: September 26, 2024 End: September 26, 2024 Dr. Bandar Stubbs MD Referring Provider Active Start: September 26, 2024 End: September 26, 2024 Team Status: Active Member Role Status Dates Romelia Martin , PA Primary Care Provider Active S tart: September 26, 2024 Dr. Jose Zavala MD Attending Provider Active S tart: September 26, 2024 Team Status: Inactive Member Role Status Dates Romelia Martin , PA Primary Care Provider Active S tart: September 26, 2024 End: September 26, 2024 Romelia Bean , PA Referring Provider Active Star t: September 26, 2024 End: September 26, 2024 Alyssa Gillespie DIRECTOR PHARMACEUTICAL, DIRECTOR PHARMACEUTICAL-C Attending Provider Active Start: September 26, 2024 End: September 26, 2024 Team Status: Inactive Member Role Status Dates Romeliania Martin , PA Primary Care Provider Active S tart: October 09, 2024 End: October 09, 2024 Dr. Bandar Stubbs MD Attending Provider Active Start: October 09, 2024 End: October 09, 2024 Dr. Bandar Stubbs MD Referring Provider Active Start: October 09, 2024 End: October 09, 2024 Team Status: Inactive Member Role Status Dates TATE Genao Primary Care Provider Active S tart: October 10, 2024 End: October 10, 2024 TATE Genao Referring Provider Active Star t: October 10, 2024 End: October 10, 2024 Alyssa Gillespie DIRECTOR PHARMACEUTICAL, DIRECTOR PHARMACEUTICAL-C Attending Provider Active Start: October 10, 2024 End: October 10, 2024 Team Status: Active Member Role Status Dates TATE Genao Primary Care Provider Active S tart: October 11, 2024 Alyssa Gillespie DIRECTOR PHARMACEUTICAL, DIRECTOR PHARMACEUTICAL-C Other Provider Active St art: October 11, 2024 Dr. Bandar Stubbs MD Attending Provider Active Start: October 11, 2024 Dr. Bandar Stubbs MD Referring Provider Active Start: October 11, 2024 Team Status: Active Member Role Status Dates TATE Genao Primary Care Provider Active S tart: October 17, 2024 Alyssa Gillespie DIRECTOR PHARMACEUTICAL, DIRECTOR PHARMACEUTICAL-C Other Provider Active St art: October 17, 2024 Dr. Bandar Stubbs MD Attending Provider Active Start: October 17, 2024 Dr. Bandar Stubbs MD Referring Provider Active Start: October 17, 2024 Team Status: Inactive Member Role Status Dates TATE Genao Primary Care Provider Active S tart: October 17, 2024 End: October 17, 2024 TATE Genao Referring Provider Active Star t: October 17, 2024 End: October 17, 2024 Alyssa Gillespie DIRECTOR PHARMACEUTICAL, DIRECTOR PHARMACEUTICAL-C Attending Provider Active Start: October 17, 2024 End: October 17, 2024 Team Status: Inactive Member Role Status Dates TATE Genao Primary Care Provider Active S tart: October 24, 2024 End: October 24, 2024 TATE Genao Referring Provider Active Star t: October 24, 2024 End: October 24, 2024 Alyssa Gillespie DIRECTOR PHARMACEUTICAL, DIRECTOR PHARMACEUTICAL-C Attending Provider Active Start: October 24, 2024 End: October 24, 2024 Team Status: Active Member Role Status Dates TATE Genao Primary Care Provider Active S tart: November 07, 2024 Alyssa Gillespie DIRECTOR PHARMACEUTICAL, DIRECTOR PHARMACEUTICAL-C Other Provider Active St art: November 07, 2024 Dr. Bandar Stubbs MD Attending Provider Active Start: November 07, 2024 Dr. Bandar Stubbs MD Referring Provider Active Start: November 07, 2024 Team Status: Inactive Member Role Status Dates Romeliania Martin PA Primary Care Provider Active S tart: November 07, 2024 End: November 07, 2024 Romeliania Martin PA Referring Provider Active Star t: November 07, 2024 End: November 07, 2024 Alyssa JohnsonVerna DIRECTOR PHARMACEUTICAL, DIRECTOR PHARMACEUTICAL-C Attending Provider Active Start: November 07, 2024 End: November 07, 2024 Team Status: Inactive Member Role Status Dates Romeliania Martin PA Primary Care Provider Active S tart: November 21, 2024 End: November 21, 2024 Romeliania Martin PA Referring Provider Active Star t: November 21, 2024 End: November 21, 2024 Alyssa Verna DIRECTOR PHARMACEUTICAL, DIRECTOR PHARMACEUTICAL-C Attending Provider Active Start: November 21, 2024 End: November 21, 2024 Team Status: Active Member Role Status Dates Romeliania Martin PA Primary Care Provider Active S tart: November 21, 2024 Alyssa Gillespie DIRECTOR PHARMACEUTICAL, DIRECTOR PHARMACEUTICAL-C Other Provider Active St art: November 21, 2024 Dr. Bandar Stubbs MD Attending Provider Active Start: November 21, 2024 Dr. Bandar Stubbs MD Referring Provider Active Start: November 21, 2024 Team Status: Active Member Role/Relationship Status Dates Romelia Martin PA Primary Care Provider Active Team Status: Inactive Member Role/Relationship Status Dates Romeliania Martin PA Primary Care Provider Active S tart: August 13, 2024 End: August 13, 2024 Dr. Gareth Mcdaniel MD Attending Provider Active Start: August 13, 2024 End: August 13, 2024 Dr. Gareth Mcdaniel MD Referring Provider Active Start: August 13, 2024 End: August 13, 2024 Team Status: Active Member Role/Relationship Status Dates TATE Genao Primary Care Provider Active S tart: August 13, 2024 Dr. Gareth Mcdaniel MD Attending Provider Active Start: August 13, 2024 Dr. Gareth Mcdaniel MD Referring Provider Active Start: August 13, 2024 Dr. Gareth Mcdaniel MD Other Provider Active St art: August 13, 2024 Team Status: Active Member Role/Relationship Status Dates Romeliania Martin , PA Primary Care Provider Active S tart: August 13, 2024 Dr. Gareth Mcdaniel MD Referring Provider Active Start: August 13, 2024 Dr. Gareth Mcdaniel MD Other Provider Active St art: August 13, 2024 Dr. Angel Bernardo MD Attending Provider Active Start: August 13, 2024 Team Status: Inactive Member Role/Relationship Status Dates Romelia Martin , PA Primary Care Provider Active S tart: August 20, 2024 End: August 20, 2024 Romelia Martin , PA Referring Provider Active Star t: August 20, 2024 End: August 20, 2024 Dr. Gareth Mcdaniel MD Attending Provider Active Start: August 20, 2024 End: August 20, 2024 Team Status: Inactive Member Role/Relationship Status Dates Romelia Martin , PA Primary Care Provider Active S tart: August 26, 2024 End: August 26, 2024 Romelia Martin , PA Referring Provider Active Star t: August 26, 2024 End: August 26, 2024 Dr. Bandar Stubbs MD Attending Provider Active Start: August 26, 2024 End: August 26, 2024 Team Status: Inactive Member Role/Relationship Status Dates Romelia Martin , PA Primary Care Provider Active S tart: September 11, 2024 End: September 11, 2024 Dr. Gareth Mcdaniel MD Attending Provider Active Start: September 11, 2024 End: September 11, 2024 Dr. Gareth Mcdaniel MD Referring Provider Active Start: September 11, 2024 End: September 11, 2024 Team Status: Active Member Role/Relationship Status Dates Romeliania Martin , PA Primary Care Provider Active S tart: September 11, 2024 Dr. Gareth Mcdaniel MD Attending Provider Active Start: September 11, 2024 Team Status: Active Member Role/Relationship Status Dates Romeliania Martin , PA Primary Care Provider Active S tart: September 11, 2024 Dr. Gareth Mcdaniel MD Attending Provider Active Start: September 11, 2024 Dr. Gareth Mcdaniel MD Referring Provider Active Start: September 11, 2024 Dr. Gareth Mcdaniel MD Other Provider Active St art: September 11, 2024 Team Status: Inactive Member Role/Relationship Status Dates Romeliania Martin , PA Primary Care Provider Active S tart: September 24, 2024 End: September 24, 2024 Romeliania Martin , PA Referring Provider Active Star t: September 24, 2024 End: September 24, 2024 Dr. Gareth Mcdaniel MD Attending Provider Active Start: September 24, 2024 End: September 24, 2024 Team Status: Inactive Member Role/Relationship Status Dates Romeliania Martin , PA Primary Care Provider Active S tart: September 26, 2024 End: September 26, 2024 Dr. Bandar Stubbs MD Attending Provider Active Start: September 26, 2024 End: September 26, 2024 Dr. Bandar Stubbs MD Referring Provider Active Start: September 26, 2024 End: September 26, 2024 Team Status: Active Member Role/Relationship Status Dates Romelia Martin , PA Primary Care Provider Active S tart: September 26, 2024 Dr. Jose Zavala MD Attending Provider Active S tart: September 26, 2024 Team Status: Inactive Member Role/Relationship Status Dates Romelia Martin , PA Primary Care Provider Active S tart: September 26, 2024 End: September 26, 2024 Romelia Martin , PA Referring Provider Active Star t: September 26, 2024 End: September 26, 2024 Alyssa Gillespie DIRECTOR PHARMACEUTICAL, DIRECTOR PHARMACEUTICAL-C Attending Provider Active Start: September 26, 2024 End: September 26, 2024 Team Status: Inactive Member Role/Relationship Status Dates Romelia Martin , PA Primary Care Provider Active S tart: October 09, 2024 End: October 09, 2024 Dr. Bandar Stubbs MD Attending Provider Active Start: October 09, 2024 End: October 09, 2024 Dr. Bandar Stubbs MD Referring Provider Active Start: October 09, 2024 End: October 09, 2024 Team Status: Inactive Member Role/Relationship Status Dates Romeliania Martin , PA Primary Care Provider Active S tart: October 10, 2024 End: October 10, 2024 Romelia Martin PA Referring Provider Active Star t: October 10, 2024 End: October 10, 2024 Alyssa Gillespie DIRECTOR PHARMACEUTICAL, DIRECTOR PHARMACEUTICAL-C Attending Provider Active Start: October 10, 2024 End: October 10, 2024 Team Status: Inactive Member Role/Relationship Status Dates TATE Genao Primary Care Provider Active S tart: October 17, 2024 End: October 17, 2024 TATE Genao Referring Provider Active Star t: October 17, 2024 End: October 17, 2024 Alyssa Gillespie DIRECTOR PHARMACEUTICAL, DIRECTOR PHARMACEUTICAL-C Attending Provider Active Start: October 17, 2024 End: October 17, 2024 Team Status: Inactive Member Role/Relationship Status Dates Romelia Martin PA Primary Care Provider Active S tart: October 24, 2024 End: October 24, 2024 Romelia Martin PA Referring Provider Active Star t: October 24, 2024 End: October 24, 2024 Alyssa Gillespie DIRECTOR PHARMACEUTICAL, DIRECTOR PHARMACEUTICAL-C Attending Provider Active Start: October 24, 2024 End: October 24, 2024 Team Status: Inactive Member Role/Relationship Status Dates Romelia Martin PA Primary Care Provider Active S tart: November 07, 2024 End: November 07, 2024 Romelia Martin PA Referring Provider Active Star t: November 07, 2024 End: November 07, 2024 Alyssa Gillespie DIRECTOR PHARMACEUTICAL, DIRECTOR PHARMACEUTICAL-C Attending Provider Active Start: November 07, 2024 End: November 07, 2024 Team Status: Inactive Member Role/Relationship Status Dates Romelia Martin PA Primary Care Provider Active S tart: November 21, 2024 End: November 21, 2024 Romelia Martin PA Referring Provider Active Star t: November 21, 2024 End: November 21, 2024 Alyssa Gillespie DIRECTOR PHARMACEUTICAL, DIRECTOR PHARMACEUTICAL-C Attending Provider Active Start: November 21, 2024 End: November 21, 2024 Team Status: Active Member Role/Relationship Status Dates Romelia Martin PA Primary Care Provider Active S tart: December 04, 2024 Alyssa Gillespie DIRECTOR PHARMACEUTICAL, DIRECTOR PHARMACEUTICAL-C Other Provider Active St art: December 04, 2024 Dr. Bandar Stubbs MD Attending Provider Active Start: December 04, 2024 Dr. Bandar Stubbs MD Referring Provider Active Start: December 04, 2024 Team Status: Inactive Member Role/Relationship Status Dates Romeliania Martin , PA Primary Care Provider Active S tart: August 20, 2024 End: August 20, 2024 Romelia Bean , PA Referring Provider Active Star t: August 20, 2024 End: August 20, 2024 Dr. Gareth Mcdaniel MD Attending Provider Active Start: August 20, 2024 End: August 20, 2024 Team Status: Inactive Member Role/Relationship Status Dates Romelia Veronica , PA Primary Care Provider Active S tart: August 26, 2024 End: August 26, 2024 Romelia Martin , PA Referring Provider Active Star t: August 26, 2024 End: August 26, 2024 Dr. Bandar Stubbs MD Attending Provider Active Start: August 26, 2024 End: August 26, 2024 Team Status: Inactive Member Role/Relationship Status Dates Romeliania Martin , PA Primary Care Provider Active S tart: September 11, 2024 End: September 11, 2024 Dr. Gareth Mcdaniel MD Attending Provider Active Start: September 11, 2024 End: September 11, 2024 Dr. Gareth Mcdaniel MD Referring Provider Active Start: September 11, 2024 End: September 11, 2024 Team Status: Active Member Role/Relationship Status Dates Romeliania Martin , PA Primary Care Provider Active S tart: September 11, 2024 Dr. Gareth Mcdaniel MD Attending Provider Active Start: September 11, 2024 Team Status: Active Member Role/Relationship Status Dates Romelia Martin , PA Primary Care Provider Active S tart: September 11, 2024 Dr. Gareth Mcdaniel MD Attending Provider Active Start: September 11, 2024 Dr. Gareth Mcdaniel MD Referring Provider Active Start: September 11, 2024 Dr. Gareth Mcdaniel MD Other Provider Active St art: September 11, 2024 Team Status: Inactive Member Role/Relationship Status Dates Romeliania Martin , PA Primary Care Provider Active S tart: September 24, 2024 End: September 24, 2024 Romeliania Martin , PA Referring Provider Active Star t: September 24, 2024 End: September 24, 2024 Dr. Gareth Mcdaniel MD Attending Provider Active Start: September 24, 2024 End: September 24, 2024 Team Status: Inactive Member Role/Relationship Status Dates Romeliania Martin , PA Primary Care Provider Active S tart: September 26, 2024 End: September 26, 2024 Dr. Bandar Stubbs MD Attending Provider Active Start: September 26, 2024 End: September 26, 2024 Dr. Bandar Stubbs MD Referring Provider Active Start: September 26, 2024 End: September 26, 2024 Team Status: Active Member Role/Relationship Status Dates Romelia Martin , PA Primary Care Provider Active S tart: September 26, 2024 Dr. Jose Zavala MD Attending Provider Active S tart: September 26, 2024 Team Status: Inactive Member Role/Relationship Status Dates Romelia Martin , PA Primary Care Provider Active S tart: September 26, 2024 End: September 26, 2024 Romelia Martin , PA Referring Provider Active Star t: September 26, 2024 End: September 26, 2024 Alyssa Gillespie DIRECTOR PHARMACEUTICAL, DIRECTOR PHARMACEUTICAL-C Attending Provider Active Start: September 26, 2024 End: September 26, 2024 Team Status: Inactive Member Role/Relationship Status Dates Romelia Martin , PA Primary Care Provider Active S tart: October 09, 2024 End: October 09, 2024 Dr. Bandar Stubbs MD Attending Provider Active Start: October 09, 2024 End: October 09, 2024 Dr. Bandar Stubbs MD Referring Provider Active Start: October 09, 2024 End: October 09, 2024 Team Status: Inactive Member Role/Relationship Status Dates Romelia Martin , PA Primary Care Provider Active S tart: October 10, 2024 End: October 10, 2024 Romelia Martin , PA Referring Provider Active Star t: October 10, 2024 End: October 10, 2024 Alyssa Gillespie DIRECTOR PHARMACEUTICAL, DIRECTOR PHARMACEUTICAL-C Attending Provider Active Start: October 10, 2024 End: October 10, 2024 Team Status: Inactive Member Role/Relationship Status Dates Romelia Martin , PA Primary Care Provider Active S tart: October 17, 2024 End: October 17, 2024 Romelia Martin , PA Referring Provider Active Star t: October 17, 2024 End: October 17, 2024 Alyssa Gillespie DIRECTOR PHARMACEUTICAL, DIRECTOR PHARMACEUTICAL-C Attending Provider Active Start: October 17, 2024 End: October 17, 2024 Team Status: Inactive Member Role/Relationship Status Dates Romelia Veronica , PA Primary Care Provider Active S tart: October 24, 2024 End: October 24, 2024 Romelia Martin , PA Referring Provider Active Star t: October 24, 2024 End: October 24, 2024 Alyssa Gillespie DIRECTOR PHARMACEUTICAL, DIRECTOR PHARMACEUTICAL-C Attending Provider Active Start: October 24, 2024 End: October 24, 2024 Team Status: Inactive Member Role/Relationship Status Dates Romelia Martin , PA Primary Care Provider Active S tart: November 07, 2024 End: November 07, 2024 Romelia Martin , PA Referring Provider Active Star t: November 07, 2024 End: November 07, 2024 Alyssa Gillespie DIRECTOR PHARMACEUTICAL, DIRECTOR PHARMACEUTICAL-C Attending Provider Active Start: November 07, 2024 End: November 07, 2024 Team Status: Inactive Member Role/Relationship Status Dates Romelia Martin , PA Primary Care Provider Active S tart: November 21, 2024 End: November 21, 2024 Romelia Martin , PA Referring Provider Active Star t: November 21, 2024 End: November 21, 2024 Alyssa Gillespie DIRECTOR PHARMACEUTICAL, DIRECTOR PHARMACEUTICAL-C Attending Provider Active Start: November 21, 2024 End: November 21, 2024 Team Status: Inactive Member Role/Relationship Status Dates Romelia Martin , PA Primary Care Provider Active S tart: December 04, 2024 End: December 04, 2024 Romelia Martin , PA Referring Provider Active Star t: December 04, 2024 End: December 04, 2024 Dr. Bandar Stubbs MD Attending Provider Active Start: December 04, 2024 End: December 04, 2024 Team Status: Active Member Role/Relationship Status Dates Romeliania Martin , PA Primary Care Provider Active S tart: December 05, 2024 Alyssa Gillespie DIRECTOR PHARMACEUTICAL, DIRECTOR PHARMACEUTICAL-C Other Provider Active St art: December 05, 2024 Dr. Bandar Stubbs MD Attending Provider Active Start: December 05, 2024 Dr. Bandar Stubbs MD Referring Provider Active Start: December 05, 2024 Team Status: Inactive Member Role/Relationship Status Dates Romeliania Martin , PA Primary Care Provider Active S tart: December 13, 2024 End: December 13, 2024 Romelia Martin , PA Referring Provider Active Star t: December 13, 2024 End: December 13, 2024 Dr. Jennifer Duenas MD Attending Provider Active Start: December 13, 2024 End: December 13, 2024 Team Status: Inactive Member Role/Relationship Status Dates Romelia Veronica , PA Primary Care Provider Active S tart: August 26, 2024 End: August 26, 2024 Romelia Martin , PA Referring Provider Active Star t: August 26, 2024 End: August 26, 2024 Dr. Bandar Stubbs MD Attending Provider Active Start: August 26, 2024 End: August 26, 2024 Team Status: Inactive Member Role/Relationship Status Dates Rmoelia Martin , PA Primary Care Provider Active S tart: September 11, 2024 End: September 11, 2024 Dr. Gareth Mcdaniel MD Attending Provider Active Start: September 11, 2024 End: September 11, 2024 Dr. Gareth Mcdaniel MD Referring Provider Active Start: September 11, 2024 End: September 11, 2024 Team Status: Active Member Role/Relationship Status Dates Romelia Veronica , PA Primary Care Provider Active S tart: September 11, 2024 Dr. Gareth Mcdaniel MD Attending Provider Active Start: September 11, 2024 Team Status: Active Member Role/Relationship Status Dates Romeliania Martin , PA Primary Care Provider Active S tart: September 11, 2024 Dr. Gareth Mcdaniel MD Attending Provider Active Start: September 11, 2024 Dr. Gareth Mcdaniel MD Referring Provider Active Start: September 11, 2024 Dr. Gareth Mcdaniel MD Other Provider Active St art: September 11, 2024 Team Status: Inactive Member Role/Relationship Status Dates Romelia Martin , PA Primary Care Provider Active S tart: September 24, 2024 End: September 24, 2024 Romelia Martin , PA Referring Provider Active Star t: September 24, 2024 End: September 24, 2024 Dr. Gareth Mcdaniel MD Attending Provider Active Start: September 24, 2024 End: September 24, 2024 Team Status: Inactive Member Role/Relationship Status Dates Romelia Martin , PA Primary Care Provider Active S tart: September 26, 2024 End: September 26, 2024 Dr. Bandar Stubbs MD Attending Provider Active Start: September 26, 2024 End: September 26, 2024 Dr. Bandar Stubbs MD Referring Provider Active Start: September 26, 2024 End: September 26, 2024 Team Status: Active Member Role/Relationship Status Dates Romelia Martin PA Primary Care Provider Active S tart: September 26, 2024 Dr. Jose Zavala MD Attending Provider Active S tart: September 26, 2024 Team Status: Inactive Member Role/Relationship Status Dates Romeliania Martin , PA Primary Care Provider Active S tart: September 26, 2024 End: September 26, 2024 Romeliania Martin , PA Referring Provider Active Star t: September 26, 2024 End: September 26, 2024 Alyssa Gillespie DIRECTOR PHARMACEUTICAL, DIRECTOR PHARMACEUTICAL-C Attending Provider Active Start: September 26, 2024 End: September 26, 2024 Team Status: Inactive Member Role/Relationship Status Dates Romelia Martin , PA Primary Care Provider Active S tart: October 09, 2024 End: October 09, 2024 Dr. Bandar Stubbs MD Attending Provider Active Start: October 09, 2024 End: October 09, 2024 Dr. Bandar Stubbs MD Referring Provider Active Start: October 09, 2024 End: October 09, 2024 Team Status: Inactive Member Role/Relationship Status Dates Romeliania Martin , PA Primary Care Provider Active S tart: October 10, 2024 End: October 10, 2024 Romeliania Martin , PA Referring Provider Active Star t: October 10, 2024 End: October 10, 2024 Alyssa Gillespie DIRECTOR PHARMACEUTICAL, DIRECTOR PHARMACEUTICAL-C Attending Provider Active Start: October 10, 2024 End: October 10, 2024 Team Status: Inactive Member Role/Relationship Status Dates Romelia Martin , PA Primary Care Provider Active S tart: October 17, 2024 End: October 17, 2024 Romelia Martin , PA Referring Provider Active Star t: October 17, 2024 End: October 17, 2024 Alyssa Gillespie DIRECTOR PHARMACEUTICAL, DIRECTOR PHARMACEUTICAL-C Attending Provider Active Start: October 17, 2024 End: October 17, 2024 Team Status: Inactive Member Role/Relationship Status Dates Romelia Martni , PA Primary Care Provider Active S tart: October 24, 2024 End: October 24, 2024 Romelia Martin , PA Referring Provider Active Star t: October 24, 2024 End: October 24, 2024 Alyssa Gillespie DIRECTOR PHARMACEUTICAL, DIRECTOR PHARMACEUTICAL-C Attending Provider Active Start: October 24, 2024 End: October 24, 2024 Team Status: Inactive Member Role/Relationship Status Dates Romelia Martin , PA Primary Care Provider Active S tart: November 07, 2024 End: November 07, 2024 Romelia Martin , PA Referring Provider Active Star t: November 07, 2024 End: November 07, 2024 Alyssa Gillespie DIRECTOR PHARMACEUTICAL, DIRECTOR PHARMACEUTICAL-C Attending Provider Active Start: November 07, 2024 End: November 07, 2024 Team Status: Inactive Member Role/Relationship Status Dates Romelia Martin , PA Primary Care Provider Active S tart: November 21, 2024 End: November 21, 2024 Romelia Martin , PA Referring Provider Active Star t: November 21, 2024 End: November 21, 2024 Alyssa Gillespie DIRECTOR PHARMACEUTICAL, DIRECTOR PHARMACEUTICAL-C Attending Provider Active Start: November 21, 2024 End: November 21, 2024 Team Status: Inactive Member Role/Relationship Status Dates Romelia Martin , PA Primary Care Provider Active S tart: December 04, 2024 End: December 04, 2024 Romelia Martin , PA Referring Provider Active Star t: December 04, 2024 End: December 04, 2024 Dr. Bandar Stubbs MD Attending Provider Active Start: December 04, 2024 End: December 04, 2024 Team Status: Inactive Member Role/Relationship Status Dates Romelia Martin , PA Primary Care Provider Active S tart: December 13, 2024 End: December 13, 2024 Romelia Martin , PA Referring Provider Active Star t: December 13, 2024 End: December 13, 2024 Dr. Jennifer Duenas MD Attending Provider Active Start: December 13, 2024 End: December 13, 2024 Team Status: Inactive Member Role/Relationship Status Dates Romelia Martin , PA Primary Care Provider Active S tart: December 19, 2024 End: December 19, 2024 Romelia Martin , PA Referring Provider Active Star t: December 19, 2024 End: December 19, 2024 Alyssa Gillespie DIRECTOR PHARMACEUTICAL, DIRECTOR PHARMACEUTICAL-C Attending Provider Active Start: December 19, 2024 End: December 19, 2024 Team Status: Active Member Role/Relationship Status Dates Romeliania Martin , PA Primary Care Provider Active S tart: December 19, 2024 Alyssa Gillespie DIRECTOR PHARMACEUTICAL, DIRECTOR PHARMACEUTICAL-C Other Provider Active St art: December 19, 2024 Dr. Bandar Stubbs MD Attending Provider Active Start: December 19, 2024 Dr. Bandar Stubbs MD Referring Provider Active Start: December 19, 2024 Team Status: Inactive Member Role/Relationship Status Dates Romeliania Martin , PA Primary Care Provider Active S tart: September 11, 2024 End: September 11, 2024 Dr. Gareth Mcdaniel MD Attending Provider Active Start: September 11, 2024 End: September 11, 2024 Dr. Gareth Mcdaniel MD Referring Provider Active Start: September 11, 2024 End: September 11, 2024 Team Status: Active Member Role/Relationship Status Dates Romeliania Martin PA Primary Care Provider Active S tart: September 11, 2024 Dr. Gareth Mcdaniel MD Attending Provider Active Start: September 11, 2024 Team Status: Active Member Role/Relationship Status Dates Romeliania Martin , PA Primary Care Provider Active S tart: September 11, 2024 Dr. Gareth Mcdaniel MD Attending Provider Active Start: September 11, 2024 Dr. Gareth Mcdaniel MD Referring Provider Active Start: September 11, 2024 Dr. Gareth Mcdaniel MD Other Provider Active St art: September 11, 2024 Team Status: Inactive Member Role/Relationship Status Dates Romelia Martin , PA Primary Care Provider Active S tart: September 24, 2024 End: September 24, 2024 Romeliania Martin , PA Referring Provider Active Star t: September 24, 2024 End: September 24, 2024 Dr. Gareth Mcdaniel MD Attending Provider Active Start: September 24, 2024 End: September 24, 2024 Team Status: Inactive Member Role/Relationship Status Dates Romeliania Martin PA Primary Care Provider Active S tart: September 26, 2024 End: September 26, 2024 Dr. Bandar Stubbs MD Attending Provider Active Start: September 26, 2024 End: September 26, 2024 Dr. Bandar Stubbs MD Referring Provider Active Start: September 26, 2024 End: September 26, 2024 Team Status: Active Member Role/Relationship Status Dates Romelia Martin , PA Primary Care Provider Active S tart: September 26, 2024 Dr. Jose Zavala MD Attending Provider Active S tart: September 26, 2024 Team Status: Inactive Member Role/Relationship Status Dates Romelia Martin , PA Primary Care Provider Active S tart: September 26, 2024 End: September 26, 2024 Romelia Martin , PA Referring Provider Active Star t: September 26, 2024 End: September 26, 2024 Alyssa Gillespie DIRECTOR PHARMACEUTICAL, DIRECTOR PHARMACEUTICAL-C Attending Provider Active Start: September 26, 2024 End: September 26, 2024 Team Status: Inactive Member Role/Relationship Status Dates Romelia Martin , PA Primary Care Provider Active S tart: October 09, 2024 End: October 09, 2024 Dr. Bandar Stubbs MD Attending Provider Active Start: October 09, 2024 End: October 09, 2024 Dr. Bandar Stubbs MD Referring Provider Active Start: October 09, 2024 End: October 09, 2024 Team Status: Inactive Member Role/Relationship Status Dates Romelia Martin , PA Primary Care Provider Active S tart: October 10, 2024 End: October 10, 2024 Romelia Martin , PA Referring Provider Active Star t: October 10, 2024 End: October 10, 2024 Alyssa Gillespie DIRECTOR PHARMACEUTICAL, DIRECTOR PHARMACEUTICAL-C Attending Provider Active Start: October 10, 2024 End: October 10, 2024 Team Status: Inactive Member Role/Relationship Status Dates Romelia Martin , PA Primary Care Provider Active S tart: October 17, 2024 End: October 17, 2024 Romelia Martin , PA Referring Provider Active Star t: October 17, 2024 End: October 17, 2024 Alyssa Gillespie DIRECTOR PHARMACEUTICAL, DIRECTOR PHARMACEUTICAL-C Attending Provider Active Start: October 17, 2024 End: October 17, 2024 Team Status: Inactive Member Role/Relationship Status Dates Romelia Martin , PA Primary Care Provider Active S tart: October 24, 2024 End: October 24, 2024 Romelia Martin , PA Referring Provider Active Star t: October 24, 2024 End: October 24, 2024 Alyssa Gillespie DIRECTOR PHARMACEUTICAL, DIRECTOR PHARMACEUTICAL-C Attending Provider Active Start: October 24, 2024 End: October 24, 2024 Team Status: Inactive Member Role/Relationship Status Dates Romelia Martin , PA Primary Care Provider Active S tart: November 07, 2024 End: November 07, 2024 Romelia Martin , PA Referring Provider Active Star t: November 07, 2024 End: November 07, 2024 Alyssa Gillespie DIRECTOR PHARMACEUTICAL, DIRECTOR PHARMACEUTICAL-C Attending Provider Active Start: November 07, 2024 End: November 07, 2024 Team Status: Inactive Member Role/Relationship Status Dates Romelia Martin , PA Primary Care Provider Active S tart: November 21, 2024 End: November 21, 2024 Romelia Martin , PA Referring Provider Active Star t: November 21, 2024 End: November 21, 2024 Alyssa Gillespie DIRECTOR PHARMACEUTICAL, DIRECTOR PHARMACEUTICAL-C Attending Provider Active Start: November 21, 2024 End: November 21, 2024 Team Status: Inactive Member Role/Relationship Status Dates Romelia Martin , PA Primary Care Provider Active S tart: December 04, 2024 End: December 04, 2024 Romelia Martin , PA Referring Provider Active Star t: December 04, 2024 End: December 04, 2024 Dr. Bandar Stubbs MD Attending Provider Active Start: December 04, 2024 End: December 04, 2024 Team Status: Inactive Member Role/Relationship Status Dates Romelia Martin , PA Primary Care Provider Active S tart: December 13, 2024 End: December 13, 2024 Romelia Martin , PA Referring Provider Active Star t: December 13, 2024 End: December 13, 2024 Dr. Jennifer Duenas MD Attending Provider Active Start: December 13, 2024 End: December 13, 2024 Team Status: Inactive Member Role/Relationship Status Dates Romelia Martin , PA Primary Care Provider Active S tart: December 19, 2024 End: December 19, 2024 Romelia Martin , PA Referring Provider Active Star t: December 19, 2024 End: December 19, 2024 Alyssa Gillespie DIRECTOR PHARMACEUTICAL, DIRECTOR PHARMACEUTICAL-C Attending Provider Active Start: December 19, 2024 End: December 19, 2024 Team Status: Active Member Role/Relationship Status Dates TATE Genao Primary Care Provider Active S tart: December 19, 2024 Alyssaigor JohnsonVerna DIRECTOR PHARMACEUTICAL, DIRECTOR PHARMACEUTICAL-C Other Provider Active St art: December 19, 2024 Dr. Bandar Stubbs MD Attending Provider Active Start: December 19, 2024 Dr. Bandar Stubbs MD Referring Provider Active Start: December 19, 2024 Team Status: Inactive Member Role/Relationship Status Dates Romelia Martin PA Primary Care Provider Active S tart: December 20, 2024 End: December 20, 2024 Alyssa Verna DIRECTOR PHARMACEUTICAL, DIRECTOR PHARMACEUTICAL-C Attending Provider Active Start: December 20, 2024 End: December 20, 2024 Alyssa Verna DIRECTOR PHARMACEUTICAL, DIRECTOR PHARMACEUTICAL-C Referring Provider Active Start: December 20, 2024 End: December 20, 2024 Team Status: Active Member Role/Relationship Status Dates TATE Genao Primary Care Provider Active S tart: December 23, 2024 Dr. Jennifer Duenas MD Attending Provider Active Start: December 23, 2024 Dr. Jennifer Duenas MD Referring Provider Active Start: December 23, 2024 Team Status: Inactive Member Role/Relationship Status Dates Romelia Martin PA Primary Care Provider Active S tart: December 20, 2024 End: December 20, 2024 Alyssa Verna DIRECTOR PHARMACEUTICAL, DIRECTOR PHARMACEUTICAL-C Attending Provider Active Start: December 20, 2024 End: December 20, 2024 Alyssa Verna DIRECTOR PHARMACEUTICAL, DIRECTOR PHARMACEUTICAL-C Referring Provider Active Start: December 20, 2024 End: December 20, 2024 Team Status: Active Member Role/Relationship Status Dates Romelia Martin PA Primary Care Provider Active S tart: December 23, 2024 Dr. Jennifer Duenas MD Attending Provider Active Start: December 23, 2024 Dr. Jennifer Duenas MD Referring Provider Active Start: December 23, 2024 Team Status: Active Member Role/Relationship Status Dates Romelia Martin PA Primary Care Provider Active S tart: December 26, 2024 Alyssa Gillespie DIRECTOR PHARMACEUTICAL, DIRECTOR PHARMACEUTICAL-C Other Provider Active St art: December 26, 2024 Dr. Bandar Stubbs MD Attending Provider Active Start: December 26, 2024 Dr. Bandar Stubbs MD Referring Provider Active Start: December 26, 2024 Team Status: Inactive Member Role/Relationship Status Dates Romelia Martin , PA Primary Care Provider Active S tart: December 26, 2024 End: December 26, 2024 Romelia Martin , PA Referring Provider Active Star t: December 26, 2024 End: December 26, 2024 Alyssa Gillespie DIRECTOR PHARMACEUTICAL, DIRECTOR PHARMACEUTICAL-C Attending Provider Active Start: December 26, 2024 End: December 26, 2024 Team Status: Inactive Member Role/Relationship Status Dates Romelia Martin , PA Primary Care Provider Active S tart: December 23, 2024 End: December 23, 2024 Dr. Jennifer Duenas MD Attending Provider Active Start: December 23, 2024 End: December 23, 2024 Dr. Jennifer Duenas MD Referring Provider Active Start: December 23, 2024 End: December 23, 2024 Team Status: Inactive Member Role/Relationship Status Dates Romelia Martin , PA Primary Care Provider Active S tart: December 26, 2024 End: December 26, 2024 Romelia Martin , PA Referring Provider Active Star t: December 26, 2024 End: December 26, 2024 Alyssa Gillespie DIRECTOR PHARMACEUTICAL, DIRECTOR PHARMACEUTICAL-C Attending Provider Active Start: December 26, 2024 End: December 26, 2024 Team Status: Inactive Member Role/Relationship Status Dates Romelia Martin , PA Primary Care Provider Active S tart: January 02, 2025 End: January 02, 2025 Romelia Martin , PA Referring Provider Active Star t: January 02, 2025 End: January 02, 2025 Dr. Leighton Mercado MD Attending Provider Active S tart: January 02, 2025 End: January 02, 2025 Team Status: Active Member Role/Relationship Status Dates Romelia Martin , PA Primary Care Provider Active S tart: January 02, 2025 Alyssa Gillespie DIRECTOR PHARMACEUTICAL, DIRECTOR PHARMACEUTICAL-C Other Provider Active St art: January 02, 2025 Dr. Bandar Stubbs MD Attending Provider Active Start: January 02, 2025 Dr. 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 Gareth Mcdaniel MD Attending Provider Active Start: September 24, 2024 End: September 24, 2024 Team Status: Inactive Member Role/Relationship Status Dates TATE Genao Primary Care Provider Active S tart: September 26, 2024 End: September 26, 2024 Dr. Bandar Stubbs MD Attending Provider Active Start: September 26, 2024 End: September 26, 2024 Dr. Bandar Stubbs MD Referring Provider Active Start: September 26, 2024 End: September 26, 2024 Team Status: Active Member Role/Relationship Status Dates TATE Genao Primary Care Provider Active S tart: September 26, 2024 Dr. Jose Zavala MD Attending Provider Active S tart: September 26, 2024 Team Status: Inactive Member Role/Relationship Status Dates TATE Genao Primary Care Provider Active S tart: September 26, 2024 End: September 26, 2024 TATE Genao Referring Provider Active Star t: September 26, 2024 End: September 26, 2024 Alyssa Gillespie DIRECTOR PHARMACEUTICAL, DIRECTOR PHARMACEUTICAL-C Attending Provider Active Start: September 26, 2024 End: September 26, 2024 Team Status: Inactive Member Role/Relationship Status Dates TATE Genao Primary Care Provider Active S tart: October 09, 2024 End: October 09, 2024 Dr. Bandar Stubbs MD Attending Provider Active Start: October 09, 2024 End: October 09, 2024 Dr. Bandar Stubbs MD Referring Provider Active Start: October 09, 2024 End: October 09, 2024 Team Status: Inactive Member Role/Relationship Status Dates Romelia Veronica , PA Primary Care Provider Active S tart: October 10, 2024 End: October 10, 2024 Romelia Martin , PA Referring Provider Active Star t: October 10, 2024 End: October 10, 2024 Alyssa Gillespie DIRECTOR PHARMACEUTICAL, DIRECTOR PHARMACEUTICAL-C Attending Provider Active Start: October 10, 2024 End: October 10, 2024 Team Status: Inactive Member Role/Relationship Status Dates Romelia Martin , PA Primary Care Provider Active S tart: October 17, 2024 End: October 17, 2024 Romelia Martin , PA Referring Provider Active Star t: October 17, 2024 End: October 17, 2024 Alyssa Gillespie DIRECTOR PHARMACEUTICAL, DIRECTOR PHARMACEUTICAL-C Attending Provider Active Start: October 17, 2024 End: October 17, 2024 Team Status: Inactive Member Role/Relationship Status Dates Romelia Veronica , PA Primary Care Provider Active S tart: October 24, 2024 End: October 24, 2024 Romelia Veronica , PA Referring Provider Active Star t: October 24, 2024 End: October 24, 2024 Alyssa Gillespie DIRECTOR PHARMACEUTICAL, DIRECTOR PHARMACEUTICAL-C Attending Provider Active Start: October 24, 2024 End: October 24, 2024 Team Status: Inactive Member Role/Relationship Status Dates Romelia Martin , PA Primary Care Provider Active S tart: November 07, 2024 End: November 07, 2024 Romelia Martin , PA Referring Provider Active Star t: November 07, 2024 End: November 07, 2024 Alyssa Gillespie DIRECTOR PHARMACEUTICAL, DIRECTOR PHARMACEUTICAL-C Attending Provider Active Start: November 07, 2024 End: November 07, 2024 Team Status: Inactive Member Role/Relationship Status Dates Romelia Martin , PA Primary Care Provider Active S tart: November 21, 2024 End: November 21, 2024 Romelia Martin , PA Referring Provider Active Star t: November 21, 2024 End: November 21, 2024 Alyssa Gillespie DIRECTOR PHARMACEUTICAL, DIRECTOR PHARMACEUTICAL-C Attending Provider Active Start: November 21, 2024 End: November 21, 2024 Team Status: Inactive Member Role/Relationship Status Dates Romelia Martin , PA Primary Care Provider Active S tart: December 04, 2024 End: December 04, 2024 Romelia Martin , PA Referring Provider Active Star t: December 04, 2024 End: December 04, 2024 Dr. Bandar Stubbs MD Attending Provider Active Start: December 04, 2024 End: December 04, 2024 Team Status: Inactive Member Role/Relationship Status Dates Romelia Martin , PA Primary Care Provider Active S tart: December 13, 2024 End: December 13, 2024 Romelia Martin , PA Referring Provider Active Star t: December 13, 2024 End: December 13, 2024 Dr. Jennifer Duenas MD Attending Provider Active Start: December 13, 2024 End: December 13, 2024 Team Status: Inactive Member Role/Relationship Status Dates Romelia Martin , PA Primary Care Provider Active S tart: December 19, 2024 End: December 19, 2024 Romelia Martin , PA Referring Provider Active Star t: December 19, 2024 End: December 19, 2024 Alyssaigor Gillespie DIRECTOR PHARMACEUTICAL, DIRECTOR PHARMACEUTICAL-C Attending Provider Active Start: December 19, 2024 End: December 19, 2024 Team Status: Inactive Member Role/Relationship Status Dates Romelia Martin , PA Primary Care Provider Active S tart: December 20, 2024 End: December 20, 2024 Alyssa Verna DIRECTOR PHARMACEUTICAL, DIRECTOR PHARMACEUTICAL-C Attending Provider Active Start: December 20, 2024 End: December 20, 2024 Alyssa Verna DIRECTOR PHARMACEUTICAL, DIRECTOR PHARMACEUTICAL-C Referring Provider Active Start: December 20, 2024 End: December 20, 2024 Team Status: Inactive Member Role/Relationship Status Dates Romleia Martin , PA Primary Care Provider Active S tart: December 23, 2024 End: December 23, 2024 Dr. Jennifer Duenas MD Attending Provider Active Start: December 23, 2024 End: December 23, 2024 Dr. Jennifer Duenas MD Referring Provider Active Start: December 23, 2024 End: December 23, 2024 Team Status: Inactive Member Role/Relationship Status Dates Romelia Martin , PA Primary Care Provider Active S tart: December 26, 2024 End: December 26, 2024 Romelia Martin , PA Referring Provider Active Star t: December 26, 2024 End: December 26, 2024 Alyssa Verna DIRECTOR PHARMACEUTICAL, DIRECTOR PHARMACEUTICAL-C Attending Provider Active Start: December 26, 2024 End: December 26, 2024 Team Status: Inactive Member Role/Relationship Status Dates Romelia Martin , PA Primary Care Provider Active S tart: January 02, 2025 End: January 02, 2025 Romelia Martin , PA Referring Provider Active Star t: January 02, 2025 End: January 02, 2025 Dr. Leighton Mercado MD Attending Provider Active S tart: January 02, 2025 End: January 02, 2025 Team Status: Inactive Member Role/Relationship Status Dates Romelia Martin , PA Primary Care Provider Active S tart: January 16, 2025 End: January 16, 2025 Romelia Martin , PA Referring Provider Active Star t: January 16, 2025 End: January 16, 2025 Dr. Bandar Stubbs MD Attending Provider Active Start: January 16, 2025 End: January 16, 2025 Team Status: Active Member Role/Relationship Status Dates Romeliania Martin , PA Primary Care Provider Active S tart: January 16, 2025 Alyssa Gillespie DIRECTOR PHARMACEUTICAL, DIRECTOR PHARMACEUTICAL-C Other Provider Active St art: January 16, 2025 Dr. Bandar Stubbs MD Attending Provider Active Start: January 16, 2025 Dr. Bandar Stubbs MD Referring Provider Active Start: January 16, 2025 Team Status: Inactive Member Role/Relationship Status Dates Romeliania Martin , PA Primary Care Provider Active S tart: October 09, 2024 End: October 09, 2024 Dr. Bandar Stubbs MD Attending Provider Active Start: October 09, 2024 End: October 09, 2024 Dr. Bandar Stubbs MD Referring Provider Active Start: October 09, 2024 End: October 09, 2024 Team Status: Inactive Member Role/Relationship Status Dates Romelia Martin , PA Primary Care Provider Active S tart: October 10, 2024 End: October 10, 2024 Romelia Martin , PA Referring Provider Active Star t: October 10, 2024 End: October 10, 2024 Alyssa Gillespie DIRECTOR PHARMACEUTICAL, DIRECTOR PHARMACEUTICAL-C Attending Provider Active Start: October 10, 2024 End: October 10, 2024 Team Status: Inactive Member Role/Relationship Status Dates Romelia Martin , PA Primary Care Provider Active S tart: October 17, 2024 End: October 17, 2024 Romelia Martin , PA Referring Provider Active Star t: October 17, 2024 End: October 17, 2024 Alyssa Gillespie DIRECTOR PHARMACEUTICAL, DIRECTOR PHARMACEUTICAL-C Attending Provider Active Start: October 17, 2024 End: October 17, 2024 Team Status: Inactive Member Role/Relationship Status Dates Romelia Martin , PA Primary Care Provider Active S tart: October 24, 2024 End: October 24, 2024 Romelia Martin , PA Referring Provider Active Star t: October 24, 2024 End: October 24, 2024 Alyssa Gillespie DIRECTOR PHARMACEUTICAL, DIRECTOR PHARMACEUTICAL-C Attending Provider Active Start: October 24, 2024 End: October 24, 2024 Team Status: Inactive Member Role/Relationship Status Dates Romelia Martin , PA Primary Care Provider Active S tart: November 07, 2024 End: November 07, 2024 Romelia Martin , PA Referring Provider Active Star t: November 07, 2024 End: November 07, 2024 Alyssa Gillespie DIRECTOR PHARMACEUTICAL, DIRECTOR PHARMACEUTICAL-C Attending Provider Active Start: November 07, 2024 End: November 07, 2024 Team Status: Inactive Member Role/Relationship Status Dates Romelia Martin , PA Primary Care Provider Active S tart: November 21, 2024 End: November 21, 2024 Romelia Martin , PA Referring Provider Active Star t: November 21, 2024 End: November 21, 2024 Alyssa Gillespie DIRECTOR PHARMACEUTICAL, DIRECTOR PHARMACEUTICAL-C Attending Provider Active Start: November 21, 2024 End: November 21, 2024 Team Status: Inactive Member Role/Relationship Status Dates Romelia Martin , PA Primary Care Provider Active S tart: December 04, 2024 End: December 04, 2024 Romelia Martin , PA Referring Provider Active Star t: December 04, 2024 End: December 04, 2024 Dr. Bandar Stubbs MD Attending Provider Active Start: December 04, 2024 End: December 04, 2024 Team Status: Inactive Member Role/Relationship Status Dates Romelia Martin , PA Primary Care Provider Active S tart: December 13, 2024 End: December 13, 2024 Romelia Martin , PA Referring Provider Active Star t: December 13, 2024 End: December 13, 2024 Dr. Jennifer Duenas MD Attending Provider Active Start: December 13, 2024 End: December 13, 2024 Team Status: Inactive Member Role/Relationship Status Dates Romelia Martin , PA Primary Care Provider Active S tart: December 19, 2024 End: December 19, 2024 Romelia Martin , PA Referring Provider Active Star t: December 19, 2024 End: December 19, 2024 Alyssa Gillespie DIRECTOR PHARMACEUTICAL, DIRECTOR PHARMACEUTICAL-C Attending Provider Active Start: December 19, 2024 End: December 19, 2024 Team Status: Inactive Member Role/Relationship Status Dates Romelia Martin , PA Primary Care Provider Active S tart: December 20, 2024 End: December 20, 2024 Alyssa Gillespie DIRECTOR PHARMACEUTICAL, DIRECTOR PHARMACEUTICAL-C Attending Provider Active Start: December 20, 2024 End: December 20, 2024 Alyssa Gillespie DIRECTOR PHARMACEUTICAL, DIRECTOR PHARMACEUTICAL-C Referring Provider Active Start: December 20, 2024 End: December 20, 2024 Team Status: Inactive Member Role/Relationship Status Dates Romelia Martin , PA Primary Care Provider Active S tart: December 23, 2024 End: December 23, 2024 Dr. Jennifer Duenas MD Attending Provider Active Start: December 23, 2024 End: December 23, 2024 Dr. Jennifer Duenas MD Referring Provider Active Start: December 23, 2024 End: December 23, 2024 Team Status: Inactive Member Role/Relationship Status Dates Romelia Martin , PA Primary Care Provider Active S tart: December 26, 2024 End: December 26, 2024 Romelia Martin , PA Referring Provider Active Star t: December 26, 2024 End: December 26, 2024 Alyssa Gillespie DIRECTOR PHARMACEUTICAL, DIRECTOR PHARMACEUTICAL-C Attending Provider Active Start: December 26, 2024 End: December 26, 2024 Team Status: Inactive Member Role/Relationship Status Dates Romelia Martin , PA Primary Care Provider Active S tart: January 02, 2025 End: January 02, 2025 Romelia Martin , PA Referring Provider Active Star t: January 02, 2025 End: January 02, 2025 Dr. Leighton Mercado MD Attending Provider Active S tart: January 02, 2025 End: January 02, 2025 Team Status: Inactive Member Role/Relationship Status Dates Romelia Martin , PA Primary Care Provider Active S tart: January 16, 2025 End: January 16, 2025 Romelia Martin , PA Referring Provider Active Star t: January 16, 2025 End: January 16, 2025 Dr. Bandar Stubbs MD Attending Provider Active Start: January 16, 2025 End: January 16, 2025 Team Status: Inactive Member Role/Relationship Status Dates Romelia Martin PA Primary Care Provider Active S tart: January 30, 2025 End: January 30, 2025 TATE Genao Referring Provider Active Star t: January 30, 2025 End: January 30, 2025 Alyssa Gillespie DIRECTOR PHARMACEUTICAL, DIRECTOR PHARMACEUTICAL-C Attending Provider Active Start: January 30, 2025 End: January 30, 2025 Team Status: Active Member Role/Relationship Status Dates TATE Genao Primary Care Provider Active S tart: January 30, 2025 Alyssa Gillespie DIRECTOR PHARMACEUTICAL, DIRECTOR PHARMACEUTICAL-C Other Provider Active St art: January 30, 2025 Dr. Bandar Stubbs MD Attending Provider Active Start: January 30, 2025 Dr. Bandar Stubbs MD Referring Provider Active Start: January 30, 2025 Team Status: Inactive Member Role/Relationship Status Dates Romelia Martin PA Primary Care Provider Active S tart: October 24, 2024 End: October 24, 2024 Romelia Martin PA Referring Provider Active Star t: October 24, 2024 End: October 24, 2024 Alyssa Gillespie DIRECTOR PHARMACEUTICAL, DIRECTOR PHARMACEUTICAL-C Attending Provider Active Start: October 24, 2024 End: October 24, 2024 Team Status: Inactive Member Role/Relationship Status Dates Romelia Martin PA Primary Care Provider Active S tart: November 07, 2024 End: November 07, 2024 Romelia Martin PA Referring Provider Active Star t: November 07, 2024 End: November 07, 2024 Alyssa Gillespie DIRECTOR PHARMACEUTICAL, DIRECTOR PHARMACEUTICAL-C Attending Provider Active Start: November 07, 2024 End: November 07, 2024 Team Status: Inactive Member Role/Relationship Status Dates Romeliania Martin PA Primary Care Provider Active S tart: November 21, 2024 End: November 21, 2024 Romelia Martin PA Referring Provider Active Star t: November 21, 2024 End: November 21, 2024 Alyssa Gillespie DIRECTOR PHARMACEUTICAL, DIRECTOR PHARMACEUTICAL-C Attending Provider Active Start: November 21, 2024 End: November 21, 2024 Team Status: Inactive Member Role/Relationship Status Dates Romelia Martin , PA Primary Care Provider Active S tart: December 04, 2024 End: December 04, 2024 Romelia Martin , PA Referring Provider Active Star t: December 04, 2024 End: December 04, 2024 Dr. Bandar Stubbs MD Attending Provider Active Start: December 04, 2024 End: December 04, 2024 Team Status: Inactive Member Role/Relationship Status Dates Romelia Martin , PA Primary Care Provider Active S tart: December 13, 2024 End: December 13, 2024 Romelia Martin , PA Referring Provider Active Star t: December 13, 2024 End: December 13, 2024 Dr. Jennifer Duenas MD Attending Provider Active Start: December 13, 2024 End: December 13, 2024 Team Status: Inactive Member Role/Relationship Status Dates Romelia Martin , PA Primary Care Provider Active S tart: December 19, 2024 End: December 19, 2024 Romelia Martin , PA Referring Provider Active Star t: December 19, 2024 End: December 19, 2024 Alyssaigor Gillespie DIRECTOR PHARMACEUTICAL, DIRECTOR PHARMACEUTICAL-C Attending Provider Active Start: December 19, 2024 End: December 19, 2024 Team Status: Inactive Member Role/Relationship Status Dates Romelia Martin , PA Primary Care Provider Active S tart: December 20, 2024 End: December 20, 2024 Alyssaigor Gillespie DIRECTOR PHARMACEUTICAL, DIRECTOR PHARMACEUTICAL-C Attending Provider Active Start: December 20, 2024 End: December 20, 2024 Alyssaigor Gillespie DIRECTOR PHARMACEUTICAL, DIRECTOR PHARMACEUTICAL-C Referring Provider Active Start: December 20, 2024 End: December 20, 2024 Team Status: Inactive Member Role/Relationship Status Dates Romelia Martin , PA Primary Care Provider Active S tart: December 23, 2024 End: December 23, 2024 Dr. Jennifer Duenas MD Attending Provider Active Start: December 23, 2024 End: December 23, 2024 Dr. Jennifer Duenas MD Referring Provider Active Start: December 23, 2024 End: December 23, 2024 Team Status: Inactive Member Role/Relationship Status Dates Romelia Martin , PA Primary Care Provider Active S tart: December 26, 2024 End: December 26, 2024 Romeliania Martin , PA Referring Provider Active Star t: December 26, 2024 End: December 26, 2024 Alyssa Gillespie DIRECTOR PHARMACEUTICAL, DIRECTOR PHARMACEUTICAL-C Attending Provider Active Start: December 26, 2024 End: December 26, 2024 Team Status: Inactive Member Role/Relationship Status Dates Romelia Martin , PA Primary Care Provider Active S tart: January 02, 2025 End: January 02, 2025 Romeliania Martin , PA Referring Provider Active Star t: January 02, 2025 End: January 02, 2025 Dr. Leighton Mercado MD Attending Provider Active S tart: January 02, 2025 End: January 02, 2025 Team Status: Inactive Member Role/Relationship Status Dates Romelia Veronica , PA Primary Care Provider Active S tart: January 16, 2025 End: January 16, 2025 Romelia Martin , PA Referring Provider Active Star t: January 16, 2025 End: January 16, 2025 Dr. Bandar Stubbs MD Attending Provider Active Start: January 16, 2025 End: January 16, 2025 Team Status: Inactive Member Role/Relationship Status Dates Romelia Martin , PA Primary Care Provider Active S tart: January 30, 2025 End: January 30, 2025 Romelia Martin , PA Referring Provider Active Star t: January 30, 2025 End: January 30, 2025 Alyssa Gillespie DIRECTOR PHARMACEUTICAL, DIRECTOR PHARMACEUTICAL-C Attending Provider Active Start: January 30, 2025 End: January 30, 2025 Team Status: Active Member Role/Relationship Status Dates Romeliania Martin , PA Primary Care Provider Active S tart: January 31, 2025 Alyssa Gillespie DIRECTOR PHARMACEUTICAL, DIRECTOR PHARMACEUTICAL-C Other Provider Active St art: January 31, 2025 Dr. Bandar Stubbs MD Attending Provider Active Start: January 31, 2025 Dr. Bandar Stubbs MD Referring Provider Active Start: January 31, 2025 Team Status: Active Member Role/Relationship Status Dates Romeliania Martin , PA Primary care physician Active Team Status: Inactive Member Role/Relationship Status Dates Romeliania Martin PA Primary care physician Active Start: November 07, 2024 End: November 07, 2024 Romeliania Martin PA Referring Provider Active Star t: November 07, 2024 End: November 07, 2024 Alyssa Gillespie DIRECTOR PHARMACEUTICAL, DIRECTOR PHARMACEUTICAL-C Attending physician Active Start: November 07, 2024 End: November 07, 2024 Team Status: Inactive Member Role/Relationship Status Dates Romelia Veronica , PA Primary care physician Active Start: November 21, 2024 End: November 21, 2024 Romelia Martin , PA Referring Provider Active Star t: November 21, 2024 End: November 21, 2024 Alyssa Gillespie DIRECTOR PHARMACEUTICAL, DIRECTOR PHARMACEUTICAL-C Attending physician Active Start: November 21, 2024 End: November 21, 2024 Team Status: Inactive Member Role/Relationship Status Dates Romelia Martin , PA Primary care physician Active Start: December 04, 2024 End: December 04, 2024 Romelia Martin , PA Referring Provider Active Star t: December 04, 2024 End: December 04, 2024 Dr. Bandar Stubbs MD Attending physician Active Start: December 04, 2024 End: December 04, 2024 Team Status: Inactive Member Role/Relationship Status Dates Romelia Martin , PA Primary care physician Active Start: December 13, 2024 End: December 13, 2024 Romelia Martin , PA Referring Provider Active Star t: December 13, 2024 End: December 13, 2024 Dr. Jennifer Duenas MD Attending physician Active Start: December 13, 2024 End: December 13, 2024 Team Status: Inactive Member Role/Relationship Status Dates Romelia Martin , PA Primary care physician Active Start: December 19, 2024 End: December 19, 2024 Romelia Martin , PA Referring Provider Active Star t: December 19, 2024 End: December 19, 2024 Alyssa Gillespie DIRECTOR PHARMACEUTICAL, DIRECTOR PHARMACEUTICAL-C Attending physician Active Start: December 19, 2024 End: December 19, 2024 Team Status: Inactive Member Role/Relationship Status Dates Romelia Martin , PA Primary care physician Active Start: December 20, 2024 End: December 20, 2024 Alyssa Gillespie DIRECTOR PHARMACEUTICAL, DIRECTOR PHARMACEUTICAL-C Attending physician Active Start: December 20, 2024 End: December 20, 2024 Alyssaigor YoungVerna DIRECTOR PHARMACEUTICAL, DIRECTOR PHARMACEUTICAL-C Referring Provider Active Start: December 20, 2024 End: December 20, 2024 Team Status: Inactive Member Role/Relationship Status Dates Romelia Martin , PA Primary care physician Active Start: December 23, 2024 End: December 23, 2024 Dr. Jennifer Duenas MD Attending physician Active Start: December 23, 2024 End: December 23, 2024 Dr. Jennifer Duenas MD Referring Provider Active Start: December 23, 2024 End: December 23, 2024 Team Status: Inactive Member Role/Relationship Status Dates Romelia Veronica , PA Primary care physician Active Start: December 26, 2024 End: December 26, 2024 Romelia Martin , PA Referring Provider Active Star t: December 26, 2024 End: December 26, 2024 Alyssa Gillespie DIRECTOR PHARMACEUTICAL, DIRECTOR PHARMACEUTICAL-C Attending physician Active Start: December 26, 2024 End: December 26, 2024 Team Status: Inactive Member Role/Relationship Status Dates Romelia Martin , PA Primary care physician Active Start: January 02, 2025 End: January 02, 2025 Romelia Martin , PA Referring Provider Active Star t: January 02, 2025 End: January 02, 2025 Dr. Leighton Mercado MD Attending physician Active Start: January 02, 2025 End: January 02, 2025 Team Status: Inactive Member Role/Relationship Status Dates Romelia Martin , PA Primary care physician Active Start: January 16, 2025 End: January 16, 2025 Romelia Martin , PA Referring Provider Active Star t: January 16, 2025 End: January 16, 2025 Dr. Bandar Stubbs MD Attending physician Active Start: January 16, 2025 End: January 16, 2025 Team Status: Inactive Member Role/Relationship Status Dates Romelia Martin , PA Primary care physician Active Start: January 30, 2025 End: January 30, 2025 Romelia Martin , PA Referring Provider Active Star t: January 30, 2025 End: January 30, 2025 Alyssa Gillespie DIRECTOR PHARMACEUTICAL, DIRECTOR PHARMACEUTICAL-C Attending physician Active Start: January 30, 2025 End: January 30, 2025 Team Status: Active Member Role/Relationship Status Dates Romelia Martin , PA Primary care physician Active Start: January 31, 2025 Alyssa Gillespie DIRECTOR PHARMACEUTICAL, DIRECTOR PHARMACEUTICAL-C Nurse Practitioner Active Start: January 31, 2025 Dr. Bandar Stubbs MD Attending physician Active Start: January 31, 2025 Dr. Bandar Stubbs MD Referring Provider Active Start: January 31, 2025 Team Status: Inactive Member Role/Relationship Status Dates Romelia Martin , PA Primary care physician Active Start: February 20, 2025 End: February 20, 2025 Romelia Martin , PA Referring Provider Active Star t: February 20, 2025 End: February 20, 2025 Dr. Wellington Moctezuma DO Attending physician Active Start: February 20, 2025 End: February 20, 2025 Team Status: Active Member Role/Relationship Status Dates Romeliania Martin , PA Primary care physician Active Start: February 20, 2025 Dr. Wellington Moctezuma DO Attending physician Active Start: February 20, 2025 Team Status: Inactive Member Role/Relationship Status Dates Romelia Veronica , PA Primary care physician Active Start: February 20, 2025 End: February 20, 2025 Romelia Veronica , PA Referring Provider Active Star t: February 20, 2025 End: February 20, 2025 Dr. Bandar Stubbs MD Attending physician Active Start: February 20, 2025 End: February 20, 2025 Team Status: Active Member Role/Relationship Status Dates Romelia Martin , PA Primary care physician Active Start: February 20, 2025 Dr. Bandar Stubbs MD Attending physician Active Start: February 20, 2025 Dr. Bandar Stubbs MD Referring Provider Active Start: February 20, 2025 Team Status: Active Member Role/Relationship Status Dates Romeliania Martin , PA Primary care physician Active Start: February 25, 2025 Dr. Wellington Moctezuma DO Attending physician Active Start: February 25, 2025 Team Status: Active Member Role/Relationship Status Dates Romelia Martin , PA Primary care physician Active Start: February 27, 2025 Dr. Wellington Moctezuma DO Attending physician Active Start: February 27, 2025 Team Status: Active Member Role/Relationship Status Dates Romelia Martin , PA Primary care physician Active Start: February 28, 2025 Dr. Wellington Moctezuma DO Attending physician Active Start: February 28, 2025 Team Status: Active Member Role/Relationship Status Dates Romelia Martin , PA Primary care physician Active Start: March 03, 2025 Dr. Wellington Moctezuma DO Attending physician Active Start: March 03, 2025 Team Status: Active Member Role/Relationship Status Dates Romeliania Martin , PA Primary care physician Active Start: March 05, 2025 Dr. Bandar Stubbs MD Attending physician Active Start: March 05, 2025 Dr. Bandar Stubbs MD Referring Provider Active Start: March 05, 2025 Team Status: Inactive Member Role/Relationship Status Dates Romelia Veronica , PA Primary care physician Active Start: March 05, 2025 End: March 05, 2025 Dr. Wellington Moctezuma DO Attending physician Active Start: March 05, 2025 End: March 05, 2025 Team Status: Inactive Member Role/Relationship Status Dates Romelia Martin , PA Primary care physician Active Start: November 21, 2024 End: November 21, 2024 Romelia Martin , PA Referring Provider Active Star t: November 21, 2024 End: November 21, 2024 Alyssa Gillespie DIRECTOR PHARMACEUTICAL, DIRECTOR PHARMACEUTICAL-C Attending physician Active Start: November 21, 2024 End: November 21, 2024 Team Status: Inactive Member Role/Relationship Status Dates Romelia Martin , PA Primary care physician Active Start: December 04, 2024 End: December 04, 2024 Romelia Martin , PA Referring Provider Active Star t: December 04, 2024 End: December 04, 2024 Dr. Bandar Stubbs MD Attending physician Active Start: December 04, 2024 End: December 04, 2024 Team Status: Inactive Member Role/Relationship Status Dates Romelia Martin , PA Primary care physician Active Start: December 13, 2024 End: December 13, 2024 Romelia Martin , PA Referring Provider Active Star t: December 13, 2024 End: December 13, 2024 Dr. Jennifer Duenas MD Attending physician Active Start: December 13, 2024 End: December 13, 2024 Team Status: Inactive Member Role/Relationship Status Dates Romelia Martin , PA Primary care physician Active Start: December 19, 2024 End: December 19, 2024 Romelia Martin , PA Referring Provider Active Star t: December 19, 2024 End: December 19, 2024 Alyssa Gillespie NP, DIRECTOR PHARMACEUTICAL-C Attending physician Active Start: December 19, 2024 End: December 19, 2024 Team Status: Inactive Member Role/Relationship Status Dates Romelia Martin , PA Primary care physician Active Start: December 20, 2024 End: December 20, 2024 Alyssa Gillespie DIRECTOR PHARMACEUTICAL, DIRECTOR PHARMACEUTICAL-C Attending physician Active Start: December 20, 2024 End: December 20, 2024 Alyssa Gillespie DIRECTOR PHARMACEUTICAL, DIRECTOR PHARMACEUTICAL-C Referring Provider Active Start: December 20, 2024 End: December 20, 2024 Team Status: Inactive Member Role/Relationship Status Dates Romelia Veronica , PA Primary care physician Active Start: December 23, 2024 End: December 23, 2024 Dr. Jennifer Duenas MD Attending physician Active Start: December 23, 2024 End: December 23, 2024 Dr. Jennifer Duenas MD Referring Provider Active Start: December 23, 2024 End: December 23, 2024 Team Status: Inactive Member Role/Relationship Status Dates Romelia Martin , PA Primary care physician Active Start: December 26, 2024 End: December 26, 2024 Rmoelia Martin , PA Referring Provider Active Star t: December 26, 2024 End: December 26, 2024 Alyssa Gillespie NP, DIRECTOR PHARMACEUTICAL-C Attending physician Active Start: December 26, 2024 End: December 26, 2024 Team Status: Inactive Member Role/Relationship Status Dates Romelia Martin , PA Primary care physician Active Start: January 02, 2025 End: January 02, 2025 Romelia Martin , PA Referring Provider Active Star t: January 02, 2025 End: January 02, 2025 Dr. Leighton Mercado MD Attending physician Active Start: January 02, 2025 End: January 02, 2025 Team Status: Inactive Member Role/Relationship Status Dates Romelia Martin , PA Primary care physician Active Start: January 16, 2025 End: January 16, 2025 Romelia Martin , PA Referring Provider Active Star t: January 16, 2025 End: January 16, 2025 Dr. Bandar Stubbs MD Attending physician Active Start: January 16, 2025 End: January 16, 2025 Team Status: Inactive Member Role/Relationship Status Dates Romelia Martin , PA Primary care physician Active Start: January 30, 2025 End: January 30, 2025 Romelia Martin , PA Referring Provider Active Star t: January 30, 2025 End: January 30, 2025 Alyssa Gillespie NP, DIRECTOR PHARMACEUTICAL-C Attending physician Active Start: January 30, 2025 End: January 30, 2025 Team Status: Active Member Role/Relationship Status Dates Romelia Veronica , PA Primary care physician Active Start: January 31, 2025 Alyssa Gillespie DIRECTOR PHARMACEUTICAL, DIRECTOR PHARMACEUTICAL-C Nurse Practitioner Active Start: January 31, 2025 Dr. Bandar Stubbs MD Attending physician Active Start: January 31, 2025 Dr. Bandar Stubbs MD Referring Provider Active Start: January 31, 2025 Team Status: Inactive Member Role/Relationship Status Dates Romelia Veronica , PA Primary care physician Active Start: February 20, 2025 End: February 20, 2025 Romelia Veronica , PA Referring Provider Active Star t: February 20, 2025 End: February 20, 2025 Dr. Wellington Moctezuma DO Attending physician Active Start: February 20, 2025 End: February 20, 2025 Team Status: Active Member Role/Relationship Status Dates Romelia Martin , PA Primary care physician Active Start: February 20, 2025 Dr. Wellington Moctezuma DO Attending physician Active Start: February 20, 2025 Team Status: Inactive Member Role/Relationship Status Dates Romelia Veronica , PA Primary care physician Active Start: February 20, 2025 End: February 20, 2025 Ormelia Veronica , PA Referring Provider Active Star t: February 20, 2025 End: February 20, 2025 Dr. Bandar Stubbs MD Attending physician Active Start: February 20, 2025 End: February 20, 2025 Team Status: Active Member Role/Relationship Status Dates Romelia Martin , PA Primary care physician Active Start: February 25, 2025 Dr. Wellington Moctezuma DO Attending physician Active Start: February 25, 2025 Team Status: Active Member Role/Relationship Status Dates Romelia Martin PA Primary care physician Active Start: February 27, 2025 Dr. Wellington Moctezuma DO Attending physician Active Start: February 27, 2025 Team Status: Active Member Role/Relationship Status Dates Romeliania Martin PA Primary care physician Active Start: February 28, 2025 Dr. Wellington Moctezuma DO Attending physician Active Start: February 28, 2025 Team Status: Active Member Role/Relationship Status Dates Romelia Martin PA Primary care physician Active Start: March 03, 2025 Dr. Wellington Moctezuma DO Attending physician Active Start: March 03, 2025 Team Status: Inactive Member Role/Relationship Status Dates Romelia Martin , PA Primary care physician Active Start: March 05, 2025 End: March 05, 2025 Dr. Wellington Moctezuma DO Attending physician Active Start: March 05, 2025 End: March 05, 2025 Team Status: Inactive Member Role/Relationship Status Dates Romelia Martin , PA Primary care physician Active Start: March 12, 2025 End: March 12, 2025 Romelia Martin , PA Referring Provider Active Star t: March 12, 2025 End: March 12, 2025 Dr. Wellington Moctezuma DO Attending physician Active Start: March 12, 2025 End: March 12, 2025 Team Status: Active Member Role/Relationship Status Dates Romelia Veronica , PA Primary care physician Active Start: March 12, 2025 Dr. Bandar Stubbs MD Attending physician Active Start: March 12, 2025 Dr. Bandar Stubbs MD Referring Provider Active Start: March 12, 2025 Team Status: Inactive Member Role/Relationship Status Dates Romelia Martin , PA Primary care physician Active Start: December 04, 2024 End: December 04, 2024 Romelia Martin , PA Referring Provider Active Star t: December 04, 2024 End: December 04, 2024 Dr. Bandar Stubbs MD Attending physician Active Start: December 04, 2024 End: December 04, 2024 Team Status: Inactive Member Role/Relationship Status Dates Romelia Martin , PA Primary care physician Active Start: December 13, 2024 End: December 13, 2024 Romelia Martin , PA Referring Provider Active Star t: December 13, 2024 End: December 13, 2024 Dr. Jennifer Duenas MD Attending physician Active Start: December 13, 2024 End: December 13, 2024 Team Status: Inactive Member Role/Relationship Status Dates Romelia Martin , PA Primary care physician Active Start: December 19, 2024 End: December 19, 2024 Romelia Martin , PA Referring Provider Active Star t: December 19, 2024 End: December 19, 2024 Alyssa Gillespie DIRECTOR PHARMACEUTICAL, DIRECTOR PHARMACEUTICAL-C Attending physician Active Start: December 19, 2024 End: December 19, 2024 Team Status: Inactive Member Role/Relationship Status Dates Romelia Martin , PA Primary care physician Active Start: December 20, 2024 End: December 20, 2024 Alyssa Gillespie DIRECTOR PHARMACEUTICAL, DIRECTOR PHARMACEUTICAL-C Attending physician Active Start: December 20, 2024 End: December 20, 2024 Alyssa Gillespie DIRECTOR PHARMACEUTICAL, DIRECTOR PHARMACEUTICAL-C Referring Provider Active Start: December 20, 2024 End: December 20, 2024 Team Status: Inactive Member Role/Relationship Status Dates Romeliania Martin , PA Primary care physician Active Start: December 23, 2024 End: December 23, 2024 Dr. Jennifer Duenas MD Attending physician Active Start: December 23, 2024 End: December 23, 2024 Dr. Jennifer Duenas MD Referring Provider Active Start: December 23, 2024 End: December 23, 2024 Team Status: Inactive Member Role/Relationship Status Dates Romelia Martin , PA Primary care physician Active Start: December 26, 2024 End: December 26, 2024 Romelia Martin , PA Referring Provider Active Star t: December 26, 2024 End: December 26, 2024 Alyssa Gillespie DIRECTOR PHARMACEUTICAL, DIRECTOR PHARMACEUTICAL-C Attending physician Active Start: December 26, 2024 End: December 26, 2024 Team Status: Inactive Member Role/Relationship Status Dates Romelia Martin , PA Primary care physician Active Start: January 02, 2025 End: January 02, 2025 Romelia Martin , PA Referring Provider Active Star t: January 02, 2025 End: January 02, 2025 Dr. Leighton Mercado MD Attending physician Active Start: January 02, 2025 End: January 02, 2025 Team Status: Inactive Member Role/Relationship Status Dates Romelia Martin , PA Primary care physician Active Start: January 16, 2025 End: January 16, 2025 Romelia Martin , PA Referring Provider Active Star t: January 16, 2025 End: January 16, 2025 Dr. Bandar Stubbs MD Attending physician Active Start: January 16, 2025 End: January 16, 2025 Team Status: Inactive Member Role/Relationship Status Dates Romelia Martin , PA Primary care physician Active Start: January 30, 2025 End: January 30, 2025 Romelia Martin , PA Referring Provider Active Star t: January 30, 2025 End: January 30, 2025 Alyssa Verna DIRECTOR PHARMACEUTICAL, DIRECTOR PHARMACEUTICAL-C Attending physician Active Start: January 30, 2025 End: January 30, 2025 Team Status: Inactive Member Role/Relationship Status Dates Romeliania Martin , PA Primary care physician Active Start: February 20, 2025 End: February 20, 2025 Romelia Martin , PA Referring Provider Active Star t: February 20, 2025 End: February 20, 2025 Dr. Wellington Moctezuma DO Attending physician Active Start: February 20, 2025 End: February 20, 2025 Team Status: Active Member Role/Relationship Status Dates Romeliania Martin , PA Primary care physician Active Start: February 20, 2025 Dr. Wellington Moctezuma DO Attending physician Active Start: February 20, 2025 Team Status: Inactive Member Role/Relationship Status Dates Romelia Veronica , PA Primary care physician Active Start: February 20, 2025 End: February 20, 2025 Romeliania Martin , PA Referring Provider Active Star t: February 20, 2025 End: February 20, 2025 Dr. Bandar Stubbs MD Attending physician Active Start: February 20, 2025 End: February 20, 2025 Team Status: Active Member Role/Relationship Status Dates Romelia Martin , PA Primary care physician Active Start: February 25, 2025 Dr. Wellington Moctezuma DO Attending physician Active Start: February 25, 2025 Team Status: Active Member Role/Relationship Status Dates Romeliania Martin , PA Primary care physician Active Start: February 27, 2025 Dr. Wellington Moctezuma DO Attending physician Active Start: February 27, 2025 Team Status: Active Member Role/Relationship Status Dates Romelia Martin , PA Primary care physician Active Start: February 28, 2025 Dr. Wellington Moctezuma DO Attending physician Active Start: February 28, 2025 Team Status: Active Member Role/Relationship Status Dates Romelia Martin PA Primary care physician Active Start: March 03, 2025 Dr. Wellington Moctezuma DO Attending physician Active Start: March 03, 2025 Team Status: Inactive Member Role/Relationship Status Dates Romeliania Martin , PA Primary care physician Active Start: March 05, 2025 End: March 05, 2025 Dr. Wellington Moctezuma DO Attending physician Active Start: March 05, 2025 End: March 05, 2025 Team Status: Inactive Member Role/Relationship Status Dates TTAE Genao Primary care physician Active Start: March 12, 2025 End: March 12, 2025 Romelia Martin PA Referring Provider Active Star t: March 12, 2025 End: March 12, 2025 Dr. Wellington Moctezuma DO Attending physician Active Start: March 12, 2025 End: March 12, 2025 Team Status: Active Member Role/Relationship Status Dates Romelia Martin PA Primary care physician Active Start: March 18, 2025 Alyssa Gillespie DIRECTOR PHARMACEUTICAL, DIRECTOR PHARMACEUTICAL-C Nurse Practitioner Active Start: March 18, 2025 Dr. Bandar Stubbs MD Attending physician Active Start: March 18, 2025 Dr. Bandar Stubbs MD Referring Provider Active Start: March 18, 2025 Team Status: Active Member Role/Relationship Status Dates TATE Genao Primary care physician Active Start: March 18, 2025 Dr. Bandar Stubbs MD Attending physician Active Start: March 18, 2025 Dr. Bandar Stubbs MD Referring Provider Active Start: March 18, 2025 Team Status: Inactive Member Role/Relationship Status Dates Romelia Martin PA Primary care physician Active Start: March 19, 2025 End: March 19, 2025 Romelia Martin PA Referring Provider Active Star t: March 19, 2025 End: March 19, 2025 Dr. Wellington Moctezuma DO Attending physician Active Start: March 19, 2025 End: March 19, 2025 Team Status: Inactive Member Role/Relationship Status Dates Romelia Martin PA Primary care physician Active Start: March 26, 2025 End: March 26, 2025 Dr. Wellington Moctezuma DO Attending physician Active Start: March 26, 2025 End: March 26, 2025 Team Status: Active Member Role/Relationship Status Dates Romelia Martin PA Primary care physician Active Start: April 01, 2025 Dr. Bandar Stubbs MD Attending physician Active Start: April 01, 2025 Dr. Bandar Stubbs MD Referring Provider Active Start: April 01, 2025 Team Status: Inactive Member Role/Relationship Status Dates Romelia Martin PA Primary care physician Active Start: December 19, 2024 End: December 19, 2024 Romelia Martin , PA Referring Provider Active Star t: December 19, 2024 End: December 19, 2024 Alyssa Gillespie DIRECTOR PHARMACEUTICAL, DIRECTOR PHARMACEUTICAL-C Attending physician Active Start: December 19, 2024 End: December 19, 2024 Team Status: Inactive Member Role/Relationship Status Dates Romelia Martin , PA Primary care physician Active Start: December 20, 2024 End: December 20, 2024 Alyssa Gillespie DIRECTOR PHARMACEUTICAL, DIRECTOR PHARMACEUTICAL-C Attending physician Active Start: December 20, 2024 End: December 20, 2024 Alyssa Verna DIRECTOR PHARMACEUTICAL, DIRECTOR PHARMACEUTICAL-C Referring Provider Active Start: December 20, 2024 End: December 20, 2024 Team Status: Inactive Member Role/Relationship Status Dates Romeliania Martin , PA Primary care physician Active Start: December 23, 2024 End: December 23, 2024 Dr. Jennifer Duenas MD Attending physician Active Start: December 23, 2024 End: December 23, 2024 Dr. Jennifer Duenas MD Referring Provider Active Start: December 23, 2024 End: December 23, 2024 Team Status: Inactive Member Role/Relationship Status Dates Romelia Martin , PA Primary care physician Active Start: December 26, 2024 End: December 26, 2024 Romelia Martin , PA Referring Provider Active Star t: December 26, 2024 End: December 26, 2024 Alyssa Gillespie DIRECTOR PHARMACEUTICAL, DIRECTOR PHARMACEUTICAL-C Attending physician Active Start: December 26, 2024 End: December 26, 2024 Team Status: Inactive Member Role/Relationship Status Dates Romelia Martin , PA Primary care physician Active Start: January 02, 2025 End: January 02, 2025 Romelia Martin , PA Referring Provider Active Star t: January 02, 2025 End: January 02, 2025 Dr. Leighton Mercado MD Attending physician Active Start: January 02, 2025 End: January 02, 2025 Team Status: Inactive Member Role/Relationship Status Dates Romelia Martin , PA Primary care physician Active Start: January 16, 2025 End: January 16, 2025 Romelia Martin , PA Referring Provider Active Star t: January 16, 2025 End: January 16, 2025 Dr. Bandar Stubbs MD Attending physician Active Start: January 16, 2025 End: January 16, 2025 Team Status: Inactive Member Role/Relationship Status Dates Romelia Martin PA Primary care physician Active Start: January 30, 2025 End: January 30, 2025 Romeliania Martin , PA Referring Provider Active Star t: January 30, 2025 End: January 30, 2025 Alyssa Gillespie DIRECTOR PHARMACEUTICAL, DIRECTOR PHARMACEUTICAL-C Attending physician Active Start: January 30, 2025 End: January 30, 2025 Team Status: Inactive Member Role/Relationship Status Dates TATE Genao Primary care physician Active Start: February 20, 2025 End: February 20, 2025 Romelia Martin , PA Referring Provider Active Star t: February 20, 2025 End: February 20, 2025 Dr. Wellington Moctezuma DO Attending physician Active Start: February 20, 2025 End: February 20, 2025 Team Status: Active Member Role/Relationship Status Dates TATE Genao Primary care physician Active Start: February 20, 2025 Dr. Wellington Moctezuma DO Attending physician Active Start: February 20, 2025 Dr. Wellington Moctezuma DO Referring Provider Active Start: February 20, 2025 Team Status: Inactive Member Role/Relationship Status Dates TATE Genao Primary care physician Active Start: February 20, 2025 End: February 20, 2025 Romeliania Martin PA Referring Provider Active Star t: February 20, 2025 End: February 20, 2025 Dr. Bandar Stubbs MD Attending physician Active Start: February 20, 2025 End: February 20, 2025 Team Status: Active Member Role/Relationship Status Dates TATE Genao Primary care physician Active Start: February 25, 2025 Dr. Wellington Moctezuma DO Attending physician Active Start: February 25, 2025 Dr. Wellington Moctezuma DO Referring Provider Active Start: February 25, 2025 Team Status: Active Member Role/Relationship Status Dates TATE Genao Primary care physician Active Start: February 27, 2025 Dr. Wellington Moctezuma DO Attending physician Active Start: February 27, 2025 Dr. Wellington Moctezuma DO Referring Provider Active Start: February 27, 2025 Team Status: Active Member Role/Relationship Status Dates TATE Genao Primary care physician Active Start: February 28, 2025 Dr. Wellington Moctezuma DO Attending physician Active Start: February 28, 2025 Dr. Wellington Moctezuma DO Referring Provider Active Start: February 28, 2025 Team Status: Active Member Role/Relationship Status Dates Romelia Martin PA Primary care physician Active Start: March 03, 2025 Dr. Wellington Moctezuma DO Attending physician Active Start: March 03, 2025 Team Status: Inactive Member Role/Relationship Status Dates Romeliania Martin , PA Primary care physician Active Start: March 05, 2025 End: March 05, 2025 Dr. Wellington Moctezuma DO Attending physician Active Start: March 05, 2025 End: March 05, 2025 Team Status: Inactive Member Role/Relationship Status Dates Romeliania Martin , PA Primary care physician Active Start: March 12, 2025 End: March 12, 2025 Romelia Bean , PA Referring Provider Active Star t: March 12, 2025 End: March 12, 2025 Dr. Wellington Moctezuma DO Attending physician Active Start: March 12, 2025 End: March 12, 2025 Team Status: Inactive Member Role/Relationship Status Dates Romeliania Martin PA Primary care physician Active Start: March 18, 2025 End: March 18, 2025 Dr. Bandar Stubbs MD Attending physician Active Start: March 18, 2025 End: March 18, 2025 Dr. Bandar Stubbs MD Referring Provider Active Start: March 18, 2025 End: March 18, 2025 Team Status: Inactive Member Role/Relationship Status Dates Romeliania Martin , PA Primary care physician Active Start: March 19, 2025 End: March 19, 2025 Romelia Veronica , PA Referring Provider Active Star t: March 19, 2025 End: March 19, 2025 Dr. Wellingtno Moctezuma DO Attending physician Active Start: March 19, 2025 End: March 19, 2025 Team Status: Inactive Member Role/Relationship Status Dates Romeliania Martin , PA Primary care physician Active Start: March 26, 2025 End: March 26, 2025 Dr. Wellington Moctezuma DO Attending physician Active Start: March 26, 2025 End: March 26, 2025 Team Status: Inactive Member Role/Relationship Status Dates Romelia Veronica , PA Primary care physician Active Start: April 02, 2025 End: April 02, 2025 Romelia Martin , PA Referring Provider Active Star t: April 02, 2025 End: April 02, 2025 Dr. Wellington Moctezuma DO Attending physician Active Start: April 02, 2025 End: April 02, 2025 Team Status: Active Member Role/Relationship Status Dates Romeliania Martin , PA Primary care physician Active Start: April 07, 2025 Dr. Wellington Moctezuma DO Attending physician Active Start: April 07, 2025 Team Status: Inactive Member Role/Relationship Status Dates Romelia Martin , PA Primary care physician Active Start: April 09, 2025 End: April 09, 2025 Romelia Martin , PA Referring Provider Active Star t: April 09, 2025 End: April 09, 2025 Dr. Jennifer Duenas MD Attending physician Active Start: April 09, 2025 End: April 09, 2025 Team Status: Inactive Member Role/Relationship Status Dates Romelia Veronica , PA Primary care physician Active Start: April 09, 2025 End: April 09, 2025 Dr. Wellington Moctezuma DO Attending physician Active Start: April 09, 2025 End: April 09, 2025 Team Status: Active Member Role/Relationship Status Dates Romelia Martin , PA Primary care physician Active Start: April 11, 2025 Dr. Bandar Stubbs MD Attending physician Active Start: April 11, 2025 Dr. Bandar Stubbs MD Referring Provider Active Start: April 11, 2025 Team Status: Active Member Role/Relationship Status Dates Romelia Veronica , PA Primary care physician Active Start: April 11, 2025 Dr. Wellington Moctezuma DO Attending physician Active Start: April 11, 2025 Team Status: Inactive Member Role/Relationship Status Dates Romelia Martin , PA Primary care physician Active Start: April 14, 2025 End: April 14, 2025 Romelia Martin , PA Referring Provider Active Star t: April 14, 2025 End: April 14, 2025 Alyssa iGllespie DIRECTOR PHARMACEUTICAL, DIRECTOR PHARMACEUTICAL-C Attending physician Active Start: April 14, 2025 End: April 14, 2025 Team Status: Active Member Role/Relationship Status Dates Romelia Martin , PA Primary care physician Active Start: April 14, 2025 Alyssa Gillespie NP, DIRECTOR PHARMACEUTICAL-C Nurse Practitioner Active Start: April 14, 2025 Dr. Bandar Stubbs MD Attending physician Active Start: April 14, 2025 Dr. Bandar Stubbs MD Referring Provider Active Start: April 14, 2025 Goals (unrecognized section and content) Goals may be documented in a n alternate sectionGoals may be documented in an alternate sectionGoals may be documented in an alternate sectionGoals may be documented in an alternate sectionGoals may be documented in an alternate sectionGoals may be documented in an alternate sectionGoals may be documented in an alternate sectionGoals may be documented in an alternate sectionGoals may be documented in an alternate sectionGoals may be documented in an alternate section Source Comments (unrecognize d section and content) In the event this informatio n is protected by the Federal Confidentiality of Alcohol and Drug Abuse Patient Records regulations: The Federal rules restrict any use of the information to criminally investigate or prosecute any alcohol or drug abuse patient.[facility] the event this information is protected by the Federal Confidentiality of Alcohol and Drug Abuse Patient Records regulations: The Federal rules restrict any use of the information to criminally investigate or prosecute any alcohol or drug abuse patient.[facility] Reason for Visit (unrecogniz ed section and content) Reason Comments Appointment Reason Comments New Patient FOR RECORDS PERTAINING TO PATIENTS WHO ARE OR HAVE BEEN ENROLLED IN A CHEMICAL DEPENDENCY/SUBSTANCEABUSE PROGRAM, SOME INFORMATION MAY BE OMITTED. This clinical summary was aggregated from multiple sources. Caution should be exercised in using it in the provision of clinical care. This summary normalizes information from multiple sources, and as a consequence, information in this document may materially change the coding, format and clinical context of patient data. In addition, data may be omitted in some cases. CLINICAL DECISIONS SHOULD BE BASED ON THE PRIMARY CLINICAL RECORDS. [facility] provides no warranty or guarantee of the accuracy or completeness of information in this document.
[2025-05-02 06:50] LABS: Internal QC Validated? YES +Cl - CLEAR BKGD; Pregnancy, Urine Negative Negative; Record Kit Lot#,Urine Preg 0000980607
[2025-05-02] MEDS: Lactated Ringers 1,000 ML 15 ML IV (06:59)
--- NOTE | 2025-05-02 07:07 | PCM.HP.BLA ---
History and Physical Date of Admission: 05/02/25 Intake Vital Signs 03/05/2509:46 03/26/2509:48 04/02/2509:53 04/09/2508:50 04/09/2508:56 Height 5 ft 9 in 5 ft 9 in 5 ft 9 in 5 ft 9 in 5 ft 9 in Weight: 162 lb 8 oz 161 lb 5 oz BMI 24.0 23.8 BP 111/72 113/74 Blood Pressure Location Rt brachial Position Sitting Respiration 16 Pulse 72 Pulse Source Monitor Temp 96.9 F L Temperature Source Temporal Artery Pulse Oximetry (%) 100 Oxygen Delivery Method room air Intake Visit Reasons: BS Chief Complaint: preop Kennel Hand Required: No Is patient in pain?: No Allergies No Known Allergies Allergy (Verified 04/09/25 08:50) Medications ?Medication ?Instructions ?Recorded ?Confirmed ?Type ascorbic acid (vitamin C) 500 mg 500 mg PO DAILY 08/01/24 04/09/25 History tablet (C-500) cholecalciferol (vitamin D3) 25 25 mcg PO DAILY 08/01/24 04/09/25 History mcg (1,000 unit) capsule (Vitamin D3) trazodone 50 mg tablet 50 mg PO QHS insomnia #30 tabs 04/09/25 04/09/25 Rx Is last menstrual period known: No Post menopausal: No Patient : No : No PFSH Medical History Transaminitis Regional lymph node metastasis present Encounter for chemotherapy management Well woman exam Ovarian cyst Encounter for education Wears glasses Low iron Restless leg syndrome History of migraine Non-smoker Iron deficiency anemia due to chronic blood loss Breast cancer Abnormal mammogram of left breast Surgical History Status post left breast lumpectomy History of Family History Mother CVA (cerebral vascular accident) Social History household members: spouse and children number of children: 3 current occupational status: employed current occupation: [employer] Smoking Status: Never smoker alcohol intake: never substance use type: does not use seatbelt use: always do you feel safe at home: Yes additional social history: - [employer] [facility] BS Details: STEPHANIE LIN is a 49 year old who presents for HPI Comments Details: The patient is a female with a history of breast cancer presenting for a follow-up visit. Breast Cancer - Currently undergoing radiation therapy for breast cancer, with the final treatment scheduled for this coming Monday. - Reports significant skin irritation and burning on the left side due to radiation, which is affecting sleep. - Experiences fatigue and describes feeling anil. - No nausea or vomiting; appetite remains stable. - Denies chest pain, shortness of breath, cough, or wheezing. - Completed chemotherapy. Menopausal Symptoms - Reports joint aches, back pain, and low energy, attributing these symptoms to menopause. - Experiencing poor sleep quality, often waking up at 4:00 AM and unable to return to sleep. - Denies vaginal bleeding, itching, burning, odor, or discharge. Surgical Concerns - Scheduled for a laparoscopic bilateral salpingo-oophorectomy. - Denies any current pelvic pain or pressure. - Expresses anxiety about having her port removed and inquires if it can be done during the upcoming surgery. Current Medications and Supplements - Vitamin D3 - Vitamin C History 3 Elective abortions Hx Para 3 Spontaneous abortions Hx # Term Pregnancies 2 Ectopic pregnancies Hx # Pregnancies 1 Multiple births # of living children 3 Past Pregnancies Del. Date Name GA/Weeks Outcome Route Bth Weight Infant Gen Labor Lgth Anesthesia Del [facility] Provider FOB Unknown William 1996 Female Unknown Cholo 1999 Female Unknown Chinyere 2007 Female ROS ROS Narrative Constitutional: (+) fatigue, (+) low energy Skin: (+) left-sided skin irritation/burn Musculoskeletal: (+) diffuse joint pain, (+) back pain Psychiatric: (+) insomnia Gastrointestinal: (-) nausea, (-) vomiting, (-) decreased appetite Cardiovascular: (-) chest pain Respiratory: (-) shortness of breath, (-) cough, (-) wheezing Genitourinary: (-) pelvic pain, (-) pelvic pressure, (-) vaginal bleeding, (-) vaginal itching, (-) vaginal burning, (-) vaginal odor, (-) vaginal discharge Neurological: (-) neurological symptoms Exam Const General: cooperative, healthy appearing, comfortable and no acute distress Orientation: alert [facility] Head: normal to inspection and normocephalic Ears: hearing grossly normal bilaterally and external ears normal Nose: external nose normal and nares normal Face and sinus: normal facial exam Neck Neck: normal visual inspection and no lymphadenopathy Thyroid: thyroid normal Chest Chest palpation & inspection: normal inspection of the chest Resp Effort & Inspection: normal respiratory effort Auscultation: clear to auscultation bilaterally Cardio Rate: regular rate Rhythm: regular rhythm Heart Sounds: S1 normal and S2 normal GI Inspection: normal to inspection and non-distended Palpation: soft and no hepatosplenomegaly Musc Other: gross motor intact no deficits, full bilateral strength Skin General: no rashes or lesions noted Neuro General: patient alert, patient awake, moves all extremities and no focal motor deficits Motor: muscle tone normal throughout Extrem General: normal to inspection and no pedal edema Psych Appearance: grossly normal Mental Status: mental status grossly normal Affect: normal affect Speech and Movement: speech and movement normal Coding Level of Care Code No Charge Diagnoses Ovarian cyst N83.209 Insomnia G47.00 Assessment and Plan Assessment and Plan (1) Ovarian cyst: Status: Acute Comment: repeat US ordered and cea and ca 125. plan laparoscopic BSO (2) Insomnia: Status: Acute Comment: trazodone Medications: New trazodone 50 mg PO QHS 30 tabs 12RF insomnia Plan # Malignant neoplasm of upper-outer quadrant of left female breast (C50.412): - Patient completing final session of radiation therapy this Monday; all chemotherapy completed previously. - No additional breast cancer?specific management changes discussed at this time. - Patient advised to verify safety of trazodone with oncology team for insomnia management, though no contraindications anticipated. 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 from radiation, causing discomfort and difficulty sleeping. - No additional therapies or interventions prescribed during this visit. # Encounter for other preprocedural examination (Z01.818): - Laparoscopic bilateral salpingo-oophorectomy reviewed; three small incisions will be used, largest at the umbilicus for specimen extraction. - Risks, including bleeding, infection, general anesthesia complications, and potential injury to bowel or bladder, were explained; patient consents to proceed. - Advised use of special antibacterial soap the night before and morning of the procedure. - Informed patient that a test is mandatory; patient consents to necessary blood products in an emergency. - Consult advised with surgeon (Dr. Hammond) regarding port removal under the same anesthesia if feasible. - Procedure scheduled on Monday; patient verbalized understanding and agreement. # Insomnia (G47.00): - Initiated trazodone 50 mg nightly, with the option to increase to 100 mg as needed. - Advised patient to take dose one hour before bedtime, maintain consistent sleep schedule, and aim for 6-8 hours of rest. - Confirmed non-hormonal nature of treatment and low risk of side effects such as abnormal dreams. # Ovarian cyst (N83.209): Patient Instructions: - Start trazodone 50 mg by mouth each night about one hour before bedtime to help you fall and stay asleep; take it at the same time every night. If 50 mg is not enough, you may increase to 100 mg per night. - Use the special antimicrobial soap the night before and the morning of your surgery to help reduce infection risk. - You will have a test completed prior to your procedure as required. - Your surgery is scheduled for this Monday (Monday): laparoscopic bilateral salpingo-oophorectomy (removal of both ovaries and tubes) under general anesthesia with three small incisions. - You have agreed to receive blood products in a life-saving emergency if needed.
--- NOTE | 2025-05-02 07:15 | PRE.ANES_ITS ---
ASA Classification* ASA Classification ASA Classification: 2 Assessment & Plan Anesthesia* Anesthesia Assessment Anesthesia Assessment: Discussed sedation and/or anesthesia options, risks, benefits, and alternatives with patient/parents/legal guardian/POA. Questions invited. The patient/parents/legal guardian/POA seems to understand and agrees to proceed with anesthesia plan. Reviewed the physical assessment, medical history, allergy history and patient home medications list prior to surgery/procedure/anesthetic and documented any changes. Performed airway and anesthesia risk assessments. Anesthesia Type Anesthesia Type: General Anesthesia Focused Assessment* Temperature: 98.3 F Pulse Rate: 90 Blood Pressure: 107/67 Respiratory Rate: 18 Pulse Ox: 100 Airway Assessment Mouth opens: >3 cm Mallampati Score: II Labs Anesthesia Preop lab: CBC WBC, (4.4-11.0) 3.3 K/mm3 L 04/21/25, 07:38 RBC, (4.2-5.4) 5.00 M/mm3 04/21/25, 07:38 Hgb, (12.0-15.0) 14.1 g/dL 04/21/25, 07:38 Hct, (37-47) 42.4 % 04/21/25, 07:38 Plt Count, (150-450) 168 K/mm3 04/21/25, 07:38 CHEMISTRY Potassium, (3.3-5.1) 4.1 mmol/L 04/21/25, 07:38 Sodium, (133-145) 144 mmol/L 04/21/25, 07:38 Magnesium, (1.5-2.2) 2.0 mg/dL 01/30/25, 09:26 Phosphorus, (2.7-4.5) 3.8 mg/dL 01/30/25, 09:26 BUN, (4-19) 12 mg/dL 04/21/25, 07:38 Creatinine, (0.70-1.20) 0.62 mg/dL L 04/21/25, 07:38 Glucose, (70-99) 98 mg/dL 04/21/25, 07:38 COAG Urine Test Negative Negative Today, 06:40 Pre-Assessment Diagnosis/Proposed Procedure Planned Operative Procedure(s): (B) Laparoscopic, Salpingo-oopherectomy Anesthesia History Anesthesia History - head operator sulfide: Anesthesia History - head operator sulfide Hx Hospitalization No 04/18/25 10:52 Any Problems With Anesthesia No 04/18/25 10:52 Cholinesterase deficiency No 04/18/25 10:52 You/Your Family Experience No 04/18/25 10:52 fever (hyperthermia) with Relationship Recent Exposure to Contagious No 05/02/25 06:49 Disease Does patient have nerve No 04/18/25 10:52 stimulator Patient instructed to have device shut off --Does patient have Pacemaker No 05/02/25 06:49 or ICD? When Was Last Pacemaker Check QUESTION #4 FULL TEXT: You/Your Family Experience fever (hyperthermia) with Anesthesia Last Oral Intake Last Oral intake: Last Oral Intake NPO since 23:00 05/02/25 06:49 Meds taken in AM with sips of No 05/02/25 06:49 water? Meds patient instructed to take am of surgery PONV PONV - head operator sulfide: PONV - head operator sulfide Female Yes 04/18/25 10:52 HX of Motion Sickness Yes 04/18/25 10:52 HX of N/V After Surgery No 04/18/25 10:52 Non-Smoker Yes 04/18/25 10:52 Duration of Surgery greater Yes 04/18/25 10:52 than 60 minutes Number of Risk Factors 4 04/18/25 10:52 PONV Score Severe Risk 04/18/25 10:52 Height & Weight Height & Weight: Anesthesia: Height & Weight Height 5 ft 9 in 05/02/25 06:49 Weight: 72 kg 05/02/25 06:49 Body Mass Index (BMI) 23.4 05/02/25 06:49 Respiratory Assessment Respiratory Assessment - head operator sulfide: Respiratory Tract Infection Hx - head operator sulfide Hx Respiratory Tract Infection No 04/18/25 10:52 STOP Sleep Apnea STOP Sleep Apnea - head operator sulfide: STOP Sleep Apnea - head operator sulfide Hx Hypertension No 04/18/25 10:52 Hx Sleep Apnea No 04/18/25 10:52 CPAP BIPAP Do you snore loudly (louder No 04/18/25 10:52 than talking or can be heard Do you often feel tired/ No 04/18/25 10:52 fatigued/ sleepy during daytime? Has anyone observed you stop No 04/18/25 10:52 breathing during sleep? STOP Results Negative 04/18/25 10:52 QUESTION #5 FULL TEXT : Do you snore loudly (louder than talking or can be heard through closed doors)? 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 Specify any problems Hx of Preganancy in last 3 No 04/18/25 10:52 Months Nurse Filling Out Transfusion JZOLLINGE 04/18/25 10:52 & Questions: Date: 04/18/25 04/18/25 10:52 Time: 10:54 04/18/25 10:52 Patient unable to answer at this time (ie. confused, unrespo /Reproduction History /Reproductive History - head operator sulfide: /Reproductive Hx- head operator sulfide Hx Now No 04/18/25 10:52 Gestational Age (in weeks): EDC: Hx Hx Para Hx Section SAB No 04/18/25 10:52 Does the father of the baby or his family experience fever w Father of the baby Malignant Hypertension history comment Active Medications Active Medications: Current Medications Generic Name Dose Route Start Last Admin Trade Name Freq PRN Reason Stop Dose Admin Lactated Ringer's 1,000 mls @ 15 mls/hr 05/02/25 06:45 05/02/25 06:59 IV 15 mls/hr .Q48H PAYTON Administration PFSH Medical History Transaminitis Regional lymph node metastasis present Encounter for chemotherapy management Well woman exam Ovarian cyst Encounter for education Wears glasses Low iron Restless leg syndrome History of migraine Non-smoker Iron deficiency anemia due to chronic blood loss Breast cancer Abnormal mammogram of left breast Home Medications ?Medication ?Instructions ?Recorded ?Last Taken ?Type ascorbic acid (vitamin C) 500 mg 500 mg PO DAILY 08/0105/01/25 History tablet (C-500) cholecalciferol (vitamin D3) 25 25 mcg PO DAILY 05/01/25 History mcg (1,000 unit) capsule (Vitamin D3) trazodone 50 mg tablet 50 mg PO QHS insomnia #30 ta bs 04/09/25 05/01/25 Rx Allergy/AdvReac Type Severity Reaction Status Date / Time No Known Allergies Allergy Verified 05/02/25 06:47 Family History Mother CVA (cerebral vascular accident) Surgical History Status post left breast lumpectomy History of Social History household members: spouse and children number of children: 3 current occupational status: employed current occupation: [employer] Smoking Status: Never smoker alcohol intake: never substance use type: does not use seatbelt use: always do you feel safe at home: Yes additional social history: - [employer] Review of Systems (Anesthesia) ROS Narrative System reviewed and no additional complaints, except as documented.
[2025-05-02] MEDS: Lactated Ringers 1,000 ML 1000 ML IV (08:12)
[2025-05-02] MEDS: Midazolam 2 MG/2 ML Syringe IV (08:12)
--- NOTE | 2025-05-02 08:12 | PCM.OPRPT ---
Multi Select Codes Urinary/Genital Urinary/Genital CPT Codes: 17453 Laproscopic BS/O Operative Report (Standard) Operative Information Date of Procedure: 05/02/25 Pre-Operative Diagnosis: see problem list Post-Operative Diagnosis: same Surgery/Procedure Performed: laparoscopic bso director patient accounting: Yes Document Examiner: Fabrizio Sarah Tasks completed by teacher's assistant: Opening & closing, Altering tissue and Insert Trochanter Additional food and nutrition services assistant?: No Type of Anesthesia: General RN Documented Start/Stop Times: Operation Date: 05/02/25 08:15 Case Time Into Pre-Op 05/02/25 06:35 Out of Pre-Op 05/02/25 08:09 Anesthesia Start 05/02/25 08:12 Into Room 05/02/25 08:12 Procedure Start 05/02/25 08:34 Procedure End 05/02/25 09:51 Anesthesia End 05/02/25 09:55 Out of Room 05/02/25 09:55 Into Recovery 05/02/25 09:56 Procedure Start Time: 08:34 Procedure Stop Time: 09:51 Select all DRAINS/GRAFTS/IMPLANTS that apply: None Estimated Blood Loss: 50 Specimen collected: Yes Description of specimen(s) removed: Bilateral tubes and ovaries cytologic washings ovarian fluid Description of surgery: Patient was taken in the operating room and was placed under general anesthesia was prepped and draped in normal sterile fashion in the dorsal lithotomy position. Bladder was drained of clear urine and SCDs were on preoperatively. Uterus was sounded and a uterine manipulator was placed after dilating. Attention was then paid to the abdominal portion of the procedure and the umbilicus was elevated with towel clamps and injected with Marcaine and after a 5 mm incision was made and the Veress needle was entered into the abdomen confirmed to be intra-abdominal with a low opening pressure of less than 5 mmHg. Abdomen was insufflated with CO2 gas and a 5 mm optical trocar was placed under direct visualization this was then swapped out for a 12 mm trocar after visualizing the left ovary and noting the size of the ovary. Left and right lower quadrant 5 mm ports were placed under direct visualization. Uterus was well visualized and upon inspection of the pelvis the uterus was noted to be completely adherent to the anterior abdominal wall and omentum was adherent to the anterior abdominal wall the right ovary was adherent to the omentum. Adhesiolysis was performed on the omental to anterior abdominal wall adhesions and the omental to right ovarian adhesions. Left sigmoid colon to pelvic sidewall adhesions were also taken down. Adhesiolysis took over 45 minutes. Pelvic washings were taken. The left ovary and tube were elevated and transected across the infundibulopelvic ligament to the level of the uterine ovarian artery which was transected and the ovary placed in the cul-de-sac. The right ovary 2 omental adhesions were taken down and then the utero-ovarian ligament and then the IP ligament were taken down the right side and the fallopian tube to anterior abdominal wall adhesions were taken down. The uterine to anterior abdominal wall adhesions were not taken down due to the lack of benefit to the patient unless you are having a hysterectomy at this time and the fear of reformation of scar tissue in the future. And the risk of possible injury to the bladder or the uterus necessitating for possible hysterectomy without consent. If the patient needs to have a hysterectomy in the future it will be recommended that she have a robotic hysterectomy due to the severe pelvic adhesions. Both ovaries were placed in a bag and taken out through the umbilicus the ovary was drained inside the bag with no intra-abdominal spillage. Fluid sent for analysis. Excellent hemostasis was noted in the pelvis. Umbilical port site closed with 0 Vicryl through the fascia using the Adam Graham. Liver and upper abdomen were visualized notably within normal limits and no other gross abnormalities were seen in the abdomen. All instruments removed from the abdomen after gas was desufflated. Port sites were closed with 3-0 Monocryl Steri's and op sites were applied. All instruments removed from the vagina and patient was awoken and taken recovery in stable condition. Surgical Findings: Severe pelvic adhesions and large left ovary Complications Complications: No
[2025-05-02] MEDS: Lidocaine 1% (5 ml sdv) 5 ML Vial 8 ML IV (08:15)
--- NOTE | 2025-05-02 08:15 | FLU_PTH ---
PATIENT: STEPHANIE LIN LOC: [facility] – [place] U#:[id number] AGE/SX: 49/F ROOM: RE05/02/[address]: Dr. Jennifer Gallego MD : 1975 BED: DIS: 05/02/2025 SPEC #: [id number] RECD: 05/02/25 09:43 STATUS: CAMPOS REQ #: [id number] ROSITA: 05/02/25 08:[address]: Jennifer Gallego DEPT: CYTOLOGY RECD BY: Disha Ramirez ENTERED: 05/02/25 12:04 SP TYPE: Fluid OTHR DR: MD Keira Min PA Tissues: A - Pelvis, NOS B - OVARIAN CYST Procedures: Special Stain Group II Surgery Specimen Level IV Cytospin Fluid HEADER OPERATION: Laparoscopic bilateral salpingo-oopherectomy, pelvic washings PRE-OP DIAGNOSIS: Malignant neoplasm of upper-outer quadrant of left female breast, ovarian cyst TISSUE SUBMITTED: A- Pelvic washings, B- Left ovarian cyst fluid DIAGNOSIS CYTOLOGY A. Pelvic washings (cytospin, cellblock): - No malignant cells identified - see Comment. B. Left ovary, cyst, aspiration (cytospin, cellblock): - No malignant cells identified - see Comment. COMMENT Corresponding case: [id number] CYTOLOGY STUDY Slides are reviewed. CYTOLOGY GROSS A. Received is 35 ml of cloudy-opaque fluid labeled with the patient's name and and designated per the requisition as pelvic washings. Submitted for cytology and cell block preparation. B. Received is 85 ml of yellow-cloudy fluid labeled with the patient's name and and designated per the requisition as Left ovarian cyst fluid. Submitted for cytology and cell block preparation. [place] 05/02/2025 CPT: 15967x2,66008o3
--- NOTE | 2025-05-02 08:15 | FALS_PTH ---
PATIENT: STEPHANIE LIN [place] [facility] [place][id number] AGE/SX: 49/F ROOM: RE05/02/[address]: Dr. Jennifer Gallego MD : 1975 BED: DIS: 05/02/2025 SPEC #: [id number] RECD: 05/02/25 09:43 STATUS: EVELIN RETahmina #: [id number] ROSITA: 05/02/25 08:[address]: Jennifer Gallego DEPT: SURGICAL PATHOLOGY RECD BY: Roberto Elise ENTERED: 05/02/25 11:55 SP TYPE: FALL TUBES OTHR DR: MD Keira Min PA Tissues: A - Fallopian tube Procedures: Immunohistochemical Stains Surgery Specimen Level II IHC Stain ADDITIONAL HEADER OPERATION: Laparoscopic bilateral salpingo-oopherectomy, pelvic washings PRE-OP DIAGNOSIS: Malignant neoplasm of upper-outer quadrant of left female breast, ovarian cyst TISSUE SUBMITTED: A- Bilateral fallopian tubes, bilateral ovaries MICROSCOPIC DIAGNOSIS A. Fallopian tubes and ovaries, bilateral salpingo-oophorectomy: - Mucinous cystadenoma, ovary #2. COMMENT Corresponding case : [id number] MICROSCOPIC DESCRIPTION Slides are reviewed. GROSS DESCRIPTION A. Received in formalin labeled with the patient's name and date of . Designated as bilateral fallopian tubes, bilateral ovaries are 2 undesignated fallopian tubes and 2 undesignated ovaries as follows: Fallopian tube #1: [place]-purple, fimbriated fallopian tube measuring 3.8 x 0.7 cm and contains a white clamp (consistent with contraceptive device). Fallopian tube #2: [place]-purple, shaggy fimbriated fallopian tube in 2 pieces, collectively measuring 6.3 x 0.7 cm and contains a white clamp (consistent with contraceptive device). Ovary #1: [place]-white, with solid cut surfaces and measuring approximately 1.8 x 1.5 x 0.5 cm. It has attached yellow soft tissue and is attached to fallopian tube #1. Ovary #2: [place]-pink to white and cystic with patchy yellow discoloration, weighing 65.7 g and measuring 9.0 x 6.2 x 2.6 cm. Opening reveals straw-colored serous fluid and a wrinkled, focally calcified and focally cystic, cyst wall, devoid of definitive excrescences. The cut surfaces of the minimal ovarian parenchyma are pink-red and soft. Cadet Deck sections are submitted are submitted in 8 cassettes as follows: A1-A2: Fallopian tube #2A3: Fallopian tube #1A4: Ovary #1A5: Ovary #2A6-A8: Ovary #2 cyst wall [place] 05/02/2025 CPT:[id number]
[2025-05-02] MEDS: fentaNYL 100 MCG/2 ML Ampul IV (08:52)
--- NOTE | 2025-05-02 09:59 | PCM.POST.ANE ---
Anesthesia: Postop Eval I Current Vital Signs Temperature: 97.8 F Pulse Rate: 96 Blood Pressure: 123/54 Respiratory Rate: 16 Pulse Ox: 95 Assessment Airway patent: Yes Spontaneous unlabored respirations: Yes nausea: No Vomiting: No Anesthesia Complication: No Fluid Hydration Crystalloid volume administer (ml): 1,000 Total IV fluid infused: 1,000 Progress Note Anesthesia document: Postop Eval 1 completed: Yes
--- NOTE | 2025-05-02 10:49 | PCM.DC ---
Discharge Instructions DC O2, CPAP, BIPAP needs Home O2 Discharge instructions: No Dressing / Incision Discharge Activity: Return to Normal Activity, May Not Drive ( while taking narcotic pain meds, when pain free), May Shower and May Take a Tub Bath (in 7 days) May resume sexual activity in: 1 week Weight Bearing Status: Full weight bearing Dressing / Incision Call your doctor if your incision/area has: Continuous Slow Oozing, Sudden Increased Bleeding, Increased Pain/ Swelling, Increased Redness and Foul Smelling Discharge Call your doctor if you observe: Fever of 101 or Higher, Using more than 1 pad per hour, Shortness of breath, Chest pain and Uncontrolled pain Suture Line Care: Avoid Pulling/Pushing and Avoid Pinching/Bending Remove Dressing in: 1 week (if present) Cleanse incision/area with: Soap & Water and Keep Dressing Clean & Dry Follow Up Care When: Call to make an appointment with your doctor for a fu/incision check in 1-2 weeks. Test Results: Test results from this visit will be discussed in further detail at your follow-up appointment, if applicable. Discharge Plan Admission Attending Provider: Jennifer Gallego Primary Care Provider: Keira Castillo Consulting Providers: Dmitri Resendiz Instructions Print Language: Estonian Discharge Orders/Prescriptions Prescriptions: New oxycodone-acetaminophen [Percocet] 5-325 mg tablet 1 tab PO Q4H PRN (Reason: pain) 7 Days Qty: 10 0RF naproxen 500 mg tablet 500 mg PO BID PRN PRN (Reason: Pain) Qty: 30 1RF No Action trazodone 50 mg tablet 50 mg PO QHS Qty: 30 12RF ascorbic acid (vitamin C) [C-500] 500 mg tablet 500 mg PO DAILY cholecalciferol (vitamin D3) [Vitamin D3] 25 mcg (1,000 unit) capsule 25 mcg PO DAILY Referrals / Follow Up: Keira Castillo PA [Primary Care Provider, Family Practice] Disposition Disposition (needs filled in before D/C Order can be placed): Home, Self Care
--- NOTE | 2025-05-02 10:56 | POSTOPAN2_ITS ---
Anesthesia Postop Eval I Sum Postop Eval Completion status Anesthesia document: Postop Eval 1 completed: Yes Anesthesia Postop Eval I Summary Anesthesia Postop Eval I Summary: Anesthesia Postop Eval I: Assessment Summary Airway patent Yes 05/02/25 09:59 MANAGEMENT ANALYST.TNES Spontaneous unlabored Yes 05/02/25 09:59 MANAGEMENT ANALYST.TNES respirations Mental status nausea No 05/02/25 09:59 MANAGEMENT ANALYST.TNES Vomiting No 05/02/25 09:59 MANAGEMENT ANALYST.TNES Anesthesia Postop Eval I: Fluid Summary Crystalloid volume administer 1,000 05/02/25 09:59 MANAGEMENT ANALYST.TNES (ml) Colloids volume administered ( ml) Blood Product volume administered (ml) Total IV fluid infused 1,000 05/02/25 09:59 MANAGEMENT ANALYST.TNES Anesthesia Postop Eval I: Summary Notes Anesthesia Complication No 05/02/25 09:59 MANAGEMENT ANALYST.TNES Anesthesia Complication Comment: Post-operative progress note Anesthesia: Postop Eval II Evaluation Mental status: Awake Pain Level: 0 nausea: No Vomiting: No
--- NOTE | 2025-05-02 10:56 | PCM.POSTANE2 ---
Anesthesia Postop Eval I Sum Postop Eval Completion status Anesthesia document: Postop Eval 1 completed: Yes Anesthesia Postop Eval I Summary Anesthesia Postop Eval I Summary: Anesthesia Postop Eval I: Assessment Summary Airway patent Yes 05/02/25 09:59 LEVER [email or web address] Spontaneous unlabored Yes 05/02/25 09:59 LEVER [email or web address].TNES respirations Mental status nausea No 05/02/25 09:59 LEVER [email or web address].TNES Vomiting No 05/02/25 09:59 LEVER [email or web address] Anesthesia Postop Eval I: Fluid Summary Crystalloid volume administer 1,000 05/02/25 09:59 LEVER [email or web address].TNES (ml) Colloids volume administered ( ml) Blood Product volume administered (ml) Total IV fluid infused 1,000 05/02/25 09:59 LEVER [email or web address] Anesthesia Postop Eval I: Summary Notes Anesthesia Complication No 05/02/25 09:59 LEVER [email or web address] Anesthesia Complication Comment: Post-operative progress note Anesthesia: Postop Eval II Evaluation Mental status: Awake Pain Level: 0 nausea: No Vomiting: No
[2025-05-02] MEDS: HYDROcodone Bitartrate/Apap 5/325 Tablet PO (11:57)
== END 2025-05-02 12:16 | disposition home or self-care (01) ==
LOC: SDC 06:29 → AC 06:32
PROVIDERS: Anesthesiology; Referring Provider Obstetrics & Gynecology; Visit Provider Obstetrics & Gynecology
PROC: (CPT 58661; principal; 2025-05-02 08:00)
DX: N83.202 Unspecified ovarian cyst, left side (principal); C50.919 Malignant neoplasm of unspecified site of unspecified female breast; N95.1 Menopausal and female climacteric states; N73.6 Female pelvic peritoneal adhesions (postinfective); Z92.21 Personal history of antineoplastic chemotherapy; G47.00 Insomnia, unspecified
CPT/HCPCS: 58661; 00840; 36415; 80048; 81025; 85027; 86850; 86900; 86901; 88108; 88302; 88305; 88313; 88341; 88342; 93005; J2405

== ENCOUNTER → 2025-05-15 | Outpatient (CLI) | payer OTHER, SELFPAY ==
[2025-05-15 12:08] LABS: Hematocrit 37.7 % (37-47); Hemoglobin 13.0 g/dL (12.0-15.0); Immature Granulocytes Count 0.060 X10^3/uL (0.0-0.0); Mean Corp Hgb Conc 34.5 g/dL (32-36); Mean Corpuscular Volume 82.9 fL (81-99); Mean Platelet Vol. 9.2 fl (6.2-12.0); NRBC Flagged by Analyzer 0 % (0-5); Platelet Count 188 K/mm3 (150-450); RBC Distribution Width CV 12.8 % (11.6-14.6); RBC Distribution Width SD 38.8 fl (35.1-43.9); Red Blood Count 4.55 M/mm3 (4.2-5.4); White Blood Count 5.2 K/mm3 (4.4-11.0)
== END | disposition home or self-care (01) ==
LOC: LAB 11:49
PROVIDERS: Referring Provider Obstetrics & Gynecology; Visit Provider Obstetrics & Gynecology
DX: G47.00 Insomnia, unspecified (principal)
CPT/HCPCS: 36415; 85025